=== PATIENT | male | born 1940 | race Caucasian/White ===

== ENCOUNTER 2017-07-14 18:50 | Emergency (ER) | payer MEDICARE, MEDICAID, SELFPAY | END 2017-07-14 20:19 | disposition home or self-care (01) | PROVIDERS: Emergency Provider Emergency Medicine; Family Provider Family Medicine; Visit Provider Emergency Medicine | DX: J20.9 Acute bronchitis, unspecified (principal); R07.89 Other chest pain; I25.10 Atherosclerotic heart disease of native coronary artery without angina pectoris; I25.2 Old myocardial infarction; E78.5 Hyperlipidemia, unspecified; I11.0 Hypertensive heart disease with heart failure; I50.9 Heart failure, unspecified; J44.0 Chronic obstructive pulmonary disease with (acute) lower respiratory infection; K21.9 Gastro-esophageal reflux disease without esophagitis; Z86.718 Personal history of other venous thrombosis and embolism; Z95.5 Presence of coronary angioplasty implant and graft; Z86.73 Personal history of transient ischemic attack (TIA), and cerebral infarction without residual deficits; Z99.81 Dependence on supplemental oxygen; Z79.82 Long term (current) use of aspirin; Z79.899 Other long term (current) drug therapy | CPT/HCPCS: 71020; 80053; 82550; 82553; 83605; 84484; 85025; 87040; 87070; 87077; 87205; 93005; 93041; 94640; 99283 ==

== ENCOUNTER 2017-09-10 10:14 | Inpatient (IN) | payer MEDICAID, MEDICARE, SELFPAY ==
[2017-09-10] VITALS (7 sets, daily range): BP systolic 130–166; BP diastolic 64–76; PULSE 80–94; RESP 20–24; TEMP 36.4–36.8; O2SAT 91–98; BMI 30.7; BMI 28.3
--- NOTE | 2017-09-10 10:39 | XR_ITS ---
XR chest 2V HISTORY: Cough and shortness of air ITS.REASON: COUGH ORDERING PHYSICIAN: Candace Guadalupe MD PATIENT AGE: 76 years COMPARISON: 07/14/2017 FINDINGS: There is cardiomegaly with mild pulmonary venous congestion consistent with mild CHF. Chronic interstitial changes once again noted with persistent 2.57 m nodular opacity overlying left lower chest which is been present dating back to 04/01/2016. There are chronic changes in the lingula. No lobar consolidation or collapse. IMPRESSION: Mild CHF Chronic parenchymal changes with no change in the 2.5 cm left lower lobe nodular opacity
--- NOTE | 2017-09-10 10:54 | HMH.EDSOB ---
ED Disposition Clinical Impression: COPD exacerbation, Respiratory acidosis, Atelectasis of both lungs, CAD (coronary artery disease) Disposition: Home, Self-Care Condition on Discharge: Fair Referrals: Colby Quan MD [Primary Care Provider] - - Critical Care Critical Care Time: No Attestation: On 09/10/17, the high probability of a clinically significant, sudden or life threatening deterioration of the following system(s) required my full and direct attention, intervention and personal management. The time I documented below is in addition to time spent performing reported procedures but includes the following listed in this critical care notation. Medical Decision Making - Medical Records Medical records reviewed: Yes: I reviewed the patient's medical records. Vital Signs: 09/10/17 10:29 Temperature 98.3 F Temperature Source Oral Pulse Rate [Right Brachial] 86 Respiratory Rate 24 Blood Pressure [Right Arm] 143/73 Blood Pressure Mean [Right Arm] 96 Blood Pressure Source [Right Arm] Automatic Cuff Blood Pressure Position [Right Arm] Sitting 02 Sat by Pulse Oximetry 98 Oxygen Delivery Method Room Air Nasal Cannula - Lab Data Lab Results 09/10/17 10:45: Specimen Source Right radial, O2 % 2 lpm, ABG pH 7.31 L, ABG pCO2 67.7 H, ABG pO2 64.0 L, ABG HCO3 33.3 H, ABG Total CO2 35.4 H, ABG O2 Saturation 91, ABG Base Excess 7.1 H, Claudio Test Acceptable 09/10/17 11:20: WBC 8.1, RBC 4.07 L, Hgb 12.0 L, Hct 38.5 L, MCV 94.6 H, MCH 29.5, MCHC 31.1 L, RDW 14.3, Plt Count 148, MPV 10.3, Neut % (Auto) 78.5, Lymph % (Auto) 14.2, [place] % (Auto) 6.3, Eos % (Auto) 0.6, Baso % (Auto) 0.4, Neut # (Auto) 6.4, Lymph # (Auto) 1.2, [place] # (Auto) 0.5, Eos # (Auto) 0.1, Baso # (Auto) 0.0 09/10/17 11:20: Sodium 143, Potassium 4.2, Chloride 102, Carbon Dioxide 37 H, Anion Gap 8.2, BUN 19 H, Creatinine 1.39 H, Estimated Creat Clear 54, Estimated GFR 50 L, Est GFR ( Amer) 60, Glucose 159 H, Calcium 8.6, Total Bilirubin 0.8, AST 24, ALT 49, Alkaline Phosphatase 111, Total Creatine Kinase 113, CK-MB (CK-2) 2.0, CK-MB (CK-2) Rel Index 1.8, Troponin I < 0.02, Total Protein 7.9, Albumin 3.9, Globulin 4.0 H, Albumin/Globulin Ratio 1.0 L 09/10/17 11:20: Lactic Acid 1.5 09/10/17 11:20: Influenza Type A Ag Negative, Influenza Type B Ag Negative Result diagrams: 09/10/17 11:20 09/10/17 11:20 Orders (Tests/Meds): ED MEDICATIONS Discontinued Medications Generic Name Dose Route Start Last Admin Trade Name Freq PRN Reason Stop Dose Admin Albuterol/Ipratropium 3 ml 09/10/17 10:51 Duoneb 3ml Neb IH 09/10/17 10:52 ONCE ONE Famotidine 20 mg 09/10/17 10:51 09/10/17 11:06 Pepcid 20mg/2ml Vial IV 09/10/17 10:52 20 mg ONCE ONE Administration Methylprednisolone Sodium Succinate 125 mg 09/10/17 10:51 09/10/17 11:06 Solu-Medrol 125mg/2ml Vial IV 09/10/17 10:52 125 mg ONCE ONE Administration ORDERS Category Date Time Status Chest XR 2 view (NOT portable) [XR chest 2V] Stat Exams 09/10/17 10:39 Taken B-Type Natriuretic Peptide Stat Lab 09/10/17 11:20 Received Blood Culture Stat Micro 09/10/17 11:20 Received Sputum Culture & Gram Stain Stat Micro 09/10/17 10:52 Ordered Arterial Blood Gas Stat RT 09/10/17 10:39 Ordered - Radiology Data #1 Image(s): Chest Image Reviewed: Yes I reviewed the patient's radiology image - Han Inquiry Pt receiving controlled substance: No Han was queried for this patient: No Medical Decision Making Narrative: Patient does have respiratory acidosis with bibasilar atelectasis, cannot exclude acute infiltrate, will Dr. Quan for admission. Leighann is automatic centrifugal station operator for him. Dr. Lawton accepted the patient for admission. Resp/SOB HPI - General Chief Complaint: Upper Respiratory Infection Stated Complaint: cough wheezing can't urinate Mode of Arrival: Ambulatory Limitations: No Limitations Description of Symptoms (Recalled from ER Triag
[2017-09-10 10:55] LABS: ABG Base Excess 7.1 mmol/L (-2.4-2.3); ABG HCO3 33.3 mmhg (22.0-26.0); ABG Oxygen Saturation 91 % (90-100); ABG PH 7.31 mmol/L (7.35-7.45); ABG TCO2 35.4 mmhg (23-27); Oxygen 2 LPM %
[2017-09-10 10:56] LABS: Allen's Test ACCEPTABLE; Source Right Radial
[2017-09-10 10:57] LABS: ABG PCO2 67.7 mmhg (35.0-45.0)
--- NOTE | 2017-09-10 11:01 | ED_ITS ---
ED Disposition Clinical Impression: COPD exacerbation, Respiratory acidosis, Atelectasis of both lungs, CAD ( coronary artery disease) Disposition: Home, Self-Care Condition on Discharge: Fair Referrals: Colby Quan MD [Primary Care Provider] - - Critical Care Critical Care Time: No Attestation: On 09/10/17, the high probability of a clinically significant, sudden or life threatening deterioration of the following system(s) required my full and direct attention, intervention and personal management. The time I documented below is in addition to time spent performing reported procedures but includes the following listed in this critical care notation. Medical Decision Making - Medical Records Medical records reviewed: Yes: I reviewed the patient's medical records. Vital Signs: 09/10/17 10:29 Temperature 98.3 F Temperature Source Oral Pulse Rate [Right Brachial] 86 Respiratory Rate 24 Blood Pressure [Right Arm] 143/73 Blood Pressure Mean [Right Arm] 96 Blood Pressure Source [Right Arm] Automatic Cuff Blood Pressure Position [Right Arm] Sitting 02 Sat by Pulse Oximetry 98 Oxygen Delivery Method Room Air Nasal Cannula - Lab Data Lab Results 09/10/17 10:45: Specimen Source Right radial, O2 % 2 lpm, ABG pH 7.31 L, ABG pCO2 67.7 H, ABG pO2 64.0 L, ABG HCO3 33.3 H, ABG Total CO2 35.4 H, ABG O2 Saturation 91, ABG Base Excess 7.1 H, Claudio Test Acceptable 09/10/17 11:20: WBC 8.1, RBC 4.07 L, Hgb 12.0 L, Hct 38.5 L, MCV 94.6 H, MCH 29.5, MCHC 31.1 L, RDW 14.3, Plt Count 148, MPV 10.3, Neut % (Auto) 78.5, Lymph % (Auto) 14.2, [place] % (Auto) 6.3, Eos % (Auto) 0.6, Baso % (Auto) 0.4, Neut # ( Auto) 6.4, Lymph # (Auto) 1.2, [place] # (Auto) 0.5, Eos # (Auto) 0.1, Baso # (Auto ) 0.0 09/10/17 11:20: Sodium 143, Potassium 4.2, Chloride 102, Carbon Dioxide 37 H, Anion Gap 8.2, BUN 19 H, Creatinine 1.39 H, Estimated Creat Clear 54, Estimated GFR 50 L, Est GFR ( Amer) 60, Glucose 159 H, Calcium 8.6, Total Bilirubin 0.8, AST 24, ALT 49, Alkaline Phosphatase 111, Total Creatine Kinase 113, CK-MB (CK-2) 2.0, CK-MB (CK-2) Rel Index 1.8, Troponin I < 0.02, Total Protein 7.9, Albumin 3.9, Globulin 4.0 H, Albumin/Globulin Ratio 1.0 L 09/10/17 11:20: Lactic Acid 1.5 09/10/17 11:20: Influenza Type A Ag Negative, Influenza Type B Ag Negative Result diagrams: 09/10/17 11:20 09/10/17 11:20 Orders (Tests/Meds): ED MEDICATIONS Discontinued Medications Generic Name Dose Route Start Last Admin Trade Name Freq PRN Reason Stop Dose Admin Albuterol/Ipratropium 3 ml 09/10/17 10:51 Duoneb 3ml Neb IH 09/10/17 10:52 ONCE ONE Famotidine 20 mg 09/10/17 10:51 09/10/17 11:06 Pepcid 20mg/2ml Vial IV 09/10/17 10:52 20 mg ONCE ONE Administration Methylprednisolone Sodium Succinate 125 mg 09/10/17 10:51 09/10/17 11:06 Solu-Medrol 125mg/2ml Vial IV 09/10/17 10:52 125 mg ONCE ONE Administration ORDERS Category Date Time Status Chest XR 2 view (NOT portable) [XR chest 2V] Stat Exams 09/10/17 10:39 Taken B-Type Natriuretic Peptide Stat Lab 09/10/17 11:20 Received Blood Culture Stat Micro 09/10/17 11:20 Received Sputum Culture & Gram Stain Stat Micro 09/10/17 10:52 Ordered Arterial Blood Gas Stat RT 09/10/17 10:39 Ordered - Radiology Data #1 Image(s): Chest
[2017-09-10 11:31] LABS: Basophils % 0.4 % (0.1-2.0); Eosinophils # 0.1 K/mm3 (0.0-0.4); Eosinophils % 0.6 % (0.1-12.0); Hematocrit 38.5 % (42.0-52.0); Lymphocytes # 1.2 K/mm3 (0.7-4.5); Lymphocytes % 14.2 K/mm3 (10-50); Mean Corpuscular HGB Conc 31.1 g/dL (31.8-35.4); Mean Corpuscular Hemoglobin 29.5 pg (27.0-31.2); Mean Corpuscular Volume 94.6 fl (80-94); Mean Platelet Volume 10.3 fl (7.4-10.4); Monocytes # 0.5 K/mm3 (0.1-1.0); Monocytes % 6.3 % (1.7-9.3); Neutrophils # 6.4 K/mm3 (1.8-7.8); Neutrophils % 78.5 % (37.0-80.0); Platelet Count 148 K/mm3 (142-424); Red Blood Count 4.07 M/mm3 (4.60-6.20); Red Cell Distribution Width 14.3 % (11.5-17.5); White Blood Count 8.1 K/mm3 (4.8-10.8)
[2017-09-10 11:45] LABS: Lactic Acid 1.5 mmol/L (0.4-2.0)
[2017-09-10 11:55] LABS: Alanine Aminotransferase 49 U/L (12-78); Albumin Level 3.9 gm/dL (3.4-5.0); Alkaline Phosphatase 111 U/L (46-116); Anion Gap 8.2 mEq/L (5-15); Aspartate Amino Transferase 24 U/L (15-37); Bilirubin,Total 0.8 mg/dL (0.2-1.0); Blood Urea Nitrogen 19 mg/dL (7-18); CKMB Relative Index 1.8 U/L (0-4.0); Calcium 8.6 mg/dL (8.5-10.1); Carbon Dioxide 37 mmol/L (21.0-32.0); Chloride 102 mmol/L (98-107); Creatine Kinase 113 U/L (39-308); Creatinine Clearance Estimated 54 mL/min (0-300); Creatinine,Serum 1.39 mg/dL (0.70-1.30); Estimated Glomerular Filt Rate 50 ml/min (>60); GFR (African American) 60 ML/MIN (>60); Glucose 159 mg/dL (74-106); Potassium 4.2 mmoL/L (3.5-5.1); Sodium 143 mmol/L (136-145); Total Protein,Serum 7.9 gm/dL (6.4-8.2); Troponin I < 0.02 ng/ml (0.00-0.06)
--- NOTE | 2017-09-10 20:10 | PC.NURSE ---
RN MADE AWARE OF BP
[2017-09-11] VITALS (16 sets, daily range): BP systolic 152–190; BP diastolic 66–100; PULSE 59–98; RESP 18–22; TEMP 36.4–36.9; O2SAT 88–96; BMI 27.6
--- NOTE | 2017-09-11 04:40 | PC.NURSE ---
PT WITH WHEEZING THROUGHOUT LUNGS. PRODUCTIVE COUGH. OXYGEN AT 2L PER NC. PT CONFUSED THIS AM, PULLED OUT IV FROM RIGHT FA. CONTINUE TO MONITOR.
[2017-09-11 07:06] LABS: Basophils % 0.1 % (0.1-2.0); Eosinophils % 0.1 % (0.1-12.0); Hematocrit 38.9 % (42.0-52.0); Hemoglobin 12.5 g/dL (14.1-18.0); Lymphocytes # 0.6 K/mm3 (0.7-4.5); Lymphocytes % 8.5 K/mm3 (10-50); Mean Corpuscular Hemoglobin 29.9 pg (27.0-31.2); Mean Corpuscular Volume 93.3 fl (80-94); Mean Platelet Volume 10.2 fl (7.4-10.4); Monocytes # 0.2 K/mm3 (0.1-1.0); Monocytes % 2.6 % (1.7-9.3); Neutrophils # 6.5 K/mm3 (1.8-7.8); Neutrophils % 88.7 % (37.0-80.0); Platelet Count 141 K/mm3 (142-424); Red Blood Count 4.17 M/mm3 (4.60-6.20); Red Cell Distribution Width 14.2 % (11.5-17.5); White Blood Count 7.4 K/mm3 (4.8-10.8)
[2017-09-11 07:07] LABS: MANUAL DIFFERENTIAL MANUAL DIFFERENTIAL (MANUAL DIFF)
[2017-09-11 07:12] LABS: Anion Gap 10.9 mEq/L (5-15); Blood Urea Nitrogen 20 mg/dL (7-18); Carbon Dioxide 36 mmol/L (21.0-32.0); Chloride 101 mmol/L (98-107); Creatinine Clearance Estimated 58 mL/min (0-300); Creatinine,Serum 1.17 mg/dL (0.70-1.30); Estimated Glomerular Filt Rate 60 ml/min (>60); GFR (African American) 73 ML/MIN (>60); Glucose 207 mg/dL (74-106); Potassium 3.9 mmoL/L (3.5-5.1); Sodium 144 mmol/L (136-145)
--- NOTE | 2017-09-11 07:36 | HMH.PHAVTE ---
[facility] Pharmacy VTE Monitoring - Patient Demographics Admission date: 09/10/17 Report Date: 09/11/17 Time: 07:36 Allergies/Adverse Reactions: Patient Allergies No Known Allergies Allergy (Unverified 07/18/17 14:45) Height: 1.68 m Weight: 78.16 kg Patient Problems: Current Active Problems COPD exacerbation (Acute) Respiratory acidosis (Acute) Atelectasis of both lungs (Acute) CAD (coronary artery disease) (Acute) - VTE Risk Labs: VTE Related Lab Results Hgb 12.5 g/dL (14.1-18.0) L 09/11/17 06:25 Hct 38.9 % (42.0-52.0) L 09/11/17 06:25 Plt Count 141 K/mm3 (142-424) L 09/11/17 06:25 BUN 20 mg/dL (7-18) H 09/11/17 06:25 Creatinine 1.17 mg/dL (0.70-1.30) 09/11/17 06:25 Estimated Creat Clear 58 mL/min (0-300) 09/11/17 06:25 Was VTE Risk Assessment Performed: Yes VTE Score: 5 VTE Risk Level: Low Risk - Prophylaxis VTE Prophylaxis Ordered?: Yes Types of VTE Prophylaxis: TEDS Knee High Location of Applied Device: Bilateral Lower Extremeties - VTE Diagnosis Confirmed Treatment or plan recommended: Continue Current Treatment
--- NOTE | 2017-09-11 09:07 | HMH.HP ---
*Admission Date: 09/10/17 <GarciaGiftyAna - 09/11/17 09:14> *Chief complaint: cough and SOB <GarciaGiftyAna 09/11/17 09:14> *History of present illness: Mr Kim is a 76 year old white male with COPD oxygen dependent, coronary artery disease, DM, and HTN. He has been experiencing shortness of breath with a cough for the past week. He was seen in the office of [facility] on 09/07/17 and was started on Amocxicillin. He filled the Rx 09/10/17; He went to a [facility] 09/09/17 and became SOB after. He called the ambulance service who gave him a breathing treatment which seemed to help. He again became worse 09/10/17 and a family member brought him to the ER for evaluation. He also describes a burning pain across the lower chest.. Tums did help briefly. He denies fever but did have RN. With evaluation in the ER patient was found to be in a respiratory acidosis. He was then admitted with a respiratory infection. This AM he states that he feels better. He did sleep. He states upon awakening this AM and he was confused and pulled out his IV. Now he is fine. He is sitting on the bedside and has finished all of his breakfast. <JoseAna 09/11/17 13:04> [facility] History Medical History: Reports:: Arrhythmia, Atherosclerotic Heart Disease, Atrial Fibrillation, Chronic Obstructive Pulmonary Disease (COPD), Coronary Artery Disease, Diabetes Mellitus Type 2, Gastroesophageal Reflux Disease(GERD), Home Oxygen, Hyperlipidemia, Hypertension, Lung Disease, Renal Disease, Ulcer <Ana Garcia 09/11/17 13:04> Comment: Metabolic encephalopathy <Ana Garcia 09/11/17 13:04> Laterality Cases: Bilateral: Cataract <Ana Garcia 09/11/17 13:04> Comment: Renal artery stent; LLE stent placement, cholecystectomy <Ana Garcia 09/11/17 13:04> - *Social History Smoking Status: Former smoker <Ana Garcia 09/11/17 09:14> Tobacco Type: cigarettes <Ana Garcia 09/11/17 09:14> Alcohol Intake: never <Ana Garcia 09/11/17 09:14> - Psychiatric History Expresses thoughts of harming self/others: None <Ana Garcia 09/11/17 09:14> Suicide Plan Description: No Plan <Ana Garcia 09/11/17 09:14> Review of Systems - Constitutional Reports chills, Denies body ache(s), Denies fever(s) <Ana Garcia 09/11/17 09:26> - ENT Reports dizziness, Denies sore throat [facility] 09/11/17 09:26> - *Cardiovascular Reports chest pain, Reports shortness of breath with activity, Denies excessive sweating, Denies generalized swelling, Denies leg swelling <[facility] 09/11/17 09:26> - *Respiratory Reports chest congestion, Reports cough, Reports shortness of breath, Reports wheezing, Denies coughing up blood <Ana Garcia 09/11/17 09:26> - *Gastrointestinal Denies abdominal pain, Denies belching, Denies bloating, Denies black, tarry stools <Ana Garcia 09/11/17 09:26> - *Genitourinary Reports difficulty urinating, Reports urinary hesitancy, Denies blood in urine <[facility] 09/11/17 09:26> - *Musculoskeletal Denies abnormal walking, Denies body aches <Ana Garcia 09/11/17 09:26> Meds Home Medications Medication Instructions Recorded Confirmed Type Albuterol Sulfate [Albuterol HFA 1 - 2 puffs IH Q4-6H PRN 09/10/17 09/10/17 History Inhaler] Aspirin [Aspir 81] 81 mg PO DAILY 09/10/17 09/10/17 History Atorvastatin Calcium [Lipitor 80mg 80 mg PO DAILY 09/10/17 09/10/17 History Tablet] Benzonatate [Benzonatate 100mg 100 mg PO TID PRN 09/10/17 09/10/17 History cap] Carvedilol [Carvedilol 25mg Tab] 25 mg PO BID 09/10/17 09/10/17 History Dabigatran Etexilate Mesylate 150 mg PO BID 09/10/17 09/10/17 History [Pradaxa] Esomeprazole Magnesium [Nexium] 40 mg PO DAILY 09/10/17 09/10/17 History Furosemide [Lasix 20mg tab] 20 mg PO DAILY 09/10/17 09/10/17 History Gabapentin [Gabapentin 300mg Cap] 300 mg PO TID 09/10/17 09/10/17 History Lisinopril [Lisinopril 20mg Tab] 20 mg PO
--- NOTE | 2017-09-11 09:15 | P.HP_ITS ---
*Admission Date: 09/10/17 <GarciaGiftyAna - 09/11/17 09:14> *Chief complaint: cough and SOB <GarciaGiftyAna 09/11/17 09:14> *History of present illness: Mr Kim is a 76 year old white male with COPD oxygen dependent, coronary artery disease, DM, and HTN. He has been experiencing shortness of breath with a cough for the past week. He was seen in the office of [facility] on 09/07/17 and was started on Amocxicillin. He filled the Rx 09/10/17; He went to a [facility] 09/09/17 and became SOB after. He called the ambulance service who gave him a breathing treatment which seemed to help. He again became worse 09/10/17 and a family member brought him to the ER for evaluation. He also describes a burning pain across the lower chest.. Tums did help briefly. He denies fever but did have RN. With evaluation in the ER patient was found to be in a respiratory acidosis. He was then admitted with a respiratory infection. This AM he states that he feels better. He did sleep. He states upon awakening this AM and he was confused and pulled out his IV. Now he is fine. He is sitting on the bedside and has finished all of his breakfast. <JoseAna 09/11/17 13:04> [facility] History Medical History: Reports:: Arrhythmia, Atherosclerotic Heart Disease, Atrial Fibrillation, Chronic Obstructive Pulmonary Disease (COPD), Coronary Artery Disease, Diabetes Mellitus Type 2, Gastroesophageal Reflux Disease(GERD), Home Oxygen, Hyperlipidemia, Hypertension, Lung Disease, Renal Disease, Ulcer < Ana Garcia 09/11/17 13:04> Comment: Metabolic encephalopathy <Ana Garcia 09/11/17 13:04> Laterality Cases: Bilateral: Cataract <Ana Garcia 09/11/17 13:04> Comment: Renal artery stent; LLE stent placement, cholecystectomy <Ana Garcia 09/11/17 13:04> - *Social History Smoking Status: Former smoker <Ana Garcia 09/11/17 09:14> Tobacco Type: cigarettes <Ana Garcia 09/11/17 09:14> Alcohol Intake: never <Ana Garcia 09/11/17 09:14> - Psychiatric History Expresses thoughts of harming self/others: None <Ana Garcia 09/11/17 09: 14> Suicide Plan Description: No Plan <Ana Garcia 09/11/17 09:14> Review of Systems - Constitutional Reports chills, Denies body ache(s), Denies fever(s) <Ana Garcia 09:26> - ENT Reports dizziness, Denies sore throat <[facility] 09/11/17 09:26> - *Cardiovascular Reports chest pain, Reports shortness of breath with activity, Denies excessive sweating, Denies generalized swelling, Denies leg swelling <Ana Garcia 09:26> - *Respiratory Reports chest congestion, Reports cough, Reports shortness of breath, Reports wheezing, Denies coughing up blood <Ana Garcia 09/11/17 09:26> - *Gastrointestinal Denies abdominal pain, Denies belching, Denies bloating, Denies black, tarry stools <Ana Garcia 09/11/17 09:26> - *Genitourinary Reports difficulty urinating, Reports urinary hesitancy, Denies blood in urine <[facility] 09/11/17 09:26> - *Musculoskeletal Denies abnormal walking, Denies body aches <Ana Garcia 09/11/17 09:26> Meds Home Medications Medication Instructions Recorded Confirmed Type Albuterol Sulfate [Albuterol HFA 1 - 2 puffs IH Q4-6H PRN 09/10/17 09/10/17 History Inhaler] Aspirin [Aspir 81] 81 mg PO DAILY 09/10/17 09/10/17 History Atorvastatin Calcium [Lipitor 80mg 80 mg PO DAILY 09/10/17 09/10/17 History Tablet] Benzonatate [Benzonatate 100mg 100 mg PO TID PRN 09/10/17 09/10/17 History cap] Carvedilol [Carvedilol 25mg Tab] 25
[2017-09-11 11:13] LABS: Lymphocytes % 9 % (10-50); Monocytes % 3 % (2-9); Neutrophils % 87 % (42-76); Platelet Estimate Normal; RBC Morphology Normal; Total Cells Counted 100
[2017-09-12] VITALS (9 sets, daily range): BP systolic 193–203; BP diastolic 90–107; PULSE 70–114; RESP 18–22; TEMP 36.4–36.6; O2SAT 2–98
--- NOTE | 2017-09-12 03:52 | PC.NURSE ---
PATIENT HAS BEEN AWAKE FOR MOST OF SHIFT, ONLY SLEEPING FOR A FEW HOURS ON AND OFF. HE HAS BEEN VERY RESTLESS AND WALKING AROUND IN ROOM. ON EXERTION PATIENT DOES BECOME SLIGHTLY SOA WITH AUDIBLE WHEEZES THROUGHOUT. NO DISTRESS NOTED. HE HAS DENIED ANY PAIN. HE DOES BECOME SLIGHTLY CONFUSED TO PLACE/SITUATION AT TIMES, BUT IS EASILY REORIENTED. PATIENT CURRENT IN BED AWAKE. NO OTHER PROBLEMS NOTED AT THIS TIME. VSS. WILL CONTINUE TO MONITOR. SAFETY MEASURES IN PLACE, CALL LIGHT IN REACH.
[2017-09-12 07:06] LABS: Blood Urea Nitrogen 27 mg/dL (7-18); Carbon Dioxide 35 mmol/L (21.0-32.0); Chloride 100 mmol/L (98-107); Creatinine Clearance Estimated 49 mL/min (0-300); Creatinine,Serum 1.35 mg/dL (0.70-1.30); Estimated Glomerular Filt Rate 51 ml/min (>60); GFR (African American) 62 ML/MIN (>60); Glucose 224 mg/dL (74-106); Sodium 142 mmol/L (136-145)
[2017-09-12 07:26] LABS: Basophils % 0.1 % (0.1-2.0); Eosinophils % 0.1 % (0.1-12.0); Hematocrit 39.3 % (42.0-52.0); Hemoglobin 12.7 g/dL (14.1-18.0); Lymphocytes # 0.9 K/mm3 (0.7-4.5); Lymphocytes % 8.7 K/mm3 (10-50); Mean Corpuscular HGB Conc 32.3 g/dL (31.8-35.4); Mean Corpuscular Volume 92.9 fl (80-94); Mean Platelet Volume 10.5 fl (7.4-10.4); Monocytes # 0.4 K/mm3 (0.1-1.0); Monocytes % 3.6 % (1.7-9.3); Neutrophils # 8.7 K/mm3 (1.8-7.8); Neutrophils % 87.6 % (37.0-80.0); Platelet Count 175 K/mm3 (142-424); Red Blood Count 4.23 M/mm3 (4.60-6.20); Red Cell Distribution Width 14.3 % (11.5-17.5); White Blood Count 9.9 K/mm3 (4.8-10.8)
[2017-09-12 07:30] LABS: MANUAL DIFFERENTIAL MANUAL DIFFERENTIAL (MANUAL DIFF)
--- NOTE | 2017-09-12 07:57 | HMH.ACPN2 ---
<Ana Garcia - Last Filed: 09/12/17 07:57> Internal Medicine - PN: Subj *Date: 09/12/17 *Time: 07:57 Interval history: Patient states he feels fine today. He states he has to be discharged to go to his daughter's . He denies chest pain and shortness of breath. Ambulates in the room without difficulty. He has been eating well. He has been voiding QS. Per nursing notes: patient was restless during the night. Up and wandering in the room much of the time. Blood pressure noted to be elevated as well. Has not been restarted on carvedilol or amlodipine. Exam Vital signs and Labs for Last 24 Hours: Temp Pulse Resp BP Pulse Ox 97.8 F 86 20 203/107 2 L 09/12/17 03:42 09/12/17 06:01 09/12/17 03:42 09/12/17 03:42 09/12/17 06:01 Laboratory Results - last 24 hr 09/11/17 06:25: Total Counted 100, Neutrophils % (Manual) 87 H, Band Neutrophils % 1.0, Lymphocytes % (Manual) 9 L, Monocytes % (Manual) 3, Platelet Estimate Normal, RBC Morphology Normal 09/12/17 06:35: WBC 9.9 D, RBC 4.23 L, Hgb 12.7 L, Hct 39.3 L, MCV 92.9, MCH 30.0, MCHC 32.3, RDW 14.3, Plt Count 175, MPV 10.5 H, Neut % (Auto) 87.6 H, Lymph % (Auto) 8.7 L, [place] % (Auto) 3.6, Eos % (Auto) 0.1, Baso % (Auto) 0.1, Neut # (Auto) 8.7 H, Lymph # (Auto) 0.9, [place] # (Auto) 0.4, Eos # (Auto) 0.0, Baso # (Auto) 0.0 09/12/17 06:35: Sodium 142, Potassium 4.0, Chloride 100, Carbon Dioxide 35 H, Anion Gap 11.0, BUN 27 H D, Creatinine 1.35 H, Estimated Creat Clear 49, Estimated GFR 51 L, Est GFR ( Amer) 62, Glucose 224 H I & O for Last 24 hours: Intake & Output 02/10/18 02/11/18 02/12/18 02/13/18 11:59 11:59 11:59 11:59 Intake Total 240 / 240 480 / 480 Output Total 550 / 550 Balance 240 / 240 -70 / -70 Weight 172 lb 5 oz 170 lb 6.677 oz - Constitutional no acute distress - *Routine Respiratory Exam Present: wheezes Comments: Do clear when sitting up. - *Routine Cardiovascular Exam Present: RRR - *Routine Abdominal Exam Present: soft, normoactive bowel sounds. Absent: tenderness - *Routine Extremities Exam Present: full ROM. Absent: edema - *Routine Neurological Exam Present: alert, oriented X3 Assessment and Plan (1) COPD exacerbation Current visit: Yes Status: Acute Category: Medical Code(s): J44.1 - Chronic obstructive pulmonary disease with (acute) exacerbation (2) COPD (chronic obstructive pulmonary disease) Current visit: Yes Status: Acute Category: Medical Code(s): J44.9 - Chronic obstructive pulmonary disease, unspecified (3) Respiratory acidosis Current visit: Yes Status: Acute Category: Medical Code(s): E87.2 - Acidosis (4) Chest pain Current visit: Yes Status: Acute Category: Medical Code(s): R07.9 - Chest pain, unspecified (5) CAD (coronary artery disease) Current visit: Yes Status: Chronic Category: Medical Code(s): I25.10 - Atherosclerotic heart disease of [place] coronary artery without angina pectoris (6) Non compliance with medical treatment Current visit: Yes Status: Acute Category: Medical Code(s): Z91.19 - Patient's noncompliance with other medical treatment and regimen - Assessment and plan all Dx Assessment and Plan for all problems:: Carvedilol and amlodipine reordered. Will continue with current care. Possibly home today. Pradaxa not available. Temporarily on Lovenox. <Colby Quan - Last Filed: 09/12/17 09:07> Internal Medicine - PN: Subj *Date: 09/12/17 *Time: 09:06 Exam Vital signs and Labs for Last 24 Hours: Temp Pulse Resp BP Pulse Ox 97.5 F L 94 H 22 193/90 98 09/12/17 07:54 09/12/17 07:54 09/12/17 07:54 09/12/17 07:54 09/12/17 07:54 Laboratory Results - last 24 hr 09/11/17 06:25: Total Counted 100, Neutrophils % (Manual) 87 H, Band Neutrophils % 1.0, Lymphocytes % (Manual) 9 L, Monocytes % (Manual) 3, Platelet Estimate Normal, RBC Morphology Normal 09/12/17 06:35: WBC 9.9 D, RBC 4.23
--- NOTE | 2017-09-12 08:01 | P.PN_ITS ---
<Ana Garcia - Last Filed: 09/12/17 07:57> Internal Medicine - PN: Subj *Date: 09/12/17 *Time: 07:57 Interval history: Patient states he feels fine today. He states he has to be discharged to go to his daughter's . He denies chest pain and shortness of breath. Ambulates in the room without difficulty. He has been eating well. He has been voiding QS. Per nursing notes: patient was restless during the night. Up and wandering in the room much of the time. Blood pressure noted to be elevated as well. Has not been restarted on carvedilol or amlodipine. Exam Vital signs and Labs for Last 24 Hours: Temp Pulse Resp BP Pulse Ox 97.8 F 86 20 203/107 2 L 09/12/17 03:42 09/12/17 06:01 09/12/17 03:42 09/12/17 03:42 09/12/17 06:01 Laboratory Results - last 24 hr 09/11/17 06:25: Total Counted 100, Neutrophils % (Manual) 87 H, Band Neutrophils % 1.0, Lymphocytes % (Manual) 9 L, Monocytes % (Manual) 3, Platelet Estimate Normal, RBC Morphology Normal 09/12/17 06:35: WBC 9.9 D, RBC 4.23 L, Hgb 12.7 L, Hct 39.3 L, MCV 92.9, MCH 30.0, MCHC 32.3, RDW 14.3, Plt Count 175, MPV 10.5 H, Neut % (Auto) 87.6 H, Lymph % (Auto) 8.7 L, [place] % (Auto) 3.6, Eos % (Auto) 0.1, Baso % (Auto) 0.1, Neut # (Auto) 8.7 H, Lymph # (Auto) 0.9, [place] # (Auto) 0.4, Eos # (Auto) 0.0, Baso # (Auto) 0.0 09/12/17 06:35: Sodium 142, Potassium 4.0, Chloride 100, Carbon Dioxide 35 H, Anion Gap 11.0, BUN 27 H D, Creatinine 1.35 H, Estimated Creat Clear 49, Estimated GFR 51 L, Est GFR ( Amer) 62, Glucose 224 H I & O for Last 24 hours: Intake & Output 02/10/18 02/11/18 02/12/18 02/13/18 11:59 11:59 11:59 11:59 Intake Total 240 / 240 480 / 480 Output Total 550 / 550 Balance 240 / 240 -70 / -70 Weight 172 lb 5 oz 170 lb 6.677 oz - Constitutional no acute distress - *Routine Respiratory Exam Present: wheezes Comments: Do clear when sitting up. - *Routine Cardiovascular Exam Present: RRR - *Routine Abdominal Exam Present: soft, normoactive bowel sounds. Absent: tenderness - *Routine Extremities Exam Present: full ROM. Absent: edema - *Routine Neurological Exam Present: alert, oriented X3 Assessment and Plan (1) COPD exacerbation Current visit: Yes Status: Acute Category: Medical Code(s): J44.1 - Chronic obstructive pulmonary disease with (acute) exacerbation (2) COPD (chronic obstructive pulmonary disease) Current visit: Yes Status: Acute Category: Medical Code(s): J44.9 - Chronic obstructive pulmonary disease, unspecified (3) Respiratory acidosis Current visit: Yes Status: Acute Category: Medical Code(s): E87.2 - Acidosis (4) Chest pain Current visit: Yes Status: Acute Category: Medical Code(s): R07.9 - Chest pain, unspecified (5) CAD (coronary artery disease) Current visit: Yes Status: Chronic Category: Medical Code(s): I25.10 - Atherosclerotic heart disease of [place] coronary artery without angina pectoris (6) Non compliance with medical treatment Current visit: Yes Status: Acute Category: Medical Code(s): Z91.19 - Patient's noncompliance with other medical treatment and regimen - Assessment and plan all Dx Assessment and Plan for all problems:: Carvedilol and amlodipine reordered. Will continue with current care. Possibly home today. Pradaxa not available. Temporarily on Lovenox. <Colby Quan - Last Filed: 09/12/17 09:07> Inter
[2017-09-12 09:19] LABS: Lymphocytes % 8 % (10-50); Monocytes % 4 % (2-9); Neutrophils % 88 % (42-76); Total Cells Counted 100
[2017-09-12 09:21] LABS: Ovalocytes 1+; Poikilocytosis 1+
[2017-09-12 09:22] LABS: Platelet Estimate Normal
--- NOTE | 2017-09-12 21:23 | HMH.DCSUM ---
General - General Admission date: 09/10/17 Discharge date: 09/12/17 HPI HPI: Mr Kim is a 76 year old white male with COPD oxygen dependent, coronary artery disease, DM, and HTN. He has been experiencing shortness of breath with a cough for the past week. He was seen in the office of [facility] on 09/07/17 and was started on Amoxicillin. He filled the Rx 09/10/17; He went to [place] 09[place]09[place]17 and became SOB afterward. He called the ambulance service who gave him a breathing treatment which seemed to help. He again became worse 09/10/17 and a family member brought him to the ER for evaluation. He also describes a burning pain across the lower chest. Tums did help briefly. He denies fever but did have RN. With evaluation in the ER patient was found to be in a respiratory acidosis. He was then admitted with a respiratory infection. This AM he states that he feels better. He did sleep. He states upon awakening this AM and he was confused and pulled out his IV. Now he is fine. He is sitting on the bedside and has finished all of his breakfast. Objective Vital signs: Temp Pulse Resp BP Pulse Ox 97.5 F L 84 18 193/90 93 L 09/12/17 07:54 09/12/17 12:00 09/12/17 12:00 09/12/17 07:54 09/12/17 12:00 Narrative: - Constitutional no acute distress Comments: sitting on bedside eating his breakfast - *Routine HEENT Exam Head: Present: normocephalic, atraumatic Eye: Present: PERRL. Absent: conjunctival icterus, scleral injection ENT: Present: mucous membranes moist Comments: no teeth - *Routine Neck Exam Present: supple, full ROM. Absent: lymphadenopathy, thyromegaly - *Routine Respiratory Exam Present: diminished air movement (bilaterally posteriorly; occasional wheeze) - *Routine Cardiovascular Exam Present: RRR, murmur - *Routine Abdominal Exam Present: soft, normoactive bowel sounds. Absent: tenderness, distended, guarding, firm - *Routine Extremities Exam Present: full ROM. Absent: edema - *Routine Neurological Exam Present: alert, oriented X3. Absent: altered mental status Hard of hearing Hospital Course Hospital Course: He was started on abx, nebs, and steroids. His CXR showed nothing acute. The patient improved and was able to be weaned from his oxygen. He was stable to be discharged home. Results Labs on day of discharge: Labs from last 24 hours 09/12/17 09/12/17 06:35 06:35 WBC 9.9 D RBC 4.23 L Hgb 12.7 L Hct 39.3 L MCV 92.9 MCH 30.0 MCHC 32.3 RDW 14.3 Plt Count 175 MPV 10.5 H Neut % (Auto) 87.6 H Lymph % (Auto) 8.7 L [place] % (Auto) 3.6 Eos % (Auto) 0.1 Baso % (Auto) 0.1 Neut # (Auto) 8.7 H Lymph # (Auto) 0.9 [place] # (Auto) 0.4 Eos # (Auto) 0.0 Baso # (Auto) 0.0 Total Counted 100 Neutrophils % (Manual) 88 H Lymphocytes % (Manual) 8 L Monocytes % (Manual) 4 Platelet Estimate Normal Poikilocytosis 1+ Ovalocytes 1+ Sodium 142 Potassium 4.0 Chloride 100 Carbon Dioxide 35 H Anion Gap 11.0 BUN 27 H D Creatinine 1.35 H Estimated Creat Clear 49 Estimated GFR 51 L Est GFR ( Amer) 62 Glucose 224 H DS: Diagnosis - Discharge Diagnosis (1) COPD exacerbation Status: Acute (2) Chest pain Status: Acute (3) Respiratory acidosis Status: Acute (4) Atelectasis of both lungs Status: Acute (5) COPD (chronic obstructive pulmonary disease) Status: Chronic (6) Non compliance with medical treatment Status: Chronic (7) CAD (coronary artery disease) Status: Chronic Discharge Plan - Patient Discharge Instructions ACTIVITY: Continue current activity DIET: continue same diet Patient Instructions: Chronic Obstructive Pulmonary Disease - Follow up Plan Follow up with: Colby Quan MD [Primary Care Provider] - 1 week Disposition: Home, Self-Retirement Medications: Home Medications
--- NOTE | 2017-09-12 21:26 | P.DS_ITS ---
General - General Admission date: 09/10/17 Discharge date: 09/12/17 HPI HPI: Mr Kim is a 76 year old white male with COPD oxygen dependent, coronary artery disease, DM, and HTN. He has been experiencing shortness of breath with a cough for the past week. He was seen in the office of [facility] on 09/07/17 and was started on Amoxicillin. He filled the Rx 09/10/17; He went to a [employer] [place] 09/09/17 and became SOB afterward. He called the ambulance service who gave him a breathing treatment which seemed to help. He again became worse 09/10/17 and a family member brought him to the ER for evaluation. He also describes a burning pain across the lower chest. Tums did help briefly. He denies fever but did have RN. With evaluation in the ER patient was found to be in a respiratory acidosis. He was then admitted with a respiratory infection. This AM he states that he feels better. He did sleep. He states upon awakening this AM and he was confused and pulled out his IV. Now he is fine. He is sitting on the bedside and has finished all of his breakfast. Objective Vital signs: Temp Pulse Resp BP Pulse Ox 97.5 F L 84 18 193/90 93 L 09/12/17 07:54 09/12/17 12:00 09/12/17 12:00 09/12/17 07:54 09/12/17 12:00 Narrative: - Constitutional no acute distress Comments: sitting on bedside eating his breakfast - *Routine HEENT Exam Head: Present: normocephalic, atraumatic Eye: Present: PERRL. Absent: conjunctival icterus, scleral injection ENT: Present: mucous membranes moist Comments: no teeth - *Routine Neck Exam Present: supple, full ROM. Absent: lymphadenopathy, thyromegaly - *Routine Respiratory Exam Present: diminished air movement (bilaterally posteriorly; occasional wheeze) - *Routine Cardiovascular Exam Present: RRR, murmur - *Routine Abdominal Exam Present: soft, normoactive bowel sounds. Absent: tenderness, distended, guarding, firm - *Routine Extremities Exam Present: full ROM. Absent: edema - *Routine Neurological Exam Present: alert, oriented X3. Absent: altered mental status Hard of hearing Hospital Course Hospital Course: He was started on abx, nebs, and steroids. His CXR showed nothing acute. The patient improved and was able to be weaned from his oxygen. He was stable to be discharged home. Results Labs on day of discharge: Labs from last 24 hours 09/12/17 09/12/17 06:35 06:35 WBC 9.9 D RBC 4.23 L Hgb 12.7 L Hct 39.3 L MCV 92.9 MCH 30.0 MCHC 32.3 RDW 14.3 Plt Count 175 MPV 10.5 H Neut % (Auto) 87.6 H Lymph % (Auto) 8.7 L [place] % (Auto) 3.6 Eos % (Auto) 0.1 Baso % (Auto) 0.1 Neut # (Auto) 8.7 H Lymph # (Auto) 0.9 [place] # (Auto) 0.4 Eos # (Auto) 0.0 Baso # (Auto) 0.0 Total Counted 100 Neutrophils % (Manual) 88 H Lymphocytes % (Manual) 8 L Monocytes % (Manual) 4 Platelet Estimate Normal Poikilocytosis 1+ Ovalocytes 1+ Sodium 142 Potassium 4.0 Chloride 100 Carbon Dioxide 35 H Anion Gap 11.0 BUN 27 H D Creatinine 1.35 H Estimated Creat Clear 49 Estimated GFR 51 L E
== END 2017-09-12 13:45 | disposition home or self-care (01) | DRG 191 ==
LOC: ER 12:47 → 2ND 13:19
PROVIDERS: Admitting Provider Family Medicine; Emergency Provider Emergency Medicine; Family Provider Family Medicine; PCP Family Medicine; Visit Provider Family Medicine
DX: J44.1 Chronic obstructive pulmonary disease with (acute) exacerbation (principal); E87.2 Acidosis; I11.0 Hypertensive heart disease with heart failure; I50.9 Heart failure, unspecified; Z99.81 Dependence on supplemental oxygen; J98.11 Atelectasis; I25.10 Atherosclerotic heart disease of native coronary artery without angina pectoris; E11.9 Type 2 diabetes mellitus without complications; R07.9 Chest pain, unspecified; R41.0 Disorientation, unspecified; Z87.891 Personal history of nicotine dependence; Z79.82 Long term (current) use of aspirin; Z79.899 Other long term (current) drug therapy; Z79.02 Long term (current) use of antithrombotics/antiplatelets; Z91.14 Patient's other noncompliance with medication regimen
CPT/HCPCS: 71046; 80048; 80053; 82550; 82553; 82803; 83605; 83880; 84484; 85007; 85025; 87040; 87275; 87276; 94640; 94760; 94761; 96374; 96375; 99283; G0378

== ENCOUNTER → 2017-09-26 10:33 | Outpatient (REF) | payer MEDICARE, MEDICAID, SELFPAY | LOC: LAB 10:33 | PROVIDERS: Visit Provider Podiatrist | DX: B35.1 Tinea unguium (principal) | CPT/HCPCS: 87220 ==

== ENCOUNTER 2017-10-02 12:29 | Inpatient (IN) | payer MEDICAID, MEDICARE, SELFPAY ==
[2017-10-02 12:36] VITALS: BP 143/74; PULSE 77; RESP 32; TEMP 36.6; O2SAT 90; BMI 32.9
--- NOTE | 2017-10-02 12:50 | XR_ITS ---
XR chest 2V HISTORY: ITS.REASON: COUGH, SOA ORDERING PHYSICIAN: Quang Garcia MD PATIENT AGE: 77 years COMPARISON: 09 10 17 FINDINGS: Mild pulmonary venous congestion once again noted. Chronic nodular opacity is present in the left lower lung zone as previously described. There are increased markings in both lung bases which may be due to mild peribronchial inflammatory changes. No effusions. No acute bony anomalies. IMPRESSION: Mild CHF with patchy increased density in both lower lobes suggesting atelectasis or infiltrate/peribronchial inflammatory change No change left lower lung zone nodule
[2017-10-02 13:25] LABS: Lactic Acid 1.4 mmol/L (0.4-2.0)
--- NOTE | 2017-10-02 14:05 | HMH.EDSOB ---
ED Disposition Clinical Impression: Congestive heart failure Qualifiers: Congestive heart failure type: systolic Congestive heart failure chronicity: acute Qualified Code(s): I50.21 - Acute systolic (congestive) heart failure Pneumonia Qualifiers: Pneumonia type: due to unspecified organism Laterality: right Lung location: lower lobe of lung Qualified Code(s): J18.1 - Lobar pneumonia, unspecified organism Disposition: Admitted As Inpatient Condition on Discharge: Good Time of Disposition: 17:47 - Critical Care Critical Care Time: No Attestation: On 10/02/17, the high probability of a clinically significant, sudden or life threatening deterioration of the following system(s) required my full and direct attention, intervention and personal management. The time I documented below is in addition to time spent performing reported procedures but includes the following listed in this critical care notation. Medical Decision Making - Medical Records Medical records reviewed: Yes: I reviewed the patient's medical records. Vital Signs: 10/02/17 12:36 Temperature 97.9 F Temperature Source Oral Pulse Rate [Right Radial] 77 Respiratory Rate 32 H Blood Pressure [Right Arm] 143/74 Blood Pressure Mean [Right Arm] 97 Blood Pressure Source [Right Arm] Automatic Cuff Blood Pressure Position [Right Arm] Supine 02 Sat by Pulse Oximetry 90 L Oxygen Delivery Method Room Air - Lab Data Lab results reviewed: Yes: I reviewed the patient's lab results. Lab Results 10/02/17 11:05: Lactic Acid 1.4 10/02/17 13:38: WBC 6.7, RBC 3.78 L, Hgb 11.3 L, Hct 36.5 L, MCV 96.4 H, MCH 29.8, MCHC 30.9 L, RDW 14.7, Plt Count 85 L, MPV 9.7, Neut % (Auto) 67.2, Lymph % (Auto) 21.7, [place] % (Auto) 6.7, Eos % (Auto) 4.1, Baso % (Auto) 0.2, Neut # (Auto) 4.5, Lymph # (Auto) 1.5, [place] # (Auto) 0.5, Eos # (Auto) 0.3, Baso # (Auto) 0.0 10/02/17 13:38: PT 10.9, INR 1.01 10/02/17 13:38: Sodium 141, Potassium 4.2, Chloride 104, Carbon Dioxide 36 H, Anion Gap 5.2, BUN 18, Creatinine 1.20, Estimated Creat Clear 59, Estimated GFR 59, Est GFR ( Amer) 71, Glucose 151 H, Calcium 8.1 L, Total Bilirubin 1.3 H, AST 16, ALT 39, Alkaline Phosphatase 63, Total Protein 6.2 L, Albumin 2.8 L, Globulin 3.4 H, Albumin/Globulin Ratio 0.8 L 10/02/17 13:38: B-Natriuretic Peptide 352 H 10/02/17 13:38: Total Creatine Kinase 67, CK-MB (CK-2) 1.3 D, CK-MB (CK-2) Rel Index 1.9, Troponin I < 0.02 10/02/17 16:15: Total Creatine Kinase 72, CK-MB (CK-2) 1.4, CK-MB (CK-2) Rel Index 1.9, Troponin I < 0.02 Result diagrams: 10/02/17 13:38 10/02/17 13:38 Orders (Tests/Meds): ED MEDICATIONS Generic Name Dose Route Start Last Admin Trade Name Freq PRN Reason Stop Dose Admin Albuterol Sulfate 2 puffs 10/02/17 18:22 Proventil-Hfa 90mcg/Puff Inhaler IH 11/01/17 18:21 Q4H [facility] Amlodipine Besylate 2.5 mg 10/03/17 09:00 Norvasc 2.5mg Tablet PO 11/02/17 08:59 DAILY DARA Aspirin 81 mg 10/03/17 09:00 Aspirin 81mg Enteric Coated Tablet PO 11/02/17 08:59 DAILY DARA Benzonatate 100 mg 10/02/17 18:22 Tessalon Perles 100mg Capsule PO 11/01/17 18:21 TID PRN Cough Carvedilol 25 mg 10/02/17 21:00 Coreg 25mg Tablet PO 11/01/17 20:59 BID DARA Furosemide 20 mg 10/02/17 21:00 Lasix 20mg/2ml Vial IV 11/01/17 20:59 Q12 DARA Gabapentin 300 mg 10/02/17 21:00 Neurontin 300mg Capsule PO 11/01/17 20:59 TID DARA Azithromycin 500 mg/ Sodium 250 mls @ 250 mls/hr 10/03/17 16:15 Chloride IV 10/16/17 16:14 Q24H [facility] Protocol Ceftriaxone Sodium 1 gm/ 50 mls @ 100 mls/hr 10/03/17 16:15 Sodium Chloride IV 10/16/17 16:14 Q24H [facility] Lisinopril 20 mg 10/02/17 21:00 Zestril 20mg Tab PO 11/01/17 20:59 BID [facility] Non-Formulary Medication 80 mg 10/03/17 09:00 Atorvastatin Calcium [Lipitor 80mg Tablet] PO 11/02/17 08:59 DAILY [facility] Non-Formulary Medic
[2017-10-02 14:18] LABS: Alanine Aminotransferase 39 U/L (12-78); Albumin Level 2.8 gm/dL (3.4-5.0); Albumin/Globulin Ratio 0.8 (1.1-1.8); Alkaline Phosphatase 63 U/L (46-116); Anion Gap 5.2 mEq/L (5-15); Aspartate Amino Transferase 16 U/L (15-37); Bilirubin,Total 1.3 mg/dL (0.2-1.0); Blood Urea Nitrogen 18 mg/dL (7-18); Calcium 8.1 mg/dL (8.5-10.1); Carbon Dioxide 36 mmol/L (21.0-32.0); Chloride 104 mmol/L (98-107); Creatinine Clearance Estimated 59 mL/min (0-300); Estimated Glomerular Filt Rate 59 ml/min (>60); GFR (African American) 71 ML/MIN (>60); Globulin 3.4 gm/dl (1.3-3.2); Glucose 151 mg/dL (74-106); Potassium 4.2 mmoL/L (3.5-5.1); Sodium 141 mmol/L (136-145); Total Protein,Serum 6.2 gm/dL (6.4-8.2)
[2017-10-02 14:22] LABS: Basophils % 0.2 % (0.1-2.0); Eosinophils # 0.3 K/mm3 (0.0-0.4); Eosinophils % 4.1 % (0.1-12.0); Hematocrit 36.5 % (42.0-52.0); Hemoglobin 11.3 g/dL (14.1-18.0); Lymphocytes # 1.5 K/mm3 (0.7-4.5); Lymphocytes % 21.7 K/mm3 (10-50); Mean Corpuscular HGB Conc 30.9 g/dL (31.8-35.4); Mean Corpuscular Hemoglobin 29.8 pg (27.0-31.2); Mean Corpuscular Volume 96.4 fl (80-94); Mean Platelet Volume 9.7 fl (7.4-10.4); Monocytes # 0.5 K/mm3 (0.1-1.0); Monocytes % 6.7 % (1.7-9.3); Neutrophils # 4.5 K/mm3 (1.8-7.8); Neutrophils % 67.2 % (37.0-80.0); Platelet Count 85 K/mm3 (142-424); Red Blood Count 3.78 M/mm3 (4.60-6.20); Red Cell Distribution Width 14.7 % (11.5-17.5); White Blood Count 6.7 K/mm3 (4.8-10.8)
--- NOTE | 2017-10-02 14:27 | PC.NURSE ---
375ML OUTPUT DURING LASIX ADMINISTRATION
[2017-10-02 14:30] LABS: INR 1.01 (0.9-1.1); Prothrombin Time 10.9 seconds (9.4-11.8)
[2017-10-02 16:25] LABS: CKMB Relative Index 1.9 U/L (0-4.0); Creatine Kinase 67 U/L (39-308); Creatine Kinase MB 1.3 mg/ml (0.0-3.6); Troponin I < 0.02 ng/ml (0.00-0.06)
[2017-10-02 16:44] LABS: CKMB Relative Index 1.9 U/L (0-4.0); Creatine Kinase 72 U/L (39-308); Creatine Kinase MB 1.4 mg/ml (0.0-3.6); Troponin I < 0.02 ng/ml (0.00-0.06)
[2017-10-02 17:43] VITALS: BMI 27.4
--- NOTE | 2017-10-02 18:26 | PC.NURSE ---
REPORT CALLED TO SHAI LOPEZ
[2017-10-02 18:44] VITALS: BP 132/80; PULSE 75; RESP 18; TEMP 36.7; O2SAT 98
[2017-10-02 19:22] VITALS: O2SAT 95
[2017-10-02 20:00] VITALS: BP 108/56; PULSE 87; RESP 16; O2SAT 96
[2017-10-03] VITALS (10 sets, daily range): BP systolic 102–129; BP diastolic 51–72; PULSE 78–96; RESP 16–20; TEMP 36.1–37; O2SAT 91–99
--- NOTE | 2017-10-03 02:48 | PC.NURSE ---
HE IS A&OX3. He reports SOA with exertion. 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 Denies pain. Productive cough with yellowish, white sputum. Voiding per urinal. He is NPO for cardiology consult.
--- NOTE | 2017-10-03 07:44 | HMH.PHAVTE ---
[facility] VTE Monitoring - Patient Demographics Admission date: 10/02/17 Report Date: 10/03/17 Time: 07:44 Allergies/Adverse Reactions: Patient Allergies No Known Allergies Allergy (Verified 10/02/17 12:48) Height: 1.68 m Weight: 77.111 kg Patient Problems: Current Active Problems Congestive heart failure (Acute) Pneumonia (Acute) - VTE Risk Labs: VTE Related Lab Results Hgb 11.3 g/dL (14.1-18.0) L 10/02/17 13:38 Hct 36.5 % (42.0-52.0) L 10/02/17 13:38 Plt Count 85 K/mm3 (142-424) L 10/02/17 13:38 PT 10.9 seconds (9.4-11.8) 10/02/17 13:38 INR 1.01 (0.9-1.1) 10/02/17 13:38 BUN 18 mg/dL (7-18) 10/02/17 13:38 Creatinine 1.20 mg/dL (0.70-1.30) 10/02/17 13:38 Estimated Creat Clear 59 mL/min (0-300) 10/02/17 13:38 Was VTE Risk Assessment Performed: Yes VTE Score: 7 VTE Risk Level: Moderate Risk Clinical Trial Participant: Yes - Prophylaxis VTE Prophylaxis Ordered?: Yes Types of VTE Prophylaxis: TEDS Knee High
--- NOTE | 2017-10-03 08:24 | HMH.CNCARD ---
History of Present Illness Consult date: 10/03/17 Requesting physician: Colby Quan Consult reason: shortness of breath Chief complaint: SOA Additional Medical History:: 1. CAD A. History of [place] and coronary stenting, approximately 1999 2. HTN 3. HLD 4. Tobacco use 5. History of CVA about 2014, no residual 6. History of A. fib, on anticoagulation History of present illness: 77 yo WM with history of CAD, previous [place] and coronary stenting with treatment for HTN and hyperlipidemia was admitted yesterday for shortness of breath. Patient denies chest pain. BNP elevated with Chest x-ray revealed evidence of congestive heart failure and infiltrate. Cardiac troponins have returned normal. Pt is feeling better this AM. Previous cardiology workup has been with Dr. Meadows at [facility] in [place] but patient wishes to switch to local care. [facility] History Medical History: Reports:: Arrhythmia, Atherosclerotic Heart Disease, Atrial Fibrillation, Chronic Obstructive Pulmonary Disease (COPD), Coronary Artery Disease, Gastroesophageal Reflux Disease(GERD), Home Oxygen, Hyperlipidemia, Hypertension, Lung Disease, Renal Disease, Ulcer Denies:: Cancer, Diabetes Mellitus Type 1, Diabetes Mellitus Type 2, MRSA Other Surgeries: Yes: Cardiac Catheterization Amputation: No - *Social History Educational Level: Attended Grade School Smoking Status: Former smoker Tobacco Type: cigarettes Smoking End Date: 2002 Alcohol Intake: never Occupational Status: retired Household Members: children - Psychiatric History Expresses thoughts of harming self/others: None Suicide Plan Description: No Plan *Family Hx:: Cancer, Diabetes, Heart Attack, Stroke, Hyperlipidemia, Hypertension Meds Home Medications Medication Instructions Recorded Confirmed Type Albuterol Sulfate [Albuterol HFA 1 - 2 puffs IH Q4-6H PRN 09/10/17 10/02/17 History Inhaler] Aspirin [Aspir 81] 81 mg PO DAILY 09/10/17 10/02/17 History Atorvastatin Calcium [Lipitor 80mg 80 mg PO HS 09/10/17 10/03/17 History Tablet] Carvedilol [Carvedilol 25mg Tab] 25 mg PO BID 09/10/17 10/02/17 History Dabigatran Etexilate Mesylate 150 mg PO BID 09/10/17 10/02/17 History [Pradaxa] Esomeprazole Magnesium [Nexium] 40 mg PO DAILY 09/10/17 10/02/17 History Furosemide [Lasix 20mg tablet] 20 mg PO DAILY 09/10/17 10/02/17 History Gabapentin [Gabapentin 300mg Cap] 300 mg PO TID 09/10/17 10/02/17 History Lisinopril [Lisinopril 20mg Tab] 20 mg PO BID 09/10/17 10/02/17 History Tamsulosin HCl [Flomax 0.4mg 0.4 mg PO DAILY 09/10/17 10/02/17 History capsule] Amlodipine Besylate [Norvasc 2.5mg 2.5 mg PO DAILY 09/11/17 10/02/17 History tablet] Allergies Allergy/AdvReac Type Severity Reaction Status Date / Time No Known Allergies Allergy Verified 10/02/17 12:48 Review of Systems - *Cardiovascular Reports shortness of breath - *Respiratory Reports cough, Reports shortness of breath - *Gastrointestinal Denies abdominal pain Exam Vital signs and Labs for Last 24 Hours: Temp Pulse Resp BP Pulse Ox 98.6 F 89 17 124/59 96 10/03/17 03:44 10/03/17 03:44 10/03/17 03:44 10/03/17 03:44 10/03/17 06:27 I & O for Last 24 hours: Intake & Output 09/30/17 10/01/17 10/02/17 10/03/17 11:59 11:59 11:59 11:59 Intake Total 260 / 260 Output Total 240 / 240 Balance 20 / 20 Weight 170 lb Microbiology Reports for the Last 24 Hours: Microbiology 10/02/17 19:08 Sputum - Expectorated Sputum Gram Stain - Final 10/02/17 19:08 Sputum - Expectorated Sputum Sputum Culture - Preliminary - *Routine Neck Exam Absent: JVD, carotid bruit - *Routine Respiratory Exam Present: diminished air movement Comments: end expiratory wheezing noted. - *Routine Cardiovascular Exam Present: RRR. Absent: murmur, gallop - *Routine Abdominal Exam Present: soft. Absent: tenderness - *Routine Extremities Exam Absent: edema - *R
--- NOTE | 2017-10-03 08:27 | HMH.HP ---
*Admission Date: 10/02/17 <Verónica Sorensen 10/03/17 08:36> *Chief complaint: shortness of breath <Verónica Sorensen 10/03/17 08:36> *History of present illness: Patient has cough with some sputum production today. <Colby Quan - 10/03/17 09:13> Mr. Kim is a 77yo WM with hx Afib, ASCVD with stent, COPD, HTN, CHF, CKD who was recently discharged from [facility] after inpatient treatment for CHF. He was brought to the [facility] ED yesterday due to some increasing SOB while at rest at home. Upon evaluation, his BNP was elevated and troponin was normal. CXR showed mild CHF with patchy increased density in both lower lobes suggesting atelectasis or infiltrate/peribronchial inflammatory change. Due to his many comorbid conditions, his case was discussed with Dr. Quan and he was admitted for further evaluation and treatment. He was started on IV antibiotics and furosemide. This morning, he is feeling better. He denies any pain. He has a productive cough and some SOBOE. He denies N/V/D and is voiding without difficulty. <Verónica Sorensen 10/03/17 08:54> [facility] History I have reviewed the patient's past medical history: Yes <Verónica Sorensen 10/03/17 08:54> Medical History: Reports:: Arrhythmia, Atherosclerotic Heart Disease, Atrial Fibrillation, Congestive Heart Failure, Chronic Obstructive Pulmonary Disease (COPD), Coronary Artery Disease, Gastroesophageal Reflux Disease(GERD), Home Oxygen, Hyperlipidemia, Hypertension, Lung Disease, Renal Disease, Ulcer Denies:: Cancer, Diabetes Mellitus Type 1, Diabetes Mellitus Type 2, Hepatitis, MRSA, Seizures, Transient Ischemic Attacks (TIA) <Verónica Sorensen 10/03/17 08:54> Other Medical History: Denies: Hypothyroidism, Thyroid Disease <Verónica Sorensen 10/03/17 08:54> Other Surgeries: Yes: Cardiac Catheterization <Verónica Sorensen 10/03/17 08:36> Amputation: No <Verónica Soernsen 10/03/17 08:36> - *Social History Educational Level: Attended Grade School <Verónica Sorensen 10/03/17 08:36> Smoking Status: Former smoker <Verónica Sorensen 10/03/17 08:36> Tobacco Type: cigarettes <EduVerónica 10/03/17 08:36> Smoking End Date: 2002 <Verónica Sorensen 10/03/17 08:36> Alcohol Intake: current <EduVerónica 10/03/17 08:54> Alcohol Intake Frequency:: a few times a month (6 pack/month) <Verónica Sorensen 10/03/17 08:54> Substance Use Type: denies use <Verónica Sorensen 10/03/17 08:54> Occupational Status: retired <Verónica Sorensen 10/03/17 08:36> Household Members: children <Verónica Sorensen 10/03/17 08:36> - Psychiatric History Expresses thoughts of harming self/others: None <Verónica Sorensen 10/03/17 08:36> Suicide Plan Description: No Plan <Verónica Sorensen 10/03/17 08:36> *Family Hx:: Cancer, Diabetes, Heart Attack, Stroke, Hyperlipidemia, Hypertension <Verónica Sorensen 10/03/17 08:36> Review of Systems - Review of Systems Review of systems:: pertinent systems reviewed and negative unless documented below <Verónica Sorensen 10/03/17 08:54> - *Cardiovascular Reports shortness of breath, Reports shortness of breath with activity, Reports shortness of breath when lying down, Denies chest pain, Denies generalized swelling, Denies leg swelling, Denies lightheadedness <Verónica Sorensen 10/03/17 08:54> - *Respiratory Reports chest congestion, Reports cough <Verónica Sorensen 10/03/17 08:54> Meds Home Medications Medication Instructions Recorded Confirmed Type Albuterol Sulfate [Albuterol HFA 1 - 2 puffs IH Q4-6H PRN 09/10/17 10/02/17 History Inhaler] Aspirin [Aspir 81] 81 mg PO DAILY 09/10/17 10/02/17 History Atorvastatin Calcium [Lipitor 80mg 80 mg PO HS 09/10/17 10/03/17 History Tablet] Carvedilol [Carvedilol 25mg Tab] 25 mg PO BID 09/10/17 10/02/17 History Dabigatran Etexilate Mesylate 150 mg PO BID 09/10/17 10/02/17 History [Pradaxa] Esomeprazole Magnesium [Nexium] 40 mg PO DAILY 09/10/17 10/02/17 History Furosemide [Lasix 20mg tablet] 20 mg PO DAILY 09/10/17 10/02/17 History Gabapentin [Gabapentin 300mg Cap] 300 mg PO TID 09/10/17 03
--- NOTE | 2017-10-03 08:36 | P.HP_ITS ---
*Admission Date: 10/02/17 <Verónica Sorensen 10/03/17 08:36> *Chief complaint: shortness of breath <Verónica Sorensen 10/03/17 08:36> *History of present illness: Patient has cough with some sputum production today. <Colby Quan - 10/03/17 09:13> Mr. Kim is a 77yo WM with hx Afib, ASCVD with stent, COPD, HTN, CHF, CKD who was recently discharged from [place] after inpatient treatment for CHF. He was brought to the [facility] ED yesterday due to some increasing SOB while at rest at home. Upon evaluation, his BNP was elevated and troponin was normal. CXR showed mild CHF with patchy increased density in both lower lobes suggesting atelectasis or infiltrate/peribronchial inflammatory change. Due to his many comorbid conditions, his case was discussed with Dr. Quan and he was admitted for further evaluation and treatment. He was started on IV antibiotics and furosemide. This morning, he is feeling better. He denies any pain. He has a productive cough and some SOBOE. He denies N/V/D and is voiding without difficulty. <Verónica Sorensen 10/03/17 08:54> [facility] History I have reviewed the patient's past medical history: Yes <Verónica Sorensen 08:54> Medical History: Reports:: Arrhythmia, Atherosclerotic Heart Disease, Atrial Fibrillation, Congestive Heart Failure, Chronic Obstructive Pulmonary Disease ( COPD), Coronary Artery Disease, Gastroesophageal Reflux Disease(GERD), Home Oxygen, Hyperlipidemia, Hypertension, Lung Disease, Renal Disease, Ulcer Denies:: Cancer, Diabetes Mellitus Type 1, Diabetes Mellitus Type 2, Hepatitis, MRSA, Seizures, Transient Ischemic Attacks (TIA) <Verónica Sorensen 01/15 08:54> Other Medical History: Denies: Hypothyroidism, Thyroid Disease <Verónica Sorensen 10/03/17 08:54> Other Surgeries: Yes: Cardiac Catheterization <Verónica Sorensen 10/03/17 08:36> Amputation: No <Verónica Sorensen 10/03/17 08:36> - *Social History Educational Level: Attended Grade School <Verónica Sorensen 10/03/17 08:36> Smoking Status: Former smoker <Verónica Sorensen 10/03/17 08:36> Tobacco Type: cigarettes <EduVerónica 10/03/17 08:36> Smoking End Date: 2002 <Verónica Sorensen 10/03/17 08:36> Alcohol Intake: current <Verónica Sorensen 10/03/17 08:54> Alcohol Intake Frequency:: a few times a month (6 pack/month) <Verónica Sorensen 08:54> Substance Use Type: denies use <Verónica Sorensen 10/03/17 08:54> Occupational Status: retired <Verónica Sorensen 10/03/17 08:36> Household Members: children <Verónica Sorensen 10/03/17 08:36> - Psychiatric History Expresses thoughts of harming self/others: None <Verónica Sorensen 10/03/17 08:36> Suicide Plan Description: No Plan <Verónica Sorensen 10/03/17 08:36> *Family Hx:: Cancer, Diabetes, Heart Attack, Stroke, Hyperlipidemia, Hypertension <Verónica Sorensen 10/03/17 08:36> Review of Systems - Review of Systems Review of systems:: pertinent systems reviewed and negative unless documented below <Verónica Sorensen 10/03/17 08:54> - *Cardiovascular Reports shortness of breath, Reports shortness of breath with activity, Reports shortness of breath when lying down, Denies chest pain, Denies generalized swelling, Denies leg swelling, Denies lightheadedness <Verónica Sorensen 10/03/17 08:54> - *Respiratory Reports chest congestion, Reports cough <Verónica Sorensen 10/03/17 08:54> Meds Home Medications Medication Instructions Recorded Confirmed Type Albuterol Sulfate [Albuterol HFA 1 - 2 puffs IH Q4-6H PRN 09/10/17 10/02/17 History Inhaler] Aspirin [Aspir 81] 81 mg PO DAILY 09/10/17 10/02/17 History Atorvastatin Calcium [Lipitor 80mg 80 mg PO HS 09/10/17 10/03/17 History Tablet]
--- NOTE | 2017-10-03 08:52 | CA_ITS ---
PROCEDURE: 2-D M-mode and color Doppler study INDICATIONS FOR THE TEST: Chest pain COPD+ Heart Murmur Tobacco Smoking Palpitations Fatigue Syncope Edema Hypertension+Diabetes Mellitus Rheumatic Fever SOB+ALLISON Obesity Hyperlipidemia+ Family History HD Additional History pneumonia, afib, stent, CKD PATIENT INFORMATION HEIGHT: 66 WEIGHT: 170 GENDER: Male B/P: 114/51 2-D/M-MODE INTERPRETATION: 2-D MEASUREMENTS OBSERVED VALUES IN CMS Right Ventricular Dimension (RVDd) 1.9 Interventricular Septum (Thickness)(IVsd) 1.3 Left Ventricular Internal Dimensions(LVIDd) 4.6 Left Ventricular Posterior Wall (Thickness)(LVPWd) 1.0 Aortic Root 3.0 Aortic Cusp Separation 2.0 Left Atrial Dimensions (LAD) 3.6 2D 1. Left atrium is mildly enlarged, left ventricle is normal size, there is mild concentric left ventricular hypertrophy, visually estimated ejection fraction 55% with no obvious regional wall motion abnormality. 2. The right atrium and right ventricle are mildly enlarged with normal contractility. 3. The aortic valve is minimally thickened and fibrosed. 4. The mitral and tricuspid valve leaflets are minimally thickened. 5. The pulmonic valve is poorly visualized. 6. No significant pericardial effusion noted. DOPPLER INTERROGATION: Doppler interrogation of the aortic, mitral and tricuspid valvular presence of mild mitral and tricuspid regurgitation, tricuspid regurgitant jet velocity is insufficient for calculation of the right ventricular systolic pressure, diastolic parameters are inconclusive due to presence of atrial fibrillation. CONCLUSION: 1. Biatrial enlargement, normal left ventricular size, mild concentric left ventricular hypertrophy, visually estimated ejection fraction 55% with no obvious regional wall motion abnormality, diastolic parameters are inconclusive. 2. Mildly enlarged right ventricle with normal contractility. 3. Mild mitral and tricuspid regurgitation 4. No significant pericardial effusion noted.
[2017-10-04] VITALS: BP 126/82; PULSE 74; RESP 20; TEMP 36.5; O2SAT 97
--- NOTE | 2017-10-04 03:08 | PC.NURSE ---
no changes noted from previous assessment, pt denies pain at this time, pt states he is SOA with activity and when he talks, intermittent productive cough producing thick white sputum noted, breath sounds are diminished with scattered rhonchi noted to auscultation, pt is on 2L NC and maintaining O2 sats at or above 90, abdomen is firm and tender, bowel sounds are active, vss, no distress noted at this time, call light in reach, will continue to monitor.
[2017-10-04 03:39] VITALS: BP 127/69; PULSE 73; RESP 20; TEMP 36.4; O2SAT 98
--- NOTE | 2017-10-04 07:10 | PC.NURSE ---
report given to Juventino Negro RN
[2017-10-04 07:25] VITALS: BP 115/58; PULSE 92; RESP 20; TEMP 36.5; O2SAT 93
--- NOTE | 2017-10-04 08:17 | HMH.ACPN2 ---
<Alison Graves - Last Filed: 10/04/17 08:17> Internal Medicine - PN: Subj *Date: 10/04/17 *Time: 08:17 Interval history: Patient states he is feeling better today. He denies any pain. He slept well and ate most of his breakfast. He still has a cough and is coughing up sputum. Exam Vital signs and Labs for Last 24 Hours: Temp Pulse Resp BP Pulse Ox 97.7 F 92 H 20 115/58 93 L 10/04/17 07:25 10/04/17 07:25 10/04/17 07:25 10/04/17 07:25 10/04/17 07:25 I & O for Last 24 hours: Intake & Output 10/01/17 10/02/17 10/03/17 10/04/17 11:59 11:59 11:59 11:59 Intake Total 260 / 260 960 / 960 Output Total 240 / 240 1150 / 1150 Balance 20 / -190 / -190 Weight 170 lb 175 lb 7 oz Microbiology Reports for the Last 24 Hours: Microbiology 10/02/17 19:08 Sputum - Expectorated Sputum Gram Stain - Final 10/02/17 19:08 Sputum - Expectorated Sputum Sputum Culture - Preliminary Radiology Reports for the Last 24 Hours: Echo - 1. Biatrial enlargement, normal left ventricular size, mild concentric left ventricular hypertrophy, visually estimated ejection fraction 55% with no obvious regional wall motion abnormality, diastolic parameters are inconclusive. 2. Mildly enlarged right ventricle with normal contractility. 3. Mild mitral and tricuspid regurgitation 4. No significant pericardial effusion noted. - Constitutional no acute distress - *Routine Respiratory Exam Present: rales (bibasilar) - *Routine Cardiovascular Exam Present: RRR - *Routine Abdominal Exam Present: soft, normoactive bowel sounds. Absent: tenderness - *Routine Extremities Exam Present: edema (trace) Assessment and Plan (1) Congestive heart failure Current visit: Yes Status: Acute Qualifiers: Congestive heart failure type: systolic Congestive heart failure chronicity: acute Qualified Code(s): I50.21 - Acute systolic (congestive) heart failure Category: Medical Code(s): I50.9 - Heart failure, unspecified (2) Pneumonia Current visit: Yes Status: Acute Qualifiers: Pneumonia type: due to unspecified organism Laterality: right Lung location: lower lobe of lung Qualified Code(s): J18.1 - Lobar pneumonia, unspecified organism Category: Medical Code(s): J18.9 - Pneumonia, unspecified organism (3) CAD (coronary artery disease) Current visit: No Status: Chronic Category: Medical Code(s): I25.10 - Atherosclerotic heart disease of [place] coronary artery without angina pectoris (4) COPD (chronic obstructive pulmonary disease) Current visit: No Status: Chronic Category: Medical Code(s): J44.9 - Chronic obstructive pulmonary disease, unspecified - Assessment and plan all Dx Assessment and Plan for all problems:: We will continue antibiotics. Echo reviewed. Will await sputum culture. <Colby Quan - Last Filed: 10/04/17 08:23> Internal Medicine - PN: Subj *Date: 10/04/17 *Time: 08:22 Exam Vital signs and Labs for Last 24 Hours: Temp Pulse Resp BP Pulse Ox 97.7 F 92 H 20 115/58 93 L 10/04/17 07:25 10/04/17 07:25 10/04/17 07:25 10/04/17 07:25 10/04/17 07:25 I & O for Last 24 hours: Intake & Output 10/01/17 10/02/17 10/03/17 10/04/17 11:59 11:59 11:59 11:59 Intake Total 260 / 260 960 / 960 Output Total 240 / 240 1150 / 1150 Balance 20 -190 / -190 Weight 170 lb 175 lb 7 oz Microbiology Reports for the Last 24 Hours: Microbiology 10/02/17 19:08 Sputum - Expectorated Sputum Gram Stain - Final 10/02/17 19:08 Sputum - Expectorated Sputum Sputum Culture - Preliminary Assessment and Plan (1) Congestive heart failure Current visit: Yes Status: Acute Qualifiers: Congestive heart failure type: systolic Congestive heart failure chronicity: acute Qualified Code(s): I50.21 - Acute systolic (congestive) heart failure Category: Medical Code(s): I50.9 - Heart failure, unspecifie
--- NOTE | 2017-10-04 08:21 | P.PN_ITS ---
<Alison Graves - Last Filed: 10/04/17 08:17> Internal Medicine - PN: Subj *Date: 10/04/17 *Time: 08:17 Interval history: Patient states he is feeling better today. He denies any pain. He slept well and ate most of his breakfast. He still has a cough and is coughing up sputum. Exam Vital signs and Labs for Last 24 Hours: Temp Pulse Resp BP Pulse Ox 97.7 F 92 H 20 115/58 93 L 10/04/17 07:25 10/04/17 07:25 10/04/17 07:25 10/04/17 07:25 10/04/17 07:25 I & O for Last 24 hours: Intake & Output 10/01/17 10/02/17 10/03/17 10/04/17 11:59 11:59 11:59 11:59 Intake Total 260 / 260 960 / 960 Output Total 240 / 240 1150 / 1150 Balance 20 / -190 / -190 Weight 170 lb 175 lb 7 oz Microbiology Reports for the Last 24 Hours: Microbiology 10/02/17 19:08 Sputum - Expectorated Sputum Gram Stain - Final 10/02/17 19:08 Sputum - Expectorated Sputum Sputum Culture - Preliminary Radiology Reports for the Last 24 Hours: Echo - 1. Biatrial enlargement, normal left ventricular size, mild concentric left ventricular hypertrophy, visually estimated ejection fraction 55% with no obvious regional wall motion abnormality, diastolic parameters are inconclusive. 2. Mildly enlarged right ventricle with normal contractility. 3. Mild mitral and tricuspid regurgitation 4. No significant pericardial effusion noted. - Constitutional no acute distress - *Routine Respiratory Exam Present: rales (bibasilar) - *Routine Cardiovascular Exam Present: RRR - *Routine Abdominal Exam Present: soft, normoactive bowel sounds. Absent: tenderness - *Routine Extremities Exam Present: edema (trace) Assessment and Plan (1) Congestive heart failure Current visit: Yes Status: Acute Qualifiers: Congestive heart failure type: systolic Congestive heart failure chronicity : acute Qualified Code(s): I50.21 - Acute systolic (congestive) heart failure Category: Medical Code(s): I50.9 - Heart failure, unspecified (2) Pneumonia Current visit: Yes Status: Acute Qualifiers: Pneumonia type: due to unspecified organism Laterality: right Lung location: lower lobe of lung Qualified Code(s): J18.1 - Lobar pneumonia, unspecified organism Category: Medical Code(s): J18.9 - Pneumonia, unspecified organism (3) CAD (coronary artery disease) Current visit: No Status: Chronic Category: Medical Code(s): I25.10 - Atherosclerotic heart disease of [place] coronary artery without angina pectoris (4) COPD (chronic obstructive pulmonary disease) Current visit: No Status: Chronic Category: Medical Code(s): J44.9 - Chronic obstructive pulmonary disease, unspecified - Assessment and plan all Dx Assessment and Plan for all problems:: We will continue antibiotics. Echo reviewed. Will await sputum culture. <Colby Quan - Last Filed: 10/04/17 08:23> Internal Medicine - PN: Subj *Date: 10/04/17 *Time: 08:22 Exam Vital signs and Labs for Last 24 Hours: Temp Pulse Resp BP Pulse Ox 97.7 F 92 H 20 115/58 93 L 10/04/17 07:25 10/04/17 07:25 10/04/17 07:25 10/04/17 07:25 10/04/17 07:25 I & O for Last 24 hours: Intake & Output 10/01/17 10/02/17 10/03/17 10/04/17 11:59 11:59 11:59 11:59 Intake Total 260 / 260 960 / 960 Output Total 2
--- NOTE | 2017-10-04 09:20 | HMH.PNCARD ---
Subjective Date: 10/04/17 Time: 09:21 Principal diagnosis: CHF Interval history: No chest pains overnight. Still with cough of frothy, yellowish phlegm. Feeling better overall. Exam Vital signs and Labs for Last 24 Hours: Temp Pulse Resp BP Pulse Ox 97.7 F 92 H 20 115/58 93 L 10/04/17 07:25 10/04/17 07:25 10/04/17 07:25 10/04/17 07:25 10/04/17 07:25 I & O for Last 24 hours: Intake & Output 10/01/17 10/02/17 10/03/17 10/04/17 11:59 11:59 11:59 11:59 Intake Total 260 / 260 960 / 960 Output Total 240 / 240 1150 / 1150 Balance -190 / -190 Weight 170 lb 175 lb 7 oz Microbiology Reports for the Last 24 Hours: Microbiology 10/02/17 19:08 Sputum - Expectorated Sputum Gram Stain - Final 10/02/17 19:08 Sputum - Expectorated Sputum Sputum Culture - Preliminary - *Routine Respiratory Exam Present: rhonchi, diminished air movement. Absent: wheezes - *Routine Cardiovascular Exam Present: RRR. Absent: murmur, gallop Progress Note: A&P (1) Congestive heart failure Status: Acute Assessment and plan: Heart failure with normal LVEF. Echo shows EF of 55% without significant valve disorder. Continue current meds. OK for discharge home from cardiology standpoint. Current Visit: Yes (2) Pneumonia Status: Acute Current Visit: Yes (3) CAD (coronary artery disease) Status: Chronic Assessment and plan: Clinically stable on current meds. Current Visit: No (4) COPD (chronic obstructive pulmonary disease) Status: Chronic Current Visit: No - Time Spent With Patient less than 15 minutes
--- NOTE | 2017-10-07 12:27 | HMH.DCSUM ---
General - General Admission date: 10/02/17 Discharge date: 10/04/17 HPI HPI: Mr. Kim is a 77yo WM with hx Afib, ASCVD with stent, COPD, HTN, CHF, CKD who was recently discharged from [place] after inpatient treatment for CHF. He was brought to the [facility] ED yesterday due to some increasing SOB while at rest at home. Upon evaluation, his BNP was elevated and troponin was normal. CXR showed mild CHF with patchy increased density in both lower lobes suggesting atelectasis or infiltrate/peribronchial inflammatory change. Due to his many comorbid conditions, his case was discussed with Dr. Quan and he was admitted for further evaluation and treatment. He was started on IV antibiotics and furosemide. Hospital Course Hospital Course: He was seen in consultation by cardiology and they ordered an echo. His echo showed an EF of 55% without significant valve disorder. Cardiology recommended continuing his current medications and felt he could be discharged home. He was stable to be discharged home on abx and his regular home medications. He nitish f/u in the office in 2 days. His sputum cx did come back positive for stenotrophamonas maltophilia sensitive only to levaquin and bactrim. Objective Vital signs: Temp Pulse Resp BP Pulse Ox 97.7 F 92 H 20 115/58 93 L 10/04/17 07:25 10/04/17 07:25 10/04/17 07:25 10/04/17 07:25 10/04/17 07:25 Narrative: - Constitutional no acute distress - *Routine HEENT Exam Eye: Present: PERRL, normal accommodation ENT: Present: mucous membranes moist - *Routine Neck Exam Present: supple, full ROM. Absent: lymphadenopathy, tenderness - *Routine Respiratory Exam Comments: diminished bibasilarly with wheezes throughout, productive cough - *Routine Cardiovascular Exam Present: irregularly irregular - *Routine Abdominal Exam Present: soft, normoactive bowel sounds. Absent: tenderness, distended, guarding, rigid, organomegaly, mass - *Routine Extremities Exam Present: full ROM, pulses intact. Absent: edema, calf tenderness - *Routine Skin Exam Present: dry, warm - *Routine Neurological Exam Present: alert, oriented X3, normal speech. Absent: facial asymmetry DS: Diagnosis - Discharge Diagnosis (1) Congestive heart failure Status: Acute (2) Pneumonia Status: Acute Problem details: D/T stenotrophamonas maltophilia (3) CAD (coronary artery disease) Status: Chronic (4) COPD (chronic obstructive pulmonary disease) Status: Chronic Discharge Plan - Patient Discharge Instructions ACTIVITY: Continue current activity DIET: continue same diet Patient Instructions: Pneumonia-Adult, DI for Heart Failure, DI for Pneumonia -- Adult, Lifestyle Habits May Lower Lifetime Risk of Heart Failure in Men - Follow up Plan Follow up with: Colby Quan MD [Primary Care Provider] - 10/06/17 Disposition: Home, Self-[facility] Medications: Home Medications Medication Instructions Recorded Confirmed Type Albuterol Sulfate [Albuterol HFA 1 - 2 puffs IH Q4-6H PRN 09/10/17 10/02/17 History Inhaler] Aspirin [Aspir 81] 81 mg PO DAILY 09/10/17 10/02/17 History Atorvastatin Calcium [Lipitor 80mg 80 mg PO HS 09/10/17 10/03/17 History Tablet] Carvedilol [Carvedilol 25mg Tab] 25 mg PO BID 09/10/17 10/02/17 History Dabigatran Etexilate Mesylate 150 mg PO BID 09/10/17 10/02/17 History [Pradaxa] Esomeprazole Magnesium [Nexium] 40 mg PO DAILY 09/10/17 10/02/17 History Furosemide [Lasix 20mg tablet] 20 mg PO DAILY 09/10/17 10/02/17 History Gabapentin [Gabapentin 300mg Cap] 300 mg PO TID 09/10/17 10/02/17 History Lisinopril [Lisinopril 20mg Tab] 20 mg PO BID 09/10/17 10/02/17 History Tamsulosin HCl [Flomax 0.4mg 0.4 mg PO DAILY 09/10/17 10/02/17 History capsule] Prescriptions/Medication Reconciliation: New Azithromycin [Zithromax 500mg Tab Tri-Phill] 500 mg PO DAILY #3 tab Cefdinir [Omnicef 300mg Capsule
--- NOTE | 2017-10-07 12:32 | P.DS_ITS ---
General - General Admission date: 10/02/17 Discharge date: 10/04/17 HPI HPI: Mr. Kim is a 77yo WM with hx Afib, ASCVD with stent, COPD, HTN, CHF, CKD who was recently discharged from [place] after inpatient treatment for CHF. He was brought to the [facility] ED yesterday due to some increasing SOB while at rest at home. Upon evaluation, his BNP was elevated and troponin was normal. CXR showed mild CHF with patchy increased density in both lower lobes suggesting atelectasis or infiltrate/peribronchial inflammatory change. Due to his many comorbid conditions, his case was discussed with Dr. Quan and he was admitted for further evaluation and treatment. He was started on IV antibiotics and furosemide. Hospital Course Hospital Course: He was seen in consultation by cardiology and they ordered an echo. His echo showed an EF of 55% without significant valve disorder. Cardiology recommended continuing his current medications and felt he could be discharged home. He was stable to be discharged home on abx and his regular home medications. He nitish f/u in the office in 2 days. His sputum cx did come back positive for stenotrophamonas maltophilia sensitive only to levaquin and bactrim. Objective Vital signs: Temp Pulse Resp BP Pulse Ox 97.7 F 92 H 20 115/58 93 L 10/04/17 07:25 10/04/17 07:25 10/04/17 07:25 10/04/17 07:25 10/04/17 07:25 Narrative: - Constitutional no acute distress - *Routine HEENT Exam Eye: Present: PERRL, normal accommodation ENT: Present: mucous membranes moist - *Routine Neck Exam Present: supple, full ROM. Absent: lymphadenopathy, tenderness - *Routine Respiratory Exam Comments: diminished bibasilarly with wheezes throughout, productive cough - *Routine Cardiovascular Exam Present: irregularly irregular - *Routine Abdominal Exam Present: soft, normoactive bowel sounds. Absent: tenderness, distended, guarding, rigid, organomegaly, mass - *Routine Extremities Exam Present: full ROM, pulses intact. Absent: edema, calf tenderness - *Routine Skin Exam Present: dry, warm - *Routine Neurological Exam Present: alert, oriented X3, normal speech. Absent: facial asymmetry DS: Diagnosis - Discharge Diagnosis (1) Congestive heart failure Status: Acute (2) Pneumonia Status: Acute Problem details: D/T stenotrophamonas maltophilia (3) CAD (coronary artery disease) Status: Chronic (4) COPD (chronic obstructive pulmonary disease) Status: Chronic Discharge Plan - Patient Discharge Instructions ACTIVITY: Continue current activity DIET: continue same diet Patient Instructions: Pneumonia-Adult, DI for Heart Failure, DI for Pneumonia - - Adult, Lifestyle Habits May Lower Lifetime Risk of Heart Failure in Men - Follow up Plan Follow up with: Colby Quan MD [Primary Care Provider] - 10/06/17 Disposition: Home, Self-[facility] Medications: Home Medications Medication Instructions Recorded Confirmed Type Albuterol Sulfate [Albuterol HFA 1 - 2 puffs IH Q4-6H PRN 09/10/17 10/02/17 History Inhaler] Aspirin [Aspir 81] 81 mg PO DAILY 09/10/17 10/02/17 History Atorvastatin Calcium [Lipitor 80mg 80 mg PO HS 09/10/17 10/03/17 History Tablet] Carvedilol [Carvedilol 25mg Tab] 25 mg PO BID 09/10/17 10/02/17 History Dabigatran Etexilate Mesylate 150 mg PO BID 09/10/17 10/02/17 History [Pradaxa]
--- NOTE | 2017-10-12 09:47 | P.CONS_ITS ---
History of Present Illness Consult date: 10/03/17 Requesting physician: Colby Quan Consult reason: shortness of breath Chief complaint: SOA Additional Medical History:: 1. CAD A. History of OK and coronary stenting, approximately 1999 2. HTN 3. HLD 4. Tobacco use 5. History of CVA about 2014, no residual 6. History of A. fib, on anticoagulation History of present illness: 77 yo WM with history of CAD, previous OK and coronary stenting with treatment for HTN and hyperlipidemia was admitted yesterday for shortness of breath. Patient denies chest pain. BNP elevated with Chest x-ray revealed evidence of congestive heart failure and infiltrate. Cardiac troponins have returned normal. Pt is feeling better this AM. Previous cardiology workup has been with Dr. Meadows at [facility] in [place] but patient wishes to switch to local care. [facility] History Medical History: Reports:: Arrhythmia, Atherosclerotic Heart Disease, Atrial Fibrillation, Chronic Obstructive Pulmonary Disease (COPD), Coronary Artery Disease, Gastroesophageal Reflux Disease(GERD), Home Oxygen, Hyperlipidemia, Hypertension, Lung Disease, Renal Disease, Ulcer Denies:: Cancer, Diabetes Mellitus Type 1, Diabetes Mellitus Type 2, MRSA Other Surgeries: Yes: Cardiac Catheterization Amputation: No - *Social History Educational Level: Attended Grade School Smoking Status: Former smoker Tobacco Type: cigarettes Smoking End Date: 2002 Alcohol Intake: never Occupational Status: retired Household Members: children - Psychiatric History Expresses thoughts of harming self/others: None Suicide Plan Description: No Plan *Family Hx:: Cancer, Diabetes, Heart Attack, Stroke, Hyperlipidemia, Hypertension Meds Home Medications Medication Instructions Recorded Confirmed Type Albuterol Sulfate [Albuterol HFA 1 - 2 puffs IH Q4-6H PRN 09/10/17 10/02/17 History Inhaler] Aspirin [Aspir 81] 81 mg PO DAILY 09/10/17 10/02/17 History Atorvastatin Calcium [Lipitor 80mg 80 mg PO HS 09/10/17 10/03/17 History Tablet] Carvedilol [Carvedilol 25mg Tab] 25 mg PO BID 09/10/17 10/02/17 History Dabigatran Etexilate Mesylate 150 mg PO BID 09/10/17 10/02/17 History [Pradaxa] Esomeprazole Magnesium [Nexium] 40 mg PO DAILY 09/10/17 10/02/17 History Furosemide [Lasix 20mg tablet] 20 mg PO DAILY 09/10/17 10/02/17 History Gabapentin [Gabapentin 300mg Cap] 300 mg PO TID 09/10/17 10/02/17 History Lisinopril [Lisinopril 20mg Tab] 20 mg PO BID 09/10/17 10/02/17 History Tamsulosin HCl [Flomax 0.4mg 0.4 mg PO DAILY 09/10/17 10/02/17 History capsule] Amlodipine Besylate [Norvasc 2.5mg 2.5 mg PO DAILY 09/11/17 10/02/17 History tablet] Allergies Allergy/AdvReac Type Severity Reaction Status Date / Time No Known Allergies Allergy Verified 10/02/17 12:48 Review of Systems - *Cardiovascular Reports shortness of breath - *Respiratory Reports cough, Reports shortness of breath - *Gastrointestinal Denies abdominal pain Exam Vital signs and Labs for Last 24 Hours: Temp Pulse Resp BP Pulse Ox 98.6 F 89 17 124/59 96 10/03/17 03:44 10/03/17 03:44 10/03/17 03:44 10/03/17 03:44 10/03/17 06:27 I & O for Last 24 hours: Intake & Output 09/30/17 10/01/17 10/02/17 10/03/17 11:59 11:59 11:59 11:59 Intake Total 260 / 260
== END 2017-10-04 12:33 | disposition home or self-care (01) | DRG 177 ==
LOC: ER 17:19 → ICU 17:28 → 2ND 10-04 08:29 → ICU 10-04 10:01
PROVIDERS: Admitting Provider Family Medicine; Emergency Provider Emergency Medicine; Family Provider Family Medicine; PCP Family Medicine; Visit Provider Family Medicine
DX: J15.6 Pneumonia due to other Gram-negative bacteria (principal); I50.21 Acute systolic (congestive) heart failure; J44.9 Chronic obstructive pulmonary disease, unspecified; I48.91 Unspecified atrial fibrillation; I13.0 Hypertensive heart and chronic kidney disease with heart failure and stage 1 through stage 4 chronic kidney disease, or unspecified chronic kidney disease; Z95.5 Presence of coronary angioplasty implant and graft; N18.9 Chronic kidney disease, unspecified; Z87.891 Personal history of nicotine dependence
CPT/HCPCS: 36415; 71046; 80053; 82550; 82553; 83605; 83880; 84484; 85025; 85610; 87040; 87070; 87077; 87186; 87205; 93005; 93306; 94640; 94761; 99283; 99284; J0456

== ENCOUNTER 2017-10-28 20:45 | Observation (INO) ==
--- NOTE | 2017-10-28 21:34 | Emergency Department Note ---
ED Disposition Clinical Impression: Elevated troponin, Renal insufficiency Congestive heart failure Qualifiers: Heart failure type: unspecified Heart failure chronicity: unspecified Qualified Code(s): I50.9 - Heart failure, unspecified COPD (chronic obstructive pulmonary disease) Qualifiers: COPD type: unspecified COPD Qualified Code(s): J44.9 - Chronic obstructive pulmonary disease, unspecified A-fib Qualifiers: Atrial fibrillation type: chronic Qualified Code(s): I48.2 - Chronic atrial fibrillation Disposition: Admitted as Observation Condition on Discharge: Good Referrals: Colby Quan MD [Primary Care Provider] - - Critical Care Critical Care Time: No Attestation: On 10/28/17, the high probability of a clinically significant, sudden or life threatening deterioration of the following system(s) required my full and direct attention, intervention and personal management. The time I documented below is in addition to time spent performing reported procedures but includes the following listed in this critical care notation. Medical Decision Making - Medical Records Medical records reviewed: Yes: I reviewed the patient's medical records. - Han Inquiry Pt receiving controlled substance: No Vital Signs: 10/28/17 20:55 10/28/17 21:14 10/28/17 21:15 Temperature 98.7 F Temperature Source Oral Pulse Rate 88 89 Pulse Rate [Right Radial] 95 H Respiratory Rate 20 Blood Pressure [Right Arm] 101/46 Blood Pressure Mean [Right Arm] 64 Blood Pressure Source [Right Arm] Blood Pressure Position [Right Arm] 02 Sat by Pulse Oximetry 98 Oxygen Delivery Method Nasal Cannula Oxygen Flow Rate (LPM) 4 10/28/17 23:35 Temperature Temperature Source Pulse Rate Pulse Rate [Right Radial] 80 Respiratory Rate 16 Blood Pressure [Right Arm] 130/78 Blood Pressure Mean [Right Arm] 95 Blood Pressure Source [Right Arm] Automatic Cuff Blood Pressure Position [Right Arm] Supine 02 Sat by Pulse Oximetry 95 Oxygen Delivery Method Nasal Cannula Oxygen Flow Rate (LPM) 2 - Lab Data Lab results reviewed: Yes: I reviewed the patient's lab results. Lab Results 10/28/17 21:25: WBC 9.5, RBC 3.99 L, Hgb 12.0 L, Hct 37.5 L, MCV 94.0, MCH 30.0 , MCHC 31.9, RDW 15.4, Plt Count 161, MPV 10.3, Neut % (Auto) 72.4, Lymph % ( Auto) 17.3, [place] % (Auto) 7.6, Eos % (Auto) 2.5, Baso % (Auto) 0.2, Neut # (Auto ) 6.9, Lymph # (Auto) 1.6, [place] # (Auto) 0.7, Eos # (Auto) 0.2, Baso # (Auto) 0.0 10/28/17 21:25: Sodium 141, Potassium 4.3, Chloride 102, Carbon Dioxide 31, Anion Gap 12.3, BUN 19 H, Creatinine 1.41 H, Estimated Creat Clear 50, Estimated GFR 49 L, Est GFR ( Amer) 59, Glucose 149 H, Calcium 8.5, Total Bilirubin 1.3 H, AST 25, ALT 24, Alkaline Phosphatase 103, Total Creatine Kinase 120, CK-MB (CK-2) 1.6, CK-MB (CK-2) Rel Index 1.3, Troponin I 0.12 H, Total Protein 7.6, Albumin 3.5, Globulin 4.1 H, Albumin/Globulin Ratio 0.9 L 10/28/17 21:25: Lactic Acid 1.7 10/28/17 21:25: B-Natriuretic Peptide 349 H 10/28/17 21:32: Influenza Type A Ag Negative, Influenza Type B Ag Negative 10/28/17 23:45: Troponin I < 0.02 Result diagrams: 10/28/17 21:25 10/28/17 21:25 Orders (Tests/Meds): ED MEDICATIONS Discontinued Medications Generic Name Dose Route Start Last Admin Trade Name Freq PRN Reason Stop Dose Admin Aspirin 243 mg 10/28/17 23:25 10/28/17 23:28 Aspirin 81mg Enteric Coated Tablet PO 10/28/17 23:26 243 mg ONCE ONE Administration Furosemide 40 mg 10/28/17 23:12 10/28/17 23:29 Lasix 40mg/4ml Vial IV 10/28/17 23:13 40 mg ONCE ONE Administration ORDERS Category Date Time Status XR chest 2V Stat Exams 10/28/17 21:02 Taken Blood Culture Stat Micro 10/28/17 21:25 Received Sputum Culture & Gram Stain Stat Micro 10/28/17 21:02 Ordered - Radiology Data #1 Image(s): Chest Image Reviewed: Yes I reviewed the patient's radiology image Preliminary Findings: Abnormal (chf) - ECG Data Tracing #1 I reviewed this ECG and interpreted as documented below: Arrhythmias present: afib Ischemic changes: non-specific ST-T wave changes - Physician Consults Physician Consulted: sirena Reason -: Pt condition Additional Consult: atif Reason -: Pt condition Additional Consult: rosemary Reason -: Transfer to another facilty Resp/SOB HPI - General Chief Complaint: Shortness of Breath/Dyspnea Stated Complaint: cough,dizzy,weakness Time Seen by Provider: 10/28/17 21:05 Mode of Arrival: Family Vehicle Source of Information: Patient, Relative, Medical Record Limitations: No Limitations Description of Symptoms (Recalled from ER Triage Doc. by RN): shortness of breath, weakness, productive cough - History of Present Illness pt and family state that pt has inc sob with weakness but no chest pain - pt with hx of cad with last stents about 4 yrs ago and no recent card eval or echo reported- MD Complaint: shortness of breath Onset (ago): day(s) Severity: moderate Known history of: COPD Treatment prior to arrival: none - Related Data Home oxygen amount: 3 liters Home Medications Medication Instructions Recorded Confirmed Albuterol Sulfate [Albuterol HFA 1 - 2 puffs IH Q4-6H PRN 09/10/17 10/28/17 Inhaler] Aspirin [Aspir 81] 81 mg PO DAILY 09/10/17 10/28/17 Atorvastatin Calcium [Lipitor 80mg 80 mg PO HS 09/10/17 10/28/17 Tablet] Carvedilol [Carvedilol 25mg Tab] 25 mg PO BID 09/10/17 10/28/17 Dabigatran Etexilate Mesylate 150 mg PO BID 09/10/17 10/28/17 [Pradaxa] Esomeprazole Magnesium [Nexium] 40 mg PO DAILY 09/10/17 10/28/17 Furosemide [Lasix 20mg tablet] 20 mg PO DAILY 09/10/17 10/28/17 Gabapentin [Gabapentin 300mg Cap] 300 mg PO TID 09/10/17 10/28/17 Lisinopril [Lisinopril 20mg Tab] 20 mg PO BID 09/10/17 10/28/17 Tamsulosin HCl [Flomax 0.4mg 0.4 mg PO DAILY 09/10/17 10/28/17 capsule] Finasteride [Proscar] 5 mg PO DAILY 10/28/17 10/28/17 Allergies Allergy/AdvReac Type Severity Reaction Status Date / Time Penicillins Allergy Verified 10/28/17 21:01 [facility] History I have reviewed the patient's past medical history: Yes Medical History: Reports:: Arrhythmia, Atherosclerotic Heart Disease, Atrial Fibrillation, Congestive Heart Failure, Chronic Obstructive Pulmonary Disease ( COPD), Coronary Artery Disease, Gastroesophageal Reflux Disease(GERD), Home Oxygen, Hyperlipidemia, Hypertension, Lung Disease, Renal Disease, Ulcer Denies:: Cancer, Diabetes Mellitus Type 1, Diabetes Mellitus Type 2, Hepatitis, MRSA, Seizures, Transient Ischemic Attacks (TIA) Other Medical History: Denies: Hypothyroidism, Thyroid Disease Comment: Metabolic encephalopathy Other Surgeries: Yes: Cardiac Catheterization Amputation: No Comment: stents in both legs, stent in heart - Social History Smoking Status: Former smoker Tobacco Type: cigarettes Alcohol Intake: never Alcohol Intake Frequency:: a few times a month Substance Use Type: denies use Occupational Status: retired Household Members: children - Psychiatric History Expresses thoughts of harming self/others: None Suicide Plan Description: No Plan Family Hx:: Cancer, Diabetes, Heart Attack, Stroke, Hyperlipidemia, Hypertension ROS Obtained: Yes All systems reviewed & no additional complaints - Constitutional Constitutional: Denies fever(s) - Eyes Eyes: Denies change in vision - ENT Ears, Nose, Mouth, and Throat: Denies sore throat - Cardiovascular Cardiovascular: Denies chest pain, Reports dyspnea, Reports shortness of breath when lying down, Denies palpitations - Respiratory Respiratory: No cough, Yes dyspnea, No coughing up blood - Gastrointestinal Gastrointestingal: Denies: abdominal pain - Musculoskeletal Musculoskeletal: Denies joint pain - Integumentary/Breasts Skin/Breast: Denies rash - Neurologic Neurologic: Denies seizure-like activity Physical Exam - General General appearance: alert - Head Head exam: normocephalic - Eye Eye exam: Present: PERRL, EOMI. Absent: scleral icterus - ENT ENT exam: Present: mucous membranes dry - Neck Neck exam: Present: trachea midline - Respiratory Respiratory exam: Present: other (bilat rhonchi). Absent: respiratory distress - Cardiovascular Cardiovascular exam: Present: irregular rhythm, systolic murmur, +S4 - Abdominal Exam Abdominal exam: Present: soft - Extremities Exam Extremities exam: Present: pedal edema. Absent: calf tenderness - Neurological Exam Neurological exam: Present: alert, oriented X3, CN II-XII intact - Skin Skin exam: Absent: rash
[2017-10-28 21:41] LABS: Basophils % 0.2 % (0.1-2.0); Eosinophils # 0.2 K/mm3 (0.0-0.4); Eosinophils % 2.5 % (0.1-12.0); Hematocrit 37.5 % (42.0-52.0); Lymphocytes # 1.6 K/mm3 (0.7-4.5); Lymphocytes % 17.3 K/mm3 (10-50); Mean Corpuscular HGB Conc 31.9 g/dL (31.8-35.4); Mean Platelet Volume 10.3 fl (7.4-10.4); Monocytes # 0.7 K/mm3 (0.1-1.0); Monocytes % 7.6 % (1.7-9.3); Neutrophils # 6.9 K/mm3 (1.8-7.8); Neutrophils % 72.4 % (37.0-80.0); Platelet Count 161 K/mm3 (142-424); Red Blood Count 3.99 M/mm3 (4.60-6.20); Red Cell Distribution Width 15.4 % (11.5-17.5); White Blood Count 9.5 K/mm3 (4.8-10.8)
[2017-10-28 22:01] LABS: Albumin Level 3.5 gm/dL (3.4-5.0); Albumin/Globulin Ratio 0.9 (1.1-1.8); Anion Gap 12.3 mEq/L (5-15); Bilirubin,Total 1.3 mg/dL (0.2-1.0); Calcium 8.5 mg/dL (8.5-10.1); Globulin 4.1 gm/dl (1.3-3.2); Potassium 4.3 mmoL/L (3.5-5.1); Total Protein,Serum 7.6 gm/dL (6.4-8.2)
[2017-10-29 07:13] LABS: Basophils % 0.6 % (0.1-2.0); Eosinophils # 0.1 K/mm3 (0.0-0.4); Eosinophils % 2.1 % (0.1-12.0); Hematocrit 42.8 % (42.0-52.0); Hemoglobin 13.1 g/dL (14.1-18.0); Lymphocytes # 1.1 K/mm3 (0.7-4.5); Lymphocytes % 17.1 K/mm3 (10-50); Mean Corpuscular HGB Conc 30.6 g/dL (31.8-35.4); Mean Corpuscular Hemoglobin 30.6 pg (27.0-31.2); Mean Platelet Volume 10.4 fl (7.4-10.4); Monocytes # 0.5 K/mm3 (0.1-1.0); Monocytes % 8.3 % (1.7-9.3); Neutrophils # 4.5 K/mm3 (1.8-7.8); Neutrophils % 71.9 % (37.0-80.0); Platelet Count 137 K/mm3 (142-424); Red Blood Count 4.28 M/mm3 (4.60-6.20); Red Cell Distribution Width 15.2 % (11.5-17.5); White Blood Count 6.3 K/mm3 (4.8-10.8)
[2017-10-29 07:38] LABS: Anion Gap 12.9 mEq/L (5-15); Blood Urea Nitrogen 19 mg/dL (7-18); Carbon Dioxide 30 mmol/L (21.0-32.0); Chloride 100 mmol/L (98-107); Chol/HDL Ratio 5.1 (1-3.5); Cholesterol 163 mg/dL (140-200); Glucose 142 mg/dL (74-106); HDL Cholesterol 32 mg/dL (27-67); LDL Cholesterol 82 mg/dL (0-130); Sodium 139 mmol/L (136-145); Triglycerides 247 mg/dL (30-200); VLDL Cholesterol 49 mg/dL (0-40)
[2017-10-29 07:40] LABS: Potassium 3.9 mmoL/L (3.5-5.1)
--- NOTE | 2017-10-29 08:08 | H&P/Discharge Summary ---
General - General Admission date: 10/28/17 Discharge date: 10/29/17 *Admission Date: 10/28/17 *Chief complaint: Shortness of breath *History of present illness: 77 year old male with an extensive medical history, with several recent admissions for respiratory illnesses, Pneumonia and COPD exacerbation. Patient presented to [facility] ER last night with a 2 day history of shortness of breath with progressive weakness. He did not have much cough or wheezing. He denied fever and chills and any sick contacts. Work up in the ER revealed a borderline troponin I, elevated BNP and CXR consistent with CHF. Cardiology and the hospitalist at [facility] in [place] were contacted and accepted the patient in transfer but no beds were available. Therefore, patient was admitted here at [facility] with plans for transfer in the morning. [facility] History Medical History: Reports:: Arrhythmia, Atherosclerotic Heart Disease, Atrial Fibrillation, Congestive Heart Failure, Chronic Obstructive Pulmonary Disease ( COPD), Coronary Artery Disease, Gall Bladder Disease, Gastroesophageal Reflux Disease(GERD), Home Oxygen, Hyperlipidemia, Hypertension, Lung Disease, Peripheral Artery Disease, Renal Disease, Ulcer Denies:: Cancer, Diabetes Mellitus Type 1, Diabetes Mellitus Type 2, Hepatitis, MRSA, Seizures, Transient Ischemic Attacks (TIA) Other Medical History: Reports: Cataracts. Denies: Hypothyroidism, Thyroid Disease Laterality Cases: Bilateral: Cataract, Myringotomy (Ear Tubes) Other Surgeries: Yes: Cardiac Catheterization, Other (cholecystectomy, renal artery stents) Amputation: No Fractures: No - *Social History Educational Level: Attended Grade School Smoking Status: Former smoker Tobacco Type: cigarettes Alcohol Intake: never Alcohol Intake Frequency:: a few times a month Substance Use Type: denies use Occupational Status: retired Household Members: children - Psychiatric History Expresses thoughts of harming self/others: None Suicide Plan Description: No Plan *Family Hx:: Cancer, Diabetes, Heart Attack, Stroke, Hyperlipidemia, Hypertension Review of Systems - Constitutional Denies chills - Eyes Denies change in vision - ENT Denies difficulty swallowing - *Cardiovascular Denies chest pain - *Respiratory Reports shortness of breath, Denies cough - *Gastrointestinal Denies abdominal pain - *Genitourinary Denies difficulty urinating - *Musculoskeletal Denies joint pain - *Neurologic Denies seizure-like activity, Denies tremor(s) Exam Vital signs and Labs for Last 24 Hours: Temp Pulse Resp BP Pulse Ox 98.5 F 86 18 114/49 91 L 10/29/17 07:57 10/29/17 07:57 10/29/17 07:57 10/29/17 07:57 10/29/17 07:57 Vital Signs Temp Pulse Pulse Resp BP BP Pulse Ox 10/29/17 07:57 98.5 F 86 18 114/49 91 L 10/29/17 06:46 87 10/29/17 04:00 98.3 F 67 20 121/57 94 L 10/29/17 01:15 97.6 F 75 24 118/59 97 10/29/17 00:29 98.7 F 87 20 110/74 10/29/17 00:21 85 18 114/43 96 10/28/17 23:35 80 16 130/78 95 10/28/17 21:15 89 10/28/17 21:14 88 10/28/17 20:55 98.7 F 95 H 20 101/46 98 Intake and Output 10/28/17 10/29/17 10/29/17 19:59 03:59 11:59 Intake Total 591 / 591 Output Total 1700 / 1700 Balance -1109 / -1109 Intake: Intake, Oral Amount 360 / 360 Intake, Other Amount 231 / 231 Output: Output, Urine Amount 1700 / 1700 Other: Number of Voids 1 Number of Bowel Movements 0 Weight 172 lb 5 oz Patient Weight 10/29/17 11:59 Weight 172 lb 5 oz I & O for Last 24 hours: Intake & Output 10/26/17 10/27/17 10/28/17 10/29/17 11:59 11:59 11:59 11:59 Intake Total 591 / 591 Output Total 1700 / 1700 Balance -1109 / -1109 Weight 172 lb 5 oz Microbiology Reports for the Last 24 Hours: Microbiology 10/29/17 01:05 Sputum - Expectorated Sputum Gram Stain - Final - *Routine HEENT Exam Head: Present: normocephalic, atraumatic ENT: Present: mucous membranes moist - *Routine Neck Exam Present: supple - *Routine Respiratory Exam Present: diminished air movement (in bases, rare wheeze and crackles) - *Routine Cardiovascular Exam Present: irregularly irregular - *Routine Abdominal Exam Present: soft, normoactive bowel sounds. Absent: tenderness - *Routine Extremities Exam Absent: cyanosis, clubbing, edema Hospital Course Hospital Course: Patient was admitted due to lack of beds at [facility] with the working diagnosis of CHF, he had no new problems overnight, will plan for transfer today. Results Labs on day of discharge: Labs from last 24 hours 10/29/17 10/29/17 06:30 06:30 WBC 6.3 D RBC 4.28 L Hgb 13.1 L Hct 42.8 MCV 100.0 H MCH 30.6 MCHC 30.6 L RDW 15.2 Plt Count 137 L MPV 10.4 Neut % (Auto) 71.9 Lymph % (Auto) 17.1 [place] % (Auto) 8.3 Eos % (Auto) 2.1 Baso % (Auto) 0.6 Neut # (Auto) 4.5 Lymph # (Auto) 1.1 [place] # (Auto) 0.5 Eos # (Auto) 0.1 Baso # (Auto) 0.0 Sodium 139 Potassium 3.9 Chloride 100 Carbon Dioxide 30 Anion Gap 12.9 BUN 19 H Creatinine 1.35 H Estimated Creat Clear 50 Estimated GFR 51 L Est GFR ( Amer) 62 Glucose 142 H Troponin I < 0.02 Triglycerides 247 H Cholesterol 163 LDL Cholesterol 82 VLDL Cholesterol 49 H HDL Cholesterol 32 Cholesterol/HDL Ratio 5.1 H Laboratory Results - last 24 hr 10/28/17 21:25: WBC 9.5, RBC 3.99 L, Hgb 12.0 L, Hct 37.5 L, MCV 94.0, MCH 30.0 , MCHC 31.9, RDW 15.4, Plt Count 161, MPV 10.3, Neut % (Auto) 72.4, Lymph % ( Auto) 17.3, [place] % (Auto) 7.6, Eos % (Auto) 2.5, Baso % (Auto) 0.2, Neut # (Auto ) 6.9, Lymph # (Auto) 1.6, [place] # (Auto) 0.7, Eos # (Auto) 0.2, Baso # (Auto) 0.0 10/28/17 21:25: Sodium 141, Potassium 4.3, Chloride 102, Carbon Dioxide 31, Anion Gap 12.3, BUN 19 H, Creatinine 1.41 H, Estimated Creat Clear 50, Estimated GFR 49 L, Est GFR ( Amer) 59, Glucose 149 H, Calcium 8.5, Total Bilirubin 1.3 H, AST 25, ALT 24, Alkaline Phosphatase 103, Total Creatine Kinase 120, CK-MB (CK-2) 1.6, CK-MB (CK-2) Rel Index 1.3, Troponin I 0.12 H, Total Protein 7.6, Albumin 3.5, Globulin 4.1 H, Albumin/Globulin Ratio 0.9 L 10/28/17 21:25: Lactic Acid 1.7 10/28/17 21:25: B-Natriuretic Peptide 349 H 10/28/17 21:32: Influenza Type A Ag Negative, Influenza Type B Ag Negative 10/28/17 23:45: Troponin I < 0.02 10/29/17 06:30: WBC 6.3 D, RBC 4.28 L, Hgb 13.1 L, Hct 42.8, MCV 100.0 H, MCH 30.6, MCHC 30.6 L, RDW 15.2, Plt Count 137 L, MPV 10.4, Neut % (Auto) 71.9, Lymph % (Auto) 17.1, [place] % (Auto) 8.3, Eos % (Auto) 2.1, Baso % (Auto) 0.6, Neut # (Auto) 4.5, Lymph # (Auto) 1.1, [place] # (Auto) 0.5, Eos # (Auto) 0.1, Baso # (Auto) 0.0 10/29/17 06:30: Sodium 139, Potassium 3.9, Chloride 100, Carbon Dioxide 30, Anion Gap 12.9, BUN 19 H, Creatinine 1.35 H, Estimated Creat Clear 50, Estimated GFR 51 L, Est GFR ( Amer) 62, Glucose 142 H, Troponin I < 0.02 , Triglycerides 247 H, Cholesterol 163, LDL Cholesterol 82, VLDL Cholesterol 49 H, HDL Cholesterol 32, Cholesterol/HDL Ratio 5.1 H - Imaging and Cardiology Chest x-ray Status: Preliminary report (CHF) DS: Diagnosis - Discharge Diagnosis (1) Congestive heart failure Status: Acute (2) A-fib Status: Acute (3) Elevated troponin Status: Acute (4) Renal insufficiency Status: Acute (5) COPD (chronic obstructive pulmonary disease) Status: Chronic (6) Atelectasis of both lungs Status: Acute (7) CAD (coronary artery disease) Status: Chronic Discharge Medications Discharge Medications: Home Medications Medication Instructions Recorded Confirmed Type Albuterol Sulfate [Albuterol HFA 1 - 2 puffs IH Q4-6H PRN 09/10/17 10/29/17 History Inhaler] Aspirin [Aspir 81] 81 mg PO DAILY 09/10/17 10/29/17 History Atorvastatin Calcium [Lipitor 80mg 80 mg PO HS 09/10/17 10/29/17 History Tablet] Carvedilol [Carvedilol 25mg Tab] 25 mg PO BID 09/10/17 10/29/17 History Dabigatran Etexilate Mesylate 150 mg PO BID 09/10/17 10/29/17 History [Pradaxa] Esomeprazole Magnesium [Nexium] 40 mg PO DAILY 09/10/17 10/29/17 History Furosemide [Lasix 20mg tablet] 20 mg PO DAILY 09/10/17 10/29/17 History Gabapentin [Gabapentin 300mg Cap] 300 mg PO TID 09/10/17 10/29/17 History Lisinopril [Lisinopril 20mg Tab] 20 mg PO BID 09/10/17 10/29/17 History Tamsulosin HCl [Flomax 0.4mg 0.4 mg PO DAILY 09/10/17 10/29/17 History capsule] Finasteride [Proscar] 5 mg PO DAILY 10/28/17 10/29/17 History Disposition Disposition: Xfer Short-Term Hosp
--- NOTE | 2017-10-30 08:01 | Progress Note ---
<Ana Garcia - Last Filed: 10/30/17 07:58> Internal Medicine - PN: Subj *Date: 10/30/17 *Time: 07:58 Interval history: States he is feeling better. He was able to sleep well. He thinks his breathing is better. He has some chest pain relieved by breathing treatment. He ate well for breakfast. He awaits bed availability at [facility] in [place]. Exam Vital signs and Labs for Last 24 Hours: Temp Pulse Resp BP Pulse Ox 98.3 F 77 20 124/65 98 10/30/17 07:25 10/30/17 07:25 10/30/17 07:25 10/30/17 07:25 10/30/17 07:25 I & O for Last 24 hours: Intake & Output 10/27/17 10/28/17 10/29/17 10/30/17 11:59 11:59 11:59 11:59 Intake Total 591 / 591 2499 / 2499 Output Total 1700 / 1700 600 / 600 Balance -1109 / -1109 1899 / 1899 Weight 172 lb 5 oz 174 lb 2 oz Microbiology Reports for the Last 24 Hours: Microbiology 10/29/17 01:05 Sputum - Expectorated Sputum Gram Stain - Final 10/29/17 01:05 Sputum - Expectorated Sputum Sputum Culture - Preliminary Gram Negative Rods - Constitutional no acute distress Comments: Sitting in comfort chair at bedside. Appears comfortable. - *Routine Respiratory Exam Comments: Bilateral wheezing. - *Routine Cardiovascular Exam Present: RRR - *Routine Abdominal Exam Present: soft, normoactive bowel sounds. Absent: tenderness - *Routine Extremities Exam Absent: edema, calf tenderness - *Routine Neurological Exam Present: alert, oriented X3 Assessment and Plan (1) Congestive heart failure Current visit: Yes Status: Acute Qualifiers: Heart failure type: unspecified Heart failure chronicity: unspecified Qualified Code(s): I50.9 - Heart failure, unspecified Category: Medical Code(s): I50.9 - Heart failure, unspecified (2) A-fib Current visit: Yes Status: Acute Qualifiers: Atrial fibrillation type: chronic Qualified Code(s): I48.2 - Chronic atrial fibrillation Category: Medical Code(s): I48.91 - Unspecified atrial fibrillation (3) Elevated troponin Current visit: Yes Status: Acute Category: Medical Code(s): R74.8 - Abnormal levels of other serum enzymes (4) Renal insufficiency Current visit: Yes Status: Acute Category: Medical Code(s): N28.9 - Disorder of kidney and ureter, unspecified (5) COPD (chronic obstructive pulmonary disease) Current visit: Yes Status: Chronic Qualifiers: COPD type: unspecified COPD Qualified Code(s): J44.9 - Chronic obstructive pulmonary disease, unspecified Category: Medical Code(s): J44.9 - Chronic obstructive pulmonary disease, unspecified (6) Atelectasis of both lungs Current visit: No Status: Acute Category: Medical Code(s): J98.11 - Atelectasis (7) CAD (coronary artery disease) Current visit: No Status: Chronic Category: Medical Code(s): I25.10 - Atherosclerotic heart disease of [place] coronary artery without angina pectoris - Assessment and plan all Dx Assessment and Plan for all problems:: To be transferred to [facility] when bed available. <Colby Quan - Last Filed: 10/30/17 08:54> Internal Medicine - PN: Subj *Date: 10/30/17 *Time: 08:54 Exam Vital signs and Labs for Last 24 Hours: Temp Pulse Resp BP Pulse Ox 98.3 F 77 20 124/65 98 10/30/17 07:25 10/30/17 07:25 10/30/17 07:25 10/30/17 07:25 10/30/17 07:25 I & O for Last 24 hours: Intake & Output 10/27/17 10/28/17 10/29/17 10/30/17 11:59 11:59 11:59 11:59 Intake Total 591 / 591 2499 / 2499 Output Total 1700 / 1700 600 / 600 Balance -1109 / -1109 1899 / 1899 Weight 172 lb 5 oz 174 lb 2 oz Microbiology Reports for the Last 24 Hours: Microbiology 10/29/17 01:05 Sputum - Expectorated Sputum Gram Stain - Final 10/29/17 01:05 Sputum - Expectorated Sputum Sputum Culture - Preliminary Gram Negative Rods Assessment and Plan (1) Congestive heart failure Current visit: Yes Status: Acute Qualifiers: Heart failure type: unspecified Heart failure chronicity: unspecified Qualified Code(s): I50.9 - Heart failure, unspecified Category: Medical Code(s): I50.9 - Heart failure, unspecified (2) A-fib Current visit: Yes Status: Acute Qualifiers: Atrial fibrillation type: chronic Qualified Code(s): I48.2 - Chronic atrial fibrillation Category: Medical Code(s): I48.91 - Unspecified atrial fibrillation (3) Elevated troponin Current visit: Yes Status: Acute Category: Medical Code(s): R74.8 - Abnormal levels of other serum enzymes (4) Renal insufficiency Current visit: Yes Status: Acute Category: Medical Code(s): N28.9 - Disorder of kidney and ureter, unspecified (5) COPD (chronic obstructive pulmonary disease) Current visit: Yes Status: Chronic Qualifiers: COPD type: unspecified COPD Qualified Code(s): J44.9 - Chronic obstructive pulmonary disease, unspecified Category: Medical Code(s): J44.9 - Chronic obstructive pulmonary disease, unspecified (6) Atelectasis of both lungs Current visit: No Status: Acute Category: Medical Code(s): J98.11 - Atelectasis (7) CAD (coronary artery disease) Current visit: No Status: Chronic Category: Medical Code(s): I25.10 - Atherosclerotic heart disease of [place] coronary artery without angina pectoris - Assessment and plan all Dx Assessment and Plan for all problems:: Saw patient, agree with above note.
[2017-10-31 08:05] VITALS: BP 155/52
--- NOTE | 2017-10-31 08:06 | Progress Note ---
<Ana Garcia - Last Filed: 10/31/17 08:03> Internal Medicine - PN: Subj *Date: 10/31/17 *Time: 08:03 Interval history: Continues to await bed at [facility]. He describes chest pain with ambulation. He states that pain does not last very long. He is also short of breath with any activity. He continues to wheeze. He is eating without difficulty. He did sleep some last night. Exam Vital signs and Labs for Last 24 Hours: Temp Pulse Resp BP Pulse Ox 98.0 F 72 24 149/68 94 L 10/31/17 03:51 10/31/17 03:51 10/31/17 03:51 10/31/17 03:51 10/31/17 03:51 I & O for Last 24 hours: Intake & Output 10/28/17 10/29/17 10/30/17 10/31/17 11:59 11:59 11:59 11:59 Intake Total 591 / 591 3819 / 3819 2190 / 2190 Output Total 1700 / 1700 1700 / 1700 400 / 400 Balance -1109 / -1109 2119 / 2119 1790 / 1790 Weight 172 lb 5 oz 174 lb 2 oz 178 lb 7.991 oz Microbiology Reports for the Last 24 Hours: Microbiology 10/29/17 01:05 Sputum - Expectorated Sputum Gram Stain - Final 10/29/17 01:05 Sputum - Expectorated Sputum Sputum Culture - Preliminary Enterobact cloac comp - Constitutional no acute distress Comments: Sitting in chair at bedside eating his breakfast. Appears comfortable and denies chest pain - *Routine Respiratory Exam Comments: Expiratory wheezing throughout. - *Routine Cardiovascular Exam Present: RRR - *Routine Abdominal Exam Present: soft, normoactive bowel sounds. Absent: tenderness - *Routine Extremities Exam Absent: edema, calf tenderness - *Routine Neurological Exam Present: alert, oriented X3 Assessment and Plan (1) Congestive heart failure Current visit: Yes Status: Acute Qualifiers: Heart failure type: unspecified Heart failure chronicity: unspecified Qualified Code(s): I50.9 - Heart failure, unspecified Category: Medical Code(s): I50.9 - Heart failure, unspecified (2) A-fib Current visit: Yes Status: Acute Qualifiers: Atrial fibrillation type: chronic Qualified Code(s): I48.2 - Chronic atrial fibrillation Category: Medical Code(s): I48.91 - Unspecified atrial fibrillation (3) Elevated troponin Current visit: Yes Status: Acute Category: Medical Code(s): R74.8 - Abnormal levels of other serum enzymes (4) Renal insufficiency Current visit: Yes Status: Acute Category: Medical Code(s): N28.9 - Disorder of kidney and ureter, unspecified (5) COPD (chronic obstructive pulmonary disease) Current visit: Yes Status: Chronic Qualifiers: COPD type: unspecified COPD Qualified Code(s): J44.9 - Chronic obstructive pulmonary disease, unspecified Category: Medical Code(s): J44.9 - Chronic obstructive pulmonary disease, unspecified (6) Atelectasis of both lungs Current visit: No Status: Acute Category: Medical Code(s): J98.11 - Atelectasis (7) CAD (coronary artery disease) Current visit: No Status: Chronic Category: Medical Code(s): I25.10 - Atherosclerotic heart disease of [place] coronary artery without angina pectoris - Assessment and plan all Dx Assessment and Plan for all problems:: To be transferred to [facility] when bed is available. <Colby Quan - Last Filed: 10/31/17 08:45> Internal Medicine - PN: Subj *Date: 10/31/17 *Time: 08:45 Exam Vital signs and Labs for Last 24 Hours: Temp Pulse Resp BP Pulse Ox 98.0 F 76 20 155/52 98 10/31/17 08:00 10/31/17 08:00 10/31/17 08:00 10/31/17 08:00 10/31/17 08:00 I & O for Last 24 hours: Intake & Output 10/28/17 10/29/17 10/30/17 10/31/17 11:59 11:59 11:59 11:59 Intake Total 591 / 591 3819 / 3819 2670 / 2670 Output Total 1700 / 1700 1700 / 1700 400 / 400 Balance -1109 / -1109 2119 / 2119 2270 / 2270 Weight 172 lb 5 oz 174 lb 2 oz 178 lb 7.991 oz Microbiology Reports for the Last 24 Hours: Microbiology 10/29/17 01:05 Sputum - Expectorated Sputum Gram Stain - Final 10/29/17 01:05 Sputum - Expectorated Sputum Sputum Culture - Final Enterobact cloac comp Assessment and Plan (1) Congestive heart failure Current visit: Yes Status: Acute Qualifiers: Heart failure type: unspecified Heart failure chronicity: unspecified Qualified Code(s): I50.9 - Heart failure, unspecified Category: Medical Code(s): I50.9 - Heart failure, unspecified (2) A-fib Current visit: Yes Status: Acute Qualifiers: Atrial fibrillation type: chronic Qualified Code(s): I48.2 - Chronic atrial fibrillation Category: Medical Code(s): I48.91 - Unspecified atrial fibrillation (3) Elevated troponin Current visit: Yes Status: Acute Category: Medical Code(s): R74.8 - Abnormal levels of other serum enzymes (4) Renal insufficiency Current visit: Yes Status: Acute Category: Medical Code(s): N28.9 - Disorder of kidney and ureter, unspecified (5) COPD (chronic obstructive pulmonary disease) Current visit: Yes Status: Chronic Qualifiers: COPD type: unspecified COPD Qualified Code(s): J44.9 - Chronic obstructive pulmonary disease, unspecified Category: Medical Code(s): J44.9 - Chronic obstructive pulmonary disease, unspecified (6) Atelectasis of both lungs Current visit: No Status: Acute Category: Medical Code(s): J98.11 - Atelectasis (7) CAD (coronary artery disease) Current visit: No Status: Chronic Category: Medical Code(s): I25.10 - Atherosclerotic heart disease of [place] coronary artery without angina pectoris - Assessment and plan all Dx Assessment and Plan for all problems:: Saw patient, agree with above note, will increase Lasix dose today, saline lock IVF.
--- NOTE | 2017-11-01 12:45 | Discharge Summary ---
General - General Admission date: 10/28/17 Discharge date: 10/31/17 HPI HPI: 77 year old male with an extensive medical history, with several recent admissions for respiratory illnesses, Pneumonia and COPD exacerbation. Patient presented to [facility] ER last night with a 2 day history of shortness of breath with progressive weakness. He did not have much cough or wheezing. He denied fever and chills and any sick contacts. Work up in the ER revealed a borderline troponin I, elevated BNP and CXR consistent with CHF. Cardiology and the hospitalist at [facility] in [place] were contacted and accepted the patient in transfer but no beds were available. Therefore, patient was admitted here at [facility] with plans for transfer in the morning. Hospital Course Hospital Course: The patient stayed at [facility] for 2 days awaiting a bed at [place]. He had some chest pain relieved by breathing treatments. He ate well. He did get SOA with activity and had some CP with activity, therefore his lasix dose was increased. A bed became available and he was transferred to [facility]. Objective Vital signs: Temp Pulse Resp BP Pulse Ox 98.0 F 75 20 155/52 99 10/31/17 08:00 10/31/17 13:01 10/31/17 08:00 10/31/17 08:00 10/31/17 13:01 Narrative: - *Routine HEENT Exam Head: Present: normocephalic, atraumatic ENT: Present: mucous membranes moist - *Routine Neck Exam Present: supple - *Routine Respiratory Exam Present: diminished air movement (in bases, rare wheeze and crackles) - *Routine Cardiovascular Exam Present: irregularly irregular - *Routine Abdominal Exam Present: soft, normoactive bowel sounds. Absent: tenderness - *Routine Extremities Exam Absent: cyanosis, clubbing, edema DS: Diagnosis - Discharge Diagnosis (1) A-fib Status: Acute (2) Atelectasis of both lungs Status: Acute (3) COPD exacerbation Status: Acute (4) Chest pain Status: Acute (5) Congestive heart failure Status: Acute (6) Elevated troponin Status: Acute (7) Renal insufficiency Status: Acute (8) CAD (coronary artery disease) Status: Chronic (9) COPD (chronic obstructive pulmonary disease) Status: Chronic Discharge Plan - Patient Discharge Instructions ACTIVITY: Continue current activity DIET: continue same diet Additional Instructions: Accepting Doctor's at [facility] are Dr. Redding (Cardiology) and Dr. Israel (sp?) ( Hospitalist). Patient Instructions: Congestive Heart Failure (Alternative Therapy), Pneumonia -Adult, Kidney Failure, Chronic Obstructive Pulmonary Disease, Coronary Artery Disease, Atrial Fibrillation, Atelectasis, DI for Heart Failure, DI for Chest Pain Forms: Transfer Record - Follow up Plan Follow up with: Colby Quan MD [Primary Care Provider] - 2 weeks Disposition: Xfer Short-Term Hosp Home Medications: Home Medications Medication Instructions Recorded Confirmed Type Albuterol Sulfate [Albuterol HFA 1 - 2 puffs IH Q4-6H PRN 09/10/17 10/29/17 History Inhaler] Aspirin [Aspir 81] 81 mg PO DAILY 09/10/17 10/29/17 History Atorvastatin Calcium [Lipitor 80mg 80 mg PO HS 09/10/17 10/29/17 History Tablet] Carvedilol [Carvedilol 25mg Tab] 25 mg PO BID 09/10/17 10/29/17 History Dabigatran Etexilate Mesylate 150 mg PO BID 09/10/17 10/29/17 History [Pradaxa] Esomeprazole Magnesium [Nexium] 40 mg PO DAILY 09/10/17 10/29/17 History Furosemide [Lasix 20mg tablet] 20 mg PO DAILY 09/10/17 10/29/17 History Gabapentin [Gabapentin 300mg Cap] 300 mg PO TID 09/10/17 10/29/17 History Lisinopril [Lisinopril 20mg Tab] 20 mg PO BID 09/10/17 10/29/17 History Tamsulosin HCl [Flomax 0.4mg 0.4 mg PO DAILY 09/10/17 10/29/17 History capsule] Finasteride [Proscar] 5 mg PO DAILY 10/28/17 10/29/17 History Prescriptions/Medication Reconciliation: Continue Albuterol Sulfate [Albuterol HFA Inhaler] 1 - 2 puffs IH Q4-6H PRN PRN Reason: Shortness Of Breath Or Wheezing Carvedilol [Carvedilol 25mg Tab] 25 mg PO BID Lisinopril [Lisinopril 20mg Tab] 20 mg PO BID Furosemide [Lasix 20mg tablet] 20 mg PO DAILY Tamsulosin HCl [Flomax 0.4mg capsule] 0.4 mg PO DAILY Gabapentin [Gabapentin 300mg Cap] 300 mg PO TID Esomeprazole Magnesium [Nexium] 40 mg PO DAILY Aspirin [Aspir 81] 81 mg PO DAILY Dabigatran Etexilate Mesylate [Pradaxa] 150 mg PO BID Atorvastatin Calcium [Lipitor 80mg Tablet] 80 mg PO HS Finasteride [Proscar] 5 mg PO DAILY
== END 2017-10-31 15:37 | disposition short-term general hospital (02) ==
LOC: ER 20:45 → 2ND 20:45
PROVIDERS: ADMIT Family Medicine; ATTEND Family Medicine

== ENCOUNTER → 2017-12-06 08:31 | Outpatient (CLI) | payer MEDICARE, MEDICAID, SELFPAY ==
--- NOTE | 2017-12-06 08:53 | CI_ITS ---
Cerebrovascular Exam Indications: TIA 434.91. Follow-up carotid 433.10. IMPRESSIONS 1. The bilateral vertebral arteries are patent with normal antegrade flow. 2. Study suggests 20-49% stenosis involving the right internal carotid artery and the left internal carotid artery. 3. Study suggests >60% stenosis involving the left external carotid artery. History: Risk factors: Former smoker - years since quittinyr. Labs, prior tests, procedures, and surgery: Left endarterectomy (2003). Labs, prior tests, procedures, and surgery: Left endarterectomy (2003). Carotid duplex study. Complete study and Doppler flow study including spectral analysis, color and larson scale imaging. Height: Height: 167.6cm. Height: 66in. Weight: Weight: 78.5kg. Weight: 172.6lb. Body mass index: BMI: 27.9kg/m^2. Body surface area: BSA: 1.93m^2. Location: Vascular laboratory. Patient status: Outpatient. Tables: Arterial flow: + +--------+--------+ Location V sys V ed + +--------+--------+ Right CCA - proximal 76.2cm/s 16.5cm/s + +--------+--------+ Right CCA - distal 66cm/s 13.4cm/s + +--------+--------+ Right ECA 103cm/s -------- + +--------+--------+ Right ICA - proximal 130cm/s 36.4cm/s + +--------+--------+ Right ICA - mid 80cm/s 28.1cm/s + +--------+--------+ Right ICA - distal 79.4cm/s 24.3cm/s + +--------+--------+ Right vertebral 45.7cm/s -------- + +--------+--------+ Left CCA - proximal 61.2cm/s 14.9cm/s + +--------+--------+ Left CCA - distal 58.5cm/s 15.4cm/s + +--------+--------+ Left ECA 268cm/s -------- + +--------+--------+ Left ICA - proximal 77.3cm/s 15.1cm/s + +--------+--------+ Left ICA - mid 82.3cm/s 31.4cm/s + +--------+--------+ Left ICA - distal 96.2cm/s 29.9cm/s + +--------+--------+ Left vertebral 48.9cm/s -------- + +--------+--------+ (Report amended ) Electronically signed by: Claudio Alamo [id number]
== END ==
PROVIDERS: Family Provider Family Medicine; PCP Family Medicine; Visit Provider Physician Assistant
DX: G45.8 Other transient cerebral ischemic attacks and related syndromes (principal)
CPT/HCPCS: 93880

== ENCOUNTER → 2018-01-01 12:25 | Outpatient (CLI) | payer MEDICARE, MEDICAID, SELFPAY ==
[2018-01-01 14:10] LABS: Anion Gap 9.5 mEq/L (5-15); Blood Urea Nitrogen 16 mg/dL (7-18); Calcium 9.2 mg/dL (8.5-10.1); Carbon Dioxide 33 mmol/L (21.0-32.0); Chloride 101 mmol/L (98-107); Creatinine,Serum 1.21 mg/dL (0.70-1.30); Estimated Glomerular Filt Rate 58 ml/min (>60); GFR (African American) 70 ML/MIN (>60); Glucose 117 mg/dL (74-106); Potassium 4.5 mmoL/L (3.5-5.1); Sodium 139 mmol/L (136-145); Thyroid Stimulating Hormone 3.89 uIU/ml (0.358-3.740)
== END ==
PROVIDERS: Visit Provider Physician Assistant
DX: R55 Syncope and collapse (principal); I10 Essential (primary) hypertension
CPT/HCPCS: 36415; 80048; 83735; 84443

== ENCOUNTER → 2018-01-16 12:08 | Outpatient (CLI) | payer MEDICARE, MEDICAID, SELFPAY | PROVIDERS: PCP Family Medicine; Visit Provider Physician Assistant | DX: I48.91 Unspecified atrial fibrillation (principal); R42 Dizziness and giddiness | CPT/HCPCS: 93225; 93226 ==

== ENCOUNTER → 2018-02-20 09:13 | Outpatient (POV) | payer MEDICARE, MEDICAID, SELFPAY | PROVIDERS: Family Provider Family Medicine; PCP Family Medicine; Visit Provider Internal Medicine | DX: Z00.01 Encounter for general adult medical examination with abnormal findings (principal) ==

== ENCOUNTER → 2018-03-07 07:41 | Outpatient (CLI) | payer MEDICARE, MEDICAID, SELFPAY ==
--- NOTE | 2018-03-07 07:43 | MR_ITS ---
MR head/brain wo con HISTORY: ITS.REASON: syncope ORDERING PHYSICIAN: Patricia Viveros MD PATIENT AGE: 77 years Comparison: 12/04/2017 TECHNIQUE: Standard multiplanar multiecho sequences are performed without contrast. FINDINGS: No evidence of acute infarction. There is generalized atrophy with periventricular and subcortical T2 white matter hyperintensities consistent with ischemic gliotic change from microvascular disease. No midline shift or mass effect. Prominent area of encephalomalacia change is in the right parieto-occipital region consistent with an area of old infarction. Encephalomalacia also noted in the left frontal parietal area. The cerebellopontine angles, cerebellum, and brainstem have an unremarkable appearance. Opacification of the right mastoid sinus. There is some fluid signal also within the left petrous bone consistent with fluid within a pneumatized petrous bone. There is moderate mucosal thickening of the left ethmoid sinus and mild mucosal thickening of the sphenoid sinus and left maxillary sinus. IMPRESSION: 1. No acute intracranial finding. 2. 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 3. Right mastoid sinus disease. Opacification/inflammation also noted in a pneumatized left petrous bone.
== END ==
PROVIDERS: Family Provider Family Medicine; PCP Family Medicine; Visit Provider Specialist
DX: R55 Syncope and collapse (principal)
CPT/HCPCS: 70551

== ENCOUNTER → 2018-03-19 08:08 | Outpatient (POV) | payer MEDICARE, MEDICAID, SELFPAY | PROVIDERS: Family Provider Family Medicine; PCP Family Medicine; Visit Provider Specialist | DX: R55 Syncope and collapse (principal) | CPT/HCPCS: 95819 ==

== ENCOUNTER → 2018-04-19 08:02 | Outpatient (CLI) | payer MEDICARE, MEDICAID, SELFPAY ==
--- NOTE | 2018-04-19 08:07 | CT_ITS ---
CT chest wo con HISTORY: Follow-up abnormal chest CT, emphysema, ITS.REASON: ABNORMAL CHEST X-RAY ORDERING PHYSICIAN: Lam Abad MD PATIENT AGE: 77 years COMPARISON: 08/02/2016 Technique: Axial images obtained with sagittal and coronal reformats. All CT scans at the facility use one or more dose reduction, viz: automated exposure control, ma/kV adjustment per patient size (including targeted exams where dose is matched to indication, i.e. head), or iterative reconstruction technique. FINDINGS: Atheromatous changes involve the aorta. No evidence of aortic aneurysm. Coronary artery calcifications and/or stents are present. There is mild mediastinal adenopathy. The largest node in the mediastinum is in the aortopulmonary window and measures up to 2.1 x 1.6 cm previously 2.1 x 1.4 cm. Other smaller nodes are present in the mediastinum. Centrilobular and paraseptal emphysematous changes are once again noted with scattered areas of scarring in the apices. Mild fibrotic changes are present in the right perihilar region. Calcified granulomas present in the right lung base. No effusions or infiltrates. 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 Previously noted atelectatic changes around the lipoma have improved. Atelectatic changes in the lingula inferior to the lipoma have increased. Low density changes in the posterior aspect of the spleen are stable. There is mild wedging involving the T12 vertebral body. This has developed since the older CT scan but has a chronic appearance. IMPRESSION: 1. Mild mediastinal adenopathy. The aortopulmonic window node appears slightly more bulky compared to the previous exam. This is of questionable clinical significance. 2. 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 3. No change isodense lesion of the spleen. 4. Mild centrilobular and paraseptal emphysema with scattered fibrotic changes 5. Mild wedging at T12 which has developed since the previous CT scan
[2018-04-19 10:13] VITALS: PULSE 60; PULSE 62
== END ==
PROVIDERS: Family Provider Family Medicine; PCP Family Medicine; Visit Provider Internal Medicine
DX: R06.02 Shortness of breath (principal); R93.8 Abnormal findings on diagnostic imaging of other specified body structures
CPT/HCPCS: 71250; 94060; 94618; 94640; 94727; 94729

== ENCOUNTER → 2018-05-08 13:13 | Outpatient (POV) | payer MEDICARE, MEDICAID, SELFPAY | PROVIDERS: Family Provider Family Medicine; PCP Family Medicine; Visit Provider Internal Medicine | DX: Z00.00 Encounter for general adult medical examination without abnormal findings (principal) ==

== ENCOUNTER 2018-08-27 22:30 | Observation (INO) ==
[2018-08-27 23:04] LABS: Basophils % 0.3 % (0.1-2.0); Eosinophils # 0.1 K/mm3 (0.0-0.4); Eosinophils % 1.3 % (0.1-12.0); Hematocrit 39.7 % (42.0-52.0); Hemoglobin 12.5 g/dL (14.1-18.0); Lymphocytes # 1.7 K/mm3 (0.7-4.5); Lymphocytes % 17.1 % (10-50); Mean Corpuscular HGB Conc 31.5 g/dL (31.8-35.4); Mean Corpuscular Hemoglobin 29.5 pg (27.0-31.2); Mean Corpuscular Volume 93.6 fl (80-94); Mean Platelet Volume 10.4 fl (7.4-10.4); Monocytes # 0.7 K/mm3 (0.1-1.0); Monocytes % 7.2 % (1.7-9.3); Neutrophils # 7.4 K/mm3 (1.8-7.8); Neutrophils % 74.1 % (37.0-80.0); Platelet Count 150 K/mm3 (142-424); Red Blood Count 4.24 M/mm3 (4.60-6.20); White Blood Count 9.9 K/mm3 (4.8-10.8)
[2018-08-27 23:18] LABS: Alanine Aminotransferase 25 U/L (12-78); Albumin Level 3.8 gm/dL (3.4-5.0); Alkaline Phosphatase 118 U/L (46-116); Anion Gap 15.8 mEq/L (5-15); Aspartate Amino Transferase 17 U/L (15-37); Bilirubin,Total 1.8 mg/dL (0.2-1.0); Blood Urea Nitrogen 21 mg/dL (7-18); Calcium 9.1 mg/dL (8.5-10.1); Carbon Dioxide 27 mmol/L (21.0-32.0); Chloride 101 mmol/L (98-107); Globulin 3.8 gm/dl (1.3-3.2); Glucose 184 mg/dL (74-106); Potassium 3.8 mmoL/L (3.5-5.1); Sodium 140 mmol/L (136-145); Total Protein,Serum 7.6 gm/dL (6.4-8.2)
--- NOTE | 2018-08-28 00:36 | Emergency Department Note ---
ED Disposition Clinical Impression: Acute exacerbation of chronic obstructive airways disease, Renal insufficiency, Bronchitis A-fib Qualifiers: Atrial fibrillation type: chronic Qualified Code(s): I48.2 - Chronic atrial fibrillation Disposition: Admitted as Observation Condition on Discharge: Good Referrals: Colby Quan MD [Primary Care Provider] - - Critical Care Critical Care Time: No Attestation: On 08/27/18, the high probability of a clinically significant, sudden or life threatening deterioration of the following system(s) required my full and direct attention, intervention and personal management. The time I documented below is in addition to time spent performing reported procedures but includes the foll owing listed in this critical care notation. Medical Decision Making - Medical Records Medical records reviewed: Yes: I reviewed the patient's medical records. - Han Inquiry Pt receiving controlled substance: No Vital Signs: 08/27/18 22:36 08/27/18 23:53 Temperature 98.4 F Temperature Source Oral Pulse Rate 80 Pulse Rate [Right Radial] 81 Respiratory Rate 22 Blood Pressure [Right Arm] 160/77 H Blood Pressure Mean [Right Arm] 104 02 Sat by Pulse Oximetry 91 L - Lab Data Lab results reviewed: Yes: I reviewed the patient's lab results. Lab Results 08/27/18 22:50: Influenza Type A Ag Negative, Influenza Type B Ag Negative 08/27/18 22:53: WBC 9.9, RBC 4.24 L, Hgb 12.5 L, Hct 39.7 L, MCV 93.6, MCH 29.5, MCHC 31.5 L, RDW 16.0, Plt Count 150, MPV 10.4, Neut % (Auto) 74.1, Lymph % (Auto) 17.1, [place] % (Auto) 7.2, Eos % (Auto) 1.3, Baso % (Auto) 0.3, Neut # (Auto) 7.4, Lymph # (Auto) 1.7, [place] # (Auto) 0.7, Eos # (Auto) 0.1, Baso # (A uto) 0.0 08/27/18 22:53: Sodium 140, Potassium 3.8, Chloride 101, Carbon Dioxide 27, Anion Gap 15.8 H, BUN 21 H, Creatinine 1.75 H, Estimated Creat Clear 45, Estimated GFR 38 L, Est GFR ( Amer) 46 L, Glucose 184 H, Calcium 9.1, Total Bilirubin 1.8 H, AST 17, ALT 25, Alkaline Phosphatase 118 H, Troponin I < 0.02, Total Protein 7.6, Albumin 3.8, Globulin 3.8 H, Albumin/Globulin Ratio 1.0 L 08/27/18 22:53: Lactate 2.1 H Result diagrams: 08/27/18 22:53 08/27/18 22:53 Orders (Tests/Meds): ED MEDICATIONS Generic Name Dose Route Start Last Admin Trade Name Freq PRN Reason Stop Dose Admin Sodium Chloride 10 ml 08/27/18 22:43 Saline Flush 10ml Syringe IV 09/26/18 22:42 NEEDED PRN Maintain IV Site Discontinued Medications Generic Name Dose Route Start Last Admin Trade Name Freq PRN Reason Stop Dose Admin Albuterol/Ipratropium 3 ml 08/27/18 22:43 08/27/18 23:53 Duoneb 3ml Neb IH 08/27/18 22:44 3 ml ONCE ONE Administration Methylprednisolone Sodium Succinate 125 mg 08/27/18 22:43 08/27/18 22:52 Solu-Medrol 125mg/2ml Vial IV 08/27/18 22:44 125 mg ONCE ONE Administration ORDERS Category Date Time Status XR chest 2V Stat Exams 08/27/18 22:42 Taken Blood Culture Stat Micro 08/27/18 22:53 Received - Radiology Data #1 Image(s): Chest Image Reviewed: Yes I reviewed the patient's radiology image Preliminary Findings: Abnormal (inc heather bases ) - ECG Data Tracing #1 Arrhythmias present: afib Ischemic changes: non-specific ST-T wave changes ECG compared to prior tracings: there are no significant changes - Physician Consults Physician Consulted: sirena Reason -: Admission Resp/SOB HPI - General Chief Complaint: Shortness of Breath/Dyspnea Stated Complaint: SOA Time Seen by Provider: 08/27/18 23:05 Mode of Arrival: Family Vehicle Source of Information: Patient, Relative, Medical Record Limitations: No Limitations Description of Symptoms (Recalled from ER Triage Doc. by RN): pt states he has been having shortness of breath for 2-3 days. pt states he has copd. denies fever. - History of Present Illness progressive sob over the last 2 days with occ cough - no chest pain has hx of copd and has hx of a fib MD Complaint: shortness of breath, cough Onset (ago): day(s) Severity: moderate Known history of: COPD Associated symptoms: denies other symptoms Treatment prior to arrival: oxygen, bronchodilator - Related Data Home oxygen amount: 2 liters Home Medications Medication Instructions Recorded Confirmed Albuterol Sulfate [Albuterol HFA 1 - 2 puffs IH Q4-6H PRN 09/10/17 08/27/18 Inhaler] Aspirin [Aspir 81] 81 mg PO DAILY 09/10/17 08/27/18 Atorvastatin Calcium [Lipitor 80mg 80 mg PO HS 09/10/17 08/27/18 Tablet] Carvedilol [Carvedilol 25mg Tab] 25 mg PO BID 09/10/17 08/27/18 Esomeprazole Magnesium [Nexium] 40 mg PO DAILY 09/10/17 08/27/18 Gabapentin [Gabapentin 300mg Cap] 300 mg PO TID 09/10/17 08/27/18 Tamsulosin HCl [Flomax 0.4mg 0.4 mg PO DAILY 09/10/17 08/27/18 capsule] furosemide 20 mg tablet 20 mg PO ONCE 12/19/17 08/27/18 lisinopril 20 mg tablet 20 mg PO ONCE 12/19/17 08/27/18 amlodipine 2.5 mg tablet 2.5 mg PO DAILY tab 01/09/18 08/27/18 apixaban 5 mg tablet 5 mg PO BID 01/29/18 08/27/18 albuterol sulfate HFA 90 1 puff INHALATION Q6H PRN 03/26/18 08/27/18 mcg/actuation aerosol inhaler Allergies Allergy/AdvReac Type Severity Reaction Status Date / Time Penicillins Allergy Verified 08/27/18 22:42 [facility] History - Hepatitis A Screen Drug use history?: No High risk sexual behaviors?: No History of sexually transmitted infection?: No Currently employed?: No Childcare worker?: No Do you have indoor plumbing?: No Do you have electricity?: Yes Attestation statement:: This patient has been screened for Hepatitis A risk factors. I have reviewed the patient's past medical history: Yes Medical History: Reports:: Arrhythmia, Atherosclerotic Heart Disease, Atrial Fibrillation, Congestive Heart Failure, Chronic Obstructive Pulmonary Disease (COPD), Coronary Artery Disease, Gall Bladder Disease, Gastroesophageal Reflux Disease(GERD), Home Oxygen, Hyperlipidemia, Hypertension, Lung Disease, Peripheral Artery Disease, Renal Disease, Ulcer Denies:: Cancer, Diabetes Mellitus Type 1, Diabetes Mellitus Type 2, Hepatitis, MRSA, Seizures, Transient Ischemic Attacks (TIA) Other Medical History: Reports: Cataracts. Denies: Hypothyroidism, Thyroid Disease Comment: Metabolic encephalopathy Laterality Cases: Bilateral: Myringotomy (Ear Tubes) Other Surgeries: Yes: Cardiac Catheterization, Other Amputation: No Fractures: No Comment: Neck Surgery, Right leg surgery tubes placed - Social History Smoking Status: Former smoker Tobacco Type: cigarettes #Yrs smoked (if former smoker): 50 Alcohol Intake: never Alcohol Intake Frequency:: other Substance Use Type: denies use Occupational Status: retired Housing: house Household Members: family - Psychiatric History Expresses thoughts of harming self/others: None Suicide Plan Description: No Plan Family Hx:: Cancer, Diabetes, Heart Attack, Stroke, Hyperlipidemia, Hypertension ROS Obtained: Yes All systems reviewed & no additional complaints - Constitutional Constitutional: Denies fever(s) - Eyes Eyes: Denies change in vision - ENT Ears, Nose, Mouth, and Throat: Denies sore throat - Cardiovascular Cardiovascular: Reports chest pain, Reports dyspnea - Respiratory Respiratory: Yes cough, Yes dyspnea, No coughing up blood - Gastrointestinal Gastrointestingal: Denies: abdominal pain - Genitourinary Male Genitourinary: Denies hematuria - Integumentary/Breasts Skin/Breast: Denies rash - Neurologic Neurologic: Denies seizure-like activity Physical Exam - General General appearance: alert, in no apparent distress - Head Head exam: normocephalic - Eye Eye exam: Present: PERRL, EOMI. Absent: scleral icterus - ENT ENT exam: Present: mucous membranes dry - Neck Neck exam: Present: trachea midline - Respiratory Respiratory exam: Present: wheezes, other (rhonchi ). Absent: respiratory distress - Cardiovascular Cardiovascular exam: Present: regular rate, systolic murmur, +S4 - Abdominal Exam Abdominal exam: Present: soft - Extremities Exam Extremities exam: Absent: calf tenderness - Neurological Exam Neurological exam: Present: alert, oriented X3, CN II-XII intact - Psychiatric Psychiatric exam: Present: normal affect - Skin Skin exam: Absent: rash
[2018-08-28 04:42] LABS: Basophils % 0.2 % (0.1-2.0); Eosinophils % 0.2 % (0.1-12.0); Hematocrit 38.5 % (42.0-52.0); Lymphocytes # 0.8 K/mm3 (0.7-4.5); Lymphocytes % 9.5 % (10-50); Mean Corpuscular HGB Conc 31.2 g/dL (31.8-35.4); Mean Corpuscular Hemoglobin 29.5 pg (27.0-31.2); Mean Corpuscular Volume 94.6 fl (80-94); Mean Platelet Volume 10.5 fl (7.4-10.4); Monocytes # 0.3 K/mm3 (0.1-1.0); Monocytes % 2.9 % (1.7-9.3); Neutrophils # 7.6 K/mm3 (1.8-7.8); Neutrophils % 87.3 % (37.0-80.0); Platelet Count 149 K/mm3 (142-424); Red Blood Count 4.08 M/mm3 (4.60-6.20); Red Cell Distribution Width 16.1 % (11.5-17.5); White Blood Count 8.7 K/mm3 (4.8-10.8)
[2018-08-28 04:49] LABS: Anion Gap 13.9 mEq/L (5-15); Blood Urea Nitrogen 21 mg/dL (7-18); Carbon Dioxide 26 mmol/L (21.0-32.0); Chloride 103 mmol/L (98-107); Glucose 220 mg/dL (74-106); Potassium 3.9 mmoL/L (3.5-5.1); Sodium 139 mmol/L (136-145)
[2018-08-28 05:50] LABS: Anisocytosis 1+; Lymphocytes % 5 % (10-50); Monocytes % 1 % (2-9); Neutrophils % 94 % (42-76); Ovalocytes 1+; Stomatocytes 1+; Total Cells Counted 100
--- NOTE | 2018-08-28 09:39 | History & Physical Report ---
*Admission Date: 08/28/18 <nAa Garcia 08/28/18 09:39> *Chief complaint: Shortness of breath <GarciaGiftyAna 08/28/18 09:39> *History of present illness: Mr. 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 He was brought to the [facility] emergency room for evaluation by his granddaughter. He states that [place] lasted for about 2 hours. He became short of breath and was without his oxygen and duo nebs. He went home at which time his granddaughter brought him to the emergency room for unresolved shortness of breath. He had minimal cough. He states that he felt fine prior to this. He did feel his heart beat faster but denies any chest pain. With evaluation in the emergency room he was given a DuoNeb treatment and Solu- Medrol. He was noted to be in his atrial fibrillation. He was admitted for further observation and treatment. This a.m. he does feel fine. He states he is breathing as usual. He is wearing oxygen. He denies chest pain. He has completed his breakfast and enjoyed. <GarciaGiftyAna 08/28/18 09:56> [facility] History Medical History: Reports:: Arrhythmia, Atherosclerotic Heart Disease, Atrial Fibrillation, Congestive Heart Failure, Chronic Obstructive Pulmonary Disease (COPD), Coronary Artery Disease, Gall Bladder Disease, Gastroesophageal Reflux Disease(GERD), Home Oxygen, Hyperlipidemia, Hypertension, Lung Disease, Palpitations, Peripheral Artery Disease, Renal Disease, Renal Insufficiency, Transient Ischemic Attacks (TIA), Ulcer Denies:: Cancer, Diabetes Mellitus Type 1, Diabetes Mellitus Type 2, Hepatit is, MRSA, Seizures <Ana Garcia 08/28/18 09:56> Have you ever received a pneumonia vaccine?: Yes <Ana Garcia 08/28/18 09:39> Have you received a flu vaccine this season?: No (NOT SURE) <Ana Garcia 08/28/18 09:39> Other Medical History: Reports: Anemia, Arthritis, Cataracts. Denies: Hypothyroidism, Thyroid Disease <Ana Garcia 08/28/18 09:56> Laterality Cases: Bilateral: Cataract, Myringotomy (Ear Tubes) <JoseAna 08/28/18 09:39> Other Surgeries: Yes: CABG, Cardiac Catheterization, Cholecystectomy, Other (Renal artery stent) <Garcia,Ana 08/28/18 09:56> Amputation: No <Ana Garcia 08/28/18 09:39> Fractures: No <JoseAna 08/28/18 09:39> - *Social History Educational Level: Completed Grade School <GarciaAna 08/28/18 09:39> Smoking Status: Former smoker <Ana Garcia 08/28/18 09:39> Tobacco Type: cigarettes <Ana Garcia 08/28/18 09:39> #Yrs smoked (if former smoker): 50 <JoseAna 08/28/18 09:39> Alcohol Intake: current <Ana Garcia 08/28/18 09:39> Alcohol Intake Frequency:: a few times a month <JoseAna 08/28/18 09:39> Substance Use Type: denies use <Garcia,Ana 08/28/18 09:39> Occupational Status: retired <Garcia,Ana 08/28/18 09:39> Housing: house <GarciaAna 08/28/18 09:39> Household Members: family <JoseAna 08/28/18 09:39> Travel in the last 8 weeks: None <Ana Garcia 08/28/18 09:39> - Psychiatric History Expresses thoughts of harming self/others: None <Ana Garcia 08/28/18 09:39> Suicide Plan Description: No Plan <Ana Garcia 08/28/18 09:39> *Family Hx:: Cancer, Diabetes, Heart Attack, Stroke, Hyperlipidemia, Hypertension <Ana Garcia 08/28/18 09:39> Review of Systems - Constitutional Denies fatigue, Denies fever(s) <Ana Garcia 08/28/18 09:56> - Eyes Denies change in vision <Ana Garcia 08/28/18 09:56> - ENT Denies ear pain, Denies sore throat <GarciaAna - 08/28/18 09:56> - *Cardiovascular Reports shortness of breath, Reports irregular heart rhythm, Denies chest pain, Denies leg swelling <JoseAna - 08/28/18 09:56> - *Respiratory Reports cough, Reports shortness of breath, Denies chest congestion, Denies coughing up blood <Garcia,[facility] 08/28/18 09:56> - *Gastrointestinal Denies abdominal pain, Denies constipation, Denies loose stools, Denies heartburn, Denies vomiting blood, Denies nausea, Denies vomiting <[facility] 08/28/18 09:56> - *Genitourinary Denies difficulty urinating <[facility] 08/28/18 09:56> - *Musculoskeletal Denies abnormal walking <[facility] 08/28/18 09:56> - *Neurologic Denies dizziness, Denies seizure-like activity <[facility] 08/28/18 09:56> Meds Home Medications Medication Instructions Recorded Confirmed Type Albuterol Sulfate [Albuterol HFA 1 - 2 puffs IH Q4-6H PRN 09/10/17 08/27/18 History Inhaler] Aspirin [Aspir 81] 81 mg PO DAILY 09/10/17 08/27/18 History Atorvastatin Calcium [Lipitor 80mg 80 mg PO HS 09/10/17 08/27/18 History Tablet] Carvedilol [Carvedilol 25mg Tab] 25 mg PO BID 09/10/17 08/27/18 History Esomeprazole Magnesium [Nexium] 40 mg PO DAILY 09/10/17 08/27/18 History Gabapentin [Gabapentin 300mg Cap] 300 mg PO TID 09/10/17 08/27/18 History Tamsulosin HCl [Flomax 0.4mg 0.4 mg PO DAILY 09/10/17 08/27/18 History capsule] furosemide 20 mg tablet 20 mg PO ONCE 12/19/17 08/27/18 History lisinopril 20 mg tablet 20 mg PO ONCE 12/19/17 08/27/18 History amlodipine 2.5 mg tablet 2.5 mg PO DAILY tab 01/09/18 08/27/18 History apixaban 5 mg tablet 5 mg PO BID 01/29/18 08/27/18 History albuterol sulfate HFA 90 1 puff INHALATION Q6H PRN 03/26/18 08/27/18 History mcg/actuation aerosol inhaler <Colby Quan - 08/28/18 10:23> Allergies Allergy/AdvReac Type Severity Reaction Status Date / Time Penicillins Allergy Verified 08/27/18 22:42 <Colby Quan - 08/28/18 10:23> Exam Vital signs and Labs for Last 24 Hours: Temp Pulse Resp BP Pulse Ox 97.4 F L 90 22 161/77 H 91 L 08/28/18 08:00 08/28/18 09:39 08/28/18 08:00 08/28/18 08:00 08/28/18 08:00 Laboratory Results - last 24 hr 08/27/18 22:50: Influenza Type A Ag Negative, Influenza Type B Ag Negative 08/27/18 22:53: WBC 9.9, RBC 4.24 L, Hgb 12.5 L, Hct 39.7 L, MCV 93.6, MCH 29.5, MCHC 31.5 L, RDW 16.0, Plt Count 150, MPV 10.4, Neut % (Auto) 74.1, Lymph % (Auto) 17.1, [place] % (Auto) 7.2, Eos % (Auto) 1.3, Baso % (Auto) 0.3, Neut # (Auto) 7.4, Lymph # (Auto) 1.7, [place] # (Auto) 0.7, Eos # (Auto) 0.1, Baso # (Auto) 0.0 08/27/18 22:53: Sodium 140, Potassium 3.8, Chloride 101, Carbon Dioxide 27, Anion Gap 15.8 H, BUN 21 H, Creatinine 1.75 H, Estimated Creat Clear 45, Estimated GFR 38 L, Est GFR ( Amer) 46 L, Glucose 184 H, Calcium 9.1, Total Bilirubin 1.8 H, AST 17, ALT 25, Alkaline Phosphatase 118 H, Troponin I < 0.02, Total Protein 7.6, Albumin 3.8, Globulin 3.8 H, Albumin/Globulin Ratio 1.0 L 08/27/18 22:53: Lactate 2.1 H 08/28/18 03:00: Lactate 1.1 08/28/18 04:15: WBC 8.7, RBC 4.08 L, Hgb 12.0 L, Hct 38.5 L, MCV 94.6 H, MCH 29.5, MCHC 31.2 L, RDW 16.1, Plt Count 149, MPV 10.5 H, Neut % (Auto) 87.3 H, Lymph % (Auto) 9.5 L, [place] % (Auto) 2.9, Eos % (Auto) 0.2, Baso % (Auto) 0.2, Neut # (Auto) 7.6, Lymph # (Auto) 0.8, [place] # (Auto) 0.3, Eos # (Auto) 0.0, Baso # (Auto) 0.0, Total Counted 100, Neutrophils % (Manual) 94 H, Lymphocytes % (Manual) 5 L, Monocytes % (Manual) 1 L, Platelet Estimate Normal, Anisocytosis 1+, Ovalocytes 1+, Stomatocytes 1+ 08/28/18 04:15: Sodium 139, Potassium 3.9, Chloride 103, Carbon Dioxide 26, Anion Gap 13.9, BUN 21 H, Creatinine 1.61 H, Estimated Creat Clear 44, Estimated GFR 42 L, Est GFR ( Amer) 50 L, Glucose 220 H, Calcium 9.0, Magnesium 2.0, Troponin I < 0.02 08/28/18 07:45: Troponin I < 0.02 <Colby Quan - 08/28/18 10:23> Temp Pulse Resp BP Pulse Ox 97.4 F L 78 22 161/77 H 91 L 08/28/18 08:00 08/28/18 08:00 08/28/18 08:00 08/28/18 08:00 08/28/18 08:00 Laboratory Results - last 24 hr 08/27/18 22:50: Influenza Type A Ag Negative, Influenza Type B Ag Negative 08/27/18 22:53: WBC 9.9, RBC 4.24 L, Hgb 12.5 L, Hct 39.7 L, MCV 93.6, MCH 29.5, MCHC 31.5 L, RDW 16.0, Plt Count 150, MPV 10.4, Neut % (Auto) 74.1, Lymph % (Auto) 17.1, [place] % (Auto) 7.2, Eos % (Auto) 1.3, Baso % (Auto) 0.3, Neut # (Auto) 7.4, Lymph # (Auto) 1.7, [place] # (Auto) 0.7, Eos # (Auto) 0.1, Baso # (Auto) 0.0 08/27/18 22:53: Sodium 140, Potassium 3.8, Chloride 101, Carbon Dioxide 27, Anion Gap 15.8 H, BUN 21 H, Creatinine 1.75 H, Estimated Creat Clear 45, Estimated GFR 38 L, Est GFR ( Amer) 46 L, Glucose 184 H, Calcium 9.1, Total Bilirubin 1.8 H, AST 17, ALT 25, Alkaline Phosphatase 118 H, Troponin I < 0.02, Total Protein 7.6, Albumin 3.8, Globulin 3.8 H, Albumin/Globulin Ratio 1.0 L 08/27/18 22:53: Lactate 2.1 H 08/28/18 03:00: Lactate 1.1 08/28/18 04:15: WBC 8.7, RBC 4.08 L, Hgb 12.0 L, Hct 38.5 L, MCV 94.6 H, MCH 29.5, MCHC 31.2 L, RDW 16.1, Plt Count 149, MPV 10.5 H, Neut % (Auto) 87.3 H, Lymph % (Auto) 9.5 L, [place] % (Auto) 2.9, Eos % (Auto) 0.2, Baso % (Auto) 0.2, Neut # (Auto) 7.6, Lymph # (Auto) 0.8, [place] # (Auto) 0.3, Eos # (Auto) 0.0, Baso # (Auto) 0.0, Total Counted 100, Neutrophils % (Manual) 94 H, Lymphocytes % (Manual) 5 L, Monocytes % (Manual) 1 L, Platelet Estimate Normal, Anisocytosis 1+, Ovalocytes 1+, Stomatocytes 1+ 08/28/18 04:15: Sodium 139, Potassium 3.9, Chloride 103, Carbon Dioxide 26, Anion Gap 13.9, BUN 21 H, Creatinine 1.61 H, Estimated Creat Clear 44, Estimated GFR 42 L, Est GFR ( Amer) 50 L, Glucose 220 H, Calcium 9.0, Magnesium 2.0, Troponin I < 0.02 08/28/18 07:45: Troponin I < 0.02 <Ana Garcia 08/28/18 09:39> I & O for Last 24 hours: Intake & Output 08/25/18 08/26/18 08/27/18 08/28/18 11:59 11:59 11:59 11:59 Intake Total 1226 / 1226 Output Total 800 / 800 Balance 426 / 426 Weight 180 lb 3 oz <Colby Quan - 08/28/18 10:23> Intake & Output 08/25/18 08/26/18 08/27/18 08/28/18 11:59 11:59 11:59 11:59 Intake Total 1226 / 1226 Output Total 400 / 400 Balance 826 / 826 Weight 180 lb 3 oz <Ana Garcia - 08/28/18 09:39> Microbiology Reports for the Last 24 Hours: Microbiology 08/28/18 00:45 Sputum - Expectorated Sputum Gram Stain - Final <Colby Quan - 08/28/18 10:23> Microbiology 08/28/18 00:45 Sputum - Expectorated Sputum Gram Stain - Final <Ana Garcia 08/28/18 09:39> Radiology Reports for the Last 24 Hours: 08/27/2018 chest x-ray IMPRESSION: COPD, mild CHF. No change pleural-based nodular lesion left lower lobe. No significant change <GarciaAna 08/28/18 09:56> - Constitutional no acute distress <JoseAna 08/28/18 09:56> Comments: Sitting on the bedside and appears comfortable. He is wearing his oxygen <JoseAna 08/28/18 09:56> - *Routine HEENT Exam Head: Present: normocephalic, atraumatic <JoseAna 08/28/18 09:56> Eye: Present: PERRL. Absent: conjunctival icterus, scleral injection <JoseAna 08/28/18 09:56> ENT: Present: mucous membranes moist, nares patent <Ana Garcia 08/28/18 09:56> - *Routine Neck Exam Present: supple. Absent: carotid bruit, lymphadenopathy, thyromegaly <Ana Garcia 08/28/18 09:56> - *Routine Respiratory Exam Present: decreased breath sounds (Posteriorly), prolonged expiratory phase <Ana Garcia 08/28/18 09:56> - *Routine Cardiovascular Exam Present: irregular rhythm (Monitor showing atrial fibrillation with controlled ventricular response) <Ana Garcia 08/28/18 09:56> - *Routine Abdominal Exam Present: soft, normoactive bowel sounds. Absent: tenderness <Ana Garcia 08/28/18 09:56> - *Routine Extremities Exam Absent: edema, calf tenderness <Ana Garcia 08/28/18 09:56> - *Routine Neurological Exam Present: alert, oriented X3 <Ana Garcia 08/28/18 09:56> Assessment and Plan (1) Acute exacerbation of chronic obstructive airways disease Current visit: Yes Status: Acute Category: Medical Code(s): J44.1 - Chronic obstructive pulmonary disease with (acute) exacerbation (2) A-fib Current visit: Yes Status: Chronic Qualifiers: Atrial fibrillation type: chronic Qualified Code(s): I48.2 - Chronic atrial fibrillation Category: Medical Code(s): I48.91 - Unspecified atrial fibrillation (3) Renal insufficiency Current visit: Yes Status: Chronic Category: Medical Code(s): N28.9 - Disorder of kidney and ureter, unspecified (4) CAD (coronary artery disease) Current visit: No Status: Chronic Qualifiers: Coronary Disease-Associated Artery/Lesion type: unspecified vessel or lesion type [place] vs. transplanted heart: [place] heart Associated angina: with unspecified angina Qualified Code(s): I25.119 - Atherosclerotic heart disease of [place] coronary artery with unspecified angina pectoris Category: Medical Code(s): I25.10 - Atherosclerotic heart disease of [place] coronary artery without angina pectoris (5) COPD (chronic obstructive pulmonary disease) Current visit: No Status: Chronic Qualifiers: COPD type: unspecified COPD Qualified Code(s): J44.9 - Chronic obstructive pulmonary disease, unspecified Category: Medical Code(s): J44.9 - Chronic obstructive pulmonary disease, unspecified (6) DM2 (diabetes mellitus, type 2) Current visit: Yes Status: Acute Category: Medical Code(s): E11.9 - Type 2 diabetes mellitus without complications <Colby Quan - 08/28/18 10:23> (1) Acute exacerbation of chronic obstructive airways disease Current visit: Yes Status: Acute Category: Medical Code(s): J44.1 - [place] obstructive pulmonary disease with (acute) exacerbation (2) A-fib Current visit: Yes Status: Chronic Qualifiers: Atrial fibrillation type: chronic Qualified Code(s): I48.2 - Chronic atrial fibrillation Category: Medical Code(s): I48.91 - Unspecified atrial fibrillation (3) Renal insufficiency Current visit: Yes Status: Chronic Category: Medical Code(s): N28.9 - Disorder of kidney and ureter, unspecified (4) CAD (coronary artery disease) Current visit: No Status: Chronic Qualifiers: Coronary Disease-Associated Artery/Lesion type: unspecified vessel or lesion type [place] vs. transplanted heart: [place] heart Associated angina: with unspecified angina Qualified Code(s): I25.119 - Atherosclerotic heart disease of [place] coronary artery with unspecified angina pectoris Category: Medical Code(s): I25.10 - Atherosclerotic heart disease of [place] coronary artery without angina pectoris (5) COPD (chronic obstructive pulmonary disease) Current visit: No Status: Chronic Qualifiers: COPD type: unspecified COPD Qualified Code(s): J44.9 - Chronic obstructive pulmonary disease, unspecified Category: Medical Code(s): J44.9 - Chronic obstructive pulmonary disease, unspecified <Ana Garcia - 08/28/18 09:39> - Assessment and plan all Dx Assessment and Plan for all problems:: Saw patient, agree with above note. <Colby Quan - 08/28/18 10:23> Patient has been started on IV Rocephin, scheduled duo nebs, scheduled IV Solu- Medrol and home medicines. Will saline lock IV. Continue to assess. <Ana Garcia - 08/28/18 09:56>
--- NOTE | 2018-08-28 12:15 | Pharmacy Consult Notes ---
[facility] Pharmacy VTE Monitoring - Patient Demographics Admission date: 08/28/18 Report Date: 08/28/18 Time: 12:15 Allergies/Adverse Reactions: Patient Allergies Penicillins Allergy (Verified 08/27/18 22:42) Height: 1.65 m Weight: 81.732 kg Patient Problems: Current Active Problems A-fib (Chronic) Renal insufficiency (Chronic) Acute exacerbation of chronic obstructive airways disease (Acute) Bronchitis (Acute) DM2 (diabetes mellitus, type 2) (Acute) - VTE Risk Labs: VTE Related Lab Results Hgb 12.0 g/dL (14.1-18.0) L 08/28/18 04:15 Hct 38.5 % (42.0-52.0) L 08/28/18 04:15 Plt Count 149 K/mm3 (142-424) 08/28/18 04:15 BUN 21 mg/dL (7-18) H 08/28/18 04:15 Creatinine 1.61 mg/dL (0.70-1.30) H 08/28/18 04:15 Estimated Creat Clear 44 mL/min (50-200) 08/28/18 04:15 Was VTE Risk Assessment Performed: Yes VTE Risk Level: Low Risk - Prophylaxis VTE Prophylaxis Ordered?: Yes Types of VTE Prophylaxis: TEDS Knee High, Pharmacological Location of Applied Device: Bilateral Lower Extremeties Pharmacologic Type: Other (ELIQUIS)
--- NOTE | 2018-08-28 16:21 | Progress Note ---
Internal Medicine - PN: Teddy *Date: 08/28/18 *Time: 16:20 Interval history: Patient is breathing much better after receiving antibiotics and Lasix. He would like to go home now. Exam Vital signs and Labs for Last 24 Hours: Temp Pulse Resp BP Pulse Ox 98.5 F 77 19 155/81 H 92 L 08/28/18 11:27 08/28/18 15:31 08/28/18 15:31 08/28/18 15:31 08/28/18 15:31 Laboratory Results - last 24 hr 08/27/18 22:50: Influenza Type A Ag Negative, Influenza Type B Ag Negative 08/27/18 22:53: WBC 9.9, RBC 4.24 L, Hgb 12.5 L, Hct 39.7 L, MCV 93.6, MCH 29.5, MCHC 31.5 L, RDW 16.0, Plt Count 150, MPV 10.4, Neut % (Auto) 74.1, Lymph % (Auto) 17.1, [place] % (Auto) 7.2, Eos % (Auto) 1.3, Baso % (Auto) 0.3, Neut # (Auto) 7.4, Lymph # (Auto) 1.7, [place] # (Auto) 0.7, Eos # (Auto) 0.1, Baso # (Auto) 0.0 08/27/18 22:53: Sodium 140, Potassium 3.8, Chloride 101, Carbon Dioxide 27, Anion Gap 15.8 H, BUN 21 H, Creatinine 1.75 H, Estimated Creat Clear 45, Estimated GFR 38 L, Est GFR ( Amer) 46 L, Glucose 184 H, Calcium 9.1, Total Bilirubin 1.8 H, AST 17, ALT 25, Alkaline Phosphatase 118 H, Troponin I < 0.02, Total Protein 7.6, Albumin 3.8, Globulin 3.8 H, Albumin/Globulin Ratio 1.0 L 08/27/18 22:53: Lactate 2.1 H 08/28/18 03:00: Lactate 1.1 08/28/18 04:15: WBC 8.7, RBC 4.08 L, Hgb 12.0 L, Hct 38.5 L, MCV 94.6 H, MCH 29.5, MCHC 31.2 L, RDW 16.1, Plt Count 149, MPV 10.5 H, Neut % (Auto) 87.3 H, Lymph % (Auto) 9.5 L, [place] % (Auto) 2.9, Eos % (Auto) 0.2, Baso % (Auto) 0.2, Neut # (Auto) 7.6, Lymph # (Auto) 0.8, [place] # (Auto) 0.3, Eos # (Auto) 0.0, Baso # (Auto) 0.0, Total Counted 100, Neutrophils % (Manual) 94 H, Lymphocytes % (Manual) 5 L, Monocytes % (Manual) 1 L, Platelet Estimate Normal, Anisocytosis 1+, Ovalocytes 1+, Stomatocytes 1+ 08/28/18 04:15: Sodium 139, Potassium 3.9, Chloride 103, Carbon Dioxide 26, Anion Gap 13.9, BUN 21 H, Creatinine 1.61 H, Estimated Creat Clear 44, Estimated GFR 42 L, Est GFR ( Amer) 50 L, Glucose 220 H, Calcium 9.0, Magnesium 2.0, Troponin I < 0.02 08/28/18 07:45: Troponin I < 0.02 I & O for Last 24 hours: Intake & Output 08/26/18 08/27/18 08/28/18 08/29/18 11:59 11:59 11:59 11:59 Intake Total 1226 / 1226 240 / 240 Output Total 1200 / 1200 1000 / 1000 Balance -760 / -760 Weight 180 lb 3 oz 180 lb 3 oz Microbiology Reports for the Last 24 Hours: Microbiology 08/28/18 00:45 Sputum - Expectorated Sputum Gram Stain - Final Assessment and Plan (1) Acute exacerbation of chronic obstructive airways disease Current visit: Yes Status: Acute Category: Medical Code(s): J44.1 - Chronic obstructive pulmonary disease with (acute) exacerbation (2) A-fib Current visit: Yes Status: Chronic Qualifiers: Atrial fibrillation type: chronic Qualified Code(s): I48.2 - Chronic atrial fibrillation Category: Medical Code(s): I48.91 - Unspecified atrial fibrillation (3) Renal insufficiency Current visit: Yes Status: Chronic Category: Medical Code(s): N28.9 - Disorder of kidney and ureter, unspecified (4) CAD (coronary artery disease) Current visit: No Status: Chronic Qualifiers: Coronary Disease-Associated Artery/Lesion type: unspecified vessel or lesion type [place] vs. transplanted heart: [place] heart Associated angina: with unspecified angina Qualified Code(s): I25.119 - Atherosclerotic heart disease of [place] coronary artery with unspecified angina pectoris Category: Medical Code(s): I25.10 - Atherosclerotic heart disease of [place] coronary artery without angina pectoris (5) COPD (chronic obstructive pulmonary disease) Current visit: No Status: Chronic Qualifiers: COPD type: unspecified COPD Qualified Code(s): J44.9 - Chronic obstructive pulmonary disease, unspecified Category: Medical Code(s): J44.9 - Chronic obstructive pulmonary disease, unspecified (6) DM2 (diabetes mellitus, type 2) Current visit: Yes Status: Acute Category: Medical Code(s): E11.9 - Type 2 diabetes mellitus without complications - Assessment and plan all Dx Assessment and Plan for all problems:: OK for discharge now, will plan office f/u in 1 week.
--- NOTE | 2018-08-28 19:59 | Discharge Summary ---
General - General Admission date:: 08/28/18 Discharge date: 08/28/18 HPI HPI: Mr. 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 He was brought to the [facility] emergency room for evaluation by his granddaughter. He states that he went [place] that lasted for about 2 hours. He became short of breath and was without his oxygen and duo nebs. He went home at which time his granddaughter brought him to the emergency room for unresolved shortness of breath. He had minimal cough. He states that he felt fine prior to this. He did feel his heart beat faster but denies any chest pain. With evaluation in the emergency room he was given a DuoNeb treatment and Solu- Medrol. He was noted to be in atrial fibrillation. He was admitted for further observation and treatment. This a.m. he does feel fine. He states he is breathing as usual. He is wearing oxygen. He denies chest pain. He has completed his breakfast and enjoyed. Hospital Course Hospital Course: The patient was started on IV Rocephin, scheduled duo nebs, scheduled IV Solu- Medrol and home medicines. The patient's CXR showed COPD and mild CHF. He began breathing much better after receiving antibiotics and Lasix and wanted to go home. He was stable to be discharged home on antibiotics and will f/u in the office of [facility]. Objective Vital signs: Temp Pulse Resp BP Pulse Ox 98.5 F 77 19 155/81 H 92 L 08/28/18 11:27 08/28/18 15:31 08/28/18 15:31 08/28/18 15:31 08/28/18 15:31 Narrative: - Constitutional no acute distress Comments: Sitting on the bedside and appears comfortable. He is wearing his oxygen - *Routine HEENT Exam Head: Present: normocephalic, atraumatic Eye: Present: PERRL. Absent: conjunctival icterus, scleral injection ENT: Present: mucous membranes moist, nares patent - *Routine Neck Exam Present: supple. Absent: carotid bruit, lymphadenopathy, thyromegaly - *Routine Respiratory Exam Present: decreased breath sounds (Posteriorly), prolonged expiratory phase - *Routine Cardiovascular Exam Present: irregular rhythm (Monitor showing atrial fibrillation with controlled ventricular response) - *Routine Abdominal Exam Present: soft, normoactive bowel sounds. Absent: tenderness - *Routine Extremities Exam Absent: edema, calf tenderness - *Routine Neurological Exam Present: alert, oriented X3 Results Labs on day of discharge: Labs from last 24 hours 08/28/18 08/28/18 08/28/18 07:45 04:15 04:15 WBC 8.7 RBC 4.08 L Hgb 12.0 L Hct 38.5 L MCV 94.6 H MCH 29.5 MCHC 31.2 L RDW 16.1 Plt Count 149 MPV 10.5 H Neut % (Auto) 87.3 H Lymph % (Auto) 9.5 L [place] % (Auto) 2.9 Eos % (Auto) 0.2 Baso % (Auto) 0.2 Neut # (Auto) 7.6 Lymph # (Auto) 0.8 [place] # (Auto) 0.3 Eos # (Auto) 0.0 Baso # (Auto) 0.0 Total Counted 100 Neutrophils % (Manual) 94 H Lymphocytes % (Manual) 5 L Monocytes % (Manual) 1 L Platelet Estimate Normal Anisocytosis 1+ Ovalocytes 1+ Stomatocytes 1+ Sodium 139 Potassium 3.9 Chloride 103 Carbon Dioxide 26 Anion Gap 13.9 BUN 21 H Creatinine 1.61 H Estimated Creat Clear 44 Estimated GFR 42 L Est GFR ( Amer) 50 L Glucose 220 H Lactate Calcium 9.0 Magnesium 2.0 Total Bilirubin AST ALT Alkaline Phosphatase Troponin I < 0.02 < 0.02 Total Protein Albumin Globulin Albumin/Globulin Ratio Influenza Type A Ag Influenza Type B Ag 08/28/18 08/27/18 08/27/18 03:00 22:53 22:53 WBC RBC Hgb Hct MCV MCH MCHC RDW Plt Count MPV Neut % (Auto) Lymph % (Auto) [place] % (Auto) Eos % (Auto) Baso % (Auto) Neut # (Auto) Lymph # (Auto) [place] # (Auto) Eos # (Auto) Baso # (Auto) Total Counted Neutrophils % (Manual) Lymphocytes % (Manual) Monocytes % (Manual) Platelet Estimate Anisocytosis Ovalocytes Stomatocytes Sodium 140 Potassium 3.8 Chloride 101 Carbon Dioxide 27 Anion Gap 15.8 H BUN 21 H Creatinine 1.75 H Estimated Creat Clear 45 Estimated GFR 38 L Est GFR ( Amer) 46 L Glucose 184 H Lactate 1.1 2.1 H Calcium 9.1 Magnesium Total Bilirubin 1.8 H AST 17 ALT 25 Alkaline Phosphatase 118 H Troponin I < 0.02 Total Protein 7.6 Albumin 3.8 Globulin 3.8 H Albumin/Globulin Ratio 1.0 L Influenza Type A Ag Influenza Type B Ag 08/27/18 08/27/18 22:53 22:50 WBC 9.9 RBC 4.24 L Hgb 12.5 L Hct 39.7 L MCV 93.6 MCH 29.5 MCHC 31.5 L RDW 16.0 Plt Count 150 MPV 10.4 Neut % (Auto) 74.1 Lymph % (Auto) 17.1 [place] % (Auto) 7.2 Eos % (Auto) 1.3 Baso % (Auto) 0.3 Neut # (Auto) 7.4 Lymph # (Auto) 1.7 [place] # (Auto) 0.7 Eos # (Auto) 0.1 Baso # (Auto) 0.0 Total Counted Neutrophils % (Manual) Lymphocytes % (Manual) Monocytes % (Manual) Platelet Estimate Anisocytosis Ovalocytes Stomatocytes Sodium Potassium Chloride Carbon Dioxide Anion Gap BUN Creatinine Estimated Creat Clear Estimated GFR Est GFR ( Amer) Glucose Lactate Calcium Magnesium Total Bilirubin AST ALT Alkaline Phosphatase Troponin I Total Protein Albumin Globulin Albumin/Globulin Ratio Influenza Type A Ag Negative Influenza Type B Ag Negative DS: Diagnosis - Discharge Diagnosis (1) Acute exacerbation of chronic obstructive airways disease Status: Acute (2) A-fib Status: Chronic (3) Renal insufficiency Status: Chronic (4) CAD (coronary artery disease) Status: Chronic (5) COPD (chronic obstructive pulmonary disease) Status: Chronic (6) DM2 (diabetes mellitus, type 2) Status: Acute Discharge Plan - Patient Discharge Instructions ACTIVITY: Continue current activity DIET: continue same diet Patient Instructions: DI for Chronic Obstructive Pulmonary Disease - Follow up Plan Follow up with: Colby Quan MD [Primary Care Provider] - 1 week Disposition: Home, Self-Fci Medications: Home Medications Medication Instructions Recorded Confirmed Type Aspirin [Aspir 81] 81 mg PO DAILY 09/10/17 08/27/18 History Atorvastatin Calcium [Lipitor 80mg 80 mg PO HS 09/10/17 08/27/18 History Tablet] Carvedilol [Carvedilol 25mg Tab] 25 mg PO BID 09/10/17 08/27/18 History Esomeprazole Magnesium [Nexium] 40 mg PO DAILY 09/10/17 08/27/18 History Gabapentin [Gabapentin 300mg Cap] 300 mg PO TID 09/10/17 08/27/18 History Tamsulosin HCl [Flomax 0.4mg 0.4 mg PO DAILY 09/10/17 08/27/18 History capsule] furosemide 20 mg tablet 20 mg PO DAILY 12/19/17 08/28/18 History lisinopril 20 mg tablet 20 mg PO BID 12/19/17 08/28/18 History amlodipine 2.5 mg tablet 2.5 mg PO DAILY tab 01/09/18 08/27/18 History apixaban 5 mg tablet 5 mg PO BID 01/29/18 08/27/18 History albuterol sulfate HFA 90 2 puff INHALATION QID 03/26/18 08/28/18 History mcg/actuation aerosol inhaler Azithromycin [Zithromax 500mg Tab 500 mg PO DAILY #3 tab 08/28/18 Rx [facility]] Cefdinir [Omnicef 300mg Capsule] 600 mg PO DAILY #10 cap 08/28/18 Rx Umeclidinium Brm/Vilanterol Tr 1 puff IH DAILY 08/28/18 08/28/18 History [Anoro Ellipta 62.5-25 Mcg INH] Prescriptions/Medication Reconciliation: New Cefdinir [Omnicef 300mg Capsule] 600 mg PO DAILY #10 cap Azithromycin [Zithromax 500mg Tab [facility]] 500 mg PO DAILY #3 tab Continue lisinopril 20 mg tablet 20 mg PO BID furosemide 20 mg tablet 20 mg PO DAILY amlodipine 2.5 mg tablet 2.5 mg PO DAILY tab apixaban 5 mg tablet 5 mg PO BID albuterol sulfate HFA 90 mcg/actuation aerosol inhaler 2 puff INHALATION QID Carvedilol [Carvedilol 25mg Tab] 25 mg PO BID Tamsulosin HCl [Flomax 0.4mg capsule] 0.4 mg PO DAILY Gabapentin [Gabapentin 300mg Cap] 300 mg PO TID Esomeprazole Magnesium [Nexium] 40 mg PO DAILY Aspirin [Aspir 81] 81 mg PO DAILY Umeclidinium Brm/Vilanterol Tr [Anoro Ellipta 62.5-25 Mcg INH] 1 puff IH DAILY Atorvastatin Calcium [Lipitor 80mg Tablet] 80 mg PO HS
== END 2018-08-28 17:21 | disposition home or self-care (01) ==
LOC: ER 22:30 → 2ND 08-28 00:45 → INTOOBSV 08-28 01:50 → 2ND 08-28 01:51
PROVIDERS: ADMIT Family Medicine; ATTEND Family Medicine
CPT/HCPCS: 36415; 71020; 71046; 80048; 80053; 83605; 83735; 84484; 85007; 85025; 87040; 87070; 87077; 87186; 87205; 87275; 87276; 93005; 94640; 96365; 96375; 99284; G0378; J0456

== ENCOUNTER → 2019-02-19 14:56 | Outpatient (CLI) | payer MEDICARE, MEDICAID, SELFPAY | PROVIDERS: Visit Provider Urology | DX: Z12.5 Encounter for screening for malignant neoplasm of prostate (principal); N40.1 Benign prostatic hyperplasia with lower urinary tract symptoms | CPT/HCPCS: 36415; G0103 ==

== ENCOUNTER 2020-01-18 20:53 | Emergency (ER) | payer MEDICARE, OTHER, SELFPAY ==
[2020-01-18 21:05] VITALS: BP 199/77; PULSE 63; RESP 16; TEMP 36.7; O2SAT 96; BMI 29.8
--- NOTE | 2020-01-18 21:14 | XR_ITS ---
PROCEDURE: XR CHEST 2V CLINICAL HISTORY: wheezing And COPD COMPARISON: CHESTWO CT chest wo con from 04/19/2018 CXR2V XR chest 2V from 08/27/2018 XR CHEST 2V from 05/25/2019 XR CHEST PORTABLE from 08/24/2019 FINDINGS: Mild emphysematous changes are noted with mild hyperexpansion lung trejo. Chronic and likely post inflammatory changes are seen in both lung bases. There is a stable oval opacity left midlung field which may relate present post inflammatory pleural scarring but has been stable in appearance dating back to films from July 2018. Cardiac size is normal, there is very mild vascular congestion. There is mild thickening of the major and minor fissures. IMPRESSION: Chronic basilar changes along mild pulmonary congestion suggesting possibility of very early congestive failure Dictated by: Dr. Quang Luna MD 01/19/2020 08:[address] Quang Luna MD in [place] 01/19/2020 08:12
[2020-01-18 21:30] VITALS: BP 168/74; PULSE 60; RESP 18; O2SAT 96
[2020-01-18 21:48] LABS: Basophils % 0.4 % (0.1-2.0); Eosinophils # 0.2 K/mm3 (0.0-0.4); Eosinophils % 3.2 % (0.1-12.0); Hematocrit 34.9 % (42.0-52.0); Hemoglobin 11.3 g/dL (14.1-18.0); Lymphocytes # 2.2 K/mm3 (0.7-4.5); Lymphocytes % 30.2 % (10-50); Mean Corpuscular HGB Conc 32.5 g/dL (31.8-35.4); Mean Corpuscular Volume 92.5 fl (80-94); Mean Platelet Volume 10.2 fl (7.4-10.4); Monocytes # 0.5 K/mm3 (0.1-1.0); Monocytes % 6.8 % (1.7-9.3); Neutrophils # 4.4 K/mm3 (1.8-7.8); Neutrophils % 59.5 % (37.0-80.0); Platelet Count 174 K/mm3 (142-424); Red Blood Count 3.78 M/mm3 (4.60-6.20); Red Cell Distribution Width 15.5 % (11.5-17.5); White Blood Count 7.4 K/mm3 (4.8-10.8)
--- NOTE | 2020-01-18 21:56 | HMH.EDSOB ---
ED Disposition Clinical Impression: Acute exacerbation of chronic obstructive airways disease, Renal insufficiency DM2 (diabetes mellitus, type 2) Qualifiers: Diabetes mellitus custodial insulin use: with medical imaging tech use Diabetes mellitus complication status: with other specified complication Qualified Code(s): E11.69 - Type 2 diabetes mellitus with other specified complication; Z79.4 - halfway (current) use of insulin Congestive heart failure Qualifiers: Heart failure type: diastolic Heart failure chronicity: acute on chronic Qualified Code(s): I50.33 - Acute on chronic diastolic (congestive) heart failure Disposition: Home, Self-Care Condition on Discharge: Good Instructions: DI for Chronic Obstructive Pulmonary Disease Additional Instructions: capp pcp monday and see card at 899 am Prescriptions: Furosemide [Lasix 20mg tab] 20 mg PO DAILY #5 tab Transmission Status: Pending to [facility][id number] Referrals: Colby Quan MD [Primary Care Provider] - - Critical Care Critical Care Time: No Attestation: On 01/18/20, the high probability of a clinically significant, sudden or life threatening deterioration of the following system(s) required my full and direct attention, intervention and personal management. The time I documented below is in addition to time spent performing reported procedures but includes the following listed in this critical care notation. Medical Decision Making - Medical Records Medical records reviewed: Yes: I reviewed the patient's medical records. - Han Inquiry Pt receiving controlled substance: No Vital Signs: 01/18/20 21:05 01/18/20 21:30 01/18/20 22:00 Temperature 98.1 F Temperature Source Oral Pulse Rate Pulse Rate [Right Brachial] 63 60 62 Respiratory Rate 16 18 18 Blood Pressure [Right Arm] 199/77 H 168/74 H 178/77 H Blood Pressure Mean [Right Arm] 117 105 110 Blood Pressure Source [Right Arm] Automatic Cuff Blood Pressure Position [Right Arm] Sitting 02 Sat by Pulse Oximetry 96 96 97 Oxygen Delivery Method Room Air Room Air Room Air 01/18/20 22:30 01/18/20 22:48 01/18/20 23:10 Temperature Temperature Source Pulse Rate 84 Pulse Rate [Right Brachial] 66 64 Respiratory Rate 18 18 Blood Pressure [Right Arm] 180/71 H 177/69 H Blood Pressure Mean [Right Arm] 107 105 Blood Pressure Source [Right Arm] Blood Pressure Position [Right Arm] 02 Sat by Pulse Oximetry 95 96 Oxygen Delivery Method Room Air Room Air - Lab Data Lab results reviewed: Yes: I reviewed the patient's lab results. Lab Results 01/18/20 21:30: WBC 7.4, RBC 3.78 L, Hgb 11.3 L, Hct 34.9 L, MCV 92.5, MCH 30.0, MCHC 32.5, RDW 15.5, Plt Count 174, MPV 10.2, Neut % (Auto) 59.5, Lymph % (Auto) 30.2, [place] % (Auto) 6.8, Eos % (Auto) 3.2, Baso % (Auto) 0.4, Neut # (Auto) 4.4, Lymph # (Auto) 2.2, [place] # (Auto) 0.5, Eos # (Auto) 0.2, Baso # (Auto) 0.0 01/18/20 21:30: Sodium 138, Potassium 4.2, Chloride 101, Carbon Dioxide 28, Anion Gap 13.2, BUN 14, Creatinine 1.30 H, Estimated Creat Clear 54, Estimated GFR 53 L, Est GFR ( Amer) 64, Glucose 198 H, Calcium 9.2, Total Bilirubin 1.5 H, AST 33, ALT 23, Alkaline Phosphatase 92, Total Protein 7.8, Albumin 4.6, Globulin 3.2, Albumin/Globulin Ratio 1.4, TSH 5.95 H, Thyroxine (T4) 7.5 01/18/20 21:30: NT-Pro-B Natriuret Pep 1890 H 01/18/20 21:30: Troponin I < 0.01 Result diagrams: 01/18/20 21:30 01/18/20 21:30 Orders (Tests/Meds): ED MEDICATIONS Discontinued Medications Generic Name Dose Route Start Last Admin Trade Name Freq PRN Reason Stop Dose Admin Albuterol/Ipratropium 3 ml 01/18/20 22:32 01/18/20 22:48 Duoneb 3ml Neb IH 01/18/20 22:33 3 ml ONCE ONE Administration Furosemide 40 mg 01/18/20 22:32 01/18/20 22:38 Lasix 40mg/4ml Vial IV 01/18/20 22:33 40 mg ONCE ONE Administration Methylprednisolone Sodium Succinate 125 mg 01/18/20 22:31 01/18/20 22:37 SabinoDe
[2020-01-18 21:59] LABS: Alanine Aminotransferase 23 U/L (12-78); Albumin Level 4.6 g/dl (3.5-5.0); Albumin/Globulin Ratio 1.4 (1.1-1.8); Alkaline Phosphatase 92 U/L (38-126); Anion Gap 13.2 mEq/L (5-15); Aspartate Amino Transferase 33 U/L (17-59); Bilirubin,Total 1.5 mg/dl (0.2-1.3); Blood Urea Nitrogen 14 mg/dl (9-20); Calcium 9.2 mg/dl (8.4-10.2); Carbon Dioxide 28 mmol/L (22.0-30.0); Chloride 101 mmol/L (98-107); Creatinine Clearance Estimated 54 mL/min (50-200); Estimated Glomerular Filt Rate 53 ml/min (>60); GFR (African American) 64 ML/MIN (>60); Globulin 3.2 g/dL (1.3-3.2); Glucose 198 mg/dl (74-100); Potassium 4.2 mmoL/L (3.5-5.1); Sodium 138 mmol/L (136-145); Total Protein,Serum 7.8 g/dl (6.3-8.2)
[2020-01-18 22:00] VITALS: BP 178/77; PULSE 62; RESP 18; O2SAT 97
[2020-01-18 22:09] LABS: NT Pro Brain Natriuretic Pep. 1890 pg/mL (0-450)
[2020-01-18 22:16] LABS: T4 (Thyroxine) 7.5 ug/dl (5.53-11.0)
[2020-01-18 22:30] VITALS: BP 180/71; PULSE 66; RESP 18; O2SAT 95
[2020-01-18 22:30] LABS: Thyroid Stimulating Hormone 5.95 uIU/mL (0.465-4.68)
[2020-01-18 22:31] LABS: Troponin I < 0.01 ng/ml (0.00-0.034)
[2020-01-18 22:48] VITALS: PULSE 84; PULSE 87
[2020-01-18 23:10] VITALS: BP 177/69; PULSE 64; RESP 18; O2SAT 96
[2020-01-19] VITALS: BP 169/73; PULSE 79; RESP 17; TEMP 36.6; O2SAT 98
== END 2020-01-19 00:06 | disposition home or self-care (01) ==
PROVIDERS: Emergency Provider Emergency Medicine; PCP Family Medicine
DX: J44.9 Chronic obstructive pulmonary disease, unspecified (principal); N28.9 Disorder of kidney and ureter, unspecified; E11.69 Type 2 diabetes mellitus with other specified complication; I50.33 Acute on chronic diastolic (congestive) heart failure; Z79.4 Long term (current) use of insulin; Z79.84 Long term (current) use of oral hypoglycemic drugs; K21.9 Gastro-esophageal reflux disease without esophagitis; E78.5 Hyperlipidemia, unspecified; I48.20 Chronic atrial fibrillation, unspecified; Z88.0 Allergy status to penicillin
CPT/HCPCS: 71046; 80053; 83880; 84436; 84443; 84484; 85025; 96374; 96375; 99284

== ENCOUNTER → 2020-01-23 11:56 | Outpatient (CLI) | payer MEDICARE, OTHER, SELFPAY ==
--- NOTE | 2020-01-23 | CA_ITS ---
APPROVED REPORT Exam: Pharmacologic Technologist: Paulette Lundberg, Ht: 5 ft 6 in Wt: 180 lbs BSA: 1.91 m2 HR: 67 bpm BP: 125/89 mmHg Rhythm: A-FIB,CANNOT R/O OLD SEPTAL ID,ST-T ABNORMALITIES INFERIORLY AND LATERALLY. Medical History Medical History: HTN, Hyperlipidemia, Diabetic ??? Noninsulin Medications: Amlodipine,,,,, Lisinopril,,,,, Omeprazole,,,,, Asa,,,,, Metformin,,,,, Atorvastatin,,,,, Carvedilol,,,,, Lasix,,,,, TAMSULOSIN,,,,, Allergies: PCN Cardiac Risk Factors: HTN, Hyperlipidemia, Diabetes (non-insulin), FHX of CAD Stress Test Details Test: LEXISCAN HR Resting HR: 76 bpm Max Heart Rate (APMHR): 140 bpm Max HR Achieved: 94 bpm Target HR (85% APMHR): 119 bpm % of APMHR: 67 BP Resting BP: 125/89 mmHg Max BP: 130/58 mmHg BP response to stress: Normal blood pressure response to stress. ECG Clinical Exercise duration: 06:34 min Highest Stage Achieved: Stress ECG Conclusion DURING INFUSION OF LEXISCAN PATIENT HAD MILD SOA,NAUSEA AND MALAISE. OCCASIONAL PVC VS ABERRANT BEAT. MILD EXAGGERATION OF BASELINE ST-T ABNORMALITIES. UNREMARKABLE LEXISCAN. MYOIEW IMAGES REPORTED SEPARATELY. Electronically signed by : Carlos Fraga, 02/03/2020 19:53:18
--- NOTE | 2020-01-23 11:56 | NM_ITS ---
APPROVED REPORT Exam: Nuclear Stress Test Indication: chest pain..FATIGUE Patient Location: Outpatient Stress Tech: Carissa Murdocknkson [place] Tech:MAIRA Valencia RT(R)(N) Ht: 5 ft 6 in Wt: 1802 lbs HR: 67 bpm BP: 125/89 mmHg BSA: 5.09 m2 BMI: 290.8 History: chest pain..FATIGUE Procedure: Patient received a 0.4 mg of intravenous Lexiscan, resting heart rate 67 bpm, resting blood pressure 125/89 mmHg, with Lexiscan maximum heart rate achived was 79 bpm which is Less than 85 % of the maximum predicted heart rate and blood pressure was 122/56 mmHg. Electrocardiogram Resting electrocardiogram shows atrial fibrillation, with Lexiscan there is additional millimeter ST segment depression noted from the baseline EKG. The EKG portion of the Lexiscan Myoview is nondiagnostic due to baseline abnormal EKG. Cardiac Stress and Resting SPECT Images: Cardiac Stress and Resting SPECT images were obtained using technetium 99m Myoview 30.8 mCi stress and 10.71 mCi at rest. Gated SPECT for analysis of segmental wall motion and calculation of the ejection fraction also done. Cardiac stress and resting SPECT images show a partial reversible defect involving the inferior and anteroseptal wall raising the concerns for presence of mixed ischemia and scar. Computer derived ejection fraction is 61% with anteroseptal and inferior wall mild hypokinesis. Right ventricle is normal size and contractility. Conclusion: 1. The EKG portion of the Lexiscan Myoview is nondiagnostic. 2. Scintigraphic evidence of mixed ischemia and scar involving the anteroseptal and inferior wall, computer derived ejection fraction 61% with segmental wall motion abnormality described above, right ventricle is normal size and contractility. 3. Likely abnormal Lexiscan Myoview study. Electronically signed by : Carlos Fraga, 01/23/2020 15:26:19
--- NOTE | 2020-01-23 13:34 | CA_ITS ---
APPROVED REPORT EXAM: Comprehensive 2D, Doppler, and color-flow Echocardiogram Kier Drier: Sherley Perez RDCS Ht: 5 ft 6 in Wt: 187lbs BSA: 1.94 BP: 140/52 mmHg Indications: CP,SOA,AF 2D Dimensions LVOT 2.04 cm (M/F) 1.5-2.5 M-Mode Dimensions RVDd 2.50 cm (0.9-2.6) LVDd 4.38 cm (3.5-5.7) LVDs 3.13 cm (3.5-5.7) IVSd 1.48 cm (0.6-1.1) PWd 1.03 cm (0.6-1.1) EF (Teich) 55.30% FS 28.50% EDV (Teich) 86.80 mL ESV (Teich) 38.80 mL LV Diastology E/A Ratio 3.05 Mitral Valve MV A Velocity 31.00 (40-130 cm/s) Left Ventricle Left atrium is qualitatively moderately enlarged, left ventricle is normal size, mild concentric left ventricular hypertrophy, fraction 55% with no regional wall motion abnormality. Diastolic parameters are inconclusive. Right Ventricle Right atrium and right ventricular normal size and contractility. Aortic Valve Aortic valve is thickened and calcified leaflet chordae display good mobility, there is no aortic stenosis aortic insufficiency. Mitral Valve Mitral valve leaflets are minimally thickened, there is no mitral stenosis, there is mild mitral regurgitation. Tricuspid Valve Tricuspid valve is grossly normal, there is mild tricuspid regurgitation, tricuspid regurgitation jet velocity is inadequate for calculation of the right ventricular systolic pressure. Pulmonic Valve Pulmonic valve is minimally thickened and fibrosed, there is no pulmonic stenosis, there is mild pulmonic insufficiency. Great Vessels Aortic root is normal size. Pericardium No significant pericardial effusion noted. Conclusion 1. Moderately enlarged left atrium, normal left ventricular size, mild concentric left ventricular hypertrophy, visually estimated ejection fraction 55% with no regional wall motion abnormality, diastolic parameters are inconclusive. 2. Thickened and calcified aortic valve without aortic stenosis or aortic insufficiency. 3. Mild mitral, mild tricuspid and pulmonic insufficiency. 4. No significant pericardial effusion noted. Electronically signed by : Carlos Fraga, 01/23/2020 15:02:01
--- NOTE | 2020-01-23 14:20 | HMH.ITSHM ---
Current Home Medications as stated by this patient Guevara Kim or community health representative. [] atorvastatin tamsulosin carvedilol asp amlodipine esomeprazole lisinopril metformin furosemide
== END ==
PROVIDERS: PCP Family Medicine; Visit Provider Urology
DX: E11.69 Type 2 diabetes mellitus with other specified complication (principal); G45.9 Transient cerebral ischemic attack, unspecified; I25.119 Atherosclerotic heart disease of native coronary artery with unspecified angina pectoris; I70.1 Atherosclerosis of renal artery; J44.9 Chronic obstructive pulmonary disease, unspecified; R06.00 Dyspnea, unspecified; R07.89 Other chest pain; R60.9 Edema, unspecified; Z79.84 Long term (current) use of oral hypoglycemic drugs; I48.20 Chronic atrial fibrillation, unspecified
CPT/HCPCS: 78452; 93017; 93306; A9502; J2785

== ENCOUNTER 2020-02-05 08:20 | Day surgery (SDC) | payer MEDICARE, OTHER, SELFPAY ==
[2020-02-05] VITALS (13 sets, daily range): BP systolic 125–205; BP diastolic 54–86; PULSE 50–76; RESP 16; TEMP 36.4; O2SAT 90–97; BMI 29.7
--- NOTE | 2020-02-05 | IR_ITS ---
APPROVED REPORT Patient Location: Outpatient Poultry Picker: MAIRA Warner RT (R) PROCEDURES Left heart catheterization Left ventriculogram Selective coronary angiogram Drug-eluting stent deployment to the ostial dominant right coronary artery preceded by drug-eluting stent deployment to the distal dominant right coronary INDICATION Abnormal Myoview, Coronary artery disease, Angina pectoris Informed consent was obtained prior to the procedure. COMPLICATIONS None Estimated Blood Loss: less than 10ml TECHNIQUE One percent lidocaine used to anesthetize the right anterior aspect of the wrist. The right radial artery was accessed via the Seldinger technique. A 6 Urdu sheath was placed in the right radial artery. 2.5 mg of verapamil, 800 mcg of nitroglycerin, 1mg Lidocaine and 5000 U Heparin were given through the arterial sheath. The trap catheter was also used to perform left heart catheterization, left ventriculogram and selective coronary angiogram. At the end of the diagnostic procedure additional heparin was administered giving a therapeutic ACT. And I Madonna right guide catheter was used to intubate the right coronary artery and a Choice PT floppy wire was placed distally. Upon engagement of the 6 Urdu catheter patient's heart rate dropped into the 40s with a ventricular escape. The catheter was pulled out of the ostium and left in the right coronary cusp. A 2.75 x 12 mm resolute eric stent was deployed at 19 kashif in the distal right coronary artery reducing the eccentric stenosis to 0%. A 4 mm x 8 mm drug-eluting stent was placed in the ostium and deployed at 24 kashif in order to post dilate. Initially a 5 mm balloon was placed at the end of the catheter however this was never inflated in the stent after further reviewing the angiogram and feeling the stent was adequately opposed to the ostium. Closing ACT was 239 therefore additional heparin was administered. At the end of the procedure the apparatus was removed the sheath was removed good hemostasis was achieved using TR banding patient was transferred to the postop holding her in stable condition ANGIOGRAPHIC RESULTS The left main artery Normal The left anterior descending artery Has a stent in the proximal segment widely patent free of in-stent restenosis with excellent proximal distal transitioning. There is additional 10 to 20% mid vessel stenoses. A large first diagonal artery originates within the proximal LAD stent which has an ostial 70% stenosis this is a 2.75 mm vessel The circumflex artery Is a nondominant vessel with a 30 to 40% stenosis and a 2.75 mm first obtuse marginal artery The right coronary artery Is a dominant vessel and has an ostial 70% stenosis followed by long proximal 40% stenosis with a distal eccentric 80% stenosis proximal to the PDA and posterior lateral branch The HYATT ventriculogram reveals Preserved 60% The left ventricular end-diastolic pressure 15 mmHg IMPRESSION Coronary disease as described above Successful stenting of the ostial dominant right coronary artery and distal dominant right coronary Preserved ejection fraction Persistent severe stenosis in a large first diagonal artery Persistent moderate stenosis as described above PLAN 1. Dual antiplatelet therapy 2. LDL less than 55 3. Cardiac rehabilitation 4. Avoidance of tobacco products 5. Unless patient develops recalcitrant angina pectoris I recommend treating the diagonal artery medically. The stent in the ostial proximal LAD is widely patent. Placing a bifurcating stent increases the likelihood of complications within the LAD itself. This diagonal artery is perfect for medical management and should respond appropr
[2020-02-05 09:12] LABS: Basophils % 0.4 % (0.1-2.0); Eosinophils # 0.2 K/mm3 (0.0-0.4); Eosinophils % 2.7 % (0.1-12.0); Hematocrit 38.1 % (42.0-52.0); Hemoglobin 12.6 g/dL (14.1-18.0); Lymphocytes # 2.3 K/mm3 (0.7-4.5); Lymphocytes % 26.7 % (10-50); Mean Corpuscular HGB Conc 33.1 g/dL (31.8-35.4); Mean Corpuscular Hemoglobin 30.1 pg (27.0-31.2); Mean Corpuscular Volume 91.2 fl (80-94); Mean Platelet Volume 10.1 fl (7.4-10.4); Monocytes # 0.6 K/mm3 (0.1-1.0); Monocytes % 6.6 % (1.7-9.3); Neutrophils # 5.6 K/mm3 (1.8-7.8); Neutrophils % 63.6 % (37.0-80.0); Platelet Count 188 K/mm3 (142-424); Red Blood Count 4.18 M/mm3 (4.60-6.20); Red Cell Distribution Width 15.4 % (11.5-17.5); White Blood Count 8.8 K/mm3 (4.8-10.8)
[2020-02-05 09:16] LABS: Chloride 102 mmol/L (98-107); Potassium 4.2 mmoL/L (3.5-5.1); Sodium 142 mmol/L (136-145)
[2020-02-05 09:19] LABS: Anion Gap 13.2 mEq/L (5-15); Blood Urea Nitrogen 14 mg/dl (9-20); Carbon Dioxide 31 mmol/L (22.0-30.0); Creatinine Clearance Estimated 54 mL/min (50-200); Estimated Glomerular Filt Rate 53 ml/min (>60); GFR (African American) 64 ML/MIN (>60)
[2020-02-05 09:20] LABS: Calcium 9.2 mg/dl (8.4-10.2); Glucose 149 mg/dl (74-100)
[2020-02-05 14:16] LABS: CATHL Activated Clotting Time 239 SEC (74-125)
--- NOTE | 2020-02-05 14:26 | HMH.PHACLD ---
Guevara Kim has received discharge medication counseling on the following medications: PLAVIX 75MG. THIS WAS SENT TO [facility]. PATIENT IS TAKING ALL OTHER REQUIRED MEDICATIONS. PATIENT VERBALIZED UNDERSTANDING AND HAD NO QUESTIONS AT THIS TIME. -DEEDEE GONZALEZ, MEDARDOD
== END 2020-02-05 14:56 | disposition home or self-care (01) ==
PROVIDERS: PCP Family Medicine; Visit Provider Internal Medicine
DX: I25.118 Atherosclerotic heart disease of native coronary artery with other forms of angina pectoris (principal); Z95.5 Presence of coronary angioplasty implant and graft; I50.22 Chronic systolic (congestive) heart failure; I11.0 Hypertensive heart disease with heart failure; J44.9 Chronic obstructive pulmonary disease, unspecified; I70.213 Atherosclerosis of native arteries of extremities with intermittent claudication, bilateral legs; Z95.820 Peripheral vascular angioplasty status with implants and grafts; E03.9 Hypothyroidism, unspecified; I48.91 Unspecified atrial fibrillation; E11.9 Type 2 diabetes mellitus without complications; Z79.84 Long term (current) use of oral hypoglycemic drugs; Z88.0 Allergy status to penicillin; Z79.01 Long term (current) use 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s; Z79.899 Other long term (current) drug therapy; Z87.891 Personal history of nicotine dependence
CPT/HCPCS: 80048; 85025; 85347; 92928; 93458; 99152; 99153; C1725; C1769; C1876; C9600; J1644; Q9967

== ENCOUNTER → 2020-02-12 08:18 | Outpatient (CLI) | payer MEDICARE, OTHER, SELFPAY ==
[2020-02-12 08:38] LABS: Chloride 101 mmol/L (98-107); Potassium 4.6 mmoL/L (3.5-5.1); Sodium 140 mmol/L (136-145)
[2020-02-12 08:39] LABS: Basophils % 0.3 % (0.1-2.0); Eosinophils # 0.2 K/mm3 (0.0-0.4); Eosinophils % 2.6 % (0.1-12.0); Hematocrit 37.2 % (42.0-52.0); Lymphocytes # 2.4 K/mm3 (0.7-4.5); Lymphocytes % 29.3 % (10-50); Mean Corpuscular HGB Conc 32.1 g/dL (31.8-35.4); Mean Corpuscular Hemoglobin 29.2 pg (27.0-31.2); Mean Corpuscular Volume 90.8 fl (80-94); Mean Platelet Volume 10.2 fl (7.4-10.4); Monocytes # 0.5 K/mm3 (0.1-1.0); Monocytes % 6.4 % (1.7-9.3); Neutrophils % 61.5 % (37.0-80.0); Platelet Count 181 K/mm3 (142-424); Red Cell Distribution Width 15.5 % (11.5-17.5); White Blood Count 8.1 K/mm3 (4.8-10.8)
[2020-02-12 08:41] LABS: Blood Urea Nitrogen 16 mg/dl (9-20); Estimated Glomerular Filt Rate 49 ml/min (>60); GFR (African American) 59 ML/MIN (>60)
[2020-02-12 08:42] LABS: Anion Gap 16.6 mEq/L (5-15); Calcium 8.9 mg/dl (8.4-10.2); Carbon Dioxide 27 mmol/L (22.0-30.0); Glucose 150 mg/dl (74-100)
== END ==
PROVIDERS: Visit Provider Internal Medicine
DX: I25.10 Atherosclerotic heart disease of native coronary artery without angina pectoris (principal)
CPT/HCPCS: 36415; 80048; 85025

== ENCOUNTER → 2020-05-05 15:13 | Outpatient (CLI) | payer MEDICARE, OTHER, SELFPAY ==
[2020-05-05 17:35] LABS: Prostate Specific Ag Screen 0.9 ng/ml (0.0-4.0)
== END ==
PROVIDERS: Visit Provider Urology
DX: Z12.5 Encounter for screening for malignant neoplasm of prostate (principal)
CPT/HCPCS: 36415; G0103

== ENCOUNTER → 2020-05-07 09:59 | Outpatient (CLI) | payer MEDICARE, OTHER, SELFPAY ==
[2020-05-07 12:41] LABS: Coronavirus 19 IgG Antibody Negative (Negative); Coronavirus 19 IgM Antibody Negative (Negative)
== END ==
PROVIDERS: Visit Provider Urology
DX: R39.198 Other difficulties with micturition (principal); Z01.89 Encounter for other specified special examinations
CPT/HCPCS: 36415; 86328

== ENCOUNTER 2020-05-08 01:32 | Inpatient (IN) | payer OTHER, MEDICARE, SELFPAY ==
[2020-05-08] VITALS (18 sets, daily range): BP systolic 92–146; BP diastolic 51–83; PULSE 57–80; RESP 16–27; TEMP 36.6–36.8; O2SAT 76–99; BMI 29.0; BMI 34.2; BMI 29.6; BMI 29.7
--- NOTE | 2020-05-08 01:31 | ECG_ITS ---
APPROVED REPORT Exam: Resting ECG HR:61 bpm ECG Measurements Heart Rate 61 AXES QRSd 94 QRS -43 QT 448 T 116 QTc 450 Conclusion Atrial fibrillation Left axis deviation Late r wave progression Abnormal ECG Electronically signed by : Rikki Stewart, 05/08/2020 13:41:44
--- NOTE | 2020-05-08 01:36 | XR_ITS ---
PROCEDURE: XR CHEST PORTABLE CLINICAL HISTORY: shortness of air COMPARISON: CT CHESTWO CT chest wo con from 04/19/2018 CR XR CHEST 2V from 05/25/2019 CR XR CHEST PORTABLE from 08/24/2019 CR XR CHEST 2V from 01/18/2020 FINDINGS: There is mild prominence of the cardiomediastinal silhouette not significantly changed. There is bilateral consolidation in the mid and lower lung zones right greater than left with some sparing of the apices. No large effusions No acute bony abnormalities. IMPRESSION: Bilateral airspace disease right greater than left consistent with bilateral pneumonia Dictated by: Claudio Alamo MD 05/08/2020 04:34 Claudio Alamo MD in OV 05/08/2020 04:34
[2020-05-08 01:49] LABS: ABG Base Excess -8.7 mmol/L (-2.4-2.3); ABG HCO3 20.2 mmhg (22.0-26.0); ABG Oxygen Saturation 91 % (90-100); ABG PO2 81.9 mmhg (80-100)
[2020-05-08 01:50] LABS: Basophils # 0.1 K/mm3 (0-0.2); Basophils % 0.4 % (0.1-2.0); Eosinophils # 0.2 K/mm3 (0.0-0.4); Eosinophils % 1.6 % (0.1-12.0); Hematocrit 35.7 % (42.0-52.0); Hemoglobin 10.4 g/dL (14.1-18.0); Lymphocytes # 1.8 K/mm3 (0.7-4.5); Lymphocytes % 15.1 % (10-50); Mean Corpuscular HGB Conc 29.1 g/dL (31.8-35.4); Mean Corpuscular Hemoglobin 27.2 pg (27.0-31.2); Mean Corpuscular Volume 93.6 fl (80-94); Monocytes % 8.2 % (1.7-9.3); Neutrophils % 74.7 % (37.0-80.0); Platelet Count 261 K/mm3 (142-424); Red Blood Count 3.81 M/mm3 (4.60-6.20); Red Cell Distribution Width 15.7 % (11.5-17.5)
[2020-05-08 01:51] LABS: Allen's Test Acceptable; Source Left Radial
[2020-05-08 01:52] LABS: ABG PCO2 59.8 mmhg (35.0-45.0); ABG PH 7.15 mmol/L (7.35-7.45)
--- NOTE | 2020-05-08 01:52 | PC.NURSE ---
aware of blood gas
[2020-05-08 01:55] LABS: Blood Urea Nitrogen 22 mg/dl (9-20); Calcium 9.3 mg/dl (8.4-10.2); Carbon Dioxide 25 mmol/L (22.0-30.0); Estimated Glomerular Filt Rate 45 ml/min (>60); GFR (African American) 54 ML/MIN (>60); Glucose 230 mg/dl (74-100)
[2020-05-08 02:08] LABS: NT Pro Brain Natriuretic Pep. 3820 pg/mL (0-450)
[2020-05-08 02:19] LABS: Creatinine Clearance Estimated 45 mL/min (50-200); Troponin I < 0.01 ng/ml (0.00-0.034)
[2020-05-08 02:26] LABS: Anion Gap 16.6 mEq/L (5-15); Chloride 107 mmol/L (98-107); Potassium 4.6 mmoL/L (3.5-5.1); Sodium 144 mmol/L (136-145)
--- NOTE | 2020-05-08 03:16 | HMH.EDCP ---
ED Disposition Clinical Impression: Respiratory acidosis, Overweight (BMI 25.0-29.9), SIRS (systemic inflammatory response syndrome) Community acquired pneumonia Qualifiers: Laterality: right Lung location: lower lobe of lung Qualified Code(s): J18.9 - Pneumonia, unspecified organism COPD (chronic obstructive pulmonary disease) Qualifiers: COPD type: COPD with acute exacerbation Qualified Code(s): J44.1 - Chronic obstructive pulmonary disease with (acute) exacerbation DM2 (diabetes mellitus, type 2) Qualifiers: Diabetes mellitus fretted instruments inspector insulin use: unspecified usp insulin use status Diabetes mellitus complication status: with other specified complication Qualified Code(s): E11.69 - Type 2 diabetes mellitus with other specified complication A-fib Qualifiers: Atrial fibrillation type: longstanding persistent Qualified Code(s): I48.11 - Longstanding persistent atrial fibrillation Congestive heart failure Qualifiers: Heart failure type: unspecified Heart failure chronicity: acute on chronic Qualified Code(s): I50.9 - Heart failure, unspecified Respiratory failure Qualifiers: Chronicity: acute on chronic Respiratory failure complication: hypercapnia Qualified Code(s): J96.22 - Acute and chronic respiratory failure with hypercapnia Anemia Qualifiers: Anemia type: unspecified type Qualified Code(s): D64.9 - Anemia, unspecified Disposition: Admitted As Inpatient Condition on Discharge: Fair Referrals: Colby Quan MD [Primary Care Provider] - - Critical Care Critical Care Time: No Attestation: On 05/08/20, the high probability of a clinically significant, sudden or life threatening deterioration of the following system(s) required my full and direct attention, intervention and personal management. The time I documented below is in addition to time spent performing reported procedures but includes the following listed in this critical care notation. Medical Decision Making - Medical Records Medical records reviewed: Yes: I reviewed the patient's medical records. - Han Inquiry Pt receiving controlled substance: No Vital Signs: 05/08/20 01:35 05/08/20 01:40 05/08/20 03:06 Temperature 97.9 F Temperature Source Oral Pulse Rate [Right Radial] 61 64 Respiratory Rate 27 H 18 Blood Pressure [Right Arm] 129/65 109/51 L Blood Pressure Mean [Right Arm] 86 70 Blood Pressure Source [Right Arm] Automatic Cuff Blood Pressure Position [Right Arm] Supine 02 Sat by Pulse Oximetry 76 L 92 L 97 Oxygen Delivery Method Room Air Nasal Cannula Nasal Cannula Oxygen Flow Rate (LPM) 4 2 - Lab Data Lab results reviewed: Yes: I reviewed the patient's lab results. Lab Results 05/08/20 01:35: WBC 12.0 H, RBC 3.81 L, Hgb 10.4 L, Hct 35.7 L, MCV 93.6, MCH 27.2, MCHC 29.1 L, RDW 15.7, Plt Count 261, MPV 10.0, Neut % (Auto) 74.7, Lymph % (Auto) 15.1, [place] % (Auto) 8.2, Eos % (Auto) 1.6, Baso % (Auto) 0.4, Neut # (Auto) 9.0 H, Lymph # (Auto) 1.8, [place] # (Auto) 1.0, Eos # (Auto) 0.2, Baso # (Auto) 0.1 05/08/20 01:35: Sodium 144, Potassium 4.6, Chloride 107, Carbon Dioxide 25, Anion Gap 16.6 H, BUN 22 H, Creatinine 1.50 H, Estimated Creat Clear 45, Estimated GFR 45 L, Est GFR ( Amer) 54 L, Glucose 230 H, Calcium 9.3, Troponin I < 0.01, NT-Pro-B Natriuret Pep 3820 H 05/08/20 01:36: Specimen Source Left radial, O2 % 4lpm nc, 36%, ABG pH 7.15 L*, ABG pCO2 59.8 H, ABG pO2 81.9, ABG HCO3 20.2 L, ABG Total CO2 22.0 L, ABG O2 Saturation 91, ABG Base Excess -8.7 L, Claudio Test Acceptable Result diagrams: 05/08/20 01:35 05/08/20 01:35 Orders (Tests/Meds): ED MEDICATIONS Discontinued Medications Generic Name Dose Route Start Last Admin Trade Name Jeramy PRN Reason Stop Dose Admin Albuterol/Ipratropium 3 ml 05/08/20 01:39 05/08/20 01:48 Albuterol/Ipratropium 3 Ml Neb IH 05/08/20 01:40 3 ml ONCE ONE Administration Aspirin 325 mg 05/08/20 01:39 05/08/20 01:49 Aspirin 325mg Tablet PO
[2020-05-08 03:33] LABS: Lactic Acid 1.6 mmol/L (0.7-2.1)
--- NOTE | 2020-05-08 03:36 | PC.NURSE ---
RT applying vapotherm at this time
--- NOTE | 2020-05-08 03:36 | PC.NURSE ---
speaking with Dr. Walton
--- NOTE | 2020-05-08 03:40 | PC.NURSE ---
patient assigned to 215
[2020-05-08 03:52] LABS: Coronavirus 19 IgG Antibody Positive (Negative); Coronavirus 19 IgM Antibody Negative (Negative)
--- NOTE | 2020-05-08 05:07 | PC.NURSE ---
called lab about wait time left on COVID swab. lab stated COVID swab was just now being put on the analyzer
[2020-05-08 06:04] LABS: Troponin I < 0.01 ng/ml (0.00-0.034)
--- NOTE | 2020-05-08 07:27 | PC.NURSE ---
report called to floor
--- NOTE | 2020-05-08 07:30 | PC.NURSE ---
dr khan office called and let message informed of pt's admission to ed.
--- NOTE | 2020-05-08 08:00 | CA_ITS ---
APPROVED REPORT EXAM: Comprehensive 2D, Doppler, and color-flow Echocardiogram Zigzag Elastic Attacher: Clementine Scott RT(R) Ht: 5 ft 6 in Wt: 180lbs BSA: 1.91 BP: 109/51 mmHg Indications: PNEUMONIA,COPD,CHRONIC AF 2D Dimensions LVOT 1.84 cm (M/F) 1.5-2.5 M-Mode Dimensions RVDd 3.52 cm (0.9-2.6) LVDd 4.80 cm (3.5-5.7) LVDs 3.52 cm (3.5-5.7) IVSd 1.23 cm (0.6-1.1) PWd 0.89 cm (0.6-1.1) EF (Teich) 52.00% FS 26.70% EDV (Teich) 107.50 mL ESV (Teich) 51.60 mL Aortic Valve LVOT Max 81.00 (70-110 cm/s) LVOT VTI 19.63 cm Left Ventricle Left atrium is mildly enlarged, left ventricle is normal size, mild concentric left ventricular hypertrophy, visually estimated ejection fraction 55% with no regional wall motion abnormality, diastolic parameters are inconclusive. Right Ventricle Right atrium is moderately enlarged, right ventricle is mildly dilated with normal contractility. Aortic Valve Aortic valve is thickened and calcified leaflet chordae display good mobility, there is no aortic stenosis or aortic insufficiency. Mitral Valve Mitral valve leaflets are minimally thickened, there is mild mitral regurgitation. Tricuspid Valve Tricuspid valve is grossly normal, there is mild tricuspid regurgitation, tricuspid regurgitation jet velocity is inadequate for calculation of the right ventricular systolic pressure. Pulmonic Valve Pulmonic valve is poorly visualized. Great Vessels Aortic root is normal size. Pericardium No significant pericardial effusion noted. Conclusion 1. Biatrial enlargement, normal left ventricular size, mild concentric left ventricular hypertrophy, visually estimated ejection fraction 55% with no regional wall motion abnormality, diastolic parameters are inconclusive. 2. Mildly enlarged right ventricle with normal contractility. 3. Mild mitral and tricuspid regurgitation. 4. No significant pericardial effusion noted. Electronically signed by : Carlos Fraga, 05/08/2020 12:01:55
[2020-05-08 09:05] LABS: Troponin I < 0.01 ng/ml (0.00-0.034)
--- NOTE | 2020-05-08 09:32 | HMH.PHAVTE ---
[facility] Pharmacy VTE Monitoring - Patient Demographics Admission date: 05/08/20 Report Date: 05/08/20 Time: 09:32 Allergies/Adverse Reactions: Patient Allergies Penicillins Allergy (Verified 05/06/20 10:42) Height: 1.65 m Weight: 80.796 kg Patient Problems: Current Active Problems Respiratory acidosis (Acute) COPD (chronic obstructive pulmonary disease) (Chronic) Congestive heart failure (Acute) A-fib (Chronic) Community acquired pneumonia (Acute) Respiratory failure (Acute) Anemia (Acute) SIRS (systemic inflammatory response syndrome) (Acute) Overweight (BMI 25.0-29.9) (Acute) DM2 (diabetes mellitus, type 2) (Chronic) - VTE Risk Labs: VTE Related Lab Results Hgb 10.4 g/dL (14.1-18.0) L 05/08/20 01:35 Hct 35.7 % (42.0-52.0) L 05/08/20 01:35 Plt Count 261 K/mm3 (142-424) 05/08/20 01:35 BUN 22 mg/dl (9-20) H 05/08/20 01:35 Creatinine 1.50 mg/dl (0.66-1.25) H 05/08/20 01:35 Estimated Creat Clear 45 mL/min (50-200) 05/08/20 01:35 Clinical Trial Participant: No - Prophylaxis VTE Prophylaxis Ordered?: Yes Types of VTE Prophylaxis: TEDS Knee High
--- NOTE | 2020-05-08 09:47 | HMH.HP ---
*Admission Date: 05/08/20 <Verónica Sorensen 05/08/20 09:49> *Chief complaint: Community Acquired Pneumonia <Verónica Sorensen 05/08/20 09:49> *History of present illness: Mr. Kim is an 79yo male with extensive history including DM2, CHF, Afib, COPD, CAD with prior CABG, HTN, GERD, HLP, PAD with bilateral leg artery stenting, BPH, and CRI who uses home oxygen. He presented to the ED overnight after sudden onset of shortness of breath and chest pain radiating into his shoulders and back. He rated the pain at 8 out of 10 and described it as someone sitting on my chest . He denies any preceeding symptoms and states he had been feeling well at home other than dysuria. He has been seen in the office of [facility] recently for BPH and decreased urinary stream and was scheduled to see Dr. Yan this morning. Upon arrival to the ED, he was found to have an elevated WBC at 12.0 with BNP of 3820. EKG showed Afib with non-specific ST-T wave changes. CXR showed bilateral air space disease right greater than left consistent with bilateral pneumonia. He received Zithromax and Rocephin and was placed on Vapotherm. This morning, he is resting in bed without complaint. He denies any cough or chest pain and reports shortness of breath only with activity. His O2 sats have been maintained overnight on Vapotherm. <Verónica Sorensen 05/08/20 11:16> [facility] History Medical History: Reports:: Arrhythmia, Atherosclerotic Heart Disease, Atrial Fibrillation, Congestive Heart Failure, Chronic Obstructive Pulmonary Disease (COPD), Coronary Artery Disease, Diabetes Mellitus Type 2, Gall Bladder Disease, Gastroesophageal Reflux Disease(GERD), Home Oxygen, Hyperlipidemia, Hypertension, Lung Disease, Myocardial Infarction, Palpitations, Peripheral Artery Disease, Peripheral Vascular Disease, Renal Disease, Renal Insufficiency, Transient Ischemic Attacks (TIA), Ulcer, Urinary Tract Infection Denies:: Cancer, Diabetes Mellitus Type 1, Hepatitis, Internal Pacemaker, MRSA, Seizures <Verónica Sorensen 05/08/20 11:16> *Have you ever received a pneumonia vaccine?: No <Verónica Sorensen 05/08/20 09:49> *Have you received a flu vaccine this season?: No <Edu05/08/20 09:49> Other Medical History: Reports: Anemia, Arthritis, Cataracts. Denies: Hypothyroidism, Thyroid Disease <Edu05/08/20 09:49> Laterality Cases: Bilateral: Myringotomy (Ear Tubes) <05/08/20 09:49> Other Surgeries: Yes: Angiogram, CABG, Cardiac Catheterization, Cholecystectomy, Coronary Stent, Ureter Stent, Other. No: Pacemaker <Edu05/08/20 09:49> Amputation: No <05/08/20 09:49> Fractures: No <05/08/20 09:49> - *Social History Smoking Status: Former smoker <Edu05/08/20 09:49> Tobacco Type: cigarettes <05/08/20 09:49> # Packs/Day (cigarettes): 1 <Edu05/08/20 09:49> #Yrs smoked (if former smoker): 20 <Edu05/08/20 09:49> Smoking End Date: 20 years ago <Edu05/08/20 09:49> Alcohol Intake: never <Edu05/08/20 09:49> Alcohol Intake Frequency:: a few times a month <Edu05/08/20 09:49> Substance Use Type: denies use <05/08/20 09:49> *Occupational Status:: retired <Quang Sorensen05/08/20 09:49> Housing: house <Edu05/08/20 09:49> Household Members: children <Edu05/08/20 09:49> *Travel in the last 8 weeks: None <Quang Sorensen05/08/20 09:49> Family Hx:: Cancer, Diabetes, Heart Attack, Stroke, Hyperlipidemia, Hypertension, Coronary Artery Disease <Quang Sorensen05/08/20 09:49> Review of Systems - Constitutional Reports fatigue, Denies chills, Denies fever(s), Denies headache(s) <Verónica Sorensen - 05/08/20 11:16> - Eyes Denies change in vision <Verónica Sorensen - 05/08/20 11:16> - ENT Denies nasal congestion, Denies nasal discharge, Denies sore throat <Verónica Sorensen - 05/08/20 11:16> - *Cardiovascular Reports chest pain, Reports shortness of breath, Denies leg swelling
--- NOTE | 2020-05-08 10:13 | HMH.PHAINT ---
HOME MEDICATION RECONCILIATION COMPLETED USING LIST FROM [facility] OFFICE AND HOME [facility]ARM[facility]
[2020-05-08 11:34] LABS: POC Glucose,Bedside 192 (70-110)
[2020-05-08 16:50] LABS: POC Glucose,Bedside 192 (70-110)
--- NOTE | 2020-05-08 20:25 | PC.NURSE ---
PATIENT A&O X4, LUNGS ARE DIMINISHED, PULSES EQUAL. PATIENT IS NON COMPLIANT ON USING VAPOTHERM. THIS RN HAS EDUCATED PATIENT 3X TO WHY HE NEEDS TO LEAVE THE VAPOTHERM ON. PATIENT VERBALIZED AN UNDERSTANDING WITH EACH EDUCATION. PATIENT HAS BEEN EDUCATED THE IMPORTANCE OF PUSHING THE CALL LIGHT WHEN NEEDING TO GET OUT OF BED. PATIENT SET OFF BED ALARM ON MULTIPLE OCCASIONS. DURING 1600 ADL ROUND, PATIENT WAS DRINKING A 7UP. THIS RN EDUCATED PATIENT IN REGARDS TO DRINKING SUGAR FREE SODA. PATIENT PROCEEDED TO ASK THIS RN IS BUD LIGHT OKAY? THIS RESPONDED WITH A NO DUE TO THE CARBOHYDRATE INTAKE. PATIENT VERBALIZED AN UNDERSTANDING. NO OTHER CONCERNS AT THIS TIME.
--- NOTE | 2020-05-08 20:26 | PC.NURSE ---
RT gave pt neb treatment with sodium chloride to induce sputum. SPT collected and sent to lab from second floor.
[2020-05-08 22:30] LABS: POC Glucose,Bedside 219 (70-110)
[2020-05-09] VITALS (14 sets, daily range): BP systolic 109–148; BP diastolic 58–77; PULSE 56–70; RESP 17–21; TEMP 36.4–37.1; O2SAT 90–98; BMI 29.8
[2020-05-09 02:18] LABS: Microscopic, Urine URINE MICROSCOPIC (MICROSCOPIC)
[2020-05-09 02:20] LABS: Appearance,Urine CLEAR (Clear); Bilirubin,Urine Negative (Negative); Blood, Urine Negative (Negative); Color,Urine YELLOW (Yellow); Glucose,Urine (UA) Negative (Negative); Ketones,Urine Negative (Negative); Leukocyte Esterase,Urine 1+ (Negative); Nitrate,Urine Negative (Negative); Protein,Urine 1+ (Negative); Specific Gravity, Urine 1.025 (1.005-1.030); Urobilinogen,Urine 0.2 EU/dl (0.2)
[2020-05-09 02:23] LABS: WBC,Urine 20-50 #/hpf (0-3)
--- NOTE | 2020-05-09 03:58 | PC.NURSE ---
Pt has slept majority of this shift. Pt has been pleasant this shift, A&O x4. Pt is tolerating vapotherm appropriately at 28 LPM. Continuous pulse ox applied this shift, due to pt being on vapotherm. Inspiratory and expiratory wheezing heard t/o all lung trejo upon auscultation with audible wheezes heard when interacting with pt. Bowel sounds active in all 4 quads, abdomen remains soft and non-tender. Sputum collected once this shift and sent to lab, too much saliva in the sputum cup, so new order placed this shift for sputum collection. Urine specimen collected by staff and sent out to lab. Call light remains in reach. No other acute changes or complaints at this time. Will continue to monitor.
[2020-05-09 06:38] LABS: POC Glucose,Bedside 168 (70-110)
[2020-05-09 06:48] LABS: ABG Base Excess 1.2 mmol/L (-2.4-2.3); ABG HCO3 26.8 mmhg (22.0-26.0); ABG Oxygen Saturation 77 % (90-100); ABG PCO2 49.7 mmhg (35.0-45.0); ABG PH 7.35 mmol/L (7.35-7.45); ABG TCO2 28.3 mmhg (23-27)
[2020-05-09 07:02] LABS: Basophils % 0.1 % (0.1-2.0); Eosinophils % 0.1 % (0.1-12.0); Hemoglobin 9.1 g/dL (14.1-18.0); Lymphocytes # 0.8 K/mm3 (0.7-4.5); Lymphocytes % 8.2 % (10-50); Mean Corpuscular HGB Conc 29.5 g/dL (31.8-35.4); Mean Corpuscular Hemoglobin 27.1 pg (27.0-31.2); Mean Corpuscular Volume 92.1 fl (80-94); Mean Platelet Volume 10.2 fl (7.4-10.4); Monocytes # 0.6 K/mm3 (0.1-1.0); Monocytes % 6.1 % (1.7-9.3); Neutrophils % 85.6 % (37.0-80.0); Platelet Count 228 K/mm3 (142-424); Red Blood Count 3.37 M/mm3 (4.60-6.20); White Blood Count 9.4 K/mm3 (4.8-10.8)
[2020-05-09 07:04] LABS: MANUAL DIFFERENTIAL MANUAL DIFFERENTIAL (MANUAL DIFF)
[2020-05-09 07:10] LABS: Chloride 108 mmol/L (98-107); Potassium 4.6 mmoL/L (3.5-5.1); Sodium 144 mmol/L (136-145)
[2020-05-09 07:13] LABS: Anion Gap 11.6 mEq/L (5-15); Blood Urea Nitrogen 33 mg/dl (9-20); Calcium 9.3 mg/dl (8.4-10.2); Carbon Dioxide 29 mmol/L (22.0-30.0); Creatinine Clearance Estimated 48 mL/min (50-200); Estimated Glomerular Filt Rate 49 ml/min (>60); GFR (African American) 59 ML/MIN (>60); Glucose 174 mg/dl (74-100)
--- NOTE | 2020-05-09 08:33 | PC.NURSE ---
Pt able to cough sputum up. RT obtained sputum and walked to lab at 8:27
[2020-05-09 08:35] LABS: Allen's Test Acceptable; Source Right Radial
--- NOTE | 2020-05-09 08:38 | PC.NURSE ---
Pt's ABG was venous. Spoke with , plan to wean pt off vapotherm today.
--- NOTE | 2020-05-09 08:41 | HMH.ACPN2 ---
Internal Medicine - PN: Subj *Date: 05/09/20 *Time: 08:41 Interval history: Patient states he feels better today Exam Vital signs and Labs for Last 24 Hours: Temp Pulse Resp BP Pulse Ox 98.0 F 56 L 19 130/60 93 L 05/09/20 07:51 05/09/20 07:51 05/09/20 07:51 05/09/20 07:51 05/09/20 07:51 Laboratory Results - last 24 hr 05/08/20 08:23: Troponin I < 0.01 05/08/20 11:14: POC Glucose 192 H 05/08/20 16:37: POC Glucose 192 H 05/08/20 20:20: POC Glucose 219 H 05/09/20 02:00: Urine Color Yellow, Urine Appearance Clear, Urine pH 6.0, Ur Specific [place] 1.025, Urine Protein 1+, Urine Glucose (UA) Negative, Urine Ketones Negative, Urine Blood Negative, Urine Nitrate Negative, Urine Bilirubin Negative, Urine Urobilinogen 0.2, Ur Leukocyte Esterase 1+ A, Urine WBC 20-50 05/09/20 06:00: Specimen Source Right radial, O2 % vapotherm 28% 40l, ABG pH 7.35, ABG pCO2 49.7 H, ABG pO2 46.0 L, ABG HCO3 26.8 H, ABG Total CO2 28.3 H, ABG O2 Saturation 77 L*, ABG Base Excess 1.2, Claudio Test Acceptable 05/09/20 06:01: POC Glucose 168 H 05/09/20 06:31: WBC 9.4, RBC 3.37 L, Hgb 9.1 L, Hct 31.0 L, MCV 92.1, MCH 27.1, MCHC 29.5 L, RDW 16.0, Plt Count 228, MPV 10.2, Neut % (Auto) 85.6 H, Lymph % (Auto) 8.2 L, [place] % (Auto) 6.1, Eos % (Auto) 0.1, Baso % (Auto) 0.1, Neut # (Auto) 8.0 H, Lymph # (Auto) 0.8, [place] # (Auto) 0.6, Eos # (Auto) 0.0, Baso # (Auto) 0.0 05/09/20 06:31: Sodium 144, Potassium 4.6, Chloride 108 H, Carbon Dioxide 29, Anion Gap 11.6, BUN 33 H D, Creatinine 1.40 H, Estimated Creat Clear 48, Estimated GFR 49 L, Est GFR ( Amer) 59, Glucose 174 H, Calcium 9.3 I & O for Last 24 hours: Intake & Output 05/06/20 05/07/20 05/08/20 05/09/20 23:59 23:59 23:59 23:59 Intake Total 600 / 600 360 / 360 Output Total 200 / 200 500 / 500 Balance 400 / 400 -140 / -140 Weight 178 lb 9.191 oz 179 lb Microbiology Reports for the Last 24 Hours: Microbiology 05/08/20 18:00 Sputum - Expectorated Sputum Gram Stain - Final 05/08/20 18:00 Sputum - Expectorated Sputum Sputum Culture - Final 05/08/20 04:10 Nasopharyngeal Coronavirus COVID-19 PCR - Final - Constitutional no acute distress - *Routine HEENT Exam Head: Present: normocephalic Eye: Present: EOMI ENT: Present: mucous membranes moist - *Routine Neck Exam Present: supple. Absent: lymphadenopathy - *Routine Respiratory Exam Present: decreased breath sounds (bases), wheezes (occasional) - *Routine Cardiovascular Exam Present: RRR - *Routine Abdominal Exam Present: soft, normoactive bowel sounds. Absent: tenderness - *Routine Extremities Exam Absent: cyanosis, clubbing, edema - *Routine Skin Exam Present: warm. Absent: rash - *Routine Neurological Exam Present: alert, oriented X3 Assessment and Plan (1) Anemia Status: Acute Qualifiers: Anemia type: unspecified type Qualified Code(s): D64.9 - Anemia, unspecified Category: Medical Code(s): D64.9 - Anemia, unspecified (2) Community acquired pneumonia Status: Acute Qualifiers: Laterality: right Lung location: lower lobe of lung Qualified Code(s): J18.9 - Pneumonia, unspecified organism Category: Medical Code(s): J18.9 - Pneumonia, unspecified organism (3) Congestive heart failure Status: Acute Qualifiers: Heart failure type: unspecified Heart failure chronicity: acute on chronic Qualified Code(s): I50.9 - Heart failure, unspecified Category: Medical Code(s): I50.9 - Heart failure, unspecified (4) Overweight (BMI 25.0-29.9) Status: Acute Category: Medical Code(s): E66.3 - Overweight (5) Respiratory acidosis Status: Acute Category: Medical Code(s): E87.2 - Acidosis (6) Respiratory failure Status: Acute Qualifiers: Chronicity: acute on chronic Respiratory failure complication: hypercapnia Qualified Code(s): J96.22 - Acute and chronic respiratory failure with hypercapnia Category: Medical Code(s):
[2020-05-09 08:56] LABS: Anisocytosis 1+; Hypochromasia 1+; Lymphocytes % 5 % (10-50); Monocytes % 2 % (2-9); Neutrophils % 93 % (42-76); Platelet Estimate Normal; Total Cells Counted 100
[2020-05-09 11:36] LABS: POC Glucose,Bedside 120 (70-110)
[2020-05-09 16:54] LABS: POC Glucose,Bedside 129 (70-110)
[2020-05-09 20:41] LABS: POC Glucose,Bedside 152 (70-110)
[2020-05-10] VITALS (12 sets, daily range): BP systolic 126–172; BP diastolic 59–77; PULSE 52–73; RESP 17–22; TEMP 36.6–37; O2SAT 87–93; BMI 29.7
--- NOTE | 2020-05-10 04:50 | PC.NURSE ---
Pt has rested well this shift. PIV in RAC was pulled out while pt showered this evening. New 20 g PIV placed in pt's Lt wrist. Pt has tolerated 2 L nc appropriately this shift. Sats remain 90-92% this shift. Expiratory wheezing heard in BL lung bases. Pt has urinated clear, dark yellow urine this shift. Call light remains in reach. No other acute changes or complaints at this time. Will continue to monitor.
[2020-05-10 06:37] LABS: POC Glucose,Bedside 181 (70-110)
--- NOTE | 2020-05-10 06:39 | PC.NURSE ---
Pt yelled out for help from room. This nurse came into pt's room and saw that pt had taken off NC and was audibly wheezing. Pt stated I cant breathe . NC reapplied. O2 SAT read 74% on datascope. O2 increased to 3 L, after one min O2 SAT read 80. O2 increased to 4L, O2 SAT then read 85%. RT paged. RT increased o2 to 5 L, pt's SAT @ 85%. MD Quan paged. Duoneb ordered. RT administered duoneb. Wheezing decreased and pt SAT @ 99%. O2 decreased to 3.5 L, O2 SAT currently at 93%. Pt is resting in bed and has no c/o of SOB. Will continue to monitor.
[2020-05-10 07:12] LABS: Basophils % 0.3 % (0.1-2.0); Eosinophils # 0.1 K/mm3 (0.0-0.4); Eosinophils % 0.8 % (0.1-12.0); Hematocrit 34.3 % (42.0-52.0); Lymphocytes # 1.3 K/mm3 (0.7-4.5); Lymphocytes % 10.9 % (10-50); Mean Corpuscular Hemoglobin 27.2 pg (27.0-31.2); Mean Corpuscular Volume 93.7 fl (80-94); Mean Platelet Volume 9.6 fl (7.4-10.4); Monocytes # 0.8 K/mm3 (0.1-1.0); Neutrophils # 9.5 K/mm3 (1.8-7.8); Neutrophils % 80.9 % (37.0-80.0); Platelet Count 226 K/mm3 (142-424); Red Blood Count 3.67 M/mm3 (4.60-6.20); Red Cell Distribution Width 15.7 % (11.5-17.5); White Blood Count 11.8 K/mm3 (4.8-10.8)
[2020-05-10 07:23] LABS: Anion Gap 12.6 mEq/L (5-15); Blood Urea Nitrogen 43 mg/dl (9-20); Calcium 9.3 mg/dl (8.4-10.2); Carbon Dioxide 30 mmol/L (22.0-30.0); Chloride 109 mmol/L (98-107); Creatinine Clearance Estimated 48 mL/min (50-200); Estimated Glomerular Filt Rate 49 ml/min (>60); GFR (African American) 59 ML/MIN (>60); Glucose 160 mg/dl (74-100); Potassium 4.6 mmoL/L (3.5-5.1); Sodium 147 mmol/L (136-145)
--- NOTE | 2020-05-10 09:46 | HMH.ACPN2 ---
Internal Medicine - PN: Subj *Date: 05/10/20 *Time: 09:46 Interval history: Patient had an episode of shortness of breath and hypoxia overnight. Symptoms improved with a duoneb treatment. He has no new complaints today. Exam Vital signs and Labs for Last 24 Hours: Temp Pulse Resp BP Pulse Ox 97.9 F 72 17 127/59 L 93 L 05/10/20 08:00 05/10/20 08:00 05/10/20 08:00 05/10/20 08:00 05/10/20 08:00 Laboratory Results - last 24 hr 05/09/20 11:26: POC Glucose 120 H 05/09/20 16:43: POC Glucose 129 H 05/09/20 20:19: POC Glucose 152 H 05/10/20 05:37: POC Glucose 181 H 05/10/20 06:50: WBC 11.8 H D, RBC 3.67 L, Hgb 10.0 L, Hct 34.3 L, MCV 93.7, MCH 27.2, MCHC 29.0 L, RDW 15.7, Plt Count 226, MPV 9.6, Neut % (Auto) 80.9 H, Lymph % (Auto) 10.9, [place] % (Auto) 7.0, Eos % (Auto) 0.8, Baso % (Auto) 0.3, Neut # (Auto) 9.5 H, Lymph # (Auto) 1.3, [place] # (Auto) 0.8, Eos # (Auto) 0.1, Baso # (Auto) 0.0 05/10/20 06:50: Sodium 147 H, Potassium 4.6, Chloride 109 H, Carbon Dioxide 30, Anion Gap 12.6, BUN 43 H D, Creatinine 1.40 H, Estimated Creat Clear 48, Estimated GFR 49 L, Est GFR ( Amer) 59, Glucose 160 H, Calcium 9.3 Vital Signs - 24 hr 05/09/20 10:31 05/09/20 11:20 05/09/20 13:18 Temperature 97.5 F L Pulse Rate Pulse Rate [Right Radial] 66 Respiratory Rate 18 Blood Pressure [Left Arm] Blood Pressure [Right Arm] 127/77 02 Sat by Pulse Oximetry 96 97 95 05/09/20 15:36 05/09/20 20:00 05/10/20 00:00 Temperature 98.1 F 97.8 F 97.8 F Pulse Rate Pulse Rate [Right Radial] 65 70 68 Respiratory Rate 17 21 22 Blood Pressure [Left Arm] 148/61 H Blood Pressure [Right Arm] 147/63 H 126/64 02 Sat by Pulse Oximetry 92 L 90 L 90 L 05/10/20 04:00 05/10/20 05:54 05/10/20 06:01 Temperature 97.8 F Pulse Rate 67 Pulse Rate [Right Radial] 54 L Respiratory Rate 20 Blood Pressure [Left Arm] Blood Pressure [Right Arm] 130/68 02 Sat by Pulse Oximetry 92 L 87 L 93 L 05/10/20 08:00 Temperature 97.9 F Pulse Rate Pulse Rate [Right Radial] 72 Respiratory Rate 17 Blood Pressure [Left Arm] 127/59 L Blood Pressure [Right Arm] 02 Sat by Pulse Oximetry 93 L I & O for Last 24 hours: Intake & Output 05/07/20 05/08/20 05/09/20 05/10/20 23:59 23:59 23:59 23:59 Intake Total 600 / 600 1210 / 1330 120 / 120 Output Total 200 / 200 850 / 850 Balance 400 / 400 360 / 480 120 / 120 Weight 178 lb 9.191 oz 179 lb 178 lb 6 oz Microbiology Reports for the Last 24 Hours: Microbiology 05/09/20 08:27 Sputum - Expectorated Sputum Gram Stain - Final 05/09/20 08:27 Sputum - Expectorated Sputum Sputum Culture - Preliminary 05/09/20 02:00 Urine,Clean Catch Urine Culture - Preliminary 05/08/20 02:50 Blood Blood Culture - Preliminary NO GROWTH AFTER 48 HOURS 05/08/20 02:50 Blood Blood Culture - Preliminary NO GROWTH AFTER 48 HOURS - Constitutional no acute distress - *Routine HEENT Exam Head: Present: normocephalic Eye: Present: EOMI ENT: Present: mucous membranes moist - *Routine Neck Exam Present: supple. Absent: lymphadenopathy - *Routine Respiratory Exam Present: decreased breath sounds (in the bases), wheezes (occasional) - *Routine Cardiovascular Exam Present: RRR - *Routine Abdominal Exam Present: soft, normoactive bowel sounds. Absent: tenderness - *Routine Extremities Exam Absent: cyanosis, clubbing, edema - *Routine Skin Exam Present: warm. Absent: rash - *Routine Neurological Exam Present: alert, oriented X3 Assessment and Plan (1) Anemia Status: Acute Qualifiers: Anemia type: unspecified type Qualified Code(s): D64.9 - Anemia, unspecified Category: Medical Code(s): D64.9 - Anemia, unspecified (2) Community acquired pneumonia Status: Acute Qualifiers: Laterality: right Lung location: lower lobe of lung Qualified Code(s): J18.9 - Pneumonia, unspecifi
[2020-05-10 11:24] LABS: POC Glucose,Bedside 102 (70-110)
[2020-05-10 16:35] LABS: POC Glucose,Bedside 138 (70-110)
--- NOTE | 2020-05-10 18:53 | PC.NURSE ---
Pt with audible wheezing today requiring prn Albuterol nebs x 2. Is also getting scheduled Duonebs TID. Wheezing is new since yesterday. Has a productive cough. Is A&Ox4. Can ambulate to bathroom with standy assist. Received a shower this morning.
[2020-05-10 20:54] LABS: POC Glucose,Bedside 129 (70-110)
[2020-05-11] VITALS (20 sets, daily range): BP systolic 108–156; BP diastolic 46–87; PULSE 63–77; RESP 17–26; TEMP 36.5–36.9; O2SAT 77–99; BMI 30.2
--- NOTE | 2020-05-11 00:44 | PC.NURSE ---
0015- FOUND PT. SLEEPING WITH O2 NC OFF; O2 SAT 73%. REAPPLIED O2 HAD PT. DEEP BREATH, COUGH AND REPOSITIONED; O2 SAT 77%. PT. C/O SOA AND EXHIBITED LABORED BREATHING. AUDIBLE EXPIRATORY WHEEZES NOTED. INCREASED O2 NC TO 4.5L. 0016- NOTIFIED RT TO ADMINISTER PRN ALBUTEROL PER SEP. RR: 24 HR: 70 0027- INCREASED O2 TO 5L NC WITH O2 SAT 77-78% 0035- ALBUTEROL TX ADMINISTERED, O2 SAT 80-82% AT THIS TIME 0040- NOTIFIED MD GISELA OF ABOVE. NEW ORDER: ABG STAT 0048- RT OBTAINING ABG AT THIS TIME
[2020-05-11 00:59] LABS: ABG Base Excess -1.7 mmol/L (-2.4-2.3); ABG HCO3 26.2 mmhg (22.0-26.0); ABG Oxygen Saturation 77 % (90-100); ABG PH 7.21 mmol/L (7.35-7.45); ABG PO2 53.5 mmhg (80-100); ABG TCO2 28.3 mmhg (23-27)
[2020-05-11 01:00] LABS: Allen's Test Y; Oxygen 5 %; Source L/R
[2020-05-11 01:01] LABS: ABG PCO2 67.9 mmhg (35.0-45.0)
--- NOTE | 2020-05-11 01:16 | PC.NURSE ---
NOTIFIED MD GISELA OF ABG RESULTS. NEW ORDERS: PLACE ON VAPOTHERM AND ADVANCE TO BIPAP IF O2 SAT DOES NOT REACH 90%. NOTIFIED RT AT THIS TIME OF NEW ORDERS.
--- NOTE | 2020-05-11 01:24 | PC.NURSE ---
Patient's nurse notified of low level.
--- NOTE | 2020-05-11 01:29 | PC.NURSE ---
PLACED ON VAPOTHERM AT THIS TIME; O2 SAT: 73%
--- NOTE | 2020-05-11 01:55 | PC.NURSE ---
RT PLACING PT. ON BIPAP AT THIS TIME
--- NOTE | 2020-05-11 03:56 | PC.NURSE ---
O2 SAT 89-90% ON BIPAP AT THIS TIME
[2020-05-11 05:35] LABS: POC Glucose,Bedside 166 (70-110)
[2020-05-11 05:55] LABS: Basophils % 0.1 % (0.1-2.0); Eosinophils % 0.4 % (0.1-12.0); Hematocrit 29.5 % (42.0-52.0); Hemoglobin 8.7 g/dL (14.1-18.0); Lymphocytes # 0.8 K/mm3 (0.7-4.5); Lymphocytes % 8.1 % (10-50); Mean Corpuscular HGB Conc 29.5 g/dL (31.8-35.4); Mean Corpuscular Hemoglobin 27.5 pg (27.0-31.2); Mean Corpuscular Volume 93.3 fl (80-94); Mean Platelet Volume 10.7 fl (7.4-10.4); Monocytes # 0.9 K/mm3 (0.1-1.0); Monocytes % 8.3 % (1.7-9.3); Neutrophils # 8.5 K/mm3 (1.8-7.8); Platelet Count 184 K/mm3 (142-424); Red Blood Count 3.16 M/mm3 (4.60-6.20); Red Cell Distribution Width 15.6 % (11.5-17.5); White Blood Count 10.3 K/mm3 (4.8-10.8)
[2020-05-11 06:06] LABS: Anion Gap 11.6 mEq/L (5-15); Blood Urea Nitrogen 40 mg/dl (9-20); Carbon Dioxide 30 mmol/L (22.0-30.0); Chloride 107 mmol/L (98-107); Creatinine Clearance Estimated 57 mL/min (50-200); Estimated Glomerular Filt Rate 58 ml/min (>60); GFR (African American) 70 ML/MIN (>60); Glucose 163 mg/dl (74-100); Potassium 4.6 mmoL/L (3.5-5.1); Sodium 144 mmol/L (136-145)
--- NOTE | 2020-05-11 07:30 | XR_ITS ---
PROCEDURE: XR CHEST PORTABLE CLINICAL HISTORY: follow up pneumonia COMPARISON: CT CHESTWO CT chest wo con from 04/19/2018 CR XR CHEST PORTABLE from 08/24/2019 CR XR CHEST 2V from 01/18/2020 CR XR CHEST PORTABLE from 05/08/2020 FINDINGS: Borderline cardiomegaly. Hiatal hernia. There is some prominence of the interstitium. Right upper and right lower lobe pneumonia has shown some improvement. Left lower lobe pneumonia unchanged to slightly worse. There may be a mild element of CHF as well which is shown some improvement. IMPRESSION: Bilateral pneumonia slightly improved on the right and slightly worse in the left lung base with mild CHF slightly improved Dictated by: Claudio Alamo MD 05/11/2020 08:16 Claudio Alamo MD in [place] 05/11/2020 08:16
--- NOTE | 2020-05-11 07:58 | HMH.ACPN2 ---
<Ana Garcia - Last Filed: 05/11/20 08:18> Internal Medicine - PN: Subj *Date: 05/11/20 *Time: 08:18 Interval history: Events of the evening and night reviewed per notes and per nursing. He was placed on BiPAP around 2 AM. He is rested well since then. Was able to awaken him and he responded that he was breathing okay. He remains on BiPAP this a.m. This a.m. white blood cell count is 10,300 with a drop in hemoglobin of 8.7 and hematocrit of 29.5. Before BiPAP ABGs revealed a pH of 7.21 PCO2 of 67.9 PO2 of 53.5 and a bicarb of 26.2. Blood chemistries show normal electrolytes with a BUN of 40 and creatinine of 1.2. Cultures are pending Repeat chest x-ray shows bilateral pneumonia slightly improved on the right and Slightly worse In the left lung base with mild CHF slightly improved Exam Vital signs and Labs for Last 24 Hours: Temp Pulse Resp BP Pulse Ox 97.7 F 68 22 138/56 L 92 L 05/11/20 04:00 05/11/20 06:39 05/11/20 04:00 05/11/20 04:00 05/11/20 04:00 Laboratory Results - last 24 hr 05/10/20 11:14: POC Glucose 102 05/10/20 16:27: POC Glucose 138 H 05/10/20 20:15: POC Glucose 129 H 05/11/20 00:58: Specimen Source L/r, O2 % 5, ABG pH 7.21 L*, ABG pCO2 67.9 H, ABG pO2 53.5 L, ABG HCO3 26.2 H, ABG Total CO2 28.3 H, ABG O2 Saturation 77 L*, ABG Base Excess -1.7, Claudio Test Y 05/11/20 05:27: POC Glucose 166 H 05/11/20 05:44: WBC 10.3, RBC 3.16 L, Hgb 8.7 L D, Hct 29.5 L, MCV 93.3, MCH 27.5, MCHC 29.5 L, RDW 15.6, Plt Count 184, MPV 10.7 H, Neut % (Auto) 83.0 H, Lymph % (Auto) 8.1 L, [place] % (Auto) 8.3, Eos % (Auto) 0.4, Baso % (Auto) 0.1, Neut # (Auto) 8.5 H, Lymph # (Auto) 0.8, [place] # (Auto) 0.9, Eos # (Auto) 0.0, Baso # (Auto) 0.0 05/11/20 05:44: Sodium 144, Potassium 4.6, Chloride 107, Carbon Dioxide 30, Anion Gap 11.6, BUN 40 H, Creatinine 1.20, Estimated Creat Clear 57, Estimated GFR 58 L, Est GFR ( Amer) 70, Glucose 163 H, Calcium 9.0 I & O for Last 24 hours: Intake & Output 05/08/20 05/09/20 05/10/20 05/11/20 11:59 11:59 11:59 11:59 Intake Total 960 / 960 1210 / 1450 480 / 480 Output Total 700 / 700 350 / 350 100 / 100 Balance 260 / 260 860 / 1100 380 / 380 Weight 178 lb 2 oz 179 lb 178 lb 6 oz 181 lb 7 oz Microbiology Reports for the Last 24 Hours: Microbiology 05/09/20 08:27 Sputum - Expectorated Sputum Gram Stain - Final 05/09/20 08:27 Sputum - Expectorated Sputum Sputum Culture - Preliminary 05/09/20 02:00 Urine,Clean Catch Urine Culture - Preliminary - Constitutional no acute distress - *Routine Respiratory Exam Present: other Comments: Some audible wheezes anteriorly - *Routine Cardiovascular Exam Present: RRR - *Routine Abdominal Exam Present: soft, normoactive bowel sounds, distended. Absent: tenderness - *Routine Extremities Exam Absent: edema - *Routine Neurological Exam Does answer questions with yes or no. Assessment and Plan (1) Anemia Status: Acute Qualifiers: Anemia type: unspecified type Qualified Code(s): D64.9 - Anemia, unspecified Category: Medical Code(s): D64.9 - Anemia, unspecified (2) Community acquired pneumonia Status: Acute Qualifiers: Laterality: right Lung location: lower lobe of lung Qualified Code(s): J18.9 - Pneumonia, unspecified organism Category: Medical Code(s): J18.9 - Pneumonia, unspecified organism (3) Congestive heart failure Status: Acute Qualifiers: Heart failure type: unspecified Heart failure chronicity: acute on chronic Qualified Code(s): I50.9 - Heart failure, unspecified Category: Medical Code(s): I50.9 - Heart failure, unspecified (4) Overweight (BMI 25.0-29.9) Status: Acute Category: Medical Code(s): E66.3 - Overweight (5) Respiratory acidosis Status: Acute Category: Medical Code(s): E87.2 - Acidosis (6) Respiratory failure Status: Acute Qualifiers: Chronicity: acute on chronic Respiratory failure complicat
[2020-05-11 08:25] LABS: Hematocrit 29.4 % (42.0-52.0); Hemoglobin 8.7 g/dL (14.1-18.0)
[2020-05-11 09:34] LABS: Vitamin B12 229 pg/mL (239-931)
[2020-05-11 09:51] LABS: Folate 6.45 ng/mL
[2020-05-11 09:58] LABS: Iron 23 ug/dL (49-181)
[2020-05-11 10:07] LABS: Total Iron Binding Capacity 377 ug/dL (261-462)
--- NOTE | 2020-05-11 11:09 | HMH.ACPN ---
Internal Medicine - PN: Subj *Date: 05/11/20 *Time: 11:09 Exam Vital signs and Labs for Last 24 Hours: Temp Pulse Resp BP Pulse Ox 98.5 F 71 19 111/46 L 90 L 05/11/20 08:00 05/11/20 08:00 05/11/20 08:00 05/11/20 08:00 05/11/20 08:00 Laboratory Results - last 24 hr 05/10/20 11:14: POC Glucose 102 05/10/20 16:27: POC Glucose 138 H 05/10/20 20:15: POC Glucose 129 H 05/11/20 00:58: Specimen Source L/r, O2 % 5, ABG pH 7.21 L*, ABG pCO2 67.9 H, ABG pO2 53.5 L, ABG HCO3 26.2 H, ABG Total CO2 28.3 H, ABG O2 Saturation 77 L*, ABG Base Excess -1.7, Claudio Test Y 05/11/20 05:27: POC Glucose 166 H 05/11/20 05:44: WBC 10.3, RBC 3.16 L, Hgb 8.7 L D, Hct 29.5 L, MCV 93.3, MCH 27.5, MCHC 29.5 L, RDW 15.6, Plt Count 184, MPV 10.7 H, Neut % (Auto) 83.0 H, Lymph % (Auto) 8.1 L, [place] % (Auto) 8.3, Eos % (Auto) 0.4, Baso % (Auto) 0.1, Neut # (Auto) 8.5 H, Lymph # (Auto) 0.8, [place] # (Auto) 0.9, Eos # (Auto) 0.0, Baso # (Auto) 0.0 05/11/20 05:44: Sodium 144, Potassium 4.6, Chloride 107, Carbon Dioxide 30, Anion Gap 11.6, BUN 40 H, Creatinine 1.20, Estimated Creat Clear 57, Estimated GFR 58 L, Est GFR ( Amer) 70, Glucose 163 H, Calcium 9.0 05/11/20 05:44: Iron 23 L, TIBC 377, Iron Saturation 6.94294 L, Vitamin B12 229 L, Folate 6.45 05/11/20 05:44: Hgb 8.7 L, Hct 29.4 L I & O for Last 24 hours: Intake & Output 05/08/20 05/09/20 05/10/20 05/11/20 23:59 23:59 23:59 23:59 Intake Total 600 / 600 1210 / 1330 840 / 840 0 / 0 Output Total 200 / 200 850 / 850 100 / 100 325 / 325 Balance 400 / 400 360 / 480 740 / 740 -325 / -325 Weight 81 kg 81.193 kg 80.91 kg 82.299 kg Microbiology Reports for the Last 24 Hours: Microbiology 05/09/20 08:27 Sputum - Expectorated Sputum Gram Stain - Final 05/09/20 08:27 Sputum - Expectorated Sputum Sputum Culture - Preliminary 05/09/20 02:00 Urine,Clean Catch Urine Culture - Final Multiple organisms, suggests contamination. Assessment and Plan (1) Anemia Status: Acute Qualifiers: Anemia type: unspecified type Qualified Code(s): D64.9 - Anemia, unspecified Category: Medical Code(s): D64.9 - Anemia, unspecified (2) Community acquired pneumonia Status: Acute Qualifiers: Laterality: right Lung location: lower lobe of lung Qualified Code(s): J18.9 - Pneumonia, unspecified organism Category: Medical Code(s): J18.9 - Pneumonia, unspecified organism (3) Congestive heart failure Status: Acute Qualifiers: Heart failure type: unspecified Heart failure chronicity: acute on chronic Qualified Code(s): I50.9 - Heart failure, unspecified Category: Medical Code(s): I50.9 - Heart failure, unspecified (4) Overweight (BMI 25.0-29.9) Status: Acute Category: Medical Code(s): E66.3 - Overweight (5) Respiratory acidosis Status: Acute Category: Medical Code(s): E87.2 - Acidosis (6) Respiratory failure Status: Acute Qualifiers: Chronicity: acute on chronic Respiratory failure complication: hypercapnia Qualified Code(s): J96.22 - Acute and chronic respiratory failure with hypercapnia Category: Medical Code(s): J96.90 - Respiratory failure, unspecified, unspecified whether with hypoxia or hypercapnia (7) SIRS (systemic inflammatory response syndrome) Status: Acute Category: Medical Code(s): R65.10 - Systemic inflammatory response syndrome (SIRS) of non-infectious origin without acute organ dysfunction (8) A-fib Status: Chronic Qualifiers: Atrial fibrillation type: longstanding persistent Qualified Code(s): I48.11 - Longstanding persistent atrial fibrillation Category: Medical Code(s): I48.91 - Unspecified atrial fibrillation (9) COPD (chronic obstructive pulmonary disease) Status: Chronic Qualifiers: COPD type: COPD with acute exacerbation Qualified Code(s): J44.1 - Chronic obstructive pulmonary disease with (acute) exacerbation Category: Medical
[2020-05-11 12:04] LABS: Occult Blood,Stool Positive (Negative)
[2020-05-11 12:07] LABS: POC Glucose,Bedside 153 (70-110)
--- NOTE | 2020-05-11 12:38 | HMH.PULMCON ---
*Admission Date: 05/08/20 *Reason for consult:: Acute hypoxic respiratory failure, COPD exacerbation *History of present illness: Mr. Isabel is a 79-year-old male with a history of CAD, recent stenting, peripheral arterial disease status post stenting, BPH, hypertension, COPD, diastolic heart failure was presented to the ED with sudden onset worsening shortness of breath that was not preceded by worsening cough and sputum production for the last 3 to 4 days without any fevers. On presentation to the ED patient was found to have bilateral infiltrates on his chest x-ray along with elevated BNP., Patient was initiated on community-acquired pneumonia treatment with ceftriaxone 8 remain on placed on Vapotherm. Patient clinically improved however over the weekend patient's respiratory status declining and pulmonary was called for further management [facility] History Medical History: Reports:: Arrhythmia, Atherosclerotic Heart Disease, Atrial Fibrillation, Congestive Heart Failure, Chronic Obstructive Pulmonary Disease (COPD), Coronary Artery Disease, Gall Bladder Disease, Gastroesophageal Reflux Disease(GERD), Home Oxygen, Hyperlipidemia, Hypertension, Lung Disease, Myocardial Infarction, Palpitations, Peripheral Artery Disease, Peripheral Vascular Disease, Renal Disease, Renal Insufficiency, Transient Ischemic Attacks (TIA), Ulcer, Urinary Tract Infection Denies:: Cancer, Diabetes Mellitus Type 1, Diabetes Mellitus Type 2, Hepatitis, Internal Pacemaker, MRSA, Seizures *Have you ever received a pneumonia vaccine?: Yes *Have you received a flu vaccine this season?: No Other Medical History: Reports: Anemia, Arthritis, Cataracts. Denies: Hypothyroidism, Thyroid Disease Laterality Cases: Bilateral: Myringotomy (Ear Tubes) Other Surgeries: Yes: Angiogram, CABG, Cardiac Catheterization, Cholecystectomy, Coronary Stent, Ureter Stent, Other. No: Pacemaker Amputation: No Fractures: No - *Social History Last grade of school completed: High school graduate Smoking Status: Former smoker Tobacco Type: cigarettes # Packs/Day (cigarettes): 1 #Yrs smoked (if former smoker): 30 Smoking End Date: 20 years ago Alcohol Intake: never Alcohol Intake Frequency:: a few times a month Substance Use Type: denies use *Occupational Status:: retired Housing: house Household Members: none *Travel in the last 8 weeks: None Family Hx:: Coronary Artery Disease, Diabetes, Hyperlipidemia, Hypertension [facility] Pulmonology ROS - ENT Reports abnormal hearing - *Cardiovascular Reports leg pain with activity, Reports shortness of breath, Reports shortness of breath with activity - *Respiratory Respiratory: Yes shortness of breath, Yes chest congestion, Yes cough, Yes excessive phlegm production, No pain on inspiration, No pain with cough - *Gastrointestinal Gastrointestingal: Denies: change in bowel habits - *Musculoskeletal Musculoskeletal: Reports system reviewed and no additional complaints, except as docu - *Neurologic Reports abnormal hearing, Denies abnormal walking, Denies headache(s), Denies other visual disturbances, Denies seizure-like activity, Denies dizziness - Hematologic/Lymphatic Denies easy bleeding Meds Home Medications Medication Instructions Recorded Confirmed Type Atorvastatin Calcium [Lipitor 80mg 80 mg PO HS 09/10/17 05/08/20 History Tablet*] Esomeprazole Magnesium [Nexium] 40 mg PO DAILY 09/10/17 05/08/20 History Tamsulosin HCl [Flomax 0.4mg 0.8 mg PO DAILY 09/10/17 05/08/20 History capsule] carvediloL [Carvedilol 25mg Tab] 25 mg PO BID 09/10/17 05/08/20 History lisinopril 20 mg tablet 20 mg PO BID 12/19/17 05/08/20 History apixaban 5 mg tablet 5 mg PO BID 01/29/18 05/08/20 History albuterol sulfate 90 mcg/actuation 2 puff INHALATION QID 03/26/18 05/08/20 History aerosol inhaler Umeclidinium Brm/Vilanterol Tr 1 puff IH DAILY 08/28/18 05/08/20 History [Anoro Ellipta 62.5-25 Mcg INH] metformin 500 mg tablet,extended 1,000 mg PO DAILY
[2020-05-11 13:09] LABS: ABG Base Excess 2.9 mmol/L (-2.4-2.3); ABG Oxygen Saturation 95 % (90-100); ABG PH 7.32 mmol/L (7.35-7.45); ABG PO2 82.2 mmhg (80-100); ABG TCO2 30.8 mmhg (23-27)
[2020-05-11 13:17] LABS: Allen's Test Acceptable; Oxygen 70% %; Source Right Radial
[2020-05-11 13:19] LABS: ABG PCO2 57.3 mmhg (35.0-45.0)
--- NOTE | 2020-05-11 13:44 | PC.NURSE ---
RT spoke with about ABG on pt. He stated he did not want pt stuck twice so i cancelled the second order since i had already gotten a blood gas today. He also stated he wanted pt to stay on Vapotherm 30L,50% and to place pt back on Bipap tonight.
--- NOTE | 2020-05-11 14:29 | DIET.NUTRFU ---
Weight up 3# from yesterday. Intakes adequate- 75%. BG moderate- ~150. Pt is on no salt added/diabetic diet, has been educated on diet for CHF/DM.
--- NOTE | 2020-05-11 15:03 | PC.NURSE ---
PT IS SITTING UP IN THE CHAIR. NO COMPLAINTS OF DISCOMFORT. THIS MORNING PT WAS ON THE BIPAP AND WAS VERY DIFFICULT TO GET AWAKE. WHEN PT DID START TO WAKE UP HE ASKED FOR SOME CHICKEN NOODLE SOUP. PT WAS PUT ON 5 L NC TO EAT AND WAS NOT ABLE TO KEEP O2 SATURATION ABOVE 85%. PT NEEDED TO GET UP TO THE BSC TO HAVE A BOWEL MOVEMENT AND HIS O2 SATURATION CONTINUED TO DROP TO THE LOW 80'S. PT GOT FROM BSC TO RECLINER AND WAS SWITCHED OVER TO THE VAPOTHERM. O2 SATURATION HAS MAINTAINED 90-93% ON VAPOTHERM AT 30 L/MIN AND 50% O2. AUDIBLE WHEEZES NOTED. ABDOMEN SOFT/NON TENDER WITH ACTIVE BOWEL SOUNDS. WILL CONTINUE TO MONITOR.
[2020-05-11 15:58] LABS: POC Glucose,Bedside 184 (70-110)
--- NOTE | 2020-05-11 19:15 | PC.NURSE ---
report given to pieter
[2020-05-11 21:15] LABS: POC Glucose,Bedside 224 (70-110)
[2020-05-12] VITALS (13 sets, daily range): BP systolic 125–152; BP diastolic 52–79; PULSE 65–78; RESP 19–22; TEMP 36.5–36.9; O2SAT 91–98; BMI 29.9
--- NOTE | 2020-05-12 03:18 | PC.NURSE ---
Placed pt back on vapotherm due to pt taking it off multiple times throughout the night and started refusing to put it back on for the rest of the night.
[2020-05-12 05:59] LABS: POC Glucose,Bedside 193 (70-110)
[2020-05-12 06:16] LABS: Chloride 104 mmol/L (98-107); Sodium 145 mmol/L (136-145)
[2020-05-12 06:17] LABS: Potassium 4.2 mmoL/L (3.5-5.1)
[2020-05-12 06:18] LABS: Basophils % 0.1 % (0.1-2.0); Eosinophils % 0.1 % (0.1-12.0); Hematocrit 33.1 % (42.0-52.0); Lymphocytes # 0.5 K/mm3 (0.7-4.5); Lymphocytes % 6.5 % (10-50); Mean Corpuscular HGB Conc 29.6 g/dL (31.8-35.4); Mean Corpuscular Volume 91.2 fl (80-94); Mean Platelet Volume 9.8 fl (7.4-10.4); Monocytes # 0.4 K/mm3 (0.1-1.0); Monocytes % 4.3 % (1.7-9.3); Neutrophils # 7.3 K/mm3 (1.8-7.8); Platelet Count 232 K/mm3 (142-424); Red Blood Count 3.63 M/mm3 (4.60-6.20); Red Cell Distribution Width 15.7 % (11.5-17.5); White Blood Count 8.2 K/mm3 (4.8-10.8)
[2020-05-12 06:19] LABS: Blood Urea Nitrogen 37 mg/dl (9-20); Creatinine Clearance Estimated 57 mL/min (50-200); Estimated Glomerular Filt Rate 58 ml/min (>60); GFR (African American) 70 ML/MIN (>60)
[2020-05-12 06:20] LABS: Anion Gap 10.2 mEq/L (5-15); Calcium 9.2 mg/dl (8.4-10.2); Carbon Dioxide 35 mmol/L (22.0-30.0); Glucose 190 mg/dl (74-100)
[2020-05-12 06:25] LABS: MANUAL DIFFERENTIAL MANUAL DIFFERENTIAL (MANUAL DIFF)
--- NOTE | 2020-05-12 06:40 | PC.NURSE ---
shift summary, no acute changes since prior assessment, pt sat up in chair until 2300, no complaints of SOA, pt was placed on bipap when he went to bed and it remained on until approximately 0330, pt pulled it off and threw it in the floor, pt did not want it placed back on so vapotherm was put back on the pt, pt O2 sats 95-96% on bipap, and 91-98% on vapotherm
[2020-05-12 07:32] LABS: Anisocytosis 1+; Hypochromasia 1+; Lymphocytes % 4 % (10-50); Neutrophils % 95 % (42-76); Platelet Estimate Normal; Total Cells Counted 100
[2020-05-12 08:01] LABS: Hemoglobin 9.8 g/dL (14.1-18.0)
--- NOTE | 2020-05-12 08:12 | HMH.ACPN2 ---
<Ana Garcia - Last Filed: 05/12/20 08:12> Internal Medicine - PN: Subj *Date: 05/12/20 *Time: 08:12 Interval history: Patient states he is feeling better. He feels his breathing is doing okay. He denies chest pain. He is eating better. He has worried about not being able to void. He did void 700 mL yesterday. Patient has been weaned from BiPAP to Vapotherm. O2 is being weaned as well and is down to 40%. This a.m. CBC reveals hemoglobin of 9.8 hematocrit of 33.1 and white blood cell count of 8200. Iron and vitamin B12 are low. Exam Vital signs and Labs for Last 24 Hours: Temp Pulse Resp BP Pulse Ox 97.9 F 73 20 135/54 L 97 05/12/20 07:42 05/12/20 07:42 05/12/20 07:42 05/12/20 07:42 05/12/20 07:42 Laboratory Results - last 24 hr 05/11/20 05:44: Iron 23 L, TIBC 377, Iron Saturation 6.00161 L, Vitamin B12 229 L, Folate 6.45 05/11/20 05:44: Hgb 8.7 L, Hct 29.4 L 05/11/20 09:26: Specimen Source Right radial, O2 % 70%, ABG pH 7.32 L, ABG pCO2 57.3 H, ABG pO2 82.2, ABG HCO3 29.0 H, ABG Total CO2 30.8 H, ABG O2 Saturation 95, ABG Base Excess 2.9 H, Claudio Test Acceptable 05/11/20 11:05: Stool Occult Blood Positive A 05/11/20 11:55: POC Glucose 153 H 05/11/20 15:46: POC Glucose 184 H 05/11/20 21:07: POC Glucose 224 H 05/12/20 05:35: POC Glucose 193 H 05/12/20 05:43: WBC 8.2, RBC 3.63 L, Hgb 9.8 L D, Hct 33.1 L, MCV 91.2, MCH 27.0, MCHC 29.6 L, RDW 15.7, Plt Count 232 D, MPV 9.8, Neut % (Auto) 89.0 H, Lymph % (Auto) 6.5 L, [place] % (Auto) 4.3, Eos % (Auto) 0.1, Baso % (Auto) 0.1, Neut # (Auto) 7.3, Lymph # (Auto) 0.5 L, [place] # (Auto) 0.4, Eos # (Auto) 0.0, Baso # (Auto) 0.0, Total Counted 100, Neutrophils % (Manual) 95 H, Band Neutrophils % 1.0, Lymphocytes % (Manual) 4 L, Platelet Estimate Normal, Hypochromasia 1+, Anisocytosis 1+ 05/12/20 05:43: Sodium 145, Potassium 4.2, Chloride 104, Carbon Dioxide 35 H, Anion Gap 10.2, BUN 37 H, Creatinine 1.20, Estimated Creat Clear 57, Estimated GFR 58 L, Est GFR ( Amer) 70, Glucose 190 H, Calcium 9.2 I & O for Last 24 hours: Intake & Output 05/09/20 05/10/20 05/11/20 05/12/20 11:59 11:59 11:59 11:59 Intake Total 960 / 960 1210 / 1450 480 / 480 50 / 50 Output Total 700 / 700 350 / 350 425 / 425 700 / 700 Balance 260 / 260 860 / 1100 55 / 55 -650 / -650 Weight 179 lb 178 lb 6 oz 181 lb 7 oz 180 lb 1 oz Microbiology Reports for the Last 24 Hours: Microbiology 05/09/20 08:27 Sputum - Expectorated Sputum Gram Stain - Final 05/09/20 08:27 Sputum - Expectorated Sputum Sputum Culture - Preliminary 05/09/20 02:00 Urine,Clean Catch Urine Culture - Final Multiple organisms, suggests contamination. - Constitutional no acute distress Comments: Sitting up in the bed and has completed all of his breakfast. Does not appear to be dyspneic with talking - *Routine Respiratory Exam Present: diminished air movement (Bilaterally posteriorly). Absent: wheezes - *Routine Cardiovascular Exam Present: RRR - *Routine Abdominal Exam Present: soft, normoactive bowel sounds, obese. Absent: tenderness - *Routine Extremities Exam Absent: edema, calf tenderness - *Routine Neurological Exam Present: alert, oriented X3 Very hard of hearing Assessment and Plan (1) Anemia Status: Acute Qualifiers: Anemia type: unspecified type Qualified Code(s): D64.9 - Anemia, unspecified Category: Medical Code(s): D64.9 - Anemia, unspecified (2) Community acquired pneumonia Status: Acute Qualifiers: Laterality: right Lung location: lower lobe of lung Qualified Code(s): J18.9 - Pneumonia, unspecified organism Category: Medical Code(s): J18.9 - Pneumonia, unspecified organism (3) Congestive heart failure Status: Acute Qualifiers: Heart failure type: unspecified Heart failure chronicity: acute on chronic Qualified Code(s): I50.9 - Heart failure, unspecified Category: Medical Code(s): I50
[2020-05-12 10:33] LABS: POC Glucose,Bedside 333 (70-110)
[2020-05-12 11:45] LABS: ABG Base Excess 7.3 mmol/L (-2.4-2.3); ABG HCO3 31.7 mmhg (22.0-26.0); ABG Oxygen Saturation 96 % (90-100); ABG PCO2 49.4 mmhg (35.0-45.0); ABG PH 7.43 mmol/L (7.35-7.45); ABG PO2 89.5 mmhg (80-100); ABG TCO2 33.2 mmhg (23-27)
[2020-05-12 11:47] LABS: Oxygen 6LPM %
[2020-05-12 11:48] LABS: Allen's Test ACCEPTABLE; Source L RADIAL
--- NOTE | 2020-05-12 12:14 | PC.NURSE ---
Spoke with Dr. Elizabeth and questioned whether pt needed a trilogy or cpap/bipap at home when he is d/cd. He ordered an abg and pt is currently on [address] Elizabeth. Appears to be tolerating well. Have encouraged to walk this shift with assistance. Has been urinating per urinal, lasix given per sep. VSS. CB in reach. ACHS- FS SSI. Will cont to mx. ABD large and round -non tender.
--- NOTE | 2020-05-12 12:22 | HMH.PULMPN ---
Internal Medicine - PN: Subj *Date: 05/12/20 *Time: 12:22 Interval history: No acute respiratory events overnight. Patient not compliant with his BiPAP overnight. Respiratory status improved. Exam Vital signs and Labs for Last 24 Hours: Temp Pulse Resp BP Pulse Ox 98.5 F 68 22 130/64 94 L 05/12/20 11:09 05/12/20 11:27 05/12/20 11:09 05/12/20 11:09 05/12/20 11:27 Laboratory Results - last 24 hr 05/11/20 09:26: Specimen Source Right radial, O2 % 70%, ABG pH 7.32 L, ABG pCO2 57.3 H, ABG pO2 82.2, ABG HCO3 29.0 H, ABG Total CO2 30.8 H, ABG O2 Saturation 95, ABG Base Excess 2.9 H, Claudio Test Acceptable 05/11/20 15:46: POC Glucose 184 H 05/11/20 21:07: POC Glucose 224 H 05/12/20 05:35: POC Glucose 193 H 05/12/20 05:43: WBC 8.2, RBC 3.63 L, Hgb 9.8 L D, Hct 33.1 L, MCV 91.2, MCH 27.0, MCHC 29.6 L, RDW 15.7, Plt Count 232 D, MPV 9.8, Neut % (Auto) 89.0 H, Lymph % (Auto) 6.5 L, [place] % (Auto) 4.3, Eos % (Auto) 0.1, Baso % (Auto) 0.1, Neut # (Auto) 7.3, Lymph # (Auto) 0.5 L, [place] # (Auto) 0.4, Eos # (Auto) 0.0, Baso # (Auto) 0.0, Total Counted 100, Neutrophils % (Manual) 95 H, Band Neutrophils % 1.0, Lymphocytes % (Manual) 4 L, Platelet Estimate Normal, Hypochromasia 1+, Anisocytosis 1+ 05/12/20 05:43: Sodium 145, Potassium 4.2, Chloride 104, Carbon Dioxide 35 H, Anion Gap 10.2, BUN 37 H, Creatinine 1.20, Estimated Creat Clear 57, Estimated GFR 58 L, Est GFR ( Amer) 70, Glucose 190 H, Calcium 9.2 05/12/20 10:23: POC Glucose 333 H* 05/12/20 11:35: Specimen Source L radial, O2 % 6lpm, ABG pH 7.43, ABG pCO2 49.4 H, ABG pO2 89.5, ABG HCO3 31.7 H, ABG Total CO2 33.2 H, ABG O2 Saturation 96, ABG Base Excess 7.3 H, Claudio Test Acceptable I & O for Last 24 hours: Intake & Output 05/09/20 05/10/20 05/11/20 05/12/20 23:59 23:59 23:59 23:59 Intake Total 1210 / 1330 840 / 840 50 / 50 480 / 480 Output Total 850 / 850 100 / 100 1025 / 1025 925 / 925 Balance 360 / 480 740 / 740 -975 / -975 -445 / -445 Weight 179 lb 178 lb 6 oz 181 lb 7 oz 180 lb 1 oz Microbiology Reports for the Last 24 Hours: Microbiology 05/09/20 08:27 Sputum - Expectorated Sputum Gram Stain - Final 05/09/20 08:27 Sputum - Expectorated Sputum Sputum Culture - Preliminary - *Routine HEENT Exam Head: Present: normocephalic, atraumatic - *Routine Neck Exam Present: supple, full ROM. Absent: lymphadenopathy, thyromegaly - *Routine Respiratory Exam Present: CTA bilaterally, crackles. Absent: accessory muscle use, patient mechanically ventilated - *Routine Cardiovascular Exam Present: Normal S1 - *Routine Abdominal Exam Present: soft, normoactive bowel sounds, distended. Absent: tenderness, rebound, guarding, firm - *Routine Extremities Exam Absent: cyanosis, clubbing, edema Assessment and Plan (1) Anemia Status: Acute Qualifiers: Anemia type: unspecified type Qualified Code(s): D64.9 - Anemia, unspecified Category: Medical Code(s): D64.9 - Anemia, unspecified (2) Community acquired pneumonia Status: Acute Qualifiers: Laterality: right Lung location: lower lobe of lung Qualified Code(s): J18.9 - Pneumonia, unspecified organism Category: Medical Code(s): J18.9 - Pneumonia, unspecified organism (3) Congestive heart failure Status: Acute Qualifiers: Heart failure type: unspecified Heart failure chronicity: acute on chronic Qualified Code(s): I50.9 - Heart failure, unspecified Category: Medical Code(s): I50.9 - Heart failure, unspecified (4) Overweight (BMI 25.0-29.9) Status: Acute Category: Medical Code(s): E66.3 - Overweight (5) Respiratory acidosis Status: Acute Category: Medical Code(s): E87.2 - Acidosis (6) Respiratory failure Status: Acute Qualifiers: Chronicity: acute on chronic Respiratory failure complication: hypercapnia Qualified Code(s): J96.22 - Acute and chronic respiratory failure with hypercapnia Category: Medical Code(s): J96.90 -
--- NOTE | 2020-05-12 14:04 | HMH.OTEV ---
OT Inpatient Evaluation Rehab OT IP Evaluation Start: 05/12/20 11:36 Freq: ONCE Status: Complete Protocol: Document 05/12/20 13:58 KILEY[place]ONTAGUE (Rec: 05/12/20 14:03 [facility] [id number]) Rehab OT IP Assessment Subjective History Pt oriented x 2 on arrival for evaluation. Pt agreeable to participate in therapy evaluation. Pt was admitted via ED on 05/08/20 due to SOB and chest pain; dx with PNA. Pt has a past medical history of A-fib, CHF, COPD, CAD, DM Type 2, GERD, HTN, VA, TIA, PAD, PVD, UTI, Renal Insufficiency. Pt reports prior to being admitted he lived with daughter and son in law. Pt claims he was independent with bathing, dressing, and feeding. However, he was dependent upon his family to complete IADL's . Pt did use a can during ambulation. Subjective Dog walk road. Objective Patient Orientation Person,Place Upper Extremity Gross ROM WFL Bed Mobility bed mobility-scooting,bed mobility - supine/sit,bed mobility - rolling Assist Level Supervision/Stand by Transfer Training Sit/Stand Transfer Assist Level Contact Guard/Hand Hold Chair Transfer Ability Contact Guard/Hand Hold Chair Transfer Technique Sit to/from Ambulatory Rehab OT IP prob,goals,plan Problems Date of Evaluation: 05/12/20 OT IP Problems Bed Mobility,Transfers,Gait, Balance,Self care,Safety Rehab Potential Rehab Potential Good Equipment Needs Assistive Devices Rolling / Wheeled Walker Plan OT intervention Plan Bed Mobility,Transfers,Gait, Balance,Self care,Safety, Therapeutic Exercise OT Plan Frequency Daily Duration LOS Discharge Goals Bed Mobility Ability Standby Assistance Sit to Stand Chair Transfer Ability Supervision/Stand by Chair Transfer Ability Supervision/Stand by Chair Transfer Technique Sit to/from Ambulatory Chair Transfer Assistive Devices Rolling Walker Feeding Ability Independent Lower Body Dressing Ability Assistance X1
--- NOTE | 2020-05-12 14:30 | HMH.PTEV ---
Physical Therapy Evaluation Rehab PT IP Evaluation Start: 05/12/20 11:35 Freq: .once Status: Active Protocol: Document 05/12/20 13:48 PHORNE (Rec: 05/12/20 14:29 PHORNE [id number]) Subjective/History History History This is the initial evaluation for Guevara Kim, a 79 y/ o male referred to physical therapy to safety and ambulation. Pt. 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 Pt. presented to the ED with shortness of breath and chest pain radiating into his shoulders and back. Pt. described the pain as someone sitting on my chest . Note copied from History and Physical. Note by KEM Finch Subjective Subjective Pt. reported feeling fine while sitting up. Pt. reported that he was willing to work with therapy and wanted to get up and over to the chair. Co-treat with Jessica Martin OT Rehab PT IP Eval Objective Appearance Patient Behavior Appropriate,Impulsive,Confused Patient Orientation Name,Birthday Difficulty following instructions mild Speech Pattern Clear,Appropriate,Garbled, Mumbled Ambulation Patient Able to Ambulate Yes Ambulation Observation IP General Gait Pattern Observation Wide Based Gait Ambulation Distance (feet) 15 Ambulation Assistive Device None Ambulation Ability Contact Guard/Hand Hold Balance Ability to Arise Able, uses arms to help Sitting Balance Steady, safe Standing Balance Steady, wide stance Dynamic Sitting Balance Ability Normal Dynamic Standing Balance Ability Good Transfers Bed Transfer Ability Independent Chair Transfer Ability Independent Sit to Stand Bed Transfer Ability Supervision/Stand by Rehab PT IP prob,goals,plan Problems Date of Evaluation: 05/12/20 PT IP Problems Gait,Balance,Self care,Safety Rehab Potential Rehab Potential Fair Equipment Needs Assistive Devices Straight Cane Plan PT Intervention Plan
[2020-05-12 16:45] LABS: POC Glucose,Bedside 196 (70-110)
[2020-05-12 21:10] LABS: POC Glucose,Bedside 260 (70-110)
[2020-05-13] VITALS (11 sets, daily range): BP systolic 100–152; BP diastolic 54–69; PULSE 62–78; RESP 18–20; TEMP 36.4–36.8; O2SAT 84–98; BMI 29.2
--- NOTE | 2020-05-13 00:30 | PC.NURSE ---
He is non-complaint with bipap. He is A&Ox4. He is [place]. Continues on 3LPM n/c. Voiding per urinal. Urine is yellow, clear. Denies pain. Denies cough and SOA.
--- NOTE | 2020-05-13 02:12 | PC.NURSE ---
He has been resting in bed. No acute changes.
[2020-05-13 05:23] LABS: POC Glucose,Bedside 196 (70-110)
--- NOTE | 2020-05-13 08:36 | HMH.ACPN2 ---
Internal Medicine - PN: Subj *Date: 05/13/20 *Time: 08:36 Interval history: Patient states he feels better today. Exam Vital signs and Labs for Last 24 Hours: Temp Pulse Resp BP Pulse Ox 98.2 F 63 18 100/68 L 84 L 05/13/20 04:00 05/13/20 06:13 05/13/20 04:00 05/13/20 04:00 05/13/20 06:33 Laboratory Results - last 24 hr 05/12/20 10:23: POC Glucose 333 H* 05/12/20 11:35: Specimen Source L radial, O2 % 6lpm, ABG pH 7.43, ABG pCO2 49.4 H, ABG pO2 89.5, ABG HCO3 31.7 H, ABG Total CO2 33.2 H, ABG O2 Saturation 96, ABG Base Excess 7.3 H, Claudio Test Acceptable 05/12/20 16:37: POC Glucose 196 H 05/12/20 20:55: POC Glucose 260 H 05/13/20 05:08: POC Glucose 196 H Vital Signs - 24 hr 05/12/20 11:09 05/12/20 11:27 05/12/20 13:40 Temperature 98.5 F Pulse Rate 65 Pulse Rate [Right Radial] 76 Respiratory Rate 22 Blood Pressure [Left Arm] 130/64 Blood Pressure [Right Arm] 02 Sat by Pulse Oximetry 95 94 L 98 05/12/20 15:13 05/12/20 15:46 05/12/20 18:36 Temperature 97.7 F Pulse Rate 71 Pulse Rate [Right Radial] 70 Respiratory Rate 19 Blood Pressure [Left Arm] Blood Pressure [Right Arm] 136/52 L 02 Sat by Pulse Oximetry 97 97 98 05/12/20 20:00 05/12/20 23:42 05/13/20 00:00 Temperature 97.9 F 98.0 F Pulse Rate 69 Pulse Rate [Right Radial] 72 78 Respiratory Rate 22 20 Blood Pressure [Left Arm] Blood Pressure [Right Arm] 129/79 122/62 02 Sat by Pulse Oximetry 95 95 98 05/13/20 04:00 05/13/20 06:13 05/13/20 06:33 Temperature 98.2 F Pulse Rate 62 Pulse Rate [Right Radial] 73 Respiratory Rate 18 Blood Pressure [Left Arm] 100/68 L Blood Pressure [Right Arm] 02 Sat by Pulse Oximetry 93 L 98 84 L I & O for Last 24 hours: Intake & Output 05/10/20 05/11/20 05/12/20 05/13/20 23:59 23:59 23:59 23:59 Intake Total 840 / 840 50 / 50 960 / 960 Output Total 100 / 100 1025 / 1025 1425 / 1425 Balance 740 / 740 -975 / -975 -465 / -465 Weight 178 lb 6 oz 181 lb 7 oz 180 lb 1 oz 175 lb 7 oz Microbiology Reports for the Last 24 Hours: Microbiology 05/09/20 08:27 Sputum - Expectorated Sputum Gram Stain - Final 05/09/20 08:27 Sputum - Expectorated Sputum Sputum Culture - Final Normal Respiratory La[place] 05/08/20 02:50 Blood Blood Culture - Final NO GROWTH AFTER 5 DAYS 05/08/20 02:50 Blood Blood Culture - Final NO GROWTH AFTER 5 DAYS - Constitutional no acute distress (sitting in a chair) - *Routine HEENT Exam Head: Present: normocephalic Eye: Present: EOMI ENT: Present: mucous membranes moist - *Routine Neck Exam Present: supple. Absent: lymphadenopathy - *Routine Respiratory Exam Present: diminished air movement (in bases). Absent: wheezes - *Routine Cardiovascular Exam Present: RRR - *Routine Abdominal Exam Present: soft, normoactive bowel sounds. Absent: tenderness - *Routine Extremities Exam Absent: cyanosis, clubbing, edema - *Routine Skin Exam Present: warm. Absent: rash - *Routine Neurological Exam Present: alert, oriented X3 Assessment and Plan (1) Anemia Status: Acute Qualifiers: Anemia type: unspecified type Qualified Code(s): D64.9 - Anemia, unspecified Category: Medical Code(s): D64.9 - Anemia, unspecified (2) Community acquired pneumonia Status: Acute Qualifiers: Laterality: right Lung location: lower lobe of lung Qualified Code(s): J18.9 - Pneumonia, unspecified organism Category: Medical Code(s): J18.9 - Pneumonia, unspecified organism (3) Congestive heart failure Status: Acute Qualifiers: Heart failure type: unspecified Heart failure chronicity: acute on chronic Qualified Code(s): I50.9 - Heart failure, unspecified Category: Medical Code(s): I50.9 - Heart failure, unspecified (4) Overweight (BMI 25.0-29.9) Status: Acute Category: Medical C
--- NOTE | 2020-05-13 10:10 | HMH.PULMPN ---
Internal Medicine - PN: Subj *Date: 05/13/20 *Time: 10:10 Interval history: No acute respiratory events overnight. Exam Vital signs and Labs for Last 24 Hours: Temp Pulse Resp BP Pulse Ox 97.9 F 73 20 126/54 L 96 05/13/20 08:00 05/13/20 08:00 05/13/20 08:00 05/13/20 08:00 05/13/20 08:00 Laboratory Results - last 24 hr 05/12/20 10:23: POC Glucose 333 H* 05/12/20 11:35: Specimen Source L radial, O2 % 6lpm, ABG pH 7.43, ABG pCO2 49.4 H, ABG pO2 89.5, ABG HCO3 31.7 H, ABG Total CO2 33.2 H, ABG O2 Saturation 96, ABG Base Excess 7.3 H, Claudio Test Acceptable 05/12/20 16:37: POC Glucose 196 H 05/12/20 20:55: POC Glucose 260 H 05/13/20 05:08: POC Glucose 196 H I & O for Last 24 hours: Intake & Output 05/10/20 05/11/20 05/12/20 05/13/20 23:59 23:59 23:59 23:59 Intake Total 840 / 840 50 / 50 960 / 960 Output Total 100 / 100 1025 / 1025 1425 / 1425 Balance 740 / 740 -975 / -975 -465 / -465 Weight 178 lb 6 oz 181 lb 7 oz 180 lb 1 oz 175 lb 7 oz Microbiology Reports for the Last 24 Hours: Microbiology 05/09/20 08:27 Sputum - Expectorated Sputum Gram Stain - Final 05/09/20 08:27 Sputum - Expectorated Sputum Sputum Culture - Final Normal Respiratory [place] 05/08/20 02:50 Blood Blood Culture - Final NO GROWTH AFTER 5 DAYS 05/08/20 02:50 Blood Blood Culture - Final NO GROWTH AFTER 5 DAYS - *Routine HEENT Exam Head: Present: normocephalic, atraumatic - *Routine Neck Exam Absent: supple, lymphadenopathy - *Routine Respiratory Exam Present: CTA bilaterally. Absent: accessory muscle use, patient mechanically ventilated Comments: Clear to auscultate bilaterally except for bibasilar crackles - *Routine Cardiovascular Exam Present: Normal S1, Normal S2 - *Routine Abdominal Exam Present: soft, normoactive bowel sounds, distended. Absent: tenderness, rebound, guarding - *Routine Extremities Exam Absent: cyanosis, clubbing, edema Assessment and Plan (1) Anemia Status: Acute Qualifiers: Anemia type: unspecified type Qualified Code(s): D64.9 - Anemia, unspecified Category: Medical Code(s): D64.9 - Anemia, unspecified (2) Community acquired pneumonia Status: Acute Qualifiers: Laterality: right Lung location: lower lobe of lung Qualified Code(s): J18.9 - Pneumonia, unspecified organism Category: Medical Code(s): J18.9 - Pneumonia, unspecified organism (3) Congestive heart failure Status: Acute Qualifiers: Heart failure type: unspecified Heart failure chronicity: acute on chronic Qualified Code(s): I50.9 - Heart failure, unspecified Category: Medical Code(s): I50.9 - Heart failure, unspecified (4) Overweight (BMI 25.0-29.9) Status: Acute Category: Medical Code(s): E66.3 - Overweight (5) Respiratory acidosis Status: Acute Category: Medical Code(s): E87.2 - Acidosis (6) Respiratory failure Status: Acute Qualifiers: Chronicity: acute on chronic Respiratory failure complication: hypercapnia Qualified Code(s): J96.22 - Acute and chronic respiratory failure with hypercapnia Category: Medical Code(s): J96.90 - Respiratory failure, unspecified, unspecified whether with hypoxia or hypercapnia (7) SIRS (systemic inflammatory response syndrome) Status: Acute Category: Medical Code(s): R65.10 - Systemic inflammatory response syndrome (SIRS) of non-infectious origin without acute organ dysfunction (8) A-fib Status: Chronic Qualifiers: Atrial fibrillation type: longstanding persistent Qualified Code(s): I48.11 - Longstanding persistent atrial fibrillation Category: Medical Code(s): I48.91 - Unspecified atrial fibrillation (9) COPD (chronic obstructive pulmonary disease) Status: Chronic Qualifiers: COPD type: COPD with acute exacerbation Qualified Code(s): J44.1 - Chronic obstructive pulm
[2020-05-13 11:03] LABS: POC Glucose,Bedside 262 (70-110)
--- NOTE | 2020-05-13 11:56 | PC.NURSE ---
Pt alert and oriented and able to make needs known. Pt is [place]. SSI per achs. CB in reach. Has worked with therapy this shift. Has been up to chair all morning. Lungs cta/diminished. BS x 4. VSS. Reamins afe. Urinates per urinal. CB in reach. VSS
--- NOTE | 2020-05-13 11:59 | PC.NURSE ---
Remains on 2 L nasal cannula.
[2020-05-13 15:39] LABS: POC Glucose,Bedside 290 (70-110)
--- NOTE | 2020-05-13 17:49 | PC.NURSE ---
Pt alert and oriented x 4. RIN[place]. has been up to chair most of shift. No complaints. CB in reach. VSS. ACHS with SSI coverage. NAD. 02 on 2 L NC. Will cont to mx this shift.
--- NOTE | 2020-05-13 19:20 | PC.NURSE ---
reprot given to vlad
[2020-05-13 21:43] LABS: POC Glucose,Bedside 335 (70-110)
[2020-05-14] VITALS: BP 121/61; PULSE 69; RESP 18; TEMP 36.6; O2SAT 96
--- NOTE | 2020-05-14 03:29 | PC.NURSE ---
Pt has no complaints of chest pain or SOA, Pt remains on 2L NC with o2 sat 96-98%, Pts BLT lung sounds diminished, Pt provided and educated on incentive, Pt has intermittent non productive cough, Pt denies feelings of N/V/D or dizziness, IV Saline locked.
[2020-05-14 04:00] VITALS: BP 136/70; PULSE 61; RESP 18; TEMP 36.8; O2SAT 92
[2020-05-14 05:53] VITALS: BMI 29.5
[2020-05-14 06:14] VITALS: PULSE 63; PULSE 68; O2SAT 97
[2020-05-14 06:19] LABS: POC Glucose,Bedside 152 (70-110)
[2020-05-14 06:31] LABS: Basophils % 0.1 % (0.1-2.0); Eosinophils # 0.1 K/mm3 (0.0-0.4); Eosinophils % 0.6 % (0.1-12.0); Hematocrit 31.2 % (42.0-52.0); Hemoglobin 9.2 g/dL (14.1-18.0); Lymphocytes # 0.8 K/mm3 (0.7-4.5); Lymphocytes % 9.2 % (10-50); Mean Corpuscular HGB Conc 29.4 g/dL (31.8-35.4); Mean Corpuscular Hemoglobin 26.7 pg (27.0-31.2); Mean Corpuscular Volume 90.9 fl (80-94); Mean Platelet Volume 9.9 fl (7.4-10.4); Monocytes # 0.8 K/mm3 (0.1-1.0); Monocytes % 8.6 % (1.7-9.3); Neutrophils # 7.3 K/mm3 (1.8-7.8); Neutrophils % 81.4 % (37.0-80.0); Platelet Count 229 K/mm3 (142-424); Red Blood Count 3.43 M/mm3 (4.60-6.20); Red Cell Distribution Width 15.7 % (11.5-17.5); White Blood Count 8.9 K/mm3 (4.8-10.8)
[2020-05-14 06:42] LABS: Chloride 101 mmol/L (98-107); Sodium 145 mmol/L (136-145)
[2020-05-14 06:45] LABS: Blood Urea Nitrogen 37 mg/dl (9-20); Creatinine Clearance Estimated 67 mL/min (50-200); Estimated Glomerular Filt Rate 81 ml/min (>60); GFR (African American) 98 ML/MIN (>60)
[2020-05-14 06:46] LABS: Calcium 8.7 mg/dl (8.4-10.2); Carbon Dioxide 37 mmol/L (22.0-30.0); Glucose 155 mg/dl (74-100)
[2020-05-14 08:00] VITALS: BP 146/69; PULSE 67; RESP 17; TEMP 36.5; O2SAT 99
--- NOTE | 2020-05-14 08:51 | HMH.ACPN2 ---
<Verónica Sorensen - Last Filed: 05/14/20 08:51> Internal Medicine - PN: Subj *Date: 05/14/20 *Time: 07:50 Interval history: Pt states he is feeling well today. He denies any cough or pain. He does note some SOBOE. He has been up to the bathroom and ambulating in halls with assist. Exam Vital signs and Labs for Last 24 Hours: Temp Pulse Resp BP Pulse Ox 98.2 F 68 18 136/70 97 05/14/20 04:00 05/14/20 06:14 05/14/20 04:00 05/14/20 04:00 05/14/20 06:14 Laboratory Results - last 24 hr 05/13/20 10:55: POC Glucose 262 H 05/13/20 15:25: POC Glucose 290 H 05/13/20 20:09: POC Glucose 335 H* 05/14/20 05:38: POC Glucose 152 H 05/14/20 06:10: WBC 8.9, RBC 3.43 L, Hgb 9.2 L, Hct 31.2 L, MCV 90.9, MCH 26.7 L, MCHC 29.4 L, RDW 15.7, Plt Count 229, MPV 9.9, Neut % (Auto) 81.4 H, Lymph % (Auto) 9.2 L, [place] % (Auto) 8.6, Eos % (Auto) 0.6, Baso % (Auto) 0.1, Neut # (Auto) 7.3, Lymph # (Auto) 0.8, [place] # (Auto) 0.8, Eos # (Auto) 0.1, Baso # (Auto) 0.0 05/14/20 06:10: Sodium 145, Potassium 4.0, Chloride 101, Carbon Dioxide 37 H, Anion Gap 11.0, BUN 37 H, Creatinine 0.90 D, Estimated Creat Clear 67, Estimated GFR 81, Est GFR ( Amer) 98 D, Glucose 155 H, Calcium 8.7 I & O for Last 24 hours: Intake & Output 05/11/20 05/12/20 05/13/20 05/14/20 11:59 11:59 11:59 11:59 Intake Total 480 / 480 530 / 530 480 / 480 Output Total 425 / 425 1625 / 1625 500 / 500 700 / 700 Balance 55 / 55 -1095 / -1095 -20 / -20 -700 / -700 Weight 181 lb 7 oz 180 lb 1 oz 175 lb 7 oz 177 lb Microbiology Reports for the Last 24 Hours: Microbiology 05/09/20 08:27 Sputum - Expectorated Sputum Gram Stain - Final 05/09/20 08:27 Sputum - Expectorated Sputum Sputum Culture - Final Normal Respiratory [place] - Constitutional no acute distress Comments: sitting up in chair - *Routine HEENT Exam Head: Present: normocephalic ENT: Present: mucous membranes moist - *Routine Respiratory Exam Comments: good air movement with bibasilar rales - *Routine Cardiovascular Exam Present: irregularly irregular - *Routine Abdominal Exam Present: soft, normoactive bowel sounds. Absent: tenderness, distended, guarding, firm, rigid - *Routine Extremities Exam Present: full ROM, pulses intact. Absent: edema, calf tenderness - *Routine Neurological Exam Present: alert, oriented X3, normal speech [facility] Assessment and Plan (1) Anemia Status: Acute Qualifiers: Anemia type: unspecified type Qualified Code(s): D64.9 - Anemia, unspecified Category: Medical Code(s): D64.9 - Anemia, unspecified (2) Community acquired pneumonia Status: Acute Qualifiers: Laterality: right Lung location: lower lobe of lung Qualified Code(s): J18.9 - Pneumonia, unspecified organism Category: Medical Code(s): J18.9 - Pneumonia, unspecified organism (3) Congestive heart failure Status: Acute Qualifiers: Heart failure type: unspecified Heart failure chronicity: acute on chronic Qualified Code(s): I50.9 - Heart failure, unspecified Category: Medical Code(s): I50.9 - Heart failure, unspecified (4) Overweight (BMI 25.0-29.9) Status: Acute Category: Medical Code(s): E66.3 - Overweight (5) Respiratory acidosis Status: Acute Category: Medical Code(s): E87.2 - Acidosis (6) Respiratory failure Status: Acute Qualifiers: Chronicity: acute on chronic Respiratory failure complication: hypercapnia Qualified Code(s): J96.22 - Acute and chronic respiratory failure with hypercapnia Category: Medical Code(s): J96.90 - Respiratory failure, unspecified, unspecified whether with hypoxia or hypercapnia (7) SIRS (systemic inflammatory response syndrome) Status: Acute Category: Medical Code(s): R65.10 - Systemic inflammatory response syndrome (SIRS) of non-infectious origin without acute organ dysfunction (8) A-fib Status: Chronic Qualifiers: Atrial
--- NOTE | 2020-05-14 09:39 | HMH.PULMPN ---
Internal Medicine - PN: Subj *Date: 05/14/20 *Time: 09:39 Interval history: No acute respiratory events overnight. Exam Vital signs and Labs for Last 24 Hours: Temp Pulse Resp BP Pulse Ox 97.7 F 67 17 146/69 H 99 05/14/20 08:00 05/14/20 08:00 05/14/20 08:00 05/14/20 08:00 05/14/20 08:00 Laboratory Results - last 24 hr 05/13/20 10:55: POC Glucose 262 H 05/13/20 15:25: POC Glucose 290 H 05/13/20 20:09: POC Glucose 335 H* 05/14/20 05:38: POC Glucose 152 H 05/14/20 06:10: WBC 8.9, RBC 3.43 L, Hgb 9.2 L, Hct 31.2 L, MCV 90.9, MCH 26.7 L, MCHC 29.4 L, RDW 15.7, Plt Count 229, MPV 9.9, Neut % (Auto) 81.4 H, Lymph % (Auto) 9.2 L, [place] % (Auto) 8.6, Eos % (Auto) 0.6, Baso % (Auto) 0.1, Neut # (Auto) 7.3, Lymph # (Auto) 0.8, [place] # (Auto) 0.8, Eos # (Auto) 0.1, Baso # (Auto) 0.0 05/14/20 06:10: Sodium 145, Potassium 4.0, Chloride 101, Carbon Dioxide 37 H, Anion Gap 11.0, BUN 37 H, Creatinine 0.90 D, Estimated Creat Clear 67, Estimated GFR 81, Est GFR ( Amer) 98 D, Glucose 155 H, Calcium 8.7 I & O for Last 24 hours: Intake & Output 05/11/20 05/12/20 05/13/20 05/14/20 23:59 23:59 23:59 23:59 Intake Total 50 / 50 960 / 960 360 / 360 Output Total 1025 / 1025 1425 / 1425 700 / 700 Balance -975 / -975 -465 / -465 -340 / -340 Weight 181 lb 7 oz 180 lb 1 oz 175 lb 7 oz 177 lb Microbiology Reports for the Last 24 Hours: Microbiology 05/09/20 08:27 Sputum - Expectorated Sputum Gram Stain - Final 05/09/20 08:27 Sputum - Expectorated Sputum Sputum Culture - Final Normal Respiratory [place] - Constitutional no acute distress - *Routine HEENT Exam Head: Present: normocephalic, atraumatic - *Routine Neck Exam Present: supple. Absent: lymphadenopathy, thyromegaly - *Routine Respiratory Exam Present: CTA bilaterally. Absent: accessory muscle use, patient mechanically ventilated - *Routine Cardiovascular Exam Present: RRR, Normal S1, Normal S2 - *Routine Abdominal Exam Present: soft. Absent: tenderness, distended, guarding - *Routine Extremities Exam Absent: cyanosis, clubbing, edema Assessment and Plan (1) Anemia Status: Acute Qualifiers: Anemia type: unspecified type Qualified Code(s): D64.9 - Anemia, unspecified Category: Medical Code(s): D64.9 - Anemia, unspecified (2) Community acquired pneumonia Status: Acute Qualifiers: Laterality: right Lung location: lower lobe of lung Qualified Code(s): J18.9 - Pneumonia, unspecified organism Category: Medical Code(s): J18.9 - Pneumonia, unspecified organism (3) Congestive heart failure Status: Acute Qualifiers: Heart failure type: unspecified Heart failure chronicity: acute on chronic Qualified Code(s): I50.9 - Heart failure, unspecified Category: Medical Code(s): I50.9 - Heart failure, unspecified (4) Overweight (BMI 25.0-29.9) Status: Acute Category: Medical Code(s): E66.3 - Overweight (5) Respiratory acidosis Status: Acute Category: Medical Code(s): E87.2 - Acidosis (6) Respiratory failure Status: Acute Qualifiers: Chronicity: acute on chronic Respiratory failure complication: hypercapnia Qualified Code(s): J96.22 - Acute and chronic respiratory failure with hypercapnia Category: Medical Code(s): J96.90 - Respiratory failure, unspecified, unspecified whether with hypoxia or hypercapnia (7) SIRS (systemic inflammatory response syndrome) Status: Acute Category: Medical Code(s): R65.10 - Systemic inflammatory response syndrome (SIRS) of non-infectious origin without acute organ dysfunction (8) A-fib Status: Chronic Qualifiers: Atrial fibrillation type: longstanding persistent Qualified Code(s): I48.11 - Longstanding persistent atrial fibrillation Category: Medical Code(s): I48.91 - Unspecified atrial fibrillation (9) COPD (chronic obstructive pulmonary disease) Status: Chronic Qualifiers
--- NOTE | 2020-05-14 11:26 | SW/DCPLANNER ---
Addendum entered by Shari Cheney 05/14/20 14:24: PATIENT DID NOT DROP LOW ENOUGH TO QUALIFY FOR UNDER [facility] GUIDELINES... PATIENT HAS A CONCENTRATOR AT HOME AND WEARS AT NIGHT BUT AT THIS TIME HE DOES NOT HAVE LOW ENOUGH SATS FOR DAYTIME USE.... Original Note: PATIENT IS DISCHARGING HOME FROM THE HOSPITAL TODAY AND I HAVE NOTIFIED RODRÍGUEZ HE NEEDS A PORTABLE TANK TO GO HOME... PATIENT WAS AT ONE TIME WITH [facility] IN [place] AND HAS SINCE SWITCHED TO [facility] HERE IN [facility]...WAITING FOR A RESTING 02 SAT TO SEE IF HE QUALIFIES AND WILL SEND IT TO HAVE A PORTABLE TANK DELIVERED HERE PRIOR TO DISCHARGE..
[2020-05-14 11:35] VITALS: PULSE 75; PULSE 80; O2SAT 98
[2020-05-14 12:00] VITALS: O2SAT 95
--- NOTE | 2020-05-14 12:05 | PC.NURSE ---
resting room air o2 saturation 95 %.
--- NOTE | 2020-05-14 15:32 | HMH.DCSUM ---
General - General Admission date:: 05/08/20 Discharge date: 05/14/20 HPI HPI: Mr. Kim was an 79yo male with extensive history including DM2, CHF, Afib, COPD, CAD with prior CABG, HTN, GERD, HLP, PAD with bilateral leg artery stenting, BPH, and CRI who used home oxygen. He presented to the ED overnight after sudden onset of shortness of breath and chest pain radiating into his shoulders and back. He rated the pain at 8 out of 10 and described it as someone sitting on my chest . He denied any preceeding symptoms and stated he had been feeling well at home other than dysuria. He had been seen in the office of [facility] for BPH and decreased urinary stream and was scheduled to see Dr. Yan. Upon arrival to the ED, he was found to have an elevated WBC at 12.0 with BNP of 3820. EKG showed Afib with non-specific ST-T wave changes. CXR showed bilateral air space disease right greater than left consistent with bilateral pneumonia. He received Zithromax and Rocephin and was placed on Vapotherm. Hospital Course Hospital Course: The morning following admission, he was resting in bed without complaint. His O2 sats had been maintained overnight on Vapotherm. He continued to improve until the morning of 05/11/2020 when his respiratory status declined and he was placed on bipap to maintain O2 sats. Pulmonology was consulted and felt that there was a component of CHF contributing due to improvement of repeat CXR. He was started on steroids and nebs and again began to show improvement. By the morning of 05/14/2020 he was felt stable for discharge home with continuous oxygen and short-term followup with PCP and pulmonology. Objective Vital signs: Temp Pulse Resp BP Pulse Ox 97.7 F 80 17 146/69 H 95 05/14/20 08:00 05/14/20 11:35 05/14/20 08:00 05/14/20 08:00 05/14/20 12:00 Results Labs on day of discharge: Labs from last 24 hours 05/14/20 05/14/20 05/14/20 06:10 06:10 05:38 WBC 8.9 RBC 3.43 L Hgb 9.2 L Hct 31.2 L MCV 90.9 MCH 26.7 L MCHC 29.4 L RDW 15.7 Plt Count 229 MPV 9.9 Neut % (Auto) 81.4 H Lymph % (Auto) 9.2 L [place] % (Auto) 8.6 Eos % (Auto) 0.6 Baso % (Auto) 0.1 Neut # (Auto) 7.3 Lymph # (Auto) 0.8 [place] # (Auto) 0.8 Eos # (Auto) 0.1 Baso # (Auto) 0.0 Sodium 145 Potassium 4.0 Chloride 101 Carbon Dioxide 37 H Anion Gap 11.0 BUN 37 H Creatinine 0.90 D Estimated Creat Clear 67 Estimated GFR 81 Est GFR ( Amer) 98 D Glucose 155 H POC Glucose 152 H Calcium 8.7 05/13/20 05/13/20 20:09 15:25 WBC RBC Hgb Hct MCV MCH MCHC RDW Plt Count MPV Neut % (Auto) Lymph % (Auto) [place] % (Auto) Eos % (Auto) Baso % (Auto) Neut # (Auto) Lymph # (Auto) [place] # (Auto) Eos # (Auto) Baso # (Auto) Sodium Potassium Chloride Carbon Dioxide Anion Gap BUN Creatinine Estimated Creat Clear Estimated GFR Est GFR ( Amer) Glucose POC Glucose 335 H* 290 H Calcium DS: Diagnosis - Discharge Diagnosis (1) Anemia Status: Acute (2) Community acquired pneumonia Status: Acute (3) Congestive heart failure Status: Acute (4) Overweight (BMI 25.0-29.9) Status: Acute (5) Respiratory acidosis Status: Acute (6) Respiratory failure Status: Acute (7) SIRS (systemic inflammatory response syndrome) Status: Acute (8) A-fib Status: Chronic (9) COPD (chronic obstructive pulmonary disease) Status: Chronic (10) DM2 (diabetes mellitus, type 2) Status: Chronic (11) CAD (coronary artery disease) Status: Chronic (12) Renal insufficiency Status: Chronic (13) History of peptic ulcer Status: Acute Discharge Plan - Patient Discharge Instructions ACTIVITY: Continue current activity DIET: continue same diet Additional Instructions: Patient needs continues NC supp
[2020-05-19 16:24] LABS: POC Glucose,Bedside 173 (70-110)
== END 2020-05-14 12:10 | disposition home or self-care (01) | DRG 193 ==
LOC: ER 01:39 → 2ND 03:48
PROVIDERS: Internal Medicine Pulmonary Disease; Nurse Practitioner Family; Admitting Provider Family Medicine; Emergency Provider Emergency Medicine; PCP Family Medicine; Visit Provider Family Medicine
DX: J96.22 Acute and chronic respiratory failure with hypercapnia (principal); J18.9 Pneumonia, unspecified organism; I48.11 Longstanding persistent atrial fibrillation; R65.10 Systemic inflammatory response syndrome (SIRS) of non-infectious origin without acute organ dysfunction; E11.9 Type 2 diabetes mellitus without complications; J44.9 Chronic obstructive pulmonary disease, unspecified; I25.10 Atherosclerotic heart disease of native coronary artery without angina pectoris; I11.0 Hypertensive heart disease with heart failure; I50.9 Heart failure, unspecified; Z86.19 Personal history of other infectious and parasitic diseases; Z87.891 Personal history of nicotine dependence; Z95.1 Presence of aortocoronary bypass graft; Z79.84 Long term (current) use of oral hypoglycemic drugs; Z79.01 Long term (current) use 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s; Z79.02 Long term (current) use of antithrombotics/antiplatelets; Z79.52 Long term (current) use of systemic steroids; Z95.5 Presence of coronary angioplasty implant and graft; Z99.81 Dependence on supplemental oxygen; Z95.820 Peripheral vascular angioplasty status with implants and grafts
CPT/HCPCS: 36415; 71045; 80048; 81001; 82272; 82607; 82746; 82803; 82962; 83540; 83550; 83605; 83880; 84484; 85007; 85014; 85018; 85025; 86328; 87040; 87070; 87086; 87205; 93005; 93306; 94640; 94660; 94760; 94761; 96365; 96375; 97110; 97116; 97161; 97165; 99285; G0328; J0456; U0003

== ENCOUNTER 2020-05-15 09:49 | Day surgery (SDC) | payer MEDICARE, OTHER, SELFPAY ==
[2020-05-06 10:43] VITALS: BMI 29.0
[2020-05-15 10:14] VITALS: BP 131/65; PULSE 89; RESP 19; TEMP 36.1; O2SAT 95
[2020-05-15 10:28] LABS: POC Glucose,Bedside 134 (70-110)
[2020-05-15 10:50] VITALS: BP 146/68; PULSE 69; RESP 18; TEMP 36.4; O2SAT 91
[2020-05-15 11:05] VITALS: BP 146/68; PULSE 69; RESP 18; O2SAT 91
--- NOTE | 2020-05-15 13:56 | P.OP_ITS ---
Date of procedure: 05/15/20 Pre-op Diagnosis:: Urinary slowing and dribbling Post-op Diagnosis:: Distal urethral stenosis Procedure performed:: Cystoscopy and dilation of distal urethral stenosis Surgeon:: Cristiano Yan MD Anesthesia: local Estimated blood loss (mL): 0 Clinical Note:: Patient with 2-month history of urinary slowing and dribbling Operative findings:: Prostate is nonobstructing. There was evidence of a distal urethral narrowing and a hypospadiac meatus Operative note:: Patient taken to the treatment room on the stretcher. Was prepped draped in the standard surgical fashion and 2% lidocaine placed into the urethra. There was some resistance to placement of the numbing jelly. The urethra was clamped and after 5 minutes the flexible scope introduced into a hypospadiac meatus. The meatus is noted at the ventral dee. The scope was unable to be passed proximally as it was some resistance in the distal urethra. The urethra was then dilated with straight sounds from 10 Bangl[place]hi to 24 Banglades[place] with some resistance noted. After dilation the 24 Bangl[place] the flexible scope was passed into the meatus and passed to the prostatic urethra was nonobstructing. The bladder was entered and examined in a systematic fashion. There is no evidence of mucosal abnormalities, stones, trabeculation or diverticula. Ureteral orifices in their normal anatomic position. Scope was retroflexed showing no evidence of a median lobe. The scope then removed. Patient tolerated the procedure well. We discussed finding of urethral stenosis today and hopefully he will be voiding better. I will see him back in 3 weeks in follow-up. Condition: stable Disposition: same day Specimens:: None Complications:: None
== END 2020-05-15 11:05 | disposition home or self-care (01) ==
LOC: OUTP 09:50
PROVIDERS: PCP Family Medicine; Visit Provider Urology
PROC: (CPT 52281; principal; 2020-05-15 10:55)
DX: R39.198 Other difficulties with micturition (principal); N35.919 Unspecified urethral stricture, male, unspecified site; Q54.1 Hypospadias, penile; N40.1 Benign prostatic hyperplasia with lower urinary tract symptoms; I25.10 Atherosclerotic heart disease of native coronary artery without angina pectoris; I48.91 Unspecified atrial fibrillation; I50.9 Heart failure, unspecified; I11.0 Hypertensive heart disease with heart failure; J44.9 Chronic obstructive pulmonary disease, unspecified; K21.9 Gastro-esophageal reflux disease without esophagitis; Z88.0 Allergy status to penicillin; Z79.899 Other long term (current) drug therapy
CPT/HCPCS: 52281; 82962

== ENCOUNTER → 2020-06-02 14:58 | Outpatient (CLI) | payer MEDICARE, OTHER, SELFPAY ==
--- NOTE | 2020-06-02 15:07 | XR_ITS ---
PROCEDURE: XR CHEST 2V CLINICAL HISTORY: PNEUMONIA COMPARISON: CT CHESTWO CT chest wo con from 04/19/2018 CR XR CHEST 2V from 01/18/2020 CR XR CHEST PORTABLE from 05/08/2020 CR XR CHEST PORTABLE from 05/11/2020 FINDINGS: Again noted borderline cardiomegaly. Emphysematous changes noted with hyperexpansion lung trejo. There has been interval almost complete clearing of the bilateral lower lobe pneumonic infiltrates. Minimal atelectasis or scarring is seen at the left base. There are degenerate changes midthoracic spine. IMPRESSION: Mild underlying COPD, interval almost complete resolution of bilateral lower lobe pneumonic infiltrates Dictated by: Dr. Quang Luna MD 06/02/2020 15:36 Dr. Quang Luna MD in [place] 06/02/2020 15:36
== END ==
PROVIDERS: PCP Family Medicine; Visit Provider Family Medicine
DX: J18.9 Pneumonia, unspecified organism (principal)
CPT/HCPCS: 71046

== ENCOUNTER → 2020-06-08 09:46 | Outpatient (CLI) | payer MEDICARE, OTHER, SELFPAY ==
[2020-06-08 10:35] VITALS: PULSE 54; PULSE 57
== END ==
PROVIDERS: PCP Family Medicine; Visit Provider Internal Medicine Pulmonary Disease
DX: E87.2 Acidosis (principal); J98.11 Atelectasis; J44.1 Chronic obstructive pulmonary disease with (acute) exacerbation; R07.9 Chest pain, unspecified; J44.9 Chronic obstructive pulmonary disease, unspecified
CPT/HCPCS: 94060; 94618; 94640; 94727; 94729

== ENCOUNTER 2020-06-09 17:27 | Emergency (ER) | payer MEDICARE, OTHER, SELFPAY ==
[2020-06-09 17:38] VITALS: BP 141/58; PULSE 68; RESP 18; TEMP 36.8; O2SAT 94; BMI 29.0
[2020-06-09 17:39] VITALS: BP 141/58; PULSE 72; O2SAT 98
[2020-06-09 17:41] VITALS: BMI 29.0
--- NOTE | 2020-06-09 17:42 | XR_ITS ---
PROCEDURE: XR TIBIA FIBULA RT 2V CLINICAL INDICATION: injury Pain COMPARISON: CR XR ANKLE RT MIN 3V from 06/09/2020 FINDINGS: There is an oblique nondisplaced fracture of the distal fibula. The proximal mid aspect of the tibia and fibula have an unremarkable appearance. The ankle mortise does not appear widened. IMPRESSION: Nondisplaced distal fibular fracture Dictated by: Claudio Alamo MD 06/09/2020 21:57 Claudio Alamo MD in [place] 06/09/2020 21:57
--- NOTE | 2020-06-09 17:42 | XR_ITS ---
PROCEDURE: XR FOOT RT MIN 3V CLINICAL INDICATION: injury Pain COMPARISON: No exams were available for comparison FINDINGS: No fracture or dislocation. No lytic or blastic change. There is normal mineralization. The joint spaces are well-preserved. No significant degenerative/arthritic changes. No erosive changes evident. Other findings:None. IMPRESSION: No acute findings. Dictated by: Claudio Alamo MD 06/09/2020 21:58 Claudio Alamo MD in [place] 06/09/2020 21:58
--- NOTE | 2020-06-09 17:45 | XR_ITS ---
PROCEDURE: XR ELBOW RT MIN 3V CLINICAL INDICATION: injury Posttraumatic pain COMPARISON: No exams were available for comparison FINDINGS: No fracture or dislocation. No lytic or blastic change. There is normal mineralization. The joint spaces are well-preserved. No significant degenerative/arthritic changes. No erosive changes evident. Other findings:There are 2 calcific densities along the lateral epicondyle and could be related to old injuries or loose bodies. IMPRESSION: No acute fracture. Ununited ossicles versus old injury or loose bodies at the lateral epicondylar region Dictated by: Claudio Alamo MD 06/09/2020 22:01 Claudio Alamo MD in [place] 06/09/2020 22:01
--- NOTE | 2020-06-09 17:46 | HMH.EDGENADL ---
ED Disposition Clinical Impression: Closed right fibular fracture Qualifiers: Encounter type: initial encounter Fibula location: shaft Fracture morphology: oblique Fracture alignment: nondisplaced Qualified Code(s): S82.434A - Nondisplaced oblique fracture of shaft of right fibula, initial encounter for closed fracture Disposition: Home, Self-Care Condition on Discharge: Good Additional Instructions: You were seen on an emergency basis. It is very important that you follow up with your primary care provider and/or specialist as we discussed within 2 days. All labs and imaging were obtained and interpreted here to rule out life threatening emergencies, but your final results should be reviewed by your primary doctor at your follow up appointment. Please return to the emergency department if any of your symptoms worsen, or if they do not improve as we discussed. Please remain nonweightbearing to your right leg as we discussed until you are cleared by orthopedics. Referrals: Colby Quan MD [Primary Care Provider] - - Critical Care Critical Care Time: No Attestation: On 06/09/20, the high probability of a clinically significant, sudden or life threatening deterioration of the following system(s) required my full and direct attention, intervention and personal management. The time I documented below is in addition to time spent performing reported procedures but includes the following listed in this critical care notation. Medical Decision Making - Medical Records Medical records reviewed: Yes: I reviewed the patient's medical records. - Han Inquiry Pt receiving controlled substance: No Vital Signs: 06/09/20 17:38 06/09/20 17:39 06/09/20 18:01 Temperature 98.2 F Temperature Source Oral Pulse Rate [Right Brachial] 68 72 64 Respiratory Rate 18 Blood Pressure [Right Arm] 141/58 H 141/58 H 139/50 L Blood Pressure Mean [Right Arm] 85 85 79 Blood Pressure Source [Right Arm] Automatic Cuff Automatic Cuff Automatic Cuff Blood Pressure Position [Right Arm] Sitting Sitting 02 Sat by Pulse Oximetry 94 L 98 94 L Oxygen Delivery Method Room Air Room Air Room Air Oxygen Flow Rate (LPM) 06/09/20 18:30 06/09/20 19:00 Temperature Temperature Source Pulse Rate [Right Brachial] 70 58 L Respiratory Rate Blood Pressure [Right Arm] 135/75 136/65 Blood Pressure Mean [Right Arm] 95 88 Blood Pressure Source [Right Arm] Automatic Cuff Automatic Cuff Blood Pressure Position [Right Arm] Sitting Sitting 02 Sat by Pulse Oximetry 92 L 99 Oxygen Delivery Method Nasal Cannula Nasal Cannula Oxygen Flow Rate (LPM) 2 2 Orders (Tests/Meds): ORDERS Category Date Time Status XR ankle RT min 3V Stat Exams 06/09/20 17:42 Taken XR elbow RT min 3V Stat Exams 06/09/20 17:45 Taken XR foot RT min 3V Stat Exams 06/09/20 17:42 Taken XR tibia fibula RT 2V Stat Exams 06/09/20 17:42 Taken Medical Decision Narrative: 79-year-old male presenting with right ankle pain after a ground-level fall. No head strike or loss of consciousness. X-rays of the right hip/fib, ankle and foot demonstrated a nondisplaced right fibular fracture. Patient will take [id number] anti-inflammatories/Tylenol for pain at home and we will place him in a short leg splint and have him follow-up with orthopedics. He has a walker at home and he will remain nonweightbearing to the affected extremity until cleared by orthopedics. General Adult HPI - General Chief complaint: PAIN Stated complaint: AO 06/09/20 Fell , injured r arm, ankle Time Seen by Provider: 06/09/20 17:40 Mode of Arrival: Wheelchair Limitations: No Limitations Description of Symptoms (Recalled from ER Triage Doc. by RN): Right ankle pain after falling - History of Present Illness HPI narrative: 79-year-old male presenting 4 hours after a ground-level mechanical fall whereby he slipped on some acorns and twisted his right ankle and landed on his right elbow. He has mi
[2020-06-09 18:01] VITALS: BP 139/50; PULSE 64; O2SAT 94
[2020-06-09 18:30] VITALS: BP 135/75; PULSE 70; O2SAT 92
[2020-06-09 19:00] VITALS: BP 136/65; PULSE 58; O2SAT 99
[2020-06-09 19:36] VITALS: BP 148/88; PULSE 89; RESP 15; TEMP 36.7; O2SAT 94
== END 2020-06-09 19:41 | disposition home or self-care (01) ==
PROVIDERS: Emergency Provider Physician Assistant; PCP Family Medicine
DX: S82.434A Nondisplaced oblique fracture of shaft of right fibula, initial encounter for closed fracture (principal); W01.0XXA Fall on same level from slipping, tripping and stumbling without subsequent striking against object, initial encounter; Y92.017 Garden or yard in single-family (private) house as the place of occurrence of the external cause; I10 Essential (primary) hypertension; E11.9 Type 2 diabetes mellitus without complications; I48.0 Paroxysmal atrial fibrillation; I50.9 Heart failure, unspecified; I25.10 Atherosclerotic heart disease of native coronary artery without angina pectoris; E78.5 Hyperlipidemia, unspecified; N28.9 Disorder of kidney and ureter, unspecified; K21.9 Gastro-esophageal reflux disease without esophagitis; J44.9 Chronic obstructive pulmonary disease, unspecified; I25.2 Old myocardial infarction; Z87.891 Personal history of nicotine dependence; Z79.899 Other long term (current) drug therapy; Z88.0 Allergy status to penicillin
CPT/HCPCS: 73080; 73590; 73610; 73630; 99283

== ENCOUNTER → 2020-06-16 16:29 | Outpatient (CLI) | payer MEDICARE, OTHER, SELFPAY ==
--- NOTE | 2020-06-16 16:36 | XR_ITS ---
PROCEDURE: XR ANKLE RT MIN 3V CLINICAL INDICATION: right ankle fracture/ cast applied COMPARISON: CR XR TIBIA FIBULA RT 2V from 06/09/2020 FINDINGS: There is a cast in place. A nondisplaced oblique fracture involves the distal fibula with good alignment. The ankle mortise is preserved. IMPRESSION: No change nondisplaced distal fibular fracture Dictated by: Claudio Alamo MD 06/16/2020 16:55 Claudio Alamo MD in [place] 06/16/2020 16:55
== END ==
PROVIDERS: PCP Family Medicine; Visit Provider Orthopaedic Surgery
DX: S82.891A Other fracture of right lower leg, initial encounter for closed fracture (principal)
CPT/HCPCS: 73610

== ENCOUNTER → 2020-06-23 10:21 | Outpatient (CLI) | payer MEDICARE, OTHER, SELFPAY ==
--- NOTE | 2020-06-23 10:30 | XR_ITS ---
PROCEDURE: XR ANKLE RT MIN 3V CLINICAL INDICATION: right ankle fracture; xrays in cast Follow-up fracture COMPARISON: CR XR ANKLE RT MIN 3V from 06/16/2020 FINDINGS: There is a cast in place stabilizing the right distal fibular fracture with good alignment. Fracture line is still visible. IMPRESSION: No change good alignment lateral fibular fracture with cast in place Dictated by: Claudio Alamo MD 06/23/2020 15:45 Claudio Alamo MD in [place] 06/23/2020 15:45
== END ==
PROVIDERS: PCP Family Medicine; Visit Provider Orthopaedic Surgery
DX: S82.61XA Displaced fracture of lateral malleolus of right fibula, initial encounter for closed fracture (principal)
CPT/HCPCS: 73610

== ENCOUNTER → 2020-07-21 14:14 | Outpatient (CLI) | payer MEDICARE, OTHER, SELFPAY ==
--- NOTE | 2020-07-21 14:20 | XR_ITS ---
PROCEDURE: XR ANKLE RT MIN 3V CLINICAL INDICATION: RT ankle fracture; OUT OF CAST Follow-up fracture COMPARISON: CR XR ANKLE RT MIN 3V from 06/09/2020 CR XR ANKLE RT MIN 3V from 06/16/2020 DX XR ANKLE RT MIN 3V from 06/23/2020 FINDINGS: There is a healing oblique fracture involving the distal shaft of the fibula. Fracture line is still visible. Ankle mortise appears preserved. The cast has been removed. IMPRESSION: Healing nondisplaced oblique distal fibular fracture Dictated by: Claudio Alamo MD 07/21/2020 14:54 Claudio Alamo MD in [place] 07/21/2020 14:54
== END ==
PROVIDERS: PCP Family Medicine; Visit Provider Orthopaedic Surgery
DX: S82.61XA Displaced fracture of lateral malleolus of right fibula, initial encounter for closed fracture (principal)
CPT/HCPCS: 73610

== ENCOUNTER 2020-07-21 15:11 | Outpatient (RCR) | payer MEDICARE, OTHER, SELFPAY | END 2020-07-21 15:40 | disposition home or self-care (01) | LOC: PT 15:11 | PROVIDERS: Visit Provider Orthopaedic Surgery | DX: S82.61XA Displaced fracture of lateral malleolus of right fibula, initial encounter for closed fracture (principal) | CPT/HCPCS: 97760 ==

== ENCOUNTER 2020-07-29 08:49 | Outpatient (RCR) | payer MEDICARE, OTHER, SELFPAY ==
--- NOTE | 2020-07-29 09:25 | HMH.PTOPEV ---
PT Outpatient Evaluation Rehab PT Outpatient Evaluation Start: 07/29/20 09:17 Freq: Status: Active Protocol: Document 07/29/20 09:17 DILIP (Rec: 07/29/20 09:25 DILIP [id number]) Electronically Signed By Jhon Vazquez, PT 07/29/20 09:17 Outpatient Therapy Subjective History Subjective History Pt presents s/p R ankle fx, injury ~4 weeks ago. Pt reports improved R ankle pain since independently D/Cing cam walker. Pt reports ambulating in regular boots is 'more comfortable', and reports ' very little pain, and I'm not sure I even need therapy'. Pt reports some intermittent lateral aspect R ankle/foot pain. Chief Complaint Pain,Stiff,Weakness Symptom Type Ache,Dull Symptoms Relieved By Activity Symptoms Aggravated By Walking Prior Functional Limitations Walking,Stairs Current Functional Limitations Walking,Stairs Symptom Description Intermittent Level of pain today (0-10) 0 Pain scale - at its best (0-10) 0 Pain scale - at its worst (0-10) 3 Ankle/Foot Eval Gait Observation General Gait Pattern Observation Antalgic Gait Palpation Tenderness right Ankle/Foot Palpation Findings Tenderness Ankle/Foot Palpation Overall Comment 1-2/4 PTF TTP positive CF TTP positive ROM Ankle/Foot Dorsiflexion w/Knee Extended 0-10 Active Range Motion (degrees) Ankle/Foot Plantar Flexion Active Range 0-35 of Motion (degrees) Ankle/Foot Eversion Active Range of 0-10 Motion (degrees) Ankle/Foot Inversion Active Range of 0-30 Motion (degrees) MMT Ankle Dorsiflexion Strength Grade 4 Good Ankle Plantarflexion Strength Grade 4 Good Foot Eversion Strength Grade 4- Good- Foot Inversion Strength Grade 4- Good- Outpatient Therapy Assessment Impairments Problems/Impairmments Palpation Tenderness,Impaired Range of Motion,Impaired Strength,Impaired Gait Pattern ,Impaired Walking,Impaired Stair Climbing,Subjective C/O Pain,Impaired Self Care/Self Management Prognosis Rehab Potential Good Clinical Impression Consistent with Diagnosis Yes Short Term Goals Number of Weeks 4 Decreased Palpation Tenderness Yes: 0-1/4 Increase Range of Motion Yes: WFL
== END 2020-07-29 08:55 | disposition home or self-care (01) ==
LOC: PT 08:49
PROVIDERS: PCP Family Medicine; Visit Provider Orthopaedic Surgery
DX: S82.64XD Nondisplaced fracture of lateral malleolus of right fibula, subsequent encounter for closed fracture with routine healing (principal)
CPT/HCPCS: 97163

== ENCOUNTER 2020-10-08 23:03 | Inpatient (IN) | payer OTHER, MEDICARE, SELFPAY ==
[2020-10-08 23:04] VITALS: BP 156/81; PULSE 73; RESP 34; O2SAT 78; BMI 34.4
--- NOTE | 2020-10-08 23:26 | ECG_ITS ---
APPROVED REPORT Exam: Resting ECG HR:87 bpm ECG Measurements Heart Rate 87 AXES QRSd 90 QRS -29 QT 392 T 130 QTc 471 Conclusion Atrial fibrillation with premature ventricular or aberrantly conducted complexes Late R wave progression with IV conduction delay Abnormal ECG Electronically signed by : Rikki Stewrat, 10/09/2020 08:51:54
--- NOTE | 2020-10-08 23:30 | HMH.EDGENADL ---
ED Disposition Clinical Impression: Respiratory failure with hypoxia Qualifiers: Chronicity: acute on chronic Qualified Code(s): J96.21 - Acute and chronic respiratory failure with hypoxia COPD (chronic obstructive pulmonary disease) Qualifiers: COPD type: COPD with acute exacerbation Qualified Code(s): J44.1 - Chronic obstructive pulmonary disease with (acute) exacerbation CHF (congestive heart failure) Qualifiers: Heart failure type: unspecified Heart failure chronicity: unspecified Qualified Code(s): I50.9 - Heart failure, unspecified Disposition: Admitted As Inpatient Condition on Discharge: Serious Referrals: Colby Quan MD [Primary Care Provider] - Time of Disposition: : - Critical Care Critical Care Time: Yes Attestation: On 10/08/20, the high probability of a clinically significant, sudden or life threatening deterioration of the following system(s) required my full and direct attention, intervention and personal management. The time I documented below is in addition to time spent performing reported procedures but includes the following listed in this critical care notation. Total Critical Care Time: 30 Vital system(s) involved:: Circulatory Failure, Central Nervous System, Respiratory Failure, Shock (Hemorrhage) My critical care processes included: Assessment & monitoring of V/S, Initial and Re-exams, Data Review/Interpretation, Coordinating Care, Medication Orders and management, Documentation Medical Decision Making - Medical Records Medical records reviewed: Yes: I reviewed the patient's medical records. - Han Inquiry Pt receiving controlled substance: No Vital Signs: 10/08/20 23:04 10/08/20 23:36 10/09/20 00:01 Temperature 101.0 F H Temperature Source Rectal Pulse Rate [Left Radial] 73 78 Respiratory Rate 34 H 28 H Blood Pressure [Right Arm] 156/81 H 153/67 H Blood Pressure Mean [Right Arm] 106 95 Blood Pressure Source [Right Arm] Automatic Cuff Automatic Cuff Blood Pressure Position [Right Arm] Sitting Supine 02 Sat by Pulse Oximetry 78 L 99 Oxygen Delivery Method Room Air BiPAP 10/09/20 00:30 10/09/20 01:00 Temperature Temperature Source Pulse Rate [Left Radial] 71 68 Respiratory Rate 23 22 Blood Pressure [Right Arm] 129/69 132/96 H Blood Pressure Mean [Right Arm] 89 108 Blood Pressure Source [Right Arm] Automatic Cuff Automatic Cuff Blood Pressure Position [Right Arm] Supine Supine 02 Sat by Pulse Oximetry 99 100 Oxygen Delivery Method BiPAP BiPAP - Lab Data Lab Results 10/08/20 23:20: WBC 10.9 H, RBC 3.99 L, Hgb 11.1 L, Hct 35.5 L, MCV 88.8, MCH 27.7, MCHC 31.2 L, RDW 16.0, Plt Count 192, MPV 10.6 H, Neut % (Auto) 83.2 H, Lymph % (Auto) 8.9 L, [place] % (Auto) 6.7, Eos % (Auto) 0.9, Baso % (Auto) 0.2, Neut # (Auto) 9.0 H, Lymph # (Auto) 1.0, [place] # (Auto) 0.7, Eos # (Auto) 0.1, Baso # (Auto) 0.0 10/08/20 23:20: Sodium 138, Potassium 4.8, Chloride 101, Carbon Dioxide 26, Anion Gap 15.8 H, BUN 20, Creatinine 1.30 H, Estimated Creat Clear 52, Estimated GFR 53 L, Est GFR ( Amer) 64, Glucose 233 H, Calcium 9.5, Troponin I < 0.01, NT-Pro-B Natriuret Pep 3560 H 10/08/20 23:20: Lactate 2.4 H 10/08/20 23:29: Specimen Source Left radial, O2 % 60, ABG pH 7.29 L, ABG pCO2 41.5, ABG pO2 84.3, ABG HCO3 19.6 L, ABG Total CO2 20.9 L, ABG O2 Saturation 94, ABG Base Excess -7.0 L, Claudio Test Acceptable, Vent Rate 20 10/09/20 01:07: Specimen Source Right radial, O2 % 50, ABG pH 7.34 L, ABG pCO2 43.9, ABG pO2 108.4 H, ABG HCO3 23.2, ABG Total CO2 24.6, ABG O2 Saturation 97, ABG Base Excess -2.5 L, Claudio Test Acceptable, Vent Rate 20 10/09/20 02:10: Troponin I < 0.01 10/09/20 02:39: Urine Color Yellow, Urine Appearance Clear, Urine pH 5.5, Ur Specific [place] 1.020, Urine Protein Trace, Urine Glucose (UA) Negative, Urine Ketones Negative, Urine Blood Negative, Urine Nitrate Negative, Urine Bilirubin Negative, Urine Urobilinogen 0.2, Ur Leukocyte Esterase Negative Result diagr
[2020-10-08 23:32] LABS: ABG HCO3 19.6 mmhg (22.0-26.0); ABG Oxygen Saturation 94 % (90-100); ABG PCO2 41.5 mmhg (35.0-45.0); ABG PH 7.29 mmol/L (7.35-7.45); ABG PO2 84.3 mmhg (80-100); ABG TCO2 20.9 mmhg (23-27)
[2020-10-08 23:33] LABS: Oxygen 60 %
[2020-10-08 23:34] LABS: Allen's Test Acceptable; Pressure Support 18/8; Source Left Radial; Vent Rate 20
[2020-10-08 23:36] VITALS: TEMP 38.3
[2020-10-08 23:40] LABS: Basophils % 0.2 % (0.1-2.0); Eosinophils # 0.1 K/mm3 (0.0-0.4); Eosinophils % 0.9 % (0.1-12.0); Hematocrit 35.5 % (42.0-52.0); Hemoglobin 11.1 g/dL (14.1-18.0); Lymphocytes % 8.9 % (10-50); Mean Corpuscular HGB Conc 31.2 g/dL (31.8-35.4); Mean Corpuscular Hemoglobin 27.7 pg (27.0-31.2); Mean Corpuscular Volume 88.8 fl (80-94); Mean Platelet Volume 10.6 fl (7.4-10.4); Monocytes # 0.7 K/mm3 (0.1-1.0); Monocytes % 6.7 % (1.7-9.3); Neutrophils % 83.2 % (37.0-80.0); Platelet Count 192 K/mm3 (142-424); Red Blood Count 3.99 M/mm3 (4.60-6.20); White Blood Count 10.9 K/mm3 (4.8-10.8)
[2020-10-08 23:41] LABS: Chloride 101 mmol/L (98-107); Potassium 4.8 mmoL/L (3.5-5.1); Sodium 138 mmol/L (136-145)
[2020-10-08 23:44] LABS: Anion Gap 15.8 mEq/L (5-15); Blood Urea Nitrogen 20 mg/dl (9-20); Calcium 9.5 mg/dl (8.4-10.2); Carbon Dioxide 26 mmol/L (22.0-30.0); Creatinine Clearance Estimated 52 mL/min (50-200); Estimated Glomerular Filt Rate 53 ml/min (>60); GFR (African American) 64 ML/MIN (>60); Glucose 233 mg/dl (74-100)
[2020-10-08 23:46] VITALS: RESP 20; RESP 30
[2020-10-08 23:54] LABS: NT Pro Brain Natriuretic Pep. 3560 pg/mL (0-450)
[2020-10-09] VITALS (19 sets, daily range): BP systolic 103–153; BP diastolic 48–96; PULSE 60–79; RESP 16–28; TEMP 36.6–36.9; O2SAT 90–100; BMI 26.4; BMI 26.3
[2020-10-09] LABS: Troponin I < 0.01 ng/ml (0.00-0.034)
[2020-10-09 00:01] LABS: Lactic Acid 2.4 mmol/L (0.7-2.1)
--- NOTE | 2020-10-09 00:02 | XR_ITS ---
PROCEDURE: XR CHEST PORTABLE CLINICAL HISTORY: short of breath COMPARISON: CT CHESTWO CT chest wo con from 04/19/2018 CR XR CHEST PORTABLE from 05/08/2020 CR XR CHEST PORTABLE from 05/11/2020 CR XR CHEST 2V from 06/02/2020 FINDINGS: Cardiomegaly with mild pulmonary venous congestion and minimal interstitial edema consistent with CHF. Minimal thickening right minor fissure. No lobar consolidation or collapse. Faint opacity overlies the left mid lower lung zone laterally the and may be due to a pleural lipoma noted on the prior CT scan No acute bony abnormalities. IMPRESSION: Mild CHF Dictated by: Claudio Alamo MD 10/09/2020 05:35 Claudio Alamo MD in [place] 10/09/2020 05:35
[2020-10-09 01:11] LABS: ABG Base Excess -2.5 mmol/L (-2.4-2.3); ABG HCO3 23.2 mmhg (22.0-26.0); ABG Oxygen Saturation 97 % (90-100); ABG PCO2 43.9 mmhg (35.0-45.0); ABG PH 7.34 mmol/L (7.35-7.45); ABG PO2 108.4 mmhg (80-100); ABG TCO2 24.6 mmhg (23-27)
[2020-10-09 01:12] LABS: Allen's Test Acceptable; Oxygen 50 %; Pressure Support 18/8; Source Right Radial; Vent Rate 20
--- NOTE | 2020-10-09 01:44 | PC.NURSE ---
BiPap removed at 0140 and pt placed on 4LNC
[2020-10-09 02:46] LABS: Troponin I < 0.01 ng/ml (0.00-0.034)
[2020-10-09 02:51] LABS: Microscopic, Urine URINE MICROSCOPIC (MICROSCOPIC)
[2020-10-09 02:53] LABS: Appearance,Urine CLEAR (Clear); Bilirubin,Urine Negative (Negative); Blood, Urine Negative (Negative); Color,Urine YELLOW (Yellow); Glucose,Urine (UA) Negative (Negative); Ketones,Urine Negative (Negative); Leukocyte Esterase,Urine Negative (Negative); Nitrate,Urine Negative (Negative); PH,Urine 5.5 (5.0-8.5); Protein,Urine TRACE (Negative); Urobilinogen,Urine 0.2 EU/dl (0.2)
[2020-10-09 03:04] LABS: Reflex Lactic Add Lactic Reflex
[2020-10-09 03:09] LABS: Bacteria,Urine Trace /lpf
[2020-10-09 03:15] LABS: Lactic Acid Follow Up (RFLX 1) 0.6 mmol/L (0.7-2.1)
--- NOTE | 2020-10-09 03:56 | PC.NURSE ---
PT ARRIVED TO FLOOR VIA STRETCHER FROM ED WITH STAFF AT [phone]
--- NOTE | 2020-10-09 06:11 | PC.NURSE ---
PT IS RESTING IN BED. PT HAS NOT COMPLAINED OF SOA OR ANY DISCOMFORT SINCE ARRIVING TO THE FLOOR. PT WAS ABLE TO ANSWER ALL QUESTION DURING IS ADMISSION BUT WAS VERY [place]. PT STATES HE LIVES WITH DAUGHTER BUT IS ABLE TO DO OKAY WITH TAKING CARE OF HIMSELF WHEN HE FEELS WELL. PT'S HOME MEDICATIONS ARE LOCKED UP IN THE MED DRAWER. LUNG SOUNDS DIMINISHED WITH FINE CRACKLES IN THE BILATERAL BASES. ABDOMEN SOFT/ NON TENDER WITH ACTIVE BOWEL SOUNDS. O2 SATURATION 90% ON 4 L NC. NO SWELLING NOTED TO BLE. WILL CONTINUE TO MONITOR.
[2020-10-09 06:15] LABS: Basophils % 0.2 % (0.1-2.0); Eosinophils % 0.1 % (0.1-12.0); Hematocrit 32.6 % (42.0-52.0); Hemoglobin 10.5 g/dL (14.1-18.0); Lymphocytes # 0.6 K/mm3 (0.7-4.5); Mean Corpuscular HGB Conc 32.1 g/dL (31.8-35.4); Mean Corpuscular Hemoglobin 27.7 pg (27.0-31.2); Mean Corpuscular Volume 86.3 fl (80-94); Mean Platelet Volume 10.1 fl (7.4-10.4); Monocytes # 0.2 K/mm3 (0.1-1.0); Neutrophils # 6.4 K/mm3 (1.8-7.8); Neutrophils % 88.8 % (37.0-80.0); Platelet Count 150 K/mm3 (142-424); Red Blood Count 3.77 M/mm3 (4.60-6.20); Red Cell Distribution Width 15.9 % (11.5-17.5); White Blood Count 7.2 K/mm3 (4.8-10.8)
[2020-10-09 06:21] LABS: Anion Gap 14.1 mEq/L (5-15); Blood Urea Nitrogen 20 mg/dl (9-20); Carbon Dioxide 25 mmol/L (22.0-30.0); Chloride 104 mmol/L (98-107); Creatinine Clearance Estimated 57 mL/min (50-200); Estimated Glomerular Filt Rate 64 ml/min (>60); GFR (African American) 78 ML/MIN (>60); Glucose 149 mg/dl (74-100); Potassium 4.1 mmoL/L (3.5-5.1); Sodium 139 mmol/L (136-145)
[2020-10-09 06:30] LABS: MANUAL DIFFERENTIAL MANUAL DIFFERENTIAL (MANUAL DIFF)
[2020-10-09 06:42] LABS: Troponin I < 0.01 ng/ml (0.00-0.034)
[2020-10-09 06:57] LABS: Calcium 8.5 mg/dl (8.4-10.2)
[2020-10-09 07:28] LABS: Lymphocytes % 9 % (10-50); Monocytes % 2 % (2-9); Neutrophils % 89 % (42-76); Total Cells Counted 100
[2020-10-09 07:29] LABS: Platelet Estimate Normal; RBC Morphology Normal
--- NOTE | 2020-10-09 07:29 | HMH.PHAVTE ---
[facility] Pharmacy VTE Monitoring - Patient Demographics Admission date: 10/08/20 Report Date: 10/09/20 Time: 07:29 Allergies/Adverse Reactions: Patient Allergies Penicillins Allergy (Verified 10/05/20 15:16) Height: 1.7 m Weight: 76.374 kg Patient Problems: Current Active Problems COPD (chronic obstructive pulmonary disease) (Chronic) Congestive heart failure (Acute) Respiratory failure with hypoxia (Acute) - VTE Risk Labs: VTE Related Lab Results Hgb 10.5 g/dL (14.1-18.0) L 10/09/20 05:25 Hct 32.6 % (42.0-52.0) L 10/09/20 05:25 Plt Count 150 K/mm3 (142-424) 10/09/20 05:25 BUN 20 mg/dl (9-20) 10/09/20 05:25 Creatinine 1.10 mg/dl (0.66-1.25) 10/09/20 05:25 Estimated Creat Clear 57 mL/min (50-200) 10/09/20 05:25 VTE Score: 4 VTE Risk Level: Low Risk - Prophylaxis VTE Prophylaxis Ordered?: Yes Types of VTE Prophylaxis: TEDS Knee High, Pharmacological Location of Applied Device: Bilateral Lower Extremeties Pharmacologic Type: Other (ELIQUIS)
--- NOTE | 2020-10-09 08:17 | HMH.HP ---
*Admission Date: 10/08/20 <Alison Graves - 10/09/20 08:27> *Chief complaint: shortness of breath <Gustavo Gravesa - 10/09/20 08:27> *History of present illness: Mr. Kim is an 80-year-old male with a history of COPD, coronary artery disease, GERD, PVD, hyperlipidemia, renal artery stenosis, hypertension, TIA, type 2 diabetes, chronic A. fib, and chronic anemia who presented to the emergency department last night with dyspnea. The patient states he began getting more short of breath a few days ago. He used his nebulizer at home and this seemed to help slightly. His shortness of breath progressed last night and his daughter brought him to the emergency room. He states he has had more wheezing and uses his oxygen only at night at 2 L/min. He has had a cough with some productive sputum. He denies any chest pain, fevers, abdominal pain, or vomiting. He was evaluated in the emergency room and his initial oxygen saturations were in the 80s. He was placed on BiPAP. He had a fever of 101. He was started on Solu-Medrol, Rocephin, and Zithromax due to an elevated white blood cell count. His VBG showed slight CO2 retention but no significant acidosis. His BNP was greater than 3000, therefore he was given 40 mg of Lasix IV. His chest x-ray showed bilateral pulmonary edema but no infiltrates. His Covid was negative. He was able to be weaned off of the BiPAP and was admitted for further evaluation and management. This morning he is feeling better. He states that shortness of breath has improved. He is still wheezing and has a cough. He denies any pain. <StarAlison - 10/09/20 08:27> [facility] History I have reviewed the patient's past medical history: Yes <BradtrentAlison - 10/09/20 08:27> Medical History: Reports:: Arrhythmia, Atherosclerotic Heart Disease, Atrial Fibrillation, Congestive Heart Failure, Chronic Obstructive Pulmonary Disease (COPD), Coronary Artery Disease, Gall Bladder Disease, Gastroesophageal Reflux Disease(GERD), Home Oxygen, Hyperlipidemia, Hypertension, Lung Disease, Myocardial Infarction, Palpitations, Peripheral Artery Disease, Peripheral Vascular Disease, Renal Disease, Renal Insufficiency, Transient Ischemic Attacks (TIA), Ulcer, Urinary Tract Infection Denies:: Cancer, Diabetes Mellitus Type 1, Diabetes Mellitus Type 2, Hepatitis, Internal Pacemaker, MRSA, Seizures <Alison Graves 10/09/20 08:27> *Have you ever received a pneumonia vaccine?: Yes <Alison Graves 10/09/20 08:27> *Have you received a flu vaccine this season?: Yes <Alison Graves 10/09/20 08:27> Other Medical History: Reports: Anemia, Arthritis, Cataracts. Denies: Hypothyroidism, Thyroid Disease <Alison Graves 10/09/20 08:27> Laterality Cases: Bilateral: Myringotomy (Ear Tubes) <Alison Graves 10/09/20 08:27> Other Surgeries: Yes: Angiogram, CABG, Cardiac Catheterization, Cholecystectomy, Colonoscopy, Coronary Stent, Ureter Stent, Other. No: Pacemaker <Alison Graves 10/09/20 08:27> Amputation: No <Alison Graves 10/09/20 08:27> Fractures: No <Alison Graves 10/09/20 08:27> - *Social History Smoking Status: Former smoker <Alison Graves 10/09/20 08:27> Tobacco Type: cigarettes <Alison Graves 10/09/20 08:27> # Packs/Day (cigarettes): 1 <Alison Graves 10/09/20 08:27> #Yrs smoked (if former smoker): 30 <Alison Graves 10/09/20 08:27> Alcohol Intake: never <Alison Graves 10/09/20 08:27> Alcohol Intake Frequency:: a few times a month <Alison Graves 10/09/20 08:27> Substance Use Type: denies use <Alison Graves 10/09/20 08:27> *Occupational Status:: disabled <Alison Graves 10/09/20 08:27> Housing: house <Alison Graves 10/09/20 08:27> Household Members: family <Alison Graves 10/09/20 08:27> *Travel in the last 8 weeks: None <Alison Graves 10/09/20 08:27> Family Hx:: Coronary Artery Disease, Diabetes, Hyperlipidemia, Hypertension <Alison Graves - 10/09/20 08:27> Review of Systems - Constitutional Reports fatig
--- NOTE | 2020-10-09 11:07 | HMH.PHAINT ---
VERIFIED HOME MEDICATION LIST USING LISTS FROM [facility] AND OUTPATIENT PHARMACY
--- NOTE | 2020-10-09 17:35 | PC.NURSE ---
PT HAS SAT UP IN CHAIR MOST OF SHIFT. HAS NOT HAD ANY C/O SOA. PT REMAINS ON 4LNC, SATS RANGE BETWEEN 30-94%. PT HAS MARCELO CATH IN PLACE, DRAINING ADEQUATE AMOUNTS OF URINE. VSS. WILL CONT. TO MONITOR. CALL [facility] WITHIN REACH.
[2020-10-10] VITALS (8 sets, daily range): BP systolic 130–138; BP diastolic 49–81; PULSE 50–84; RESP 18–20; TEMP 36.6–36.7; O2SAT 83–98; BMI 26.7
--- NOTE | 2020-10-10 01:38 | PC.NURSE ---
PT IS RESTING IN BED. NO COMPLAINTS OF DISCOMFORT. ALERT AND ORIENTED X4. SHOWER AND LINEN CHANGE THIS SHIFT. O2 SATURATION 92-95% ON 2 L NC. LUNG SOUNDS DIMINISHED. ABDOMEN SOFT/NON TENDER WITH ACTIVE BOWEL SOUNDS. VSS. WILL CONTINUE TO MONITOR.
--- NOTE | 2020-10-10 08:13 | HMH.ACPN2 ---
Internal Medicine - PN: Subj *Date: 10/10/20 *Time: 08:53 Interval history: Patient feels a little better this morning, no new complaints. Exam Vital signs and Labs for Last 24 Hours: Temp Pulse Resp BP Pulse Ox 97.8 F 60 18 130/58 L 83 L 10/10/20 03:48 10/10/20 04:00 10/10/20 03:48 10/10/20 03:48 10/10/20 06:37 Vital Signs - 24 hr 10/09/20 10:37 10/09/20 12:00 10/09/20 13:19 Temperature Pulse Rate 70 Pulse Rate [Left Radial] Respiratory Rate Blood Pressure [Right Arm] 02 Sat by Pulse Oximetry 94 L 95 10/09/20 15:20 10/09/20 16:00 10/09/20 19:00 Temperature 98.5 F Pulse Rate 70 Pulse Rate [Left Radial] 67 Respiratory Rate 16 Blood Pressure [Right Arm] 133/73 02 Sat by Pulse Oximetry 94 L 98 10/09/20 20:00 10/10/20 00:00 10/10/20 03:48 Temperature 98.4 F 98.1 F 97.8 F Pulse Rate 70 70 Pulse Rate [Left Radial] 79 65 52 L Respiratory Rate 18 18 18 Blood Pressure [Right Arm] 126/82 136/60 130/58 L 02 Sat by Pulse Oximetry 95 93 L 95 10/10/20 04:00 10/10/20 06:37 Temperature Pulse Rate 60 Pulse Rate [Left Radial] Respiratory Rate Blood Pressure [Right Arm] 02 Sat by Pulse Oximetry 83 L I & O for Last 24 hours: Intake & Output 10/07/20 10/08/20 10/09/20 10/10/20 23:59 23:59 23:59 23:59 Intake Total 2910 / 2910 Output Total 4400 / 4400 850 / 850 Balance -1490 / -1490 -850 / -850 Weight 182 lb 167 lb 8.821 oz 170 lb 9 oz - Constitutional no acute distress - *Routine HEENT Exam Head: Present: normocephalic Eye: Present: EOMI ENT: Present: mucous membranes moist - *Routine Neck Exam Present: supple. Absent: lymphadenopathy - *Routine Respiratory Exam Present: wheezes (bilateral expiratory), crackles (few bibasilar) - *Routine Cardiovascular Exam Present: RRR - *Routine Abdominal Exam Present: soft, normoactive bowel sounds. Absent: tenderness - *Routine Extremities Exam Absent: cyanosis, clubbing, edema - *Routine Skin Exam Present: warm. Absent: rash - *Routine Neurological Exam Present: alert, oriented X3 Assessment and Plan (1) Respiratory failure with hypoxia Status: Acute Qualifiers: Chronicity: acute on chronic Qualified Code(s): J96.21 - Acute and chronic respiratory failure with hypoxia Category: Medical Code(s): J96.91 - Respiratory failure, unspecified with hypoxia (2) Congestive heart failure Status: Acute Qualifiers: Heart failure type: unspecified Heart failure chronicity: unspecified Qualified Code(s): I50.9 - Heart failure, unspecified Category: Medical Code(s): I50.9 - Heart failure, unspecified (3) COPD (chronic obstructive pulmonary disease) Status: Chronic Qualifiers: COPD type: COPD with acute exacerbation Qualified Code(s): J44.1 - Chronic obstructive pulmonary disease with (acute) exacerbation Category: Medical Code(s): J44.9 - Chronic obstructive pulmonary disease, unspecified (4) A-fib Status: Chronic Qualifiers: Atrial fibrillation type: longstanding persistent Qualified Code(s): I48.11 - Longstanding persistent atrial fibrillation Category: Medical Code(s): I48.91 - Unspecified atrial fibrillation (5) CAD (coronary artery disease) Status: Chronic Qualifiers: Coronary Disease-Associated Artery/Lesion type: [place] artery [place] vs. transplanted heart: [place] heart Associated angina: without angina Qualified Code(s): I25.10 - Atherosclerotic heart disease of [place] coronary artery without angina pectoris Category: Medical Code(s): I25.10 - Atherosclerotic heart disease of [place] coronary artery without angina pectoris (6) DM2 (diabetes mellitus, type 2) Status: Chronic Qualifiers: Diabetes mellitus chcf insulin use: unspecified chcf insulin use status Diabetes mellitus complication status: with other specified complication Qualified Code(s): E11.69 - Type 2 diabe
--- NOTE | 2020-10-10 18:09 | PC.NURSE ---
shift note: Pt has been stable. Spent most of the day in the chair. Is A&O. Montaño catheter noted. Tolerating a cardiac diet. Afib with PVCs on tele. On 2L NC with sats in high 90s. No complaints today.
--- NOTE | 2020-10-10 22:01 | PC.NURSE ---
He is A&Ox4. He is sitting up in the chair. He received PRN medication for a headache. F/c is patent and draining yello, celar urine. Abdominal distention noted. He reports his last BM was today 10/10/20.
[2020-10-11] VITALS: BP 127/56; PULSE 50; PULSE 55; RESP 16; TEMP 36.4; O2SAT 97
[2020-10-11 04:00] VITALS: BP 130/58; PULSE 50; PULSE 61; RESP 16; TEMP 36.4; O2SAT 96
[2020-10-11 05:00] VITALS: BMI 26.5
[2020-10-11 06:26] VITALS: O2SAT 98
[2020-10-11 07:06] LABS: Basophils % 0.3 % (0.1-2.0); Eosinophils % 0.2 % (0.1-12.0); Hematocrit 31.5 % (42.0-52.0); Hemoglobin 9.8 g/dL (14.1-18.0); Lymphocytes # 2.2 K/mm3 (0.7-4.5); Lymphocytes % 27.1 % (10-50); Mean Corpuscular HGB Conc 31.2 g/dL (31.8-35.4); Mean Corpuscular Hemoglobin 27.7 pg (27.0-31.2); Mean Corpuscular Volume 88.6 fl (80-94); Mean Platelet Volume 10.3 fl (7.4-10.4); Monocytes # 0.7 K/mm3 (0.1-1.0); Monocytes % 8.4 % (1.7-9.3); Neutrophils # 5.1 K/mm3 (1.8-7.8); Neutrophils % 63.9 % (37.0-80.0); Platelet Count 154 K/mm3 (142-424); Red Blood Count 3.55 M/mm3 (4.60-6.20); Red Cell Distribution Width 16.6 % (11.5-17.5)
[2020-10-11 07:13] LABS: Chloride 104 mmol/L (98-107)
[2020-10-11 07:14] LABS: Potassium 3.9 mmoL/L (3.5-5.1); Sodium 143 mmol/L (136-145)
[2020-10-11 07:17] LABS: Anion Gap 10.9 mEq/L (5-15); Blood Urea Nitrogen 29 mg/dl (9-20); Calcium 8.4 mg/dl (8.4-10.2); Carbon Dioxide 32 mmol/L (22.0-30.0); Creatinine Clearance Estimated 52 mL/min (50-200); Estimated Glomerular Filt Rate 58 ml/min (>60); GFR (African American) 70 ML/MIN (>60); Glucose 137 mg/dl (74-100)
[2020-10-11 08:00] VITALS: BP 140/55; PULSE 60; PULSE 63; RESP 18; TEMP 36.4; O2SAT 94
--- NOTE | 2020-10-11 10:21 | HMH.ACPN2 ---
Internal Medicine - PN: Subj *Date: 10/11/20 *Time: 10:21 Interval history: Patient feels better today. He has been off of O2, sats are 94% on Ra now, he still has a Montaño in place. Exam Vital signs and Labs for Last 24 Hours: Temp Pulse Resp BP Pulse Ox 97.5 F L 63 18 140/55 L 94 L 10/11/20 08:00 10/11/20 08:00 10/11/20 08:00 10/11/20 08:00 10/11/20 08:00 Laboratory Results - last 24 hr 10/11/20 06:06: WBC 8.0, RBC 3.55 L, Hgb 9.8 L, Hct 31.5 L, MCV 88.6, MCH 27.7, MCHC 31.2 L, RDW 16.6, Plt Count 154, MPV 10.3, Neut % (Auto) 63.9, Lymph % (Auto) 27.1, [place] % (Auto) 8.4, Eos % (Auto) 0.2, Baso % (Auto) 0.3, Neut # (Auto) 5.1, Lymph # (Auto) 2.2, [place] # (Auto) 0.7, Eos # (Auto) 0.0, Baso # (Auto) 0.0 10/11/20 06:06: Sodium 143, Potassium 3.9, Chloride 104, Carbon Dioxide 32 H D, Anion Gap 10.9, BUN 29 H D, Creatinine 1.20, Estimated Creat Clear 52, Estimated GFR 58 L, Est GFR ( Amer) 70, Glucose 137 H, Calcium 8.4 I & O for Last 24 hours: Intake & Output 10/08/20 10/09/20 10/10/20 10/12/20 23:59 23:59 23:59 00:59 Intake Total 2910 / 2910 1800 / 1800 905 / 905 Output Total 4400 / 4400 3150 / 3550 575 / 575 Balance -1490 / -1490 -1350 / -1750 330 / 330 Weight 182 lb 167 lb 8.821 oz 170 lb 9 oz 169 lb 1 oz Microbiology Reports for the Last 24 Hours: Microbiology 10/08/20 23:36 Blood Blood Culture - Preliminary NO GROWTH AFTER 48 HOURS 10/08/20 23:36 Blood Blood Culture - Preliminary NO GROWTH AFTER 48 HOURS - Constitutional no acute distress - *Routine HEENT Exam Head: Present: normocephalic Eye: Present: EOMI ENT: Present: mucous membranes moist - *Routine Neck Exam Present: supple. Absent: lymphadenopathy - *Routine Respiratory Exam Present: CTA bilaterally - *Routine Cardiovascular Exam Present: irregularly irregular - *Routine Abdominal Exam Present: soft, normoactive bowel sounds. Absent: tenderness - *Routine Extremities Exam Absent: cyanosis, clubbing, edema - *Routine Skin Exam Present: warm. Absent: rash - *Routine Neurological Exam Present: alert, oriented X3 Assessment and Plan (1) Respiratory failure with hypoxia Status: Acute Qualifiers: Chronicity: acute on chronic Qualified Code(s): J96.21 - Acute and chronic respiratory failure with hypoxia Category: Medical Code(s): J96.91 - Respiratory failure, unspecified with hypoxia (2) Congestive heart failure Status: Acute Qualifiers: Heart failure type: unspecified Heart failure chronicity: unspecified Qualified Code(s): I50.9 - Heart failure, unspecified Category: Medical Code(s): I50.9 - Heart failure, unspecified (3) COPD (chronic obstructive pulmonary disease) Status: Chronic Qualifiers: COPD type: COPD with acute exacerbation Qualified Code(s): J44.1 - Chronic obstructive pulmonary disease with (acute) exacerbation Category: Medical Code(s): J44.9 - Chronic obstructive pulmonary disease, unspecified (4) A-fib Status: Chronic Qualifiers: Atrial fibrillation type: longstanding persistent Qualified Code(s): I48.11 - Longstanding persistent atrial fibrillation Category: Medical Code(s): I48.91 - Unspecified atrial fibrillation (5) CAD (coronary artery disease) Status: Chronic Qualifiers: Coronary Disease-Associated Artery/Lesion type: [place] artery [place] vs. transplanted heart: [place] heart Associated angina: without angina Qualified Code(s): I25.10 - Atherosclerotic heart disease of [place] coronary artery without angina pectoris Category: Medical Code(s): I25.10 - Atherosclerotic heart disease of [place] coronary artery without angina pectoris (6) DM2 (diabetes mellitus, type 2) Status: Chronic Qualifiers: Diabetes mellitus terminologist insulin use: unspecified terminologist insulin use status Diabetes mellitus complication status: with othe
--- NOTE | 2020-10-11 10:38 | PC.NURSE ---
Room air sat 93-94%.
[2020-10-11 10:48] VITALS: O2SAT 97
[2020-10-11 12:00] VITALS: BP 150/60; PULSE 50; PULSE 58; RESP 18; TEMP 36.6; O2SAT 97
--- NOTE | 2020-10-14 14:41 | HMH.DCSUM ---
General - General Admission date:: 10/09/20 Discharge date: 10/11/20 HPI HPI: Mr. Kim is an 80-year-old male with a history of COPD, coronary artery disease, GERD, PVD, hyperlipidemia, renal artery stenosis, hypertension, TIA, type 2 diabetes, chronic A. fib, and chronic anemia who presented to the emergency department last night with dyspnea. The patient states he began getting more short of breath a few days ago. He used his nebulizer at home and this seemed to help slightly. His shortness of breath progressed last night and his daughter brought him to the emergency room. He states he has had more wheezing and uses his oxygen only at night at 2 L/min. He has had a cough with some productive sputum. He denies any chest pain, fevers, abdominal pain, or vomiting. He was evaluated in the emergency room and his initial oxygen saturations were in the 80s. He was placed on BiPAP. He had a fever of 101. He was started on Solu-Medrol, Rocephin, and Zithromax due to an elevated white blood cell count. His VBG showed slight CO2 retention but no significant acidosis. His BNP was greater than 3000, therefore he was given 40 mg of Lasix IV. His chest x-ray showed bilateral pulmonary edema but no infiltrates. His Covid was negative. He was able to be weaned off of the BiPAP and was admitted for further evaluation and management. This morning he is feeling better. He states that shortness of breath has improved. He is still wheezing and has a cough. He denies any pain. Hospital Course Hospital Course: Patient's chest x-ray showed mild CHF. He was given Lasix and his shortness of breath improved. His white blood cell count normalized and his renal function improved. His lactic acid also normalized. He had received his first Covid vaccine the day prior to admission which was thought to be the cause of his fever. He was saline locked and given another dose of Lasix and was continued on antibiotics. His respiratory status continued to improve. He was able to be weaned off his oxygen with sats in the 90s. His blood cultures returned negative and he was given 1 more dose of Lasix and was stable to be discharged. He will follow-up with Dr. Quan. Objective Vital signs: Temp Pulse Resp BP Pulse Ox 97.9 F 58 L 18 150/60 H 97 10/11/20 12:00 10/11/20 12:00 10/11/20 12:00 10/11/20 12:00 10/11/20 12:00 Narrative: - Constitutional no acute distress - *Routine HEENT Exam Head: Present: normocephalic Eye: Present: EOMI, PERRL ENT: Present: mucous membranes dry - *Routine Neck Exam Present: supple. Absent: lymphadenopathy - *Routine Respiratory Exam Present: decreased breath sounds, wheezes - *Routine Cardiovascular Exam Present: irregularly irregular - *Routine Abdominal Exam Present: soft, normoactive bowel sounds. Absent: tenderness - *Routine Extremities Exam Absent: cyanosis, clubbing, edema - *Routine Skin Exam Present: warm. Absent: rash - *Routine Neurological Exam Present: alert, oriented X3 DS: Diagnosis - Discharge Diagnosis (1) Respiratory failure with hypoxia Status: Acute (2) Congestive heart failure Status: Acute (3) COPD (chronic obstructive pulmonary disease) Status: Chronic (4) A-fib Status: Chronic (5) CAD (coronary artery disease) Status: Chronic (6) DM2 (diabetes mellitus, type 2) Status: Chronic (7) HLD (hyperlipidemia) Status: Chronic (8) HTN (hypertension) Status: Chronic (9) half-way current use 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 therapy Status: Chronic (10) RHONDA (renal artery stenosis) Status: Chronic (11) Fever Status: Acute Discharge Plan - Patient Discharge Instructions ACTIVITY: Continue current activity DIET: low salt diet Patient Instructions: DI for Heart Failure, DI for Chronic Obstructive Pulmonary Disease - Follow up Plan Follow up with: Colby Quan MD [[facility]
== END 2020-10-11 14:40 | disposition home or self-care (01) | DRG 189 ==
LOC: ER 10-09 01:44 → 2ND 10-09 10:28
PROVIDERS: Admitting Provider Family Medicine; Emergency Provider Emergency Medicine; PCP Family Medicine; Visit Provider Family Medicine
DX: J96.21 Acute and chronic respiratory failure with hypoxia (principal); I48.11 Longstanding persistent atrial fibrillation; J44.1 Chronic obstructive pulmonary disease with (acute) exacerbation; I70.1 Atherosclerosis of renal artery; Z79.01 Long term (current) use 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s; I11.0 Hypertensive heart disease with heart failure; I50.9 Heart failure, unspecified; Z87.891 Personal history of nicotine dependence; Z95.5 Presence of coronary angioplasty implant and graft; E11.9 Type 2 diabetes mellitus without complications; Z79.84 Long term (current) use of oral hypoglycemic drugs
CPT/HCPCS: 36415; 71045; 80048; 81001; 82803; 83605; 83880; 84484; 85007; 85025; 87040; 93005; 94640; 96365; 96367; 96375; 99285; J0456; U0003

== ENCOUNTER 2020-11-29 06:21 | Inpatient (IN) | payer OTHER, MEDICARE, SELFPAY ==
[2020-11-29] VITALS (14 sets, daily range): BP systolic 113–150; BP diastolic 51–105; PULSE 52–65; RESP 18–28; TEMP 36.2–36.5; O2SAT 78–95; BMI 27.4; BMI 27.6
--- NOTE | 2020-11-29 06:27 | ECG_ITS ---
APPROVED REPORT Exam: Resting ECG HR:67 bpm ECG Measurements Heart Rate 67 AXES QRSd 96 QRS 37 QT 416 T 124 QTc 439 Conclusion Atrial fibrillation with premature ventricular or aberrantly conducted complexes Low voltage QRS Cannot rule out Anterior infarct, age undetermined ST & T wave abnormality, consider lateral ischemia or digitalis effect Abnormal ECG Electronically signed by : Rikki Stewart, 12/01/2020 08:52:16
--- NOTE | 2020-11-29 06:45 | XR_ITS ---
PROCEDURE INFORMATION: Exam: XR Chest Exam date and time: 11/29/2020 6:45 AM Age: 80 years old Clinical indication: Patient HX: Chest pain , SOA , wheezing TECHNIQUE: Imaging protocol: XR of the chest. Views: 2 views. COMPARISON: CR XR CHEST PORTABLE 10/09/2020 12:44 AM FINDINGS: Lungs: Patchy bilateral opacities may represent multifocal pneumonia. Pleural spaces: Unremarkable. No pleural effusion. No pneumothorax. Heart/Mediastinum: Stable cardiac silhouette Bones/joints: Compression fractures of unknown age in the thoracic spine IMPRESSION: Patchy bilateral opacities may represent multifocal pneumonia.
[2020-11-29 06:54] LABS: ABG Base Excess -4.3 mmol/L (-2.4-2.3); ABG HCO3 22.2 mmhg (22.0-26.0); ABG Oxygen Saturation 87 % (90-100); ABG PCO2 46.3 mmhg (35.0-45.0); ABG PO2 59.2 mmhg (80-100); ABG TCO2 23.6 mmhg (23-27)
[2020-11-29 06:56] LABS: Allen's Test Acceptable; Oxygen 2 LPM NC %; Source Left Radial
[2020-11-29 07:15] LABS: Basophils % 0.4 % (0.1-2.0); Eosinophils # 0.1 K/mm3 (0.0-0.4); Eosinophils % 1.5 % (0.1-12.0); Hematocrit 36.6 % (42.0-52.0); Hemoglobin 11.4 g/dL (14.1-18.0); Lymphocytes # 1.4 K/mm3 (0.7-4.5); Lymphocytes % 17.3 % (10-50); Mean Corpuscular HGB Conc 31.1 g/dL (31.8-35.4); Mean Corpuscular Hemoglobin 27.9 pg (27.0-31.2); Mean Corpuscular Volume 89.8 fl (80-94); Mean Platelet Volume 10.4 fl (7.4-10.4); Monocytes # 0.6 K/mm3 (0.1-1.0); Monocytes % 7.4 % (1.7-9.3); Neutrophils # 6.1 K/mm3 (1.8-7.8); Neutrophils % 73.4 % (37.0-80.0); Platelet Count 173 K/mm3 (142-424); Red Blood Count 4.07 M/mm3 (4.60-6.20); Red Cell Distribution Width 16.3 % (11.5-17.5); White Blood Count 8.4 K/mm3 (4.8-10.8)
[2020-11-29 07:20] LABS: Adenovirus,PCR Not Detected (NotDetected); Bordetella Pertussis Not Detected (NotDetected); Chlamydophila Pneumoniae, PCR Not Detected (NotDetected); Coronavirus 19, PCR Not Detected (NotDetected); Coronavirus 229E Not Detected (NotDetected); Coronavirus NL63 Not Detected (NotDetected); Coronavirus OC43 Not Detected (NotDetected); Coronovirus HKU1,PCR Not Detected (NotDetected); Human Metapneumovirus Not Detected (NotDetected); Influenza A, PCR Not Detected (NotDetected); Influenza AH1, 2009 Not Detected (NotDetected); Influenza AH1, PCR Not Detected (NotDetected); Influenza AH3,PCR Not Detected (NotDetected); Influenza B, PCR Not Detected (NotDetected); Mycoplasma Pneumoniae, PCR Not Detected (NotDetected); Parainfluenza 1, PCR Not Detected (NotDetected); Parainfluenza 2, PCR Not Detected (NotDetected); Parainfluenza 3, PCR Not Detected (NotDetected); Parainfluenza 4, PCR Not Detected (NotDetected); Respiratory Syncytial Virus Not Detected (NotDetected); Rhinovirus/Enterovirus Not Detected (NotDetected)
[2020-11-29 07:23] LABS: Alanine Aminotransferase 14 U/L (12-78); Albumin Level 4.4 g/dl (3.5-5.0); Albumin/Globulin Ratio 1.5 (1.1-1.8); Alkaline Phosphatase 85 U/L (38-126); Anion Gap 12.6 mEq/L (5-15); Aspartate Amino Transferase 18 U/L (17-59); Bilirubin,Total 2.2 mg/dl (0.2-1.3); Blood Urea Nitrogen 13 mg/dl (9-20); Calcium 9.2 mg/dl (8.4-10.2); Carbon Dioxide 27 mmol/L (22.0-30.0); Chloride 106 mmol/L (98-107); Creatinine Clearance Estimated 57 mL/min (50-200); Estimated Glomerular Filt Rate 64 ml/min (>60); GFR (African American) 78 ML/MIN (>60); Globulin 2.9 g/dL (1.3-3.2); Glucose 145 mg/dl (74-100); Potassium 4.6 mmoL/L (3.5-5.1); Sodium 141 mmol/L (136-145); Total Protein,Serum 7.3 g/dl (6.3-8.2)
[2020-11-29 07:38] LABS: NT Pro Brain Natriuretic Pep. 3700 pg/mL (0-450); Troponin I < 0.01 ng/ml (0.00-0.034)
[2020-11-29 07:42] LABS: Procalcitonin 0.041 ng/mL (0.0-2.0)
[2020-11-29 07:49] LABS: Erythrocyte Sedimentation Rate 20 mm/hr (0-20)
--- NOTE | 2020-11-29 07:57 | HMH.EDSOB ---
ED Disposition Clinical Impression: custodial current use 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 therapy, Overweight (BMI 25.0-29.9), Acute exacerbation of chronic obstructive airways disease CAP (community acquired pneumonia) Qualifiers: Laterality: unspecified laterality Qualified Code(s): J18.9 - Pneumonia, unspecified organism Congestive heart failure Qualifiers: Heart failure type: unspecified Heart failure chronicity: acute on chronic Qualified Code(s): I50.9 - Heart failure, unspecified CAD (coronary artery disease) Qualifiers: Coronary Disease-Associated Artery/Lesion type: [place] artery [place] vs. transplanted heart: [place] heart Associated angina: with unspecified form of angina Qualified Code(s): I25.119 - Atherosclerotic heart disease of [place] coronary artery with unspecified angina pectoris A-fib Qualifiers: Atrial fibrillation type: longstanding persistent Qualified Code(s): I48.11 - Longstanding persistent atrial fibrillation Disposition: Admitted As Inpatient Condition on Discharge: Good Referrals: Colby Quan MD [Primary Care Provider] - - Critical Care Critical Care Time: No Attestation: On 11/29/20, the high probability of a clinically significant, sudden or life threatening deterioration of the following system(s) required my full and direct attention, intervention and personal management. The time I documented below is in addition to time spent performing reported procedures but includes the following listed in this critical care notation. Medical Decision Making - Medical Records Medical records reviewed: Yes: I reviewed the patient's medical records. - Han Inquiry Pt receiving controlled substance: No Vital Signs: 11/29/20 06:33 11/29/20 07:07 Temperature 97.4 F L Temperature Source Oral Pulse Rate 53 L Pulse Rate [Right] 56 L Respiratory Rate 28 H Blood Pressure 137/102 H Blood Pressure [Right Arm] 150/71 H Blood Pressure Mean [Right Arm] 97 Blood Pressure Source [Right Arm] Automatic Cuff Blood Pressure Position [Right Arm] Supine 02 Sat by Pulse Oximetry 78 L 90 L Oxygen Delivery Method Room Air - Lab Data Lab results reviewed: Yes: I reviewed the patient's lab results. Lab Results 11/29/20 06:43: Specimen Source Left radial, O2 % 2 lpm nc, ABG pH 7.30 L, ABG pCO2 46.3 H, ABG pO2 59.2 L, ABG HCO3 22.2, ABG Total CO2 23.6, ABG O2 Saturation 87 L*, ABG Base Excess -4.3 L, Claudio Test Acceptable 11/29/20 06:56: WBC 8.4, RBC 4.07 L, Hgb 11.4 L, Hct 36.6 L, MCV 89.8, MCH 27.9, MCHC 31.1 L, RDW 16.3, Plt Count 173, MPV 10.4, Neut % (Auto) 73.4, Lymph % (Auto) 17.3, [place] % (Auto) 7.4, Eos % (Auto) 1.5, Baso % (Auto) 0.4, Neut # (Auto) 6.1, Lymph # (Auto) 1.4, [place] # (Auto) 0.6, Eos # (Auto) 0.1, Baso # (Auto) 0.0, ESR 20 11/29/20 06:56: Sodium 141, Potassium 4.6, Chloride 106, Carbon Dioxide 27, Anion Gap 12.6, BUN 13, Creatinine 1.10, Estimated Creat Clear 57, Estimated GFR 64, Est GFR ( Amer) 78, Glucose 145 H, Calcium 9.2, Total Bilirubin 2.2 H, AST 18, ALT 14, Alkaline Phosphatase 85, Troponin I < 0.01, C-Reactive Protein 8.0 H, NT-Pro-B Natriuret Pep 3700 H, Total Protein 7.3, Albumin 4.4, Globulin 2.9, Albumin/Globulin Ratio 1.5, Procalcitonin 0.041 Result diagrams: 11/29/20 06:56 11/29/20 06:56 Orders (Tests/Meds): ED MEDICATIONS Generic Name Dose Route Start Last Admin Trade Name Freq PRN Reason Stop Dose Admin Ceftriaxone Sodium 1 gm/ 50 mls @ 100 mls/hr 11/29/20 08:15 Sodium Chloride IV 12/13/20 08:14 Q24H DARA Protocol Discontinued Medications Generic Name Dose Route Start Last Admin Trade Name Freq PRN Reason Stop Dose Admin Albuterol/Ipratropium 3 ml 11/29/20 07:02 11/29/20 07:04 Ipratropium/Albuterol 3 Ml Neb IH 11/29/20 07:03 3 ml ONCE ONE Administration Aspirin 324 mg 11/29/20 06:45 11/29/20 06:59 Aspirin 81mg Chewable Tablet PO 11/29/20 06:46 324 mg ONCE ONE Administration Furosemide 40 mg 11/29/20 07
--- NOTE | 2020-11-29 08:41 | HMH.HP ---
*Admission Date: 11/29/20 *Chief complaint: Shortness of breath *History of present illness: 80 year old male with a history of CAD, CHF, COPD and diabetes, present to [facility] ER this morning complaining of shortness of breath. Patient states he felt fine when he went to bed last night but woke up at 4:30 am this morning short of breath. He had some associated chest tightness but no cough. He took a treatment of Duoneb via his nebulizer and got no relief so he then came to the ER. Patient states he is unsure of all of his medication but does not think he has been taking his diuretic. He's had no sick contacts and denies fever and chills. [facility] History Medical History: Reports:: Arrhythmia, Atherosclerotic Heart Disease, Atrial Fibrillation, Congestive Heart Failure, Chronic Obstructive Pulmonary Disease (COPD), Coronary Artery Disease, Gall Bladder Disease, Gastroesophageal Reflux Disease(GERD), Home Oxygen, Hyperlipidemia, Hypertension, Lung Disease, Myocardial Infarction, Palpitations, Peripheral Artery Disease, Peripheral Vascular Disease, Renal Disease, Renal Insufficiency, Transient Ischemic Attacks (TIA), Ulcer, Urinary Tract Infection Denies:: Cancer, Diabetes Mellitus Type 1, Diabetes Mellitus Type 2, Hepatitis, Internal Pacemaker, MRSA, Seizures *Have you ever received a pneumonia vaccine?: No *Have you received a flu vaccine this season?: Yes Other Medical History: Reports: Anemia, Arthritis, Cataracts. Denies: Hypothyroidism, Thyroid Disease Laterality Cases: Bilateral: Myringotomy (Ear Tubes) Other Surgeries: Yes: No Previous Surgery, Angiogram, CABG, Cardiac Catheterization, Cholecystectomy, Colonoscopy, Coronary Stent, Ureter Stent, Other. No: Pacemaker Amputation: No Fractures: No - *Social History Smoking Status: Former smoker Tobacco Type: cigarettes # Packs/Day (cigarettes): 1 #Yrs smoked (if former smoker): 30 Alcohol Intake: current Alcohol Intake Frequency:: a few times a month Substance Use Type: denies use *Occupational Status:: retired Housing: house Household Members: family *Travel in the last 8 weeks: None Family Hx:: Coronary Artery Disease, Diabetes, Hyperlipidemia, Hypertension Review of Systems - Constitutional Denies body ache(s), Denies chills, Denies fever(s) - Eyes Denies change in vision - ENT Reports abnormal hearing (uses hearing aids) - *Cardiovascular Reports leg swelling - *Respiratory Denies coughing up blood - *Genitourinary Denies difficulty urinating - *Musculoskeletal Denies back pain - Integumentary/Breasts Denies rash - *Neurologic Denies headache(s), Denies seizure-like activity - Psychiatric Denies anxiety - Endocrine Denies increased urination - Hematologic/Lymphatic Denies easy bleeding Meds Home Medications Medication Instructions Recorded Confirmed Type Atorvastatin Calcium [Lipitor 80mg 80 mg PO HS 09/10/17 11/29/20 History Tablet*] Tamsulosin HCl [Flomax 0.4mg 0.4 mg PO BID 09/10/17 11/29/20 History capsule] carvediloL [Carvedilol 25mg Tab] 25 mg PO BID 09/10/17 11/29/20 History lisinopril 20 mg tablet 20 mg PO BID 12/19/17 11/29/20 History apixaban 5 mg tablet 5 mg PO BID 01/29/18 11/29/20 History albuterol sulfate 90 mcg/actuation 2 puff INHALATION QID 03/26/18 11/29/20 History aerosol inhaler gabapentin 300 mg capsule 300 mg PO BID cap 01/20/20 11/29/20 History famotidine 40 mg tablet 40 mg PO HS tab 03/16/20 11/29/20 History amlodipine 10 mg tablet 10 mg PO DAILY #90 tab 04/17/20 11/29/20 Rx Ferrous Sulfate [Ferrous Sulfate 325 mg PO BID 05/15/20 11/29/20 History 325mg Tablet] Fluticasone/Umeclidin/Vilanter 1 puff IH DAILY 05/15/20 11/29/20 History [Trelegy Ellipta 100-62.5-25] Clopidogrel Bisulfate [Plavix] 75 mg PO DAILY 10/08/20 11/29/20 History Famotidine 40 mg PO HS 11/29/20 11/29/20 History Metformin HCl [Metformin HCl ER] 500 mg PO BID 11/29/20 11/29/20 History carvediloL [Carvedilol 25mg Tab] 25 mg PO BID 11/29
--- NOTE | 2020-11-29 08:52 | PC.NURSE ---
Celoron at BS
[2020-11-29 08:56] LABS: Lactic Acid 0.9 mmol/L (0.7-2.1)
--- NOTE | 2020-11-29 10:07 | PC.NURSE ---
report called to Bertha ARMENDARIZ
[2020-11-29 10:22] LABS: Troponin I < 0.01 ng/ml (0.00-0.034)
--- NOTE | 2020-11-29 10:28 | PC.NURSE ---
Pt arrived to the floor at this time.
[2020-11-29 12:39] LABS: POC Glucose,Bedside 164 (70-110)
--- NOTE | 2020-11-29 13:10 | HMH.PHAVTE ---
[facility] Pharmacy VTE Monitoring - Patient Demographics Admission date: 11/29/20 Report Date: 11/29/20 Time: 13:10 Allergies/Adverse Reactions: Patient Allergies Penicillins Allergy (Verified 10/05/20 15:16) Height: 1.68 m Weight: 77.678 kg Patient Problems: Current Active Problems CAD (coronary artery disease) (Chronic) Non compliance with medical treatment (Chronic) Congestive heart failure (Acute) A-fib (Chronic) Renal insufficiency (Chronic) Acute exacerbation of chronic obstructive airways disease (Acute) Community acquired pneumonia (Acute) History of peptic ulcer (Acute) Respiratory failure with hypoxia (Acute) Elevated brain natriuretic peptide (BNP) level (Acute) correction current use 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 therapy (Chronic) HTN (hypertension) (Chronic) HLD (hyperlipidemia) (Chronic) DM2 (diabetes mellitus, type 2) (Chronic) Overweight (BMI 25.0-29.9) (Acute) - VTE Risk Labs: VTE Related Lab Results Hgb 11.4 g/dL (14.1-18.0) L 11/29/20 06:56 Hct 36.6 % (42.0-52.0) L 11/29/20 06:56 Plt Count 173 K/mm3 (142-424) 11/29/20 06:56 BUN 13 mg/dl (9-20) 11/29/20 06:56 Creatinine 1.10 mg/dl (0.66-1.25) 11/29/20 06:56 Estimated Creat Clear 57 mL/min (50-200) 11/29/20 06:56 Was VTE Risk Assessment Performed: Yes VTE Score: 5 VTE Risk Level: Low Risk - Prophylaxis VTE Prophylaxis Ordered?: Yes Types of VTE Prophylaxis: TEDS Knee High, Pharmacological Location of Applied Device: Bilateral Lower Extremeties Pharmacologic Type: Other (ELIQUIS)
--- NOTE | 2020-11-29 13:11 | HMH.PHAINT ---
MEDICATION RECONCILIATION COMPLETED ON PATIENT USING EXTERNAL FILL HISTORY FROM PHARMACY AND PATIENT'S PACKAGED MEDICATIONS. PATIENT IS MEDICARE OBSERVATION, BUT COULD NOT USE PATIENT'S OWN MEDICATIONS SINCE NOT ALL MEDICATIONS WERE REORDERED. -MEDARDO ESTRADAD
[2020-11-29 13:18] LABS: Troponin I < 0.01 ng/ml (0.00-0.034)
--- NOTE | 2020-11-29 16:36 | PC.NURSE ---
PT IS RESTING IN BED. ALERT AND ORIENTED X4. PT HAS BEEN AMBULATING TO THE BATHROOM. O2 SATURATION HAS MAINTAINED 92-95% ON 2 L NC. ACCORDING TO PT'S DAUGHTER PT ONLY WEARS HIS OXYGEN AT NIGHTS AT HOME. PT IS VERY BIG [place]. LUNG SOUNDS DIMINISHED WITH SOME BILATERAL CRACKLES. ABDOMEN SOFT/NON TENDER WITH ACTIVE BOWEL SOUNDS. EATING AND DRINKING WELL. VSS. WILL CONTINUE TO MONITOR.
[2020-11-29 17:29] LABS: POC Glucose,Bedside 178 (70-110)
[2020-11-29 20:38] LABS: POC Glucose,Bedside 189 (70-110)
--- NOTE | 2020-11-29 21:23 | PC.NURSE ---
RA SAT AT REST=86%, RETURNED PT BACK ON 2L NC
[2020-11-30] VITALS (9 sets, daily range): BP systolic 114–149; BP diastolic 58–83; PULSE 59–70; RESP 18–28; TEMP 36.4–37.2; O2SAT 85–97; BMI 28.6
--- NOTE | 2020-11-30 03:57 | PC.NURSE ---
shift summary pts lung sounds are diminished with sats maintained 90% on above on 3L via NC, with a rate ranging from 18-20. pt uses bedside urinal and the toilet with clear, yellow in color urine. pt has had no complaints tonight denying nausea, vomiting, or diarrhea.
[2020-11-30 05:43] LABS: POC Glucose,Bedside 170 (70-110)
[2020-11-30 07:08] LABS: Basophils % 0.1 % (0.1-2.0); Hematocrit 34.1 % (42.0-52.0); Hemoglobin 10.5 g/dL (14.1-18.0); Lymphocytes # 0.6 K/mm3 (0.7-4.5); Lymphocytes % 11.3 % (10-50); Mean Corpuscular HGB Conc 30.8 g/dL (31.8-35.4); Mean Platelet Volume 10.3 fl (7.4-10.4); Monocytes # 0.1 K/mm3 (0.1-1.0); Neutrophils # 4.5 K/mm3 (1.8-7.8); Neutrophils % 86.4 % (37.0-80.0); Platelet Count 164 K/mm3 (142-424); Red Blood Count 3.75 M/mm3 (4.60-6.20); Red Cell Distribution Width 16.2 % (11.5-17.5); White Blood Count 5.2 K/mm3 (4.8-10.8)
[2020-11-30 07:15] LABS: Anion Gap 13.7 mEq/L (5-15); Blood Urea Nitrogen 21 mg/dl (9-20); Calcium 8.7 mg/dl (8.4-10.2); Carbon Dioxide 25 mmol/L (22.0-30.0); Chloride 107 mmol/L (98-107); Creatinine Clearance Estimated 60 mL/min (50-200); Estimated Glomerular Filt Rate 64 ml/min (>60); GFR (African American) 78 ML/MIN (>60); Glucose 155 mg/dl (74-100); Magnesium 1.8 mg/dl (1.6-2.3); Potassium 4.7 mmoL/L (3.5-5.1); Sodium 141 mmol/L (136-145)
[2020-11-30 07:35] LABS: MANUAL DIFFERENTIAL MANUAL DIFFERENTIAL (MANUAL DIFF)
[2020-11-30 07:36] LABS: Anisocytosis 2+; Lymphocytes % 1 % (10-50); Monocytes % 16 % (2-9); Neutrophils % 83 % (42-76); Platelet Estimate Normal; Total Cells Counted 100
[2020-11-30 07:37] LABS: Acanthocytes 1+; Hypochromasia 2+
--- NOTE | 2020-11-30 08:20 | HMH.ACPN2 ---
<Ana Garcia - Last Filed: 11/30/20 08:20> Internal Medicine - PN: Subj *Date: 11/30/20 *Time: 08:20 Interval history: Patient feels his breathing is better. He slept some. He ate all his breakfast. He has ambulated in the room. He is voiding QS. Laboratory data this a.m. show a hemoglobin of 10.5 hematocrit of 34.1 with white blood cell count 5200. Blood chemistries with normal electrolytes BUN 21 and creatinine 1.1. Exam Vital signs and Labs for Last 24 Hours: Temp Pulse Resp BP Pulse Ox 98.0 F 61 18 142/83 H 95 11/30/20 08:00 11/30/20 08:00 11/30/20 08:00 11/30/20 08:00 11/30/20 08:00 Laboratory Results - last 24 hr 11/29/20 07:15: Chlamy pneumoniae PCR Not detected, Adenovirus (PCR) Not detected, B. pertussis DNA (PCR) Not detected, Coronavirus OC43 (PCR) Not detected, Coronavirus HKU1 (PCR) Not detected, Coronavirus 229E (PCR) Not detected, SARS-CoV-2 (PCR) Not detected, Coronavirus NL63 (PCR) Not detected, Human Metapneumovir PCR Not detected, Influenza A (H1) PCR Not detected, Influ A (H1N1/09) PCR Not detected, Influenza A (H3) PCR Not detected, Influenza Type A (PCR) Not detected, Influenza Type B (PCR) Not detected, M. pneumoniae (PCR) Not detected, Parainfluenza 1 (PCR) Not detected, Parainfluenza 2 (PCR) Not detected, Parainfluenza 3 (PCR) Not detected, Parainfluenza 4 (PCR) Not detected, RSV (PCR) Not detected, Entero/Rhino (PCR) Not detected 11/29/20 08:20: Lactate 0.9 11/29/20 09:55: Troponin I < 0.01 11/29/20 12:32: POC Glucose 164 H 11/29/20 12:48: Troponin I < 0.01 11/29/20 17:10: POC Glucose 178 H 11/29/20 20:30: POC Glucose 189 H 11/30/20 05:08: POC Glucose 170 H 11/30/20 06:35: WBC 5.2 D, RBC 3.75 L, Hgb 10.5 L, Hct 34.1 L, MCV 91.0, MCH 28.0, MCHC 30.8 L, RDW 16.2, Plt Count 164, MPV 10.3, Neut % (Auto) 86.4 H, Lymph % (Auto) 11.3, [place] % (Auto) 2.0, Eos % (Auto) 0.0 L, Baso % (Auto) 0.1, Neut # (Auto) 4.5, Lymph # (Auto) 0.6 L, [place] # (Auto) 0.1, Eos # (Auto) 0.0, Baso # (Auto) 0.0, Total Counted 100, Neutrophils % (Manual) 83 H, Lymphocytes % (Manual) 1 L, Monocytes % (Manual) 16 H, Platelet Estimate Normal, RBC Morphology Not Reportable, Hypochromasia 2+, Anisocytosis 2+, Acanthocytes (Spur) 1+ 11/30/20 06:35: Sodium 141, Potassium 4.7, Chloride 107, Carbon Dioxide 25, Anion Gap 13.7, BUN 21 H D, Creatinine 1.10, Estimated Creat Clear 60, Estimated GFR 64, Est GFR ( Amer) 78, Glucose 155 H, Calcium 8.7, Magnesium 1.8 I & O for Last 24 hours: Intake & Output 11/27/20 11/28/20 11/29/20 11/30/20 11:59 11:59 11:59 11:59 Intake Total 1080 / 1080 Output Total 550 / 550 Balance 530 / 530 Weight 171 lb 4 oz 178 lb 2 oz - Constitutional no acute distress - *Routine Respiratory Exam Present: decreased breath sounds (Posteriorly with crackles in the left base.) - *Routine Cardiovascular Exam Present: RRR - *Routine Abdominal Exam Present: soft, normoactive bowel sounds. Absent: tenderness - *Routine Extremities Exam Present: edema (Trace bilateral legs) - *Routine Neurological Exam Present: alert, oriented X3 Assessment and Plan (1) Community acquired pneumonia Status: Acute Qualifiers: Laterality: unspecified laterality Qualified Code(s): J18.9 - Pneumonia, unspecified organism Category: Medical Code(s): J18.9 - Pneumonia, unspecified organism (2) Acute exacerbation of chronic obstructive airways disease Status: Acute Category: Medical Code(s): J44.1 - Chronic obstructive pulmonary disease with (acute) exacerbation (3) Congestive heart failure Status: Acute Qualifiers: Heart failure type: unspecified Heart failure chronicity: acute on chronic Qualified Code(s): I50.9 - Heart failure, unspecified Category: Medical Code(s): I50.9 - Heart failure, unspecified (4) A-fib Status: Chronic Qualifiers: Atrial fibrillation type: longstanding persistent Qualified Code(s): I48.11 - Longstanding persistent at
--- NOTE | 2020-11-30 10:38 | PC.NURSE ---
Addendum entered by Anshul Hraris RN 11/30/20 10:39: @ 1031 Original Note: Called and spoke with Aline at 1031 in re to gram positive coccyi notification.
[2020-11-30 11:52] LABS: POC Glucose,Bedside 159 (70-110)
--- NOTE | 2020-11-30 13:21 | PC.NURSE ---
Sputum induced, pt unable to have productive cough. Encouraged pt to continue to cough. Specimen cup left at bedside.
[2020-11-30 17:38] LABS: POC Glucose,Bedside 166 (70-110)
--- NOTE | 2020-11-30 18:27 | PC.NURSE ---
Pt alert and oriented and able to make needs known. Pt is [place] [employer]. VSS. CB in reach. Remains on 4 L NC. Audible wheezes noted and scattered bilaterally. S1,S2. No complaints currently. Meds given per sep.
--- NOTE | 2020-11-30 19:11 | PC.NURSE ---
RA SATS WERE 90% PT PLACED BACK TO 4L NC
[2020-11-30 21:21] LABS: POC Glucose,Bedside 179 (70-110)
[2020-12-01] VITALS (9 sets, daily range): BP systolic 123–145; BP diastolic 56–68; PULSE 59–69; RESP 18–20; TEMP 36.4–36.7; O2SAT 91–98; BMI 28.8
--- NOTE | 2020-12-01 04:10 | PC.NURSE ---
pt has rested well throughout shift, no change from previous assessment, pt remains alert and oriented, no c/o SOB, insp and exp wheezes heard throughout, o2 remains in place at 4l nc, no c/o chest pain, pt able to ambulate in room without difficulty. no distress noted at this time, call light within reach will continue to monitor at this time
[2020-12-01 06:05] LABS: POC Glucose,Bedside 166 (70-110)
--- NOTE | 2020-12-01 08:38 | HMH.ACPN2 ---
<Ana Garcia - Last Filed: 12/01/20 08:38> Internal Medicine - PN: Subj *Date: 12/01/20 *Time: 08:38 Interval history: Patient states he is feeling better. His breathing is better. He states he has very little cough. He is eating okay. He basically has stayed in the bed except to get up to void. Positive blood culture as per PCR. Await final results. Exam Vital signs and Labs for Last 24 Hours: Temp Pulse Resp BP Pulse Ox 97.8 F 69 20 131/57 L 97 12/01/20 07:54 12/01/20 07:54 12/01/20 07:54 12/01/20 07:54 12/01/20 07:54 Laboratory Results - last 24 hr 11/30/20 11:38: POC Glucose 159 H 11/30/20 16:36: POC Glucose 166 H 11/30/20 20:57: POC Glucose 179 H 12/01/20 05:56: POC Glucose 166 H I & O for Last 24 hours: Intake & Output 11/28/20 11/29/20 11/30/20 12/01/20 11:59 11:59 11:59 11:59 Intake Total 1080 / 1080 1020 / 1020 Output Total 550 / 550 Balance 530 / 530 1020 / 1020 Weight 171 lb 4 oz 178 lb 2 oz 179 lb Microbiology Reports for the Last 24 Hours: Microbiology 11/29/20 08:20 Blood Blood Culture - Preliminary - Constitutional no acute distress - *Routine Respiratory Exam Comments: Bibasilar crackles - *Routine Cardiovascular Exam Present: RRR - *Routine Extremities Exam Present: edema (Trace bilaterally) - *Routine Neurological Exam Present: alert, oriented X3 Assessment and Plan (1) Community acquired pneumonia Status: Acute Qualifiers: Laterality: unspecified laterality Qualified Code(s): J18.9 - Pneumonia, unspecified organism Category: Medical Code(s): J18.9 - Pneumonia, unspecified organism (2) Acute exacerbation of chronic obstructive airways disease Status: Acute Category: Medical Code(s): J44.1 - Chronic obstructive pulmonary disease with (acute) exacerbation (3) Congestive heart failure Status: Acute Qualifiers: Heart failure type: unspecified Heart failure chronicity: acute on chronic Qualified Code(s): I50.9 - Heart failure, unspecified Category: Medical Code(s): I50.9 - Heart failure, unspecified (4) A-fib Status: Chronic Qualifiers: Atrial fibrillation type: longstanding persistent Qualified Code(s): I48.11 - Longstanding persistent atrial fibrillation Category: Medical Code(s): I48.91 - Unspecified atrial fibrillation (5) CAD (coronary artery disease) Status: Chronic Qualifiers: Coronary Disease-Associated Artery/Lesion type: [place] artery [place] vs. 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 (7) History of peptic ulcer Status: Acute Category: Medical Code(s): Z87.11 - Personal history of peptic ulcer disease (8) Respiratory failure with hypoxia Status: Acute Category: Medical Code(s): J96.91 - Respiratory failure, unspecified with hypoxia (9) DM2 (diabetes mellitus, type 2) Status: Chronic Category: Medical Code(s): E11.9 - Type 2 diabetes mellitus without complications (10) HLD (hyperlipidemia) Status: Chronic Category: Medical Code(s): E78.5 - Hyperlipidemia, unspecified (11) HTN (hypertension) Status: Chronic Category: Medical Code(s): I10 - Essential (primary) hypertension (12) Non compliance with medical treatment Status: Chronic Category: Medical Code(s): Z91.19 - Patient's noncompliance with other medical treatment and regimen (13) Renal insufficiency Status: Chronic Category: Medical Code(s): N28.9 - Disorder of kidney and ureter, unspecified (14) [employer]
[2020-12-01 11:46] LABS: POC Glucose,Bedside 189 (70-110)
[2020-12-01 16:14] LABS: POC Glucose,Bedside 214 (70-110)
--- NOTE | 2020-12-01 19:12 | PC.NURSE ---
RA SATS WERE 90% RETURNED PT TO 3L NC
[2020-12-01 20:42] LABS: POC Glucose,Bedside 156 (70-110)
[2020-12-02] VITALS (10 sets, daily range): BP systolic 138–157; BP diastolic 58–81; PULSE 55–74; RESP 16–24; TEMP 36.4–36.9; O2SAT 92–97; BMI 28.9
--- NOTE | 2020-12-02 03:48 | PC.NURSE ---
A&OX4. PT UP INDEPENDENTLY T/O SHIFT. DOING WELL AMBULATING IN ROOM. TOLERATING 3LNC. O2 SAT IN UPPER 90S. PT HAS INTERMITTENT DRY, NO PRODUCTIVE COUGH. PT HAS HAD NO C/O PAIN OR SOA. PT RESTING T/O MAJORITY OF SHIFT. VSS WILL CONTINUE TO MONITOR.
--- NOTE | 2020-12-02 03:52 | PC.NURSE ---
O2 TITRATED TO 2LNC AT THIS TIME. WILL CONTINUE TO MONITOR.
[2020-12-02 06:01] LABS: POC Glucose,Bedside 149 (70-110)
--- NOTE | 2020-12-02 08:02 | HMH.ACPN2 ---
<Ana Garcia - Last Filed: 12/02/20 08:02> Internal Medicine - PN: Subj *Date: 12/02/20 *Time: 08:02 Interval history: Breathing continues to improve. He did have diarrhea throughout the night. He denies nausea and abdominal pain. He is eating breakfast without difficulty this a.m. He denies chest pain. He ambulates in the room. Blood cultures are showing Staphylococcus but final report not available.. Exam Vital signs and Labs for Last 24 Hours: Temp Pulse Resp BP Pulse Ox 97.8 F 68 24 153/61 H 92 L 12/02/20 04:00 12/02/20 06:09 12/02/20 04:00 12/02/20 04:00 12/02/20 06:09 Laboratory Results - last 24 hr 12/01/20 11:30: POC Glucose 189 H 12/01/20 16:04: POC Glucose 214 H 12/01/20 20:29: POC Glucose 156 H 12/02/20 05:05: POC Glucose 149 H I & O for Last 24 hours: Intake & Output 11/29/20 11/30/20 12/01/20 12/02/20 11:59 11:59 11:59 11:59 Intake Total 1080 / 1080 1020 / 1020 600 / 600 Output Total 550 / 550 Balance 530 / 530 1020 / 1020 600 / 600 Weight 171 lb 4 oz 178 lb 2 oz 179 lb 180 lb 1 oz Microbiology Reports for the Last 24 Hours: Microbiology 11/29/20 08:20 Blood Blood Culture - Preliminary Gram Positive Cocci 11/29/20 08:20 Blood Blood Culture - Preliminary NO GROWTH AFTER 48 HOURS - Constitutional no acute distress Comments: Sitting on the bedside eating his breakfast. Appears comfortable. Breathing is easy. - *Routine Respiratory Exam Present: crackles (Minimal crackles in bases. Moving air extremely well posteriorly) - *Routine Cardiovascular Exam Present: RRR - *Routine Abdominal Exam Present: soft, normoactive bowel sounds. Absent: tenderness - *Routine Extremities Exam Absent: edema, calf tenderness - *Routine Neurological Exam Present: alert, oriented X3 Assessment and Plan (1) Community acquired pneumonia Status: Acute Qualifiers: Laterality: unspecified laterality Qualified Code(s): J18.9 - Pneumonia, unspecified organism Category: Medical Code(s): J18.9 - Pneumonia, unspecified organism (2) Acute exacerbation of chronic obstructive airways disease Status: Acute Category: Medical Code(s): J44.1 - Chronic obstructive pulmonary disease with (acute) exacerbation (3) Congestive heart failure Status: Acute Qualifiers: Heart failure type: unspecified Heart failure chronicity: acute on chronic Qualified Code(s): I50.9 - Heart failure, unspecified Category: Medical Code(s): I50.9 - Heart failure, unspecified (4) A-fib Status: Chronic Qualifiers: Atrial fibrillation type: longstanding persistent Qualified Code(s): I48.11 - Longstanding persistent atrial fibrillation Category: Medical Code(s): I48.91 - Unspecified atrial fibrillation (5) CAD (coronary artery disease) Status: Chronic Qualifiers: Coronary Disease-Associated Artery/Lesion type: [place] artery [place] vs. transplanted heart: [place] heart Associated angina: with unspecified form of angina Qualified Code(s): I25.119 - Atherosclerotic heart disease of [place] coronary artery with unspecified angina pectoris Category: Medical Code(s): I25.10 - Atherosclerotic heart disease of [place] coronary artery without angina pectoris (6) assisted current use 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 therapy Status: Chronic Category: Medical Code(s): Z79.01 - assisted (current) use 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s (7) History of peptic ulcer Status: Acute Category: Medical Code(s): Z87.11 - Personal history of peptic ulcer disease (8) Respiratory failure with hypoxia Status: Acute Category: Medical Code(s): J96.91 - Respiratory failure, unspecified with hypoxia (9) DM2 (diabetes mellitus, type 2) Status: Chronic Category: Medical Code(s): E11.9 - Type 2 diabetes mellitus without complications (10) HLD (hyperlipidemia) Status: Chronic Category: Medical
[2020-12-02 11:45] LABS: POC Glucose,Bedside 158 (70-110)
--- NOTE | 2020-12-02 14:41 | DIET.NUTRFU ---
PO intakes 75%, BG moderate- avg. 160, weight stable, 2+ BLE edema. Continues on ADA/2g Na diet with soft modifications for ease of eating, no changes at this time.
[2020-12-02 17:58] LABS: POC Glucose,Bedside 142 (70-110)
--- NOTE | 2020-12-02 18:24 | PC.NURSE ---
Pt has rested well this shift. Pt has reported multiple loose bowel movemenets this shift. Pt did have x1 incontinent episode w/ loose, light brown stool. Pt continues to ambulate independently in his room w/ o2 on. VSS. NO other acute changes or complaints at this time.
--- NOTE | 2020-12-02 20:05 | PC.NURSE ---
RA SATS WERE 90% RETURNED PT N 2L NC
[2020-12-02 21:41] LABS: POC Glucose,Bedside 239 (70-110)
--- NOTE | 2020-12-02 22:41 | PC.NURSE ---
He is A&Ox4. He is [place]. Continues on 2 LPM n/x. Denies pain. Glucose at bedtime was 239. He reports having several BMs today (12/02/20).
[2020-12-03] VITALS: BP 131/51; PULSE 63; RESP 18; TEMP 36.6; O2SAT 97
[2020-12-03 04:00] VITALS: BP 123/53; PULSE 61; RESP 16; TEMP 36.6; O2SAT 97; BMI 28.8
[2020-12-03 05:12] LABS: POC Glucose,Bedside 205 (70-110)
[2020-12-03 06:37] VITALS: PULSE 68; O2SAT 97
[2020-12-03 06:56] LABS: Basophils % 0.1 % (0.1-2.0); Hematocrit 33.8 % (42.0-52.0); Hemoglobin 10.9 g/dL (14.1-18.0); Lymphocytes # 0.5 K/mm3 (0.7-4.5); Lymphocytes % 8.2 % (10-50); Mean Corpuscular HGB Conc 32.3 g/dL (31.8-35.4); Mean Corpuscular Hemoglobin 28.9 pg (27.0-31.2); Mean Corpuscular Volume 89.7 fl (80-94); Mean Platelet Volume 11.2 fl (7.4-10.4); Monocytes # 0.2 K/mm3 (0.1-1.0); Monocytes % 4.3 % (1.7-9.3); Neutrophils # 4.9 K/mm3 (1.8-7.8); Neutrophils % 87.4 % (37.0-80.0); Platelet Count 171 K/mm3 (142-424); Red Blood Count 3.77 M/mm3 (4.60-6.20); Red Cell Distribution Width 16.4 % (11.5-17.5); White Blood Count 5.7 K/mm3 (4.8-10.8)
[2020-12-03 07:06] LABS: Anion Gap 11.3 mEq/L (5-15); Blood Urea Nitrogen 30 mg/dl (9-20); Calcium 9.3 mg/dl (8.4-10.2); Carbon Dioxide 31 mmol/L (22.0-30.0); Chloride 105 mmol/L (98-107); Creatinine Clearance Estimated 67 mL/min (50-200); Estimated Glomerular Filt Rate 81 ml/min (>60); GFR (African American) 98 ML/MIN (>60); Glucose 153 mg/dl (74-100); Potassium 4.3 mmoL/L (3.5-5.1); Sodium 143 mmol/L (136-145)
[2020-12-03 07:16] LABS: MANUAL DIFFERENTIAL MANUAL DIFFERENTIAL (MANUAL DIFF)
[2020-12-03 08:00] VITALS: BP 136/62; PULSE 68; RESP 19; TEMP 36.6; O2SAT 92
--- NOTE | 2020-12-03 08:49 | HMH.ACPN2 ---
<Alison Graves - Last Filed: 12/03/20 08:49> Internal Medicine - PN: Subj *Date: 12/03/20 *Time: 08:49 Interval history: Patient states he is feeling a little bit better today. He still coughing and wheezing. He denies any chest pain. He has been up moving around his room. He states he slept better last night and ate most of his breakfast. Exam Vital signs and Labs for Last 24 Hours: Temp Pulse Resp BP Pulse Ox 98 F 68 16 123/53 L 97 12/03/20 04:00 12/03/20 06:37 12/03/20 04:00 12/03/20 04:00 12/03/20 06:37 Laboratory Results - last 24 hr 12/02/20 11:28: POC Glucose 158 H 12/02/20 16:58: POC Glucose 142 H 12/02/20 21:14: POC Glucose 239 H 12/03/20 03:44: POC Glucose 205 H 12/03/20 06:09: WBC 5.7, RBC 3.77 L, Hgb 10.9 L, Hct 33.8 L, MCV 89.7, MCH 28.9, MCHC 32.3, RDW 16.4, Plt Count 171, MPV 11.2 H, Neut % (Auto) 87.4 H, Lymph % (Auto) 8.2 L, [place] % (Auto) 4.3, Eos % (Auto) 0.0 L, Baso % (Auto) 0.1, Neut # (Auto) 4.9, Lymph # (Auto) 0.5 L, [place] # (Auto) 0.2, Eos # (Auto) 0.0, Baso # (Auto) 0.0 12/03/20 06:09: Sodium 143, Potassium 4.3, Chloride 105, Carbon Dioxide 31 H D, Anion Gap 11.3, BUN 30 H D, Creatinine 0.90, Estimated Creat Clear 67, Estimated GFR 81, Est GFR ( Amer) 98 D, Glucose 153 H, Calcium 9.3 I & O for Last 24 hours: Intake & Output 11/30/20 12/01/20 12/02/20 12/03/20 11:59 11:59 11:59 11:59 Intake Total 1080 / 1080 1020 / 1020 840 / 840 610 / 610 Output Total 550 / 550 Balance 530 / 530 1020 / 1020 840 / 840 610 / 610 Weight 178 lb 2 oz 179 lb 180 lb 1 oz 179 lb 4 oz Microbiology Reports for the Last 24 Hours: Microbiology 11/29/20 08:20 Blood Blood Culture - Preliminary Staphylococcus epidermidis - Constitutional no acute distress - *Routine Respiratory Exam Present: wheezes. Absent: rales - *Routine Cardiovascular Exam Present: RRR - *Routine Abdominal Exam Present: soft, normoactive bowel sounds. Absent: tenderness - *Routine Extremities Exam Absent: cyanosis, clubbing, edema - *Routine Skin Exam Present: warm. Absent: rash - *Routine Neurological Exam Present: alert, oriented X3 Assessment and Plan (1) Community acquired pneumonia Status: Acute Qualifiers: Laterality: unspecified laterality Qualified Code(s): J18.9 - Pneumonia, unspecified organism Category: Medical Code(s): J18.9 - Pneumonia, unspecified organism (2) Acute exacerbation of chronic obstructive airways disease Status: Acute Category: Medical Code(s): J44.1 - Chronic obstructive pulmonary disease with (acute) exacerbation (3) Congestive heart failure Status: Acute Qualifiers: Heart failure type: unspecified Heart failure chronicity: acute on chronic Qualified Code(s): I50.9 - Heart failure, unspecified Category: Medical Code(s): I50.9 - Heart failure, unspecified (4) A-fib Status: Chronic Qualifiers: Atrial fibrillation type: longstanding persistent Qualified Code(s): I48.11 - Longstanding persistent atrial fibrillation Category: Medical Code(s): I48.91 - Unspecified atrial fibrillation (5) CAD (coronary artery disease) Status: Chronic Qualifiers: Coronary Disease-Associated Artery/Lesion type: [place] artery [place] vs. transplanted heart: [place] heart Associated angina: with unspecified form of angina Qualified Code(s): I25.119 - Atherosclerotic heart disease of [place] coronary artery with unspecified angina pectoris Category: Medical Code(s): I25.10 - Atherosclerotic heart disease of [place] coronary artery without angina pectoris (6) long term current use 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 therapy Status: Chronic Category: Medical Code(s): Z79.01 - assisted (current) use 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s (7) History of peptic ulcer Status: Acute Category: Medical Code(s): Z87.11 - Personal history of peptic ulcer disease (8) Respiratory failure with hypoxia Status: Acut
[2020-12-03 09:38] LABS: Lymphocytes % 8 % (10-50); Monocytes % 7 % (2-9); Neutrophils % 85 % (42-76); Total Cells Counted 100
[2020-12-03 09:43] LABS: Hypochromasia 1+
[2020-12-03 09:45] LABS: Anisocytosis 1+
[2020-12-03 09:46] LABS: Acanthocytes 1+; Platelet Estimate Normal
--- NOTE | 2020-12-03 09:53 | PC.NURSE ---
patient insisted his daughter would pickers material handlers his medication this afternoon from clinic pharmacy. patient wishes to go once ride is here
--- NOTE | 2020-12-04 19:41 | HMH.DCSUM ---
General - General Admission date:: 11/29/20 Discharge date: 12/03/20 HPI HPI: 80 year old male with a history of CAD, CHF, COPD and diabetes, present to [facility] ER this morning complaining of shortness of breath. Patient states he felt fine when he went to bed last night but woke up at 4:30 am this morning short of breath. He had some associated chest tightness but no cough. He took a treatment of Duoneb via his nebulizer and got no relief so he then came to the ER. Patient states he is unsure of all of his medication but does not think he has been taking his diuretic. He's had no sick contacts and denies fever and chills. Hospital Course Hospital Course: The patient's chest x-ray showed patchy bilateral opacities representing multifocal pneumonia. His C-reactive protein and BNP were both elevated. He was admitted and started on IV antibiotics along with Lasix. His breathing did improve and he was able to get up and ambulate around his room. He was weaned from IV steroids to p.o. steroids. His cough improved. His blood cultures were growing Staphylococcus, therefore he was kept for final culture results. His final blood cultures were positive for Staph epidermidis. It was felt this was a contaminant and he was stable to be discharged with supplemental oxygen, antibiotics and daily furosemide. He will follow-up with Dr. Quan in the office in 1 week. Objective Vital signs: Temp Pulse Resp BP Pulse Ox 97.8 F 68 19 136/62 92 L 12/03/20 08:00 12/03/20 08:00 12/03/20 08:00 12/03/20 08:00 12/03/20 08:00 Narrative: - Constitutional no acute distress - *Routine HEENT Exam Head: Present: normocephalic Eye: Present: EOMI, PERRL ENT: Present: mucous membranes moist - *Routine Neck Exam Present: supple. Absent: lymphadenopathy - *Routine Respiratory Exam Present: wheezes, crackles (few) - *Routine Cardiovascular Exam Present: irregular rhythm - *Routine Abdominal Exam Present: soft, normoactive bowel sounds. Absent: tenderness - *Routine Extremities Exam Present: edema (1+ both legs). Absent: cyanosis, clubbing - *Routine Skin Exam Present: warm. 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 (7) History of peptic ulcer Status: Acute (8) Respiratory failure with hypoxia Status: Acute (9) DM2 (diabetes mellitus, type 2) Status: Chronic (10) HLD (hyperlipidemia) Status: Chronic (11) HTN (hypertension) Status: Chronic (12) Non compliance with medical treatment Status: Chronic (13) Renal insufficiency Status: Chronic (14) Elevated brain natriuretic peptide (BNP) level Status: Acute (15) Positive blood cultures Status: Acute Discharge Plan - Patient Discharge Instructions ACTIVITY: Continue current activity DIET: continue same diet Patient Instructions: DI for Pneumonia -- Adult, DI for Diabetes Type 2 - Follow up Plan Follow up with: Colby Quan MD [Primary Care Provider] - 12/10/20 11:15 am Disposition: Home, Self-Care Condition at discharge:: Stable Home Medications: Home Medications Medication Instructions Recorded Confirmed Type Atorvastatin Calcium [Lipitor 80mg 80 mg PO HS 09/10/17 11/29/20 History Tablet*] Tamsulosin HCl [Flomax 0.4mg 0.4 mg PO BID 09/10/17 11/29/20 History capsule] lisinopril 20 mg tablet 20 mg PO BID
== END 2020-12-03 10:00 | disposition home or self-care (01) | DRG 193 ==
LOC: ER 08:16 → 2ND 13:42
PROVIDERS: Admitting Provider Family Medicine; Emergency Provider Emergency Medicine; PCP Family Medicine; Visit Provider Family Medicine
DX: J18.9 Pneumonia, unspecified organism (principal); J96.01 Acute respiratory failure with hypoxia; J44.1 Chronic obstructive pulmonary disease with (acute) exacerbation; J44.0 Chronic obstructive pulmonary disease with (acute) lower respiratory infection; I48.11 Longstanding persistent atrial fibrillation; I48.20 Chronic atrial fibrillation, unspecified; I13.0 Hypertensive heart and chronic kidney disease with heart failure and stage 1 through stage 4 chronic kidney disease, or unspecified chronic kidney disease; Z20.822 Contact with and (suspected) exposure to COVID-19; Z79.84 Long term (current) use of oral hypoglycemic drugs; I50.9 Heart failure, unspecified; I25.118 Atherosclerotic heart disease of native coronary artery with other forms of angina pectoris; Z79.01 Long term (current) use 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s; Z91.19 Patient's noncompliance with other medical treatment and regimen; Z87.891 Personal history of nicotine dependence; Z95.5 Presence of coronary angioplasty implant and graft; Z95.1 Presence of aortocoronary bypass graft; M19.90 Unspecified osteoarthritis, unspecified site; Z99.81 Dependence on supplemental oxygen; E78.5 Hyperlipidemia, unspecified; E11.51 Type 2 diabetes mellitus with diabetic peripheral angiopathy without gangrene; I25.2 Old myocardial infarction; Z86.73 Personal history of transient ischemic attack (TIA), and cerebral infarction without residual deficits; N18.9 Chronic kidney disease, unspecified; E11.22 Type 2 diabetes mellitus with diabetic chronic kidney disease
CPT/HCPCS: 71046; 80048; 80053; 82803; 82962; 83605; 83735; 83880; 84145; 84484; 85007; 85025; 85651; 86140; 87040; 87077; 87186; 87581; 87633; 87798; 93005; 94640; 94761; 96365; 96367; 96375; 99284; J0456

== ENCOUNTER → 2020-12-18 12:44 | Outpatient (CLI) | payer MEDICARE, OTHER, SELFPAY ==
--- NOTE | 2020-12-18 12:44 | CA_ITS ---
APPROVED REPORT EXAM: Comprehensive 2D, Doppler, and color-flow Echocardiogram Phone Counselor: Tara Ortiz CRT Ht: 5 ft 6 in Wt: 167lbs BSA: 1.85 BP: 114/70 mmHg Indications: Shortness of Breath, CVA/TIA, Atrial Fibrillation, Peripheral Edema, CAD, Hyperlipidemia, Hypertension/HDD 2D Dimensions LVOT 2.03 cm (M/F) 1.5-2.5 LA Volume 68.30 mL LA Volume Index 36.90 mL/m2 (M/F) 16-34 M-Mode Dimensions RVDd 3.25 cm (0.9-2.6) LA Diam 4.80 cm (1.9-4.0) LVDd 4.70 cm (3.5-5.7) Ao Diam 3.19 cm (2.0-3.7) LVDs 2.82 cm (3.5-5.7) IVSd 1.27 cm (0.6-1.1) PWd 0.91 cm (0.6-1.1) EF (Teich) 70.60% FS 40.00% EDV (Teich) 102.40 mL ESV (Teich) 30.10 mL LV Diastology E Decel Time 193.00 (160-240 msec) E/A Ratio 7.10 Aortic Valve AO Peak GR. 6.30 mmHg Mitral Valve MV A Velocity 19.00 (40-130 cm/s) E/A Ratio 7.10 MV Decel. Time 193.00 (160-240 ms) Pulmonary Valve PV Peak Velocity 55.00 (50-150 cm/s) Tricuspid Valve TR P. Velocity 812.00 cm/s RAP Estimate 0.00 mmHg RVSP 263.70 mmHg Left Ventricle Left atrium is moderately enlarged, left ventricle is normal size, mild concentric left ventricular hypertrophy, visually estimated ejection fraction 50% with no regional wall motion abnormality, diastolic parameters are inconclusive. Right Ventricle Right atrium and right ventricle moderately enlarged with normal contractility. Aortic Valve Aortic valve is thickened and calcified without Doppler evidence of aortic stenosis or aortic insufficiency. Mitral Valve Mitral valve leaflets are minimally thickened, there is mild mitral regurgitation. Tricuspid Valve Tricuspid valve grossly normal, there is mild tricuspid regurgitation, tricuspid regurgitation jet velocity is inadequate for calculation of the right ventricular systolic pressure. Pulmonic Valve Pulmonic valve is poorly visualized. Great Vessels Aortic root is normal size. Pericardium No significant pericardial effusion noted. Conclusion 1. Moderate biatrial enlargement, normal left ventricular size, mild concentric left ventricular hypertrophy, visually estimated ejection fraction 50% with no regional wall motion abnormality, diastolic parameters are inconclusive. 2. Moderately enlarged right ventricle with normal contractility. 3. Mild mitral and tricuspid regurgitation. 4. No significant pericardial effusion noted. Electronically signed by : Carlos Fraga, 12/22/2020 05:58:35
== END ==
PROVIDERS: PCP Family Medicine; Visit Provider Internal Medicine Cardiovascular Disease
DX: I48.11 Longstanding persistent atrial fibrillation (principal); R06.00 Dyspnea, unspecified
CPT/HCPCS: 93306

== ENCOUNTER → 2021-01-21 12:18 | Outpatient (CLI) | payer MEDICARE, OTHER, SELFPAY | PROVIDERS: PCP Family Medicine; Visit Provider Internal Medicine Cardiovascular Disease | DX: R42 Dizziness and giddiness (principal) | CPT/HCPCS: 93225; 93226 ==

== ENCOUNTER → 2021-02-17 16:38 | Outpatient (CLI) | payer MEDICARE, OTHER, SELFPAY ==
[2021-02-17 16:42] LABS: Coronavirus 19, PCR Not Detected (NotDetected); Influenza A, PCR Not Detected (NotDetected); Influenza B, PCR Not Detected (NotDetected)
[2021-02-17 17:05] LABS: Basophils # 0.1 K/mm3 (0-0.2); Basophils % 0.8 % (0.1-2.0); Eosinophils # 0.2 K/mm3 (0.0-0.4); Eosinophils % 2.2 % (0.1-12.0); Hematocrit 38.8 % (42.0-52.0); Hemoglobin 12.9 g/dL (14.1-18.0); Lymphocytes # 2.5 K/mm3 (0.7-4.5); Lymphocytes % 32.3 % (10-50); Mean Corpuscular HGB Conc 33.2 g/dL (31.8-35.4); Mean Corpuscular Hemoglobin 29.6 pg (27.0-31.2); Mean Corpuscular Volume 89.2 fl (80-94); Mean Platelet Volume 10.1 fl (7.4-10.4); Monocytes # 0.6 K/mm3 (0.1-1.0); Monocytes % 7.5 % (1.7-9.3); Neutrophils # 4.5 K/mm3 (1.8-7.8); Neutrophils % 57.3 % (37.0-80.0); Platelet Count 165 K/mm3 (142-424); Red Blood Count 4.35 M/mm3 (4.60-6.20); Red Cell Distribution Width 16.5 % (11.5-17.5); White Blood Count 7.9 K/mm3 (4.8-10.8)
[2021-02-17 17:17] LABS: Alanine Aminotransferase 15 U/L (12-78); Albumin Level 4.2 g/dl (3.5-5.0); Albumin/Globulin Ratio 1.8 (1.1-1.8); Alkaline Phosphatase 75 U/L (38-126); Anion Gap 14.6 mEq/L (5-15); Aspartate Amino Transferase 19 U/L (17-59); Bilirubin,Total 1.5 mg/dl (0.2-1.3); Blood Urea Nitrogen 20 mg/dl (9-20); Calcium 9.1 mg/dl (8.4-10.2); Carbon Dioxide 30 mmol/L (22.0-30.0); Chloride 103 mmol/L (98-107); Estimated Glomerular Filt Rate 72 ml/min (>60); GFR (African American) 87 ML/MIN (>60); Globulin 2.3 g/dL (1.3-3.2); Glucose 142 mg/dl (74-100); Potassium 4.6 mmoL/L (3.5-5.1); Sodium 143 mmol/L (136-145); Total Protein,Serum 6.5 g/dl (6.3-8.2)
== END ==
PROVIDERS: Visit Provider Internal Medicine
DX: Z01.812 Encounter for preprocedural laboratory examination (principal); Z20.822 Contact with and (suspected) exposure to COVID-19; R42 Dizziness and giddiness
CPT/HCPCS: 36415; 80053; 85025; U0003

== ENCOUNTER 2021-02-18 07:56 | Day surgery (SDC) | payer MEDICARE, OTHER, SELFPAY ==
[2021-02-18] VITALS (9 sets, daily range): BP systolic 92–165; BP diastolic 46–86; PULSE 50–64; RESP 13–20; TEMP 36.6; O2SAT 92–99; BMI 25.8
--- NOTE | 2021-02-18 | IR_ITS ---
APPROVED REPORT Patient Location: Outpatient Coal Cutting Machine Operator: MAIRA Vasquez RT (R) PROCEDURES 1. Pocket formation for Permanent Pacemaker Placement. 2. Placement of a ventricular sensing and pacing coil in the right ventricular apex. 3. Permanent Pacemaker Placement. INDICATION Sick Sinus Syndrome, Miguel Tachy Syndrome Informed consent was obtained prior to the procedure. COMPLICATIONS None Estimated Blood Loss: Less than 10 mls TECHNIQUE 1% Lidocaine with epinephrine used to anesthetized the left anterior aspect of the chest. Scalpel was used to make the initial cutaneous incision while electrocautery was used to dissect down tinto the fascia. The fascia was lifted off the pectoralis muscle and digitally manipulated creating a pocket for the pacemaker. The patient was then placed in Trendelenburg position and the subclavian vein was accessed once via the Selinger technique, one wire in the vein. A 6 Macanese sheath was placed under fluoroscopic guidance into the subclavian vein over one of the wire. The dilator was removed from the sheath. Using fluoroscopic guidance, the ventricular lead was placed into the right ventricular apex, screwed and secured into place. Electronic interrogation proved acceptable thresholds and voltage within the lead. Using 3-0 silk, the ventricular lead was then secured into place. Lead was secured to the facia using the 3-0 silk. Following this, the sheath was pealed away. Lead attached to generator. 1 gram of Ancef was used to flush the pocket. Following the pacemaker generator being secured to the fascia and in place, Monocryl was used to close the subcutaneous layers while nick were used to close the cutaneous layer. A pressure dressing was placed and the patient was transferred to the postop holding area in stable condition for postoperative care. INTERROGATION Generator Model number: ACCOLADE MRI SR, L310 Generator Serial number: [id number] Right Ventricular lead model number: INGEVITY+ 59cm, 7842 Right Ventricular lead serial number: [id number] R-wave: 12.0 mV Impedence: 724 ohms Threshold: 0.5V@0.4ms Pacing Parameters: Mode: VVI LRL: 50 ppm No diaphragmatic stimulation at 10 volts. IMPRESSION 1. Successful pocket formation for Permanent Pacemaker Placement. 2. Successful placement of a ventricular sensing and pacing coil in the right ventricular apex. 3. Successful permanent Pacemaker Placement. PLAN 1. Post op wound care, follow up office visit Electronically signed by : Emery Odom, 02/19/2021 09:55:43
--- NOTE | 2021-02-18 12:59 | XR_ITS ---
PROCEDURE: XR CHEST PORTABLE CLINICAL HISTORY: post pacemaker placement COMPARISON: No exams were available for comparison FINDINGS: Bibasal atelectasis noted. Atelectasis in the right mid zone. Background of chronic interstitial changes. No lobar consolidation, pleural effusions or pneumothorax. The cardiac size and central pulmonary vasculature is within normal limits. Degenerative changes of the visualized thoracic spine. Single chamber pacemaker is noted. Surgical nick projecting over the left lung apex. Vascular calcification is noted. IMPRESSION: No evidence of pneumothorax. Bibasal atelectasis. Dictated by: Madelaine Seth 02/18/2021 13:38 Madelaine Seth in OV 02/18/2021 13:38
== END 2021-02-18 14:48 | disposition home or self-care (01) ==
PROVIDERS: PCP Family Medicine; Visit Provider Internal Medicine
DX: I25.118 Atherosclerotic heart disease of native coronary artery with other forms of angina pectoris (principal); I49.5 Sick sinus syndrome; R94.39 Abnormal result of other cardiovascular function study; I48.11 Longstanding persistent atrial fibrillation; I70.1 Atherosclerosis of renal artery; Z79.01 Long term (current) use 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s; Z79.02 Long term (current) use of antithrombotics/antiplatelets; E11.9 Type 2 diabetes mellitus without complications; Z79.84 Long term (current) use of oral hypoglycemic drugs; I25.2 Old myocardial infarction; I11.0 Hypertensive heart disease with heart failure; I50.9 Heart failure, unspecified; Z79.899 Other long term (current) drug therapy
CPT/HCPCS: 33207; 71045; C1786; C1898

== ENCOUNTER 2021-02-21 15:56 | Emergency (ER) | payer MEDICARE, OTHER, SELFPAY ==
[2021-02-21] VITALS (7 sets, daily range): BP systolic 103–167; BP diastolic 52–78; PULSE 56–65; RESP 13–22; TEMP 36.4; O2SAT 94–98; BMI 29.0
--- NOTE | 2021-02-21 16:28 | XR_ITS ---
PROCEDURE INFORMATION: Exam: XR Chest Exam date and time: 02/21/2021 4:28 PM Age: 80 years old Clinical indication: Cough; Prior surgery; Surgery date: <1 month TECHNIQUE: Imaging protocol: XR of the chest. Views: 1 view. COMPARISON: CR XR CHEST PORTABLE 02/18/2021 1:03 PM FINDINGS: Tubes, catheters and devices: A pacemaker device is present, and its leads are in appropriate position. Lungs: Atelectatic changes noted within both lung bases without focal pneumonia. Pleural spaces: There is no evidence of pneumothorax. Heart/Mediastinum: The heart demonstrates mild diffuse enlargement. Vasculature: The vasculature demonstrates diffuse mild atherosclerotic calcification. Bones/joints: Unremarkable. Soft tissues: Skin nick are present over the left hemithorax. IMPRESSION: 1. The heart demonstrates mild diffuse enlargement. 2. Atelectatic changes noted within both lung bases without focal pneumonia.
--- NOTE | 2021-02-21 16:58 | HMH.EDGENADL ---
ED Disposition Clinical Impression: Encounter for wound re-check Disposition: Home, Self-Care Condition on Discharge: Good Referrals: Colby Quan MD [Primary Care Provider] - Emery Odom MD [Staff Physician] - - Critical Care Critical Care Time: No Attestation: On 02/21/21, the high probability of a clinically significant, sudden or life threatening deterioration of the following system(s) required my full and direct attention, intervention and personal management. The time I documented below is in addition to time spent performing reported procedures but includes the following listed in this critical care notation. Medical Decision Making - Medical Records Medical records reviewed: Yes: I reviewed the patient's medical records. - Han Inquiry Pt receiving controlled substance: No Vital Signs: 02/21/21 15:58 02/21/21 16:30 02/21/21 17:00 Temperature 97.5 F L Temperature Source Oral Pulse Rate 56 L Pulse Rate [Right] 63 Respiratory Rate 20 22 21 Blood Pressure 131/57 L 118/65 Blood Pressure [Right Arm] 126/52 L Blood Pressure Mean [Right Arm] 76 02 Sat by Pulse Oximetry 98 94 L Oxygen Delivery Method Room Air - Lab Data Lab Results 02/21/21 16:54: WBC 6.6, RBC 3.95 L, Hgb 11.9 L, Hct 35.4 L, MCV 89.5, MCH 30.1, MCHC 33.7, RDW 16.7, Plt Count 121 L, MPV 9.7, Neut % (Auto) 59.1, Lymph % (Auto) 30.8, [place] % (Auto) 7.5, Eos % (Auto) 2.2, Baso % (Auto) 0.4, Neut # (Auto) 3.9, Lymph # (Auto) 2.0, [place] # (Auto) 0.5, Eos # (Auto) 0.2, Baso # (Auto) 0.0 02/21/21 16:54: Sodium 140, Potassium 4.2, Chloride 106, Carbon Dioxide 24, Anion Gap 14.2, BUN 23 H, Creatinine 1.10, Estimated Creat Clear 61, Estimated GFR 64, Est GFR ( Amer) 78, Glucose 128 H, Calcium 8.6 Result diagrams: 02/21/21 16:54 02/21/21 16:54 - Radiology Data #1 Image(s): Chest Image Reviewed: Yes I reviewed the patient's radiology results, Yes I have reviewed radiologist's interpretation IMPRESSION: 1. The heart demonstrates mild diffuse enlargement. 2. Atelectatic changes noted within both lung bases without focal pneumonia. - Reevaluation(s) Time: 17:58 Reevaluation #1: On reevaluation, the patient is feeling much better. Hemoglobin is stable. Chest x-ray is unremarkable. Patient's surgical site appears clear dry and intact. Graham in place. We did remove and apply new sterile dressing. Patient will follow up with cardiology as previously ordered. Given strict return precautions. Verbalized understanding. Medical Decision Narrative: This is a 80-year-old male presented to the emergency department for wound evaluation. Patient noted some discharge on the dressing and this morning. The patient has no active bleeding at this time. No signs of infection. Work-up initiated. General Adult HPI - General Chief complaint: Recheck/Abnormal Lab/Rx Stated complaint: pacemaker sight seems to be bleeding Time Seen by Provider: 02/21/21 16:00 Mode of Arrival: Ambulatory Limitations: No Limitations Description of Symptoms (Recalled from ER Triage Doc. by RN): c/o bleeding coming from pacemaker insertion site that started this morning. s/p pacemaker placement on 02/18. endorses feeling dizzy this morning, denies CP/SOB. On plavix & eliquis, bleeding controlled at this time. - History of Present Illness HPI narrative: This 80-year-old male presented to the emergency department for wound evaluation. The patient had a pacemaker placed last week without any significant complication. This morning started noticing some pinkish discharge on his bandage. He is concerned that it was bleeding. Denies any gross blood from anywhere. He was not having any pain in the area. Has had some mild lightheadedness, however no headache, change in vision or focal weakness. Denies any fevers or chills. Is not have any cough or difficulty breathing. No chest pain or palpitations. Denies any abdominal pain or
[2021-02-21 17:01] LABS: Basophils % 0.4 % (0.1-2.0); Eosinophils # 0.2 K/mm3 (0.0-0.4); Eosinophils % 2.2 % (0.1-12.0); Hematocrit 35.4 % (42.0-52.0); Hemoglobin 11.9 g/dL (14.1-18.0); Lymphocytes % 30.8 % (10-50); Mean Corpuscular HGB Conc 33.7 g/dL (31.8-35.4); Mean Corpuscular Hemoglobin 30.1 pg (27.0-31.2); Mean Corpuscular Volume 89.5 fl (80-94); Mean Platelet Volume 9.7 fl (7.4-10.4); Monocytes # 0.5 K/mm3 (0.1-1.0); Monocytes % 7.5 % (1.7-9.3); Neutrophils # 3.9 K/mm3 (1.8-7.8); Neutrophils % 59.1 % (37.0-80.0); Platelet Count 121 K/mm3 (142-424); Red Blood Count 3.95 M/mm3 (4.60-6.20); Red Cell Distribution Width 16.7 % (11.5-17.5); White Blood Count 6.6 K/mm3 (4.8-10.8)
[2021-02-21 17:07] LABS: Anion Gap 14.2 mEq/L (5-15); Blood Urea Nitrogen 23 mg/dl (9-20); Calcium 8.6 mg/dl (8.4-10.2); Carbon Dioxide 24 mmol/L (22.0-30.0); Chloride 106 mmol/L (98-107); Creatinine Clearance Estimated 61 mL/min (50-200); Estimated Glomerular Filt Rate 64 ml/min (>60); GFR (African American) 78 ML/MIN (>60); Glucose 128 mg/dl (74-100); Potassium 4.2 mmoL/L (3.5-5.1); Sodium 140 mmol/L (136-145)
--- NOTE | 2021-02-21 17:59 | PC.NURSE ---
Dressing changed per MD
== END 2021-02-21 19:00 | disposition home or self-care (01) ==
PROVIDERS: Emergency Provider Emergency Medicine; PCP Family Medicine
DX: R42 Dizziness and giddiness (principal); Z95.0 Presence of cardiac pacemaker; I48.0 Paroxysmal atrial fibrillation; I25.10 Atherosclerotic heart disease of native coronary artery without angina pectoris; I50.9 Heart failure, unspecified; I10 Essential (primary) hypertension; E03.9 Hypothyroidism, unspecified; E78.5 Hyperlipidemia, unspecified; K21.9 Gastro-esophageal reflux disease without esophagitis; Z88.0 Allergy status to penicillin; Z79.899 Other long term (current) drug therapy
CPT/HCPCS: 71045; 80048; 85025; 99282

== ENCOUNTER → 2021-03-25 11:23 | Outpatient (CLI) | payer MEDICARE, OTHER, SELFPAY ==
--- NOTE | 2021-03-25 | ECG_ITS ---
APPROVED REPORT Exam: Resting ECG HR:62 bpm ECG Measurements Heart Rate 62 AXES QRSd 90 QRS 69 QT 430 T 251 QTc 436 Conclusion Atrial fibrillation with premature ventricular or aberrantly conducted complexes Poor R wave progression Nonspecific ST/T wave changes, unchanged from prior Abnormal ECG Electronically signed by : Rikki Stewart MD 03/25/2021 17:32:58
[2021-03-25 11:42] LABS: Microscopic, Urine URINE MICROSCOPIC (MICROSCOPIC)
[2021-03-25 12:45] LABS: Basophils # 0.1 K/mm3 (0-0.2); Basophils % 0.5 % (0.1-2.0); Eosinophils # 0.2 K/mm3 (0.0-0.4); Eosinophils % 1.4 % (0.1-12.0); Hematocrit 36.9 % (42.0-52.0); Hemoglobin 11.7 g/dL (14.1-18.0); Lymphocytes % 17.2 % (10-50); Mean Corpuscular HGB Conc 31.7 g/dL (31.8-35.4); Mean Corpuscular Hemoglobin 29.8 pg (27.0-31.2); Mean Platelet Volume 10.8 fl (7.4-10.4); Monocytes # 0.9 K/mm3 (0.1-1.0); Monocytes % 7.3 % (1.7-9.3); Neutrophils # 8.7 K/mm3 (1.8-7.8); Neutrophils % 73.5 % (37.0-80.0); Platelet Count 258 K/mm3 (142-424); Red Blood Count 3.92 M/mm3 (4.60-6.20); Red Cell Distribution Width 16.1 % (11.5-17.5); White Blood Count 11.9 K/mm3 (4.8-10.8)
[2021-03-25 13:49] LABS: Chloride 105 mmol/L (98-107); Potassium 3.7 mmoL/L (3.5-5.1); Sodium 143 mmol/L (136-145)
[2021-03-25 13:51] LABS: Alanine Aminotransferase 13 U/L (12-78); Alkaline Phosphatase 68 U/L (38-126); Amylase 59 U/L (30-110); Anion Gap 17.7 mEq/L (5-15); Aspartate Amino Transferase 19 U/L (17-59); Bilirubin,Total 1.2 mg/dl (0.2-1.3); Blood Urea Nitrogen 30 mg/dl (9-20); Carbon Dioxide 24 mmol/L (22.0-30.0); Estimated Glomerular Filt Rate 45 ml/min (>60); GFR (African American) 54 ML/MIN (>60); Phosphorous 3.3 mg/dl (2.5-4.5)
[2021-03-25 13:52] LABS: Albumin Level 3.8 g/dl (3.5-5.0); Albumin/Globulin Ratio 1.5 (1.1-1.8); Calcium 9.5 mg/dl (8.4-10.2); Globulin 2.6 g/dL (1.3-3.2); Glucose 127 mg/dl (74-100); Lipase 133 U/L (23-300); Magnesium 1.5 mg/dl (1.6-2.3); Total Protein,Serum 6.4 g/dl (6.3-8.2)
[2021-03-25 14:04] LABS: Troponin I 0.03 ng/ml (0.00-0.034)
[2021-03-25 14:09] LABS: 25-OH Vitamin D, Total 30.3 ng/mL (30-100)
[2021-03-25 15:22] LABS: Vitamin B12 240 pg/mL (239-931)
[2021-03-25 15:41] LABS: Appearance,Urine CLOUDY (Clear); Blood, Urine TRACE-I (Negative); Color,Urine YELLOW (Yellow); Glucose,Urine (UA) Negative (Negative); Ketones,Urine TRACE (Negative); Leukocyte Esterase,Urine 2+ (Negative); Nitrate,Urine Negative (Negative); Protein,Urine 2+ (Negative); Urobilinogen,Urine 0.2 EU/dl (0.2)
[2021-03-25 15:45] LABS: Bilirubin,Urine 1+ (Negative)
[2021-03-25 15:48] LABS: Bacteria,Urine 2+ /lpf; Squamous Epithelial Cell,Urine Occasional #/hpf (0-5)
== END ==
PROVIDERS: PCP Family Medicine; Visit Provider Family Medicine
DX: R07.9 Chest pain, unspecified (principal); R42 Dizziness and giddiness; R10.84 Generalized abdominal pain; R53.83 Other fatigue; E11.9 Type 2 diabetes mellitus without complications; Z79.84 Long term (current) use of oral hypoglycemic drugs; E55.9 Vitamin D deficiency, unspecified
CPT/HCPCS: 36415; 80053; 81001; 82150; 82306; 82607; 83036; 83690; 83735; 84100; 84443; 84484; 85025; 87086; 93005

== ENCOUNTER → 2021-04-27 13:03 | Outpatient (CLI) | payer MEDICARE, OTHER, SELFPAY | PROVIDERS: PCP Family Medicine; Visit Provider Nurse Practitioner | DX: Z20.822 Contact with and (suspected) exposure to COVID-19 (principal) | CPT/HCPCS: C9803; U0003; U0005 ==

== ENCOUNTER → 2021-07-01 08:43 | Outpatient (POV) | payer MEDICARE, OTHER, SELFPAY | PROVIDERS: Visit Provider Audiologist | DX: Z00.00 Encounter for general adult medical examination without abnormal findings (principal) ==

== ENCOUNTER 2021-07-03 13:55 | Emergency (ER) | payer MEDICARE, OTHER, SELFPAY ==
--- NOTE | 2021-07-03 14:10 | XR_ITS ---
PROCEDURE INFORMATION: Exam: XR Chest Exam date and time: 07/03/2021 2:10 PM Age: 80 years old Clinical indication: Patient HX: Cough, wt loss; Additional info: Cough, congestion TECHNIQUE: Imaging protocol: XR of the chest. Views: 2 views. COMPARISON: CR XR CHEST PORTABLE 02/21/2021 4:57 PM FINDINGS: Tubes, catheters and devices: A pacemaker device is present, and its leads are in appropriate position. Lungs: Atelectasis and/or early infiltrative changes noted within both lung bases. Bilateral hyperinflation is present. Pleural spaces: Unremarkable. No pleural effusion. No pneumothorax. Heart/Mediastinum: Unremarkable. No cardiomegaly. Bones/joints: The thoracic spine demonstrates mild degenerative changes at multiple levels. IMPRESSION: 1. Atelectasis and/or early infiltrative changes noted within both lung bases. 2. Bilateral hyperinflation is present.
[2021-07-03 15:10] VITALS: BP 127/51; PULSE 80; RESP 16; TEMP 36.4; O2SAT 99; BMI 27.4
--- NOTE | 2021-07-03 15:54 | HMH.EDUTC ---
[facility] [place] Impression: COPD exacerbation Disposition: Home, Self-Care Condition on Discharge: Good Instructions: Chronic Obstructive Pulmonary Disease Additional Instructions: Drink plenty of fluids. Take tylenol or ibuprofen for pain or fever. Take the medications as directed. Follow up with your regular doctor. Make sure you follow up with Dr. Quan early this week so they can recheck you to make sure you are getting better instead of worse. GO TO THE ER FOR ANY WORSENING SYMPTOMS Prescriptions: guaiFENesin [Mucinex 600mg tablet] 1 - 2 tab PO BIDP PRN #30 tab PRN Reason: Congestion Transmission Status: Received by Med ePad # Cefdinir [Omnicef 300mg Capsule] 300 mg PO BID #20 cap Transmission Status: Received by [facility] # predniSONE [Prednisone 20mg Tab] 20 mg PO BID 4 Days #8 tab Transmission Status: Received by [facility] # Referrals: Colby Quan MD [Primary Care Provider] - Time of Disposition: 16:15 Medical Decision Making - Medical Records Medical records reviewed: No: I reviewed the patient's medical records. - Han Inquiry Pt receiving controlled substance: No Vital Signs: 07/03/21 15:10 07/03/21 16:13 Temperature 97.6 F 97.6 F Temperature Source Oral Pulse Rate 80 Pulse Rate [Left] 80 Respiratory Rate 16 16 Blood Pressure 125/57 L Blood Pressure [Right Arm] 127/51 L Blood Pressure Mean [Right Arm] 76 02 Sat by Pulse Oximetry 99 [facility] [place] - General Stated complaint: cough, weakness, diarrhea, dizzy Time Seen by Provider: 07/03/21 15:55 Mode of Arrival: Ambulatory Source of Information: Patient Limitations: No Limitations Description of Symptoms (Recalled from Triage Doc. by RN): pt c/o cough, nasal drainage, weakness, and diarrhea. HEENT Symptoms (Recalled from RN notes): Yes (nasal drainage) Resp Symptoms (Recalled from RN notes): Yes (cough) Skin Symptoms (Recalled from RN notes): No MS Symptoms (Recalled from RN notes): No Functional Status (Recalled from RN notes): wnl - History of Present Illness Provider Complaint: He states that for the past 4 days approx, he has been starting to feel bad and more tired than normal. He is having a worsening cough and chest congestion. He denies any fever/chills or increased shortness of breath. He has a history of copd and he gets pneumonia very easily. He states that about this time last year he spent 1 week here in the hospital on the ventalator. So, he came in today to try to prevent himself from getting that sick again. He has been fully vaccinated against covid-19 and he denies being exposed to covid-19 recently as far as he knows, but he has been out in a grocery store and other places. - Related Data Home Medications Medication Instructions Recorded Confirmed Atorvastatin Calcium [Lipitor 80mg 80 mg PO HS 09/10/17 05/27/21 Tablet*] Tamsulosin HCl [Flomax 0.4mg 0.4 mg PO BID 09/10/17 05/27/21 capsule] lisinopril 20 mg tablet 20 mg PO BID 12/19/17 05/27/21 apixaban 5 mg tablet 5 mg PO BID 01/29/18 05/27/21 albuterol sulfate 90 mcg/actuation 2 puff IH QIDP PRN 03/26/18 05/27/21 aerosol inhaler gabapentin 300 mg capsule 300 mg PO BID cap 01/20/20 05/27/21 Ferrous Sulfate [Ferrous Sulfate 325 mg PO BID 05/15/20 05/27/21 325mg Tablet] Fluticasone/Umeclidin/Vilanter 1 puff IH DAILY 05/15/20 05/27/21 [Treleperez Ellipta 100-62.5-25] Clopidogrel Bisulfate [Plavix] 75 mg PO DAILY 10/08/20 05/27/21 Famotidine 40 mg PO HS 11/29/20 05/27/21 Metformin HCl [Metformin HCl ER] 500 mg PO BID 11/29/20 05/27/21 carvedilol 25 mg tablet 25 mg PO tab 04/21/21 05/27/21 Previous Rx's Medication Instructions Recorded Furosemide [Furosemide 20mg Tab*] 20 mg PO DAILY #30 tab 12/03/20 amlodipine 5 mg tablet See Rx Instructions .ROUTE 05/05/21 .COMPLEX #30 tab Cefdinir [Omnicef 300mg Capsule] 300 mg PO BID #20 cap 07/03/21
[2021-07-03 16:13] VITALS: BP 125/57; PULSE 80; RESP 16; TEMP 36.4
== END 2021-07-03 16:23 | disposition home or self-care (01) ==
PROVIDERS: Emergency Provider Nurse Practitioner Family; PCP Family Medicine
DX: J44.1 Chronic obstructive pulmonary disease with (acute) exacerbation (principal); Z88.0 Allergy status to penicillin
CPT/HCPCS: G0463; 71046; 99202

== ENCOUNTER → 2021-07-09 16:16 | Outpatient (CLI) | payer MEDICARE, OTHER, SELFPAY ==
--- NOTE | 2021-07-09 17:34 | XR_ITS ---
PROCEDURE INFORMATION: Exam: XR Chest Exam date and time: 07/09/2021 5:34 PM Age: 80 years old Clinical indication: Cough; Additional info: Covid TECHNIQUE: Imaging protocol: XR of the chest. AP upright portable exam 5:40 p.m. Views: 1 view. COMPARISON: CR XR CHEST 2V 07/03/2021 2:33 PM FINDINGS: Tubes, catheters and devices: Left subclavian cardiac pacer device. Lungs: Improved aeration of the central and lower lungs compared with 07/03/2021, with mild residual airspace disease which could be pneumonia or edema, greatest at the right perihilar region. Mild pulmonary hyperinflation and interstitial prominence, correlate for history of underlying COPD. This was better seen on the prior study. Pleural spaces: Unremarkable. No pleural effusion. No pneumothorax. Heart/Mediastinum: The cardiac silhouette is normal. Bones/joints: Ankylosing thoracic spondyloarthropathy, more clearly seen on the prior exam. IMPRESSION: Improved aeration of both lungs compared with 07/03/2021 as detailed above, suggesting decreasing pneumonia or edema.
[2021-07-09 17:43] LABS: Basophils % 0.3 % (0.1-2.0); Eosinophils # 0.1 K/mm3 (0.0-0.4); Eosinophils % 0.6 % (0.1-12.0); Hematocrit 36.2 % (42.0-52.0); Hemoglobin 11.6 g/dL (14.1-18.0); Lymphocytes % 10.8 % (10-50); Mean Corpuscular Hemoglobin 27.7 pg (27.0-31.2); Mean Corpuscular Volume 86.7 fl (80-94); Monocytes # 0.8 K/mm3 (0.1-1.0); Monocytes % 8.2 % (1.7-9.3); Neutrophils # 7.4 K/mm3 (1.8-7.8); Neutrophils % 80.2 % (37.0-80.0); Platelet Count 272 K/mm3 (142-424); Red Blood Count 4.18 M/mm3 (4.60-6.20); Red Cell Distribution Width 15.8 % (11.5-17.5); White Blood Count 9.3 K/mm3 (4.8-10.8)
== END ==
PROVIDERS: PCP Family Medicine; Visit Provider Family Medicine
DX: U07.1 COVID-19 (principal)
CPT/HCPCS: 36415; 71045; 85025; C9803; U0003; U0005

== ENCOUNTER 2021-07-10 13:03 | Emergency (ER) | payer MEDICARE, OTHER, SELFPAY ==
[2021-07-10] VITALS (12 sets, daily range): BP systolic 94–143; BP diastolic 44–66; PULSE 64–81; RESP 16–18; TEMP 36.8–36.9; O2SAT 90–100; BMI 25.0
--- NOTE | 2021-07-10 13:20 | XR_ITS ---
PROCEDURE INFORMATION: Exam: XR Chest Exam date and time: 07/10/2021 1:20 PM Age: 80 years old Clinical indication: Other: Weakness; Additional info: Covid positive, weakness, fall TECHNIQUE: Imaging protocol: XR of the chest. Portable AP upright exam 1:49 p.m. Views: 1 view. COMPARISON: CR XR CHEST PORTABLE 07/09/2021 5:39 PM FINDINGS: Tubes, catheters and devices: Overlying oxygen tubing. Lungs: Slightly worsened patchy airspace opacity and interstitial prominence in the mid and lower lungs compared with 07/09/2021, which could be increasing pneumonia or vascular congestion. No focal consolidation. Pleural spaces: Unremarkable. No significant pleural effusion. No pneumothorax. Heart/Mediastinum: The cardiac silhouette appears borderline enlarged, increased compared with the prior exam. Left subclavian cardiac pacer again noted. Vasculature: Calcified plaques in the aortic arch. Bones/joints: Chronic spinal degenerative changes. Acromioclavicular arthritis. Thoracic levoscoliosis. No definite acute fracture, as visualized. IMPRESSION: 1. Slightly increased patchy airspace opacity and interstitial prominence in the mid and lower lungs compared with 07/09/2021, which could be increasing pneumonia or vascular congestion. 2. No focal consolidation. 3. Borderline cardiomegaly, increased prominence of the cardiac silhouette compared with 07/09/2021.
--- NOTE | 2021-07-10 13:20 | CT_ITS ---
PROCEDURE INFORMATION: Exam: CT Head Without Contrast Exam date and time: 07/10/2021 1:20 PM Age: 80 years old Clinical indication: Weakness, extremity; Bilateral; Additional info: Fall, covid positive, generalized weakness TECHNIQUE: Imaging protocol: Computed tomography of the head without contrast. Radiation optimization: All CT scans at this facility use at least one of these dose optimization techniques: automated exposure control; mA and/or kV adjustment per patient size (includes targeted exams where dose is matched to clinical indication); or iterative reconstruction. COMPARISON: HEADWO CT head/brain wo con 11/25/2018 3:16 AM FINDINGS: Brain: No acute intracranial findings, compared with 11/25/2018. No intracranial hemorrhage. No edema, swelling or mass-effect. Chronic right posterior cerebral infarct centered in the posterior parietal lobe cortex and adjacent white matter, extending slightly into the occipital and posterior right temporal lobes, unchanged. Chronic small left fronto-parietal convexity cortical infarcts with adjacent white matter encephalomalacia. Chronic 3 mm right thalamic lacunar infarct series 3, image 32. There is moderate generalized cerebral atrophy. There are additional chronic white matter microvascular ischemic changes in both cerebral hemispheres. Chronic falcine calcification. Cerebral ventricles: The ventricles are mildly enlarged, most likely due to central atrophy. No significant hydrocephalus. Paranasal sinuses: Please see the maxillofacial CT report for detailed sinus findings. Chronic mucosal thickening scattered throughout the visualized sinuses, with no air-fluid levels. Mastoid air cells: Mastoids are unremarkable as visualized, no effusions. Orbital cavity: Correlate for previous bilateral lens replacement surgeries. Vasculature: Atherosclerotic calcified plaques in the intracranial carotid arteries. Bones/joints: No acute skull fracture. No lytic lesions. Nasal bone deformities consistent with injury of indeterminate age, to be further evaluated with facial CT. Soft tissues: There are no soft tissue masses or fluid collections. IMPRESSION: 1. No acute intracranial injury or skull fracture. 2. Extensive senescent changes as detailed above, with chronic bilateral cerebral infarcts, extensive white matter microvascular ischemic changes, cerebral atrophy, atherosclerotic disease. 3. There is no CT evidence of intracranial mass, intracranial hemorrhage, or acute infarct. 4. Additional nonemergency and chronic findings as above. 5. Please see the facial sinus CT report for detailed facial-sinus findings.
--- NOTE | 2021-07-10 13:20 | CT_ITS ---
PROCEDURE INFORMATION: Exam: CT Maxillofacial Without Contrast Exam date and time: 07/10/2021 1:20 PM Age: 80 years old Clinical indication: Other: Fall; Additional info: Fall, weakness, hit RT jaw on corner of dresser TECHNIQUE: Imaging protocol: Computed tomography images of the face without contrast. Radiation optimization: All CT scans at this facility use at least one of these dose optimization techniques: automated exposure control; mA and/or kV adjustment per patient size (includes targeted exams where dose is matched to clinical indication); or iterative reconstruction. COMPARISON: CT HEAD/BRAIN WO CON 07/10/2021 1:54 PM FINDINGS: Orbital cavity: No acute intraorbital findings. Globes appear grossly intact. Correlate for previous bilateral lens replacement surgeries. Benign scleral calcification. Bones/joints: Nasal bone deformities consistent with fracture of indeterminate age, series 3, images 26-27, this may be chronic rather than acute, correlate for point tenderness. No significantly depressed nasal fractures. Motion artifacts limit evaluation of the mandible; cortical irregularity in the left mental protuberance of the mandible series 3, image 69 and sagittal series 1002, images 37-43 are probably motion artifact rather than a true fracture, correlate for the area of pain/trauma. No other definite facial fracture or dislocation. Paranasal sinuses: There is slight bilateral inferior frontal sinus mucosal thickening. There is moderate bilateral ethmoid sinusitis with thickened mucosa and some opacified air cells. Bilateral sphenoid mucosal thickening mild on the right and [id number] on the left. Mild bilateral maxillary sinus mucosal thickening. No acute air-fluid levels, as visualized. Soft tissues: There are no soft tissue masses or fluid collections. Vasculature: Atherosclerotic calcified plaques noted in the cervical carotid arteries. Dental: The patient is edentulous. No acute findings. IMPRESSION: 1. Mild nasal bone fracture deformity of indeterminate age, this may be chronic rather than acute, correlate for point tenderness. No significantly depressed fracture. 2. Motion artifacts limit evaluation of the mandible; irregularity of the left mental protuberance of the mandible is probably motion rather than fracture, correlate for the area of pain/trauma. 3. No other acute facial bone fracture or dislocation. 4. [id number] chronic sinusitis, greatest in the ethmoid and left sphenoid sinuses. No acute air-fluid levels. 5. Orbital surgical changes, no acute intraorbital injury. 6. Additional nonemergency and chronic findings as above.
--- NOTE | 2021-07-10 13:20 | CT_ITS ---
PROCEDURE INFORMATION: Exam: CT Cervical Spine Without Contrast Exam date and time: 07/10/2021 1:20 PM Age: 80 years old Clinical indication: Weakness; Additional info: Fall TECHNIQUE: Imaging protocol: Computed tomography images of the cervical spine without contrast. Radiation optimization: All CT scans at this facility use at least one of these dose optimization techniques: automated exposure control; mA and/or kV adjustment per patient size (includes targeted exams where dose is matched to clinical indication); or iterative reconstruction. COMPARISON: HEADWO CT head/brain wo con 11/25/2018 3:16 AM FINDINGS: Bones/joints: No acute fracture or significant listhesis. Prominent chronic degenerative osteoarthrosis anteriorly C1-C2 with periarticular spurs, sclerosis and soft tissue calcifications. Multilevel cervical facet arthropathy, which appears greatest on the left at C3-C4 and C4-C5. Discs/Spinal canal/Neural foramina: Degenerative disc narrowing and spondylosis greatest at C5-C6, with vacuum phenomenon. Posterior disc bulges and protrusions indent the thecal sac throughout. This results in moderate spinal stenosis C5-C6, milder narrowing at the other levels. No high-grade spinal stenosis. Degenerative foraminal stenosis appears moderately severe on the left at the C4, C5 and C6 foramina, stenosis appears at least moderate at the right C6 foramen and moderately severe at the right C6 foramen. Prevertebral Space: No prevertebral swelling. Lungs: Interstitial scarring and emphysematous changes at the lung apices. No acute findings, as visualized. Vasculature: Atherosclerotic calcified plaques in the cervical carotid arteries. Soft tissues: There are no soft tissue masses or fluid collections.No acute findings. IMPRESSION: 1. No acute fracture or significant listhesis. 2. Multilevel degenerative disc disease, spondylosis, and facet arthropathy as detailed above. 3. Moderate central spinal canal narrowing C5-C6, milder narrowing at other levels. No high-grade spinal stenosis. 4. Moderately severe degenerative multilevel foraminal stenoses as detailed above. 5. Additional nonemergency and chronic findings as above.
[2021-07-10 13:52] LABS: Basophils % 0.3 % (0.1-2.0); Eosinophils # 0.1 K/mm3 (0.0-0.4); Eosinophils % 0.8 % (0.1-12.0); Hematocrit 35.5 % (42.0-52.0); Hemoglobin 11.2 g/dL (14.1-18.0); Lymphocytes # 1.1 K/mm3 (0.7-4.5); Lymphocytes % 10.8 % (10-50); Mean Corpuscular HGB Conc 31.4 g/dL (31.8-35.4); Mean Corpuscular Hemoglobin 27.1 pg (27.0-31.2); Mean Corpuscular Volume 86.2 fl (80-94); Mean Platelet Volume 8.7 fl (7.4-10.4); Monocytes # 0.9 K/mm3 (0.1-1.0); Neutrophils # 8.2 K/mm3 (1.8-7.8); Neutrophils % 79.1 % (37.0-80.0); Platelet Count 244 K/mm3 (142-424); Red Blood Count 4.12 M/mm3 (4.60-6.20); Red Cell Distribution Width 16.2 % (11.5-17.5); White Blood Count 10.4 K/mm3 (4.8-10.8)
--- NOTE | 2021-07-10 13:52 | PC.NURSE ---
Pt to CT
[2021-07-10 13:54] LABS: Chloride 96 mmol/L (98-107); Sodium 135 mmol/L (136-145)
[2021-07-10 13:55] LABS: Potassium 3.6 mmoL/L (3.5-5.1)
--- NOTE | 2021-07-10 13:55 | PC.NURSE ---
pt with rad
[2021-07-10 13:57] LABS: Alanine Aminotransferase 21 U/L (12-78); Alkaline Phosphatase 57 U/L (38-126); Aspartate Amino Transferase 29 U/L (17-59); Blood Urea Nitrogen 25 mg/dl (9-20); Creatinine Clearance Estimated 40 mL/min (50-200); Estimated Glomerular Filt Rate 49 ml/min (>60); GFR (African American) 59 ML/MIN (>60)
[2021-07-10 13:58] LABS: Albumin Level 3.6 g/dl (3.5-5.0); Albumin/Globulin Ratio 1.3 (1.1-1.8); Anion Gap 12.6 mEq/L (5-15); Calcium 8.4 mg/dl (8.4-10.2); Carbon Dioxide 30 mmol/L (22.0-30.0); Globulin 2.8 g/dL (1.3-3.2); Glucose 106 mg/dl (74-100); Total Protein,Serum 6.4 g/dl (6.3-8.2)
--- NOTE | 2021-07-10 14:04 | PC.NURSE ---
pt returned from rad
--- NOTE | 2021-07-10 14:28 | HMH.EDGENADL ---
ED Disposition Clinical Impression: Pneumonia due to COVID-19 virus, Cystitis Fall Qualifiers: Encounter type: initial encounter Qualified Code(s): W19.XXXA - Unspecified fall, initial encounter Facial contusion Qualifiers: Encounter type: initial encounter Qualified Code(s): S00.83XA - Contusion of other part of head, initial encounter Disposition: Home, Self-Care Condition on Discharge: Good Instructions: DI for Urinary Tract Infection (UTI), How to Prevent Falls, DI for COVID-19 (Suspected or Confirmed ) Additional Instructions: Decadron as prescribed for Covid. Return to the emergency department if worsening shortness of breath. Call Dr. Quan Monday for follow-up. Urine culture has been performed, results generally take 2 to 3 days. Follow-up the results of this test with your primary care provider within 2 to 3 days. Take Levaquin as prescribed for possible urinary tract infection. COVID-19 Isolation: Isolate yourself for a MINIMUM of 10 days from onset of symptoms: What to do: Monitor your symptoms. If you have an emergency warning sign (including trouble breathing), seek emergency medical care immediately. Stay in a separate room from other household members, if possible. Use a separate bathroom, if possible. Avoid contact with other members of the household and pets. Don?t share personal household items, like cups, towels, and utensils. Wear a mask when around other people if able. You can be around others AFTER: 10 days since symptoms first appeared AND 24 hours with no fever without the use of fever-reducing medications AND Other symptoms of COVID-19 are improving Prescriptions: dexAMETHasone [Decadron] 6 mg PO DAILY #7 tab Transmission Status: Pending to [facility] # levoFLOXacin [Levaquin 500mg tab] 500 mg PO DAILY #7 tab Transmission Status: Pending to [facility] # Referrals: Provider,MD Stephy [Primary Care Provider] - - Critical Care Critical Care Time: No Attestation: On 07/10/21, the high probability of a clinically significant, sudden or life threatening deterioration of the following system(s) required my full and direct attention, intervention and personal management. The time I documented below is in addition to time spent performing reported procedures but includes the following listed in this critical care notation. Medical Decision Making - Medical Records Medical records reviewed: Yes: I reviewed the patient's medical records. MR Comment: Reviewed Covid test, CBC and chest x-ray obtained yesterday as an outpatient. Covid test was positive. It does not appear that he had a positive test prior to that. Chest x-ray showed bilateral airspace disease. This airspace disease was not present on 07/03/2021. I reviewed the visit associated with that x-ray, which was a [facility] visit. He was seen for URI symptoms that have been present for 4 days. He did not have a Covid test at that time. He was treated for COPD exacerbation. Record indicates he has been immunized against Covid. - Han Inquiry Pt receiving controlled substance: No Vital Signs: 07/10/21 13:03 07/10/21 13:06 07/10/21 13:30 Temperature 98.3 F Temperature Source Oral Pulse Rate 68 67 Pulse Rate [Right Radial] 81 Respiratory Rate 16 Blood Pressure 107/50 L 94/44 L Blood Pressure [Right Arm] 107/50 L Blood Pressure Mean Blood Pressure Mean [Right Arm] 69 Blood Pressure Source [Right Arm] Automatic Cuff Blood Pressure Position [Right Arm] Sitting 02 Sat by Pulse Oximetry 90 L 91 L 91 L Oxygen Delivery Method Room Air 07/10/21 14:05 07/10/21 14:30 07/10/21 15:00 Temperature Temperature Source Pulse Rate 64 69 70 Pulse Rate [Right Radial] Respiratory Rate 16 Blood Pressure 135/57 L 125/52 L 118/57 L Blood Pressure [Right Arm] Blood Pressure Mean 76 68 Blood Pressure Mean [Right Arm] Blood Pressur
--- NOTE | 2021-07-10 16:19 | PC.NURSE ---
Speaking with Dr Lawton at this time.
[2021-07-10 17:13] LABS: Microscopic, Urine URINE MICROSCOPIC (MICROSCOPIC)
[2021-07-10 17:23] LABS: Appearance,Urine CLEAR (Clear); Bilirubin,Urine Negative (Negative); Blood, Urine Negative (Negative); Color,Urine YELLOW (Yellow); Glucose,Urine (UA) Negative (Negative); Ketones,Urine Negative (Negative); Leukocyte Esterase,Urine Negative (Negative); Nitrate,Urine Negative (Negative); Protein,Urine 1+ (Negative); Urobilinogen,Urine 0.2 EU/dl (0.2)
[2021-07-10 17:33] LABS: Bacteria,Urine Trace /lpf; RBC,Urine Occasional #/hpf (0-3)
--- NOTE | 2021-07-10 18:01 | PC.NURSE ---
Removed pt's cano cath
== END 2021-07-10 18:39 | disposition home or self-care (01) ==
PROVIDERS: Emergency Provider Emergency Medicine
DX: J12.82 Pneumonia due to coronavirus disease 2019 (principal); U07.1 COVID-19; N30.00 Acute cystitis without hematuria; S00.83XA Contusion of other part of head, initial encounter; W01.190A Fall on same level from slipping, tripping and stumbling with subsequent striking against furniture, initial encounter; Y92.099 Unspecified place in other non-institutional residence as the place of occurrence of the external cause; J44.9 Chronic obstructive pulmonary disease, unspecified; K21.9 Gastro-esophageal reflux disease without esophagitis; I10 Essential (primary) hypertension; E78.5 Hyperlipidemia, unspecified; I25.2 Old myocardial infarction; Z99.81 Dependence on supplemental oxygen; Z87.891 Personal history of nicotine dependence; E11.9 Type 2 diabetes mellitus without complications; Z79.899 Other long term (current) drug therapy
CPT/HCPCS: 70450; 70486; 71045; 72125; 80053; 81001; 85025; 87086; 96374; 99284

== ENCOUNTER 2021-07-12 17:57 | Emergency (ER) | payer MEDICARE, OTHER, SELFPAY ==
--- NOTE | 2021-07-12 19:07 | PC.NURSE ---
pt left without being seen. pt expresses aggravation about wait times. pt states she will see pcp tomorrow.
[2021-07-12 19:11] VITALS: BP 0/0; PULSE 0; RESP 0; TEMP -17.7; TEMP 0; O2SAT 0
== END 2021-07-12 19:36 | disposition left against medical advice (07) ==
PROVIDERS: Emergency Provider Emergency Medicine; PCP Family Medicine
DX: Z53.21 Procedure and treatment not carried out due to patient leaving prior to being seen by health care provider (principal)
CPT/HCPCS: 99211

== ENCOUNTER 2021-07-13 13:32 | Inpatient (IN) | payer OTHER, MEDICARE, SELFPAY ==
[2021-07-13] VITALS (15 sets, daily range): BP systolic 92–144; BP diastolic 36–71; PULSE 63–101; RESP 18–32; TEMP 36.6–37.9; O2SAT 84–99; BMI 27.4; BMI 23.3; BMI 23.8
--- NOTE | 2021-07-13 14:04 | ECG_ITS ---
APPROVED REPORT Exam: Resting ECG HR:88 bpm ECG Measurements Heart Rate 88 AXES QRSd 90 QRS -18 QT 406 T 169 QTc 491 Conclusion Atrial fibrillation with premature ventricular or aberrantly conducted complexes Anterior infarct, age undetermined ST & T wave abnormality, consider lateral ischemia or digitalis effect Abnormal ECG Electronically signed by : Rikki Stewart MD 07/13/2021 17:54:04
--- NOTE | 2021-07-13 14:10 | XR_ITS ---
PROCEDURE: XR CHEST PORTABLE CLINICAL HISTORY: SOA, covid + COMPARISON: CT CHESTWO CT chest wo con from 04/19/2018 CR XR CHEST 2V from 07/03/2021 CR XR CHEST PORTABLE from 07/09/2021 CR XR CHEST PORTABLE from 07/10/2021 FINDINGS: Normal heart size. RV pacemaker present from left subclavian approach. COPD. Patchy density left lower lobe consistent with pneumonia and or atelectatic changes. Focal pleural based density left lower lung zone laterally unchanged. Chronic changes are present in the lingula. No acute bony abnormalities. IMPRESSION: Left lower lobe atelectasis and or infiltrate with chronic changes in the lingula and chronic left-sided focal pleural thickening. Dictated by: Claudio Alamo MD 07/13/2021 14:28 Claudio Alamo MD in OV 07/13/2021 14:28
[2021-07-13 14:18] LABS: Basophils % 0.2 % (0.1-2.0); Eosinophils % 0.2 % (0.1-12.0); Hematocrit 32.7 % (42.0-52.0); Hemoglobin 10.4 g/dL (14.1-18.0); Lymphocytes # 1.1 K/mm3 (0.7-4.5); Lymphocytes % 12.6 % (10-50); Mean Corpuscular HGB Conc 31.9 g/dL (31.8-35.4); Mean Corpuscular Hemoglobin 27.8 pg (27.0-31.2); Mean Corpuscular Volume 87.2 fl (80-94); Mean Platelet Volume 10.5 fl (7.4-10.4); Monocytes # 0.4 K/mm3 (0.1-1.0); Monocytes % 4.7 % (1.7-9.3); Neutrophils # 7.4 K/mm3 (1.8-7.8); Neutrophils % 82.4 % (37.0-80.0); Platelet Count 181 K/mm3 (142-424); Red Blood Count 3.75 M/mm3 (4.60-6.20); Red Cell Distribution Width 16.2 % (11.5-17.5); White Blood Count 8.9 K/mm3 (4.8-10.8)
[2021-07-13 14:22] LABS: Potassium 3.6 mmoL/L (3.5-5.1); Sodium 135 mmol/L (136-145)
[2021-07-13 14:24] LABS: Blood Urea Nitrogen 22 mg/dl (9-20); Creatinine Clearance Estimated 40 mL/min (50-200); Estimated Glomerular Filt Rate 53 ml/min (>60); GFR (African American) 64 ML/MIN (>60)
[2021-07-13 14:25] LABS: Alanine Aminotransferase 23 U/L (12-78); Albumin Level 3.5 g/dl (3.5-5.0); Albumin/Globulin Ratio 1.2 (1.1-1.8); Alkaline Phosphatase 62 U/L (38-126); Aspartate Amino Transferase 45 U/L (17-59); Bilirubin,Total 1.6 mg/dl (0.2-1.3); Calcium 8.1 mg/dl (8.4-10.2); Carbon Dioxide 30 mmol/L (22.0-30.0); Glucose 129 mg/dl (74-100); Total Protein,Serum 6.5 g/dl (6.3-8.2)
[2021-07-13 14:36] LABS: Troponin I 0.07 ng/ml (0.00-0.034)
[2021-07-13 15:30] LABS: Influenza A, PCR Not Detected (NotDetected); Influenza B, PCR Not Detected (NotDetected)
--- NOTE | 2021-07-13 15:32 | PC.NURSE ---
SaO2 98% on 3L per NC decreased pt O2 to 2L per NC at this time will continue to monitor pt notified me at this time that he wears O2 at night at home, pt is unsure of how many Liters of oxygen he is on. notified ER of this
[2021-07-13 15:47] LABS: Anion Gap 11.6 mEq/L (5-15); Chloride 97 mmol/L (98-107)
--- NOTE | 2021-07-13 15:57 | HMH.EDGENADL ---
ED Disposition Clinical Impression: Pneumonia due to COVID-19 virus, Elevated troponin Respiratory failure with hypoxia Qualifiers: Chronicity: acute on chronic Qualified Code(s): J96.21 - Acute and chronic respiratory failure with hypoxia Disposition: Admitted As Inpatient Condition on Discharge: Fair - Critical Care Critical Care Time: No Attestation: On 07/13/21, the high probability of a clinically significant, sudden or life threatening deterioration of the following system(s) required my full and direct attention, intervention and personal management. The time I documented below is in addition to time spent performing reported procedures but includes the following listed in this critical care notation. Medical Decision Making - Medical Records Medical records reviewed: Yes: I reviewed the patient's medical records. MR Comment: Reviewed recent visits at this facility. Seen in the urgent treatment center on 07/03/2021 for sinus symptoms, exacerbation of COPD. He did not have a Covid test, but did have a negative chest x-ray. It seems likely that this is when his Covid symptoms had started. He had indicated that symptoms started on 06/30/2021. Outpatient CBC, Covid test, and chest x-ray on 07/09/2021 which showed bilateral pneumonia consistent with Covid and a positive Covid test. Seen in the emergency department here by me on 07/10/2021. Had an extensive work-up after a fall. Discharged home on nasal cannula oxygen. He does have oxygen at home which he typically would wear only at night, but was not instructed to wear it 24 hours a day at the time of that visit. Case was discussed with his primary care provider. Discharged on Decadron for Covid, and Levaquin pending urine culture result. Came to the emergency department yesterday 07/12/2021 but left without treatment. - Han Inquiry Pt receiving controlled substance: No Vital Signs: 07/13/21 13:33 07/13/21 13:40 07/13/21 14:32 Temperature 99.1 F Temperature Source Oral Pulse Rate 64 Pulse Rate [Left Radial] 73 Respiratory Rate 32 H 27 H Blood Pressure 125/56 L Blood Pressure [Left Arm] 144/54 H Blood Pressure Mean Blood Pressure Mean [Left Arm] 84 Blood Pressure Source [Left Arm] Automatic Cuff Blood Pressure Position 02 Sat by Pulse Oximetry 84 L 94 L 96 Oxygen Delivery Method Room Air Nasal Cannula Oxygen Flow Rate (LPM) 3 3 07/13/21 15:01 07/13/21 15:20 07/13/21 15:29 Temperature 100.2 F H Temperature Source Oral Pulse Rate 68 101 H Pulse Rate [Left Radial] Respiratory Rate 24 18 Blood Pressure 118/36 L 109/71 L Blood Pressure [Left Arm] Blood Pressure Mean 68 83 Blood Pressure Mean [Left Arm] Blood Pressure Source [Left Arm] Blood Pressure Position 02 Sat by Pulse Oximetry 96 97 98 Oxygen Delivery Method Nasal Cannula Oxygen Flow Rate (LPM) 3 3 3 07/13/21 15:30 07/13/21 15:39 07/13/21 16:00 Temperature Temperature Source Pulse Rate 92 H 63 Pulse Rate [Left Radial] Respiratory Rate 20 22 Blood Pressure 102/45 L 94/43 L Blood Pressure [Left Arm] Blood Pressure Mean 71 60 Blood Pressure Mean [Left Arm] Blood Pressure Source [Left Arm] Blood Pressure Position 02 Sat by Pulse Oximetry 97 96 97 Oxygen Delivery Method Nasal Cannula Nasal Cannula Oxygen Flow Rate (LPM) 2 2 07/13/21 16:30 07/13/21 17:00 07/13/21 17:30 Temperature Temperature Source Pulse Rate 81 71 88 Pulse Rate [Left Radial] Respiratory Rate 25 H 24 24 Blood Pressure 92/40 L 109/45 L 102/54 L Blood Pressure [Left Arm] Blood Pressure Mean 61 56 65 Blood Pressure Mean [Left Arm] Blood Pressure Source [Left Arm] Blood Pressure Position 02 Sat by Pulse Oximetry 98 98 97 Oxygen Delivery Method Nasal Cannula Nasal Cannula Oxygen Flow Rate (LPM) 2 2 07/13/21 18:33 Temperature 100.2 F H Temperature Source Pulse Rate 88 Pulse Rate [Left Radial] Respiratory Rat
--- NOTE | 2021-07-13 16:46 | PC.NURSE ---
JACKY REDDY speaking with Dr. Carballo who is fashion illustrator for Dr. Quan
--- NOTE | 2021-07-13 16:56 | PC.NURSE ---
pt going to be admitted to [facility] [facility] aware of admission
--- NOTE | 2021-07-13 17:11 | PC.NURSE ---
pt states no needs at this time, notified pt is he will be admitted to the hospital call light within reach will continue to monitor
[2021-07-13 17:22] LABS: Lactic Acid 1.2 mmol/L (0.7-2.1)
[2021-07-13 17:29] LABS: Coronavirus 19, PCR Detected (NotDetected)
--- NOTE | 2021-07-13 18:03 | PC.NURSE ---
report called to sindy menendez rn
--- NOTE | 2021-07-13 18:10 | PC.NURSE ---
1800 report received form Yolanda Woods RN
[2021-07-13 18:33] LABS: Troponin I 0.06 ng/ml (0.00-0.034)
--- NOTE | 2021-07-13 18:56 | PC.NURSE ---
[id number] pt arrived on unit.
--- NOTE | 2021-07-13 19:43 | PC.NURSE ---
upon arrival to the unit pt was assessed. lung sounds are diminished but clear, bowel sounds are active in all quads. no edema noted.
[2021-07-13 21:16] LABS: Troponin I 0.05 ng/ml (0.00-0.034)
[2021-07-14] VITALS (13 sets, daily range): BP systolic 107–146; BP diastolic 52–74; PULSE 70–86; RESP 14–18; TEMP 36.5–36.8; O2SAT 91–97; BMI 22.8
--- NOTE | 2021-07-14 03:00 | PC.NURSE ---
A&OX4. PT HAS BEEN MOVED FROM 1.5LNC TO RA. TOLERATING WELL. PT UP WITH STANDBY ASSIST IN ROOM. PT TOLERATED BED BATH THIS SHIFT. PT C/O GUERRERO X1, TX PER SEP. NO OTHER C/O THUS FAR, PT RESTING IN BED INTERMITTENTLY. VSS WILL CONTINUE TO MONITOR.
--- NOTE | 2021-07-14 07:42 | HMH.PHAINT ---
Home medications verified with [facility]
--- NOTE | 2021-07-14 08:46 | HMH.HP ---
*Admission Date: 07/13/21 <Ana Garcia - 07/14/21 09:13> *Chief complaint: SOB <Ana Garcia - 07/14/21 09:13> *History of present illness: Mr. Kim is an 80-year-old male with a history of COPD, type 2 diabetes mellitus, peptic ulcer, GERD, coronary artery disease with diastolic heart failure, diverticulosis, peripheral vascular disease, hypertension, anemia, chronic atrial fib, renal insufficiency and BPH who presented to [facility] emergency room with progressive cough and shortness of breath. He had a telehealth on 07/09/[address] Quan and at that time he had a horrible cough. He sounded congestion and was very short of breath. At that time he did test positive for Covid. He again had a telehealth with Dr. Quan yesterday at which time he had some altered mental status as per family and he was directed to the emergency room. Patient is vague with when symptoms started. He now states he is breathing well. He denies chest pain. Patient did have a chest x-ray on 07/09/2021 which showed bilateral pneumonia consistent with Covid with a positive Covid test. He was again seen on 07/10/2021 in the ER after A fall. He was discharged home on nasal oxygen which he was already wearing at night and was instructed to wear 24 hours a day. He was discharged on Decadron for Covid and Levaquin. With evaluation on 07/13 prior to admission patient had a temperature of 99.1. He was given IV Levaquin, acetaminophen and dexamethasone IV. Due to treatment failure as an outpatient he was then admittedFor further treatment. <Ana Garcia - 07/14/21 09:13> [facility] History Medical History: Reports:: Arrhythmia, Atherosclerotic Heart Disease, Atrial Fibrillation, Congestive Heart Failure, Chronic Obstructive Pulmonary Disease (COPD), Coronary Artery Disease, Diabetes Mellitus Type 2, Gall Bladder Disease, Gastroesophageal Reflux Disease(GERD), Home Oxygen, Hyperlipidemia, Hypertension, Internal Pacemaker, Lung Disease, Myocardial Infarction, Palpitations, Peripheral Artery Disease, Peripheral Vascular Disease, Renal Disease, Renal Insufficiency, Transient Ischemic Attacks (TIA), Ulcer, Urinary Tract Infection Denies:: Cancer, Diabetes Mellitus Type 1, Hepatitis, MRSA, Seizures <Ana Garcia 07/14/21 09:13> *Have you ever received a pneumonia vaccine?: Yes <Ana Garcia 07/14/21 09:13> *Have you received a flu vaccine this season?: Yes <Ana Garcia 07/14/21 09:13> Other Medical History: Reports: Anemia, Arthritis, Cataracts. Denies: Hypothyroidism, Thyroid Disease <Ana Garcia 07/14/21 09:13> Laterality Cases: Bilateral: Myringotomy (Ear Tubes) <Ana Garcia 07/14/21 09:13> Other Surgeries: Yes: Angiogram, CABG, Cardiac Catheterization, Cholecystectomy, Colonoscopy, Coronary Stent, Pacemaker, Ureter Stent, Other <Ana Garcia 07/14/21 09:13> Amputation: No <Ana Garcia 07/14/21 09:13> Fractures: No <Ana Garcia 07/14/21 09:13> - *Social History Smoking Status: Former smoker <Ana Garcia 07/14/21 09:13> Tobacco Type: cigarettes <Ana Garcia 07/14/21 09:13> # Packs/Day (cigarettes): 1 <Ana Garcia 07/14/21 09:13> #Yrs smoked (if former smoker): 50 <Ana Garcia 07/14/21 09:13> Alcohol Intake: never <Ana Garcia 07/14/21 09:13> Alcohol Intake Frequency:: a few times a month <Ana Garcia 07/14/21 09:13> Substance Use Type: denies use <Ana Garcia 07/14/21 09:13> *Occupational Status:: retired <Ana Garcia 07/14/21 09:13> Housing: house <Ana Garcia 07/14/21 09:13> Household Members: children <Ana Garcia 07/14/21 09:13> *Travel in the last 8 weeks: None <Ana Garcia 07/14/21 09:13> Family Hx:: No significant family history <Ana Garcia 07/14/21 09:13> Review of Systems - Constitutional Denies fever(s) <Ana Garcia 07/14/21 09:13> - Eyes Denies change in vision <Ana Garcia - 07/14/21 09:13> - ENT Denies ear pain, Jaysonie
--- NOTE | 2021-07-14 14:20 | PC.NURSE ---
RESPIRATORY CARE: PT HAD A CUP HE WAS COUGHING SPUTUM INTO, GAVE HIM A SPUTUM CUP AND INSTRUCTED HIM TO COUGH INTO THAT SO WE CAN GET A SPUTUM. PT UNDERSTANDING.
--- NOTE | 2021-07-14 19:26 | PC.NURSE ---
Pt alert x 3, with intermittent mild confusion at times. Remains on RA. VSS. NAD. Pt pleasant and [place].
[2021-07-15] VITALS: BP 131/63; PULSE 80; RESP 18; TEMP 36.6; O2SAT 93
--- NOTE | 2021-07-15 02:39 | PC.NURSE ---
A&OX4 MAJORITY OF SHIFT, BUT DOES HAVE MOMENTS OF CONFUSION. PT STATED TONIGHT THAT A MOUSE RAN UP AND BIT HIS FINGER. TOLERATING RA WELL. UP INDEPENDENTLY IN ROOM, TOLERATING WELL. PT HAS HAD NO C/O THUS FAR, RESTING IN BED INTERMITTENTLY. VSS WILL CONTINUE TO MONITOR.
[2021-07-15 04:00] VITALS: BP 136/57; PULSE 80; RESP 18; TEMP 36.7; O2SAT 95
--- NOTE | 2021-07-15 06:37 | PC.NURSE ---
PT IS SEEING BIRDS IN HIS ROOM THIS MORNING. IS MORE CONFUSED AT THIS TIME. PLEASANT AND RESTING IN BED.
[2021-07-15 06:42] VITALS: PULSE 76; PULSE 83; O2SAT 97
[2021-07-15 06:50] VITALS: BMI 22.9
[2021-07-15 07:02] LABS: Chloride 108 mmol/L (98-107); Potassium 3.8 mmoL/L (3.5-5.1); Sodium 141 mmol/L (136-145)
[2021-07-15 07:04] LABS: Blood Urea Nitrogen 23 mg/dl (9-20); Creatinine Clearance Estimated 51 mL/min (50-200); Estimated Glomerular Filt Rate 81 ml/min (>60); GFR (African American) 98 ML/MIN (>60)
[2021-07-15 07:05] LABS: Alanine Aminotransferase 29 U/L (12-78); Albumin Level 2.6 g/dl (3.5-5.0); Alkaline Phosphatase 47 U/L (38-126); Anion Gap 10.8 mEq/L (5-15); Aspartate Amino Transferase 57 U/L (17-59); Bilirubin,Total 0.8 mg/dl (0.2-1.3); Calcium 7.2 mg/dl (8.4-10.2); Carbon Dioxide 26 mmol/L (22.0-30.0); Globulin 2.5 g/dL (1.3-3.2); Glucose 153 mg/dl (74-100); Total Protein,Serum 5.1 g/dl (6.3-8.2)
[2021-07-15 08:00] VITALS: BP 131/63; PULSE 103; RESP 19; TEMP 36.6; O2SAT 92
--- NOTE | 2021-07-15 08:58 | HMH.ACPN2 ---
<Alison Graves - Last Filed: 07/15/21 08:58> Internal Medicine - PN: Subj *Date: 07/15/21 *Time: 08:58 Interval history: Patient is somewhat confused this morning. He states he wants to get out of the bed and wants to go home. He has not been on any oxygen with satisfactory room air saturations. He denies any pain other than in his upper abdomen. He did sleep last night. Exam Vital signs and Labs for Last 24 Hours: Temp Pulse Resp BP Pulse Ox 97.8 F 103 H 19 131/63 92 L 07/15/21 08:00 07/15/21 08:00 07/15/21 08:00 07/15/21 08:00 07/15/21 08:00 Laboratory Results - last 24 hr 07/15/21 06:20: Sodium 141, Potassium 3.8, Chloride 108 H, Carbon Dioxide 26, Anion Gap 10.8, BUN 23 H, Creatinine 0.90 D, Estimated Creat Clear 51, Estimated GFR 81, Est GFR ( Amer) 98 D, Glucose 153 H, Calcium 7.2 L, Total Bilirubin 0.8, AST 57 D, ALT 29 D, Alkaline Phosphatase 47, Total Protein 5.1 L, Albumin 2.6 L, Globulin 2.5, Albumin/Globulin Ratio 1.0 L I & O for Last 24 hours: Intake & Output 07/12/21 07/13/21 07/14/21 07/15/21 11:59 11:59 11:59 11:59 Intake Total 360 / 360 540 / 540 Output Total 250 / 250 400 / 400 Balance 110 / 110 140 / 140 Weight 137 lb 1 oz 137 lb 12.623 oz - Constitutional no acute distress - *Routine Respiratory Exam Present: rhonchi - *Routine Cardiovascular Exam Present: RRR - *Routine Abdominal Exam Present: soft, normoactive bowel sounds, tenderness (Epigastric area) - *Routine Extremities Exam Absent: cyanosis, clubbing, edema - *Routine Skin Exam Present: warm. Absent: rash - *Routine Neurological Exam Present: alert, oriented X3 Assessment and Plan (1) GERD (gastroesophageal reflux disease) Status: Chronic Category: Medical Code(s): K21.9 - Gastro-esophageal reflux disease without esophagitis (2) Elevated troponin Status: Acute Category: Medical Code(s): R74.8 - Abnormal levels of other serum enzymes (3) Pneumonia due to COVID-19 virus Status: Acute Category: Medical Code(s): U07.1 - COVID-19; J12.82 - Pneumonia due to coronavirus disease 2019 (4) Respiratory failure with hypoxia Status: Acute Qualifiers: Chronicity: acute on chronic Qualified Code(s): J96.21 - Acute and chronic respiratory failure with hypoxia Category: Medical Code(s): J96.91 - Respiratory failure, unspecified with hypoxia (5) Acute exacerbation of chronic obstructive airways disease Status: Acute Category: Medical Code(s): J44.1 - Chronic obstructive pulmonary disease with (acute) exacerbation (6) Anemia Status: Chronic Qualifiers: Anemia type: unspecified type Qualified Code(s): D64.9 - Anemia, unspecified Category: Medical Code(s): D64.9 - Anemia, unspecified (7) CAD (coronary artery disease) Status: Chronic Qualifiers: Coronary Disease-Associated Artery/Lesion type: [place] artery [place] vs. transplanted heart: [place] heart Associated angina: with unspecified form of angina Qualified Code(s): I25.119 - Atherosclerotic heart disease of [place] coronary artery with unspecified angina pectoris Category: Medical Code(s): I25.10 - Atherosclerotic heart disease of [place] coronary artery without angina pectoris (8) DM2 (diabetes mellitus, type 2) Status: Chronic Qualifiers: Diabetes mellitus senior living insulin use: without senior living use Diabetes mellitus complication status: with neurologic complications Diabetes mellitus complication detail: with polyneuropathy Qualified Code(s): E11.42 - Type 2 diabetes mellitus with diabetic polyneuropathy Category: Medical Code(s): E11.9 - Type 2 diabetes mellitus without complications (9) Left lower lobe pneumonia Status: Acute Category: Medical Code(s): J18.9 - Pneumonia, unspecified organism - Assessment and plan all Dx Assessment and Plan for all problems:: Patient seems to be stable this morning other than some mild conf
[2021-07-15 09:08] LABS: Basophils % 0.1 % (0.1-2.0); Hematocrit 28.8 % (42.0-52.0); Hemoglobin 9.2 g/dL (14.1-18.0); Lymphocytes # 0.6 K/mm3 (0.7-4.5); Lymphocytes % 6.4 % (10-50); Mean Corpuscular HGB Conc 31.9 g/dL (31.8-35.4); Mean Corpuscular Hemoglobin 27.5 pg (27.0-31.2); Mean Platelet Volume 10.8 fl (7.4-10.4); Monocytes # 0.4 K/mm3 (0.1-1.0); Monocytes % 3.8 % (1.7-9.3); Neutrophils # 8.3 K/mm3 (1.8-7.8); Neutrophils % 89.7 % (37.0-80.0); Platelet Count 165 K/mm3 (142-424); Red Blood Count 3.35 M/mm3 (4.60-6.20); Red Cell Distribution Width 16.8 % (11.5-17.5); White Blood Count 9.2 K/mm3 (4.8-10.8)
[2021-07-15 09:10] LABS: MANUAL DIFFERENTIAL MANUAL DIFFERENTIAL (MANUAL DIFF)
[2021-07-15 09:20] VITALS: PULSE 75; PULSE 76
[2021-07-15 10:40] VITALS: BMI 22.9
[2021-07-15 12:00] VITALS: PULSE 88; RESP 18; TEMP 35.8; O2SAT 95
[2021-07-15 12:40] LABS: Lymphocytes % 5 % (10-50); Monocytes % 4 % (2-9); Neutrophils % 91 % (42-76); Total Cells Counted 100
[2021-07-15 12:41] LABS: Platelet Estimate Normal
[2021-07-15 12:42] LABS: Anisocytosis 1+; Hypochromasia 1+; Macrocytosis 1+
--- NOTE | 2021-07-15 14:27 | PC.NURSE ---
Patient ready for discharge to home today.
[2021-07-18 13:26] LABS: POC Glucose,Bedside 219 (70-110)
[2021-07-18 13:26] LABS: POC Glucose,Bedside 238 (70-110)
[2021-07-18 13:26] LABS: POC Glucose,Bedside 142 (70-110)
[2021-07-18 13:26] LABS: POC Glucose,Bedside 182 (70-110)
[2021-07-18 13:26] LABS: POC Glucose,Bedside 193 (70-110)
--- NOTE | 2021-07-18 22:33 | HMH.DCSUM ---
General - General Admission date:: 07/13/21 Discharge date: 07/15/21 HPI HPI: Mr. 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 He had a telehealth on 07/09/[address] Quan and at that time he had a horrible cough. He sounded congestion and was very short of breath. At that time he did test positive for Covid. He again had a telehealth with Dr. Quan yesterday at which time he had some altered mental status as per family and he was directed to the emergency room. Patient is vague with when symptoms started. He now states he is breathing well. He denies chest pain. Patient did have a chest x-ray on 07/09/2021 which showed bilateral pneumonia consistent with Covid with a positive Covid test. He was again seen on 07/10/2021 in the ER after A fall. He was discharged home on nasal oxygen which he was already wearing at night and was instructed to wear 24 hours a day. He was discharged on Decadron for Covid and Levaquin. With evaluation on 07/13 prior to admission patient had a temperature of 99.1. He was given IV Levaquin, acetaminophen and dexamethasone IV. Due to treatment failure as an outpatient he was then admitted for further treatment. Hospital Course Hospital Course: His troponin I's were slightly elevated but trending downwards. He was started on Covid protocol and his chest x-ray showed a left lower lobe pneumonia. By 07/15/2021 he was slightly confused, but wanted to get out of bed and go home. He had not been on any oxygen and had satisfactory room air saturations. He denied any pain other than in his upper abdomen. He was able to sleep. The patient's repeat CBC returned and was stable. His case was discussed with his daughter and it was felt he could be discharged home on Levaquin. He will follow-up with Dr. Quan. Objective Vital signs: Temp Pulse Resp BP Pulse Ox 96.4 F L 88 18 131/63 95 07/15/21 12:00 07/15/21 12:00 07/15/21 12:00 07/15/21 08:00 07/15/21 12:00 Narrative: - Constitutional no acute distress - *Routine Respiratory Exam Present: rhonchi - *Routine Cardiovascular Exam Present: RRR - *Routine Abdominal Exam Present: soft, normoactive bowel sounds, tenderness (Epigastric area) - *Routine Extremities Exam Absent: cyanosis, clubbing, edema - *Routine Skin Exam Present: warm. Absent: rash - *Routine Neurological Exam Present: alert, oriented X3 Results Labs on day of discharge: Labs from last 24 hours 07/14/21 07/14/21 07/14/21 19:31 16:05 11:57 POC Glucose 193 H 238 H 182 H 07/14/21 07/13/21 05:03 21:46 POC Glucose 219 H 142 H DS: Diagnosis - Discharge Diagnosis (1) GERD (gastroesophageal reflux disease) Status: Chronic (2) Elevated troponin Status: Acute (3) Pneumonia due to COVID-19 virus Status: Acute (4) Respiratory failure with hypoxia Status: Acute (5) Acute exacerbation of chronic obstructive airways disease Status: Acute (6) Anemia Status: Chronic (7) CAD (coronary artery disease) Status: Chronic (8) DM2 (diabetes mellitus, type 2) Status: Chronic (9) Left lower lobe pneumonia Status: Acute Discharge Plan - Patient Discharge Instructions ACTIVITY: Continue current activity DIET: continue same diet Patient Instructions: Nutrition and Hydration: [employer] Against COVID-19 - Follow up Plan Follow up with: Colby Quan MD [Primary Care Provider] - 2 weeks Disposition: Home, Self-Care Condition at discharge:: Stable Home Medications: Home Medications Medication Instructions Recorded Confirmed
== END 2021-07-15 15:40 | disposition home or self-care (01) | DRG 177 ==
LOC: ER 13:38 → ICU 18:59
PROVIDERS: Admitting Provider Family Medicine; Emergency Provider Emergency Medicine; PCP Family Medicine; Visit Provider Family Medicine
DX: U07.1 COVID-19 (principal); J96.21 Acute and chronic respiratory failure with hypoxia; I50.30 Unspecified diastolic (congestive) heart failure; J44.1 Chronic obstructive pulmonary disease with (acute) exacerbation; I48.20 Chronic atrial fibrillation, unspecified; R77.8 Other specified abnormalities of plasma proteins; I25.10 Atherosclerotic heart disease of native coronary artery without angina pectoris; K21.9 Gastro-esophageal reflux disease without esophagitis; Z99.81 Dependence on supplemental oxygen; E78.5 Hyperlipidemia, unspecified; I11.0 Hypertensive heart disease with heart failure; Z95.0 Presence of cardiac pacemaker; I25.2 Old myocardial infarction; E11.51 Type 2 diabetes mellitus with diabetic peripheral angiopathy without gangrene; Z86.73 Personal history of transient ischemic attack (TIA), and cerebral infarction without residual deficits; E03.9 Hypothyroidism, unspecified; M19.90 Unspecified osteoarthritis, unspecified site; Z87.891 Personal history of nicotine dependence; D64.9 Anemia, unspecified; Z79.84 Long term (current) use of oral hypoglycemic drugs; Z79.02 Long term (current) use of antithrombotics/antiplatelets
CPT/HCPCS: 36415; 71045; 80053; 82962; 83605; 84484; 85007; 85025; 87040; 87205; 93005; 94640; 94760; 96365; 96375; 99285; C9803; J1956; U0003; U0005

== ENCOUNTER → 2021-07-30 10:14 | Outpatient (CLI) | payer MEDICARE, OTHER, SELFPAY ==
[2021-07-30 10:49] LABS: Chloride 107 mmol/L (98-107); Potassium 4.3 mmoL/L (3.5-5.1); Sodium 139 mmol/L (136-145)
[2021-07-30 10:51] LABS: Alanine Aminotransferase 23 U/L (12-78); Aspartate Amino Transferase 42 U/L (17-59); Blood Urea Nitrogen 9 mg/dl (9-20); Estimated Glomerular Filt Rate 108 ml/min (>60); GFR (African American) 131 ML/MIN (>60)
[2021-07-30 10:52] LABS: Albumin Level 2.9 g/dl (3.5-5.0); Albumin/Globulin Ratio 1.1 (1.1-1.8); Alkaline Phosphatase 57 U/L (38-126); Anion Gap 10.3 mEq/L (5-15); Bilirubin,Total 2.4 mg/dl (0.2-1.3); Calcium 8.1 mg/dl (8.4-10.2); Carbon Dioxide 26 mmol/L (22.0-30.0); Globulin 2.7 g/dL (1.3-3.2); Glucose 108 mg/dl (74-100); Iron 39 ug/dL (49-181); Total Protein,Serum 5.6 g/dl (6.3-8.2)
[2021-07-30 11:24] LABS: Thyroid Stimulating Hormone 3.14 uIU/mL (0.465-4.68)
== END ==
PROVIDERS: Visit Provider Family Medicine
DX: D64.9 Anemia, unspecified (principal); R63.4 Abnormal weight loss
CPT/HCPCS: 36415; 80053; 83540; 84443

== ENCOUNTER 2021-11-06 15:58 | Emergency (ER) | payer MEDICARE, OTHER, SELFPAY ==
[2021-11-06] VITALS (7 sets, daily range): BP systolic 189–203; BP diastolic 81–98; PULSE 58–69; RESP 15–24; TEMP 36.3; O2SAT 98–100; BMI 27.7
--- NOTE | 2021-11-06 15:58 | ECG_ITS ---
APPROVED REPORT Exam: Resting ECG HR:67 bpm ECG Measurements Heart Rate 67 AXES QRSd 100 QRS -27 QT 434 T 119 QTc 449 Conclusion ATRIAL FIBRILLATION WITH ABERRANT CONDUCTION OR VENTRICULAR PREMATURE COMPLEXES BORDERLINE LEFT AXIS DEVIATION [QRS AXIS < -20] ST DEVIATION AND MODERATE T-WAVE ABNORMALITY, CONSIDER LATERAL ISCHEMIA [-0.1+ mV T-WAVE IN I/aVL/V5/V6] ABNORMAL ECG UNCONFIRMED REPORT Electronically signed by : Rikki Stewart MD 11/08/2021 15:59:54
--- NOTE | 2021-11-06 16:22 | HMH.EDCP ---
ED Disposition Clinical Impression: Atypical chest pain Disposition: Home, Self-Care Condition on Discharge: Fair Instructions: DI for Atypical Chest Pain Additional Instructions: Please follow-up with your primary care doctor and/or your information assurance officer within 1 week for further work-up and blood pressure control. Return immediately to the emergency department if you feel worse in any way. Referrals: Provider,Referral, [Primary Care Provider] - - Critical Care Critical Care Time: No Attestation: On 11/06/21, the high probability of a clinically significant, sudden or life threatening deterioration of the following system(s) required my full and direct attention, intervention and personal management. The time I documented below is in addition to time spent performing reported procedures but includes the following listed in this critical care notation. Medical Decision Making - Medical Records Medical records reviewed: Yes: I reviewed the patient's medical records. - Han Inquiry Pt receiving controlled substance: No Vital Signs: 11/06/21 16:06 11/06/21 16:23 11/06/21 16:31 Temperature 97.4 F L Temperature Source Oral Pulse Rate 66 61 Pulse Rate [Left Radial] 60 Respiratory Rate 22 24 24 Blood Pressure 189/88 H 197/81 H Blood Pressure [Right Arm] 189/98 H Blood Pressure Mean 96 100 Blood Pressure Mean [Right Arm] 128 Blood Pressure Source [Right Arm] Automatic Cuff Blood Pressure Position [Right Arm] Sitting 02 Sat by Pulse Oximetry 99 99 98 Oxygen Delivery Method Room Air 11/06/21 17:00 Temperature Temperature Source Pulse Rate 65 Pulse Rate [Left Radial] Respiratory Rate 15 Blood Pressure 199/84 H Blood Pressure [Right Arm] Blood Pressure Mean 100 Blood Pressure Mean [Right Arm] Blood Pressure Source [Right Arm] Blood Pressure Position [Right Arm] 02 Sat by Pulse Oximetry 99 Oxygen Delivery Method - Lab Data Lab results reviewed: Yes: I reviewed the patient's lab results. Lab Results 11/06/21 16:10: WBC 7.2, RBC 4.32 L, Hgb 11.9 L, Hct 37.9 L, MCV 87.8, MCH 27.5, MCHC 31.3 L, RDW 16.4, Plt Count 208, MPV 10.8 H, Neut % (Auto) 65.9, Lymph % (Auto) 24.6, [place] % (Auto) 7.3, Eos % (Auto) 1.5, Baso % (Auto) 0.6, Neut # (Auto) 4.8, Lymph # (Auto) 1.8, [place] # (Auto) 0.5, Eos # (Auto) 0.1, Baso # (Auto) 0.0 11/06/21 16:10: Sodium 140, Potassium 3.6, Chloride 104, Carbon Dioxide 26, Anion Gap 13.6, BUN 13, Creatinine 0.90, Estimated Creat Clear 63, Estimated GFR 81, Est GFR ( Amer) 98, Glucose 106 H, Calcium 8.6, Total Bilirubin 2.3 H, AST 23, ALT 11 L, Alkaline Phosphatase 72, Troponin I < 0.01, Total Protein 7.5 D, Albumin 4.3, Globulin 3.2, Albumin/Globulin Ratio 1.3 Result diagrams: 11/06/21 16:10 11/06/21 16:10 Orders (Tests/Meds): ORDERS Category Date Time Status XR chest portable Stat Exams 11/06/21 16:27 Taken Troponin I Q3H Lab 11/06/21 19:30 Ordered Troponin I Q3H Lab 11/06/21 22:30 Ordered ECG Request by /Dave Stat Y 11/06/21 16:27 Ordered - ECG Data Tracing #1 I reviewed this ECG and interpreted as documented below: Patient is EKG was performed at 1558. It shows a atrial fibrillation rhythm with a ventricular response rate of 67 bpm. There are multiple wide complexes which are likely to be paced however no pacer spikes are visible. These are intermittent. There is no evidence of ischemia. Arrhythmias present: afib - MAUREEN Score for Non-Stemi Age of Patient: 80-89 years old Heart Rate: 50-69 bpm Systolic Blood Pressure: 160-199 mmHg Serum Creatinine: 0.80-1.19 mg/dl CHF Killip Class: I-No CHF Other Risk Factors: None Non-Stemi Risk Score: 111 Medical Decision Narrative: The patient's work-up in the emergency department not reveal any life-threatening or dangerous causes for the patient's pain. The pain is reproducible with palpation of the epigastric area. this suggests a gastritis as a source. The patient's t
--- NOTE | 2021-11-06 16:27 | XR_ITS ---
PROCEDURE INFORMATION: Exam: XR Chest Exam date and time: 11/06/2021 4:32 PM Age: 81 years old Clinical indication: Shortness of breath; Additional info: Chest pain TECHNIQUE: Imaging protocol: XR of the chest. Views: 1 view. COMPARISON: CR XR CHEST PORTABLE 07/13/2021 2:20 PM FINDINGS: Tubes, catheters and devices: Cardiac pulse generator lead is unchanged in position. Lungs: Ill-defined infiltrates are seen at both lung bases. Pleural spaces: Unremarkable. No pleural effusion. No pneumothorax. Heart/Mediastinum: Unremarkable. No cardiomegaly. Bones/joints: Unremarkable. IMPRESSION: Bilateral infiltrates may represent pneumonia.
[2021-11-06 17:01] LABS: Chloride 104 mmol/L (98-107)
[2021-11-06 17:02] LABS: Basophils % 0.6 % (0.1-2.0); Eosinophils # 0.1 K/mm3 (0.0-0.4); Eosinophils % 1.5 % (0.1-12.0); Hematocrit 37.9 % (42.0-52.0); Hemoglobin 11.9 g/dL (14.1-18.0); Lymphocytes # 1.8 K/mm3 (0.7-4.5); Lymphocytes % 24.6 % (10-50); Mean Corpuscular HGB Conc 31.3 g/dL (31.8-35.4); Mean Corpuscular Hemoglobin 27.5 pg (27.0-31.2); Mean Corpuscular Volume 87.8 fl (80-94); Mean Platelet Volume 10.8 fl (7.4-10.4); Monocytes # 0.5 K/mm3 (0.1-1.0); Monocytes % 7.3 % (1.7-9.3); Neutrophils # 4.8 K/mm3 (1.8-7.8); Neutrophils % 65.9 % (37.0-80.0); Platelet Count 208 K/mm3 (142-424); Potassium 3.6 mmoL/L (3.5-5.1); Red Blood Count 4.32 M/mm3 (4.60-6.20); Red Cell Distribution Width 16.4 % (11.5-17.5); Sodium 140 mmol/L (136-145); White Blood Count 7.2 K/mm3 (4.8-10.8)
[2021-11-06 17:04] LABS: Alanine Aminotransferase 11 U/L (12-78); Albumin Level 4.3 g/dl (3.5-5.0); Albumin/Globulin Ratio 1.3 (1.1-1.8); Alkaline Phosphatase 72 U/L (38-126); Aspartate Amino Transferase 23 U/L (17-59); Bilirubin,Total 2.3 mg/dl (0.2-1.3); Blood Urea Nitrogen 13 mg/dl (9-20); Creatinine Clearance Estimated 63 mL/min (50-200); Estimated Glomerular Filt Rate 81 ml/min (>60); GFR (African American) 98 ML/MIN (>60); Globulin 3.2 g/dL (1.3-3.2); Total Protein,Serum 7.5 g/dl (6.3-8.2)
[2021-11-06 17:05] LABS: Anion Gap 13.6 mEq/L (5-15); Calcium 8.6 mg/dl (8.4-10.2); Carbon Dioxide 26 mmol/L (22.0-30.0); Glucose 106 mg/dl (74-100)
[2021-11-06 17:21] LABS: Troponin I < 0.01 ng/ml (0.00-0.034)
== END 2021-11-06 17:51 | disposition home or self-care (01) ==
PROVIDERS: Emergency Provider Emergency Medicine
DX: R07.89 Other chest pain (principal); R00.2 Palpitations; R42 Dizziness and giddiness; R10.13 Epigastric pain; G93.41 Metabolic encephalopathy; D64.9 Anemia, unspecified; I50.9 Heart failure, unspecified; I25.10 Atherosclerotic heart disease of native coronary artery without angina pectoris; I25.2 Old myocardial infarction; I48.91 Unspecified atrial fibrillation; I49.5 Sick sinus syndrome; I70.1 Atherosclerosis of renal artery; I73.9 Peripheral vascular disease, unspecified; K21.9 Gastro-esophageal reflux disease without esophagitis; E78.5 Hyperlipidemia, unspecified; E11.9 Type 2 diabetes mellitus without complications; K76.9 Liver disease, unspecified; M19.90 Unspecified osteoarthritis, unspecified site; N28.9 Disorder of kidney and ureter, unspecified; H26.9 Unspecified cataract; Z79.01 Long term (current) use 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s; Z79.02 Long term (current) use of antithrombotics/antiplatelets; Z79.51 Long term (current) use of inhaled steroids; Z79.84 Long term (current) use of oral hypoglycemic drugs; Z99.81 Dependence on supplemental oxygen; Z79.899 Other long term (current) drug therapy; Z88.0 Allergy status to penicillin; Z95.5 Presence of coronary angioplasty implant and graft; Z86.73 Personal history of transient ischemic attack (TIA), and cerebral infarction without residual deficits; Z87.440 Personal history of urinary (tract) infections; Z87.891 Personal history of nicotine dependence; Z82.49 Family history of ischemic heart disease and other diseases of the circulatory system
CPT/HCPCS: 71045; 80053; 84484; 85025; 93005; 99285

== ENCOUNTER → 2021-12-22 07:44 | Outpatient (CLI) | payer MEDICARE, OTHER, SELFPAY ==
--- NOTE | 2021-12-22 08:13 | CT_ITS ---
FINAL REPORT CLINICAL HISTORY: HTN FINDINGS: Post contrast axial imaging of the aorta and bilateral lower extremity was obtained and reviewed. This study was performed with techniques to keep radiation doses as low as reasonably achievable (ALARA). Individualized dose reduction techniques using automated exposure control or adjustment of mA and/or kV according to the patient's size were employed. There are postoperative changes to the aorta with an aortoiliac graft. The graft begins inferior to the renal arteries. The graft is patent. There is no evidence of dissection. The celiac axis is patent. There is mild stenosis at its origin. The branch vessels are patent. There is calcification at the origin of the superior mesenteric artery with mild stenosis. The more distal branches are patent. The inferior mesenteric artery is likely occluded at its origin but fills via collaterals. The bilateral renal arteries are patent. The [place] left common iliac artery and left external iliac artery are occluded. The [place] right common iliac artery and right internal and external iliac arteries are patent. Right: The graft anastomoses to the right common femoral artery. The anastomosis is patent. The right superficial femoral artery is densely calcified. Patency is very difficult to determine. The right profunda artery is patent to the mid thigh. The popliteal artery reconstitutes in the region of the adductor hiatus via collaterals and is patent otherwise. The proximal SWEETIE, [employer], and peroneal arteries are patent. The S[place]ETIE and peroneal arteries are not visualized in the distal leg. There is visualization of the posterior tibial artery to the ankle. Left: The iliac graft is patent. The left common femoral artery is patent. As on the right, there is dense calcification in left superior femoral artery. It may be occluded. The left profunda artery is patent to the mid thigh. The popliteal artery reconstitutes in the distal thigh from collaterals. The proximal portions of the SWEETIE, [employer] EFF[employer]S [employer]OR, and peroneal arteries are patent. The peroneal and SWEETIE are not seen in the distal calf. The posterior tibial artery continues to the hindfoot. Nonvascular findings: There are small bilateral pleural effusions. There are 3 subcentimeter areas of hyperenhancement in the dome of the liver which could be related to perfusion, small liver lesions are not excluded. There are bilateral hypodense renal lesions, favor cysts. The remaining solid organs are without acute abnormality. There is no acute GI tract abnormality. The prostate is enlarged. There is no lymphadenopathy or ascites. There is an occluded femoral femoral bypass graft. IMPRESSION: Patent aortoiliac bypass graft. Atherosclerotic disease of the bilateral lower extremities as above. Possible perfusion anomalies in the liver. Reviewed, Interpreted and Dictated by Maddy Sal MD Transcribed by Ana Torres Authenticated by Maddy Sal MD on 12/22/2021 02:51:12 PM [facility]
[2021-12-22 08:29] LABS: Blood Urea Nitrogen 12 mg/dl (9-20); Estimated Glomerular Filt Rate 81 ml/min (>60); GFR (African American) 98 ML/MIN (>60)
== END ==
PROVIDERS: PCP Family Medicine; Visit Provider Physician Assistant
DX: E11.9 Type 2 diabetes mellitus without complications (principal); G45.9 Transient cerebral ischemic attack, unspecified; I10 Essential (primary) hypertension; I25.10 Atherosclerotic heart disease of native coronary artery without angina pectoris; I45.5 Other specified heart block; I48.91 Unspecified atrial fibrillation; J44.9 Chronic obstructive pulmonary disease, unspecified; R06.00 Dyspnea, unspecified; R42 Dizziness and giddiness; R60.9 Edema, unspecified; Z95.0 Presence of cardiac pacemaker; Z79.84 Long term (current) use of oral hypoglycemic drugs
CPT/HCPCS: 36415; 75635; 82565; 84520; Q9967

== ENCOUNTER 2022-01-27 12:24 | Outpatient (CLI) | payer MEDICARE, OTHER, SELFPAY ==
[2022-01-27 13:23] VITALS: BP 130/72; PULSE 72; RESP 16; TEMP 36.4; O2SAT 97
[2022-01-27 13:45] VITALS: BP 152/78; PULSE 76; RESP 18; O2SAT 98
[2022-01-27 14:15] VITALS: BP 142/79; PULSE 82; RESP 16; TEMP 36.6; O2SAT 99
[2022-01-27 14:45] VITALS: BP 158/69; PULSE 79; RESP 18; O2SAT 99
[2022-01-27 15:15] VITALS: BP 168/82; PULSE 81; RESP 16; O2SAT 98
[2022-01-27 15:31] VITALS: BP 148/72; PULSE 76; RESP 16; TEMP 36.6; O2SAT 99
== END 2022-01-27 15:35 | disposition home or self-care (01) ==
LOC: INF 12:25
PROVIDERS: PCP Family Medicine; Visit Provider Family Medicine
DX: E86.0 Dehydration (principal)
CPT/HCPCS: 96360; 96361

== ENCOUNTER → 2022-07-04 11:45 | Outpatient (CLI) | payer MEDICARE, OTHER, SELFPAY ==
--- NOTE | 2022-07-04 11:45 | NM_ITS ---
APPROVED REPORT Exam: Nuclear Stress Test Indication: Chest pain, HTN, CAD, Hx of [place], Family history Patient Location: Outpatient Stress Tech: Clarice Marie MD Tech:Mariella Cobb, ARRT, RT (R)(N) Ht: 5 ft 6 in Wt: 170 lbs HR: 70 bpm BP: 140/67 mmHg BSA: 1.87 m2 TID: 1.09 BMI: 27.4 History: Chest pain, HTN, CAD, Hx of [place], Family history Exam was started on 07/04/22 and was finished (stress portion) on 07/11/22 due to patients blood pressure being to high on the first attempt to complete exam. Procedure: Patient received a 0.4 mg of intravenous Lexiscan, resting heart rate 70 bpm, resting blood pressure 140/67 mmHg, with Lexiscan maximum heart rate achived was 74 bpm which is Less than 85 % of the maximum predicted heart rate and blood pressure was 140/67 mmHg. With Lexiscan, patient denied any complaint of chest pain. Electrocardiogram Sting electrocardiogram showed rhythm is probably sinus rhythm, intraventricular conduction delay, with Lexiscan there is less than 1.[address] segment depression noted from the baseline EKG. The EKG portion of the Lexiscan is nondiagnostic. Cardiac Stress and Resting SPECT Images: Cardiac Stress and Resting SPECT images were obtained using technetium 99m Myoview 31.7 mCi stress and 10.03 mCi at rest. Patient was unable to lay on stomach for prone images. The submitted myocardial perfusion imaging is not interpretable, a repeat study with better technique is recommended. Conclusion: 1. Noninterpretable myocardial perfusion imaging, if clinically indicated a repeat study with better technique is recommended. Electronically signed by : Carlos Fraga MD 07/11/2022 13:08:09
== END ==
PROVIDERS: PCP Family Medicine; Visit Provider Physician Assistant
DX: R07.9 Chest pain, unspecified (principal)
CPT/HCPCS: 78452

== ENCOUNTER → 2022-07-11 08:49 | Outpatient (CLI) | payer MEDICARE, OTHER, SELFPAY ==
--- NOTE | 2022-07-11 | NM_ITS ---
APPROVED REPORT Exam: Nuclear Stress Test Indication: Chest pain, HTN, Family history, CAD, Hx of [place] Patient Location: Outpatient Stress Tech: Clarice Marie AR Tech:Mariella Cobb, ARRT, RT (R)(N) Ht: 5 ft 6 in Wt: 170 lbs HR: 70 bpm BP: 140/67 mmHg BSA: 1.87 m2 TID: 1.09 BMI: 27.4 History: Chest pain, HTN, Family history, CAD, Hx of [place] Procedure: Patient received a 0.4 mg of intravenous Lexiscan, resting heart rate 70 bpm, resting blood pressure 140/67 mmHg, with Lexiscan maximum heart rate achived was 74 bpm which is Less than 85 % of the maximum predicted heart rate and blood pressure was 140/67 mmHg. With Lexiscan, patient denied any complaint of chest pain. Electrocardiogram Resting electrocardiogram shows electronically paced rhythm, with Lexiscan there is less than 1.[address] segment depression noted from the baseline EKG. The EKG portion of the Lexiscan is nondiagnostic. Cardiac Stress and Resting SPECT Images: Cardiac Stress and Resting SPECT images were obtained using technetium 99m Myoview 31.7 mCi stress and 10.03 mCi at rest. Patient was not able to lay on his stomach for prone images. Gated SPECT for analysis of segmental wall motion and calculation of the ejection fraction also done. Cardiac stress and rest SPECT images show reversible ischemia involving the apex and anteroseptal wall, computer derived ejection fraction is 51% with no regional wall motion abnormality, right ventricle is normal size and contractility. Conclusion: 1. The EKG portion of the Lexiscan is nondiagnostic. 2. Scintigraphic evidence of reversible ischemia involving the apex and anteroseptal wall, computer derived ejection fraction is 51% with no regional wall motion abnormality, right ventricle is normal size and contractility. 3. Abnormal Lexiscan Myoview study. Electronically signed by : Carlos Fraga MD 07/12/2022 19:34:01
--- NOTE | 2022-07-11 09:20 | HMH.ITSHM ---
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 []TAMSULOSIN NITRO METFORMIN LISINOPRIL LEVOFLOXACIN GABAPENTIN FUROSEMIDE IRON FAMOTIDINE CLOPIDOGREL CARVEDILOL ATORVASTATIN APIXABAN AMLODIPINE ALBUTEROL
--- NOTE | 2022-07-11 09:29 | CA_ITS ---
APPROVED REPORT Exam: Pharmacologic Technologist: Clarice Condon, Ht: 5 ft 4 in Wt: 153 lbs BSA: 1.75 m2 HR: 71 bpm BP: 140/67 mmHg Medical History Medications: Amlodipine,,,,, Lisinopril,,,,, Metformin,,,,, Gabapentin,,,,, Atorvastatin,,,,, Carvedilol,,,,, Lasix,,,,, TAMSULOSIN,,,,, Albuterol,,,,, Plavix,,,,, ElIQUIS,,,,, Stress Test Details Test: LEXISCPIEREC Reason for pharmacologic stress test: physical limitation. HR Resting HR: 70 bpm Max Heart Rate (APMHR): 138.548662 bpm Max HR Achieved: 74 bpm Target HR (85% APMHR): 117.532608 bpm % of APMHR: 53.62 Recovery HR: 70 bpm BP Resting BP: 140/67 mmHg Max BP: 140/67 mmHg Recovery BP: 107.0/49.0 mmHg ECG Clinical Exercise duration: 04:00 min Highest Stage Achieved: Exercise capacity: 1.0 METs Stress ECG Conclusion Symptoms: SOA Arrhythmias/Ectopy: Freq PAC/PVC ST-T Changes: <1.5mm Test Summary REST . . . . . . . Resting REST 06:23 . . 70 . 140/ 67 . . Stage 1 01:00 . . 72 . . . . Stage 2 01:00 . . 71 . . . . Stage 3 01:00 . . 70 . 107/ 43 . . Stage 4 01:00 . . 70 . 109/ 47 . Stop exercise at 04:00 RECOVERY 01:00 . . 70 . 107/ 49 . . RECOVERY 02:00 . . 70 . 107/ 49 . . RECOVERY 02:16 . . 70 . 107/ 49 . . Electronically signed by : Carlos Fraga MD 07/11/2022 13:05:24
== END ==
PROVIDERS: PCP Family Medicine; Visit Provider Physician Assistant
DX: R07.89 Other chest pain (principal); R94.30 Abnormal result of cardiovascular function study, unspecified; I25.119 Atherosclerotic heart disease of native coronary artery with unspecified angina pectoris; I50.32 Chronic diastolic (congestive) heart failure; J44.1 Chronic obstructive pulmonary disease with (acute) exacerbation
CPT/HCPCS: 78452; 93017; A9502; J2785

== ENCOUNTER 2022-07-27 08:49 | Day surgery (SDC) | payer MEDICARE, OTHER, SELFPAY ==
[2022-07-27] VITALS (13 sets, daily range): BP systolic 127–203; BP diastolic 73–113; PULSE 70–73; RESP 16–18; O2SAT 93–99; BMI 25.3
--- NOTE | 2022-07-27 07:15 | IR_ITS ---
APPROVED REPORT Patient Location: Outpatient PROCEDURES Selective coronary angiogram Intravascular ultrasound of the left main artery Intravascular ultrasound of the right coronary INDICATION Coronary artery disease, Angiographic ambiguity involving the extent of coronary artery disease, History of coronary stents, Atypical angina pectoris Informed consent was obtained prior to the procedure. COMPLICATIONS None Estimated Blood Loss: Less than 10 mls TECHNIQUE One percent lidocaine used to anesthetize the right anterior aspect of the wrist. The right radial artery was accessed via the Seldinger technique. A 6 Russian sheath was placed in the right radial artery. 2.5 mg of verapamil, 800 mcg of nitroglycerin, 1mg Lidocaine and 5000 U Heparin were given through the arterial sheath. The papa catheter was also used to perform selective coronary angiogram. At the end of the diagnostic angiogram there was a question as to whether the ostial right coronary was patent as well as the proximal left main artery. The guide catheter was placed in left main artery and therapeutic heparin giving a therapeutic ACT was achieved. A Choice PT extra-support wire was placed in the circumflex artery and intravascular ultrasound probe was advanced. The MLA in the left main artery exceeded 6.5 mm??? therefore this was not hemodynamically significant lesion and the apparatus was removed. This procedure was repeated at the right coronary artery with the MLA also exceeding 6.5 mm??? in the ostium of the right coronary artery. Because of the wide patency the apparatus was removed the sheath was removed and hemostasis was achieved using TR banding patient is transferred to the postop putting in stable condition ANGIOGRAPHIC RESULTS The left main artery Has a proximal 30% stenosis The left anterior descending artery Has a stent in the proximal segment which is widely patent free of in-stent restenosis with excellent proximal distal transitioning. The remaining LAD has mild 10 to 20% stenoses The circumflex artery Is a nondominant yet still large vessel with mild 20 to 30% stenoses in the large first obtuse marginal artery The right coronary artery Is a dominant vessel and has a stent in the ostial segment which is widely patent with excellent stent apposition. Distal to the stent is a 20% stenosis followed by 30 to 40% proximal stenosis. There is vascular ectasia in the mid and distal segment. The posterior descending artery and posterior lateral branch are widely patent. A large widely patent stent in the posterior lateral branch has excellent proximal distal transitioning The HYATT ventriculogram reveals Not performed The left ventricular end-diastolic pressure Not measured IMPRESSION Patent coronary arteries as described above PLAN 1. Continue medical management with risk factor modification. 2. Patient's atypical chest pain is noncardiac in etiology 3. Recommend an echocardiogram to determine if ejection fraction is less than 50%. Also recommend performing interrogation on the pacemaker. If patient is RV pacing greater than 40% of the time with an ejection fraction of 50% or less and he is a candidate for upgrading to cardiac resynchronization therapy 4. We will see patient back in clinic in 1 to 2 weeks to determine if biventricular pacemaker therapy is appropriate and indicated Electronically signed by : Emery Odom MD 07/27/2022 15:04:28
[2022-07-27 09:12] LABS: Basophils % 0.5 % (0.1-2.0); Eosinophils # 0.2 K/mm3 (0.0-0.4); Eosinophils % 3.2 % (0.1-12.0); Hematocrit 39.7 % (42.0-52.0); Lymphocytes # 1.6 K/mm3 (0.7-4.5); Lymphocytes % 25.7 % (10-50); Mean Corpuscular HGB Conc 32.6 g/dL (31.8-35.4); Mean Corpuscular Hemoglobin 30.2 pg (27.0-31.2); Mean Corpuscular Volume 92.6 fl (80-94); Mean Platelet Volume 9.8 fl (7.4-10.4); Monocytes # 0.6 K/mm3 (0.1-1.0); Monocytes % 9.8 % (1.7-9.3); Neutrophils # 3.6 K/mm3 (1.8-7.8); Neutrophils % 60.7 % (37.0-80.0); Platelet Count 158 K/mm3 (142-424); Red Blood Count 4.29 M/mm3 (4.60-6.20); Red Cell Distribution Width 15.4 % (11.5-17.5)
[2022-07-27 09:31] LABS: Anion Gap 13.3 mEq/L (5-15); Blood Urea Nitrogen 26 mg/dl (9-20); Calcium 9.5 mg/dl (8.4-10.2); Carbon Dioxide 27 mmol/L (22.0-30.0); Chloride 107 mmol/L (98-107); Creatinine Clearance Estimated 48 mL/min (50-200); Estimated Glomerular Filt Rate 58 ml/min (>60); GFR (African American) 70 ML/MIN (>60); Glucose 138 mg/dl (74-100); Potassium 4.3 mmoL/L (3.5-5.1); Sodium 143 mmol/L (136-145)
== END 2022-07-27 13:23 | disposition home or self-care (01) ==
PROVIDERS: Nurse Practitioner; PCP Family Medicine; Visit Provider Internal Medicine
DX: I25.118 Atherosclerotic heart disease of native coronary artery with other forms of angina pectoris (principal); I50.32 Chronic diastolic (congestive) heart failure; J44.1 Chronic obstructive pulmonary disease with (acute) exacerbation; R07.89 Other chest pain; R94.30 Abnormal result of cardiovascular function study, unspecified; Z79.01 Long term (current) use 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s; Z79.4 Long term (current) use of insulin; I70.1 Atherosclerosis of renal artery; Z95.5 Presence of coronary angioplasty implant and graft; I11.0 Hypertensive heart disease with heart failure
CPT/HCPCS: 36415; 80048; 85025; 92978; 92979; 93454; 99152; C1725; C1769; J1644; Q9967

== ENCOUNTER → 2022-08-09 08:54 | Outpatient (CLI) | payer MEDICARE, OTHER, SELFPAY ==
--- NOTE | 2022-08-09 08:57 | CA_ITS ---
APPROVED REPORT EXAM: Comprehensive 2D, Doppler, and color-flow Echocardiogram Supervisor Pipeline Maintenance: Zenia Bello RVT Ht: 5 ft 6 in Wt: 157lbs BSA: 1.80 BP: 141/71 mmHg Indications: SOA,DIZZINESS,CAD,HX TIA,PACER,SSS,HOME O2,CHF 2D Dimensions LVOT 2.15 cm (M/F) 1.5-2.5 LA Volume 66.00 mL LA Volume Index 36.46 mL/m2 (M/F) 16-34 M-Mode Dimensions RVDd 2.37 cm (0.9-2.6) LA Diam 4.58 cm (1.9-4.0) LVDd 4.53 cm (3.5-5.7) Ao Diam 3.05 cm (2.0-3.7) LVDs 2.90 cm (3.5-5.7) IVSd 1.49 cm (0.6-1.1) PWd 0.82 cm (0.6-1.1) EF (Teich) 65.70% FS 36.00% EDV (Teich) 93.90 mL TAPSE 1.72 (<1.7) ESV (Teich) 32.20 mL LV Diastology E Decel Time 193.00 (160-240 msec) E/A Ratio 4.0 MED E' 8.30 (< 7 cm/sec) E'/MED E' Ratio 14.77 (>14) LAT E' 11.60 (<10 cm/sec) E/LAT E' Ratio 10.57 (>14) Aortic Valve LVOT Max 61.00 (70-110 cm/s) LVOT VTI 13.32 cm AoV Peak Chris. 127.00 (50-130 cm/s) AO Peak GR. 6.40 mmHg AO Mean GR. 3.30 (<5 mmHg) AO VTI 29.64 (18-25 cm) LAUREN (VTI) 1.63 (2.5-4.5 cm2) Mitral Valve MV E Max Chris. 123.00 (40-130 cm/s) MV A Velocity 31.00 (40-130 cm/s) E/A Ratio 3.94 MV Decel. Time 193.00 (160-240 ms) MV Mean Gr. 2.00 (<2mmHg) MV PHT 57.00 ms Pulmonary Valve PV Peak Velocity 84.00 (50-150 cm/s) Tricuspid Valve TR P. Velocity 343.00 cm/s RAP Estimate 10.00 mmHg RVSP 56.90 mmHg Left Ventricle Left atrium is mildly enlarged, left ventricle is normal size mild concentric left ventricular hypertrophy, estimated ejection fraction 55% with no regional wall motion abnormality. Diastolic parameters are inconclusive. Right Ventricle Right atrium and right ventricle mildly enlarged with normal contractility, pacemaker leads in the right ventricle. Aortic Valve Aortic valve is thickened and calcified without Doppler evidence of aortic stenosis or aortic insufficiency. Mitral Valve Mitral valve is minimally thickened, there is mild mitral regurgitation. Tricuspid Valve Tricuspid valve is grossly normal, there is mild tricuspid regurgitation, tricuspid regurgitation jet velocity is inadequate for calculation of the right ventricular systolic pressure. Pulmonic Valve Pulmonic valve is poorly visualized. Great Vessels Aortic root is normal size. Inferior vena cava is normal size with normal inspiratory collapse. Pericardium No significant pericardial effusion noted. Conclusion 1. Biatrial enlargement, normal left ventricular size mild concentric left ventricular hypertrophy, estimated ejection fraction 55% with no regional wall motion abnormality, diastolic parameters are inconclusive. 2. Mildly enlarged right ventricle with normal contractility. 3. Mild mitral and tricuspid regurgitation. 4. No significant pericardial effusion. 5. Inferior vena cava is normal size with normal inspiratory collapse. Electronically signed by : Carlos Fraga MD 08/10/2022 12:10:10
== END ==
PROVIDERS: PCP Family Medicine; Visit Provider Nurse Practitioner Family
DX: I50.32 Chronic diastolic (congestive) heart failure (principal)
CPT/HCPCS: 93306

== ENCOUNTER 2023-02-08 11:56 | Emergency (ER) | payer MEDICARE, OTHER, SELFPAY ==
[2023-02-08] VITALS (8 sets, daily range): BP systolic 159–194; BP diastolic 74–97; PULSE 68–72; RESP 17–18; TEMP 36.6; O2SAT 94–100; BMI 26.6
--- NOTE | 2023-02-08 11:55 | ECG_ITS ---
APPROVED REPORT Exam: Resting ECG HR:70 bpm ECG Measurements Heart Rate 70 AXES QRSd 149 QRS 262 QT 455 T 81 QTc 475 Conclusion ELECTRONIC VENTRICULAR PACEMAKER ABNORMAL RHYTHM ECG UNCONFIRMED REPORT Electronically signed by : Rikki Stewart MD 02/09/2023 21:37:02
[2023-02-08 12:17] LABS: Basophils # 0.1 K/mm3 (0-0.2); Basophils % 0.5 % (0.1-2.0); Eosinophils # 0.2 K/mm3 (0.0-0.4); Eosinophils % 2.4 % (0.1-12.0); Hematocrit 42.2 % (42.0-52.0); Hemoglobin 13.3 g/dL (14.1-18.0); Lymphocytes # 2.6 K/mm3 (0.7-4.5); Lymphocytes % 27.1 % (10-50); Mean Corpuscular HGB Conc 31.5 g/dL (31.8-35.4); Mean Corpuscular Hemoglobin 29.3 pg (27.0-31.2); Mean Platelet Volume 10.1 fl (7.4-10.4); Monocytes # 0.8 K/mm3 (0.1-1.0); Monocytes % 8.2 % (1.7-9.3); Neutrophils % 61.8 % (37.0-80.0); Platelet Count 180 K/mm3 (142-424); Red Blood Count 4.54 M/mm3 (4.60-6.20); Red Cell Distribution Width 15.4 % (11.5-17.5); White Blood Count 9.7 K/mm3 (4.8-10.8)
--- NOTE | 2023-02-08 12:20 | XR_ITS ---
FINAL REPORT CLINICAL HISTORY: Precordial chest pain COMPARISON: 11/06/2021 FINDINGS: A single portable view of the chest was obtained. Cardiomegaly. There is mild pulmonary vascular congestion. Left subclavian pacer is present. The mediastinum is within normal limits. There is mild atelectasis or scar in the right lung base. The bony thorax is intact. IMPRESSION: Mild atelectasis or scar right lung base. Cardiomegaly and pulmonary vascular congestion Reviewed, Interpreted and Dictated by Chuy العراقي III, MD Transcribed by Shari Brush Authenticated and . [facility]
[2023-02-08 12:37] LABS: Troponin I < 0.01 ng/ml (0.00-0.034)
[2023-02-08 13:25] LABS: Alanine Aminotransferase 23 U/L (12-78); Albumin Level 4.6 g/dl (3.5-5.0); Albumin/Globulin Ratio 1.4 (1.1-1.8); Alkaline Phosphatase 83 U/L (38-126); Anion Gap 12.2 mEq/L (5-15); Aspartate Amino Transferase 29 U/L (17-59); Bilirubin,Total 1.8 mg/dl (0.2-1.3); Blood Urea Nitrogen 25 mg/dl (9-20); Calcium 9.3 mg/dl (8.4-10.2); Carbon Dioxide 30 mmol/L (22.0-30.0); Chloride 103 mmol/L (98-107); Creatinine Clearance Estimated 44 mL/min (50-200); Estimated Glomerular Filt Rate 48 ml/min (>60); GFR (African American) 59 ML/MIN (>60); Globulin 3.3 g/dL (1.3-3.2); Glucose 98 mg/dl (74-100); Potassium 4.2 mmoL/L (3.5-5.1); Sodium 141 mmol/L (136-145); Total Protein,Serum 7.9 g/dl (6.3-8.2)
--- NOTE | 2023-02-08 14:58 | HMH.EDGENADL ---
Discharge Plan Disposition Patient Disposition: Home, Self-Care Condition: Good Chief Complaint: Chest Pain Prescriptions Prescriptions: No Action apixaban [Eliquis] 5 mg tablet 5 mg PO BID albuterol sulfate [ProAir HFA] 90 mcg/actuation HFA aerosol inhaler 2 puff IH QIDP PRN (Reason: Shortness Of Breath) nitroglycerin 0.4 mg tablet, sublingual 0.4 mg sublingual Q5M PRN (Reason: chest pain) Qty: 20 0RF Rx Instructions: do not exceed 3 doses per episode lisinopril 20 mg tablet 20 mg PO BID ferrous sulfate 325 mg (65 mg iron) tablet 325 mg PO BID carvedilol 12.5 mg tablet 12.5 mg PO BID amlodipine 2.5 mg tablet See Rx Instructions .ROUTE .COMPLEX Qty: 30 5RF Dose Instruction: TAKE ONE TABLET BY MOUTH EVERY DAY Rx Instructions: TAKE ONE TABLET BY MOUTH EVERY DAY clopidogrel 75 mg tablet See Rx Instructions .ROUTE .COMPLEX Qty: 90 5RF Dose Instruction: TAKE ONE TABLET BY MOUTH EVERY DAY Rx Instructions: TAKE ONE TABLET BY MOUTH EVERY DAY metformin 500 MG tablet extended release 24 hr 500 mg PO BID famotidine 40 MG tablet 40 mg PO HS atorvastatin 80 MG tablet 80 mg PO HS tamsulosin 0.4 MG capsule 0.4 mg PO BID gabapentin 300 mg capsule 300 mg PO BID qtqbythzcyo-adlycsxiw-ublucajb 1 EACH blister with device 1 puff IH DAILY furosemide 20 MG tablet 20 mg PO DAILY Referrals Follow up/Referrals: Colby Quan MD [Primary Care Provider] - See instructions Activity Restrictions/Add. Instructions Additional Instructions/Restrictions: Home medication as directed. Follow-up PCP in 1 to 2 days. Return to the ER for worsening Clinical Impressions Clinical Impression: Atypical chest pain Discharge ED Provider: Tommie Govea General Adult HPI General Chief complaint: Chest Pain Stated complaint: chest pain Time Seen by Provider: 02/08/23 12:05 Mode of Arrival: Ambulatory Source of Information: Patient Limitations: No Limitations Description of Symptoms (Recalled from ER Triage Doc. by RN): pt to the ED with left anterior chest pain and dizziness x 1 hour. pt describes his pain as a dull aching pain that radiates down his left arm. pt has a history of a stent in the past History of Present Illness HPI narrative: 82yo M presents to the ER secondary to chest pain and left arm pain. Symptoms began last night. History of CAD status post 1 stent placed at a hospital in [place]. Also has multiple stents in his lower extremities. Patient reports he is feeling somewhat better at this time. Denies shortness of breath, nausea, diaphoresis. Related Data Home Medications Medication Instructions Recorded Confirmed atorvastatin 80 mg tablet 80 mg PO HS Cholesterol 09/10/17 11/23/22 tamsulosin 0.4 mg capsule 0.4 mg PO BID Prostate 09/10/17 11/23/22 lisinopril 20 mg tablet 20 mg PO BID High blood pressure 12/19/17 11/23/22 apixaban 5 mg tablet (Eliquis) 5 mg PO BID Blood thinner 01/29/18 11/23/22 albuterol sulfate 90 mcg/actuation 2 puff inhalation QIDP PRN 03/26/18 11/23/22 aerosol inhaler (ProAir HFA) Shortness Of Breath gabapentin 300 mg capsule 300 mg PO BID Pain 01/20/20 11/23/22 fluticasone fur. 100 mcg-umeclid 1 puff inhalation DAILY Breathing 05/15/20 11/23/22 62.5 mcg-vilant 25 mcg problems inhalat.powder famotidine 40 mg tablet 40 mg PO HS Acid reflux 11/29/20 11/23/22 metformin 500 mg tablet,extended 500 mg PO BID Diabetes 11/29/20 11/23/22 release 24 hr furosemide 20 mg tablet 20 mg PO DAILY Fluid 07/13/21 11/23/22 carvedilol 12.5 mg tablet 12.5 mg PO BID blood pressure 08/03/21 11/23/22 ferrous sulfate 325 mg (65 mg 325 mg PO BID Supplement 11/26/21 11/23/22 iron) tablet Previous Rx's Medication Instructions Recorded nitroglycerin 0.4 mg sublingual 0.4 mg sublingual Q5M PRN chest 06/13/22 tablet pain #20 tabs amlodipine 2.5 mg tablet See Rx Instructions .Route
[2023-02-08 16:09] LABS: Troponin I < 0.01 ng/ml (0.00-0.034)
== END 2023-02-08 16:15 | disposition home or self-care (01) ==
PROVIDERS: Emergency Provider Family Medicine; PCP Family Medicine
DX: R07.89 Other chest pain (principal); R42 Dizziness and giddiness; M79.602 Pain in left arm; I25.10 Atherosclerotic heart disease of native coronary artery without angina pectoris; I11.0 Hypertensive heart disease with heart failure; I50.9 Heart failure, unspecified; J44.9 Chronic obstructive pulmonary disease, unspecified; E78.5 Hyperlipidemia, unspecified; I70.1 Atherosclerosis of renal artery
CPT/HCPCS: 36415; 71045; 80053; 84484; 85025; 93005; 99285

== ENCOUNTER 2023-05-07 10:28 | Emergency (ER) | payer MEDICARE, OTHER, SELFPAY ==
[2023-05-07 10:29] VITALS: BP 147/67; PULSE 67; RESP 18; TEMP 36.6; O2SAT 100; BMI 26.6
[2023-05-07 10:38] VITALS: BP 147/67; PULSE 65; RESP 18; O2SAT 99
--- NOTE | 2023-05-07 10:40 | HMH.EDGENADL ---
Discharge Plan Disposition Patient Disposition: Home, Self-Care Condition: Good Prescriptions Prescriptions: No Action apixaban [Eliquis] 5 mg tablet 5 mg PO BID albuterol sulfate [ProAir HFA] 90 mcg/actuation HFA aerosol inhaler 2 puff IH QIDP PRN (Reason: Shortness Of Breath) nitroglycerin 0.4 mg tablet, sublingual 0.4 mg sublingual Q5M PRN (Reason: chest pain) Qty: 20 0RF Rx Instructions: do not exceed 3 doses per episode lisinopril 20 mg tablet 20 mg PO BID carvedilol 12.5 mg tablet 12.5 mg PO BID clopidogrel 75 mg tablet See Rx Instructions .ROUTE .COMPLEX Qty: 90 5RF Dose Instruction: TAKE ONE TABLET BY MOUTH EVERY DAY Rx Instructions: TAKE ONE TABLET BY MOUTH EVERY DAY amlodipine 2.5 mg tablet See Rx Instructions .ROUTE .COMPLEX Qty: 30 5RF Dose Instruction: TAKE ONE TABLET BY MOUTH EVERY DAY Rx Instructions: TAKE ONE TABLET BY MOUTH EVERY DAY metformin 500 MG tablet extended release 24 hr 500 mg PO BID ferrous sulfate [FeroSul] 325 mg (65 mg iron) tablet 325 mg PO TID famotidine 40 mg tablet 40 mg PO HS Patient Comments: TAKE ONE TABLET BY MOUTH EVERY DAY AT BEDTIME atorvastatin 80 MG tablet 80 mg PO HS tamsulosin 0.4 MG capsule 0.4 mg PO BID gabapentin 300 mg capsule 300 mg PO BID guisfjmjeyw-klgixibrh-yjtiinjy 1 EACH blister with device 1 puff IH DAILY Referrals Follow up/Referrals: Colby Quan MD [Primary Care Provider] - See instructions Activity Restrictions/Add. Instructions Additional Instructions/Restrictions: As discussed, you will be called to make an appointment with the urologist in clinic on . Please do not take your blood thinner called Eliquis or apixaban in the meantime. Please drink plenty of fluids. Please return if you feel symptomatic such as lightheadedness, weakness, passing out, or difficulty urinating. Clinical Impressions Clinical Impression: Hematuria Qualifiers: Hematuria type: gross Qualified Code(s): R31.0 - Gross hematuria Instructions Patient Instructions: DI for Urinary Tract Infection (UTI), DI for Urinary Tract Infection in Children Discharge ED Provider: Wali Acevedo Adult [facility] General Chief complaint: Urogenital-Male Stated complaint: urinating blood Time Seen by Provider: 05/07/23 10:33 History of Present Illness HPI narrative: The patient presents with a chief complaint of back pain and bloody urine. The back pain started recently and is described as burning in nature. He reports that the pain is located in the back, without specifying a particular side or the middle. The bloody urine is described as being present throughout the urine, with no prior history of kidney stones. The patient has a history of kidney failure and has a stent in the kidney. He is currently on Eliquis, a blood thinner, due to multiple stents in his heart and legs. The patient has been experiencing dizzy spells recently and admits to not staying well-hydrated by not drinking enough liquids. He reports pain in his back and side, but is unable to specify the location or whether it is a new symptom. He denies any abdominal pain or lightheadedness during the visit. Related Data Home Medications Medication Instructions Recorded Confirmed atorvastatin 80 mg tablet 80 mg PO HS Cholesterol 09/10/17 05/07/23 tamsulosin 0.4 mg capsule 0.4 mg PO BID Prostate 09/10/17 05/07/23 lisinopril 20 mg tablet 20 mg PO BID High blood pressure 12/19/17 05/07/23 apixaban 5 mg tablet (Eliquis) 5 mg PO BID Blood thinner 01/29/18 05/07/23 albuterol sulfate 90 mcg/actuation 2 puff inhalation QIDP PRN 03/26/18 02/22/23 aerosol inhaler (ProAir HFA) Shortness Of Breath gabapentin 300 mg capsule 300 mg PO BID Pain 01/20/20 05/07/23 fluticasone fur. 100 mcg-umeclid 1 puff inhalation DAILY Breathing 05/15/20 02/22/23 62.5 mcg-vilant 25 mcg problems inhalat.powder
[2023-05-07 10:53] LABS: Microscopic, Urine URINE MICROSCOPIC (MICROSCOPIC)
--- NOTE | 2023-05-07 10:55 | PC.NURSE ---
Dr. Acevedo at [facility] for pt eval
--- NOTE | 2023-05-07 10:57 | CT_ITS ---
PROCEDURE INFORMATION: Exam: CTA Abdomen and Pelvis With Contrast Exam date and time: 05/07/2023 11:23 AM Age: 82 years old Clinical indication: Abdominal pain; Flank; Left lower quadrant (llq); Additional info: Hematuria, L flank pain TECHNIQUE: Imaging protocol: Computed tomographic angiography of the abdomen and pelvis with contrast. Exam focused on the arteries. 3D rendering (Not supervised by radiologist): MIP and/or 3D reconstructed images were created by the technologist. Radiation optimization: All CT scans at this facility use at least one of these dose optimization techniques: automated exposure control; mA and/or kV adjustment per patient size (includes targeted exams where dose is matched to clinical indication); or iterative reconstruction. Contrast material: ISOVUE 370; Contrast volume: 100 ml; Contrast route: INTRAVENOUS (IV); REPORTING DATA: Count of CT and Cardiac NM exams in prior 12 months: This patient has received 0 known CTs and 0 known cardiac nuclear medicine studies in the 12 months prior to the current study. COMPARISON: CT ANGIO ABDOMEN/FEMORAL 12/22/2021 8:43 AM FINDINGS: Lungs: [place] dependent ground-glass interstitial change is noted at the lung bases. Aorta: No aortic aneurysm. No aortic dissection. Celiac trunk and mesenteric arteries: There is atheromatous calcific plaque in the proximal superior mesenteric artery and a small non obstructing short segment dissection flap. The superior mesenteric artery is otherwise widely patent. Renal arteries: Accessory renal arteries are noted with medialized origins along the anterior aspect of the atheromatous abdominal aorta. Right iliac arteries: No occlusion or significant stenosis. Left iliac arteries: No occlusion or significant stenosis. Other arteries: The patient has undergone aortoiliac bypass as well as kissing stents within the [place] common iliac arteries. The right-sided common iliac stent is patent. The left common iliac stent is occluded. The bypass graft is patent. An occluded femorofemoral bypass graft is noted. Liver: There is a 9 mm hypervascular lesion of the right hepatic dome and an 8 mm lesion at the left hepatic dome. Please correlate with MRI of the abdomen with and without intravenous contrast. Gallbladder and bile ducts: Surgical clips are noted in the gallbladder fossa compatible with prior cholecystectomy. Pancreas: Unremarkable. No mass. No ductal dilation. Spleen: Unremarkable. No splenomegaly. Adrenal glands: Unremarkable. No mass. Kidneys and ureters: The kidneys enhance symmetrically and there is no hydronephrosis. Multifocal renal cortical scarring is present. A 15 mm cyst with a tiny enhancing posterior mural nodule is noted in the posteromedial left renal midportion. Other subcentimeter cortical cysts are too small to accurately characterize measuring up to 9 mm in the posterior left midportion and 8 mm in the lateral right midportion. Stomach and bowel: Colonic diverticulosis is noted. Appendix: No evidence of appendicitis. Intraperitoneal space: Unremarkable. No free air. No significant fluid collection. Lymph nodes: Unremarkable. No enlarged lymph nodes. Urinary bladder: There is suggestion of faint blush in the left base of bladder. The urinary bladder is contracted, relatively thick-walled. Reproductive: Prostate is enlarged, measuring 4.1 x 5.5 x 4.6 cm with coarse calcification. Bones/joints: Degenerative changes are noted in the bones with mild wedge compression of T11 unchanged. Soft tissues: There is a broad-based nonobstructing midline umbilical and supraumbilical ventral midline hernia.. Other findings: There is questionable hypodense fullness at the level of the duodenal ampulla measuring 1
[2023-05-07 11:00] LABS: Appearance,Urine TURBID (Clear); Blood, Urine 3+ (Negative); Color,Urine RED (Yellow); Glucose,Urine (UA) TRACE (Negative); Ketones,Urine TRACE (Negative); Leukocyte Esterase,Urine Negative (Negative); Nitrate,Urine Negative (Negative); PH,Urine 6.5 (5.0-8.5); Protein,Urine 3+ (Negative); Specific Gravity, Urine 1.025 (1.005-1.030)
[2023-05-07 11:02] LABS: Basophils % 0.3 % (0.1-2.0); Eosinophils # 0.2 K/mm3 (0.0-0.4); Eosinophils % 1.7 % (0.1-12.0); Hematocrit 39.4 % (42.0-52.0); Hemoglobin 12.5 g/dL (14.1-18.0); Lymphocytes # 1.7 K/mm3 (0.7-4.5); Lymphocytes % 16.8 % (10-50); Mean Corpuscular HGB Conc 31.7 g/dL (31.8-35.4); Mean Corpuscular Hemoglobin 29.9 pg (27.0-31.2); Mean Corpuscular Volume 94.3 fl (80-94); Mean Platelet Volume 10.2 fl (7.4-10.4); Monocytes # 0.6 K/mm3 (0.1-1.0); Monocytes % 5.8 % (1.7-9.3); Neutrophils # 7.8 K/mm3 (1.8-7.8); Neutrophils % 75.4 % (37.0-80.0); Platelet Count 184 K/mm3 (142-424); Red Blood Count 4.18 M/mm3 (4.60-6.20); Red Cell Distribution Width 15.3 % (11.5-17.5); White Blood Count 10.3 K/mm3 (4.8-10.8)
[2023-05-07 11:06] LABS: Bacteria,Urine 1+ /lpf; Bilirubin,Urine 1+ (Negative); RBC,Urine TNTC #/hpf (0-3); Squamous Epithelial Cell,Urine Occasional #/hpf (0-5)
[2023-05-07 11:08] LABS: Chloride 103 mmol/L (98-107); Potassium 3.9 mmoL/L (3.5-5.1); Sodium 142 mmol/L (136-145)
[2023-05-07 11:10] LABS: Blood Urea Nitrogen 16 mg/dl (9-20); Creatinine Clearance Estimated 47 mL/min (50-200); Estimated Glomerular Filt Rate 53 ml/min (>60); GFR (African American) 64 ML/MIN (>60)
[2023-05-07 11:11] LABS: Alanine Aminotransferase 21 U/L (12-78); Albumin Level 4.1 g/dl (3.5-5.0); Albumin/Globulin Ratio 1.3 (1.1-1.8); Alkaline Phosphatase 76 U/L (38-126); Anion Gap 13.9 mEq/L (5-15); Aspartate Amino Transferase 23 U/L (17-59); Bilirubin,Total 2.2 mg/dl (0.2-1.3); Calcium 9.1 mg/dl (8.4-10.2); Carbon Dioxide 29 mmol/L (22.0-30.0); Creatine Kinase 108 U/L (55-170); Globulin 3.1 g/dL (1.3-3.2); Glucose 153 mg/dl (74-100); Lipase 74 U/L (23-300); Total Protein,Serum 7.2 g/dl (6.3-8.2)
[2023-05-07 11:19] VITALS: BP 168/66; PULSE 68; RESP 18; O2SAT 100
[2023-05-07 11:36] LABS: Lactic Acid 2.4 mmol/L (0.7-2.1)
--- NOTE | 2023-05-07 11:50 | PC.NURSE ---
Pt returned from RAD
[2023-05-07 12:08] VITALS: BP 159/64; PULSE 68; RESP 16; O2SAT 99
[2023-05-07 12:37] VITALS: BP 173/79; PULSE 74; O2SAT 99
--- NOTE | 2023-05-07 12:47 | PC.NURSE ---
Pt ambulatory to bathroom with use of cane
--- NOTE | 2023-05-07 13:07 | PC.NURSE ---
called [facility] for urology transfer, given number for Dr Bedolla who request MD to call directly,
--- NOTE | 2023-05-07 13:13 | PC.NURSE ---
Dr Acevedo speaking with Dr Bedolla at [facility]
--- NOTE | 2023-05-07 13:20 | PC.NURSE ---
Dr. Acevedo at [facility] to update pt on POC
--- NOTE | 2023-05-07 13:22 | PC.NURSE ---
DR TATUM AT BEDSIDE
[2023-05-07 13:39] VITALS: BP 150/77; PULSE 70; RESP 17; TEMP 36.6; O2SAT 95
[2023-05-07 15:22] LABS: Reflex Lactic Add Lactic Reflex
== END 2023-05-07 13:41 | disposition home or self-care (01) ==
PROVIDERS: Emergency Provider Emergency Medicine; PCP Family Medicine
DX: R31.0 Gross hematuria (principal); M54.9 Dorsalgia, unspecified; R74.02 Elevation of levels of lactic acid dehydrogenase [LDH]; J44.9 Chronic obstructive pulmonary disease, unspecified; I25.10 Atherosclerotic heart disease of native coronary artery without angina pectoris; I11.0 Hypertensive heart disease with heart failure; I50.9 Heart failure, unspecified; E78.5 Hyperlipidemia, unspecified; I70.1 Atherosclerosis of renal artery; I49.5 Sick sinus syndrome; Z95.5 Presence of coronary angioplasty implant and graft; Z79.01 Long term (current) use 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s; Z87.891 Personal history of nicotine dependence
CPT/HCPCS: 74174; 80053; 81001; 82550; 83605; 83690; 85025; 96360; 99284; Q9967

== ENCOUNTER 2024-02-04 13:13 | Inpatient (IN) | payer MEDICARE, OTHER, SELFPAY ==
[2024-02-04] VITALS (24 sets, daily range): BP systolic 119–231; BP diastolic 57–106; PULSE 68–79; RESP 12–24; TEMP 36.4–36.5; O2SAT 94–100; BMI 26.9; BMI 25.3
--- NOTE | 2024-02-04 13:15 | ECG_ITS ---
APPROVED REPORT Exam: Resting ECG HR:70 bpm ECG Measurements Heart Rate 70 AXES QRSd 151 QRS 269 QT 455 T 88 QTc 475 Conclusion ELECTRONIC VENTRICULAR PACEMAKER ABNORMAL RHYTHM ECG Electronically signed by : RADHA RODRIGUEZ, 02/04/2024 23:26:49
--- NOTE | 2024-02-04 13:18 | HMH.EDGENADL ---
Discharge Plan Disposition Patient Disposition: Admitted Condition: Fair Clinical Impressions Clinical Impression: Chest fullness, Pre-syncope, Hypertensive emergency Discharge ED Provider: Wali Acevedo General Adult HPI <Wali Acevedo MD - Last Filed: 02/04/24 15:25> General Chief complaint: Chest Pain Stated complaint: cp Time Seen by Provider: 02/04/24 13:18 History of Present Illness HPI narrative: The patient presents with a chief complaint of elevated blood pressure and chest fullness. The patient's family member reports that his blood pressure was 178/65 after religion today, and he has been experiencing chest fullness without pain. The patient denies any abdominal pain or shortness of breath. No missed doses of medications. His blood pressure before religion was reportedly approximately 210-220 systolic. The patient has a history of hypertension and is currently on Amlodipine 2.5 mg, Carvedilol 3.125 mg, Prasugrel, Eliquis, and Lisinopril 5 mg. The Carvedilol dose was reduced a couple of months ago due to low blood pressure. His blood pressure has been stable since then, with readings around 120/80. He takes medications at 8 o'clock in the morning and 8 o'clock at night. He reports a new sensation of chest fullness that has spread to the left arm. He has a history of a pacemaker and stent placement. He also reports experiencing dizzy spells, particularly when getting out of the car, and feeling lightheaded as if he might pass out. He has had episodes of leg cramping but denies any current leg pain or swelling. He is unsure about his fluid intake but believes he has been drinking enough fluids. Denies any chest pain. Denies any nausea or vomiting, denies any tearing or migrating component to his symptoms in his chest. Please note that above description of symptoms, in this electronic medical record under categorization of recalled from ER triage doctor by RN are reflective of an initial nursing assessment, however, is not reflective of my full history and physical exam that was personally taken and clarified. Consequentially, this preceding description of symptoms, which may include the patient's categorized chief complaint in the EMR, do not reflect my personal clinical impression, and the ultimate description of history of present illness and patient stated complaints should be deferred to this section of the note. Unless stated otherwise or congruent with this section of the note, additional signs, symptoms, or incongruence should be interpreted as inaccurate with my clinical impression. Related Data Home Medications Medication Instructions Recorded Confirmed atorvastatin 80 mg tablet 80 mg PO HS Cholesterol 09/10/17 02/04/24 tamsulosin 0.4 mg capsule 0.8 mg PO DAILY Prostate 09/10/17 02/04/24 apixaban 5 mg tablet (Eliquis) 5 mg PO BID Blood thinner 01/29/18 02/04/24 albuterol sulfate 90 mcg/actuation 2 puff inhalation QIDP PRN 03/26/18 02/04/24 aerosol inhaler (ProAir HFA) Shortness Of Breath gabapentin 300 mg capsule 300 mg PO BID Pain 01/20/20 02/04/24 fluticasone fur. 100 mcg-umeclid 1 puff inhalation DAILY Breathing 05/15/20 02/04/24 62.5 mcg-vilant 25 mcg problems inhalat.powder metformin 500 mg tablet,extended 1,000 mg PO DAILY Diabetes 11/29/20 02/04/24 release 24 hr carvedilol 12.5 mg tablet 12.5 mg PO BID blood pressure 08/03/21 02/04/24 famotidine 40 mg tablet 40 mg PO HS stomach 05/07/23 02/04/24 ferrous sulfate 325 mg (65 mg 325 mg PO DAILY Supplement 05/07/23 02/04/24 iron) tablet (FeroSul) lisinopril 5 mg tablet 5 mg PO DAILY hypertension 08/09/23 02/04/24 omeprazole 20 mg capsule,delayed 20 mg PO DAILY 11/08/23 02/04/24 release amlodipine 2.5 mg tablet 2.5 mg PO DAILY 02/04/24 02/04/24 clopidogrel 75 mg tablet 75 mg PO DAILY 02/04/24 02/04/24 Previous Rx's Medication Instructions Recorded nitroglycerin 0.4 mg sublingual 0.4 mg sublingual Q5M PRN chest 06/13/22 tablet pain #20 tabs Allergies Allergy/AdvReac Type Severity Reaction Status Date / Time Penicillins Allergy Verified 11/08/23 09:16 [facility] <Wali Acevedo MD - Last Filed: 02/04/24 15:25> [facility] Disclaimer: The information contained in this section may have been updated after the patient was seen, as this information can be updated by other users. Medical History (Updated 02/04/24 @ 22:29 by Hema Cary MD) Heart attack History of left heart catheterization (LHC) Diabetes 1.5, managed as type 1 Abnormal result of cardiovascular function study Tachy-gerry syndrome Dizziness Sinus pause alf current use 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 therapy HTN (hypertension) HLD (hyperlipidemia) RHONDA (renal artery stenosis) Dyspnea Edema Congestive heart failure COPD (chronic obstructive pulmonary disease) CAD (coronary artery disease) Surgical History (Updated 02/04/24 @ 20:52 by Quynh Cruz, MARCELLO) History of cholecystectomy History of renal stent Family History (Updated 02/04/24 @ 20:52 by Quynh Cruz RN) Sister Breast cancer Son Diabetes Sister Leukemia Social History (Updated 02/04/24 @ 20:53 by Quynh Cruz RN) Smoking Status: Former smoker tobacco type: cigarettes packs per day: 1 years smoked: 35 second hand exposure: No alcohol intake: never counseling provided: none substance use type: denies use current occupational status: retired Travel in the last 8 weeks: Inside the [place] household members: children housing: house current occupational exposures/hazards: No caffeine: Yes <Wali Acevedo MD - Last Filed: 02/04/24 15:25> ROS Obtained: Yes other As per HPI Physical Exam <Wali Acevedo MD - Last Filed: 02/04/24 15:25> General General appearance: alert and in no apparent distress Head Head exam: atraumatic and normocephalic Eye Eye exam: Present normal appearance Neck Neck exam: Present normal inspection Chest Chest inspection: Present normal inspection and symmetric chest wall rise Respiratory Respiratory exam: Present normal lung sounds bilaterally; Absent respiratory distress Cardiovascular Cardiovascular exam: Present regular rate and normal rhythm Abdominal Exam Abdominal exam: Present soft Neurological Exam Neurological exam: Present alert and oriented X3 Psychiatric Psychiatric exam: Present normal affect and normal mood Skin Skin exam: Present warm and dry Other Other exam information: No chest wall tenderness to palpation, pulses equal and strong in bilateral upper extremities, no external evidence of trauma to head, alert, oriented, lower extremities with brisk capillary refill, no edema, pulses intact. Medical Decision Making <Wali Acevedo MD - Last Filed: 02/04/24 15:25> Medical Records Medical records reviewed: Yes I reviewed the patient's medical records. Han Inquiry Pt receiving controlled substance: No Vital Signs: 02/04/24 13:13 02/04/24 13:14 02/04/24 13:31 Temperature 97.6 F Temperature Source Oral Pulse Rate 70 70 Pulse Rate [Right] 70 Respiratory Rate 18 18 Blood Pressure 157/58 H 181/73 H Blood Pressure [Right Arm] 157/58 H Blood Pressure Mean [Right Arm] 91 Blood Pressure Source Blood Pressure Position 02 Sat by Pulse Oximetry 98 99 99 Oxygen Delivery Method Room Air Room Air 02/04/24 14:00 02/04/24 14:16 02/04/24 14:30 Temperature Temperature Source Pulse Rate 69 68 70 Pulse Rate [Right] Respiratory Rate 13 16 16 Blood Pressure 189/86 H 121/61 136/106 H Blood Pressure [Right Arm] Blood Pressure Mean [Right Arm] Blood Pressure Source Blood Pressure Position 02 Sat by Pulse Oximetry 99 97 97 Oxygen Delivery Method Room Air Room Air 02/04/24 15:01 02/04/24 15:30 02/04/24 16:15 Temperature Temperature Source Pulse Rate 70 70 Pulse Rate [Right] Respiratory Rate 15 19 18 Blood Pressure 190/86 H 190/83 H 209/91 H Blood Pressure [Right Arm] Blood Pressure Mean [Right Arm] Blood Pressure Source Blood Pressure Position 02 Sat by Pulse Oximetry 99 98 Oxygen Delivery Method Room Air 02/04/24 16:30 02/04/24 17:00 02/04/24 17:26 Temperature Temperature Source Pulse Rate 68 70 70 Pulse Rate [Right] Respiratory Rate 14 22 Blood Pressure 231/97 H 215/92 H 216/90 H Blood Pressure [Right Arm] Blood Pressure Mean [Right Arm] Blood Pressure Source Blood Pressure Position 02 Sat by Pulse Oximetry 98 95 97 Oxygen Delivery Method 02/04/24 17:45 02/04/24 17:57 02/04/24 18:00 Temperature Temperature Source Pulse Rate 70 72 69 Pulse Rate [Right] Respiratory Rate 16 20 15 Blood Pressure 212/88 H 199/94 H 173/77 H Blood Pressure [Right Arm] Blood Pressure Mean [Right Arm] Blood Pressure Source Blood Pressure Position 02 Sat by Pulse Oximetry 98 96 96 Oxygen Delivery Method 02/04/24 18:17 02/04/24 18:20 02/04/24 18:30 Temperature Temperature Source Pulse Rate 68 69 70 Pulse Rate [Right] Respiratory Rate 18 16 12 Blood Pressure 195/91 H 191/80 H 166/65 H Blood Pressure [Right Arm] Blood Pressure Mean [Right Arm] Blood Pressure Source Blood Pressure Position 02 Sat by Pulse Oximetry 99 100 98 Oxygen Delivery Method Room Air Room Air Room Air 02/04/24 18:40 02/04/24 18:50 02/04/24 19:37 Temperature 97.6 F Temperature Source Oral Pulse Rate 71 69 70 Pulse Rate [Right] Respiratory Rate 16 16 16 Blood Pressure 161/64 H 151/58 H 140/57 L Blood Pressure [Right Arm] Blood Pressure Mean [Right Arm] Blood Pressure Source Automatic Cuff Blood Pressure Position Supine 02 Sat by Pulse Oximetry 99 99 Oxygen Delivery Method Room Air Room Air Room Air Lab Data Lab Results 02/04/24 13:20: WBC 6.9, RBC 4.05 L, Hgb 12.1 L, Hct 38.2 L, MCV 94.2 H, MCH 29.8, MCHC 31.6 L, RDW 15.6, Plt Count 170, MPV 10.5 H, Neut % (Auto) 67.4, Lymph % (Auto) 24.6, [place] % (Auto) 6.5, Eos % (Auto) 0.9, Baso % (Auto) 0.5, Neut # (Auto) 4.6, Lymph # (Auto) 1.7, [place] # (Auto) 0.5, Eos # (Auto) 0.1, Baso # (Auto) 0.0, Sodium 144, Potassium 3.9, Chloride 110 H, Carbon Dioxide 28, Anion Gap 9.9, BUN 18, Creatinine 1.30 H, Estimated Creat Clear 45, Estimated GFR 53 L, Est GFR ( Amer) 64, Glucose 146 H, Calcium 9.3, Magnesium 1.4 L, Total Bilirubin 1.6 H, AST 20, ALT 17, Alkaline Phosphatase 88, Troponin I < 0.01, NT-Pro-B Natriuret Pep 2650 H, Total Protein 7.1, Albumin 4.1, Globulin 3.0, Albumin/Globulin Ratio 1.4, Lipase 71 02/04/24 16:16: Troponin I < 0.01 02/04/24 13:20 02/04/24 13:20 Orders (Tests/Meds): ED MEDICATIONS Generic Name Dose Route Start Last Admin Trade Name Jeramy PRN Reason Stop Dose Admin Acetaminophen 650 mg 02/04/24 20:22 Acetaminophen 325mg Tab PO 03/05/24 20:21 Q4HP PRN Fever or Mild Pain (1-3) Albuterol Sulfate 2 puff 02/05/24 00:00 Albuterol-Hfa 90mcg/Puff Inhaler 8gm IH 03/06/24 00:00 Q6RT DARA Apixaban 5 mg 02/04/24 21:15 02/04/24 21:23 Apixaban 5mg Tablet PO 03/05/24 21:14 5 mg BID DARA Administration Atorvastatin Calcium 80 mg 02/04/24 21:00 02/04/24 21:22 Atorvastatin 40mg Tablet PO 03/05/24 20:59 80 mg HS DARA Administration Carvedilol 6.25 mg 02/04/24 21:10 02/04/24 21:23 Carvedilol 6.25mg Tablet PO 03/05/24 21:09 6.25 mg BID DARA Administration Gabapentin 300 mg 02/04/24 21:00 02/04/24 21:23 Gabapentin 300mg Capsule PO 03/05/24 20:59 300 mg BID DARA Administration Nicardipine HCl 25 mg/ Sodium 250 mls @ 50 mls/hr 02/04/24 20:22 02/04/24 22:03 Chloride IV 03/05/24 17:37 0 mls/hr .Q5H DARA Infusion Protocol Ibuprofen 400 mg 02/04/24 20:22 Ibuprofen 400 Mg Tablet PO 03/05/24 20:21 Q6HP PRN Mild Pain (1-3) Magnesium Oxide 400 mg 02/04/24 21:15 Magnesium Oxide 400mg Tablet PO 03/05/24 21:14 BID DARA Metformin HCl 500 mg 02/04/24 21:10 02/04/24 21:22 Metformin 500mg Tablet PO 03/05/24 21:09 500 mg BIDWMEAL DARA Administration Miscellaneous 1 unit 02/04/24 21:03 02/04/24 21:23 Aerochamber/Optihaler MC 02/04/24 21:04 Not Given ONCE ONE Tamsulosin HCl 0.4 mg 02/04/24 21:00 02/04/24 21:23 Tamsulosin 0.4mg Capsule PO 03/05/24 20:59 0.4 mg BID DARA Administration Discontinued Medications Generic Name Dose Route Start Last Admin Trade Name Freq PRN Reason Stop Dose Admin Lactated Ringer's 1,000 mls @ 999 mls/hr 02/04/24 14:05 02/04/24 14:14 Lactated Ringer's 1000 Ml Bag IV 02/04/24 15:05 999 mls/hr .Q1H1M ONE Administration Magnesium Sulfate 2 gm in 50 mls @ 50 mls/hr 02/04/24 14:33 02/04/24 15:00 Magnesium Sulfate 2gm/50ml Premix IV 02/04/24 15:32 50 mls/hr ONCE ONE Administration Nicardipine HCl 25 mg/ Sodium 250 mls @ 50 mls/hr 02/04/24 17:38 02/04/24 17:51 Chloride IV 03/05/24 17:37 50 mls/hr .Q5H DARA Administration Protocol Nitroglycerin 0.4 mg 02/04/24 14:05 02/04/24 14:12 Nitroglycerin 0.4mg Sl Tablet SL 03/05/24 14:04 0.4 mg Q5MINP PRN Administration Chest Pain ORDERS Category Date Time Status Cardiology Consult [Consult to Cardiology] [CONS] Cons 02/04/24 20:22 Active Routine XR chest portable Stat Exams 02/04/24 14:05 Completed BNP [NT Pro Brain Natriuretic Pep.] Stat Lab 02/04/24 13:20 Completed Basic Metabolic Panel AMLAB Lab 02/05/24 06:00 Ordered CBC w/Auto Diff [Complete Blood Count Auto Diff] Stat Lab 02/04/24 13:20 Completed CMP [Comprehensive Metabolic Panel] Stat Lab 02/04/24 13:20 Completed Complete Blood Count Auto Diff AMLAB Lab 02/05/24 06:00 Ordered Lipase Stat Lab 02/04/24 13:20 Completed MAG [Magnesium] Stat Lab 02/04/24 13:20 Completed Troponin I Q3H Lab 02/04/24 13:20 Completed Troponin I Q3H Lab 02/04/24 16:16 Completed Troponin I Q6H Lab 02/04/24 21:15 Completed Troponin I Q6H Lab 02/05/24 03:15 Ordered HEART Score History (anamnesis): Moderately suspicious ECG: Non-specific disturbance Age: >65 years Risk factors: Atherosclerosis history Troponin: </= normal limit HEART Score: 6 Medical Decision Narrative: Patient with history and exam per above presenting for evaluation of hypertension, chest pressure, presyncopal episodes Diagnoses considered include ACS, hypovolemia, electrolyte abnormality, orthostatic hypotension, symptomatic hypertension, there is insufficient evidence to warrant further workup of dissection, pulmonary embolism, no acute evidence of surgical pathology in bilateral lower extremities, however patient does have known history of PAD. Electrolyte abnormality on differential as well, patient is clinically hypovolemic appearing, no clinical evidence of volume overload. ED workup and treatment included: Chest x-ray, EKG, CBC, CMP, lipase, BNP, mag, troponins, patient was treated with 1 L LR, nitroglycerin tab, magnesium sulfate 2 g IV x 1 Labs were independently interpreted by me, significant for initial troponin undetectable, BNP 2650, decreased from baseline, creatinine 1.30 consistent with baseline, no leukocytosis, magnesium 1.4. Imaging was independently visualized and interpreted by me, significant for no acute findings. Please refer to radiology report for full details. Second troponin pending at this time. Patient reports improvement of symptoms after administration of nitroglycerin and IV fluids. Care was transferred to incoming physician. <Hema Cary MD - Last Filed: 02/04/24 22:29> Vital Signs: 02/04/24 13:13 02/04/24 13:14 02/04/24 13:31 Temperature 97.6 F Temperature Source Oral Pulse Rate 70 70 Pulse Rate [Right] 70 Respiratory Rate 18 18 Blood Pressure 157/58 H 181/73 H Blood Pressure [Right Arm] 157/58 H Blood Pressure Mean [Right Arm] 91 Blood Pressure Source Blood Pressure Position 02 Sat by Pulse Oximetry 98 99 99 Oxygen Delivery Method Room Air Room Air 02/04/24 14:00 02/04/24 14:16 02/04/24 14:30 Temperature Temperature Source Pulse Rate 69 68 70 Pulse Rate [Right] Respiratory Rate 13 16 16 Blood Pressure 189/86 H 121/61 136/106 H Blood Pressure [Right Arm] Blood Pressure Mean [Right Arm] Blood Pressure Source Blood Pressure Position 02 Sat by Pulse Oximetry 99 97 97 Oxygen Delivery Method Room Air Room Air 02/04/24 15:01 02/04/24 15:30 02/04/24 16:15 Temperature Temperature Source Pulse Rate 70 70 Pulse Rate [Right] Respiratory Rate 15 19 18 Blood Pressure 190/86 H 190/83 H 209/91 H Blood Pressure [Right Arm] Blood Pressure Mean [Right Arm] Blood Pressure Source Blood Pressure Position 02 Sat by Pulse Oximetry 99 98 Oxygen Delivery Method Room Air 02/04/24 16:30 02/04/24 17:00 02/04/24 17:26 Temperature Temperature Source Pulse Rate 68 70 70 Pulse Rate [Right] Respiratory Rate 14 22 Blood Pressure 231/97 H 215/92 H 216/90 H Blood Pressure [Right Arm] Blood Pressure Mean [Right Arm] Blood Pressure Source Blood Pressure Position 02 Sat by Pulse Oximetry 98 95 97 Oxygen Delivery Method 02/04/24 17:45 02/04/24 17:57 02/04/24 18:00 Temperature Temperature Source Pulse Rate 70 72 69 Pulse Rate [Right] Respiratory Rate 16 20 15 Blood Pressure 212/88 H 199/94 H 173/77 H Blood Pressure [Right Arm] Blood Pressure Mean [Right Arm] Blood Pressure Source Blood Pressure Position 02 Sat by Pulse Oximetry 98 96 96 Oxygen Delivery Method 02/04/24 18:17 02/04/24 18:20 02/04/24 18:30 Temperature Temperature Source Pulse Rate 68 69 70 Pulse Rate [Right] Respiratory Rate 18 16 12 Blood Pressure 195/91 H 191/80 H 166/65 H Blood Pressure [Right Arm] Blood Pressure Mean [Right Arm] Blood Pressure Source Blood Pressure Position 02 Sat by Pulse Oximetry 99 100 98 Oxygen Delivery Method Room Air Room Air Room Air 02/04/24 18:40 02/04/24 18:50 02/04/24 19:37 Temperature 97.6 F Temperature Source Oral Pulse Rate 71 69 70 Pulse Rate [Right] Respiratory Rate 16 16 16 Blood Pressure 161/64 H 151/58 H 140/57 L Blood Pressure [Right Arm] Blood Pressure Mean [Right Arm] Blood Pressure Source Automatic Cuff Blood Pressure Position Supine 02 Sat by Pulse Oximetry 99 99 Oxygen Delivery Method Room Air Room Air Room Air Lab Data Lab Results 02/04/24 13:20: WBC 6.9, RBC 4.05 L, Hgb 12.1 L, Hct 38.2 L, MCV 94.2 H, MCH 29.8, MCHC 31.6 L, RDW 15.6, Plt Count 170, MPV 10.5 H, Neut % (Auto) 67.4, Lymph % (Auto) 24.6, [place] % (Auto) 6.5, Eos % (Auto) 0.9, Baso % (Auto) 0.5, Neut # (Auto) 4.6, Lymph # (Auto) 1.7, [place] # (Auto) 0.5, Eos # (Auto) 0.1, Baso # (Auto) 0.0, Sodium 144, Potassium 3.9, Chloride 110 H, Carbon Dioxide 28, Anion Gap 9.9, BUN 18, Creatinine 1.30 H, Estimated Creat Clear 45, Estimated GFR 53 L, Est GFR ( Amer) 64, Glucose 146 H, Calcium 9.3, Magnesium 1.4 L, Total Bilirubin 1.6 H, AST 20, ALT 17, Alkaline Phosphatase 88, Troponin I < 0.01, NT-Pro-B Natriuret Pep 2650 H, Total Protein 7.1, Albumin 4.1, Globulin 3.0, Albumin/Globulin Ratio 1.4, Lipase 71 02/04/24 16:16: Troponin I < 0.01 Orders (Tests/Meds): ED MEDICATIONS Generic Name Dose Route Start Last Admin Trade Name Freq PRN Reason Stop Dose Admin Acetaminophen 650 mg 02/04/24 20:22 Acetaminophen 325mg Tab PO 03/05/24 20:21 Q4HP PRN Fever or Mild Pain (1-3) Albuterol Sulfate 2 puff 02/05/24 00:00 Albuterol-Hfa 90mcg/Puff Inhaler 8gm IH 03/06/24 00:00 Q6RT DARA Apixaban 5 mg 02/04/24 21:15 02/04/24 21:23 Apixaban 5mg Tablet PO 03/05/24 21:14 5 mg BID DARA Administration Atorvastatin Calcium 80 mg 02/04/24 21:00 02/04/24 21:22 Atorvastatin 40mg Tablet PO 03/05/24 20:59 80 mg HS DARA Administration Carvedilol 6.25 mg 02/04/24 21:10 02/04/24 21:23 Carvedilol 6.25mg Tablet PO 03/05/24 21:09 6.25 mg BID DARA Administration Gabapentin 300 mg 02/04/24 21:00 02/04/24 21:23 Gabapentin 300mg Capsule PO 03/05/24 20:59 300 mg BID DARA Administration Nicardipine HCl 25 mg/ Sodium 250 mls @ 50 mls/hr 02/04/24 20:22 02/04/24 22:03 Chloride IV 03/05/24 17:37 0 mls/hr .Q5H DARA Infusion Protocol Ibuprofen 400 mg 02/04/24 20:22 Ibuprofen 400 Mg Tablet PO 03/05/24 20:21 Q6HP PRN Mild Pain (1-3) Magnesium Oxide 400 mg 02/04/24 21:15 Magnesium Oxide 400mg Tablet PO 03/05/24 21:14 BID DARA Metformin HCl 500 mg 02/04/24 21:10 02/04/24 21:22 Metformin 500mg Tablet PO 03/05/24 21:09 500 mg BIDWMEAL DARA Administration Miscellaneous 1 unit 02/04/24 21:03 02/04/24 21:23 Aerochamber/Optihaler MC 02/04/24 21:04 Not Given ONCE ONE Tamsulosin HCl 0.4 mg 02/04/24 21:00 02/04/24 21:23 Tamsulosin 0.4mg Capsule PO 03/05/24 20:59 0.4 mg BID DARA Administration Discontinued Medications Generic Name Dose Route Start Last Admin Trade Name Freq PRN Reason Stop Dose Admin Lactated Ringer's 1,000 mls @ 999 mls/hr 02/04/24 14:05 02/04/24 14:14 Lactated Ringer's 1000 Ml Bag IV 02/04/24 15:05 999 mls/hr .Q1H1M ONE Administration Magnesium Sulfate 2 gm in 50 mls @ 50 mls/hr 02/04/24 14:33 02/04/24 15:00 Magnesium Sulfate 2gm/50ml Premix IV 02/04/24 15:32 50 mls/hr ONCE ONE Administration Nicardipine HCl 25 mg/ Sodium 250 mls @ 50 mls/hr 02/04/24 17:38 02/04/24 17:51 Chloride IV 03/05/24 17:37 50 mls/hr .Q5H DARA Administration Protocol Nitroglycerin 0.4 mg 02/04/24 14:05 02/04/24 14:12 Nitroglycerin 0.4mg Sl Tablet SL 03/05/24 14:04 0.4 mg Q5MINP PRN Administration Chest Pain ORDERS Category Date Time Status Cardiology Consult [Consult to Cardiology] [CONS] Cons 02/04/24 20:22 Active Routine XR chest portable Stat Exams 02/04/24 14:05 Completed BNP [NT Pro Brain Natriuretic Pep.] Stat Lab 02/04/24 13:20 Completed Basic Metabolic Panel AMLAB Lab 02/05/24 06:00 Ordered CBC w/Auto Diff [Complete Blood Count Auto Diff] Stat Lab 02/04/24 13:20 Completed CMP [Comprehensive Metabolic Panel] Stat Lab 02/04/24 13:20 Completed Complete Blood Count Auto Diff AMLAB Lab 02/05/24 06:00 Ordered Lipase Stat Lab 02/04/24 13:20 Completed MAG [Magnesium] Stat Lab 02/04/24 13:20 Completed Troponin I Q3H Lab 02/04/24 13:20 Completed Troponin I Q3H Lab 02/04/24 16:16 Completed Troponin I Q6H Lab 02/04/24 21:15 Completed Troponin I Q6H Lab 02/05/24 03:15 Ordered HEART Score HEART Score: 6 Medical Decision Narrative: Patient with history and exam per above presenting for evaluation of hypertension, chest pressure, presyncopal episodes Diagnoses considered include ACS, hypovolemia, electrolyte abnormality, orthostatic hypotension, symptomatic hypertension, there is insufficient evidence to warrant further workup of dissection, pulmonary embolism, no acute evidence of surgical pathology in bilateral lower extremities, however patient does have known history of PAD. Electrolyte abnormality on differential as well, patient is clinically hypovolemic appearing, no clinical evidence of volume overload. ED workup and treatment included: Chest x-ray, EKG, CBC, CMP, lipase, BNP, mag, troponins, patient was treated with 1 L LR, nitroglycerin tab, magnesium sulfate 2 g IV x 1 Labs were independently interpreted by me, significant for initial troponin undetectable, BNP 2650, decreased from baseline, creatinine 1.30 consistent with baseline, no leukocytosis, magnesium 1.4. Imaging was independently visualized and interpreted by me, significant for no acute findings. Please refer to radiology report for full details. Second troponin pending at this time. Patient reports improvement of symptoms after administration of nitroglycerin and IV fluids. Care was transferred to incoming physician. Hema Cary: Upon assumption of care patient was hemodynamically stable and had improved symptoms from arrival. Workup reviewed by me, hematologic labs remarkable for hypomagnesemia and elevated creatinine without ROSARIO. Magnesium was ordered and being replaced prior to my assumption of care. Patient does have elevated BNP however is intravascularly deplete upon arrival and was resuscitated with crystalloid prior to my assumption of care. Serial troponins are undetectably low. Upon repeat evaluation patient had significantly elevated blood pressure and persistent chest symptoms. Given this patient has hypertensive emergency and will be started on Cardene drip. The case was discussed with Dr. Carballo and patient will be admitted to his service for continued evaluation at this time. Critical Care <Wali Acevedo MD - Last Filed: 02/04/24 15:25> Critical Care Time Critical Care Time: No
[2024-02-04 13:55] LABS: Chloride 110 mmol/L (98-107); Potassium 3.9 mmoL/L (3.5-5.1); Sodium 144 mmol/L (136-145)
[2024-02-04 13:57] LABS: Blood Urea Nitrogen 18 mg/dl (9-20); Creatinine Clearance Estimated 45 mL/min (50-200); Estimated Glomerular Filt Rate 53 ml/min (>60); GFR (African American) 64 ML/MIN (>60)
[2024-02-04 13:58] LABS: Alanine Aminotransferase 17 U/L (12-78); Albumin Level 4.1 g/dl (3.5-5.0); Albumin/Globulin Ratio 1.4 (1.1-1.8); Alkaline Phosphatase 88 U/L (38-126); Anion Gap 9.9 mEq/L (5-15); Aspartate Amino Transferase 20 U/L (17-59); Bilirubin,Total 1.6 mg/dl (0.2-1.3); Calcium 9.3 mg/dl (8.4-10.2); Carbon Dioxide 28 mmol/L (22.0-30.0); Glucose 146 mg/dl (74-100); Lipase 71 U/L (23-300); Total Protein,Serum 7.1 g/dl (6.3-8.2)
--- NOTE | 2024-02-04 14:05 | XR_ITS ---
PROCEDURE INFORMATION: Exam: XR Chest Exam date and time: 02/04/2024 2:16 PM Age: 83 years old Clinical indication: Shortness of breath; Additional info: SOA, presyncope, chest pain TECHNIQUE: Imaging protocol: Radiologic exam of the chest. Views: 1 view. COMPARISON: CR XR CHEST PORTABLE 02/08/2023 12:21 PM FINDINGS: Tubes, catheters and devices: Pacemaker device Lungs: Persistent mild pulmonary vascular redistribution. Bilateral ground-glass regions of opacification. Findings nonspecific however most likely reflect interstitial lung disease. An acute inflammatory process could not be entirely excluded. Bibasilar regions of subsegmental atelectasis. Pleural spaces: Unremarkable. No pleural effusion. No pneumothorax. Heart/Mediastinum: Unremarkable. No cardiomegaly. Bones/joints: Unremarkable. IMPRESSION: 1. Findings compatible with interstitial lung disease. 2. No evidence of acute cardiopulmonary disease.
[2024-02-04 14:06] LABS: Basophils % 0.5 % (0.1-2.0); Eosinophils # 0.1 K/mm3 (0.0-0.4); Eosinophils % 0.9 % (0.1-12.0); Hematocrit 38.2 % (42.0-52.0); Hemoglobin 12.1 g/dL (14.1-18.0); Lymphocytes # 1.7 K/mm3 (0.7-4.5); Lymphocytes % 24.6 % (10-50); Mean Corpuscular HGB Conc 31.6 g/dL (31.8-35.4); Mean Corpuscular Hemoglobin 29.8 pg (27.0-31.2); Mean Corpuscular Volume 94.2 fl (80-94); Mean Platelet Volume 10.5 fl (7.4-10.4); Monocytes # 0.5 K/mm3 (0.1-1.0); Monocytes % 6.5 % (1.7-9.3); Neutrophils # 4.6 K/mm3 (1.8-7.8); Neutrophils % 67.4 % (37.0-80.0); Platelet Count 170 K/mm3 (142-424); Red Blood Count 4.05 M/mm3 (4.60-6.20); Red Cell Distribution Width 15.6 % (11.5-17.5); White Blood Count 6.9 K/mm3 (4.8-10.8)
[2024-02-04 14:11] LABS: Troponin I < 0.01 ng/ml (0.00-0.034)
[2024-02-04] MEDS: NITROGLYCERIN 0.4MG SL TABLET 0.4 MG SL (14:12)
[2024-02-04] MEDS: LACTATED RINGERS 1000ML 1,000 ML 999 ML IV (14:14)
[2024-02-04 14:15] LABS: Magnesium 1.4 mg/dl (1.6-2.3)
--- NOTE | 2024-02-04 14:16 | PC.NURSE ---
pain level was 6/7 before nitro pain went to 4/5.
[2024-02-04 14:24] LABS: NT Pro Brain Natriuretic Pep. 2650 pg/mL (0-450)
[2024-02-04] MEDS: MAGNESIUM SULFATE IN WATER 2 GM/50 ML PIGGYBACK IV (15:00)
[2024-02-04 16:52] LABS: Troponin I < 0.01 ng/ml (0.00-0.034)
[2024-02-04] MEDS: NICARDIPINE HCL 25 MG in 0.9 % SODIUM CHLORIDE 240 ML 50 MG IV ×2 (17:51→20:33)
--- NOTE | 2024-02-04 19:36 | PC.NURSE ---
Report to Kieran Harris RN #[id number]
--- NOTE | 2024-02-04 19:38 | PC.NURSE ---
Report received from Shari EMT
--- NOTE | 2024-02-04 19:53 | PC.NURSE ---
Patient arrived to floor via stretcher from ED at 19:48.
[2024-02-04] MEDS: ATORVASTATIN 40MG TABLET 80 MG PO (21:22)
[2024-02-04] MEDS: METFORMIN 500MG TABLET 500 MG PO (21:22)
[2024-02-04] MEDS: GABAPENTIN 300MG CAPSULE 300 MG PO (21:23)
[2024-02-04] MEDS: TAMSULOSIN 0.4MG CAPSULE 0.4 MG PO (21:23)
[2024-02-04] MEDS: CARVEDILOL 6.25MG TABLET 6.25 MG PO (21:23)
[2024-02-04] MEDS: APIXABAN 5MG TABLET 5 MG PO (21:23)
[2024-02-04 22:01] LABS: Troponin I < 0.01 ng/ml (0.00-0.034)
[2024-02-04] MEDS: ALBUTEROL-HFA 90MCG/PUFF INHALER 8GM 2 PUFF IH (23:24)
[2024-02-04] MEDS: MAGNESIUM OXIDE 400MG TABLET 400 MG PO (23:59)
[2024-02-05] VITALS (12 sets, daily range): BP systolic 132–180; BP diastolic 67–102; PULSE 70–80; RESP 16–23; TEMP 36.6–36.9; O2SAT 93–97; BMI 25.3
[2024-02-05 04:21] LABS: Troponin I 0.01 ng/ml (0.00-0.034)
[2024-02-05] MEDS: ALBUTEROL-HFA 90MCG/PUFF INHALER 8GM 2 PUFF IH ×4 (06:15→23:04)
--- NOTE | 2024-02-05 06:49 | CA_ITS ---
APPROVED REPORT EXAM: Comprehensive 2D, Doppler, and color-flow Echocardiogram Chicken Buyer: Tara Ortiz CRT Ht: 5 ft 6 in Wt: 157lbs BSA: 1.80 BP: 140/57 mmHg Indications: Chest Pain, COPD, Diabetes, Hyperlipidemia, Hypertension/HDD,ex smoker, TIA, SSS, Home O2, renal stent 2D Dimensions LA Volume 66.40 mL LA Volume Index 35.90 mL/m2 (M/F) 16-34 M-Mode Dimensions RVDd 2.01 cm (0.9-2.6) LA Diam 3.88 cm (1.9-4.0) LVDd 4.56 cm (3.5-5.7) LVDs 2.01 cm (3.5-5.7) IVSd 1.79 cm (0.6-1.1) PWd 0.99 cm (0.6-1.1) EF (Teich) 86.50% FS 55.90% EDV (Teich) 95.40 mL ESV (Teich) 12.90 mL LV Diastology E Decel Time 177 (160-240 msec) E/A Ratio 4.51 MED A' 3.20 cm/s LAT A' 4.60 cm/s Aortic Valve AO Peak GR. 6.10 mmHg Mitral Valve MV A Velocity 27.0 (40-130 cm/s) E/A Ratio 4.51 Pulmonary Valve PV Peak Velocity 153.0 (50-150 cm/s) Tricuspid Valve TR P. Velocity 299.00 cm/s RAP Estimate 10.00 mmHg RVSP 45.60 mmHg Left Ventricle The left ventricle is normal size. The left ventricular systolic function is normal. The left ventricular ejection fraction is within the normal range. There is increased LV wall thickness. There is normal LV segmental wall motion. Grade 3 diastolic dysfunction is present. LVEF is 60%. Right Ventricle The right ventricle is mildly dilated. Right ventricle is mildly hypokinetic. Atria Left atrium is mildly dilated. Right atrium is mildly dilated. There is no Doppler evidence of interatrial shunt. Aortic Valve Aortic valve is mildly thickened. Aortic sclerosis, but no evidence of aortic stenosis. Trace aortic regurgitation. Mitral Valve Mild mitral annular calcification. The mitral valve leaflets are mildly thickened. No evidence of mitral valve stenosis. Trace mitral regurgitation. Tricuspid Valve The tricuspid valve leaflets are thin and pliable. Mild tricuspid regurgitation. RVSP is 20-25 mmHg. Pulmonic Valve The pulmonary valve is normal in structure. Mild pulmonic regurgitation. Great Vessels The aortic root is normal in size. The ascending aorta is not well-visualized. IVC is normal in size and collapses >50% with inspiration. Pericardium There is no pericardial effusion. Other Information Study Quality: Technically Difficult Conclusion Technically difficult study due to poor acoustic windows. Normal LV systolic function. Grade 3 diastolic dysfunction. Mild RV dilation with mild reduction in RV function. Biatrial dilation. Mild TR, mild PI. Electronically signed by : Emily Perdue MD 02/07/2024 15:24:23
[2024-02-05 07:02] LABS: Basophils % 0.4 % (0.1-2.0); Eosinophils # 0.1 K/mm3 (0.0-0.4); Hematocrit 38.6 % (42.0-52.0); Hemoglobin 12.3 g/dL (14.1-18.0); Lymphocytes # 1.4 K/mm3 (0.7-4.5); Lymphocytes % 18.5 % (10-50); Mean Corpuscular HGB Conc 31.8 g/dL (31.8-35.4); Mean Corpuscular Hemoglobin 29.1 pg (27.0-31.2); Mean Corpuscular Volume 91.6 fl (80-94); Mean Platelet Volume 11.3 fl (7.4-10.4); Monocytes # 0.6 K/mm3 (0.1-1.0); Monocytes % 7.6 % (1.7-9.3); Neutrophils # 5.6 K/mm3 (1.8-7.8); Neutrophils % 72.5 % (37.0-80.0); Platelet Count 165 K/mm3 (142-424); Red Blood Count 4.22 M/mm3 (4.60-6.20); Red Cell Distribution Width 15.5 % (11.5-17.5); White Blood Count 7.8 K/mm3 (4.8-10.8)
[2024-02-05 07:06] LABS: Blood Urea Nitrogen 18 mg/dl (9-20); Calcium 9.1 mg/dl (8.4-10.2); Carbon Dioxide 25 mmol/L (22.0-30.0); Chloride 109 mmol/L (98-107); Creatinine Clearance Estimated 51 mL/min (50-200); Estimated Glomerular Filt Rate 64 ml/min (>60); GFR (African American) 77 ML/MIN (>60); Glucose 108 mg/dl (74-100); Sodium 140 mmol/L (136-145)
[2024-02-05] MEDS: MAGNESIUM OXIDE 400MG TABLET 400 MG PO ×2 (08:30→20:41)
[2024-02-05] MEDS: GABAPENTIN 300MG CAPSULE 300 MG PO ×2 (08:30→20:42)
[2024-02-05] MEDS: METFORMIN 500MG TABLET 500 MG PO ×2 (08:30→16:53)
[2024-02-05] MEDS: APIXABAN 5MG TABLET 5 MG PO (08:30)
[2024-02-05] MEDS: TAMSULOSIN 0.4MG CAPSULE 0.4 MG PO ×2 (08:30→20:42)
[2024-02-05] MEDS: CARVEDILOL 6.25MG TABLET 6.25 MG PO ×3 (08:30→20:42)
--- NOTE | 2024-02-05 09:46 | EXP.ACUTE.PN ---
Subjective *Date: 02/05/24 *Time: 09:46 Interval history: Mr. Kim is a patient of Dr. Linton with longstanding hypertensive cardiovascular disease. He presented in the emergency room because he was feeling badly and his blood pressure was found to be elevated at home. He was admitted from the emergency room and placed on nicardipine drip. His blood pressure came down he remained stable overnight. Cardiology was consulted and they have not yet seen him this morning. His blood pressure remained stable. My plan is to discharge him on his regular medications except that amlodipine will be increased to 5 mg. Medical Exam Vital signs and Labs for Last 24 Hours: Vital Signs Temp Pulse Pulse Resp BP BP Pulse Ox 02/05/24 09:00 02/05/24 08:00 98.0 F 02/05/24 08:00 70 20 154/102 H 95 02/05/24 08:00 02/05/24 08:00 70 02/05/24 06:00 70 23 166/92 H 95 02/05/24 05:00 02/05/24 04:00 70 02/05/24 04:00 97.9 F 70 23 143/80 H 94 L 02/05/24 03:00 02/05/24 02:00 70 20 150/86 H 93 L 02/05/24 01:00 02/05/24 00:00 70 02/05/24 00:00 97.8 F 02/04/24 23:00 02/04/24 22:00 71 22 119/76 94 L 02/04/24 21:00 02/04/24 20:33 97.7 F 79 24 144/74 H 94 L 02/04/24 20:04 79 02/04/24 19:37 97.6 F 70 16 140/57 L 02/04/24 18:50 69 16 151/58 H 99 02/04/24 18:40 71 16 161/64 H 99 02/04/24 18:30 70 12 166/65 H 98 02/04/24 18:20 69 16 191/80 H 100 02/04/24 18:17 68 18 195/91 H 99 02/04/24 18:00 69 15 173/77 H 96 02/04/24 17:57 72 20 199/94 H 96 02/04/24 17:45 70 16 212/88 H 98 02/04/24 17:26 70 22 216/90 H 97 02/04/24 17:00 70 215/92 H 95 02/04/24 16:30 68 14 231/97 H 98 02/04/24 16:15 18 209/91 H 02/04/24 15:30 70 19 190/83 H 98 02/04/24 15:01 70 15 190/86 H 99 02/04/24 14:30 70 16 136/106 H 97 02/04/24 14:16 68 16 121/61 97 02/04/24 14:00 69 13 189/86 H 99 02/04/24 13:31 70 18 181/73 H 99 02/04/24 13:14 70 157/58 H 99 02/04/24 13:13 97.6 F 70 18 157/58 H 98 O2 Del Method 02/05/24 09:00 Room Air 02/05/24 08:00 02/05/24 08:00 Room Air 02/05/24 08:00 Room Air 02/05/24 08:00 02/05/24 06:00 Room Air 02/05/24 05:00 Room Air 02/05/24 04:00 02/05/24 04:00 Room Air 02/05/24 03:00 Room Air 02/05/24 02:00 Room Air 02/05/24 01:00 Room Air 02/05/24 00:00 02/05/24 00:00 02/04/24 23:00 Room Air 02/04/24 22:00 Room Air 02/04/24 21:00 Room Air 02/04/24 20:33 Room Air 02/04/24 20:04 02/04/24 19:37 Room Air 02/04/24 18:50 Room Air 02/04/24 18:40 Room Air 02/04/24 18:30 Room Air 02/04/24 18:20 Room Air 02/04/24 18:17 Room Air 02/04/24 18:00 02/04/24 17:57 02/04/24 17:45 02/04/24 17:26 02/04/24 17:00 02/04/24 16:30 02/04/24 16:15 02/04/24 15:30 Room Air 02/04/24 15:01 02/04/24 14:30 Room Air 02/04/24 14:16 Room Air 02/04/24 14:00 02/04/24 13:31 Room Air 02/04/24 13:14 02/04/24 13:13 Room Air Intake and Output 02/04/24 02/05/24 02/05/24 19:59 03:59 11:59 Intake Total 537.916 / 1257.916 720 / 1257.916 Output Total 350 / 350 0 / 350 Balance 187.916 / 907.916 720 / 907.916 Intake: Intake, Oral Amount 500 / 1220 720 / 1220 Intake, Total IV Amount 37.916 / 37.916 Output: Output, Urine Amount 350 / 350 0 / 350 Other: Number of Unmeasured Voids 0 1 Number of Bowel Movements 1 Weight 167 lb 157 lb 9.6 oz 157 lb 9.6 oz Patient Weight 02/05/24 11:59 Weight 157 lb 9.6 oz Laboratory Results - last 24 hr 02/04/24 13:20: WBC 6.9, RBC 4.05 L, Hgb 12.1 L, Hct 38.2 L, MCV 94.2 H, MCH 29.8, MCHC 31.6 L, RDW 15.6, Plt Count 170, MPV 10.5 H, Neut % (Auto) 67.4, Lymph % (Auto) 24.6, [place] % (Auto) 6.5, Eos % (Auto) 0.9, Baso % (Auto) 0.5, Neut # (Auto) 4.6, Lymph # (Auto) 1.7, [place] # (Auto) 0.5, Eos # (Auto) 0.1, Baso # (Auto) 0.0, Sodium 144, Potassium 3.9, Chloride 110 H, Carbon Dioxide 28, Anion Gap 9.9, BUN 18, Creatinine 1.30 H, Estimated Creat Clear 45, Estimated GFR 53 L, Est GFR ( Amer) 64, Glucose 146 H, Calcium 9.3, Magnesium 1.4 L, Total Bilirubin 1.6 H, AST 20, ALT 17, Alkaline Phosphatase 88, Troponin I < 0.01, NT-Pro-B Natriuret Pep 2650 H, Total Protein 7.1, Albumin 4.1, Globulin 3.0, Albumin/Globulin Ratio 1.4, Lipase 71 07/07/24 16:16: Troponin I < 0.01 02/04/24 21:15: Troponin I < 0.01 02/05/24 03:41: Troponin I 0.01 02/05/24 05:36: WBC 7.8, RBC 4.22 L, Hgb 12.3 L, Hct 38.6 L, MCV 91.6, MCH 29.1, MCHC 31.8, RDW 15.5, Plt Count 165, MPV 11.3 H, Neut % (Auto) 72.5, Lymph % (Auto) 18.5, [place] % (Auto) 7.6, Eos % (Auto) 1.0, Baso % (Auto) 0.4, Neut # (Auto) 5.6, Lymph # (Auto) 1.4, [place] # (Auto) 0.6, Eos # (Auto) 0.1, Baso # (Auto) 0.0, Sodium 140, Potassium 4.0, Chloride 109 H, Carbon Dioxide 25, Anion Gap 10.0, BUN 18, Creatinine 1.10, Estimated Creat Clear 51, Estimated GFR 64, Est GFR ( Amer) 77 D, Glucose 108 H D, Calcium 9.1 I & O for Labs for Last 24 Hours: Intake & Output 02/02/24 02/03/24 02/04/24 02/05/24 11:59 11:59 11:59 11:59 Intake Total 1257.916 / 1257.916 Output Total 350 / 350 Balance 907.916 / 907.916 Weight 157 lb 9.6 oz Head: Present normocephalic ENT: Present mucous membranes moist Neck: Present normal inspection and full ROM Respiratory: Present decreased breath sounds Cardiac: Present Reg Rate and Rhythm GI: Present soft; Absent distention or tenderness Rectal (male): Present deferred (male): Present deferred Extremities: Absent edema Skin: Present intact Neuro: Present alert and oriented x 3 Assessment and Plan *Assessment and plan (1) Hypertensive emergency: Status: Acute Category: Medical Code(s): I16.1 - Hypertensive emergency (2) Chest fullness: Status: Acute Category: Medical Code(s): R07.89 - Other chest pain (3) Atypical chest pain: Status: Acute Category: Medical Code(s): R07.89 - Other chest pain (4) PAD (peripheral artery disease): Status: Chronic Category: Medical Code(s): I73.9 - Peripheral vascular disease, unspecified (5) HTN (hypertension): Status: Chronic Qualifiers: Hypertension type: essential hypertension Qualified Code(s): I10 - Essential (primary) hypertension Category: Medical Code(s): I10 - Essential (primary) hypertension (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 Awaiting cardiology consultation.
[2024-02-05] MEDS: AMLODIPINE 5MG TABLET 5 MG PO (09:56)
[2024-02-05] MEDS: LISINOPRIL 5MG TABLET 5 MG PO (09:56)
--- NOTE | 2024-02-05 09:59 | HMH.PHAINT1 ---
Pharmacy Intervention Comments: MEDICATION RECONCILIATION COMPLETED ON PATIENT USING EXTERNAL FILL HISTORY FROM PHARMACY. -DEEDEE GONZALEZ, MEDARDOD
--- NOTE | 2024-02-05 11:00 | EXP.CARD.CON ---
History of Present Illness History of Present Illness Consult date: 02/05/24 Requesting physician: Hema Cary Consult reason: chest pain Chief complaint: chest pain History of present illness: 83-year-old white male established patient of our office with a history of CAD, PAF, PPM. Last heart cath was June 2022 and showed patent stents. Last echo was August 2022 and showed normal EF with biatrial enlargement. Last ICD check was done remotely October 2023 and showed RV pacing 94% with NSVT x 16 seconds on October 24 of this year. Patient typically fairly sedentary at home, no heavy exertion. States he had several episodes recently of chest discomfort at rest which required the use of sublingual nitroglycerin. Over the past 24 hours has noticed rising blood pressures greater than 200 associated with chest pain. On arrival here his blood pressure was 230 systolic. He was placed on Cardene drip and admitted overnight. Serial troponins are normal. EKG shows V paced rhythm. He is currently asymptomatic. Family is bedside and states typically his blood pressure is well-controlled on low-dose BP medications and he has never had elevations like this. He does report prior renal artery stenting. [facility] Disclaimer: The information contained in this section may have been updated after the patient was seen, as this information can be updated by other users. 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 pause emt intermediate current use 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 therapy HTN (hypertension) HLD (hyperlipidemia) RHONDA (renal artery stenosis) Dyspnea Edema Congestive heart failure COPD (chronic obstructive pulmonary disease) CAD (coronary artery disease) Surgical History History of cholecystectomy History of renal stent Family History Sister Breast cancer Son Diabetes Sister Leukemia Social History Smoking Status: Former smoker tobacco type: cigarettes packs per day: 1 years smoked: 35 second hand exposure: No alcohol intake: never counseling provided: none substance use type: denies use current occupational status: retired Travel in the last 8 weeks: Inside the [place] household members: children housing: house current occupational exposures/hazards: No caffeine: Yes Review of Systems Constitutional Constitutional: Denies fatigue and Denies weakness Eyes Eyes: Denies loss of vision ENT Ears, Nose, Mouth, and Throat: Denies hearing loss and Denies vertigo *Cardiovascular Cardiovascular: Reports chest pain, Reports dyspnea and Denies syncope *Respiratory Respiratory: Denies cough and Reports dyspnea *Gastrointestinal Gastrointestinal: Denies change in stool character, Denies nausea and Denies vomiting *Genitourinary Genitourinary: Denies difficulty urinating *Musculoskeletal Musculoskeletal: Denies muscle weakness Integumentary/Breasts Skin/Breast: Denies changing lesions *Neurologic Neurologic: Denies loss of vision, Denies syncope, Denies vertigo and Denies weakness Endocrine Endocrine: Denies fatigue Exam Data for Last 24 hours Vital signs and Labs for Last 24 Hours: Temp Pulse Resp BP Pulse Ox O2 Del Method 98.0 F 70 22 171/97 H 96 Room Air 02/05/24 08:00 02/05/24 10:00 02/05/24 10:00 02/05/24 10:00 02/05/24 10:00 02/05/24 10:00 Laboratory Results - last 24 hr 02/04/24 13:20: WBC 6.9, RBC 4.05 L, Hgb 12.1 L, Hct 38.2 L, MCV 94.2 H, MCH 29.8, MCHC 31.6 L, RDW 15.6, Plt Count 170, MPV 10.5 H, Neut % (Auto) 67.4, Lymph % (Auto) 24.6, [place] % (Auto) 6.5, Eos % (Auto) 0.9, Baso % (Auto) 0.5, Neut # (Auto) 4.6, Lymph # (Auto) 1.7, [place] # (Auto) 0.5, Eos # (Auto) 0.1, Baso # (Auto) 0.0, Sodium 144, Potassium 3.9, Chloride 110 H, Carbon Dioxide 28, Anion Gap 9.9, BUN 18, Creatinine 1.30 H, Estimated Creat Clear 45, Estimated GFR 53 L, Est GFR ( Amer) 64, Glucose 146 H, Calcium 9.3, Magnesium 1.4 L, Total Bilirubin 1.6 H, AST 20, ALT 17, Alkaline Phosphatase 88, Troponin I < 0.01, NT-Pro-B Natriuret Pep 2650 H, Total Protein 7.1, Albumin 4.1, Globulin 3.0, Albumin/Globulin Ratio 1.4, Lipase 71 02/04/24 16:16: Troponin I < 0.01 02/04/24 21:15: Troponin I < 0.01 02/05/24 03:41: Troponin I 0.01 02/05/24 05:36: WBC 7.8, RBC 4.22 L, Hgb 12.3 L, Hct 38.6 L, MCV 91.6, MCH 29.1, MCHC 31.8, RDW 15.5, Plt Count 165, MPV 11.3 H, Neut % (Auto) 72.5, Lymph % (Auto) 18.5, [place] % (Auto) 7.6, Eos % (Auto) 1.0, Baso % (Auto) 0.4, Neut # (Auto) 5.6, Lymph # (Auto) 1.4, [place] # (Auto) 0.6, Eos # (Auto) 0.1, Baso # (Auto) 0.0, Sodium 140, Potassium 4.0, Chloride 109 H, Carbon Dioxide 25, Anion Gap 10.0, BUN 18, Creatinine 1.10, Estimated Creat Clear 51, Estimated GFR 64, Est GFR ( Amer) 77 D, Glucose 108 H D, Calcium 9.1 I & O for Last 24 hours: Intake & Output 02/02/24 02/03/24 02/04/24 02/05/24 23:59 23:59 23:59 23:59 Intake Total 37.916 / 095.919 3825 / 1220 Output Total 350 / 350 0 / 0 Balance -312.084 / 020.916 6329 / 1220 Weight 157 lb 9.6 oz 157 lb 9.6 oz Constitutional Constitutional: no acute distress and cooperative *Routine HEENT Exam Eye: Present PERRL *Routine Respiratory Exam Respiratory: Present CTA bilaterally and wheezes; Absent accessory muscle use or crackles *Routine Cardiovascular Exam Cardiovascular: Present RRR, Normal S1 and Normal S2; Absent murmur, gallop or rubs *Routine Abdominal Exam Abdominal: Present soft; Absent tenderness *Routine Extremities Exam Extremities: Present pulses intact; Absent cyanosis or edema *Routine Skin Exam Skin: Present intact; Absent erythema or wounds *Routine Neurological Exam Neurological: Present alert and oriented X3 Routine Psychiatric Exam Psychiatric: Present cooperative Meds Home Medications and Allergies Home Medications Medication Instructions Recorded Confirmed Type atorvastatin 80 mg tablet 80 mg PO HS 09/10/17 02/04/24 History tamsulosin 0.4 mg capsule 0.8 mg PO DAILY 09/10/17 02/05/24 History apixaban 5 mg tablet (Eliquis) 5 mg PO BID 01/29/18 02/05/24 History gabapentin 300 mg capsule 300 mg PO BID 01/20/20 02/05/24 History fluticasone fur. 100 mcg-umeclid 1 puff inhalation DAILY 05/15/20 02/05/24 History 62.5 mcg-vilant 25 mcg inhalat.powder metformin 500 mg tablet,extended 1,000 mg PO DAILY 11/29/20 02/05/24 History release 24 hr famotidine 40 mg tablet 40 mg PO HS 05/07/23 02/05/24 History ferrous sulfate 325 mg (65 mg 325 mg PO DAILY 05/07/23 02/05/24 History iron) tablet (FeroSul) lisinopril 5 mg tablet 5 mg PO DAILY 08/09/23 02/05/24 History omeprazole 20 mg capsule,delayed 20 mg PO DAILY 11/08/23 02/05/24 History release amlodipine 2.5 mg tablet 2.5 mg PO DAILY 02/04/24 02/05/24 History clopidogrel 75 mg tablet 75 mg PO DAILY 02/04/24 02/05/24 History carvedilol 3.125 mg tablet 3.125 mg PO BID 02/05/24 02/05/24 History nitroglycerin 0.4 mg sublingual 0.4 mg sublingual Q5MINP PRN chest 02/05/24 02/05/24 History tablet pain New Prescriptions to Start Prescriptions: Allergies Allergy/AdvReac Type Severity Reaction Status Date / Time Penicillins Allergy Verified 11/08/23 09:16 Assessment and Plan *Assessment and plan (1) Hypertensive emergency: Status: Acute Category: Medical Code(s): I16.1 - Hypertensive emergency (2) A-fib: Status: Chronic Qualifiers: Atrial fibrillation type: longstanding persistent Qualified Code(s): I48.11 - Longstanding persistent atrial fibrillation Category: Medical Code(s): I48.91 - Unspecified atrial fibrillation (3) CAD (coronary artery disease): Status: Chronic Qualifiers: Associated angina: with unspecified form of angina Coronary Disease-Associated Artery/Lesion type: [place] artery [place] vs. transplanted heart: [place] heart Qualified Code(s): I25.119 - Atherosclerotic heart disease of [place] coronary artery with unspecified angina pectoris Category: Medical Code(s): I25.10 - Atherosclerotic heart disease of [place] coronary artery without angina pectoris (4) Tachy-gerry syndrome: Status: Acute Category: Medical Code(s): I49.5 - Sick sinus syndrome Plan Hypertensive emergency -New diagnosis this admission as historically blood pressure well-controlled on low-dose meds, presented here with BP greater than 230 with associated chest pain -Improving to 150s. Primary service already increased home meds and is weaning off Cardene drip -Plan: Check renal duplex, consider left heart cath as this was associated with chest pain CAD with class IV angina pectoris -Known CAD with prior stenting, last cath 2021 showed patent stents -Normal serial troponin here, EKG is V paced -Patient's chest pain occurs when blood pressure is elevated so this may be vasospasm -Plan: Continue efforts at BP control. Continue Eliquis beta-patricia Plavix statin. Consider C this admission PAF/SSS s/p PPPM - last download was 10/2023 remote check and showed RVPacing 94% with 16 seconds NSVT noted on 10/25/23 - Plan: will interrogate device and check ECHO for change in EF COPD - wheezing here - Plan: per Hospitalist 02/04 CV summary: CV stable, further plans pending results of ECHO and Renal Duplex 02/04 Addendum: PPM interrogation shows no VT. ECHO pending. Discussed treatment options with patient. Given his hx of MV-CAD and worsening episodes of angina improved with Ntg and now rising BP up to 230 he would benefit from LHC and Renal Angio this admission. High pre-test probability negates stress imaging and renal duplex. Pt agreeable. Will be NPO after midnight and do both procedures tomorrow.
--- NOTE | 2024-02-05 17:48 | PC.NURSE ---
pt has been resting in bed throughout shift. pt has had no complaints throughout shift. pt remains on room air. blood pressures have been high 150s over mid 90s. pt is scheduled for heart cath tomorrow morning. no new orders at this time. call light within reach.
--- NOTE | 2024-02-05 17:49 | P.HP_ITS ---
History of Present Illness *Admission Date: 02/04/24 *Reason for visit:: elevated blood pressure *History of present illness: Mr. Kim is a patient of Dr. Linton with longstanding hypertensive cardiovascular disease. He presented in the emergency room because he was feeling badly and his blood pressure was found to be elevated at home. He was admitted from the emergency room and placed on nicardipine drip. His blood pressure came down he remained stable overnight. Cardiology was consulted and they have not yet seen him this morning. His blood pressure remained stable. My plan is to discharge him on his regular medications except that amlodipine will be increased to 5 mg. [facility] Disclaimer: The information contained in this section may have been updated after the patient was seen, as this information can be updated by other users. 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 pause group home current use 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 therapy HTN (hypertension) HLD (hyperlipidemia) RHONDA (renal artery stenosis) Dyspnea Edema Congestive heart failure COPD (chronic obstructive pulmonary disease) CAD (coronary artery disease) Surgical History History of cholecystectomy History of renal stent Family History Sister Breast cancer Son Diabetes Sister Leukemia Social History Smoking Status: Former smoker tobacco type: cigarettes packs per day: 1 years smoked: 35 second hand exposure: No alcohol intake: never counseling provided: none substance use type: denies use current occupational status: retired Travel in the last 8 weeks: Inside the [place] household members: children housing: house current occupational exposures/hazards: No caffeine: Yes Review of Systems Review of Systems Review of systems:: pertinent systems reviewed and negative unless documented below Constitutional Constitutional: Reports as per HPI, Denies anorexia, Denies chills and Denies weakness Eyes Eyes: Reports system reviewed and no additional complaints, except as documented and Denies loss of vision ENT Ears, Nose, Mouth, and Throat: Reports system reviewed and no additional complaints, except as documented and Denies vertigo *Cardiovascular Cardiovascular: Reports chest pain, Reports chest pain with activity, Reports dyspnea, Reports dyspnea on exertion and Denies syncope *Respiratory Respiratory: Reports dyspnea and Reports dyspnea on exertion *Gastrointestinal Gastrointestinal: Reports system reviewed and no additional complaints, except as documented, Denies abdominal pain and Denies change in bowel habits *Genitourinary Genitourinary: Reports system reviewed and no additional complaints, except as documented and Denies difficulty urinating *Musculoskeletal Musculoskeletal: Reports joint swelling (hx arthritis) Integumentary/Breasts Skin/Breast: Reports system reviewed and no additional complaints, except as documented *Neurologic Neurologic: Reports system reviewed and no additional complaints, except as documented, Denies loss of vision, Denies syncope, Denies vertigo and Denies weakness Psychiatric Psychiatric: Reports system reviewed and no additional complaints, except as documented Endocrine Endocrine: Reports system reviewed and no additional complaints, except as documented Hematologic/Lymphatic Hematologic/Lymphatic: Reports system reviewed and no additional complaints, except as documented Allergic/Immunologic Allergic/Immunologic: Reports system reviewed and no additional complaints, except as documented Meds Home Medications and Allergies Home Medications Medication Instructions Recorded Confirmed Type atorvastatin 80 mg tablet 80 mg PO HS 09/10/17 02/04/24 History tamsulosin 0.4 mg capsule 0.8 mg PO DAILY 09/10/17 02/05/24 History apixaban 5 mg tablet (Eliquis) 5 mg PO BID 01/29/18 02/05/24 History gabapentin 300 mg capsule 300 mg PO BID 01/20/20 02/05/24 History fluticasone fur. 100 mcg-umeclid 1 puff inhalation DAILY 05/15/20 02/05/24 History 62.5 mcg-vilant 25 mcg inhalat.powder metformin 500 mg tablet,extended 1,000 mg PO DAILY 11/29/20 02/05/24 History release 24 hr famotidine 40 mg tablet 40 mg PO HS 05/07/23 02/05/24 History ferrous sulfate 325 mg (65 mg 325 mg PO DAILY 05/07/23 02/05/24 History iron) tablet (FeroSul) lisinopril 5 mg tablet 5 mg PO DAILY 08/09/23 02/05/24 History omeprazole 20 mg capsule,delayed 20 mg PO DAILY 11/08/23 02/05/24 History release amlodipine 2.5 mg tablet 2.5 mg PO DAILY 02/04/24 02/05/24 History clopidogrel 75 mg tablet 75 mg PO DAILY 02/04/24 02/05/24 History carvedilol 3.125 mg tablet 3.125 mg PO BID 02/05/24 02/05/24 History nitroglycerin 0.4 mg sublingual 0.4 mg sublingual Q5MINP PRN chest 02/05/24 02/05/24 History tablet pain New Prescriptions to Start Prescriptions: Allergies Allergy/AdvReac Type Severity Reaction Status Date / Time Penicillins Allergy Verified 11/08/23 09:16 Exam Data for Last 24 hours Vital signs and Labs for Last 24 Hours: Temp Pulse Resp BP Pulse Ox O2 Del Method 98.5 F 70 16 163/91 H 96 Room Air 02/05/24 16:00 02/05/24 16:00 02/05/24 16:00 02/05/24 16:00 02/05/24 16:00 02/05/24 17:00 Laboratory Results - last 24 hr 02/04/24 21:15: Troponin I < 0.01 02/05/24 03:41: Troponin I 0.01 02/05/24 05:36: WBC 7.8, RBC 4.22 L, Hgb 12.3 L, Hct 38.6 L, MCV 91.6, MCH 29.1, MCHC 31.8, RDW 15.5, Plt Count 165, MPV 11.3 H, Neut % (Auto) 72.5, Lymph % (Auto) 18.5, Cooper % (Auto) 7.6, Eos % (Auto) 1.0, Baso % (Auto) 0.4, Neut # (Auto) 5.6, Lymph # (Auto) 1.4, Cooper # (Auto) 0.6, Eos # (Auto) 0.1, Baso # (Auto) 0.0, Sodium 140, Potassium 4.0, Chloride 109 H, Carbon Dioxide 25, Anion Gap 10.0, BUN 18, Creatinine 1.10, Estimated Creat Clear 51, Estimated GFR 64, Est GFR ( Amer) 77 D, Glucose 108 H D, Calcium 9.1 I & O for Last 24 hours: Intake & Output 02/03/24 02/04/24 02/05/24 02/06/24 11:59 11:59 11:59 11:59 Intake Total 1257.916 / 1257.916 600 / 600 Output Total 350 / 350 0 / 0 Balance 907.916 / 907.916 600 / 600 Weight 157 lb 9.6 oz Constitutional Constitutional: no acute distress (resting in bed at time of exam) *Routine HEENT Exam Head: Present normocephalic Eye: Present PERRL ENT: Present mucous membranes moist *Routine Neck Exam Neck: Present supple and full ROM Routine Chest/Breast/Axilla Exam Chest wall: Present pacemaker *Routine Respiratory Exam Respiratory: Present decreased breath sounds *Routine Cardiovascular Exam Cardiovascular: Present RRR; Absent ectopic *Routine Abdominal Exam Abdominal: Present soft; Absent tenderness or organomegaly *Routine Rectal Exam Rectal:: deferred *Routine Genitalia Exam Genitalia:: deferred *Routine Extremities Exam Extremities: Absent edema Routine Back/Spine/Pelvis Exam Back/Spine: Absent CVA tenderness *Routine Skin Exam Skin: Present intact ([place] complection) *Routine Neurological Exam Neurological: Present moving all extremities and normal speech; Absent motor deficit or altered mental status Routine Psychiatric Exam Psychiatric: Present normal affect, normal thought process and cooperative Assessment and Plan *Assessment and plan (1) Hypertensive emergency: Status: Acute Category: Medical Code(s): I16.1 - Hypertensive emergency (2) Chest fullness: Status: Acute Category: Medical Code(s): R07.89 - Other chest pain (3) Atypical chest pain: Status: Acute Category: Medical Code(s): R07.89 - Other chest pain (4) PAD (peripheral artery disease): Status: Chronic Category: Medical Code(s): I73.9 - Peripheral vascular disease, unspecified (5) Presence of cardiac pacemaker: Status: Chronic Category: Medical Code(s): Z95.0 - Presence of cardiac pacemaker (6) DM2 (diabetes mellitus, type 2): Status: Chronic Qualifiers: Diabetes mellitus longterm insulin use: without terminal supervisor use Diabetes mellitus complication status: with neurologic complications Diabetes mellitus complication detail: with polyneuropathy Qualified Code(s): E11.42 - Type 2 diabetes mellitus with diabetic polyneuropathy Category: Medical Code(s): E11.9 - Type 2 diabetes mellitus without complications (7) CAD (coronary artery disease): Status: Chronic Qualifiers: Associated angina: with unspecified form of angina Coronary Disease- Associated Artery/Lesion type: [place] artery [place] vs. transplanted heart: [place] heart Qualified Code(s): I25.119 - Atherosclerotic heart disease of [place] coronary artery with unspecified angina pectoris Category: Medical Code(s): I25.10 - Atherosclerotic heart disease of [place] coronary artery without angina pectoris (8) group home current use 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 therapy: Status: Chronic Category: Medical Code(s): Z79.01 - group home (current) use 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s (9) HTN (hypertension): Status: Chronic Qualifiers: Hypertension type: essential hypertension Qualified Code(s): I10 - Essential (primary) hypertension Category: Medical Code(s): I10 - Essential (primary) hypertension Plan BP has stabilized. See Cardiology evaluation. Further evaluation is recommended. Cath scheduled for tomorrow.
--- NOTE | 2024-02-05 18:10 | PC.NURSE ---
pt complaining of chest tightness, does not radiate, bp 140/82 heart rate 70, ekg ordered.
--- NOTE | 2024-02-05 18:30 | ECG_ITS ---
APPROVED REPORT Exam: Resting ECG HR:70 bpm ECG Measurements Heart Rate 70 AXES QRSd 150 QRS 263 QT 460 T 85 QTc 480 Conclusion ELECTRONIC VENTRICULAR PACEMAKER ABNORMAL RHYTHM ECG UNCONFIRMED REPORT Electronically signed by : Rikki Stewart MD 02/07/2024 08:32:56
--- NOTE | 2024-02-05 18:55 | PC.NURSE ---
ekg taken to er doctor, new troponin ordered
[2024-02-05 19:58] LABS: Troponin I < 0.01 ng/ml (0.00-0.034)
[2024-02-05] MEDS: ATORVASTATIN 40MG TABLET 80 MG PO (20:41)
[2024-02-06] VITALS (20 sets, daily range): BP systolic 125–184; BP diastolic 54–87; PULSE 66–95; RESP 16–18; TEMP 36.6–37.4; O2SAT 92–98; BMI 26.1; BMI 26.0
[2024-02-06] MEDS: ALBUTEROL-HFA 90MCG/PUFF INHALER 8GM 2 PUFF IH ×4 (06:16→23:11)
--- NOTE | 2024-02-06 07:54 | P.PN_ITS ---
Subjective *Date: 02/06/24 *Time: 07:54 Interval history: Patient states that he is going for heart cath this a.m. He also states that he had chest pain about 30 minutes ago lasting about 5 minutes and did not tell anyone. He is comfortable now. He states his blood pressure was up all day yesterday. He denies shortness of breath. He is eating without problems. He is n.p.o. for the heart cath this morning. He was up in the room and had his a.m. care at the sink. Medical Exam Vital signs and Labs for Last 24 Hours: Vital Signs Temp Pulse Pulse Resp BP Pulse Ox O2 Del Method 02/06/24 06:37 Room Air 02/06/24 05:00 Room Air 02/06/24 04:00 99.4 F 70 16 165/76 H 97 Room Air 02/06/24 04:00 70 02/06/24 03:00 Room Air 02/06/24 01:00 Room Air 02/06/24 00:00 98.0 F 70 16 125/54 L 94 L Room Air 02/06/24 00:00 70 02/05/24 23:00 Room Air 02/05/24 21:00 Room Air 02/05/24 20:00 Room Air 02/05/24 20:00 80 02/05/24 20:00 98.1 F 70 18 140/74 96 02/05/24 18:56 Room Air 02/05/24 18:09 70 140/82 97 Room Air 02/05/24 17:00 Room Air 02/05/24 16:00 70 02/05/24 16:00 98.5 F 70 16 163/91 H 96 Room Air 02/05/24 15:00 Room Air 02/05/24 14:00 70 20 132/67 93 L Room Air 02/05/24 13:00 Room Air 02/05/24 12:00 70 02/05/24 12:00 98.3 F 70 22 180/101 H 97 Room Air 02/05/24 11:00 Room Air 02/05/24 10:00 70 22 171/97 H 96 Room Air 02/05/24 09:00 70 22 158/90 H 93 L Room Air 02/05/24 09:00 Room Air 02/05/24 08:00 98.0 F 02/05/24 08:00 70 20 154/102 H 95 Room Air 02/05/24 08:00 Room Air 02/05/24 08:00 70 Intake and Output 02/05/24 02/06/24 02/06/24 19:59 03:59 11:59 Intake Total 840 / 840 240 / 1080 Output Total 0 / 0 0 / 0 Balance 840 / 840 240 / 1080 Intake: Intake, Oral Amount 840 / 840 240 / 1080 Output: Output, Urine Amount 0 / 0 0 / 0 Other: Number of Unmeasured Voids 1 Number of Bowel Movements 1 Weight 162 lb 6.4 oz Patient Weight 02/06/24 11:59 Weight 162 lb 6.4 oz Laboratory Results - last 24 hr 02/05/24 19:18: Troponin I < 0.01 I & O for Labs for Last 24 Hours: Intake & Output 02/03/24 02/04/24 02/05/24 02/06/24 11:59 11:59 11:59 11:59 Intake Total 1257.916 / 6678.317 0838 / 1080 Output Total 350 / 350 0 / 0 Balance 907.916 / 062.698 4958 / 1080 Weight 157 lb 9.6 oz 162 lb 6.4 oz Respiratory: Present CTA bilaterally (Anteriorly and posteriorly) Cardiac: Present Regular Rhythm GI: Present soft and normal bowel sounds; Absent distention, tenderness or guarding Extremities: Absent tenderness, edema or calf tenderness Assessment and Plan *Assessment and plan (1) Hypertensive emergency: Status: Acute Category: Medical Code(s): I16.1 - Hypertensive emergency (2) Chest fullness: Status: Acute Category: Medical Code(s): R07.89 - Other chest pain (3) Atypical chest pain: Status: Acute Category: Medical Code(s): R07.89 - Other chest pain (4) PAD (peripheral artery disease): Status: Chronic Category: Medical Code(s): I73.9 - Peripheral vascular disease, unspecified (5) Presence of cardiac pacemaker: Status: Chronic Category: Medical Code(s): Z95.0 - Presence of cardiac pacemaker (6) DM2 (diabetes mellitus, type 2): Status: Chronic Qualifiers: Diabetes mellitus terminologist insulin use: without shelter use Diabetes mellitus complication status: with neurologic complications Diabetes mellitus complication detail: with polyneuropathy Qualified Code(s): E11.42 - Type 2 diabetes mellitus with diabetic polyneuropathy Category: Medical Code(s): E11.9 - Type 2 diabetes mellitus without complications (7) CAD (coronary artery disease): Status: Chronic Qualifiers: Associated angina: with unspecified form of angina Coronary Disease- Associated Artery/Lesion type: [place] artery [place] vs. transplanted heart: [place] heart Qualified Code(s): I25.119 - Atherosclerotic heart disease of [place] coronary artery with unspecified angina pectoris Category: Medical Code(s): I25.10 - Atherosclerotic heart disease of [place] coronary artery without angina pectoris (8) long term care administrator current use 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 therapy: Status: Chronic Category: Medical Code(s): Z79.01 - assisted (current) use 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s (9) HTN (hypertension): Status: Chronic Qualifiers: Hypertension type: essential hypertension Qualified Code(s): I10 - Essential (primary) hypertension Category: Medical Code(s): I10 - Essential (primary) hypertension Plan Cardiology is following. He will have a cardiac cath this a.m.
[2024-02-06] MEDS: MAGNESIUM OXIDE 400MG TABLET 400 MG PO ×2 (08:32→21:23)
[2024-02-06] MEDS: CARVEDILOL 6.25MG TABLET 6.25 MG PO ×2 (08:32→21:22)
[2024-02-06] MEDS: GABAPENTIN 300MG CAPSULE 300 MG PO ×2 (08:32→21:23)
[2024-02-06] MEDS: AMLODIPINE 5MG TABLET 5 MG PO (08:32)
[2024-02-06] MEDS: LISINOPRIL 5MG TABLET 5 MG PO (08:32)
[2024-02-06] MEDS: TAMSULOSIN 0.4MG CAPSULE 0.4 MG PO ×2 (08:32→21:22)
--- NOTE | 2024-02-06 09:00 | IR_ITS ---
APPROVED REPORT Patient Location: Inpatient PROCEDURES Left heart catheterization Left ventriculogram Selective coronary angiogram Bilateral selective renal angiography Bare-metal stent deployment to the ostial proximal left renal artery followed by drug eluting stent deployment to the distal left segmental branch of the left renal artery INDICATION Angina pectoris, Coronary artery disease, Malignant hypertension, Renal artery stenosis, Renovascular hypertension Informed consent was obtained prior to the procedure. COMPLICATIONS NONE Estimated Blood Loss: LESS THAN 10 ML TECHNIQUE One percent lidocaine used to anesthetize the right anterior aspect of the wrist. The right radial artery was accessed via the Seldinger technique. A long hydrophilic 25 cm 6 Welsh sheath was placed in the right radial artery. 2.5 mg of Verapamil, 800 mcg of nitroglycerin, 1mg Lidocaine and 5000 U Heparin were given through the arterial sheath. The papa catheter was also used to perform left heart catheterization, left ventriculogram and selective coronary angiogram. At the end of the diagnostic angiogram the guide catheter was advanced and bilateral selective renal angiography was performed. There was a critical stenosis in the superior branch of the left renal artery. The left kidney had a dual arterial supply with each branch supplying 50% of the kidney. Therapeutic heparin was administered giving a therapeutic ACT and the guide catheter was placed in the superior branch of the left kidney. A Choice PT extra-support wire was placed distally. A 6 mm x 18 mm Herculink stent was deployed as high as 20 kashif try to reduce the ostial stenosis. The stenosis did not completely reduce. A dissection was identified distal to the stent therefore a 6 mm x 12 mm Herculink stent was deployed at 12 kashif distal to the for stent yet still overlapping it. There appeared to be further dissection versus significant filling defect in the superior branch of the left renal artery which was supplying between 5 and 10% of the left renal parenchyma. The Choice PT extra-support wire was placed distally and a 3 mm x 12 mm [place] frontier stent was deployed at 14 kashif. This failed to restore flow to the proximal segment. Angiography demonstrated there was a dissection in the inferior branch which supplied 40% of the kidney therefore the wire was placed into the inferior branch and a 3 mm x 15 mm [place] frontier stent was deployed at 14 kashif reducing the stenosis. Excellent flow was present distally. Following this the apparatus was removed the sheath was removed and hemostasis was achieved using TR banding patient was transferred to the postop holding in stable condition ANGIOGRAPHIC RESULTS The left main artery Has ostial proximal 10 to 20% stenosis The left anterior descending artery Is calcified in the ostial proximal segment with no stenosis greater than 10%. There are additional 10 to 20% mid vessel stenoses The circumflex artery Nondominant with a 40% stenosis and a medium sized first obtuse marginal artery The right coronary artery Is dominant and has proximal 40 followed by 50% stenosis The HYATT ventriculogram reveals Preserved 60% The left ventricular end-diastolic pressure 10 mmHg Right renal artery singular and has an ostial proximal 30 to 40% nonflow limiting stenosis Left kidney has a dual arterial supply with each branch supplying approximately 50% of the left kidney. The superior branch of the left kidney has an calcified ostial proximal 80 to 90% stenosis accompanied by slow flow. Following revascularization there appeared to be a dissection into the distal inferior and superior segments. Superior branch which supplied 10% was stented however flow was not restored. This inferior branch supplying 40% of the kidney was widely patent following stenting The inferior branch of the left kidney which supplies 50% of the kidney has an ostial 40% stenosis IMPRESSION Coronary disease as described above Preserved ejection fraction Normal left ventricular end-diastolic pressure Severe left renal artery stenosis as described above Partially successful stent to the left renal artery as described above PLAN 1. Dual antiplatelet therapy for 6 months 2. Medical management for coronary disease 3. Control of essential and secondary hypertension 4. Supportive care in the event left flank pain is experienced as a result of losing the superior 10% of the left kidney 5. LDL less than 55 to be achieved with high intensity statin Electronically signed by : Emery Odom MD 02/06/2024 14:57:51
[2024-02-06] MEDS: HEPARIN 1,000 UNITS/500ML NS (CATH LAB) 3000 UNIT IV (13:13)
[2024-02-06] MEDS: NITROGLYCERIN 800MCG/8ML SYR (CATH LAB) 800 MCG IA (13:14)
[2024-02-06] MEDS: 0.9 % SODIUM CHLORIDE 500 ML 25 ML IV (13:14)
[2024-02-06] MEDS: diphenhydrAMINE 50MG/ML VIAL 50 MG IV (13:14)
[2024-02-06] MEDS: LIDOCAINE 1% 10ML MDV 20 ML IJ (13:14)
[2024-02-06] MEDS: VERAPAMIL 2.5MG/ML 2ML VIAL 2.5 MG IV (13:14)
[2024-02-06] MEDS: HEPARIN 1,000 UNITS/ML 10ML VIAL (CATH LAB) 10000 UNIT IV (13:14)
[2024-02-06] MEDS: MIDAZOLAM HCL 1MG/1ML 5ML VIAL 1 MG IV (13:21)
[2024-02-06] MEDS: FENTANYL 100MCG/2ML VIAL 25 MCG IV (13:22)
[2024-02-06] MEDS: IOPAMIDOL-370 (76%);100ML BOTTLE 120 ML IV (14:27)
[2024-02-06 14:29] LABS: CATHL Activated Clotting Time 258 SEC (74-125)
[2024-02-06] MEDS: CLOPIDOGREL 300MG TABLET 600 MG PO (15:17)
[2024-02-06] MEDS: METFORMIN 500MG TABLET 500 MG PO (17:18)
--- NOTE | 2024-02-06 18:03 | PC.NURSE ---
A&OX4. TOLERATING RA WELL. UNDERWENT CATH TODAY, TOLERATED PROCEDURE WELL. R RADIAL SITE WITH DRESSING IN PLACE, CDI. PT USING URINAL TO VOID AT THIS TIME. HAS REMAINED IN BED RESTING MAJORITY OF SHIFT. FAMILY AT BEDSIDE. NO NEEDS OR C/O NOTED THUS FAR, VSS.
[2024-02-06] MEDS: ONDANSETRON 4MG/2ML VIAL 4 MG IV (21:03)
[2024-02-06] MEDS: ATORVASTATIN 40MG TABLET 80 MG PO (21:22)
[2024-02-06] MEDS: APIXABAN 5MG TABLET 5 MG PO (21:23)
[2024-02-06] MEDS: PANTOPRAZOLE 40MG TABLET 40 MG PO (21:23)
[2024-02-07] VITALS (8 sets, daily range): BP systolic 137–160; BP diastolic 66–95; PULSE 70–71; RESP 16–18; TEMP 36.7–37.1; O2SAT 90–95; BMI 25.0
--- NOTE | 2024-02-07 04:18 | PC.NURSE ---
Pt had some issues with N/V early in shift. He was medicated with zofran IVP and family provided him with chicken salad sand. He began coughing and gagging again later in the shift and reported vomiting however automobile service writer assessed more mucus like return. Pt was repositioned and rested comfortably the remainder of the shift.
[2024-02-07] MEDS: ALBUTEROL-HFA 90MCG/PUFF INHALER 8GM 2 PUFF IH ×2 (05:58→11:21)
[2024-02-07] MEDS: FLUTICASONE/UMECLIDIN/VILANTER 100/62.5/25MCG INHALER 1 PUFF IH (05:58)
[2024-02-07 07:21] LABS: Anion Gap 10.4 mEq/L (5-15); Blood Urea Nitrogen 18 mg/dl (9-20); Calcium 8.8 mg/dl (8.4-10.2); Carbon Dioxide 28 mmol/L (22.0-30.0); Chloride 104 mmol/L (98-107); Creatinine Clearance Estimated 39 mL/min (50-200); Estimated Glomerular Filt Rate 48 ml/min (>60); GFR (African American) 58 ML/MIN (>60); Glucose 127 mg/dl (74-100); Potassium 4.4 mmoL/L (3.5-5.1); Sodium 138 mmol/L (136-145)
[2024-02-07 07:22] LABS: Basophils % 0.2 % (0.1-2.0); Eosinophils % 0.3 % (0.1-12.0); Hematocrit 29.2 % (42.0-52.0); Hemoglobin 11.5 g/dL (14.1-18.0); Lymphocytes # 1.8 K/mm3 (0.7-4.5); Lymphocytes % 15.1 % (10-50); Mean Corpuscular HGB Conc 39.6 g/dL (31.8-35.4); Mean Corpuscular Hemoglobin 36.6 pg (27.0-31.2); Mean Corpuscular Volume 92.6 fl (80-94); Mean Platelet Volume 10.7 fl (7.4-10.4); Monocytes # 0.7 K/mm3 (0.1-1.0); Neutrophils # 9.3 K/mm3 (1.8-7.8); Neutrophils % 78.4 % (37.0-80.0); Platelet Count 145 K/mm3 (142-424); Red Blood Count 3.15 M/mm3 (4.60-6.20); Red Cell Distribution Width 15.8 % (11.5-17.5); White Blood Count 11.9 K/mm3 (4.8-10.8)
--- NOTE | 2024-02-07 08:08 | P.PN_ITS ---
Subjective *Date: 02/07/24 *Time: 08:49 Interval history: Patient states he's feeling better this am. He denies any pain. He did get choked last night and had some vomiting. He is a little nauseated after eating this am but was able to eat breakfast. He wants to go home. Medical Exam Vital signs and Labs for Last 24 Hours: Vital Signs Temp Pulse Pulse Pulse Resp BP BP 02/07/24 07:53 98.1 F 70 17 151/66 H 02/07/24 06:48 02/07/24 06:02 02/07/24 05:00 02/07/24 04:00 98.7 F 71 16 144/71 H 02/07/24 04:00 70 02/07/24 03:00 02/07/24 01:00 02/07/24 00:00 70 02/07/24 00:00 98.7 F 70 16 141/68 H 02/06/24 23:00 02/06/24 21:00 02/06/24 20:00 70 02/06/24 20:00 99 F 71 18 177/76 H 02/06/24 19:57 02/06/24 19:00 98.1 F 68 16 154/64 H 02/06/24 18:42 02/06/24 18:00 98.0 F 70 17 150/63 H 02/06/24 17:30 98.0 F 85 17 166/64 H 02/06/24 17:00 98.3 F 70 17 181/82 H 02/06/24 16:48 02/06/24 16:30 98.2 F 70 16 182/78 H 02/06/24 16:00 70 02/06/24 15:30 98.0 F 70 16 173/79 H 02/06/24 15:15 02/06/24 15:15 98.2 F 67 17 183/80 H 02/06/24 15:00 98.2 F 71 18 184/79 H 02/06/24 14:45 70 167/85 H 02/06/24 14:30 70 161/87 H 02/06/24 14:25 70 160/83 H 02/06/24 14:20 66 18 129/73 02/06/24 14:15 97.9 F 70 70 17 157/85 H 02/06/24 13:00 07/09/24 12:00 70 02/06/24 12:00 98.5 F 95 H 17 154/70 H 02/06/24 10:41 02/06/24 09:00 Pulse Ox O2 Del Method 02/07/24 07:53 95 Room Air 02/07/24 06:48 Room Air 02/07/24 06:02 95 Room Air 02/07/24 05:00 Room Air 02/07/24 04:00 90 L Room Air 02/07/24 04:00 02/07/24 03:00 Room Air 02/07/24 01:00 Room Air 02/07/24 00:00 02/07/24 00:00 92 L Room Air 02/06/24 23:00 Room Air 02/06/24 21:00 Room Air 02/06/24 20:00 02/06/24 20:00 97 Room Air 02/06/24 19:57 97 Room Air 02/06/24 19:00 97 Room Air 02/06/24 18:42 Room Air 02/06/24 18:00 96 Room Air 02/06/24 17:30 97 Room Air 02/06/24 17:00 96 Room Air 02/06/24 16:48 Room Air 02/06/24 16:30 95 Room Air 02/06/24 16:00 02/06/24 15:30 96 Room Air 02/06/24 15:15 Room Air 02/06/24 15:15 96 Room Air 02/06/24 15:00 98 Room Air 02/06/24 14:45 92 L Room Air 02/06/24 14:30 92 L Room Air 02/06/24 14:25 92 L Room Air 02/06/24 14:20 92 L Room Air 02/06/24 14:15 95 Room Air 02/06/24 13:00 Room Air 02/06/24 12:00 02/06/24 12:00 96 Room Air 02/06/24 10:41 Room Air 02/06/24 09:00 Room Air Intake and Output 02/06/24 02/07/24 02/07/24 19:59 03:59 11:59 Intake Total 270 / 510 240 / 510 Output Total 150 / 350 200 / 350 0 / 350 Balance 120 / 160 40 / 160 0 / 160 Intake: Intake, Oral Amount 270 / 510 240 / 510 Output: Output, Urine Amount 150 / 150 0 / 150 0 / 150 Output, Emesis Amount 200 / 200 Other: Number of Unmeasured Voids 1 1 1 Number of Bowel Movements 1 Weight 156 lb Patient Weight 02/07/24 11:59 Weight 156 lb Laboratory Results - last 24 hr 02/06/24 13:40: Activated Clotting Time 258 H* 02/07/24 06:50: WBC 11.9 H D, RBC 3.15 L D, Hgb 11.5 L, Hct 29.2 L, MCV 92.6, MCH 36.6 H D, MCHC 39.6 H, RDW 15.8, Plt Count 145, MPV 10.7 H, Neut % (Auto) 78.4, Lymph % (Auto) 15.1, [place] % (Auto) 6.0, Eos % (Auto) 0.3, Baso % (Auto) 0.2, Neut # (Auto) 9.3 H, Lymph # (Auto) 1.8, [place] # (Auto) 0.7, Eos # (Auto) 0.0, Baso # (Auto) 0.0, Sodium 138, Potassium 4.4, Chloride 104, Carbon Dioxide 28, Anion Gap 10.4, BUN 18, Creatinine 1.40 H D, Estimated Creat Clear 39, Estim ated GFR 48 L, Est GFR ( Amer) 58 L D, Glucose 127 H, Calcium 8.8 I & O for Labs for Last 24 Hours: Intake & Output 02/04/24 02/05/24 02/06/24 02/07/24 11:59 11:59 11:59 11:59 Intake Total 1257.916 / 7374.963 8061 / 1080 510 / 510 Output Total 350 / 350 0 / 0 350 / 350 Balance 907.916 / 284.112 0536 / 1080 160 / 160 Weight 157 lb 9.6 oz 162 lb 4.163 oz 156 lb Constitutional: Present no acute distress Respiratory: Present CTA bilaterally Cardiac: Present Reg Rate and Rhythm GI: Present soft and tenderness (epigastric area); Absent distention Extremities: Absent edema Skin: Present intact Neuro: Present alert, awake and oriented x 3 Assessment and Plan *Assessment and plan (1) Hypertensive emergency: Status: Acute Category: Medical Code(s): I16.1 - Hypertensive emergency (2) Chest fullness: Status: Acute Category: Medical Code(s): R07.89 - Other chest pain (3) Atypical chest pain: Status: Acute Category: Medical Code(s): R07.89 - Other chest pain (4) PAD (peripheral artery disease): Status: Chronic Category: Medical Code(s): I73.9 - Peripheral vascular disease, unspecified (5) Presence of cardiac pacemaker: Status: Chronic Category: Medical Code(s): Z95.0 - Presence of cardiac pacemaker (6) DM2 (diabetes mellitus, type 2): Status: Chronic Qualifiers: Diabetes mellitus complication detail: with polyneuropathy Diabetes mellitus complication status: with neurologic complications 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 Patient is anxious for discharge. Cardiology to follow. BP has improved. Dr. Quan entry - Saw patient, renal artery stent placed yesterday, creatinine is higher today. Patient to receive IV fluids now.
[2024-02-07] MEDS: METFORMIN 500MG TABLET 500 MG PO (08:30)
[2024-02-07] MEDS: AMLODIPINE 5MG TABLET 5 MG PO (08:42)
[2024-02-07] MEDS: APIXABAN 5MG TABLET 5 MG PO (08:42)
[2024-02-07] MEDS: CLOPIDOGREL 75MG TAB 75 MG PO (08:43)
[2024-02-07] MEDS: TAMSULOSIN 0.4MG CAPSULE 0.4 MG PO (08:43)
[2024-02-07] MEDS: CARVEDILOL 6.25MG TABLET 6.25 MG PO (08:43)
[2024-02-07] MEDS: MAGNESIUM OXIDE 400MG TABLET 400 MG PO (08:43)
[2024-02-07] MEDS: GABAPENTIN 300MG CAPSULE 300 MG PO (08:43)
[2024-02-07] MEDS: ASPIRIN EC 81MG TABLET 81 MG PO (08:43)
[2024-02-07] MEDS: LISINOPRIL 5MG TABLET 5 MG PO (08:43)
[2024-02-07] MEDS: 0.9 % SODIUM CHLORIDE 1000ML 1,000 ML 200 ML IV (08:47)
--- NOTE | 2024-02-07 14:42 | EXP.CARD.PN ---
Subjective Subjective Date: 02/07/24 Time: 10:00 Interval history: Left heart cath yesterday revealed nonflow limiting disease. He had severe stenosis of left renal artery which was revascularized but he did have small procedural complication with dissection of superior branch which reduced flow to upper 10% of left kidney. Today states he is feeling well with no chest pain shortness of breath or flank pain. His creatinine is up slightly to 1.4 Exam Data for Last 24 hours Vital signs and Labs for Last 24 Hours: Temp Pulse Resp BP Pulse Ox O2 Del Method 98.2 F 70 18 137/95 H 95 Room Air 02/07/24 12:00 02/07/24 12:00 02/07/24 12:00 02/07/24 12:00 02/07/24 12:00 02/07/24 13:00 Laboratory Results - last 24 hr 02/07/24 06:50: WBC 11.9 H D, RBC 3.15 L D, Hgb 11.5 L, Hct 29.2 L, MCV 92.6, MCH 36.6 H D, MCHC 39.6 H, RDW 15.8, Plt Count 145, MPV 10.7 H, Neut % (Auto) 78.4, Lymph % (Auto) 15.1, [place] % (Auto) 6.0, Eos % (Auto) 0.3, Baso % (Auto) 0.2, Neut # (Auto) 9.3 H, Lymph # (Auto) 1.8, [place] # (Auto) 0.7, Eos # (Auto) 0.0, Baso # (Auto) 0.0, Sodium 138, Potassium 4.4, Chloride 104, Carbon Dioxide 28, Anion Gap 10.4, BUN 18, Creatinine 1.40 H D, Estimated Creat Clear 39, Estimated GFR 48 L, Est GFR ( Amer) 58 L D, Glucose 127 H, Calcium 8.8 I & O for Last 24 hours: Intake & Output 02/04/24 02/05/24 02/06/24 02/07/24 23:59 23:59 23:59 23:59 Intake Total 37.916 / 159.606 3148 / 2300 510 / 750 725 / 725 Output Total 350 / 350 0 / 0 150 / 350 200 / 200 Balance -312.084 / 007.828 7070 / 2300 360 / 400 525 / 525 Weight 157 lb 9.6 oz 157 lb 9.6 oz 162 lb 4.163 oz 156 lb Constitutional Constitutional: no acute distress and cooperative *Routine HEENT Exam Eye: Present PERRL *Routine Respiratory Exam Respiratory: Present CTA bilaterally; Absent accessory muscle use, wheezes or crackles *Routine Cardiovascular Exam Cardiovascular: Present RRR, Normal S1 and Normal S2; Absent murmur, gallop or rubs *Routine Abdominal Exam Abdominal: Present soft; Absent tenderness *Routine Extremities Exam Extremities: Present pulses intact; Absent cyanosis or edema *Routine Skin Exam Skin: Present intact; Absent erythema or wounds *Routine Neurological Exam Neurological: Present alert and oriented X3 Routine Psychiatric Exam Psychiatric: Present cooperative Progress Note: A&P Assessment and plan (1) Hypertensive emergency: Status: Acute (2) RHONDA (renal artery stenosis): Status: Chronic (3) Chest fullness: Status: Acute (4) Atypical chest pain: Status: Acute (5) PAD (peripheral artery disease): Status: Chronic (6) Presence of cardiac pacemaker: Status: Chronic (7) DM2 (diabetes mellitus, type 2): Status: Chronic (8) CAD (coronary artery disease): Status: Chronic (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 Primary service already increased home meds and is weaning off Cardene drip -Renal angio this admission: Right renal artery singular and has an ostial proximal 30 to 40% nonflow limiting stenosis Left kidney has a dual arterial supply with each branch supplying approximately 50% of the left kidney. The superior branch of the left kidney has an calcified ostial proximal 80 to 90% stenosis accompanied by slow flow. Following revascularization there appeared to be a dissection into the distal inferior and superior segments. Superior branch which supplied 10% was stented however flow was not restored. This inferior branch supplying 40% of the kidney was widely patent following stenting The inferior branch of the left kidney which supplies 50% of the kidney has an ostial 40% stenosis - Cr up slightly to 1.4 - Plan: Cont DAPT, BB, JESSICA, Statin. Given 1L NS over 5 hours and repeat BMP. CAD with class IV angina pectoris -Known CAD with prior stenting, last cath 2021 showed patent stents -Normal serial troponin here, EKG is V paced -Patient's chest pain occurs when blood pressure is elevated so this may be vasospasm -[facility] this admission: non flow limiting disease -Plan: Cont home meds PAF/SSS s/p PPM - SR here - Download 02/05: RVPacing 94% with 16 seconds NSVT noted on 10/25/23 - cont Danial, BB COPD - wheezing here - Plan: per Hospitalist Addendum: Cr improved to 1.3 which is trending the right direction. He can DC from our standpoint and f/u with BMP and office visit in 1 week. Please advise if we can be of any further assistance prior to DC. CV DC Meds: ASA 81mg daily Plavix 75mg daily Eliquis 5mg BID Atorvastatin 80mg daily Coreg 6.25mg BID Lisinopril 5mg daily Amlodipine 5mg daily
[2024-02-07 15:03] LABS: Anion Gap 10.3 mEq/L (5-15); Blood Urea Nitrogen 19 mg/dl (9-20); Calcium 8.6 mg/dl (8.4-10.2); Carbon Dioxide 26 mmol/L (22.0-30.0); Chloride 105 mmol/L (98-107); Creatinine Clearance Estimated 42 mL/min (50-200); Estimated Glomerular Filt Rate 53 ml/min (>60); GFR (African American) 64 ML/MIN (>60); Glucose 113 mg/dl (74-100); Potassium 4.3 mmoL/L (3.5-5.1); Sodium 137 mmol/L (136-145)
--- NOTE | 2024-02-09 13:29 | CARE MANAGER ---
Contacted patient's daughter. She states he is doing better, but had to bring to the ER last night due to not urinating. They had to place a catheter and he went home with it and a follow up with Dr. Melendez on monday. They did get his new medications and denies any questions or concerns at this time. They are aware of follow up appointments as well.
--- NOTE | 2024-02-09 16:26 | EXP.DC.SUM ---
General Admission date:: 02/04/24 Discharge date: 02/08/24 HPI HPI HPI: Mr. Kim is a patient of Dr. Quan'delvis with longstanding hypertensive cardiovascular disease. He presented in the emergency room because he was feeling badly and his blood pressure was found to be elevated at home. He was admitted from the emergency room and placed on nicardipine drip. His blood pressure came down he remained stable overnight. Cardiology was consulted and they have not yet seen him this morning. His blood pressure remained stable. My plan is to discharge him on his regular medications except that amlodipine will be increased to 5 mg. Hospital Course Hospital Course Hospital Course: The patient's blood pressure stabilized. Cardiology saw the patient and felt he would need a heart cath. His heart cath showed a preserved ejection fraction within normal left ventricular end-diastolic pressure, however there was severe left renal artery stenosis and they were able to partially stent the left renal artery. The patient's left kidney had a dual arterial supply with each branch supplying approximately 50% of the left kidney. The superior branch had a calcified ostial proximal 80 to 90% stenosis accompanied by slow flow. Following revascularization there appeared to be dissection into the distal inferior and superior segments. The superior branch which supplied 10% was stented, however flow was not restored. The inferior branch supplying 40% of the kidney was widely patent following stenting. The inferior branch supplied 50% of the kidney. Cardiology felt he would need dual antiplatelet therapy for 6 months and control of his blood pressure. They wanted supportive care in the event of left flank pain as a result of losing the superior 10% of the left kidney. The patient did feel better after his procedure and his blood pressure improved. His creatinine was elevated after stenting, therefore he was given more IV fluids. His creatinine improved and he was stable to be discharged home. He will follow-up with cardiology. Exam Data for Last 24 hours Vital signs and Labs for Last 24 Hours: Temp Pulse Resp BP Pulse Ox O2 Del Method 98.5 F 70 18 160/72 H 94 L Room Air 02/07/24 15:54 02/07/24 16:00 02/07/24 15:54 02/07/24 15:54 02/07/24 15:54 02/07/24 15:54 I & O for Last 24 hours: Intake & Output 02/07/24 02/08/24 02/09/24 02/10/24 11:59 11:59 11:59 11:59 Intake Total 870 / 870 125 / 125 Output Total 350 / 350 0 / 0 Balance 520 / 520 125 / 125 Weight 156 lb Narrative: Constitutional Constitutional: no acute distress (resting in bed at time of exam) *Routine HEENT Exam Head: Present normocephalic Eye: Present PERRL ENT: Present mucous membranes moist *Routine Neck Exam Neck: Present supple and full ROM Routine Chest/Breast/Axilla Exam Chest wall: Present pacemaker *Routine Respiratory Exam Respiratory: Present decreased breath sounds *Routine Cardiovascular Exam Cardiovascular: Present RRR; Absent ectopic *Routine Abdominal Exam Abdominal: Present soft; Absent tenderness or organomegaly *Routine Rectal Exam Rectal:: deferred *Routine Genitalia Exam Genitalia:: deferred *Routine Extremities Exam Extremities: Absent edema Routine Back/Spine/Pelvis Exam Back/Spine: Absent CVA tenderness *Routine Skin Exam Skin: Present intact ([place] complection) *Routine Neurological Exam Neurological: Present moving all extremities and normal speech; Absent motor deficit or altered mental status Routine Psychiatric Exam Psychiatric: Present normal affect, normal thought process and cooperative DS: Diagnosis Discharge Diagnosis (1) Hypertensive emergency: Status: Acute Code(s): I16.1 - Hypertensive emergency (2) RHONDA (renal artery stenosis): Status: Chronic Code(s): I70.1 - Atherosclerosis of renal artery (3) Chest fullness: Status: Acute Code(s): R07.89 - Other chest pain (4) Atypical chest pain: Status: Acute Code(s): R07.89 - Other chest pain (5) PAD (peripheral artery disease): Status: Chronic Code(s): I73.9 - Peripheral vascular disease, unspecified (6) Presence of cardiac pacemaker: Status: Chronic Code(s): Z95.0 - Presence of cardiac pacemaker (7) DM2 (diabetes mellitus, type 2): Status: Chronic Code(s): E11.9 - Type 2 diabetes mellitus without complications Qualifiers: Diabetes mellitus adjunct faculty for medical terminology insulin use: without adjunct faculty for medical terminology use Diabetes mellitus complication status: with neurologic complications Diabetes mellitus complication detail: with polyneuropathy Qualified Code(s): E11.42 - Type 2 diabetes mellitus with diabetic polyneuropathy (8) CAD (coronary artery disease): Status: Chronic Code(s): I25.10 - Atherosclerotic heart disease of [place] coronary artery without angina pectoris Qualifiers: Associated angina: with unspecified form of angina Coronary Disease-Associated Artery/Lesion type: [place] artery [place] vs. 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) use 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s (10) HTN (hypertension): Status: Chronic Code(s): I10 - Essential (primary) hypertension Qualifiers: Hypertension type: essential hypertension Qualified Code(s): I10 - Essential (primary) hypertension Meds Home Medications and Allergies Home Medications Medication Instructions Recorded Confirmed Type atorvastatin 80 mg tablet 80 mg PO HS 09/10/17 02/04/24 History tamsulosin 0.4 mg capsule 0.8 mg PO DAILY 09/10/17 02/05/24 History apixaban 5 mg tablet (Eliquis) 5 mg PO BID 01/29/18 02/05/24 History gabapentin 300 mg capsule 300 mg PO BID 01/20/20 02/05/24 History fluticasone fur. 100 mcg-umeclid 1 puff inhalation DAILY 05/15/20 02/05/24 History 62.5 mcg-vilant 25 mcg inhalat.powder metformin 500 mg tablet,extended 1,000 mg PO DAILY 11/29/20 02/05/24 History release 24 hr famotidine 40 mg tablet 40 mg PO HS 05/07/23 02/05/24 History ferrous sulfate 325 mg (65 mg 325 mg PO DAILY 05/07/23 02/05/24 History iron) tablet (FeroSul) lisinopril 5 mg tablet 5 mg PO DAILY 08/09/23 02/05/24 History omeprazole 20 mg capsule,delayed 20 mg PO DAILY 11/08/23 02/05/24 History release clopidogrel 75 mg tablet 75 mg PO DAILY 02/04/24 02/05/24 History nitroglycerin 0.4 mg sublingual 0.4 mg sublingual Q5MINP PRN chest 02/05/24 02/05/24 History tablet pain amlodipine 5 mg tablet 5 mg PO DAILY #30 tabs 02/07/24 Rx carvedilol 6.25 mg tablet 6.25 mg PO BID #60 tabs 02/07/24 Rx New Prescriptions to Start Prescriptions: amlodipine Colby Quan carvedilol Colby Quan Allergies Allergy/AdvReac Type Severity Reaction Status Date / Time Penicillins Allergy Verified 11/08/23 09:16 Discharge Plan Disposition Patient Disposition: Home, Self-Care Condition: Fair Discharge Order Discharge Orders: Discharge Order (Routine); Ordered 02/07/24 Ordered By: Colby Quan Follow up Plan Follow up with: Colby Quan MD [Primary Care Provider] - 02/14/24 10:45 am Colby Neil PA [Physician Forest Firefighter] - 2 weeks (please call for appointment) Prescriptions/Medication Reconciliation: New amlodipine 5 mg tablet 5 mg PO DAILY Qty: 30 0RF carvedilol 6.25 mg tablet 6.25 mg PO BID Qty: 60 0RF Rx Instructions: must administer with a meal/food Continued apixaban [Eliquis] 5 mg tablet 5 mg PO BID omeprazole 20 mg capsule,delayed release(DR/EC) 20 mg PO DAILY Patient Comments: TAKE ONE CAPSULE BY MOUTH EVERY DAY 30 minutes BEFORE morning meal lisinopril 5 mg tablet 5 mg PO DAILY Patient Comments: TAKE ONE TABLET BY MOUTH EVERY DAY metformin 500 MG tablet extended release 24 hr 1,000 mg PO DAILY ferrous sulfate [FeroSul] 325 mg (65 mg iron) tablet 325 mg PO DAILY famotidine 40 mg tablet 40 mg PO HS Patient Comments: TAKE ONE TABLET BY MOUTH EVERY DAY AT BEDTIME clopidogrel 75 mg tablet 75 mg PO DAILY nitroglycerin 0.4 mg tablet, sublingual 0.4 mg sublingual Q5MINP PRN (Reason: chest pain) Rx Instructions: do not exceed 3 doses per episode atorvastatin 80 MG tablet 80 mg PO HS tamsulosin 0.4 MG capsule 0.8 mg PO DAILY gabapentin 300 mg capsule 300 mg PO BID [id number]-snejhxhzf-wxygzjpa 1 EACH blister with device 1 puff IH DAILY Discontinued amlodipine 2.5 mg tablet 2.5 mg PO DAILY carvedilol 3.125 mg tablet 3.125 mg PO BID Patient Comments: TAKE ONE TABLET BY MOUTH TWICE DAILY Other Ambulatory Orders: Basic Metabolic Panel (Routine) Timeframe: 20240221 Facility: [facility] - Location: Laboratory Ordered By: Emery Odom Complete Blood Count Man Dif (Routine) Timeframe: 20240221 Facility: [facility] - Location: Laboratory Ordered By: Emery Odom Problem Reconciliation Problems Reviewed?: Yes Patient Discharge Instructions ACTIVITY: Limited activity DIET: continue same diet Patient Instructions: Essential Hypertension, Heart-Healthy Diet, DI for Cardiac Catheterization, DI for Surgical Site Infection Providers Primary Care Provider: Colby Quan Admit Provider: Colby Quan Attending Provider: Gretta Carballo
== END 2024-02-07 17:44 | disposition home or self-care (01) | DRG 673 ==
LOC: ER 17:23 → 2ND 18:47
PROVIDERS: Emergency Medicine; Internal Medicine; Physician Assistant; Admitting Provider Family Medicine; Emergency Provider Emergency Medicine; PCP Family Medicine; Visit Provider Family Medicine
PROC: 047A34Z Dilation of Left Renal Artery with Drug-eluting Intraluminal Device, Percutaneous Approach (ICD-10-PCS; principal; 2024-02-06 11:00)
DX: I70.1 Atherosclerosis of renal artery (principal); I77.73 Dissection of renal artery; Z79.899 Other long term (current) drug therapy; I16.1 Hypertensive emergency; I25.2 Old myocardial infarction; J44.9 Chronic obstructive pulmonary disease, unspecified; I11.0 Hypertensive heart disease with heart failure; I50.9 Heart failure, unspecified; Z87.891 Personal history of nicotine dependence; I15.0 Renovascular hypertension; I25.118 Atherosclerotic heart disease of native coronary artery with other forms of angina pectoris; Z79.84 Long term (current) use of oral hypoglycemic drugs; E10.51 Type 1 diabetes mellitus with diabetic peripheral angiopathy without gangrene
CPT/HCPCS: 37236; 36415; 71045; 80048; 80053; 83690; 83735; 83880; 84484; 85025; 85347; 93005; 93306; 93458; 94640; 99152; 99153; 99285; C1725; C1769; C1874; C1876; J1644; J2250; J2405; J3010; J3475; J7120; Q9967

== ENCOUNTER 2024-02-08 19:39 | Emergency (ER) | payer MEDICARE, OTHER, SELFPAY ==
[2024-02-08 19:40] VITALS: BP 148/71; PULSE 74; RESP 18; TEMP 36.9; O2SAT 95; BMI 28.3
--- NOTE | 2024-02-08 19:43 | HMH.EDGENADL ---
Discharge Plan Disposition Patient Disposition: Home, Self-Care Condition: Good Prescriptions Prescriptions: No Action apixaban [Eliquis] 5 mg tablet 5 mg PO BID omeprazole 20 mg capsule,delayed release(DR/EC) 20 mg PO DAILY Patient Comments: TAKE ONE CAPSULE BY MOUTH EVERY DAY 30 minutes BEFORE morning meal lisinopril 5 mg tablet 5 mg PO DAILY Patient Comments: TAKE ONE TABLET BY MOUTH EVERY DAY metformin 500 MG tablet extended release 24 hr 1,000 mg PO DAILY ferrous sulfate [FeroSul] 325 mg (65 mg iron) tablet 325 mg PO DAILY famotidine 40 mg tablet 40 mg PO HS Patient Comments: TAKE ONE TABLET BY MOUTH EVERY DAY AT BEDTIME clopidogrel 75 mg tablet 75 mg PO DAILY nitroglycerin 0.4 mg tablet, sublingual 0.4 mg sublingual Q5MINP PRN (Reason: chest pain) Rx Instructions: do not exceed 3 doses per episode amlodipine 5 mg tablet 5 mg PO DAILY Qty: 30 0RF carvedilol 6.25 mg tablet 6.25 mg PO BID Qty: 60 0RF Rx Instructions: must administer with a meal/food atorvastatin 80 MG tablet 80 mg PO HS tamsulosin 0.4 MG capsule 0.8 mg PO DAILY gabapentin 300 mg capsule 300 mg PO BID [id number] 1 EACH blister with device 1 puff IH DAILY Referrals Follow up/Referrals: Colby Quan MD [Primary Care Provider] - See instructions Costa Melendez MD [Staff Physician] - See instructions (Acute urinary retention) Activity Restrictions/Add. Instructions Additional Instructions/Restrictions: Please call and make an appointment tomorrow with Dr. Melendez's office for review. Follow-up with your PCP within 48 hours. Return to ER for any worsening signs or symptoms as needed Clinical Impressions Clinical Impression: Acute urinary retention Instructions Patient Instructions: DI for Urinary Tract Infection (UTI), DI for Urinary Tract Infection in Children Discharge ED Provider: Tian Whiteside General Adult HPI <MADYSON Kuhn - Last Filed: 02/08/24 21:33> General Chief complaint: Urogenital-Male Stated complaint: Unable to pee Time Seen by Provider: 02/08/24 19:43 History of Present Illness HPI narrative: Patient presents for acute urinary retention. Patient was recently admitted to this facility and had a PCI with stent placement by Dr. Odom. He was discharged yesterday. However since his discharge he has not been able to urinate and is feeling bladder pressure. He denies fever chills hemoptysis hematochezia melena nausea vomiting diarrhea. He has had problems with urinary tension in the past but not this long. Related Data Home Medications Medication Instructions Recorded Confirmed atorvastatin 80 mg tablet 80 mg PO HS 09/10/17 02/04/24 tamsulosin 0.4 mg capsule 0.8 mg PO DAILY 09/10/17 02/05/24 apixaban 5 mg tablet (Eliquis) 5 mg PO BID 01/29/18 02/05/24 gabapentin 300 mg capsule 300 mg PO BID 01/20/20 02/05/24 fluticasone fur. 100 mcg-umeclid 1 puff inhalation DAILY 05/15/20 02/05/24 62.5 mcg-vilant 25 mcg inhalat.powder metformin 500 mg tablet,extended 1,000 mg PO DAILY 11/29/20 02/05/24 release 24 hr famotidine 40 mg tablet 40 mg PO HS 05/07/23 02/05/24 ferrous sulfate 325 mg (65 mg 325 mg PO DAILY 05/07/23 02/05/24 iron) tablet (FeroSul) lisinopril 5 mg tablet 5 mg PO DAILY 08/09/23 02/05/24 omeprazole 20 mg capsule,delayed 20 mg PO DAILY 11/08/23 02/05/24 release clopidogrel 75 mg tablet 75 mg PO DAILY 02/04/24 02/05/24 nitroglycerin 0.4 mg sublingual 0.4 mg sublingual Q5MINP PRN chest 02/05/24 02/05/24 tablet pain Previous Rx's Medication Instructions Recorded amlodipine 5 mg tablet 5 mg PO DAILY #30 tabs 02/07/24 carvedilol 6.25 mg tablet 6.25 mg PO BID #60 tabs 02/07/24 Allergies Allergy/AdvReac Type Severity Reaction Status Date / Time Penicillins Allergy Verified 11/08/23 09:16 [facility] <MADYSON Kuhn - Last Filed: 02/08/24 21:33> [facility] Disclaimer: The information contained in this section may have been updated after the patient was seen, as this information can be updated by other users. 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 therapy HTN (hypertension) HLD (hyperlipidemia) RHONDA (renal artery stenosis) Dyspnea Edema Congestive heart failure COPD (chronic obstructive pulmonary disease) CAD (coronary artery disease) Surgical History History of cholecystectomy History of renal stent Family History Sister Breast cancer Son Diabetes Sister Leukemia Social History Smoking Status: Former smoker tobacco type: cigarettes packs per day: 1 years smoked: 35 second hand exposure: No alcohol intake: never counseling provided: none substance use type: denies use current occupational status: retired Travel in the last 8 weeks: Inside the [place] household members: children housing: house current occupational exposures/hazards: No caffeine: Yes <MADYSON Kuhn - Last Filed: 02/08/24 21:33> ROS Obtained: Yes Systems reviewed as appropriate & no additional complaints except as documented Physical Exam <MADYSON Kuhn - Last Filed: 02/08/24 21:33> General General appearance: alert and in no apparent distress Respiratory Respiratory exam: Present normal lung sounds bilaterally Cardiovascular Cardiovascular exam: Present regular rate, normal rhythm and normal heart sounds Abdominal Exam Abdominal exam: Present soft, tenderness (To palpation of the suprapubic area bladder is palpable) and normal bowel sounds; Absent guarding, rebound or rigidity Neurological Exam Neurological exam: Present alert and oriented X3 Medical Decision Making <MADYSON Kuhn - Last Filed: 02/08/24 21:33> Medical Records Medical records reviewed: Yes I reviewed the patient's medical records. Han Inquiry Pt receiving controlled substance: No Vital Signs: 02/08/24 19:40 02/08/24 19:50 02/08/24 20:00 Temperature 98.5 F Temperature Source Oral Pulse Rate 66 70 Pulse Rate [Right Radial] 74 Respiratory Rate 18 Blood Pressure 148/71 H 153/60 H Blood Pressure [Right Arm] 148/71 H Blood Pressure Mean 96 98 Blood Pressure Mean [Right Arm] 96 Blood Pressure Source Blood Pressure Source [Right Arm] Manual Cuff/ Doppler Blood Pressure Position Blood Pressure Position [Right Arm] Supine 02 Sat by Pulse Oximetry 95 95 96 Oxygen Delivery Method Room Air Room Air Room Air 02/08/24 20:42 02/08/24 21:00 02/08/24 21:42 Temperature 98.7 F Temperature Source Oral Pulse Rate 73 75 75 Pulse Rate [Right Radial] Respiratory Rate 18 Blood Pressure 151/60 H 133/56 L 152/60 H Blood Pressure [Right Arm] Blood Pressure Mean 99 81 Blood Pressure Mean [Right Arm] Blood Pressure Source Automatic Cuff Blood Pressure Source [Right Arm] Blood Pressure Position Supine Blood Pressure Position [Right Arm] 02 Sat by Pulse Oximetry 96 95 Oxygen Delivery Method Room Air Room Air Room Air Lab Data Lab results reviewed: Yes I reviewed the patient's lab results. Lab Results 02/08/24 20:30: Sodium 131 L, Potassium 4.2, Chloride 100, Carbon Dioxide 25, Anion Gap 10.2, BUN 21 H, Creatinine 1.50 H, Estimated Creat Clear 39, Estimated GFR 45 L, Est GFR ( Amer) 54 L, Glucose 110 H, Calcium 8.7 02/08/24 20:40: Urine Color Yellow, Urine Appearance Clear, Urine pH 6.0, Ur Specific [place] 1.010, Urine Protein 1+, Urine Glucose (UA) Negative, Urine Ketones Negative, Urine Blood 1+, Urine Nitrate Negative, Urine Bilirubin Negative, Urine Urobilinogen 1.0, Ur Leukocyte Esterase Trace, Urine RBC 3-5, Urine WBC 3-5, Ur Squamous Epith Cells Occasional, Urine Bacteria Trace 02/08/24 20:30 Orders (Tests/Meds): ORDERS Category Date Time Status POCUS Point of Care (ER Only) Stat Exams 02/08/24 19:51 Taken BMP [Basic Metabolic Panel] Stat Lab 02/08/24 20:30 Completed UA [Urinalysis and Microscopic] Stat Lab 02/08/24 20:40 Completed Medical Decision Narrative: In summary patient is a 83-year-old gentleman who presents to the emergency department for evaluation of urinary retention. Patient is hemodynamically stable upon arrival, afebrile. Remarkable for suprapubic tenderness and a palpable bladder. Differential diagnosis includes urinary retention versus BPH versus obstructing mass etc. Initial workup will be conducted with POCUS, urinalysis BMP.. Initial interventions include Montaño placement. Initial workup reviewed by me hematologic labs are nonactionable and his urinalysis is bland with trace bacteria trace leuks but no nitrites. Upon repeat evaluation patient reports acceptable resolution of his symptoms with Montaño catheter placement. Given this patient is appropriate for discharge with follow-up and referral to Dr. Melendez of urology. <Tian Whiteside MD - Last Filed: 02/08/24 21:56> Vital Signs: 02/08/24 19:40 02/08/24 19:50 02/08/24 20:00 Temperature 98.5 F Temperature Source Oral Pulse Rate 66 70 Pulse Rate [Right Radial] 74 Respiratory Rate 18 Blood Pressure 148/71 H 153/60 H Blood Pressure [Right Arm] 148/71 H Blood Pressure Mean 96 98 Blood Pressure Mean [Right Arm] 96 Blood Pressure Source Blood Pressure Source [Right Arm] Manual Cuff/ Doppler Blood Pressure Position Blood Pressure Position [Right Arm] Supine 02 Sat by Pulse Oximetry 95 95 96 Oxygen Delivery Method Room Air Room Air Room Air 02/08/24 20:42 02/08/24 21:00 02/08/24 21:42 Temperature 98.7 F Temperature Source Oral Pulse Rate 73 75 75 Pulse Rate [Right Radial] Respiratory Rate 18 Blood Pressure 151/60 H 133/56 L 152/60 H Blood Pressure [Right Arm] Blood Pressure Mean 99 81 Blood Pressure Mean [Right Arm] Blood Pressure Source Automatic Cuff Blood Pressure Source [Right Arm] Blood Pressure Position Supine Blood Pressure Position [Right Arm] 02 Sat by Pulse Oximetry 96 95 Oxygen Delivery Method Room Air Room Air Room Air Lab Data Lab Results 02/08/24 20:30: Sodium 131 L, Potassium 4.2, Chloride 100, Carbon Dioxide 25, Anion Gap 10.2, BUN 21 H, Creatinine 1.50 H, Estimated Creat Clear 39, Estimated GFR 45 L, Est GFR ( Amer) 54 L, Glucose 110 H, Calcium 8.7 02/08/24 20:40: Urine Color Yellow, Urine Appearance Clear, Urine pH 6.0, Ur Specific [place] 1.010, Urine Protein 1+, Urine Glucose (UA) Negative, Urine Ketones Negative, Urine Blood 1+, Urine Nitrate Negative, Urine Bilirubin Negative, Urine Urobilinogen 1.0, Ur Leukocyte Esterase Trace, Urine RBC 3-5, Urine WBC 3-5, Ur Squamous Epith Cells Occasional, Urine Bacteria Trace Orders (Tests/Meds): ORDERS Category Date Time Status POCUS Point of Care (ER Only) Stat Exams 02/08/24 19:51 Taken BMP [Basic Metabolic Panel] Stat Lab 02/08/24 20:30 Completed UA [Urinalysis and Microscopic] Stat Lab 02/08/24 20:40 Completed Medical Decision Narrative: In summary patient is a 83-year-old gentleman who presents to the emergency department for evaluation of urinary retention. Patient is hemodynamically stable upon arrival, afebrile. Remarkable for suprapubic tenderness and a palpable bladder. Differential diagnosis includes urinary retention versus BPH versus obstructing mass etc. Initial workup will be conducted with POCUS, urinalysis BMP.. Initial interventions include Montaño placement. Initial workup reviewed by me hematologic labs are nonactionable and his urinalysis is bland with trace bacteria trace leuks but no nitrites. Upon repeat evaluation patient reports acceptable resolution of his symptoms with Montaño catheter placement. Given this patient is appropriate for discharge with follow-up and referral to Dr. Melendez of urology. I was consulted by the SYBIL, and we discussed the complexity of the problems being addressed. I approved the treatment and management plan for this patient?s care in the Emergency Department, thus performing a substantive portion of the medical decision making. Tian Whiteside MD Procedures <Tian Whiteside MD - Last Filed: 02/08/24 21:56> Limited Ultrasound Indication:: Limited Bladder ultrasound Indication: Difficulty urinating, suprapubic pain Identified structures: Location: bladder Findings: Bladder grossly nondistended. Impression: Thickened bladder wall, grossly nondistended Images were saved to permanent archive The study was technically adequate PVR bladder Codes: [id number] This study was performed by me, and I personally interpreted all images/videos. Based on my clinical judgement, these images were adequate and did not necessitate further imaging Critical Care <MADYOSN Kuhn - Last Filed: 02/08/24 21:33> Critical Care Time Critical Care Time: No
[2024-02-08 19:50] VITALS: BP 148/71; PULSE 66; O2SAT 95
[2024-02-08 20:00] VITALS: BP 153/60; PULSE 70; O2SAT 96
[2024-02-08 20:42] VITALS: BP 151/60; PULSE 73; O2SAT 96
[2024-02-08 20:42] LABS: Chloride 100 mmol/L (98-107); Potassium 4.2 mmoL/L (3.5-5.1); Sodium 131 mmol/L (136-145)
--- NOTE | 2024-02-08 20:43 | PC.NURSE ---
14F coude cano cath inserted at this time, UA sent to lab
[2024-02-08 20:45] LABS: Anion Gap 10.2 mEq/L (5-15); Blood Urea Nitrogen 21 mg/dl (9-20); Carbon Dioxide 25 mmol/L (22.0-30.0); Creatinine Clearance Estimated 39 mL/min (50-200); Estimated Glomerular Filt Rate 45 ml/min (>60); GFR (African American) 54 ML/MIN (>60)
[2024-02-08 20:46] LABS: Calcium 8.7 mg/dl (8.4-10.2); Glucose 110 mg/dl (74-100)
[2024-02-08 20:47] LABS: Microscopic, Urine URINE MICROSCOPIC (MICROSCOPIC)
[2024-02-08 20:48] LABS: Appearance,Urine CLEAR (Clear); Bilirubin,Urine Negative (Negative); Blood, Urine 1+ (Negative); Color,Urine YELLOW (Yellow); Glucose,Urine (UA) Negative (Negative); Ketones,Urine Negative (Negative); Leukocyte Esterase,Urine TRACE (Negative); Nitrate,Urine Negative (Negative); Protein,Urine 1+ (Negative)
[2024-02-08 21:00] VITALS: BP 133/56; PULSE 75; O2SAT 95
[2024-02-08 21:17] LABS: Bacteria,Urine Trace /lpf; Squamous Epithelial Cell,Urine Occasional #/hpf (0-5)
[2024-02-08 21:42] VITALS: BP 152/60; PULSE 75; RESP 18; TEMP 37.1; O2SAT 97
== END 2024-02-08 21:54 | disposition home or self-care (01) ==
PROVIDERS: Physician Assistant; Emergency Provider Emergency Medicine; PCP Family Medicine
DX: R33.9 Retention of urine, unspecified (principal); E87.1 Hypo-osmolality and hyponatremia; J44.9 Chronic obstructive pulmonary disease, unspecified; I11.0 Hypertensive heart disease with heart failure; I50.9 Heart failure, unspecified; E78.5 Hyperlipidemia, unspecified; I25.10 Atherosclerotic heart disease of native coronary artery without angina pectoris; Z87.891 Personal history of nicotine dependence; Z95.5 Presence of coronary angioplasty implant and graft
CPT/HCPCS: 80048; 81001; 99284

== ENCOUNTER 2024-02-12 10:30 | Outpatient (CLI) | payer MEDICARE, OTHER, SELFPAY | END 2024-02-12 23:59 | disposition home or self-care (01) | LOC: LAB.DROPOF 02-13 07:55 | PROVIDERS: PCP Urology; Visit Provider Urology | DX: R33.9 Retention of urine, unspecified (principal); N39.0 Urinary tract infection, site not specified; B95.2 Enterococcus as the cause of diseases classified elsewhere | CPT/HCPCS: 87086; 87088; 87186 ==

== ENCOUNTER 2024-02-19 14:59 | Outpatient (CLI) | payer MEDICARE, OTHER, SELFPAY ==
--- NOTE | 2024-02-19 15:15 | US_ITS ---
FINAL REPORT CLINICAL HISTORY: Urinary retention COMPARISON: None FINDINGS: ULTRASOUND BLADDER WITH POST VOID RESIDUAL Bladder volumes were estimated based on 3 dimensional measurements, pre- and postvoid. The bladder wall is mildly thickened. Prevoid bladder volume: 133 mls Postvoid bladder volume: 106 mls IMPRESSION: Minimal emptying of the bladder with significant postvoid residual noted.. Reviewed, Interpreted and Dictated by Gretta Rose MD Transcribed by Shari Brush Authenticated and [facility] [place] [place]
== END 2024-02-19 23:59 | disposition home or self-care (01) ==
LOC: RAD 15:01
PROVIDERS: PCP Family Medicine; Visit Provider Urology
DX: R33.9 Retention of urine, unspecified (principal)
CPT/HCPCS: 76857

== ENCOUNTER 2024-03-25 11:14 | Outpatient (CLI) | payer MEDICARE, OTHER, SELFPAY ==
[2024-03-25 11:19] LABS: MANUAL DIFFERENTIAL MANUAL DIFFERENTIAL (MANUAL DIFF)
[2024-03-25 11:45] LABS: Basophils % 0.4 % (0.1-2.0); Eosinophils # 0.1 K/mm3 (0.0-0.4); Eosinophils % 1.3 % (0.1-12.0); Hematocrit 37.1 % (42.0-52.0); Hemoglobin 11.6 g/dL (14.1-18.0); Lymphocytes # 1.9 K/mm3 (0.7-4.5); Lymphocytes % 23.5 % (10-50); Mean Corpuscular HGB Conc 31.2 g/dL (31.8-35.4); Mean Corpuscular Hemoglobin 30.1 pg (27.0-31.2); Mean Corpuscular Volume 96.5 fl (80-94); Mean Platelet Volume 10.2 fl (7.4-10.4); Monocytes # 0.8 K/mm3 (0.1-1.0); Monocytes % 9.6 % (1.7-9.3); Neutrophils # 5.2 K/mm3 (1.8-7.8); Neutrophils % 65.2 % (37.0-80.0); Platelet Count 170 K/mm3 (142-424); Red Blood Count 3.84 M/mm3 (4.60-6.20); Red Cell Distribution Width 16.8 % (11.5-17.5)
[2024-03-25 12:18] LABS: Chloride 108 mmol/L (98-107); Sodium 139 mmol/L (136-145)
[2024-03-25 12:21] LABS: Blood Urea Nitrogen 20 mg/dl (9-20); Estimated Glomerular Filt Rate 53 ml/min (>60); GFR (African American) 64 ML/MIN (>60)
[2024-03-25 12:22] LABS: Calcium 8.6 mg/dl (8.4-10.2); Carbon Dioxide 26 mmol/L (22.0-30.0); Glucose 86 mg/dl (74-100)
[2024-03-25 12:36] LABS: Lymphocytes % 25 % (10-50); Monocytes % 11 % (2-9); Neutrophils % 64 % (42-76); Total Cells Counted 100
[2024-03-25 12:37] LABS: Hypochromasia 1+; Platelet Estimate Normal
[2024-03-25 12:38] LABS: Macrocytosis 1+
== END 2024-03-25 23:59 | disposition home or self-care (01) ==
LOC: LAB 11:15
PROVIDERS: PCP Family Medicine; Visit Provider Internal Medicine
DX: I25.10 Atherosclerotic heart disease of native coronary artery without angina pectoris (principal); Z87.891 Personal history of nicotine dependence
CPT/HCPCS: 36415; 80048; 85007; 85014; 85018; 85048; 85049

== ENCOUNTER 2024-06-17 09:30 | Outpatient (CLI) | payer MEDICARE, OTHER, SELFPAY ==
[2024-06-17 09:56] LABS: Basophils % 0.6 % (0.1-2.0); Eosinophils # 0.2 K/mm3 (0.0-0.4); Eosinophils % 2.1 % (0.1-12.0); Hematocrit 36.1 % (42.0-52.0); Hemoglobin 11.9 g/dL (14.1-18.0); Lymphocytes % 25.8 % (10-50); Mean Corpuscular HGB Conc 33.1 g/dL (31.8-35.4); Mean Corpuscular Hemoglobin 30.5 pg (27.0-31.2); Mean Corpuscular Volume 92.2 fl (80-94); Mean Platelet Volume 9.5 fl (7.4-10.4); Monocytes # 0.5 K/mm3 (0.1-1.0); Monocytes % 6.4 % (1.7-9.3); Neutrophils % 65.1 % (37.0-80.0); Platelet Count 162 K/mm3 (142-424); Red Blood Count 3.91 M/mm3 (4.60-6.20); White Blood Count 7.7 K/mm3 (4.8-10.8)
[2024-06-17 10:11] LABS: Albumin Level 4.3 g/dl (3.5-5.0); Chloride 108 mmol/L (98-107); Sodium 142 mmol/L (136-145)
[2024-06-17 10:13] LABS: Alanine Aminotransferase 23 U/L (12-78); Aspartate Amino Transferase 24 U/L (17-59); Bilirubin,Unconjugated 1.1 mg/dL (0.0-1.1); Blood Urea Nitrogen 23 mg/dl (9-20); Carbon Dioxide 21 mmol/L (22.0-30.0); Estimated Glomerular Filt Rate 45 ml/min (>60); GFR (African American) 54 ML/MIN (>60)
[2024-06-17 10:14] LABS: Alkaline Phosphatase 96 U/L (38-126); Bilirubin,Direct 0.1 mg/dl (0.0-0.4); Bilirubin,Total 1.1 mg/dl (0.2-1.3); Calcium 8.7 mg/dl (8.4-10.2); Chol/HDL Ratio 4.1 (1-3.5); Cholesterol 154 mg/dl (140-200); Glucose 131 mg/dl (74-100); HDL Cholesterol 38 mg/dl (40-60); Total Protein,Serum 6.9 g/dl (6.3-8.2); Triglycerides 237 mg/dl (30-150); VLDL Cholesterol 47 mg/dL (0-40)
[2024-06-17 10:25] LABS: Direct LDL Cholesterol 80.52 mg/dL (100-129)
[2024-06-17 10:31] LABS: Free T4 (Free Thyroxine) 1.16 ng/dl (0.78-2.19)
[2024-06-17 10:45] LABS: Thyroid Stimulating Hormone 4.27 uIU/mL (0.465-4.68)
== END 2024-06-17 23:59 | disposition home or self-care (01) ==
LOC: LAB 09:32
PROVIDERS: PCP Family Medicine; Visit Provider Physician Assistant
DX: I73.9 Peripheral vascular disease, unspecified (principal); D64.9 Anemia, unspecified; E11.42 Type 2 diabetes mellitus with diabetic polyneuropathy; I25.119 Atherosclerotic heart disease of native coronary artery with unspecified angina pectoris; I50.32 Chronic diastolic (congestive) heart failure; E78.2 Mixed hyperlipidemia; I10 Essential (primary) hypertension; I70.1 Atherosclerosis of renal artery; G45.9 Transient cerebral ischemic attack, unspecified; Z95.0 Presence of cardiac pacemaker; I49.5 Sick sinus syndrome
CPT/HCPCS: 36415; 80048; 80061; 80076; 84439; 84443; 85025

== ENCOUNTER 2024-06-21 22:45 | Emergency (ER) | payer MEDICARE, OTHER, SELFPAY ==
--- NOTE | 2024-06-21 22:42 | ECG_ITS ---
APPROVED REPORT Exam: Resting ECG HR:73 bpm ECG Measurements Heart Rate 73 AXES QRSd 108 QRS -71 QT 403 T 115 QTc 429 Conclusion UNCERTAIN IRREGULAR RHYTHM ELECTRONIC VENTRICULAR PACEMAKER -- CONTOUR ANALYSIS BASED ON INTRINSIC RHYTHM LEFT AXIS DEVIATION [QRS AXIS < -30] POSSIBLE ANTERIOR MYOCARDIAL INFARCTION , PROBABLY OLD [30 ms Q WAVE IN V3/V4, OR R < 0.2 mV IN V4] MODERATE T-WAVE ABNORMALITY, CONSIDER LATERAL ISCHEMIA [-0.1+ mV T-WAVE IN I/aVL/V5/V6] ABNORMAL ECG Electronically signed by : RADHA RODRIGUEZ, 06/21/2024 23:31:03
[2024-06-21 22:45] VITALS: BP 189/94; PULSE 68; RESP 18; TEMP 36.4; O2SAT 96; BMI 29.8
[2024-06-21 23:00] VITALS: BP 178/86; PULSE 69; RESP 16; O2SAT 98
[2024-06-21 23:03] VITALS: PULSE 73
--- NOTE | 2024-06-21 23:13 | PC.NURSE ---
207mL in bladder upon bladder scan
--- NOTE | 2024-06-21 23:20 | XR_ITS ---
PROCEDURE INFORMATION: Exam: XR Chest Exam date and time: 06/21/2024 11:22 PM Age: 83 years old Clinical indication: Pain; Chest pressure TECHNIQUE: Imaging protocol: Radiologic exam of the chest. Views: 2 views. Total images: 2 COMPARISON: CR XR CHEST PORTABLE 02/04/2024 2:16 PM FINDINGS: Tubes, catheters and devices: Status post left subclavian cardiac pacer/defibrillator. EKG leads are present. Lungs: New mild central vascular congestion. Cannot exclude mild pulmonary interstitial edema. No focal airspace consolidation. Emphysematous changes. Pleural spaces: New small bilateral pleural effusions. Chronic biapical pleural thickening/scarring. Similar pleural based density in the left lung. Heart/Mediastinum: Prominent cardiac silhouette, unchanged. No cardiomegaly. No mediastinal widening. Vasculature: Atherosclerotic aortic arch. Bones/joints: Stable osseous structures. IMPRESSION: 1. Suspect acute mild CHF or volume overload superimposed on chronic background emphysema and fibrosis. 2. New small bilateral pleural effusions.
[2024-06-21 23:25] LABS: Appearance,Urine CLEAR (Clear); Bilirubin,Urine Negative (Negative); Blood, Urine Negative (Negative); Color,Urine YELLOW (Yellow); Glucose,Urine (UA) Negative (Negative); Ketones,Urine Negative (Negative); Leukocyte Esterase,Urine 1+ (Negative); Microscopic, Urine URINE MICROSCOPIC (MICROSCOPIC); Nitrate,Urine Negative (Negative); Protein,Urine TRACE (Negative); Urobilinogen,Urine 0.2 EU/dl (0.2)
[2024-06-21 23:28] LABS: Chloride 106 mmol/L (98-107)
[2024-06-21 23:29] LABS: Albumin Level 4.3 g/dl (3.5-5.0); Basophils # 0.1 K/mm3 (0-0.2); Basophils % 1.1 % (0.1-2.0); Eosinophils # 0.1 K/mm3 (0.0-0.4); Hematocrit 35.2 % (42.0-52.0); Hemoglobin 11.5 g/dL (14.1-18.0); Lymphocytes # 2.2 K/mm3 (0.7-4.5); Lymphocytes % 32.8 % (10-50); Mean Corpuscular HGB Conc 32.5 g/dL (31.8-35.4); Mean Corpuscular Volume 92.2 fl (80-94); Mean Platelet Volume 9.6 fl (7.4-10.4); Monocytes # 0.5 K/mm3 (0.1-1.0); Monocytes % 8.1 % (1.7-9.3); Neutrophils # 3.7 K/mm3 (1.8-7.8); Platelet Count 177 K/mm3 (142-424); Potassium 3.8 mmoL/L (3.5-5.1); Red Blood Count 3.82 M/mm3 (4.60-6.20); Red Cell Distribution Width 15.9 % (11.5-17.5); Sodium 141 mmol/L (136-145); White Blood Count 6.6 K/mm3 (4.8-10.8)
[2024-06-21 23:31] LABS: Blood Urea Nitrogen 22 mg/dl (9-20); Creatinine Clearance Estimated 41 mL/min (50-200); Estimated Glomerular Filt Rate 45 ml/min (>60); GFR (African American) 54 ML/MIN (>60)
[2024-06-21 23:32] LABS: Alanine Aminotransferase 21 U/L (12-78); Albumin/Globulin Ratio 1.5 (1.1-1.8); Alkaline Phosphatase 83 U/L (38-126); Anion Gap 13.8 mEq/L (5-15); Aspartate Amino Transferase 23 U/L (17-59); Bilirubin,Total 1.2 mg/dl (0.2-1.3); Calcium 9.2 mg/dl (8.4-10.2); Carbon Dioxide 25 mmol/L (22.0-30.0); Globulin 2.9 g/dL (1.3-3.2); Glucose 118 mg/dl (74-100); Total Protein,Serum 7.2 g/dl (6.3-8.2)
[2024-06-21 23:35] LABS: Activated Partial Thrombo Time 29.7 seconds (22.8-30.6); INR 0.99 (0.9-1.1); Prothrombin Time 11.1 seconds (10.1-12.5)
[2024-06-21 23:36] LABS: Bacteria,Urine Trace /lpf
[2024-06-21 23:44] LABS: Troponin I < 0.01 ng/ml (0.00-0.034)
[2024-06-21 23:54] LABS: D-Dimer 1.19 ug/mL (0.0-0.5)
--- NOTE | 2024-06-21 23:56 | CT_ITS ---
PROCEDURE INFORMATION: Exam: CTA Chest With Contrast Exam date and time: 06/22/2024 12:40 AM Age: 83 years old Clinical indication: Pain and abnormal findings; Abnormal diagnostic tests; Elevated d-dimer; Additional info: Dimer elevated cp, pleuritic TECHNIQUE: Imaging protocol: Computed tomographic angiography of the chest with contrast. Exam focused on the arteries. 3D rendering (Not supervised by radiologist): MIP and/or 3D reconstructed images were created by the technologist. Total images: 837 Radiation optimization: All CT scans at this facility use at least one of these dose optimization techniques: automated exposure control; mA and/or kV adjustment per patient size (includes targeted exams where dose is matched to clinical indication); or iterative reconstruction. Contrast material: ISOUVE 370; Contrast volume: 70 ml; Contrast route: INTRAVENOUS (IV); COMPARISON: CR XR CHEST 2V 06/21/2024 11:22 PM FINDINGS: Tubes, catheters and devices: Status post left subclavian cardiac pacer/defibrillator. Pulmonary arteries: Adequate contrast opacification the pulmonary arteries. The main pulmonary artery is normal in caliber. No acute pulmonary emboli. Aorta: Severely atherosclerotic thoracic aorta without aneurysm or dissection. Lungs: The trachea and main bronchi are patent. Diffuse bronchial wall thickening/cuffing. Mild bibasilar atelectasis. Coarsening of the interlobular pulmonary septa in keeping with pulmonary interstitial edema. No airspace consolidation. Right greater than left apical subpleural blebs. Pleural spaces: Small bilateral pleural effusions. Focal pleural lipomatosis anterolateral left hemithorax corresponding with chest radiographic density. No pneumothorax. Heart: Normal heart size. Trace pericardial effusion. Mild biatrial dilatation. Coronary arteries: Severe coronary artery calcifications. Lymph nodes: Mild mediastinal and bilateral hilar lymphadenopathy including partially calcified lymph nodes. Intraperitoneal space: No acute process in the upper abdomen. 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 Remote mild anterior wedging of the T12 vertebral body. Soft tissues: Unremarkable. Other findings: Limitations imposed by moderate respiratory motion artifact. IMPRESSION: 1. No acute pulmonary emboli. 2. Pulmonary interstitial edema. 3. Small bilateral pleural effusions 4. Mild mediastinal and bilateral hilar lymphadenopathy. 5. Bronchial wall thickening/peribronchial cuffing with narrowed bronchial lumens. 6. Severe coronary artery calcifications 7. Trace pericardial effusion.
[2024-06-22] VITALS (12 sets, daily range): BP systolic 161–194; BP diastolic 62–91; PULSE 69–74; RESP 15–22; TEMP 36.6; O2SAT 95–98
[2024-06-22] MEDS: ASPIRIN 81MG CHEWABLE TABLET 324 MG PO (00:10)
--- NOTE | 2024-06-22 00:33 | ED_ITS ---
Discharge Plan Prescriptions Prescriptions: No Action apixaban [Eliquis] 5 mg tablet 5 mg PO BID omeprazole 20 mg capsule,delayed release(DR/EC) 20 mg PO DAILY Patient Comments: TAKE ONE CAPSULE BY MOUTH EVERY DAY 30 minutes BEFORE morning meal nystatin-triamcinolone 100,000-0.1 unit/g-% cream 1 applic topical BID 30 Days Qty: 30 0RF carvedilol 6.25 mg tablet 6.25 mg PO Patient Comments: TAKE ONE TABLET BY MOUTH TWICE DAILY WITH FOOD amlodipine 5 mg tablet 5 mg PO Patient Comments: TAKE ONE TABLET BY MOUTH EVERY DAY lisinopril 5 mg tablet 5 mg PO DAILY Patient Comments: TAKE ONE TABLET BY MOUTH EVERY DAY levofloxacin 500 mg tablet 500 mg PO DAILY 5 Days Qty: 5 0RF Rx Instructions: Start this medicine Monday02-17-2024 tamsulosin 0.4 mg capsule 0.8 mg PO DAILY 90 Days Qty: 180 1RF finasteride [Proscar] 5 mg tablet 5 mg PO DAILY Qty: 90 3RF metformin 500 MG tablet extended release 24 hr 1,000 mg PO DAILY ferrous sulfate [FeroSul] 325 mg (65 mg iron) tablet 325 mg PO DAILY famotidine 40 mg tablet 40 mg PO HS Patient Comments: TAKE ONE TABLET BY MOUTH EVERY DAY AT BEDTIME clopidogrel 75 mg tablet 75 mg PO DAILY nitroglycerin 0.4 mg tablet, sublingual 0.4 mg sublingual Q5MINP PRN (Reason: chest pain) Rx Instructions: do not exceed 3 doses per episode atorvastatin 80 MG tablet 80 mg PO HS gabapentin 300 mg capsule 300 mg PO BID [id number] 1 EACH blister with device 1 puff IH DAILY Referrals Follow up/Referrals: Colby Quan MD [Primary Care Provider] - See instructions Colby Neil PA [Physician [employer] Building Design Specialist] - See instructions (Evaluated in ER for chest pressure with reassuring workup, please re-eval in clinic, recheck BNP) Activity Restrictions/Add. Instructions Additional Instructions/Restrictions: You were evaluated in the ER and are appropriate for discharge at this time. Continue all home medications as prescribed. Make an appointment with cardiology for reevaluation. Also please make an appointment with your urologist to reevaluate your difficulty urinating. Return to the ER with new, worsening, or otherwise concerning symptoms. Clinical Impressions Clinical Impression: Chest pain, Elevated d-dimer Print Language Print Language: Senegalese Discharge ED Provider: [facility] HPI General Chief complaint: Chest Pain Stated complaint: CP, bilateral arm numbness Time Seen by Provider: 06/21/24 23:09 Mode of Arrival: Ambulatory Source of Information: Patient Limitations: No Limitations Description of Symptoms (Recalled from ER Triage Doc. by RN): Patient reports MSCP starting around 10:30pm. Has not taken any meds for it. Has history of pacemaker placement, htn, and stent placement. History of Present Illness HPI narrative: 83-year-old male presents to the ER with complaints of chest pain starting approximately 30 minutes prior to arrival. Patient reports he is having midsternal chest pressure that radiates to the bilateral arms, left worse than right. He denies headache, nausea, vomiting, dizziness, or other associated symptoms. He does state he has worse pain with deep inspiration. Patient takes Eliquis and has a history of pacemaker with hypertension and multiple stents throughout the body including in the heart, kidney, legs. Patient also reports he has been having difficulty with urine output, he has only been able to get out a very small amount of urine at a time. No fevers, chills, cough, no abdominal pain, no dysuria, no hematuria. Family at bedside reports that patient had a bladder scope in the last few weeks that was normal for his age . Patient takes tamsulosin and finasteride. He follows with urology. He reports his difficulty urinating has been going on for months. No back pain, numbness, tingling, or weakness. Related Data Home Medications ?Medication ?Instructions ?Recorded ?Confirmed atorvastatin 80 mg tablet 80 mg PO HS 09/10/17 06/17/24 apixaban 5 mg tablet (Eliquis) 5 mg PO BID 01/29/18 06/17/24 gabapentin 300 mg capsule 300 mg PO BID 01/20/20 06/17/24 fluticasone fur. 100 mcg-umeclid 1 puff inhalation DAILY 05/15/20 06/17/24 62.5 mcg-vilant 25 mcg inhalat.powder metformin 500 mg tablet,extended 1,000 mg PO DAILY 11/29/20 06/17/24 release 24 hr famotidine 40 mg tablet 40 mg PO HS 05/07/23 06/17/24 ferrous sulfate 325 mg (65 mg 325 mg PO DAILY 05/07/23 06/17/24 iron) tablet (FeroSul) lisinopril 5 mg tablet 5 mg PO DAILY 08/09/23 06/17/24 omeprazole 20 mg capsule,delayed 20 mg PO DAILY 11/08/23 06/17/24 release clopidogrel 75 mg tablet 75 mg PO DAILY 02/04/24 06/17/24 nitroglycerin 0.4 mg sublingual 0.4 mg sublingual Q5MINP PRN chest 02/05/24 06/17/24 tablet pain amlodipine 5 mg tablet 5 mg PO 03/25/24 06/17/24 carvedilol 6.25 mg tablet 6.25 mg PO 03/25/24 06/17/24 Previous Rx's ?Medication ?Instructions ?Recorded levofloxacin 500 mg tablet 500 mg PO DAILY 5 days #5 tabs 02/12/24 nystatin-triamcinolone 100,000 1 applic topical BID 30 days #30 02/19/24 unit/g-0.1 % topical cream grams finasteride 5 mg tablet (Proscar) 5 mg PO DAILY #90 tabs 02/27/24 tamsulosin 0.4 mg capsule 0.8 mg (2 x 0.4 mg) PO DAILY 90 02/27/24 days #180 caps Allergies Allergy/AdvReac Type Severity Reaction Status Date / Time Penicillins Allergy Verified 06/17/24 08:55 [facility] Disclaimer: The information contained in this section may have been updated after the patient was seen, as this information can be updated by other users. Medical History Left lower lobe pneumonia COVID Pneumonia due to COVID-19 virus Positive blood cultures Respiratory failure with hypoxia Closed right fibular fracture SIRS (systemic inflammatory response syndrome) Heart attack History of left heart catheterization (LHC) Diabetes 1.5, managed as type 1 Abnormal result of cardiovascular function study Tachy-gerry syndrome Dizziness Sinus pause senior living current use 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 therapy HTN (hypertension) HLD (hyperlipidemia) RHONDA (renal artery stenosis) Dyspnea Edema Congestive heart failure COPD (chronic obstructive pulmonary disease) CAD (coronary artery disease) Surgical History History of cholecystectomy History of renal stent Family History Sister Breast cancer Son Diabetes Sister Leukemia Social History (Updated 06/22/24 @ 05:46 by Marti Polo MD) Smoking Status: Former smoker tobacco type: cigarettes packs per day: 1 years smoked: 35 second hand exposure: No alcohol intake: never counseling provided: none substance use type: denies use current occupational status: retired Travel in the last 8 weeks: None household members: children housing: house current occupational exposures/hazards: No caffeine: Yes Other Medical History Have you received the Flu Vaccine for this season: No Have you received the Pneumonia Vaccine: No ROS Obtained: Yes Systems reviewed as appropriate & no additional complaints except as documented ROS per HPI Physical Exam General General appearance: alert and in no apparent distress Head Head exam: atraumatic and normocephalic Eye Eye exam: Present PERRL and EOMI ENT ENT exam: Present mucous membranes moist Neck Neck exam: Present normal inspection and full ROM Chest Chest inspection: Present symmetric chest wall rise Respiratory Respiratory exam: Present normal lung sounds bilaterally; Absent respiratory distress, wheezes or stridor Cardiovascular Cardiovascular exam: Present regular rate and normal rhythm Abdominal Exam Abdominal exam: Present soft; Absent distention or tenderness Extremities Exam Extremities exam: Present full ROM; Absent edema Back Exam Back exam: Absent CVA tenderness (R) or CVA tenderness (L) Neurological Exam Neurological exam: Present alert and oriented X3; Absent motor sensory deficit Psychiatric Psychiatric exam: Present normal affect and normal mood Skin Skin exam: Present warm and dry Medical Decision Making Medical Records Medical records reviewed: Yes I reviewed the patient's medical records. Screening: Per USPSTF and CDC recommendations, given the prevalence of disease in our region, it is our hospital?s policy to screen for HIV and viral Hepatitis for all patients aged 18 and over and those with ongoing risk factors. MR Comment: Patient was evaluated in January for urinary retention by urology and this report shows they were recommending follow-up at [facility]. Most recent cardiology note from 06/17/2024 with Colby Neil at our cardiology clinic demonstrates plan for routine labs, patient has a stent to the left renal artery placed over the summer. Ahn Inquiry Pt receiving controlled substance: No Vital Signs: 06/21/24 22:45 06/21/24 23:00 06/21/24 23:03 Temperature 97.5 F L Temperature Source Oral Pulse Rate 69 73 Pulse Rate [Right Radial] 68 Respiratory Rate 18 16 Blood Pressure 178/86 H Blood Pressure [Right Arm] 189/94 H Blood Pressure Mean [Right Arm] 125 Blood Pressure Source Blood Pressure Source [Right Arm] Automatic Cuff Blood Pressure Position Blood Pressure Position [Right Arm] Supine 02 Sat by Pulse Oximetry 96 98 Oxygen Delivery Method Room Air 06/22/24 00:00 06/22/24 00:30 06/22/24 01:31 Temperature Temperature Source Pulse Rate 70 71 69 Pulse Rate [Right Radial] Respiratory Rate 18 21 21 Blood Pressure 176/89 H 161/63 H 192/79 H Blood Pressure [Right Arm] Blood Pressure Mean [Right Arm] Blood Pressure Source Blood Pressure Source [Right Arm] Blood Pressure Position Blood Pressure Position [Right Arm] 02 Sat by Pulse Oximetry 98 96 97 Oxygen Delivery Method 06/22/24 02:01 06/22/24 02:30 06/22/24 03:01 Temperature Temperature Source Pulse Rate 70 72 72 Pulse Rate [Right Radial] Respiratory Rate 15 19 20 Blood Pressure 169/62 H 173/74 H 169/76 H Blood Pressure [Right Arm] Blood Pressure Mean [Right Arm] Blood Pressure Source Blood Pressure Source [Right Arm] Blood Pressure Position Blood Pressure Position [Right Arm] 02 Sat by Pulse Oximetry 98 95 96 Oxygen Delivery Method 06/22/24 03:30 06/22/24 04:15 06/22/24 04:27 Temperature Temperature Source Pulse Rate 70 70 70 Pulse Rate [Right Radial] Respiratory Rate 17 19 20 Blood Pressure 176/91 H 194/78 H 168/82 H Blood Pressure [Right Arm] Blood Pressure Mean [Right Arm] Blood Pressure Source Blood Pressure Source [Right Arm] Blood Pressure Position Blood Pressure Position [Right Arm] 02 Sat by Pulse Oximetry 95 98 96 Oxygen Delivery Method 06/22/24 04:30 06/22/24 04:45 06/22/24 05:41 Temperature 97.9 F Temperature Source Oral Pulse Rate 71 71 74 Pulse Rate [Right Radial] Respiratory Rate 17 22 18 Blood Pressure 179/81 H 168/72 H Blood Pressure [Right Arm] Blood Pressure Mean [Right Arm] Blood Pressure Source Automatic Cuff Blood Pressure Source [Right Arm] Blood Pressure Position Supine Blood Pressure Position [Right Arm] 02 Sat by Pulse Oximetry 97 98 Oxygen Delivery Method Room Air Lab Data Lab Results 06/21/24 23:05: Urine Color Yellow, Urine Appearance Clear, Urine pH 6.0, Ur Specific [place] 1.010, Urine Protein Trace, Urine Glucose (UA) Negative, Urine Ketones Negative, Urine Blood Negative, Urine Nitrate Negative, Urine Bilirubin Negative, Urine Urobilinogen 0.2, Ur Leukocyte Esterase 1+ A, Urine RBC None, Urine WBC 5-10, Ur Squamous Epith Cells 3-5, Urine Bacteria Trace 06/21/24 23:07: WBC 6.6, RBC 3.82 L, Hgb 11.5 L, Hct 35.2 L, MCV 92.2, MCH 30.0, MCHC 32.5, RDW 15.9, Plt Count 177, MPV 9.6, Neut % (Auto) 56.0, Lymph % (Auto) 32.8, Richardson % (Auto) 8.1, Eos % (Auto) 2.0, Baso % (Auto) 1.1, Neut # (Auto) 3.7, Lymph # (Auto) 2.2, Richardson # (Auto) 0.5, Eos # (Auto) 0.1, Baso # (Auto) 0.1, PT 11.1, INR 0.99, APTT 29.7, D-Dimer 1.19 H, Sodium 141, Potassium 3.8, Chloride 106, Carbon Dioxide 25, Anion Gap 13.8, BUN 22 H, Creatinine 1.50 H, Estimated Creat Clear 41, Estimated GFR 45 L, Est GFR ( Amer) 54 L, Glucose 118 H, Calcium 9.2, Total Bilirubin 1.2, AST 23, ALT 21, Alkaline Phosphatase 83, Troponin I < 0.01, NT-Pro-B Natriuret Pep 1760 H, Total Protein 7.2, Albumin 4.3, Globulin 2.9, Albumin/Globulin Ratio 1.5 06/22/24 02:45: Troponin I < 0.01 06/22/24 05:08: Troponin I < 0.01 06/21/24 23:07 06/21/24 23:07 Orders (Tests/Meds): ED MEDICATIONS Generic Name Dose Route Start Last Admin Trade Name Freq PRN Reason Stop Dose Admin Nitroglycerin 0.4 mg 06/21/24 23:20 Nitroglycerin 0.4mg Sl Tablet SL 06/22/24 23:21 Q5MINP PRN Chest Pain Sodium Chloride 10 ml 06/22/24 01:28 06/22/24 01:30 Sodium Chloride 0.9% 10ml Syr (Rad Only) IV 07/22/24 01:27 10 ml NEEDED PRN Administration Maintain IV Site Discontinued Medications Generic Name Dose Route Start Last Admin Trade Name Jeramy PRN Reason Stop Dose Admin Aspirin 324 mg 06/21/24 23:20 06/22/24 00:10 Aspirin 81mg Chewable Tablet PO 06/21/24 23:21 324 mg ONCE ONE Administration Iopamidol 70 ml 06/22/24 01:28 06/22/24 01:30 Iopamidol-370 (76%);100ml Bottle IV 06/22/24 01:29 70 ml ONCE ONE Administration Sodium Chloride 50 ml 06/22/24 01:28 06/22/24 01:30 0.9 % Sodium Chloride 50 Ml Vial IV 06/22/24 01:29 50 ml ONCE ONE Administration ORDERS Category Date Time Status CT angio chest PE protocol Stat Cat Scan 06/21/24 23:56 Completed XR chest 2V Stat Exams 06/21/24 23:20 Completed Activated Partial Thrombo Time Stat Lab 06/21/24 23:07 Completed BNP [NT Pro Brain Natriuretic Pep.] Stat Lab 06/22/24 00:00 Completed Complete Blood Count Auto Diff Stat Lab 06/21/24 23:07 Completed Comprehensive Metabolic Panel Stat Lab 06/21/24 23:07 Completed D-Dimer Stat Lab 06/21/24 23:07 Completed Prothrombin Time INR Stat Lab 06/21/24 23:07 Completed Troponin I Q3H Lab 06/22/24 02:45 Completed Troponin I Q3H Lab 06/22/24 05:08 Completed Troponin I Stat Lab 06/21/24 23:20 Completed Urinalysis and Microscopic Stat Lab 06/21/24 23:05 Completed Urine Culture Stat Micro 06/21/24 23:05 Received Medical Decision Narrative: In summary, this 83-year-old male with comorbidities as described in HPI presents to the emergency department today with chest pain/pressure radiating to the arms as well as a complaint of difficulty urinating and low urine output. On initial evaluation patient is hemodynamically stable, afebrile, no reproducible chest pain on exam but patient does report pleuritic pain with deep inspiration, cardiopulmonary exam is benign, no peripheral edema, GCS 15 with no neurodeficits, abdominal exam benign, no CVA tenderness. Differential diagnosis includes but is not limited to ACS, PE, arrhythmia, electrolyte abnormality, esophageal spasm, pneumothorax, regarding patient's urinary complaints I considered urinary tract infection, kidney dysfunction. Patient had a prevoid bladder scan of 207, he then voided and a while later bladder scan was again performed showing 324, I believe this is due to delay in bladder scan after voiding, I will monitor patient's urine output in the ER. Based on these concerns, I ordered serum labs, cardiac workup, chest x-ray, urine studies. ECG personally interpreted demonstrates irregular rhythm, pacemaker present, left axis deviation, rate 73, normal QTc, no STEMI. Patient received aspirin for treatment. Labs personally reviewed demonstrate no leukocytosis, anemia stable from prior, CMP nonactionable, patient's kidney function appears stable from prior with creatinine 1.5, similar to 4 days ago, no actionable electrolyte abnormalities, initial troponin undetectably low less than 0.01. Patient does have findings of fluid overload with BNP 1760, this is actually lower than it has been in the past, UA is not consistent with findings with infection since there are some WBCs however is contaminated with squamous cells, only trace bacteria, negative nitrates. Since patient does not have dysuria, will not treat for infection and will send this for culture instead. XR personally interpreted demonstrates no lobar infiltrate, no pneumothorax, possible mild fluid overload consistent with patient's BNP. D-dimer elevated over 1.1, cannot rule out PE, patient is going for CTA PE for further evaluation. CT imaging personally interpreted demonstrates no large PE, there is some pulmonary edema. See radiology read for full interpretation. Patient is not having any difficulty breathing, saturating well on room air, and with his findings of CKD at baseline as well as difficulty passing urine occasionally, I do not believe it is prudent to administer diuretic at this time since he is not showing clinical signs of fluid overload. Patient was placed into ED observation at 0030 for serial troponins to rule out evolving SD as well as to preclude unnecessary admission. This also gives me the opportunity to monitor patient's urine output. Patient was frequently reassessed, his chest pain had completely resolved and remained absent for the duration of the encounter. He had no changes in his hemodynamics. Serial troponins were undetectably low at 3 hours and 6 hours post arrival. Insert was significantly reassuring against acute cardiac pathology. Patient had over 900 mL urine output total during his stay in the ER, I do not have concerns about significant urinary retention as he is very clearly able to pass adequate amounts of urine and his kidney function is stable. Patient is appropriate for discharge and was given instructions on continued symptomatic monitoring and management, close follow-up with cardiology as well as his urologist, as well as strict return precautions for the ER. He indicated understanding and the patient was discharged in stable condition. Total time in ED observation: 5 hours 10 minutes Critical Care Critical Care Time Critical Care Time: No
[2024-06-22 00:47] LABS: NT Pro Brain Natriuretic Pep. 1760 pg/mL (0-450)
[2024-06-22] MEDS: SODIUM CHLORIDE 0.9% 10ML SYR (RAD ONLY) 10 ML IV (01:30)
[2024-06-22] MEDS: 0.9 % SODIUM CHLORIDE 50 ML VIAL IV (01:30)
[2024-06-22] MEDS: IOPAMIDOL-370 (76%);100ML BOTTLE 70 ML IV (01:30)
[2024-06-22 03:14] LABS: Troponin I < 0.01 ng/ml (0.00-0.034)
[2024-06-22 05:36] LABS: Troponin I < 0.01 ng/ml (0.00-0.034)
== END 2024-06-22 05:46 | disposition home or self-care (01) ==
PROVIDERS: Emergency Medicine; Emergency Provider Emergency Medicine; PCP Family Medicine
DX: R07.9 Chest pain, unspecified (principal); R20.2 Paresthesia of skin; R79.89 Other specified abnormal findings of blood chemistry; Z95.0 Presence of cardiac pacemaker; Z79.01 Long term (current) use 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s
CPT/HCPCS: 71046; 71275; 80053; 81001; 83880; 84484; 85025; 85378; 85610; 85730; 87086; 93005; 99285; Q9967

== ENCOUNTER 2024-07-20 19:00 | Observation (INO) | payer MEDICARE, OTHER, SELFPAY ==
[2024-07-20] VITALS (7 sets, daily range): BP systolic 122–199; BP diastolic 57–91; PULSE 72–101; RESP 20–29; TEMP 36.6–37.1; O2SAT 92–100; BMI 31.8; BMI 30.3
--- NOTE | 2024-07-20 19:07 | ECG_ITS ---
APPROVED REPORT Exam: Resting ECG HR:86 bpm ECG Measurements Heart Rate 86 AXES QRSd 117 QRS -73 QT 363 T 104 QTc 406 Conclusion UNCERTAIN IRREGULAR RHYTHM ELECTRONIC VENTRICULAR PACEMAKER -- CONTOUR ANALYSIS BASED ON INTRINSIC RHYTHM LEFT AXIS DEVIATION [QRS AXIS < -30] POSSIBLE ANTERIOR MYOCARDIAL INFARCTION , OF INDETERMINATE AGE [30 ms Q WAVE IN V3/V4, OR R < 0.2 mV IN V4] ABNORMAL ECG UNCONFIRMED REPORT Electronically signed by : Lam Dial, 07/20/2024 23:27:52
[2024-07-20] MEDS: IPRATROPIUM/ALBUTEROL 3 ML NEB IH (19:15)
--- NOTE | 2024-07-20 19:20 | XR_ITS ---
PROCEDURE INFORMATION: Exam: XR Chest Exam date and time: 07/20/2024 7:30 PM Age: 83 years old Clinical indication: Dyspnea TECHNIQUE: Imaging protocol: Radiologic exam of the chest. Views: 1 view. COMPARISON: CT ANGIO CHEST PE PROTOCOL 06/22/2024 12:40 AM FINDINGS: Tubes, catheters and devices: Pacer wire. Lungs: Normal pulmonary vessels. Left mid lung nodule measuring 10.5 mm . No focal infiltrates. Pleural spaces: Unremarkable. No pleural effusion. No pneumothorax. Heart/Mediastinum: Mild cardiomegaly. Bones/joints: Unremarkable. IMPRESSION: 1. Mild cardiomegaly. 2. Pacer wire. 3. Normal pulmonary vessels. 4. Left mid lung nodule measuring 10.5 mm . 5. No focal infiltrates.
[2024-07-20] MEDS: ALBUTEROL 0.083% 2.5 MG/3 ML NEB 20 MG IH (19:25)
--- NOTE | 2024-07-20 19:28 | ED_ITS ---
Discharge Plan Disposition Patient Disposition: Admitted Chief Complaint: Shortness of Breath/Dyspnea Prescriptions Prescriptions: No Action apixaban [Eliquis] 5 mg tablet 5 mg PO BID omeprazole 20 mg capsule,delayed release(DR/EC) 20 mg PO DAILY Patient Comments: TAKE ONE CAPSULE BY MOUTH EVERY DAY 30 minutes BEFORE morning meal nystatin-triamcinolone 100,000-0.1 unit/g-% cream 1 applic topical BID 30 Days Qty: 30 0RF carvedilol 6.25 mg tablet 6.25 mg PO Patient Comments: TAKE ONE TABLET BY MOUTH TWICE DAILY WITH FOOD amlodipine 5 mg tablet 5 mg PO Patient Comments: TAKE ONE TABLET BY MOUTH EVERY DAY lisinopril 5 mg tablet 5 mg PO DAILY Patient Comments: TAKE ONE TABLET BY MOUTH EVERY DAY levofloxacin 500 mg tablet 500 mg PO DAILY 5 Days Qty: 5 0RF Rx Instructions: Start this medicine Monday02-17-2024 tamsulosin 0.4 mg capsule 0.8 mg PO DAILY 90 Days Qty: 180 1RF finasteride [Proscar] 5 mg tablet 5 mg PO DAILY Qty: 90 3RF metformin 500 MG tablet extended release 24 hr 1,000 mg PO DAILY ferrous sulfate [FeroSul] 325 mg (65 mg iron) tablet 325 mg PO DAILY famotidine 40 mg tablet 40 mg PO HS Patient Comments: TAKE ONE TABLET BY MOUTH EVERY DAY AT BEDTIME clopidogrel 75 mg tablet 75 mg PO DAILY nitroglycerin 0.4 mg tablet, sublingual 0.4 mg sublingual Q5MINP PRN (Reason: chest pain) Rx Instructions: do not exceed 3 doses per episode atorvastatin 80 MG tablet 80 mg PO HS gabapentin 300 mg capsule 300 mg PO BID [id number] 1 EACH blister with device 1 puff IH DAILY Referrals Follow up/Referrals: Colby Quan MD [Primary Care Provider] - See instructions Clinical Impressions Clinical Impression: Acute exacerbation of chronic obstructive pulmonary disease, Acute respiratory distress Print Language Print Language: Maltese Discharge ED Provider: Gaurang Dial General Adult HPI General Chief complaint: Shortness of Breath/Dyspnea Stated complaint: Cough,wheezing,SOA Time Seen by Provider: 07/20/24 19:04 Mode of Arrival: Ambulatory Source of Information: Patient and Relative Limitations: No Limitations Description of Symptoms (Recalled from ER Triage Doc. by RN): shortness of breath. wheezing History of Present Illness HPI narrative: 83-year-old with history of COPD as well as heart failure with preserved ejection fraction and grade 3 diastolic dysfunction who presents today with shortness of breath cough and wheezing. Does have some lower extremity edema as well. No fevers or chills. Wears oxygen at home but does not wear oxygen during the day. Does not wear any type of noninvasive positive pressure ventilation at home. Related Data Home Medications ?Medication ?Instructions ?Recorded ?Confirmed atorvastatin 80 mg tablet 80 mg PO HS 09/10/17 06/17/24 apixaban 5 mg tablet (Eliquis) 5 mg PO BID 01/29/18 06/17/24 gabapentin 300 mg capsule 300 mg PO BID 01/20/20 06/17/24 fluticasone fur. 100 mcg-umeclid 1 puff inhalation DAILY 05/15/20 06/17/24 62.5 mcg-vilant 25 mcg inhalat.powder metformin 500 mg tablet,extended 1,000 mg PO DAILY 11/29/20 06/17/24 release 24 hr famotidine 40 mg tablet 40 mg PO HS 05/07/23 06/17/24 ferrous sulfate 325 mg (65 mg 325 mg PO DAILY 05/07/23 06/17/24 iron) tablet (FeroSul) lisinopril 5 mg tablet 5 mg PO DAILY 08/09/23 06/17/24 omeprazole 20 mg capsule,delayed 20 mg PO DAILY 11/08/23 06/17/24 release clopidogrel 75 mg tablet 75 mg PO DAILY 02/04/24 06/17/24 nitroglycerin 0.4 mg sublingual 0.4 mg sublingual Q5MINP PRN chest 02/05/24 06/17/24 tablet pain amlodipine 5 mg tablet 5 mg PO 03/25/24 06/17/24 carvedilol 6.25 mg tablet 6.25 mg PO 03/25/24 06/17/24 Previous Rx's ?Medication ?Instructions ?Recorded levofloxacin 500 mg tablet 500 mg PO DAILY 5 days #5 tabs 02/12/24 nystatin-triamcinolone 100,000 1 applic topical BID 30 days #30 02/19/24 unit/g-0.1 % topical cream grams finasteride 5 mg tablet (Proscar) 5 mg PO DAILY #90 tabs 02/27/24 tamsulosin 0.4 mg capsule 0.8 mg (2 x 0.4 mg) PO DAILY 90 02/27/24 days #180 caps Allergies Allergy/AdvReac Type Severity Reaction Status Date / Time Penicillins Allergy Verified 06/17/24 08:55 [facility] Disclaimer: The information contained in this section may have been updated after the patient was seen, as this information can be updated by other users. 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 HTN (hypertension) HLD (hyperlipidemia) RHONDA (renal artery stenosis) Dyspnea Edema Congestive heart failure COPD (chronic obstructive pulmonary disease) CAD (coronary artery disease) Surgical History History of cholecystectomy History of renal stent Family History Sister Breast cancer Son Diabetes Sister Leukemia Social History (Updated 06/22/24 @ 05:46 by Marti Polo MD) Smoking Status: Former smoker tobacco type: cigarettes packs per day: 1 years smoked: 35 second hand exposure: No alcohol intake: never counseling provided: none substance use type: denies use current occupational status: retired Travel in the last 8 weeks: None household members: children housing: house current occupational exposures/hazards: No caffeine: Yes Have you lived/traveled outside [place] in past 30 days?: No Contact w/someone who lives/traveled outside US past 30 days?: No Exposure to someone with infectious disease in past 14 days?: No Do you have a fever (greater than 100.4 F or 38 C)?: No Have you tested positive for COVID-19: No Exposed to someone with COVID-19 in past 14 days?: No Do you have a sore throat?: No Do you have a cough?: Yes Do you have any weakness?: No Do you have any diarrhea?: No Are you experiencing any unusual bleeding?: No Do you have any muscle aches/pain?: No Do you have any abdominal pain?: No Are you experiencing loss of taste or smell?: No Other Medical History Have you received the Flu Vaccine for this season: No Have you received the Pneumonia Vaccine: No ROS Obtained: Yes All systems reviewed & no additional complaints except as documented Physical Exam General General appearance: in distress (Increased work of breathing) Respiratory Respiratory exam: Present other (Patient speaking in fragmented sentences prolonged expiratory phase and diffuse wheezing throughout) Cardiovascular Cardiovascular exam: Present tachycardia Neurological Exam Neurological exam: Present alert, oriented X3 and other (Nonfocal) Medical Decision Making Medical Records Screening: Per USPSTF and CDC recommendations, given the prevalence of disease in our region, it is our hospital?s policy to screen for HIV and viral Hepatitis for all patients aged 18 and over and those with ongoing risk factors. [place] Inquiry Pt receiving controlled substance: No Vital Signs: 07/20/24 19:01 07/20/24 19:15 07/20/24 19:15 Temperature 98.8 F Temperature Source Oral Pulse Rate 81 Pulse Rate [Right] 101 H Respiratory Rate 26 H Blood Pressure Blood Pressure [Right Arm] 199/91 H Blood Pressure Mean Blood Pressure Mean [Right Arm] 127 02 Sat by Pulse Oximetry 92 L 98 Oxygen Delivery Method Room Air Nasal Cannula Oxygen Flow Rate (LPM) 2 07/20/24 19:15 07/20/24 19:25 07/20/24 20:01 Temperature Temperature Source Pulse Rate 79 72 75 Pulse Rate [Right] Respiratory Rate 29 H Blood Pressure 189/84 H Blood Pressure [Right Arm] Blood Pressure Mean 119 Blood Pressure Mean [Right Arm] 02 Sat by Pulse Oximetry 100 Oxygen Delivery Method Oxygen Flow Rate (LPM) Lab Data Lab results reviewed: Yes I reviewed the patient's lab results. Lab Results 07/20/24 19:10: SARS-CoV-2 (PCR) Not detected, Influenza A Untype (PCR) Not detected, Influenza Type B (PCR) Not detected 07/20/24 19:21: VBG pH 7.35, VBG pCO2 45.0, VBG pO2 33.1, VBG HCO3 24.0, VBG Total CO2 25.4, VBG O2 Saturation 60.6, VBG Base Excess -1.7, VBG Lactic Acid 1.9 07/20/24 19:48: WBC 11.0 H, RBC 3.67 L, Hgb 10.7 L, Hct 34.3 L, MCV 93.5, MCH 29.2, MCHC 31.2 L, RDW 14.6, Plt Count 167, MPV 12.3 H, Neut % (Auto) 73.1, Lymph % (Auto) 13.3, [place] % (Auto) 12.0 H, Eos % (Auto) 1.0, Baso % (Auto) 0.3, Neut # (Auto) 8.1 H, Lymph # (Auto) 1.5, [place] # (Auto) 1.3 H, Eos # (Auto) 0.1, Baso # (Auto) 0.0, D-Dimer 1.31 H, Sodium 139, Potassium 4.2, Chloride 107, Carbon Dioxide 25, Anion Gap 11.2, BUN 22 H, Creatinine 1.60 H, Estimated Creat Clear 40, Estimated GFR 41 L, Est GFR ( Amer) 50 L, Glucose 165 H, Calcium 8.7, Total Bilirubin 2.1 H, AST 29, ALT 21, Alkaline Phosphatase 76, Troponin I < 0.01, NT-Pro-B Natriuret Pep 4610 H, Total Protein 7.0, Albumin 4.0, Globulin 3.0, Albumin/Globulin Ratio 1.3 07/20/24 19:48 07/20/24 19:48 Orders (Tests/Meds): ED MEDICATIONS Generic Name Dose Route Start Last Admin Trade Name Freq PRN Reason Stop Dose Admin Doxycycline Hyclate 100 mg 07/20/24 21:28 Doxycycline Hycl 100 Mg Tablet PO 07/20/24 21:29 ONCE ONE Discontinued Medications Generic Name Dose Route Start Last Admin Trade Name Freq PRN Reason Stop Dose Admin Albuterol Sulfate 20 mg 07/20/24 19:25 07/20/24 19:25 Albuterol 0.083% 2.5 Mg/3 Ml Neb IH 07/20/24 19:26 20 mg ONCE ONE Administration Albuterol/Ipratropium 3 ml 07/20/24 19:20 07/20/24 19:15 Ipratropium/Albuterol 3 Ml Neb IH 07/20/24 19:21 3 ml ONCE ONE Administration Magnesium Sulfate 2 gm in 50 mls @ 50 mls/hr 07/20/24 19:20 07/20/24 19:48 Magnesium Sulfate 2gm/50ml Premix IV 07/20/24 20:19 50 mls/hr ONCE ONE Administration Iopamidol 70 ml 07/20/24 21:13 07/20/24 21:14 Iopamidol-370 (76%);100ml Bottle IV 07/20/24 21:14 70 ml ONCE ONE Administration Methylprednisolone Sodium Succinate 125 mg 07/20/24 19:20 07/20/24 19:48 Methylprednisolone Sod Succ 125mg Vial IV 07/20/24 19:21 125 mg ONCE ONE Administration Sodium Chloride 50 ml 07/20/24 21:13 07/20/24 21:14 0.9 % Sodium Chloride 50 Ml Vial IV 07/20/24 21:14 50 ml ONCE ONE Administration Sodium Chloride 10 ml 07/20/24 21:13 07/20/24 21:14 Sodium Chloride 0.9% 10ml Syr (Rad Only) IV 07/20/24 21:14 10 ml ONCE ONE Administration ORDERS Category Date Time Status CT angio chest PE protocol Stat Cat Scan 07/20/24 20:42 Taken CXR --portable [XR chest portable] Stat Exams 07/20/24 19:20 Taken POCUS Point of Care (ER Only) Stat Exams 07/20/24 19:15 Taken BNP [NT Pro Brain Natriuretic Pep.] Stat Lab 07/20/24 19:48 Completed CBC w/Auto Diff [Complete Blood Count Auto Diff] Stat Lab 07/20/24 19:48 Completed CMP [Comprehensive Metabolic Panel] Stat Lab 07/20/24 19:48 Completed D-Dimer Stat Lab 07/20/24 19:48 Completed HIV Combo Stat Lab 07/20/24 19:48 Received Hep C Ab with Reflex to RNA Stat Lab 07/20/24 19:48 Received Rapid PCR Covid and Flu A/B Stat Lab 07/20/24 19:10 Completed Trop I [Troponin I] Stat Lab 07/20/24 19:48 Completed Troponin I Q3H Lab 07/20/24 22:30 Ordered Troponin I Q3H Lab 07/21/24 01:30 Ordered Venous Blood Gas Stat RT 07/20/24 19:21 Completed Medical Decision Narrative: 83-year-old with above history and physical presenting today with dyspnea limited bedside ultrasound was used to differentiate heart failure versus COPD exacerbation and there was not a significant mount of pulmonary edema or there were some B-lines he did not have pleural effusions and his EF was preserved therefore the majority of this seems to be COPD in nature. He is working pretty hard currently holding off on noninvasive positive pressure ventilation will give a DuoNeb and continuous albuterol as well as magnesium and Solu-Medrol and reassess. Other things in the differential include pulmonary embolism pneumonia CHF etc. Chest x-ray performed which I personally interpreted shows no acute cardiopulmonary abnormalities patient had an elevated D-dimer got a CT PE which I personally interpreted which shows no acute lung consolidation or pulmonary embolism. On reassessment clinically patient still has significant increased work of breathing will require admission for further evaluation and management. I discussed the case with Dr. Quan given the fact that he has a history of diastolic dysfunction and has some mild pulmonary edema we will give also a dose of Lasix to see if that improves him. Patient will be admitted for further evaluation and management. Procedures Miscellaneous Procedure Procedure Performed: Limited cardiac ultrasound Indication: Dyspnea Identified structures: The heart was visualized in the parasternal long axis, parastenal short axis, apical four chamber and subxyphiod views. The IVC was visualized in the short axis and long axis at its entry into the right atrium. Findings: Normal LVEF no severe right heart strain no pericardial effusion Impression: Unremarkable limited ultrasound of the heart Images were to permanent archive The study was technically adequate CPT: 75436-38 This study was performed by ak, and I personally interpreted all images/videos. Based on my clinical judgement, these images were adequate and did not necessitate further imaging. Limited lung ultrasound A focused ultrasound exam of the pleural spaces was performed to evaluate for pneumothorax, pulmonary edema, pleural effusion and/or consolidation. The ultrasound was performed with the following indications, as noted in the H&P: Dyspnea Identified structures: Right and thoracic cavities were examined. Findings: Lung sliding: Lung sliding present throughout there are B-lines in all lung trejo but scant no pleural effusions no Impression: No evidence of pneumothorax or pleural effusion, there are B-lines throughout no focal consolidation noted Images were saved to permanent archive The study was technically adequate CPT 11526-95 This study was performed by ak, and I personally interpreted all images/videos. Based on my clinical judgement, these images were added and did not necessitate further imaging. Critical Care Critical Care Time Critical Care Time: Yes Attestation: On 07/20/24, the high probability of a clinically significant, sudden or life threatening deterioration of the following system(s) required my full and direct attention, intervention and personal management. The time I documented below is in addition to time spent performing reported procedures but includes the following listed in this critical care notation. Total Time Total Critical Care Time: 35
[2024-07-20] MEDS: MAGNESIUM SULFATE IN WATER 2 GM/50 ML PIGGYBACK IV (19:48)
[2024-07-20] MEDS: METHYLPREDNISOLONE SOD SUCC 125MG VIAL 125 MG IV (19:48)
[2024-07-20 19:49] LABS: Lactate Venous 1.9 mmol/L (0.4-2.0); VBG Base Excess -1.7 mmol/L (-2.4-2.3); VBG Oxygen Saturation 60.6 % (50-70); VBG PH 7.35 mmol/L (7.31-7.41); VBG PO2 33.1 mmol/L (28-40); VBG Total CO2 25.4 mmol/L (23-27)
[2024-07-20 19:59] LABS: Coronavirus 19, PCR Not Detected (NotDetected); Influenza A, PCR Not Detected (NotDetected); Influenza B, PCR Not Detected (NotDetected)
[2024-07-20 20:07] LABS: Basophils % 0.3 % (0.1-2.0); Hematocrit 34.3 % (42.0-52.0); Hemoglobin 10.7 g/dL (14.1-18.0); Lymphocytes % 13.3 % (10-50); Mean Corpuscular HGB Conc 31.2 g/dL (31.8-35.4); Mean Corpuscular Hemoglobin 29.2 pg (27.0-31.2); Mean Corpuscular Volume 93.5 fl (80-94); Mean Platelet Volume 12.3 fl (7.4-10.4); Neutrophils % 73.1 % (37.0-80.0); Platelet Count 167 K/mm3 (142-424); Red Blood Count 3.67 M/mm3 (4.60-6.20); Red Cell Distribution Width 14.6 % (11.5-17.5)
[2024-07-20 20:08] LABS: Eosinophils # 0.1 K/mm3 (0.0-0.4); Lymphocytes # 1.5 K/mm3 (0.7-4.5); Monocytes # 1.3 K/mm3 (0.1-1.0); Neutrophils # 8.1 K/mm3 (1.8-7.8)
[2024-07-20 20:12] LABS: Alanine Aminotransferase 21 U/L (12-78); Albumin/Globulin Ratio 1.3 (1.1-1.8); Alkaline Phosphatase 76 U/L (38-126); Anion Gap 11.2 mEq/L (5-15); Aspartate Amino Transferase 29 U/L (17-59); Bilirubin,Total 2.1 mg/dl (0.2-1.3); Blood Urea Nitrogen 22 mg/dl (9-20); Calcium 8.7 mg/dl (8.4-10.2); Carbon Dioxide 25 mmol/L (22.0-30.0); Chloride 107 mmol/L (98-107); Creatinine Clearance Estimated 40 mL/min (50-200); Estimated Glomerular Filt Rate 41 ml/min (>60); GFR (African American) 50 ML/MIN (>60); Glucose 165 mg/dl (74-100); Potassium 4.2 mmoL/L (3.5-5.1); Sodium 139 mmol/L (136-145)
[2024-07-20 20:17] LABS: D-Dimer 1.31 ug/mL (0.0-0.5)
[2024-07-20 20:26] LABS: NT Pro Brain Natriuretic Pep. 4610 pg/mL (0-450); Troponin I < 0.01 ng/ml (0.00-0.034)
--- NOTE | 2024-07-20 20:42 | CT_ITS ---
PROCEDURE INFORMATION: Exam: CTA Chest With Contrast Exam date and time: 07/20/2024 9:05 PM Age: 83 years old Clinical indication: Dyspnea; Additional info: Dyspnea, elevated d dimer TECHNIQUE: Imaging protocol: Computed tomographic angiography of the chest with contrast. Exam focused on the arteries. 3D rendering (Not supervised by radiologist): MIP and/or 3D reconstructed images were created by the technologist. Radiation optimization: All CT scans at this facility use at least one of these dose optimization techniques: automated exposure control; mA and/or kV adjustment per patient size (includes targeted exams where dose is matched to clinical indication); or iterative reconstruction. Contrast material: ISOVUE; Contrast volume: 70 ml; Contrast route: INTRAVENOUS (IV); COMPARISON: CT ANGIO CHEST PE PROTOCOL 06/22/2024 12:40 AM FINDINGS: Tubes, catheters and devices: Status post left subclavian cardiac pacer/defibrillator. Pulmonary arteries: The main pulmonary artery is normal in caliber. No acute pulmonary emboli. Aorta: Severely atherosclerotic thoracic aorta without aneurysm or dissection. Lungs: Left lung nodule measuring 9.9 mm image 7/60 and coronal image 1001/62 with some small satellite nodules and moderate spiculation. Diffuse bronchial wall thickening/cuffing. Mild bibasilar atelectasis. No airspace consolidation. Right greater than left apical subpleural blebs. Pleural spaces: Small bilateral pleural effusions. Focal pleural lipomatosis anterolateral left hemithorax corresponding with chest radiographic density. No pneumothorax. Heart: Trace pericardial effusion. Mild biatrial dilatation. Coronary arteries: Severe coronary artery calcifications. Lymph nodes: Progressive mediastinal and bilateral hilar lymphadenopathy compared with 06/22/2024 including partially calcified lymph nodes. Index nodes include prevascular space node measuring 16.6 mm image 5/51 and AP window node measuring 21 mm image 5/53. Intraperitoneal space: No acute process in the upper abdomen. There has been a cholecystectomy. Right adrenal nodule measuring 11.7 mm. 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 Remote mild anterior wedging of the T12 vertebral body. Soft tissues: Unremarkable. Other findings: Limitations imposed by moderate respiratory motion artifact. IMPRESSION: 1. No airspace consolidation. 2. No acute pulmonary emboli. 3. Left lung nodule measuring 9.9 mm image 7/60 and coronal image 1001/62 with some small satellite nodules and moderate spiculation 4. Small bilateral pleural effusions 5. Progressive mediastinal and bilateral hilar lymphadenopathy compared with 06/22/2024 including partially calcified lymph nodes. Index nodes include prevascular space node measuring 16.6 mm image and AP window node measuring 21 mm image . PET-CT may be helpful to assess metabolic activity of the nodes. 6. Bronchial wall thickening/peribronchial cuffing with narrowed bronchial lumens. 7. Severe coronary artery calcifications 8. Trace pericardial effusion. 9. Right adrenal nodule measuring 11.7 mm. This measures 30 Hounsfield units. MRI recommended. 10. Other (less critical/noncritical/incidental) findings as above; please refer to the body of report for further details. For patients at low risk (minimal or absent history of smoking and of other known risk factors), recommend CT Chest at 3-6 months, then consider CT Chest at 18-24 months. For patients at high risk (history of smoking or of other known risk factors), recommend CT Chest at 3-6 months, then CT Chest at 18-24 months. (Reference: Shavon) References: Shavon Martínez, et al. Guidelines for Management of Incidental Pulmonary Nodules Detected on CT Images: From the Fleischner Society 2017. Radiology. 2017;284(1):228-243.
[2024-07-20] MEDS: SODIUM CHLORIDE 0.9% 10ML SYR (RAD ONLY) 10 ML IV (21:14)
[2024-07-20] MEDS: 0.9 % SODIUM CHLORIDE 50 ML VIAL IV (21:14)
[2024-07-20] MEDS: IOPAMIDOL-370 (76%);100ML BOTTLE 70 ML IV (21:14)
--- NOTE | 2024-07-20 21:33 | PC.NURSE ---
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
[2024-07-20 21:45] LABS: HIV Combo NEGATIVE (Negative)
--- NOTE | 2024-07-20 22:03 | PC.NURSE ---
Report called to MARCELLO AGUILAR
--- NOTE | 2024-07-20 22:07 | PC.NURSE ---
Avelina REDDY called at this time for verbal orders to be entered for the patient.
--- NOTE | 2024-07-20 22:14 | PC.NURSE ---
Patient arrived to floor via stretcher from ED at 22:11.
[2024-07-20] MEDS: FUROSEMIDE 40MG/4ML VIAL 40 MG IV (22:28)
[2024-07-20] MEDS: DOXYCYCLINE HYCL 100 MG TABLET PO (22:28)
[2024-07-20 23:58] LABS: Troponin I 0.01 ng/ml (0.00-0.034)
[2024-07-21 02:04] LABS: Troponin I 0.01 ng/ml (0.00-0.034)
[2024-07-21 04:00] VITALS: BP 105/54; PULSE 72; RESP 18; TEMP 36.6; O2SAT 100; BMI 28.8
--- NOTE | 2024-07-21 04:11 | PC.NURSE ---
Mr Guevara Kim was newly admitted this shift on behalf of the following documented diagnosis: COPD exacerbation. Patient and daughter reported that his respiratory symptoms and shortness of breath have been worsening over the past couple days. Patient is alert and oriented x4 but presented being hard of hearing. Upon auscultation of his lungs, expiratory wheezing could be heard. Auscultation of his heart and bowels were within normal findings. Patient's bilateral ankles had trace swelling during assessment. He was given PO doxycycline and IV lasix per SEP. Admission assessment and home medication reconciliation were completed this shift. Patient was observed to have eyes closed, respirations even and unlabored on 2 L of oxygen via nasal cannula, and no apparent distress throughout the night. Patient's oxygen saturations have remained > 90% this shift. He has a bruise on his left elbow due to a previous fall at [facility]. Patient states that he uses his personal cane to steady himself during ambulation due to easy overexertion. He has not had any complaints of pain, worsening shortness of breath, nor nausea thus far this shift. At this time, the patient is resting supine at bed. A family member remains at the bedside. No acute changes noted thus far. Call light within reach.
--- NOTE | 2024-07-21 07:40 | HMH.PHAINT1 ---
Pharmacy Intervention Comments: Home medication list verified using list from outpatient pharmacy
[2024-07-21 08:00] VITALS: BP 137/61; PULSE 72; RESP 17; TEMP 36.6; O2SAT 94; O2SAT 96
--- NOTE | 2024-07-21 08:28 | P.HP_ITS ---
History of Present Illness *Admission Date: 07/20/24 *Reason for visit:: Difficulty breathing *History of present illness: Mr. Kim is an 83 year old patient of [facility], with a history of COPD, CAD and grade 3 diastollic dysfunction, who presented to [facility] ER last night with trouble breathing. He states his symptoms started earlier in the day yesterday after he was outside in the cold weather for several hours. He states he has been taking all of his regular medications. He had no recent travel or sick contacts. He typically uses supplemental oxygen when he sleeps. [facility] Disclaimer: The information contained in this section may have been updated after the patient was seen, as this information can be updated by other users. 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 HTN (hypertension) HLD (hyperlipidemia) RHONDA (renal artery stenosis) Dyspnea Edema Congestive heart failure COPD (chronic obstructive pulmonary disease) CAD (coronary artery disease) Surgical History (Updated 07/21/24 @ 08:35 by Colby Quan MD) History of heart artery stent S/P cardiac pacemaker procedure S/P cataract extraction History of cholecystectomy History of renal stent Family History Diabetes Son Heart disease Leukemia Sister Breast cancer Sister Social History Smoking Status: Former smoker tobacco type: cigarettes packs per day: 1 years smoked: 35 second hand exposure: No alcohol intake: never counseling provided: none substance use type: denies use current occupational status: retired Travel in the last 8 weeks: None household members: children housing: house current occupational exposures/hazards: No caffeine: Yes Have you lived/traveled outside [place] in past 30 days?: No Contact w/someone who lives/traveled outside US past 30 days?: No Exposure to someone with infectious disease in past 14 days?: No Do you have a fever (greater than 100.4 F or 38 C)?: No Have you tested positive for COVID-19: No Exposed to someone with COVID-19 in past 14 days?: No Do you have a sore throat?: No Do you have a cough?: Yes Do you have any weakness?: No Do you have any diarrhea?: No Are you experiencing any unusual bleeding?: No Do you have any muscle aches/pain?: No Do you have any abdominal pain?: No Are you experiencing loss of taste or smell?: No Other Medical History Have you received the Flu Vaccine for this season: Yes Have you received the Pneumonia Vaccine: Yes Review of Systems Constitutional Constitutional: Denies chills and Denies fever(s) ENT Ears, Nose, Mouth, and Throat: Denies dizziness *Cardiovascular Cardiovascular: Reports chest pain and Reports dyspnea *Respiratory Respiratory: Reports as per HPI, Reports cough and Reports dyspnea *Gastrointestinal Gastrointestinal: Denies abdominal pain *Genitourinary Genitourinary: Denies difficulty urinating *Musculoskeletal Musculoskeletal: Denies arthralgias *Neurologic Neurologic: Denies dizziness Meds Home Medications and Allergies Home Medications ?Medication ?Instructions ?Recorded ?Confirmed ?Type atorvastatin 80 mg tablet 80 mg PO HS 09/10/17 07/20/24 History apixaban 5 mg tablet (Eliquis) 5 mg PO BID 01/29/18 07/20/24 History gabapentin 300 mg capsule 300 mg PO BID 01/20/20 07/20/24 History fluticasone fur. 100 mcg-umeclid 1 puff inhalation DAILY 05/15/20 07/20/24 History 62.5 mcg-vilant 25 mcg inhalat.powder metformin 500 mg tablet,extended 1,000 mg PO DAILY 11/29/20 07/20/24 History release 24 hr famotidine 40 mg tablet 40 mg PO HS 05/07/23 07/20/24 History ferrous sulfate 325 mg (65 mg 325 mg PO DAILY 05/07/23 07/20/24 History iron) tablet (FeroSul) lisinopril 5 mg tablet 5 mg PO DAILY 08/09/23 07/20/24 History omeprazole 20 mg capsule,delayed 20 mg PO DAILY 11/08/23 07/20/24 History release clopidogrel 75 mg tablet 75 mg PO DAILY 02/04/24 07/20/24 History nitroglycerin 0.4 mg sublingual 0.4 mg sublingual Q5MINP PRN chest 02/05/24 07/20/24 History tablet pain levofloxacin 500 mg tablet 500 mg PO DAILY 5 days #5 tabs 02/12/24 07/20/24 Rx finasteride 5 mg tablet (Proscar) 5 mg PO DAILY #90 tabs 02/27/24 07/20/24 Rx tamsulosin 0.4 mg capsule 0.8 mg (2 x 0.4 mg) PO DAILY 90 02/27/24 07/20/24 Rx days #180 caps amlodipine 5 mg tablet 5 mg PO DAILY 03/25/24 07/20/24 History carvedilol 6.25 mg tablet 6.25 mg PO BID 03/25/24 07/20/24 History New Prescriptions to Start Prescriptions: Allergies Allergy/AdvReac Type Severity Reaction Status Date / Time Penicillins Allergy Verified 06/17/24 08:55 Exam Data for Last 24 hours Vital signs and Labs for Last 24 Hours: Temp Pulse Resp BP Pulse Ox O2 Del Method O2 Flow Rate 97.9 F 72 18 105/54 L 100 Nasal Cannula 2 07/21/24 04:00 07/21/24 04:00 07/21/24 04:00 07/21/24 04:00 07/21/24 04:00 07/21/24 06:45 07/21/24 06:45 Laboratory Results - last 24 hr 07/20/24 19:10: SARS-CoV-2 (PCR) Not detected, Influenza A Untype (PCR) Not detected, Influenza Type B (PCR) Not detected 07/20/24 19:21: VBG pH 7.35, VBG pCO2 45.0, VBG pO2 33.1, VBG HCO3 24.0, VBG Total CO2 25.4, VBG O2 Saturation 60.6, VBG Base Excess -1.7, VBG Lactic Acid 1.9 07/20/24 19:48: WBC 11.0 H, RBC 3.67 L, Hgb 10.7 L, Hct 34.3 L, MCV 93.5, MCH 29.2, MCHC 31.2 L, RDW 14.6, Plt Count 167, MPV 12.3 H, Neut % (Auto) 73.1, Lymph % (Auto) 13.3, [place] % (Auto) 12.0 H, Eos % (Auto) 1.0, Baso % (Auto) 0.3, Neut # (Auto) 8.1 H, Lymph # (Auto) 1.5, [place] # (Auto) 1.3 H, Eos # (Auto) 0.1, Baso # (Auto) 0.0, D-Dimer 1.31 H, Sodium 139, Potassium 4.2, Chloride 107, Carbon Dioxide 25, Anion Gap 11.2, BUN 22 H, Creatinine 1.60 H, Estimated Creat Clear 40, Estimated GFR 41 L, Est GFR ( Amer) 50 L, Glucose 165 H, Calcium 8.7, Total Bilirubin 2.1 H, AST 29, ALT 21, Alkaline Phosphatase 76, Troponin I < 0.01, NT-Pro-B Natriuret Pep 4610 H, Total Protein 7.0, Albumin 4.0, Globulin 3.0, Albumin/Globulin Ratio 1.3, HIV Ag/Ab Combo Qual Negative 07/20/24 23:15: Troponin I 0.01 07/21/24 01:35: Troponin I 0.01 I & O for Last 24 hours: Intake & Output 07/18/24 07/19/24 07/20/24 07/21/24 23:59 23:59 23:59 23:59 Intake Total 120 / 120 Output Total 300 / 300 Balance -180 / -180 Weight 171 lb 4.8 oz 162 lb 14.4 oz Constitutional Constitutional: no acute distress Comments: conversant *Routine HEENT Exam Head: Present normocephalic Eye: Present EOMI and PERRL ENT: Present mucous membranes moist Comments: hearing aides in place *Routine Neck Exam Neck: Present supple; Absent lymphadenopathy *Routine Respiratory Exam Respiratory: Present wheezes (bilateral expiratory) *Routine Cardiovascular Exam Cardiovascular: Present RRR *Routine Abdominal Exam Abdominal: Present soft and normoactive bowel sounds; Absent tenderness *Routine Rectal Exam Rectal:: deferred *Routine Genitalia Exam Genitalia:: deferred *Routine Extremities Exam Extremities: Absent cyanosis, clubbing or edema *Routine Skin Exam Skin: Present warm; Absent rash *Routine Neurological Exam Neurological: Present alert and oriented X3 H&P: Result Imaging and Cardiology CT scan - chest: Status: final report Assessment and Plan *Assessment and plan (1) Acute respiratory distress: Status: Acute Category: Medical Code(s): R06.03 - Acute respiratory distress (2) Acute exacerbation of chronic obstructive pulmonary disease: Status: Acute Category: Medical Code(s): J44.1 - Chronic obstructive pulmonary disease with (acute) exacerbation (3) Elevated d-dimer: Status: Acute Category: Medical Code(s): R79.89 - Other specified abnormal findings of blood chemistry (4) Chest pain: Status: Acute Category: Medical Code(s): R07.9 - Chest pain, unspecified (5) BPH loc w urin obs/LUTS: Status: Acute Category: Medical Code(s): N40.1 - Benign prostatic hyperplasia with lower urinary tract symptoms (6) GERD (gastroesophageal reflux disease): Status: Chronic Qualifiers: Esophagitis presence: esophagitis presence not specified Qualified Code(s): K21.9 - Gastro-esophageal reflux disease without esophagitis Category: Medical Code(s): K21.9 - Gastro-esophageal reflux disease without esophagitis (7) PAD (peripheral artery disease): Status: Chronic Category: Medical Code(s): I73.9 - Peripheral vascular disease, unspecified (8) Presence of cardiac pacemaker: Status: Chronic Category: Medical Code(s): Z95.0 - Presence of cardiac pacemaker (9) TIA (transient ischemic attack): Status: Chronic Category: Medical Code(s): G45.9 - Transient cerebral ischemic attack, unspecified (10) Chronic a-fib: Status: Acute Category: Medical Code(s): I48.20 - Chronic atrial fibrillation, unspecified (11) DM2 (diabetes mellitus, type 2): Status: Chronic Qualifiers: Diabetes mellitus skilled nursing insulin use: without local 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 transplanted heart: [place] heart Qualified Code(s): I25.119 - Atherosclerotic heart disease of [place] coronary artery with unspecified angina pectoris Category: Medical Code(s): I25.10 - Atherosclerotic heart disease of [place] coronary artery without angina pectoris (13) COPD (chronic obstructive pulmonary disease): Status: Chronic Qualifiers: COPD type: COPD with acute exacerbation Qualified Code(s): J44.1 - Chronic obstructive pulmonary disease with (acute) exacerbation Category: Medical Code(s): J44.9 - Chronic obstructive pulmonary disease, unspecified (14) Congestive heart failure: Status: Acute Qualifiers: Heart failure chronicity: chronic Heart failure type: diastolic Qualified Code(s): I50.32 - Chronic diastolic (congestive) heart failure Category: Medical Code(s): I50.9 - Heart failure, unspecified (15) HLD (hyperlipidemia): Status: Chronic Qualifiers: Hyperlipidemia type: mixed hyperlipidemia Qualified Code(s): E78.2 - Mixed hyperlipidemia Category: Medical Code(s): E78.5 - Hyperlipidemia, unspecified (16) HTN (hypertension): Status: Chronic Qualifiers: Hypertension type: essential hypertension Qualified Code(s): I10 - Essential (primary) hypertension Category: Medical Code(s): I10 - Essential (primary) hypertension (17) Diastolic dysfunction: Status: Acute Category: Medical Code(s): I51.89 - Other ill-defined heart diseases (18) Pulmonary nodule: Status: Acute Category: Medical Code(s): R91.1 - Solitary pulmonary nodule Plan Patient admitted for further evaluation and treatment. His respiratory status has improved, will continue antibiotics, steroids and neb treatments . Plan to resume some of his home medications today
--- NOTE | 2024-07-21 09:27 | PC.NURSE ---
pt RA sat 96%, pt complained of SOA. pt placed on 1LNC for comfort. sats 98% on 1LNC
[2024-07-21] MEDS: FLUTICASONE/UMECLIDIN/VILANTER 100/62.5/25MCG INHALER 1 PUFF IH (09:35)
[2024-07-21] MEDS: FINASTERIDE 5MG TABLET 5 MG PO (09:36)
[2024-07-21] MEDS: CLOPIDOGREL 75MG TAB 75 MG PO (09:36)
[2024-07-21] MEDS: APIXABAN 5MG TABLET 5 MG PO ×2 (09:36→22:48)
[2024-07-21] MEDS: GABAPENTIN 300MG CAPSULE 300 MG PO ×2 (09:37→22:49)
[2024-07-21] MEDS: DOXYCYCLINE HYCL 100 MG TABLET PO ×2 (09:37→22:49)
[2024-07-21] MEDS: predniSONE 20MG TAB 20 MG PO ×2 (09:37→22:49)
[2024-07-21] MEDS: TAMSULOSIN 0.4MG CAPSULE 0.8 MG PO (09:37)
[2024-07-21 16:00] VITALS: BP 132/70; PULSE 97; RESP 19; TEMP 36.6; O2SAT 99
[2024-07-21 16:31] VITALS: PULSE 69; PULSE 72; O2SAT 96
[2024-07-21] MEDS: IPRATROPIUM/ALBUTEROL 3 ML NEB IH ×2 (16:31→21:33)
--- NOTE | 2024-07-21 18:16 | PC.NURSE ---
pt a&ox4. lying supine in bed watching tv. pt has been up to the chair numerous times this shift. pt has received breathing treatments for wheezing. pt has not complained of pain this shift. pt sats 94-96% on RA, but requests 1LNC for comfort at times. pt tolerating diet well. family at bedside. no complaints at this time. call light within reach.
[2024-07-21 20:00] VITALS: PULSE 68; RESP 18; O2SAT 95
[2024-07-21 21:33] VITALS: PULSE 62; PULSE 68
[2024-07-21] MEDS: ATORVASTATIN 40MG TABLET 80 MG PO (22:49)
[2024-07-21] MEDS: PANTOPRAZOLE 40MG TABLET 40 MG PO (22:49)
[2024-07-21] MEDS: FAMOTIDINE 20MG TABLET 40 MG PO (22:49)
--- NOTE | 2024-07-21 23:02 | PC.NURSE ---
Patient's family member (Dinorah Wright) called at this time to check in on him.
[2024-07-22] VITALS: BP 143/76; PULSE 71; RESP 19; TEMP 36.7
[2024-07-22 01:13] VITALS: PULSE 65; PULSE 70
[2024-07-22] MEDS: IPRATROPIUM/ALBUTEROL 3 ML NEB IH (01:13)
--- NOTE | 2024-07-22 03:05 | PC.NURSE ---
Checked on the patient at this time. Patient's wheezing has slightly eased but still present. He reported that his wheezing is better than before, but he does have slight chest discomfort due to labored breathing. He denied a breathing treatment at this time, stating that he thinks it makes [his] wheezing worse. Patient is resting in bed with no further complaints.
[2024-07-22 04:00] VITALS: BP 181/70; PULSE 71; RESP 21; TEMP 36.6; O2SAT 97; BMI 29.6
--- NOTE | 2024-07-22 04:00 | PC.NURSE ---
Patient is alert and oriented x4. Patient was observed to have both wakeful periods (watching TV) and resting periods (eyes closed, respirations even) sporadically throughout the shift. Patient has reported having worsened wheezing during shift change yesterday, and he was given a breathing treatment during the evening per MAR. He reported that the breathing treatment did not help earlier, but as the night went on, the patient's wheezing slightly eased (see prior note). Patient's oxygen saturation was measured at the 03:00 check, and it was 94% to 95% on 1 L of oxygen via nasal cannula. Upon auscultation of his lungs, inspiratory/expiratory wheezing could be heard. Patient has a dry, wheezy, intermittent cough. At this time, the patient is resting in bed on his left side. A family member has remained at the bedside throughout the shift. Scheduled medications were given per MAR (administration for this patient was late due to other patient interventions/conflicts). He does not have any further complaints at this time. Personal cane at bedside. Call light within reach.
[2024-07-22 07:22] LABS: Chloride 108 mmol/L (98-107); Potassium 4.3 mmoL/L (3.5-5.1); Sodium 136 mmol/L (136-145)
[2024-07-22 07:25] LABS: Anion Gap 10.3 mEq/L (5-15); Blood Urea Nitrogen 35 mg/dl (9-20); Carbon Dioxide 22 mmol/L (22.0-30.0); Creatinine Clearance Estimated 37 mL/min (50-200); Estimated Glomerular Filt Rate 41 ml/min (>60); GFR (African American) 50 ML/MIN (>60)
[2024-07-22 07:26] LABS: Calcium 9.2 mg/dl (8.4-10.2); Glucose 182 mg/dl (74-100)
[2024-07-22 07:46] LABS: Hematocrit 31.8 % (42.0-52.0); Hemoglobin 10.2 g/dL (14.1-18.0); Mean Corpuscular HGB Conc 32.1 g/dL (31.8-35.4); Mean Corpuscular Hemoglobin 29.5 pg (27.0-31.2); Mean Corpuscular Volume 91.9 fl (80-94); Red Blood Count 3.46 M/mm3 (4.60-6.20); White Blood Count 12.3 K/mm3 (4.8-10.8)
[2024-07-22 07:47] LABS: Basophils % 0.1 % (0.1-2.0); Lymphocytes # 0.5 K/mm3 (0.7-4.5); Lymphocytes % 4.2 % (10-50); Mean Platelet Volume 12.2 fl (7.4-10.4); Monocytes # 0.6 K/mm3 (0.1-1.0); Monocytes % 4.5 % (1.7-9.3); Neutrophils # 11.1 K/mm3 (1.8-7.8); Neutrophils % 90.7 % (37.0-80.0); Platelet Count 178 K/mm3 (142-424); Red Cell Distribution Width 14.4 % (11.5-17.5)
[2024-07-22 07:49] LABS: MANUAL DIFFERENTIAL MANUAL DIFFERENTIAL (MANUAL DIFF)
[2024-07-22 08:00] VITALS: BP 178/61; PULSE 65; RESP 20; TEMP 36.6; O2SAT 95
--- NOTE | 2024-07-22 08:44 | P.PN_ITS ---
Subjective *Date: 07/22/24 *Time: 08:44 Interval history: Patient feels better this morning, off of supplemental oxygen now, anxious to go home. Medical Exam Vital signs and Labs for Last 24 Hours: Vital Signs Temp Pulse Pulse Resp BP Pulse Ox O2 Del Method 07/22/24 06:35 Nasal Cannula 07/22/24 05:00 Nasal Cannula 07/22/24 04:00 97.9 F 71 21 181/70 H 97 Nasal Cannula 07/22/24 03:00 Nasal Cannula 07/22/24 01:13 65 07/22/24 01:13 70 07/22/24 01:00 Nasal Cannula 07/22/24 00:00 98.1 F 71 19 143/76 H 07/21/24 23:00 Nasal Cannula 07/21/24 21:33 62 07/21/24 21:33 68 07/21/24 21:00 Nasal Cannula 07/21/24 20:00 68 18 95 Nasal Cannula 07/21/24 18:44 Nasal Cannula 07/21/24 17:00 Room Air 07/21/24 16:31 69 07/21/24 16:31 72 07/21/24 16:31 96 Nasal Cannula 07/21/24 16:00 98 F 97 H 19 132/70 99 Nasal Cannula 07/21/24 15:00 Room Air 07/21/24 13:00 Nasal Cannula 07/21/24 11:00 Nasal Cannula 07/21/24 09:00 Room Air O2 Flow Rate 07/22/24 06:35 1 07/22/24 05:00 1 07/22/24 04:00 1 07/22/24 03:00 1 07/22/24 01:13 07/22/24 01:13 07/22/24 01:00 1 07/22/24 00:00 07/21/24 23:00 1 07/21/24 21:33 07/21/24 21:33 07/21/24 21:00 1 07/21/24 20:00 1 07/21/24 18:44 1 07/21/24 17:00 07/21/24 16:31 07/21/24 16:31 07/21/24 16:31 2 07/21/24 16:00 2 07/21/24 15:00 07/21/24 13:00 1 07/21/24 11:00 1 07/21/24 09:00 Intake and Output 07/21/24 07/22/24 07/22/24 23:59 07:59 15:59 Intake Total 240 / 750 500 / 500 Output Total 0 / 700 1250 / 1250 Balance 240 / 50 -750 / -750 Intake: Intake, Oral Amount 240 / 750 500 / 500 Output: Output, Urine Amount 0 / 700 1250 / 1250 Other: Number of Unmeasured Voids 1 Number of Bowel Movements 1 Weight 167 lb 1.6 oz Patient Weight 07/22/24 23:59 Weight 167 lb 1.6 oz Laboratory Results - last 24 hr 07/22/24 06:17: WBC 12.3 H, RBC 3.46 L, Hgb 10.2 L, Hct 31.8 L, MCV 91.9, MCH 29.5, MCHC 32.1, RDW 14.4, Plt Count 178, MPV 12.2 H, Neut % (Auto) 90.7 H, Lymph % (Auto) 4.2 L, [place] % (Auto) 4.5, Eos % (Auto) 0.0 L, Baso % (Auto) 0.1, Neut # (Auto) 11.1 H, Lymph # (Auto) 0.5 L, [place] # (Auto) 0.6, Eos # (Auto) 0.0, Baso # (Auto) 0.0, Sodium 136, Potassium 4.3, Chloride 108 H, Carbon Dioxide 22, Anion Gap 10.3, BUN 35 H D, Creatinine 1.60 H, Estimated Creat Clear 37, Estimated GFR 41 L, Est GFR ( Amer) 50 L, Glucose 182 H, Calcium 9.2 I & O for Labs for Last 24 Hours: Intake & Output 07/19/24 07/20/24 07/21/24 07/22/24 23:59 23:59 23:59 23:59 Intake Total 600 / 750 500 / 500 Output Total 300 / 700 1250 / 1250 Balance 300 / 50 -750 / -750 Weight 171 lb 4.8 oz 162 lb 14.4 oz 167 lb 1.6 oz Constitutional: Present no acute distress Respiratory: Present normal respiratory effort Cardiac: Present Reg Rate and Rhythm GI: Present normal bowel sounds; Absent tenderness Extremities: Present normal inspection and full ROM Skin: Present intact; Absent erythema Neuro: Present Grossly Intact and moves all extremities Assessment and Plan *Assessment and plan (1) Acute respiratory distress: Status: Acute Category: Medical Code(s): R06.03 - Acute respiratory distress (2) Acute exacerbation of chronic obstructive pulmonary disease: Status: Acute Category: Medical Code(s): J44.1 - Chronic obstructive pulmonary disease with (acute) exacerbation (3) Elevated d-dimer: Status: Acute Category: Medical Code(s): R79.89 - Other specified abnormal findings of blood chemistry (4) Chest pain: Status: Acute Category: Medical Code(s): R07.9 - Chest pain, unspecified (5) BPH loc w urin obs/LUTS: Status: Acute Category: Medical Code(s): N40.1 - Benign prostatic hyperplasia with lower urinary tract symptoms (6) GERD (gastroesophageal reflux disease): Status: Chronic Qualifiers: Esophagitis presence: esophagitis presence not specified Qualified Code(s): K21.9 - Gastro-esophageal reflux disease without esophagitis Category: Medical Code(s): K21.9 - Gastro-esophageal reflux disease without esophagitis (7) PAD (peripheral artery disease): Status: Chronic Category: Medical Code(s): I73.9 - Peripheral vascular disease, unspecified (8) Presence of cardiac pacemaker: Status: Chronic Category: Medical Code(s): Z95.0 - Presence of cardiac pacemaker (9) TIA (transient ischemic attack): Status: Chronic Category: Medical Code(s): G45.9 - Transient cerebral ischemic attack, unspecified (10) Chronic a-fib: Status: Acute Category: Medical Code(s): I48.20 - Chronic atrial fibrillation, unspecified (11) DM2 (diabetes mellitus, type 2): Status: Chronic Qualifiers: Diabetes mellitus group home insulin use: without watermelon inspector use Diabetes mellitus complication status: with neurologic complications Diabetes mellitus complication detail: with polyneuropathy Qualified Code(s): E11.42 - Type 2 diabetes mellitus with diabetic polyneuropathy Category: Medical Code(s): E11.9 - Type 2 diabetes mellitus without complications (12) CAD (coronary artery disease): Status: Chronic Qualifiers: Associated angina: with unspecified form of angina Coronary Disease- Associated Artery/Lesion type: [place] artery [place] vs. transplanted heart: [place] heart Qualified Code(s): I25.119 - Atherosclerotic heart disease of [place] coronary artery with unspecified angina pectoris Category: Medical Code(s): I25.10 - Atherosclerotic heart disease of [place] coronary artery without angina pectoris (13) COPD (chronic obstructive pulmonary disease): Status: Chronic Qualifiers: COPD type: COPD with acute exacerbation Qualified Code(s): J44.1 - Chronic obstructive pulmonary disease with (acute) exacerbation Category: Medical Code(s): J44.9 - Chronic obstructive pulmonary disease, unspecified (14) Congestive heart failure: Status: Acute Qualifiers: Heart failure chronicity: chronic Heart failure type: diastolic Qualified Code(s): I50.32 - Chronic diastolic (congestive) heart failure Category: Medical Code(s): I50.9 - Heart failure, unspecified (15) HLD (hyperlipidemia): Status: Chronic Qualifiers: Hyperlipidemia type: mixed hyperlipidemia Qualified Code(s): E78.2 - Mixed hyperlipidemia Category: Medical Code(s): E78.5 - Hyperlipidemia, unspecified (16) HTN (hypertension): Status: Chronic Qualifiers: Hypertension type: essential hypertension Qualified Code(s): I10 - Essential (primary) hypertension Category: Medical Code(s): I10 - Essential (primary) hypertension (17) Diastolic dysfunction: Status: Acute Category: Medical Code(s): I51.89 - Other ill-defined heart diseases (18) Pulmonary nodule: Status: Acute Category: Medical Code(s): R91.1 - Solitary pulmonary nodule Plan OK for discharge home today with antibiotics and oral steroids, office f/u next week.
[2024-07-22] MEDS: APIXABAN 5MG TABLET 5 MG PO (08:54)
[2024-07-22] MEDS: LISINOPRIL 5MG TABLET 5 MG PO (08:54)
[2024-07-22] MEDS: CLOPIDOGREL 75MG TAB 75 MG PO (08:54)
[2024-07-22] MEDS: AMLODIPINE 5MG TABLET 5 MG PO (08:54)
[2024-07-22] MEDS: CARVEDILOL 6.25MG TABLET 6.25 MG PO (08:54)
[2024-07-22] MEDS: GABAPENTIN 300MG CAPSULE 300 MG PO (08:54)
[2024-07-22] MEDS: predniSONE 20MG TAB 20 MG PO (08:55)
[2024-07-22] MEDS: FINASTERIDE 5MG TABLET 5 MG PO (08:55)
[2024-07-22] MEDS: TAMSULOSIN 0.4MG CAPSULE 0.8 MG PO (08:55)
[2024-07-22] MEDS: DOXYCYCLINE HYCL 100 MG TABLET PO (08:55)
[2024-07-22 09:57] LABS: Lymphocytes % 6 % (10-50); Monocytes % 1 % (2-9); Neutrophils % 93 % (42-76); Platelet Estimate Normal; RBC Morphology Normal; Total Cells Counted 100
[2024-07-22 10:08] LABS: HCV Ab Non Reactive (Non Reactive)
--- NOTE | 2024-07-23 10:30 | SW/DCPLANNER ---
Spoke with patients daughter on the phone. Patients daughter stated that he is still doing alot of wheezing when he walks. Patients daughter stated that they are aware of his upscoming appointment and they were able to pepper picker his medicine before leaving the hospital. Patients daughter stated that she has no concerns or questions at this time. Roger Barton
--- NOTE | 2024-07-29 12:35 | P.DS_ITS ---
General Admission date:: 07/20/24 Discharge date: 07/22/24 HPI HPI HPI: Mr. Kim is an 83 year old patient of [facility], with a history of COPD, CAD and grade 3 diastollic dysfunction, who presented to [facility] ER last night with trouble breathing. He states his symptoms started earlier in the day yesterday after he was outside in the cold weather for several hours. He states he has been taking all of his regular medications. He had no recent travel or sick contacts. He typically uses supplemental oxygen when he sleeps. Hospital Course Hospital Course Hospital Course: The patient was admitted and his respiratory status improved. He was continued on antibiotics, steroids, and neb treatments. By 07/22/2024, he was feeling better and was off supplemental oxygen. He was anxious to be discharged home. He was discharged on antibiotics and oral steroids. Exam Data for Last 24 hours Vital signs and Labs for Last 24 Hours: Temp Pulse Resp BP Pulse Ox O2 Del Method O2 Flow Rate 97.8 F 65 20 178/61 H 95 Room Air 1 07/22/24 08:00 07/22/24 08:00 07/22/24 08:00 07/22/24 08:00 07/22/24 08:00 07/22/24 09:00 07/22/24 06:35 Narrative: Constitutional Constitutional: no acute distress Comments: conversant *Routine HEENT Exam Head: Present normocephalic Eye: Present EOMI and PERRL ENT: Present mucous membranes moist Comments: hearing aides in place *Routine Neck Exam Neck: Present supple; Absent lymphadenopathy *Routine Respiratory Exam Respiratory: Present wheezes (bilateral expiratory) *Routine Cardiovascular Exam Cardiovascular: Present RRR *Routine Abdominal Exam Abdominal: Present soft and normoactive bowel sounds; Absent tenderness *Routine Rectal Exam Rectal:: deferred *Routine Genitalia Exam Genitalia:: deferred *Routine Extremities Exam Extremities: Absent cyanosis, clubbing or edema *Routine Skin Exam Skin: Present warm; Absent rash *Routine Neurological Exam Neurological: Present alert and oriented X3 DS: Diagnosis Discharge Diagnosis (1) Acute respiratory distress: Status: Acute Code(s): R06.03 - Acute respiratory distress (2) Acute exacerbation of chronic obstructive pulmonary disease: Status: Acute Code(s): J44.1 - Chronic obstructive pulmonary disease with (acute) exacerbation (3) Elevated d-dimer: Status: Acute Code(s): R79.89 - Other specified abnormal findings of blood chemistry (4) Chest pain: Status: Acute Code(s): R07.9 - Chest pain, unspecified (5) BPH loc w urin obs/LUTS: Status: Acute Code(s): N40.1 - Benign prostatic hyperplasia with lower urinary tract symptoms (6) GERD (gastroesophageal reflux disease): Status: Chronic Code(s): K21.9 - Gastro-esophageal reflux disease without esophagitis Qualifiers: Esophagitis presence: esophagitis presence not specified Qualified Code(s): K21.9 - Gastro-esophageal reflux disease without esophagitis (7) PAD (peripheral artery disease): Status: Chronic Code(s): I73.9 - Peripheral vascular disease, unspecified (8) Presence of cardiac pacemaker: Status: Chronic Code(s): Z95.0 - Presence of cardiac pacemaker (9) TIA (transient ischemic attack): Status: Chronic Code(s): G45.9 - Transient cerebral ischemic attack, unspecified (10) Chronic a-fib: Status: Acute Code(s): I48.20 - Chronic atrial fibrillation, unspecified (11) DM2 (diabetes mellitus, type 2): Status: Chronic Code(s): E11.9 - Type 2 diabetes mellitus without complications Qualifiers: Diabetes mellitus salvage determiner insulin use: without salvage determiner use Diabetes mellitus complication status: with neurologic complications Diabetes mellitus complication detail: with polyneuropathy Qualified Code(s): E11.42 - Type 2 diabetes mellitus with diabetic polyneuropathy (12) CAD (coronary artery disease): Status: Chronic Code(s): I25.10 - Atherosclerotic heart disease of [place] coronary artery without angina pectoris Qualifiers: Associated angina: with unspecified form of angina Coronary Disease- Associated Artery/Lesion type: [place] artery [place] vs. transplanted heart: [place] heart Qualified Code(s): I25.119 - Atherosclerotic heart disease of [place] coronary artery with unspecified angina pectoris (13) COPD (chronic obstructive pulmonary disease): Status: Chronic Code(s): J44.9 - Chronic obstructive pulmonary disease, unspecified Qualifiers: COPD type: COPD with acute exacerbation Qualified Code(s): J44.1 - Chronic obstructive pulmonary disease with (acute) exacerbation (14) Congestive heart failure: Status: Acute Code(s): I50.9 - Heart failure, unspecified Qualifiers: Heart failure chronicity: chronic Heart failure type: diastolic Qual ified Code(s): I50.32 - Chronic diastolic (congestive) heart failure (15) HLD (hyperlipidemia): Status: Chronic Code(s): E78.5 - Hyperlipidemia, unspecified Qualifiers: Hyperlipidemia type: mixed hyperlipidemia Qualified Code(s): E78.2 - Mixed hyperlipidemia (16) HTN (hypertension): Status: Chronic Code(s): I10 - Essential (primary) hypertension Qualifiers: Hypertension type: essential hypertension Qualified Code(s): I10 - Essential (primary) hypertension (17) Diastolic dysfunction: Status: Acute Code(s): I51.89 - Other ill-defined heart diseases (18) Pulmonary nodule: Status: Acute Code(s): R91.1 - Solitary pulmonary nodule Meds Home Medications and Allergies Home Medications ?Medication ?Instructions ?Recorded ?Confirmed ?Type atorvastatin 80 mg tablet 80 mg PO HS 09/10/17 07/23/24 History apixaban 5 mg tablet (Eliquis) 5 mg PO BID 01/29/18 07/23/24 History gabapentin 300 mg capsule 300 mg PO BID 01/20/20 07/23/24 History fluticasone fur. 100 mcg-umeclid 1 puff inhalation DAILY 05/15/20 07/23/24 History 62.5 mcg-vilant 25 mcg inhalat.powder metformin 500 mg tablet,extended 1,000 mg PO DAILY 11/29/20 07/23/24 History release 24 hr famotidine 40 mg tablet 40 mg PO HS 05/07/23 07/23/24 History ferrous sulfate 325 mg (65 mg 325 mg PO DAILY 05/07/23 07/23/24 History iron) tablet (FeroSul) lisinopril 5 mg tablet 5 mg PO DAILY 08/09/23 07/23/24 History omeprazole 20 mg capsule,delayed 20 mg PO DAILY 11/08/23 07/23/24 History release clopidogrel 75 mg tablet 75 mg PO DAILY 02/04/24 07/23/24 History nitroglycerin 0.4 mg sublingual 0.4 mg sublingual Q5MINP PRN chest 02/05/24 07/23/24 History tablet pain finasteride 5 mg tablet (Proscar) 5 mg PO DAILY #90 tabs 02/27/24 07/23/24 Rx amlodipine 5 mg tablet 5 mg PO DAILY 03/25/24 07/24/24 History carvedilol 6.25 mg tablet 6.25 mg PO BID 03/25/24 07/23/24 History doxycycline hyclate 100 mg tablet 100 mg PO BID #10 tabs 07/22/24 07/24/24 Rx prednisone 20 mg tablet 20 mg PO BID #10 tabs 07/22/24 07/23/24 Rx tamsulosin 0.4 mg capsule 0.8 mg PO HS 07/24/24 07/24/24 History spironolactone 50 mg tablet 50 mg PO DAILY #30 tabs 07/26/24 Rx New Prescriptions to Start Prescriptions: doxycycline hyclate Colby Quan prednisone Colby Quan Allergies Allergy/AdvReac Type Severity Reaction Status Date / Time Penicillins Allergy Verified 06/17/24 08:55 Discharge Plan Disposition Patient Disposition: Home, Self-Care Condition: Fair Follow up Plan Follow up with: Colby Quan MD [Primary Care Provider] - 07/29/24 10:15 am Prescriptions/Medication Reconciliation: New prednisone 20 mg Tablet 20 mg PO BID Qty: 10 0RF Rx Instructions: LAST DOSE 07/27/24 doxycycline hyclate 100 mg Tablet 100 mg PO BID Qty: 10 0RF Rx Instructions: LAST DOSE 07/27/24 Continued apixaban [Eliquis] 5 mg tablet 5 mg PO BID omeprazole 20 mg capsule,delayed release(DR/EC) 20 mg PO DAILY Patient Comments: TAKE ONE CAPSULE BY MOUTH EVERY DAY 30 minutes BEFORE morning meal carvedilol 6.25 mg tablet 6.25 mg PO BID Patient Comments: TAKE ONE TABLET BY MOUTH TWICE DAILY WITH FOOD Rx Instructions: Take with food amlodipine 5 mg tablet 5 mg PO DAILY Patient Comments: TAKE ONE TABLET BY MOUTH EVERY DAY lisinopril 5 mg tablet 5 mg PO DAILY Patient Comments: TAKE ONE TABLET BY MOUTH EVERY DAY finasteride [Proscar] 5 mg tablet 5 mg PO DAILY Qty: 90 3RF metformin 500 MG tablet extended release 24 hr 1,000 mg PO DAILY ferrous sulfate [FeroSul] 325 mg (65 mg iron) tablet 325 mg PO DAILY famotidine 40 mg tablet 40 mg PO HS Patient Comments: TAKE ONE TABLET BY MOUTH EVERY DAY AT BEDTIME clopidogrel 75 mg tablet 75 mg PO DAILY nitroglycerin 0.4 mg tablet, sublingual 0.4 mg sublingual Q5MINP PRN (Reason: chest pain) Rx Instructions: do not exceed 3 doses per episode atorvastatin 80 MG tablet 80 mg PO HS gabapentin 300 mg capsule 300 mg PO BID [id number] 1 EACH blister with device 1 puff IH DAILY Discontinued levofloxacin 500 mg tablet 500 mg PO DAILY 5 Days Qty: 5 0RF Rx Instructions: Start this medicine Monday02-17-2024 No Action tamsulosin 0.4 mg capsule 0.8 mg PO HS spironolactone 50 mg tablet 50 mg PO DAILY Qty: 30 0RF Problem Reconciliation Problems Reviewed?: Yes Patient Discharge Instructions ACTIVITY: Continue current activity DIET: continue same diet Patient Instructions: DI for Chronic Obstructive Pulmonary Disease, DI for Shortness of Breath Print Language: Danish Providers Primary Care Provider: Colby Quan Admit Provider: Colby Quan Attending Provider: Colby Quan
== END 2024-07-22 10:05 | disposition home or self-care (01) ==
LOC: ER 21:32 → 2ND 21:47 → ER 22:58
PROVIDERS: Admitting Provider Family Medicine; Emergency Provider Student in an Organized Health Care Education/Training Program; PCP Family Medicine; Visit Provider Family Medicine
DX: J44.1 Chronic obstructive pulmonary disease with (acute) exacerbation (principal); N40.1 Benign prostatic hyperplasia with lower urinary tract symptoms; I11.0 Hypertensive heart disease with heart failure; K21.9 Gastro-esophageal reflux disease without esophagitis; Z95.0 Presence of cardiac pacemaker; I48.20 Chronic atrial fibrillation, unspecified; E11.42 Type 2 diabetes mellitus with diabetic polyneuropathy; I25.119 Atherosclerotic heart disease of native coronary artery with unspecified angina pectoris; I50.32 Chronic diastolic (congestive) heart failure; E78.5 Hyperlipidemia, unspecified; R91.1 Solitary pulmonary nodule; Z79.899 Other long term (current) drug therapy; Z79.84 Long term (current) use of oral hypoglycemic drugs
CPT/HCPCS: 36415; 71045; 71275; 80048; 80053; 82803; 83880; 84484; 85007; 85025; 85027; 85378; 86803; 87389; 87636; 93005; 94640; 94761; 99291; G0378; J1940; J2919; J3475; J7613; J7620; Q9967

== ENCOUNTER 2024-07-23 20:10 | Observation (INO) | payer MEDICARE, OTHER, SELFPAY ==
[2024-07-23] VITALS (7 sets, daily range): BP systolic 161–200; BP diastolic 74–100; PULSE 83–95; RESP 16–39; TEMP 37.1; O2SAT 77–100; BMI 25.8; BMI 24.0
--- NOTE | 2024-07-23 20:19 | XR_ITS ---
PROCEDURE INFORMATION: Exam: XR Chest Exam date and time: 07/23/2024 8:26 PM Age: 83 years old Clinical indication: Shortness of breath; Additional info: Acute resp failure TECHNIQUE: Imaging protocol: Radiologic exam of the chest. Views: 1 view. COMPARISON: CT ANGIO CHEST PE PROTOCOL 07/20/2024 9:05 PM FINDINGS: Tubes, catheters and devices: Stable single lead pacemaker. Lungs: Mild interstitial prominence. 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 Pleural spaces: Tiny bilateral pleural effusions. Heart/Mediastinum: Unremarkable. No cardiomegaly. Bones/joints: Unremarkable. IMPRESSION: Mild pulmonary edema/CHF.
[2024-07-23] MEDS: METHYLPREDNISOLONE SOD SUCC 125MG VIAL 125 MG IV (20:20)
--- NOTE | 2024-07-23 20:20 | ECG_ITS ---
APPROVED REPORT Exam: Resting ECG HR:83 bpm ECG Measurements Heart Rate 83 AXES QRSd 120 QRS -62 QT 393 T 117 QTc 433 Conclusion UNCERTAIN IRREGULAR RHYTHM ELECTRONIC VENTRICULAR PACEMAKER -- CONTOUR ANALYSIS BASED ON INTRINSIC RHYTHM LEFT AXIS DEVIATION [QRS AXIS < -30] POSSIBLE ANTERIOR MYOCARDIAL INFARCTION , PROBABLY OLD [30 ms Q WAVE IN V3/V4, OR R < 0.2 mV IN V4] MODERATE T-WAVE ABNORMALITY No acute STEMI, not significantly changed from prior ECG Electronically signed by : IRISH TOBIN, 07/24/2024 22:35:19
[2024-07-23] MEDS: MAGNESIUM SULFATE IN WATER 2 GM/50 ML PIGGYBACK IV (20:21)
--- NOTE | 2024-07-23 20:25 | ED_ITS ---
Discharge Plan Disposition Patient Disposition: Admitted Clinical Impressions Clinical Impression: COPD (chronic obstructive pulmonary disease), Acute on chronic respiratory failure with hypoxia and hypercapnia, Hypertensive emergency, Acute exacerbation of CHF (congestive heart failure), Pulmonary edema Discharge ED Provider: Teresita Padilla General Adult HPI General Chief complaint: Shortness of Breath/Dyspnea Stated complaint: SOA, high bp Time Seen by Provider: 07/23/24 20:16 History of Present Illness HPI narrative: This patient is an 83-year-old male with a history of chronic respiratory failure on 2 L nasal cannula, COPD, CAD, CHF, hypertension, hyperlipidemia, renal artery stenosis, tachybradycardia syndrome, atrial fibrillation on Eliquis presenting to the emergency department for evaluation for acute shortness of breath that started just an hour or 2 prior to arrival. Family notes he was just discharged yesterday on antibiotics and steroids after being admitted for shortness of breath. On medical record review, it looks like he was admitted for COPD exacerbation, respiratory failure, and also was found to have pulmonary edema and pleural effusions he was treated with diuresis. He was discharged home on prednisone and doxycycline, and family reports compliance with medications but states that he became acutely short of breath just prior to arrival. He arrives not on any oxygen but in acute respiratory distress. Patient does not contribute much to history given acuity of condition. Related Data Home Medications ?Medication ?Instructions ?Recorded ?Confirmed atorvastatin 80 mg tablet 80 mg PO HS 09/10/17 07/23/24 apixaban 5 mg tablet (Eliquis) 5 mg PO BID 01/29/18 07/23/24 gabapentin 300 mg capsule 300 mg PO BID 01/20/20 07/23/24 fluticasone fur. 100 mcg-umeclid 1 puff inhalation DAILY 05/15/20 07/23/24 62.5 mcg-vilant 25 mcg inhalat.powder metformin 500 mg tablet,extended 1,000 mg PO DAILY 11/29/20 07/23/24 release 24 hr famotidine 40 mg tablet 40 mg PO HS 05/07/23 07/23/24 ferrous sulfate 325 mg (65 mg 325 mg PO DAILY 05/07/23 07/23/24 iron) tablet (FeroSul) lisinopril 5 mg tablet 5 mg PO DAILY 08/09/23 07/23/24 omeprazole 20 mg capsule,delayed 20 mg PO DAILY 11/08/23 07/23/24 release clopidogrel 75 mg tablet 75 mg PO DAILY 02/04/24 07/23/24 nitroglycerin 0.4 mg sublingual 0.4 mg sublingual Q5MINP PRN chest 02/05/24 07/23/24 tablet pain amlodipine 5 mg tablet 5 mg PO DAILY 03/25/24 07/23/24 carvedilol 6.25 mg tablet 6.25 mg PO BID 03/25/24 07/23/24 Previous Rx's ?Medication ?Instructions ?Recorded finasteride 5 mg tablet (Proscar) 5 mg PO DAILY #90 tabs 02/27/24 tamsulosin 0.4 mg capsule 0.8 mg (2 x 0.4 mg) PO DAILY 90 02/27/24 days #180 caps doxycycline hyclate 100 mg tablet 100 mg PO BID #10 tabs 07/22/24 prednisone 20 mg tablet 20 mg PO BID #10 tabs 07/22/24 Allergies Allergy/AdvReac Type Severity Reaction Status Date / Time Penicillins Allergy Verified 06/17/24 08:55 [facility] Disclaimer: The information contained in this section may have been updated after the patient was seen, as this information can be updated by other users. Medical History Pulmonary nodule Diastolic dysfunction DM2 (diabetes mellitus, type 2) Chronic a-fib Left lower lobe pneumonia COVID Pneumonia due to COVID-19 virus Positive blood cultures Respiratory failure with hypoxia Closed right fibular fracture SIRS (systemic inflammatory response syndrome) Heart attack History of left heart catheterization (LHC) Abnormal result of cardiovascular function study Tachy-gerry syndrome Dizziness Sinus pause longterm current use 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 therapy HTN (hypertension) HLD (hyperlipidemia) RHONDA (renal artery stenosis) Dyspnea Edema Congestive heart failure COPD (chronic obstructive pulmonary disease) CAD (coronary artery disease) Surgical History History of heart artery stent S/P cardiac pacemaker procedure S/P cataract extraction History of cholecystectomy History of renal stent Family History Sister Breast cancer Son Diabetes Sister Leukemia Other Heart disease Social History (Updated 07/23/24 @ 22:36 by Melissa Yayo, RN) Smoking Status: Former smoker tobacco type: cigarettes packs per day: 1 years smoked: 35 second hand exposure: No alcohol intake: never counseling provided: none substance use type: denies use current occupational status: retired Travel in the last 8 weeks: None household members: children housing: house current occupational exposures/hazards: No caffeine: Yes Have you lived/traveled outside [place] in past 30 days?: No Contact w/someone who lives/traveled outside [place] past 30 days?: No Exposure to someone with infectious disease in past 14 days?: No Do you have a fever (greater than 100.4 F or 38 C)?: No Have you tested positive for COVID-19: No Exposed to someone with COVID-19 in past 14 days?: No Do you have a sore throat?: No Do you have a cough?: No Do you have any weakness?: No Do you have any diarrhea?: No Are you experiencing any unusual bleeding?: No Do you have any muscle aches/pain?: No Do you have any abdominal pain?: No Are you experiencing loss of taste or smell?: No Other Medical History Have you received the Flu Vaccine for this season: No Have you received the Pneumonia Vaccine: No ROS Obtained: Yes other (Unobtainable due to acuity of condition) Physical Exam General General appearance: alert and in distress Head Head exam: atraumatic and normocephalic Eye Eye exam: Present normal appearance, PERRL and EOMI ENT ENT exam: Present normal exam, normal oropharynx, mucous membranes moist and normal external ear exam Neck Neck exam: Present normal inspection, full ROM and trachea midline; Absent tenderness Chest Chest inspection: Present normal inspection and symmetric chest wall rise; Absent tenderness Respiratory Respiratory exam: Present respiratory distress, wheezes, accessory muscle use and prolonged expiratory phase; Absent stridor Cardiovascular Cardiovascular exam: Present regular rate, normal rhythm and other (Frequent PVCs) Abdominal Exam Abdominal exam: Present soft; Absent distention, tenderness or guarding Extremities Exam Extremities exam: Present normal inspection, full ROM and normal capillary refill; Absent tenderness or edema Back Exam Back exam: Present normal inspection and full ROM; Absent tenderness Neurological Exam Neurological exam: Present alert, oriented X3, CN II-XII intact and normal gait; Absent motor sensory deficit Psychiatric Psychiatric exam: Present normal affect and normal mood Skin Skin exam: Present warm and dry Medical Decision Making Medical Records Medical records reviewed: Yes I reviewed the patient's medical records. Screening: Per USPSTF and CDC recommendations, given the prevalence of disease in our region, it is our hospital?s policy to screen for HIV and viral Hepatitis for all patients aged 18 and over and those with ongoing risk factors. [place] Inquiry Pt receiving controlled substance: No Vital Signs: 07/23/24 20:11 07/23/24 21:01 07/23/24 22:03 Temperature 98.8 F Temperature Source Axillary Pulse Rate Pulse Rate [Right] 93 H 87 Respiratory Rate 39 H 30 H 32 H Blood Pressure 168/74 H Blood Pressure [Right Arm] 200/100 H Blood Pressure Mean [Right Arm] 133 Blood Pressure Source Blood Pressure Source [Right Arm] Automatic Cuff 02 Sat by Pulse Oximetry 77 L 100 100 Oxygen Delivery Method Room Air Venturi Mask Oxygen Flow Rate (LPM) 8 07/23/24 22:29 Temperature 98.8 F Temperature Source Axillary Pulse Rate 83 Pulse Rate [Right] Respiratory Rate 28 H Blood Pressure 173/86 H Blood Pressure [Right Arm] Blood Pressure Mean [Right Arm] Blood Pressure Source Automatic Cuff Blood Pressure Source [Right Arm] 02 Sat by Pulse Oximetry Oxygen Delivery Method Nasal Cannula Oxygen Flow Rate (LPM) 2 Lab Data Lab results reviewed: Yes I reviewed the patient's lab results. Lab Results 07/23/24 20:16: VBG pH 7.28 L, VBG pCO2 52.0 H, VBG pO2 32.6, VBG HCO3 23.7, VBG Total CO2 25.3, VBG O2 Saturation 53.8, VBG Base Excess -3.1 L, VBG Lactic Acid 1.5 07/23/24 20:20: WBC 10.9 H, RBC 3.98 L, Hgb 11.4 L, Hct 37.1 L, MCV 93.2, MCH 28.6, MCHC 30.7 L, RDW 14.5, Plt Count 214, MPV 12.3 H, Neut % (Auto) 76.2, Lymph % (Auto) 10.8, [place] % (Auto) 12.1 H, Eos % (Auto) 0.1, Baso % (Auto) 0.3, Neut # (Auto) 8.3 H, Lymph # (Auto) 1.2, [place] # (Auto) 1.3 H, Eos # (Auto) 0.0, Baso # (Auto) 0.0, Sodium 137, Potassium 3.9, Chloride 101, Carbon Dioxide 28, Anion Gap 11.9, BUN 41 H, Creatinine 1.80 H, Estimated GFR 36 L, Est GFR ( Amer) 44 L, Glucose 184 H, Calcium 9.2, Magnesium 2.2, Total Bilirubin 1.3, AST 60 H, ALT 37, Alkaline Phosphatase 90, Troponin I 0.02, C-Reactive Protein 15.1 H, NT-Pro-B Natriuret Pep 5270 H, Total Protein 7.6, Albumin 4.5, Globulin 3.1, Albumin/Globulin Ratio 1.5, Procalcitonin 0.111 07/23/24 20:20 07/23/24 20:20 Orders (Tests/Meds): ED MEDICATIONS Generic Name Dose Route Start Last Admin Trade Name Freq PRN Reason Stop Dose Admin Acetaminophen 650 mg 07/23/24 21:43 Acetaminophen 325mg Tab PO 08/22/24 21:42 Q6HP PRN Fever or Mild Pain (1-3) Albuterol/Ipratropium 3 ml 07/23/24 21:43 Ipratropium/Albuterol 3 Ml Neb IH 08/22/24 21:42 Q2HP PRN Wheezing Nitroglycerin 0.4 mg 07/23/24 20:17 Nitroglycerin 0.4mg Sl Tablet SL 08/22/24 20:16 Q5MINP PRN Chest Pain Discontinued Medications Generic Name Dose Route Start Last Admin Trade Name Freq PRN Reason Stop Dose Admin Albuterol/Ipratropium 9 ml 07/23/24 20:16 07/23/24 21:15 Ipratropium/Albuterol 3 Ml Neb IH 07/23/24 20:17 9 ml ONCE ONE Administration Furosemide 80 mg 07/23/24 20:18 07/23/24 20:40 Furosemide 40mg/4ml Vial IV 07/23/24 20:19 80 mg ONCE ONE Administration Magnesium Sulfate 2 gm in 50 mls @ 50 mls/hr 07/23/24 20:16 07/23/24 20:21 Magnesium Sulfate 2gm/50ml Premix IV 07/23/24 21:15 50 mls/hr ONCE ONE Administration Methylprednisolone Sodium Succinate 125 mg 07/23/24 20:16 07/23/24 20:20 Methylprednisolone Sod Succ 125mg Vial IV 07/23/24 20:17 125 mg ONCE ONE Administration ORDERS Category Date Time Status CXR --portable [XR chest portable] Stat Exams 07/23/24 20:19 Completed BNP [NT Pro Brain Natriuretic Pep.] Stat Lab 07/23/24 20:20 Completed CRP [C-Reactive Protein] Stat Lab 07/23/24 20:20 Completed Complete Blood Count Auto Diff Stat Lab 07/23/24 20:20 Completed Comprehensive Metabolic Panel Stat Lab 07/23/24 20:20 Completed MAG [Magnesium] Stat Lab 07/23/24 20:20 Completed Procalcitonin Stat Lab 07/23/24 20:20 Completed Trop I [Troponin I] Stat Lab 07/23/24 20:20 Completed Troponin I Q3H Lab 07/23/24 23:34 Completed Troponin I Q3H Lab 07/24/24 02:30 Ordered VBG [Venous Blood Gas] Stat RT 07/23/24 20:16 Completed ECG Data Tracing #1: I reviewed this ECG and interpreted as documented below: Electronic ventricular pacemaker. No acute STEMI. No significant changes from prior EKG. ECG initial impression date: 07/23/24 ECG initial impression time: 20:22 Medical Decision Narrative: In summary, this patient is a 83-year-old male presenting to the Emergency Department for evaluation of acute respiratory distress that started an hour or 2 prior to arrival. He was just discharged yesterday after admission for respiratory failure in the setting of COPD and CHF. Differential diagnoses considered include but are not limited to COPD exacerbation, CHF exacerbation, pneumonia, acute on chronic respiratory failure. Ruling out the most morbid conditions drove assessment. It should be noted patient's history includes COPD, CHF, extensive cardiovascular disease which are not at goal therapy. This complicates all aspects of care by increasing patient's risk for morbidity. I reviewed patient's past medical records and noted recent admission and subsequent discharge yesterday as detailed in HPI. On exam, the patient is in acute respiratory distress with an O2 saturation of 77% on room air. He is supposed to be on 2 L nasal cannula at home, but he arrives not on any oxygen. He has wheezes and diminished breath sounds bilaterally. Patient was given DuoNebs x 3, IV methylprednisolone, IV magnesium for initial stabilization. He is also profoundly hypertensive and has concerns for some volume overload on exam, so he was then given IV Lasix as well as sublingual nitroglycerin. Workup included lab evaluation to evaluate for infectious, cardiac, metabolic causes of acute respiratory distress. I considered obtaining D-dimer or CT PE, but patient does have a CT PE protocol 3 days ago which is not concerning for PE. I reviewed this on prior medical records. He also already is on Eliquis.. VBG was obtained which demonstrates a decompensated respiratory acidosis. It is very mild, I considered continuing with plan for DuoNebs and supplemental oxygen via nasal cannula but the patient has signs of volume overload on exam so I do feel he would benefit from BiPAP. Given this, he was placed on BiPAP. I independently interpreted chest x-ray prior to the radiologist read and noted for pulmonary edema. Please see their read for final interpretation. Labs were obtained that demonstrated elevated BNP from discharge. He has very mild leukocytosis but has been on steroids. Anemia stable. He had a respiratory acidosis as stated above. His creatinine is slightly uptrending. Initial troponin 0.01.. On reassessment, patient is tolerating BiPAP very well. He was on it for period of 2 hours down here in the emergency department before we took him off. He received DuoNebs x 3 as well as continuous albuterol neb for continued wheezing. His O2 saturations are much improved and he states he is feeling overall better, but he does still sound wheezy. Ultimately, feel he would benefit from admission for mixed COPD exacerbation and CHF exacerbation causing respiratory failure. I given him nitroglycerin here for severe hypertension, Lasix for diuresis, DuoNebs, methylprednisolone, mag. Patient was admitted in stable condition after interactive discussion with Dr. Quan. Critical Care Critical Care Time Critical Care Time: Yes Attestation: On 07/23/24, the high probability of a clinically significant, sudden or life threatening deterioration of the following system(s) required my full and direct attention, intervention and personal management. The time I documented below is in addition to time spent performing reported procedures but includes the following listed in this critical care notation. Total Time Total Critical Care Time: 50
[2024-07-23 20:26] LABS: Lactate Venous 1.5 mmol/L (0.4-2.0); VBG Base Excess -3.1 mmol/L (-2.4-2.3); VBG HCO3 23.7 mmol/L (23-30); VBG Oxygen Saturation 53.8 % (50-70); VBG PH 7.28 mmol/L (7.31-7.41); VBG PO2 32.6 mmol/L (28-40); VBG Total CO2 25.3 mmol/L (23-27)
[2024-07-23 20:40] LABS: Albumin Level 4.5 g/dl (3.5-5.0); Chloride 101 mmol/L (98-107); Potassium 3.9 mmoL/L (3.5-5.1); Sodium 137 mmol/L (136-145)
[2024-07-23] MEDS: FUROSEMIDE 40MG/4ML VIAL 80 MG IV (20:40)
[2024-07-23 20:42] LABS: Alanine Aminotransferase 37 U/L (12-78); Aspartate Amino Transferase 60 U/L (17-59); Blood Urea Nitrogen 41 mg/dl (9-20); Estimated Glomerular Filt Rate 36 ml/min (>60); GFR (African American) 44 ML/MIN (>60)
[2024-07-23 20:43] LABS: Albumin/Globulin Ratio 1.5 (1.1-1.8); Alkaline Phosphatase 90 U/L (38-126); Anion Gap 11.9 mEq/L (5-15); Bilirubin,Total 1.3 mg/dl (0.2-1.3); Calcium 9.2 mg/dl (8.4-10.2); Carbon Dioxide 28 mmol/L (22.0-30.0); Globulin 3.1 g/dL (1.3-3.2); Glucose 184 mg/dl (74-100); Magnesium 2.2 mg/dl (1.6-2.3); Total Protein,Serum 7.6 g/dl (6.3-8.2)
[2024-07-23 20:48] LABS: C-Reactive Protein 15.1 mg/L (0-4)
[2024-07-23 20:49] LABS: Hematocrit 37.1 % (42.0-52.0); Hemoglobin 11.4 g/dL (14.1-18.0); Mean Corpuscular HGB Conc 30.7 g/dL (31.8-35.4); Mean Corpuscular Hemoglobin 28.6 pg (27.0-31.2); Mean Corpuscular Volume 93.2 fl (80-94); Platelet Count 214 K/mm3 (142-424); Red Blood Count 3.98 M/mm3 (4.60-6.20); Red Cell Distribution Width 14.5 % (11.5-17.5); White Blood Count 10.9 K/mm3 (4.8-10.8)
[2024-07-23 20:50] LABS: Basophils % 0.3 % (0.1-2.0); Eosinophils % 0.1 % (0.1-12.0); Lymphocytes # 1.2 K/mm3 (0.7-4.5); Lymphocytes % 10.8 % (10-50); Mean Platelet Volume 12.3 fl (7.4-10.4); Monocytes # 1.3 K/mm3 (0.1-1.0); Monocytes % 12.1 % (1.7-9.3); Neutrophils # 8.3 K/mm3 (1.8-7.8); Neutrophils % 76.2 % (37.0-80.0)
[2024-07-23 20:52] LABS: NT Pro Brain Natriuretic Pep. 5270 pg/mL (0-450)
[2024-07-23 20:54] LABS: Troponin I 0.02 ng/ml (0.00-0.034)
[2024-07-23 20:59] LABS: Procalcitonin 0.111 ng/mL (0.0-2.0)
[2024-07-23] MEDS: IPRATROPIUM/ALBUTEROL 3 ML NEB 9 ML IH (21:15)
--- NOTE | 2024-07-23 21:34 | PC.NURSE ---
Dr. Quan pagejerome
--- NOTE | 2024-07-23 21:43 | PC.NURSE ---
Dr. Padilla s/w Dr. Quan
--- NOTE | 2024-07-23 22:29 | PC.NURSE ---
Called report to Anju ARMENDARIZ on Med/Surg
--- NOTE | 2024-07-23 22:51 | PC.NURSE ---
Patient arrived to floor via stretcher from ED at 22:43.
[2024-07-24 00:04] LABS: Troponin I 0.01 ng/ml (0.00-0.034)
[2024-07-24 03:12] LABS: Troponin I 0.02 ng/ml (0.00-0.034)
[2024-07-24 04:00] VITALS: BP 121/61; PULSE 82; TEMP 37.1; O2SAT 87; BMI 23.8
--- NOTE | 2024-07-24 04:16 | PC.NURSE ---
Addendum entered by Melissa Zee RN 07/24/24 04:21: BIPAP being placed by respiratory at this time. Original Note: Patient was bumped up to 4 L of oxygen via nasal cannula. Oxygen saturation according to pulse ox/telemetry box read 83%, and oxygen saturation according to datascope read 86% (readings did not surpass 87%). Current auscultation of his lungs still presented expiratory wheezing. Some audible wheezing could still be heard but has slightly eased since initial assessment. Respiratory was paged at this time for interventions.
--- NOTE | 2024-07-24 06:50 | PC.NURSE ---
Patient is currently on 3 L of oxygen via nasal cannula after receiving a breathing treatment this morning. Patient's oxygen saturations have noticed to drop quickly into the low 80s during any kind of exertion and ambulation this shift. Patient tolerates ambulation well with standby assistance (apart from oxygen descending). Wheezing remains present.
[2024-07-24 06:53] VITALS: PULSE 84; O2SAT 96
[2024-07-24] MEDS: IPRATROPIUM/ALBUTEROL 3 ML NEB IH ×2 (06:53→11:37)
--- NOTE | 2024-07-24 07:53 | HMH.PHAINT1 ---
Pharmacy Intervention Comments: Home medication list verified using LIST FROM OUTPATIENT PHARMACY AND RECENT DISCHARGE FROM THIS FACILITY 07/22/24
[2024-07-24 08:00] VITALS: BP 148/79; PULSE 73; RESP 20; TEMP 36.6; O2SAT 97
--- NOTE | 2024-07-24 10:02 | P.HP_ITS ---
History of Present Illness *Admission Date: 07/23/24 *Reason for visit:: Shortness of breath *History of present illness: Mr. Kim is an 83 year old patient of [facility] who was just admitted to [facility] for a COPD exacerbation and was discharged 2 days ago. Yesterday evening he acutely became short of breath and was brought back to the ER for evaluation. He was found to be hypertensive to 200 systolic and hypoxic with sats in the mid 70's on room air. Patient had no other new symptoms. and was reportedly taking the steroids and antibiotics prescribed at discharge. [facility] Disclaimer: The information contained in this section may have been updated after the patient was seen, as this information can be updated by other users. Medical History Pulmonary nodule Diastolic dysfunction DM2 (diabetes mellitus, type 2) Chronic a-fib Left lower lobe pneumonia COVID Pneumonia due to COVID-19 virus Positive blood cultures Respiratory failure with hypoxia Closed right fibular fracture SIRS (systemic inflammatory response syndrome) Heart attack History of left heart catheterization (LHC) Abnormal result of cardiovascular function study Tachy-gerry syndrome Dizziness Sinus pause longterm current use 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 therapy HTN (hypertension) HLD (hyperlipidemia) RHONDA (renal artery stenosis) Dyspnea Edema Congestive heart failure COPD (chronic obstructive pulmonary disease) CAD (coronary artery disease) Surgical History History of heart artery stent S/P cardiac pacemaker procedure S/P cataract extraction History of cholecystectomy History of renal stent Family History Diabetes Son Heart disease Leukemia Sister Breast cancer Sister Social History Smoking Status: Former smoker tobacco type: cigarettes packs per day: 1 years smoked: 35 second hand exposure: No alcohol intake: never counseling provided: none substance use type: denies use current occupational status: retired Travel in the last 8 weeks: None household members: children housing: house current occupational exposures/hazards: No caffeine: Yes Have you lived/traveled outside [place] in past 30 days?: No Contact w/someone who lives/traveled outside US past 30 days?: No Exposure to someone with infectious disease in past 14 days?: No Do you have a fever (greater than 100.4 F or 38 C)?: No Have you tested positive for COVID-19: No Exposed to someone with COVID-19 in past 14 days?: No Do you have a sore throat?: No Do you have a cough?: No Do you have any weakness?: No Do you have any diarrhea?: No Are you experiencing any unusual bleeding?: No Do you have any muscle aches/pain?: No Do you have any abdominal pain?: No Are you experiencing loss of taste or smell?: No Other Medical History Have you received the Flu Vaccine for this season: Yes Have you received the Pneumonia Vaccine: Yes Review of Systems Constitutional Constitutional: Denies chills and Denies fever(s) *Cardiovascular Cardiovascular: Denies chest pain and Reports dyspnea *Respiratory Respiratory: Reports as per HPI and Reports dyspnea *Gastrointestinal Gastrointestinal: Denies abdominal pain *Genitourinary Genitourinary: Denies difficulty urinating *Musculoskeletal Musculoskeletal: Denies arthralgias *Neurologic Neurologic: Denies confusion Psychiatric Psychiatric: Denies confusion Meds Home Medications and Allergies Home Medications ?Medication ?Instructions ?Recorded ?Confirmed ?Type atorvastatin 80 mg tablet 80 mg PO HS 09/10/17 07/23/24 History apixaban 5 mg tablet (Eliquis) 5 mg PO BID 01/29/18 07/23/24 History gabapentin 300 mg capsule 300 mg PO BID 01/20/20 07/23/24 History fluticasone fur. 100 mcg-umeclid 1 puff inhalation DAILY 05/15/20 07/23/24 History 62.5 mcg-vilant 25 mcg inhalat.powder metformin 500 mg tablet,extended 1,000 mg PO DAILY 11/29/20 07/23/24 History release 24 hr famotidine 40 mg tablet 40 mg PO HS 05/07/23 07/23/24 History ferrous sulfate 325 mg (65 mg 325 mg PO DAILY 05/07/23 07/23/24 History iron) tablet (FeroSul) lisinopril 5 mg tablet 5 mg PO DAILY 08/09/23 07/23/24 History omeprazole 20 mg capsule,delayed 20 mg PO DAILY 11/08/23 07/23/24 History release clopidogrel 75 mg tablet 75 mg PO DAILY 02/04/24 07/23/24 History nitroglycerin 0.4 mg sublingual 0.4 mg sublingual Q5MINP PRN chest 02/05/24 07/23/24 History tablet pain finasteride 5 mg tablet (Proscar) 5 mg PO DAILY #90 tabs 02/27/24 07/23/24 Rx amlodipine 5 mg tablet 5 mg PO DAILY 03/25/24 07/24/24 History carvedilol 6.25 mg tablet 6.25 mg PO BID 03/25/24 07/23/24 History doxycycline hyclate 100 mg tablet 100 mg PO BID #10 tabs 07/22/24 07/24/24 Rx prednisone 20 mg tablet 20 mg PO BID #10 tabs 07/22/24 07/23/24 Rx tamsulosin 0.4 mg capsule 0.8 mg PO HS 07/24/24 07/24/24 History New Prescriptions to Start Prescriptions: Allergies Allergy/AdvReac Type Severity Reaction Status Date / Time Penicillins Allergy Verified 06/17/24 08:55 Exam Data for Last 24 hours Vital signs and Labs for Last 24 Hours: Temp Pulse Resp BP Pulse Ox O2 Del Method O2 Flow Rate 97.9 F 73 20 148/79 H 97 Nasal Cannula 3 07/24/24 08:00 07/24/24 08:00 07/24/24 08:00 07/24/24 08:00 07/24/24 08:00 07/24/24 09:00 07/24/24 06:53 FiO2 28 07/23/24 23:32 Laboratory Results - last 24 hr 07/23/24 20:16: VBG pH 7.28 L, VBG pCO2 52.0 H, VBG pO2 32.6, VBG HCO3 23.7, VBG Total CO2 25.3, VBG O2 Saturation 53.8, VBG Base Excess -3.1 L, VBG Lactic Acid 1.5 07/23/24 20:20: WBC 10.9 H, RBC 3.98 L, Hgb 11.4 L, Hct 37.1 L, MCV 93.2, MCH 28.6, MCHC 30.7 L, RDW 14.5, Plt Count 214, MPV 12.3 H, Neut % (Auto) 76.2, L ymph % (Auto) 10.8, [place] % (Auto) 12.1 H, Eos % (Auto) 0.1, Baso % (Auto) 0.3, Neut # (Auto) 8.3 H, Lymph # (Auto) 1.2, [place] # (Auto) 1.3 H, Eos # (Auto) 0.0, Baso # (Auto) 0.0, Sodium 137, Potassium 3.9, Chloride 101, Carbon Dioxide 28, Anion Gap 11.9, BUN 41 H, Creatinine 1.80 H, Estimated GFR 36 L, Est GFR ( Amer) 44 L, Glucose 184 H, Calcium 9.2, Magnesium 2.2, Total Bilirubin 1.3, AST 60 H, ALT 37, Alkaline Phosphatase 90, Troponin I 0.02, C-Reactive Protein 15.1 H, NT-Pro-B Natriuret Pep 5270 H, Total Protein 7.6, Albumin 4.5, G lobulin 3.1, Albumin/Globulin Ratio 1.5, Procalcitonin 0.111 07/23/24 23:34: Troponin I 0.01 07/24/24 02:35: Troponin I 0.02 I & O for Last 24 hours: Intake & Output 07/21/24 07/22/24 07/23/24 07/24/24 23:59 23:59 23:59 23:59 Intake Total 100 / 100 Output Total 500 / 500 Balance -400 / -400 Weight 168 lb 166 lb 11.2 oz Constitutional Constitutional: no acute distress *Routine HEENT Exam Head: Present normocephalic Eye: Present EOMI and PERRL ENT: Present mucous membranes moist Comments: hearing aids in use *Routine Neck Exam Neck: Present supple; Absent lymphadenopathy *Routine Respiratory Exam Respiratory: Present wheezes, distant breath sounds and diminished air movement *Routine Cardiovascular Exam Cardiovascular: Present irregularly irregular *Routine Abdominal Exam Abdominal: Present soft and normoactive bowel sounds; Absent tenderness *Routine Rectal Exam Rectal:: deferred *Routine Genitalia Exam Genitalia:: deferred *Routine Extremities Exam Extremities: Absent cyanosis, clubbing or edema *Routine Skin Exam Skin: Present warm; Absent rash *Routine Neurological Exam Neurological: Present alert and oriented X3 H&P: Result Imaging and Cardiology Chest x-ray: Status: final report Assessment and Plan *Assessment and plan (1) Pulmonary edema: Status: Acute Category: Medical Code(s): J81.1 - Chronic pulmonary edema (2) Acute exacerbation of CHF (congestive heart failure): Status: Acute Category: Medical Code(s): I50.9 - Heart failure, unspecified (3) Hypertensive emergency: Status: Acute Category: Medical Code(s): I16.1 - Hypertensive emergency (4) Acute on chronic respiratory failure with hypoxia and hypercapnia: Status: Acute Category: Medical Code(s): J96.21 - Acute and chronic respiratory failure with hypoxia; J96.22 - Acute and chronic respiratory failure with hypercapnia (5) COPD (chronic obstructive pulmonary disease): Status: Acute Category: Medical Code(s): J44.9 - Chronic obstructive pulmonary disease, unspecified (6) Diastolic dysfunction: Status: Acute Category: Medical Code(s): I51.89 - Other ill-defined heart diseases (7) Chronic a-fib: Status: Acute Category: Medical Code(s): I48.20 - Chronic atrial fibrillation, unspecified (8) Acute respiratory distress: Status: Acute Category: Medical Code(s): R06.03 - Acute respiratory distress (9) GERD (gastroesophageal reflux disease): Status: Chronic Qualifiers: Esophagitis presence: esophagitis presence not specified Qualified Code(s): K21.9 - Gastro-esophageal reflux disease without esophagitis Category: Medical Code(s): K21.9 - Gastro-esophageal reflux disease without esophagitis (10) PAD (peripheral artery disease): Status: Chronic Category: Medical Code(s): I73.9 - Peripheral vascular disease, unspecified (11) Presence of cardiac pacemaker: Status: Chronic Category: Medical Code(s): Z95.0 - Presence of cardiac pacemaker (12) Anemia: Status: Chronic Qualifiers: Anemia type: unspecified type Qualified Code(s): D64.9 - Anemia, unspecified Category: Medical Code(s): D64.9 - Anemia, unspecified (13) DM2 (diabetes mellitus, type 2): Status: Chronic Qualifiers: Diabetes mellitus extermination supervisor insulin use: without nursing home use Diabetes mellitus complication status: with neurologic complications Diabetes mellitus complication detail: with polyneuropathy Qualified Code(s): E11.42 - Type 2 diabetes mellitus with diabetic polyneuropathy Category: Medical Code(s): E11.9 - Type 2 diabetes mellitus without complications (14) CAD (coronary artery disease): Status: Chronic Qualifiers: Associated angina: with unspecified form of angina Coronary Disease- Associated Artery/Lesion type: [place] artery [place] vs. transplanted heart: [place] heart Qualified Code(s): I25.119 - Atherosclerotic heart disease of [place] coronary artery with unspecified angina pectoris Category: Medical Code(s): I25.10 - Atherosclerotic heart disease of [place] coronary artery without angina pectoris (15) COPD (chronic obstructive pulmonary disease): Status: Chronic Qualifiers: COPD type: COPD with acute exacerbation Qualified Code(s): J44.1 - Chronic obstructive pulmonary disease with (acute) exacerbation Category: Medical Code(s): J44.9 - Chronic obstructive pulmonary disease, unspecified Plan Patient admitted for further evaluation and management of his HTN urgency and hypoxia. Plan to continue diuresis, will check an ECHO tomorrow. See orders.
[2024-07-24] MEDS: ACETAMINOPHEN 325MG TAB 650 MG PO (10:11)
[2024-07-24] MEDS: FINASTERIDE 5MG TABLET 5 MG PO (10:54)
[2024-07-24] MEDS: DOXYCYCLINE HYCL 100 MG TABLET PO ×2 (10:54→22:14)
[2024-07-24] MEDS: CARVEDILOL 6.25MG TABLET 6.25 MG PO ×2 (10:54→20:54)
[2024-07-24] MEDS: APIXABAN 5MG TABLET 5 MG PO ×2 (10:54→20:53)
[2024-07-24] MEDS: LISINOPRIL 5MG TABLET 5 MG PO (10:54)
[2024-07-24] MEDS: predniSONE 20MG TAB 20 MG PO ×2 (10:54→20:53)
[2024-07-24] MEDS: FUROSEMIDE 40MG/4ML VIAL 40 MG IV (10:54)
[2024-07-24] MEDS: FLUTICASONE/UMECLIDIN/VILANTER 100/62.5/25MCG INHALER 1 PUFF IH (11:35)
[2024-07-24 15:53] VITALS: BP 161/74; PULSE 82; RESP 22; TEMP 36.8; O2SAT 97
[2024-07-24 16:00] VITALS: O2SAT 97
--- NOTE | 2024-07-24 17:39 | PC.NURSE ---
patient remains on 3 LNC, O2 sats are above 95%. patient has used the urinal once today and has been ambulating to the bathroom via standby assist, tolerating well. family at bedside. no complaints at this time, call light within reach
[2024-07-24 20:00] VITALS: BP 163/89; PULSE 80; RESP 18; TEMP 36.4; O2SAT 98
[2024-07-24] MEDS: FAMOTIDINE 20MG TABLET 20 MG PO (20:53)
[2024-07-24] MEDS: ATORVASTATIN 40MG TABLET 80 MG PO (20:53)
[2024-07-24] MEDS: PANTOPRAZOLE 40MG TABLET 40 MG PO (20:54)
[2024-07-24] MEDS: TAMSULOSIN 0.4MG CAPSULE 0.8 MG PO (20:54)
--- NOTE | 2024-07-25 01:22 | PC.NURSE ---
RESPIRATORY NOTE: pt refused bipap at 2330
[2024-07-25 04:00] VITALS: BP 161/84; PULSE 70; RESP 20; TEMP 36.5; O2SAT 97; BMI 24.2
--- NOTE | 2024-07-25 04:55 | PC.NURSE ---
Pt audibly wheezing, RT contacted for PRN breathing treatment
[2024-07-25] MEDS: FLUTICASONE/UMECLIDIN/VILANTER 100/62.5/25MCG INHALER 1 PUFF IH (05:05)
[2024-07-25] MEDS: IPRATROPIUM/ALBUTEROL 3 ML NEB IH ×2 (05:05→22:34)
[2024-07-25 05:06] VITALS: PULSE 66; PULSE 75; O2SAT 97
--- NOTE | 2024-07-25 06:17 | CA_ITS ---
APPROVED REPORT EXAM: Comprehensive 2D, Doppler, and color-flow Echocardiogram Mercury Purifier: GINGER Marie, RVS Ht: 5 ft 6 in Wt: 170lbs BSA: 1.87 BP: 148/79 mmHg Rhythm: Abn EKG Indications: CAD, CHF, Respiratory failure, COPD, HTN, HLD, Diastolic Dysfunction III, Chronic A-fib Echo Enhancing Agent Comments: TDS Limited acoustic windows with lung impedence 2D Dimensions IVSd 1.16 cm M: 0.6-1.2 LVEF (Visual) 55.30 % PWd 1.10 cm M: 0.6 - 1.2 LA Volume 57.40 mL LVDd 5.82 cm M: 4.2 - 5.9 LA Volume Index [id number] mL/m2 (M/F) 16-34 LVDs 4.12 cm M: 2.5 - 4.0 Left Atrium 3.90 cm M: 3.0 - 4.0 M-Mode Dimensions LA Diam 3.87 cm (1.9-4.0) LVDd 5.27 cm (3.5-5.7) LVDs 3.74 cm (3.5-5.7) EF (Teich) 55.40% EPSs 0.97 cm FS 29.00% EDV (Teich) 133.60 mL TAPSE 1.97 (<1.7) ESV (Teich) 59.60 mL LV Diastology E Decel Time 140 (160-240 msec) E/A Ratio 4.70 MED A' 2.70 cm/s Aortic Valve LAUREN Index 0.97 cm2/m2 AoV Peak Chris. 116.0 (50-130 cm/s) AO Peak GR. 5.40 mmHg AO Mean GR. 2.70 (<5 mmHg) AO VTI 24.6 (18-25 cm) LAUREN (VTI) 1.86 (2.5-4.5 cm2) Mitral Valve MV A Velocity 25.0 (40-130 cm/s) E/A Ratio 4.70 Pulmonary Valve ID End VMAX 168.0 cm/s Tricuspid Valve TR P. Velocity 320.00 cm/s RAP Estimate 10.00 mmHg RVSP 50.90 mmHg Left Ventricle The left ventricle is normal size. The left ventricular systolic function is normal. The left ventricular ejection fraction is within the normal range. There is increased LV wall thickness. There is normal LV segmental wall motion. Diastolic function is indeterminate. LVEF is 60%. Right Ventricle The right ventricle is normal size. The right ventricular systolic function is normal. Atria Left atrium is mildly dilated. Right atrium is mildly dilated. There is no Doppler evidence of interatrial shunt. Aortic Valve The aortic valve is mildly thickened. There is no aortic valvular stenosis. Trace aortic regurgitation. Mitral Valve The mitral valve is normal in structure. No evidence of mitral valve stenosis. Trace mitral regurgitation. Tricuspid Valve Tricuspid valve is grossly normal in structure and function. Mild tricuspid regurgitation. RVSP is 40-45 mmHg. Pulmonic Valve The pulmonary valve is normal in structure. Trace pulmonic regurgitation. Great Vessels The aortic root is normal in size. IVC is normal in size and collapses >50% with inspiration. Pericardium There is no pericardial effusion. Other Information Study Quality: Fair Conclusion Normal biventricular systolic function. Biatrial dilation. Mild TR. Elevated RVSP 40-45 mmHg. Electronically signed by : Emily Perdue MD 07/26/2024 11:16:11
[2024-07-25 08:00] VITALS: BP 164/67; PULSE 85; RESP 22; TEMP 36.6; O2SAT 96
--- NOTE | 2024-07-25 08:38 | EXP.ACUTE.PN ---
Subjective *Date: 07/25/24 *Time: 08:38 Interval history: Patient with no new complaints today, could not tolerate the BiPAP last night. Did not have a lot of urine output with Lasix dose yesterday. Medical Exam Vital signs and Labs for Last 24 Hours: Vital Signs Temp Pulse Pulse Resp BP Pulse Ox O2 Del Method 07/25/24 07:40 Nasal Cannula 07/25/24 07:40 Nasal Cannula 07/25/24 05:06 66 07/25/24 05:06 75 07/25/24 05:06 97 Nasal Cannula 07/25/24 04:48 Nasal Cannula 07/25/24 04:00 97.7 F 70 20 161/84 H 97 Nasal Cannula 07/25/24 03:00 Nasal Cannula 07/25/24 01:00 Nasal Cannula 07/25/24 00:00 Room Air 07/24/24 23:00 Room Air 07/24/24 21:00 Room Air 07/24/24 20:00 Room Air 07/24/24 20:00 97.6 F 80 18 163/89 H 98 Room Air 07/24/24 18:39 Nasal Cannula 07/24/24 17:00 Nasal Cannula 07/24/24 16:00 97 07/24/24 15:53 98.2 F 82 22 161/74 H 97 Nasal Cannula 07/24/24 15:00 Nasal Cannula 07/24/24 13:00 Nasal Cannula 07/24/24 11:00 Nasal Cannula 07/24/24 09:00 Nasal Cannula O2 Flow Rate 07/25/24 07:40 2 07/25/24 07:40 2 07/25/24 05:06 07/25/24 05:06 07/25/24 05:06 3 07/25/24 04:48 3 07/25/24 04:00 3 07/25/24 03:00 3 07/25/24 01:00 3 07/25/24 00:00 07/24/24 23:00 07/24/24 21:00 07/24/24 20:00 07/24/24 20:00 3 07/24/24 18:39 07/24/24 17:00 07/24/24 16:00 3 07/24/24 15:53 07/24/24 15:00 07/24/24 13:00 07/24/24 11:00 07/24/24 09:00 Intake and Output 07/24/24 07/25/24 07/25/24 23:59 07:59 15:59 Intake Total 400 / 1380 240 / 240 Output Total 0 / 800 Balance 400 / 580 240 / 240 Intake: Intake, Oral Amount 400 / 1380 240 / 240 Output: Output, Urine Amount 0 / 800 Other: Number of Unmeasured Voids 1 Weight 169 lb 3.2 oz Patient Weight 07/25/24 23:59 Weight 169 lb 3.2 oz I & O for Labs for Last 24 Hours: Intake & Output 07/22/24 07/23/24 07/24/24 07/25/24 23:59 23:59 23:59 23:59 Intake Total 1140 / 1380 240 / 240 Output Total 800 / 800 Balance 340 / 580 240 / 240 Weight 168 lb 166 lb 11.2 oz 169 lb 3.2 oz Constitutional: Present no acute distress Respiratory: Present wheezes and distant breath sounds Cardiac: Present Reg Rate and Rhythm GI: Present normal bowel sounds; Absent tenderness Extremities: Present normal inspection and full ROM Skin: Present intact; Absent erythema Neuro: Present Grossly Intact and moves all extremities Assessment and Plan *Assessment and plan (1) Pulmonary edema: Status: Acute Category: Medical Code(s): J81.1 - Chronic pulmonary edema (2) Acute exacerbation of CHF (congestive heart failure): Status: Acute Category: Medical Code(s): I50.9 - Heart failure, unspecified (3) Hypertensive emergency: Status: Acute Category: Medical Code(s): I16.1 - Hypertensive emergency (4) Acute on chronic respiratory failure with hypoxia and hypercapnia: Status: Acute Category: Medical Code(s): J96.21 - Acute and chronic respiratory failure with hypoxia; J96.22 - Acute and chronic respiratory failure with hypercapnia (5) COPD (chronic obstructive pulmonary disease): Status: Acute Category: Medical Code(s): J44.9 - Chronic obstructive pulmonary disease, unspecified (6) Diastolic dysfunction: Status: Acute Category: Medical Code(s): I51.89 - Other ill-defined heart diseases (7) Chronic a-fib: Status: Acute Category: Medical Code(s): I48.20 - Chronic atrial fibrillation, unspecified (8) Acute respiratory distress: Status: Acute Category: Medical Code(s): R06.03 - Acute respiratory distress (9) GERD (gastroesophageal reflux disease): Status: Chronic Qualifiers: Esophagitis presence: esophagitis presence not specified Qualified Code(s): K21.9 - Gastro-esophageal reflux disease without esophagitis Category: Medical Code(s): K21.9 - Gastro-esophageal reflux disease without esophagitis (10) PAD (peripheral artery disease): Status: Chronic Category: Medical Code(s): I73.9 - Peripheral vascular disease, unspecified (11) Presence of cardiac pacemaker: Status: Chronic Category: Medical Code(s): Z95.0 - Presence of cardiac pacemaker (12) Anemia: Status: Chronic Qualifiers: Anemia type: unspecified type Qualified Code(s): D64.9 - Anemia, unspecified Category: Medical Code(s): D64.9 - Anemia, unspecified (13) DM2 (diabetes mellitus, type 2): Status: Chronic Qualifiers: Diabetes mellitus rat 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 transplanted heart: [place] heart Qualified Code(s): I25.119 - Atherosclerotic heart disease of [place] coronary artery with unspecified angina pectoris Category: Medical Code(s): I25.10 - Atherosclerotic heart disease of [place] coronary artery without angina pectoris (15) COPD (chronic obstructive pulmonary disease): Status: Chronic Qualifiers: COPD type: COPD with acute exacerbation Qualified Code(s): J44.1 - Chronic obstructive pulmonary disease with (acute) exacerbation Category: Medical Code(s): J44.9 - Chronic obstructive pulmonary disease, unspecified Plan Echo and lab reports pending this morning, will give 80 mg of Lasix today and await results.
[2024-07-25] MEDS: APIXABAN 5MG TABLET 5 MG PO ×2 (08:48→21:09)
[2024-07-25] MEDS: predniSONE 20MG TAB 20 MG PO ×2 (08:49→21:10)
[2024-07-25] MEDS: FINASTERIDE 5MG TABLET 5 MG PO (08:49)
[2024-07-25] MEDS: METFORMIN 500MG TABLET 1000 MG PO (08:49)
[2024-07-25] MEDS: DOXYCYCLINE HYCL 100 MG TABLET PO ×2 (08:49→21:09)
[2024-07-25] MEDS: FUROSEMIDE 100MG/10ML VIAL 80 MG IV (08:50)
[2024-07-25] MEDS: CARVEDILOL 6.25MG TABLET 6.25 MG PO ×2 (08:50→21:09)
[2024-07-25] MEDS: LISINOPRIL 5MG TABLET 5 MG PO (08:50)
[2024-07-25] MEDS: AMLODIPINE 5MG TABLET 5 MG PO (08:51)
[2024-07-25 09:18] LABS: Basophils % 0.1 % (0.1-2.0); Hematocrit 37.7 % (42.0-52.0); Hemoglobin 11.7 g/dL (14.1-18.0); Lymphocytes % 8.8 % (10-50); Mean Corpuscular Hemoglobin 28.7 pg (27.0-31.2); Mean Corpuscular Volume 92.6 fl (80-94); Mean Platelet Volume 12.3 fl (7.4-10.4); Monocytes % 5.5 % (1.7-9.3); Neutrophils % 84.9 % (37.0-80.0); Platelet Count 220 K/mm3 (142-424); Red Blood Count 4.07 M/mm3 (4.60-6.20); Red Cell Distribution Width 14.3 % (11.5-17.5); White Blood Count 11.2 K/mm3 (4.8-10.8)
[2024-07-25 09:19] LABS: Monocytes # 0.6 K/mm3 (0.1-1.0); Neutrophils # 9.5 K/mm3 (1.8-7.8)
[2024-07-25 11:46] LABS: Chloride 106 mmol/L (98-107); Potassium 4.3 mmoL/L (3.5-5.1); Sodium 139 mmol/L (136-145)
[2024-07-25 11:49] LABS: Blood Urea Nitrogen 47 mg/dl (9-20); Creatinine Clearance Estimated 35 mL/min (50-200); Estimated Glomerular Filt Rate 39 ml/min (>60); GFR (African American) 47 ML/MIN (>60)
[2024-07-25 11:50] LABS: Anion Gap 11.3 mEq/L (5-15); Calcium 9.3 mg/dl (8.4-10.2); Carbon Dioxide 26 mmol/L (22.0-30.0); Glucose 221 mg/dl (74-100)
--- NOTE | 2024-07-25 14:37 | PC.NURSE ---
PT IS SITTING UP IN THE CHAIR VISITING WITH FAMILY. ALERT AND ORIENTED X4. EATING AND DRINKING WELL. AMBULATES IN THE ROOM AND TO THE BATHROOM. DIURESING WELL. LUNG SOUNDS DIMINISHED WITH RIGHT SIDED CRACKLES (BASES). ABDOMEN SOFT/NON TENDER WITH ACTIVE BOWEL SOUNDS. VSS. WILL CONTINUE TO MONITOR.
[2024-07-25 16:00] VITALS: BP 92/68; PULSE 79; RESP 18; TEMP 36.8; O2SAT 97
[2024-07-25 20:00] VITALS: BP 158/93; PULSE 75; RESP 18; TEMP 36.9; O2SAT 99
[2024-07-25] MEDS: ATORVASTATIN 40MG TABLET 80 MG PO (21:09)
[2024-07-25] MEDS: PANTOPRAZOLE 40MG TABLET 40 MG PO (21:10)
[2024-07-25] MEDS: FAMOTIDINE 20MG TABLET 20 MG PO (21:10)
[2024-07-25] MEDS: TAMSULOSIN 0.4MG CAPSULE 0.8 MG PO (21:10)
--- NOTE | 2024-07-25 22:32 | PC.NURSE ---
RESP CARE NOTE: Pt refused to wear bipap tonight at this time.
[2024-07-25 22:33] VITALS: PULSE 68; PULSE 71; O2SAT 98
[2024-07-26] VITALS: BP 143/70; PULSE 79; RESP 16; TEMP 36.8; O2SAT 99
[2024-07-26 04:00] VITALS: BP 161/70; PULSE 80; RESP 20; TEMP 36.5; O2SAT 98; BMI 24.0
--- NOTE | 2024-07-26 04:16 | PC.NURSE ---
83yo male pt admitted with COPD exacerbation and heart failure. Pt is A/O X 3. He is able to ambulate to and from BR with standby assist. Family often assists and remain at bedside through the night. Pt has denied increased SOA, pain or nausea. 02 sats in high 90s with 02 at 2 liters.Lungs with expiratory wheezing throughout. Pt refused use of bipap this shift.
[2024-07-26] MEDS: FLUTICASONE/UMECLIDIN/VILANTER 100/62.5/25MCG INHALER 1 PUFF IH (06:07)
[2024-07-26] MEDS: IPRATROPIUM/ALBUTEROL 3 ML NEB IH (06:10)
[2024-07-26 06:11] VITALS: PULSE 75; PULSE 76; O2SAT 98
[2024-07-26 08:00] VITALS: BP 142/69; PULSE 68; RESP 18; TEMP 36.7; O2SAT 98
[2024-07-26] MEDS: METFORMIN 500MG TABLET 1000 MG PO (08:41)
[2024-07-26] MEDS: predniSONE 20MG TAB 20 MG PO (08:41)
[2024-07-26] MEDS: CARVEDILOL 6.25MG TABLET 6.25 MG PO (08:41)
[2024-07-26] MEDS: DOXYCYCLINE HYCL 100 MG TABLET PO (08:41)
[2024-07-26] MEDS: APIXABAN 5MG TABLET 5 MG PO (08:41)
[2024-07-26] MEDS: AMLODIPINE 5MG TABLET 5 MG PO (08:41)
[2024-07-26] MEDS: LISINOPRIL 5MG TABLET 5 MG PO (08:41)
[2024-07-26] MEDS: FINASTERIDE 5MG TABLET 5 MG PO (08:41)
--- NOTE | 2024-07-26 08:45 | P.PN_ITS ---
Subjective *Date: 07/26/24 *Time: 08:45 Interval history: Patient feels better this morning, breathing has improved, anxious to go home. Medical Exam Vital signs and Labs for Last 24 Hours: Vital Signs Temp Pulse Pulse Resp BP Pulse Ox O2 Del Method 07/26/24 06:50 Nasal Cannula 07/26/24 06:11 76 07/26/24 06:11 75 07/26/24 06:11 98 Nasal Cannula 07/26/24 05:00 Nasal Cannula 07/26/24 04:00 97.7 F 80 20 161/70 H 98 Nasal Cannula 07/26/24 03:00 Nasal Cannula 07/26/24 01:00 Nasal Cannula 07/26/24 00:00 98.3 F 79 16 143/70 H 99 Nasal Cannula 07/25/24 23:00 Nasal Cannula 07/25/24 22:33 68 07/25/24 22:33 71 07/25/24 22:33 98 Nasal Cannula 07/25/24 21:00 Nasal Cannula 07/25/24 20:00 99 Nasal Cannula 07/25/24 20:00 98.4 F 75 18 158/93 H 99 Nasal Cannula 07/25/24 18:19 Room Air 07/25/24 17:00 Room Air 07/25/24 16:00 98.2 F 79 18 92/68 L 97 Nasal Cannula 07/25/24 16:00 Room Air 07/25/24 14:30 Room Air 07/25/24 13:00 Nasal Cannula 07/25/24 10:29 Room Air O2 Flow Rate 07/26/24 06:50 2 07/26/24 06:11 07/26/24 06:11 07/26/24 06:11 3 07/26/24 05:00 2 07/26/24 04:00 2 07/26/24 03:00 2 07/26/24 01:00 2 07/26/24 00:00 3 07/25/24 23:00 2 07/25/24 22:33 07/25/24 22:33 07/25/24 22:33 3 07/25/24 21:00 3 07/25/24 20:00 3 07/25/24 20:00 3 07/25/24 18:19 07/25/24 17:00 07/25/24 16:00 2 07/25/24 16:00 07/25/24 14:30 07/25/24 13:00 07/25/24 10:29 Intake and Output 07/25/24 07/26/24 07/26/24 23:59 07:59 15:59 Intake Total 100 / 1180 Output Total 600 / 1550 0 / 0 Balance -500 / -370 0 / 0 Intake: Intake, Oral Amount 100 / 1180 Output: Output, Urine Amount 600 / 1550 0 / 0 Other: Number of Unmeasured Voids 1 1 Weight 167 lb 12.8 oz Patient Weight 07/26/24 23:59 Weight 167 lb 12.8 oz Laboratory Results - last 24 hr 07/25/24 08:35: WBC 11.2 H, RBC 4.07 L, Hgb 11.7 L, Hct 37.7 L, MCV 92.6, MCH 28.7, MCHC 31.0 L, RDW 14.3, Plt Count 220, MPV 12.3 H, Neut % (Auto) 84.9 H, Lymph % (Auto) 8.8 L, [place] % (Auto) 5.5, Eos % (Auto) 0.0 L, Baso % (Auto) 0.1, Neut # (Auto) 9.5 H, Lymph # (Auto) 1.0, [place] # (Auto) 0.6, Eos # (Auto) 0.0, Baso # (Auto) 0.0, Sodium 139, Potassium 4.3, Chloride 106, Carbon Dioxide 26, Anion Gap 11.3, BUN 47 H, Creatinine 1.70 H, Estimated Creat Clear 35, Estimated GFR 39 L, Est GFR ( Amer) 47 L, Glucose 221 H, Calcium 9.3 I & O for Labs for Last 24 Hours: Intake & Output 07/23/24 07/24/24 07/25/24 07/26/24 23:59 23:59 23:59 23:59 Intake Total 1140 / 1380 1180 / 1180 Output Total 800 / 800 1550 / 1550 0 / 0 Balance 340 / 580 -370 / -370 0 / 0 Weight 168 lb 166 lb 11.2 oz 169 lb 3.2 oz 167 lb 12.8 oz Constitutional: Present no acute distress Respiratory: Present distant breath sounds; Absent wheezes Cardiac: Present Reg Rate and Rhythm GI: Present normal bowel sounds; Absent tenderness Extremities: Present normal inspection and full ROM Skin: Present intact; Absent erythema Neuro: Present Grossly Intact and moves all extremities Assessment and Plan *Assessment and plan (1) Pulmonary edema: Status: Acute Category: Medical Code(s): J81.1 - Chronic pulmonary edema (2) Acute exacerbation of CHF (congestive heart failure): Status: Acute Category: Medical Code(s): I50.9 - Heart failure, unspecified (3) Hypertensive emergency: Status: Acute Category: Medical Code(s): I16.1 - Hypertensive emergency (4) Acute on chronic respiratory failure with hypoxia and hypercapnia: Status: Acute Category: Medical Code(s): J96.21 - Acute and chronic respiratory failure with hypoxia; J96.22 - Acute and chronic respiratory failure with hypercapnia (5) COPD (chronic obstructive pulmonary disease): Status: Acute Category: Medical Code(s): J44.9 - Chronic obstructive pulmonary disease, unspecified (6) Diastolic dysfunction: Status: Acute Category: Medical Code(s): I51.89 - Other ill-defined heart diseases (7) Chronic a-fib: Status: Acute Category: Medical Code(s): I48.20 - Chronic atrial fibrillation, unspecified (8) Acute respiratory distress: Status: Acute Category: Medical Code(s): R06.03 - Acute respiratory distress (9) GERD (gastroesophageal reflux disease): Status: Chronic Qualifiers: Esophagitis presence: esophagitis presence not specified Qualified Code(s): K21.9 - Gastro-esophageal reflux disease without esophagitis Category: Medical Code(s): K21.9 - Gastro-esophageal reflux disease without esophagitis (10) PAD (peripheral artery disease): Status: Chronic Category: Medical Code(s): I73.9 - Peripheral vascular disease, unspecified (11) Presence of cardiac pacemaker: Status: Chronic Category: Medical Code(s): Z95.0 - Presence of cardiac pacemaker (12) Anemia: Status: Chronic Qualifiers: Anemia type: unspecified type Qualified Code(s): D64.9 - Anemia, unspecified Category: Medical Code(s): D64.9 - Anemia, unspecified (13) DM2 (diabetes mellitus, type 2): Status: Chronic Qualifiers: Diabetes mellitus long term care social worker insulin use: without care home use Diabetes mellitus complication status: with neurologic complications Diabetes mellitus complication detail: with polyneuropathy Qualified Code(s): E11.42 - Type 2 diabetes mellitus with diabetic polyneuropathy Category: Medical Code(s): E11.9 - Type 2 diabetes mellitus without complications (14) CAD (coronary artery disease): Status: Chronic Qualifiers: Associated angina: with unspecified form of angina Coronary Disease- Associated Artery/Lesion type: [place] artery [place] vs. transplanted heart: [place] heart Qualified Code(s): I25.119 - Atherosclerotic heart disease of [place] coronary artery with unspecified angina pectoris Category: Medical Code(s): I25.10 - Atherosclerotic heart disease of [place] coronary artery without angina pectoris (15) COPD (chronic obstructive pulmonary disease): Status: Chronic Qualifiers: COPD type: COPD with acute exacerbation Qualified Code(s): J44.1 - Chronic obstructive pulmonary disease with (acute) exacerbation Category: Medical Code(s): J44.9 - Chronic obstructive pulmonary disease, unspecified Plan Patient is improving, will give one more dose of IV Lasix this morning and then discharge home this afternoon with daily aldactone, office f/u in 3 days.
[2024-07-26] MEDS: FUROSEMIDE 100MG/10ML VIAL 80 MG IV (09:24)
[2024-07-26] MEDS: SPIRONOLACTONE 25MG TABLET 50 MG PO (09:24)
--- NOTE | 2024-07-29 12:44 | EXP.DC.SUM ---
General Admission date:: 07/23/24 Discharge date: 07/26/24 HPI HPI HPI: Mr. Kim is an 83 year old patient of [facility] who was just admitted to [facility] for a COPD exacerbation and was discharged 2 days ago. Yesterday evening he acutely became short of breath and was brought back to the ER for evaluation. He was found to be hypertensive to 200 systolic and hypoxic with sats in the mid 70's on room air. Patient had no other new symptoms. and was reportedly taking the steroids and antibiotics prescribed at discharge. Hospital Course Hospital Course Hospital Course: The patient was admitted for hypertensive urgency and hypoxia. He was diuresed and an echo was ordered. BiPAP was started but he could not tolerate the BiPAP. He did not have a lot of urine output with Lasix. He was given 80 mg of Lasix. By 07/26/2024, he felt better and his breathing had improved. He was given 1 more dose of Lasix and was discharged home on daily Aldactone. His echo showed normal biventricular systolic function, biatrial dilatation, mild tricuspid regurgitation, and an elevated RVSP of 40 to 55 mmHg. Exam Data for Last 24 hours Vital signs and Labs for Last 24 Hours: Temp Pulse Resp BP Pulse Ox O2 Del Method O2 Flow Rate 98.1 F 68 18 142/69 H 98 Nasal Cannula 2 07/26/24 08:00 07/26/24 08:00 07/26/24 08:00 07/26/24 08:00 07/26/24 08:00 07/26/24 10:37 07/26/24 10:37 FiO2 28 07/23/24 23:32 I & O for Last 24 hours: Intake & Output 07/27/24 07/28/24 07/29/24 07/30/24 11:59 11:59 11:59 11:59 Output Total 700 / 700 Balance -700 / -700 DS: Diagnosis Discharge Diagnosis (1) Pulmonary edema: Status: Acute Code(s): J81.1 - Chronic pulmonary edema (2) Acute exacerbation of CHF (congestive heart failure): Status: Acute Code(s): I50.9 - Heart failure, unspecified (3) Hypertensive emergency: Status: Acute Code(s): I16.1 - Hypertensive emergency (4) Acute on chronic respiratory failure with hypoxia and hypercapnia: Status: Acute Code(s): J96.21 - Acute and chronic respiratory failure with hypoxia; J96.22 - Acute and chronic respiratory failure with hypercapnia (5) COPD (chronic obstructive pulmonary disease): Status: Acute Code(s): J44.9 - Chronic obstructive pulmonary disease, unspecified (6) Diastolic dysfunction: Status: Acute Code(s): I51.89 - Other ill-defined heart diseases (7) Chronic a-fib: Status: Acute Code(s): I48.20 - Chronic atrial fibrillation, unspecified (8) Acute respiratory distress: Status: Acute Code(s): R06.03 - Acute respiratory distress (9) GERD (gastroesophageal reflux disease): Status: Chronic Code(s): K21.9 - Gastro-esophageal reflux disease without esophagitis Qualifiers: Esophagitis presence: esophagitis presence not specified Qualified Code(s): K21.9 - Gastro-esophageal reflux disease without esophagitis (10) PAD (peripheral artery disease): Status: Chronic Code(s): I73.9 - Peripheral vascular disease, unspecified (11) Presence of cardiac pacemaker: Status: Chronic Code(s): Z95.0 - Presence of cardiac pacemaker (12) Anemia: Status: Chronic Code(s): D64.9 - Anemia, unspecified Qualifiers: Anemia type: unspecified type Qualified Code(s): D64.9 - Anemia, unspecified (13) DM2 (diabetes mellitus, type 2): Status: Chronic Code(s): E11.9 - Type 2 diabetes mellitus without complications Qualifiers: Diabetes mellitus termination clerk insulin use: without correction use Diabetes mellitus complication status: with neurologic complications Diabetes mellitus complication detail: with polyneuropathy Qualified Code(s): E11.42 - Type 2 diabetes mellitus with diabetic polyneuropathy (14) CAD (coronary artery disease): Status: Chronic Code(s): I25.10 - Atherosclerotic heart disease of [place] coronary artery without angina pectoris Qualifiers: Associated angina: with unspecified form of angina Coronary Disease-Associated Artery/Lesion type: [place] artery [place] vs. transplanted heart: [place] heart Qualified Code(s): I25.119 - Atherosclerotic heart disease of [place] coronary artery with unspecified angina pectoris Meds Home Medications and Allergies Home Medications ?Medication ?Instructions ?Recorded ?Confirmed ?Type atorvastatin 80 mg tablet 80 mg PO HS 09/10/17 07/23/24 History apixaban 5 mg tablet (Eliquis) 5 mg PO BID 01/29/18 07/23/24 History gabapentin 300 mg capsule 300 mg PO BID 01/20/20 07/23/24 History fluticasone fur. 100 mcg-umeclid 1 puff inhalation DAILY 05/15/20 07/23/24 History 62.5 mcg-vilant 25 mcg inhalat.powder metformin 500 mg tablet,extended 1,000 mg PO DAILY 11/29/20 07/23/24 History release 24 hr famotidine 40 mg tablet 40 mg PO HS 05/07/23 07/23/24 History ferrous sulfate 325 mg (65 mg 325 mg PO DAILY 05/07/23 07/23/24 History iron) tablet (FeroSul) lisinopril 5 mg tablet 5 mg PO DAILY 08/09/23 07/23/24 History omeprazole 20 mg capsule,delayed 20 mg PO DAILY 11/08/23 07/23/24 History release clopidogrel 75 mg tablet 75 mg PO DAILY 02/04/24 07/23/24 History nitroglycerin 0.4 mg sublingual 0.4 mg sublingual Q5MINP PRN chest 02/05/24 07/23/24 History tablet pain finasteride 5 mg tablet (Proscar) 5 mg PO DAILY #90 tabs 02/27/24 07/23/24 Rx amlodipine 5 mg tablet 5 mg PO DAILY 03/25/24 07/24/24 History carvedilol 6.25 mg tablet 6.25 mg PO BID 03/25/24 07/23/24 History doxycycline hyclate 100 mg tablet 100 mg PO BID #10 tabs 07/22/24 07/24/24 Rx prednisone 20 mg tablet 20 mg PO BID #10 tabs 07/22/24 07/23/24 Rx tamsulosin 0.4 mg capsule 0.8 mg PO HS 07/24/24 07/24/24 History spironolactone 50 mg tablet 50 mg PO DAILY #30 tabs 07/26/24 Rx New Prescriptions to Start Prescriptions: spironolactone Colby Quan Allergies Allergy/AdvReac Type Severity Reaction Status Date / Time Penicillins Allergy Verified 06/17/24 08:55 Discharge Plan Disposition Patient Disposition: Home, Self-Care Condition: Fair Follow up Plan Follow up with: Colby Quan MD [Primary Care Provider] - 07/29/24 10:15 am Prescriptions/Medication Reconciliation: New spironolactone 50 mg tablet 50 mg PO DAILY Qty: 30 0RF Continued apixaban [Eliquis] 5 mg tablet 5 mg PO BID omeprazole 20 mg capsule,delayed release(DR/EC) 20 mg PO DAILY Patient Comments: TAKE ONE CAPSULE BY MOUTH EVERY DAY 30 minutes BEFORE morning meal carvedilol 6.25 mg tablet 6.25 mg PO BID Patient Comments: TAKE ONE TABLET BY MOUTH TWICE DAILY WITH FOOD Rx Instructions: Take with food amlodipine 5 mg tablet 5 mg PO DAILY Patient Comments: TAKE ONE TABLET BY MOUTH EVERY DAY lisinopril 5 mg tablet 5 mg PO DAILY Patient Comments: TAKE ONE TABLET BY MOUTH EVERY DAY finasteride [Proscar] 5 mg tablet 5 mg PO DAILY Qty: 90 3RF metformin 500 MG tablet extended release 24 hr 1,000 mg PO DAILY ferrous sulfate [FeroSul] 325 mg (65 mg iron) tablet 325 mg PO DAILY famotidine 40 mg tablet 40 mg PO HS Patient Comments: TAKE ONE TABLET BY MOUTH EVERY DAY AT BEDTIME clopidogrel 75 mg tablet 75 mg PO DAILY nitroglycerin 0.4 mg tablet, sublingual 0.4 mg sublingual Q5MINP PRN (Reason: chest pain) Rx Instructions: do not exceed 3 doses per episode prednisone 20 mg Tablet 20 mg PO BID Qty: 10 0RF Rx Instructions: LAST DOSE 07/27/24 doxycycline hyclate 100 mg Tablet 100 mg PO BID Qty: 10 0RF Rx Instructions: LAST DOSE 07/27/24 atorvastatin 80 MG tablet 80 mg PO HS gabapentin 300 mg capsule 300 mg PO BID [id number] 1 EACH blister with device 1 puff IH DAILY tamsulosin 0.4 mg capsule 0.8 mg PO HS Problem Reconciliation Problems Reviewed?: Yes Patient Discharge Instructions ACTIVITY: Continue current activity DIET: low salt diet Patient Instructions: DI for Heart Failure, DI for High Blood Pressure, DI for Respiratory Failure, DI for Heart Failure Exacerbations Print Language: Mohawk Providers Primary Care Provider: Colby Quan Admit Provider: Colby Quan Attending Provider: Colby Quan
--- NOTE | 2024-07-30 11:48 | SW/DCPLANNER ---
Spoke with patients daughter on the phone. patient's daughter stated that they went back to the Dr yesterday and that her dad is doing good. Patient's daughter stated that they were able to get patients medicine from the pharmacy before they got dishcharged. Patients daughter stated that they have no concerns or questions at this time. Roger LUZ Director Of Ancillary Services
== END 2024-07-26 12:47 | disposition home or self-care (01) ==
LOC: ER 21:47 → 2ND 22:13
PROVIDERS: Admitting Provider Family Medicine; Emergency Provider Emergency Medicine; PCP Family Medicine; Visit Provider Family Medicine
DX: J96.21 Acute and chronic respiratory failure with hypoxia (principal); J81.1 Chronic pulmonary edema; I49.5 Sick sinus syndrome; I48.20 Chronic atrial fibrillation, unspecified; I11.0 Hypertensive heart disease with heart failure; J96.22 Acute and chronic respiratory failure with hypercapnia; E11.42 Type 2 diabetes mellitus with diabetic polyneuropathy; I25.118 Atherosclerotic heart disease of native coronary artery with other forms of angina pectoris; I50.9 Heart failure, unspecified; Z79.899 Other long term (current) drug therapy; Z79.84 Long term (current) use of oral hypoglycemic drugs; Z79.01 Long term (current) use 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s; Z99.81 Dependence on supplemental oxygen; Z95.0 Presence of cardiac pacemaker; Z86.16 Personal history of COVID-19
CPT/HCPCS: 71045; 80048; 80053; 82803; 83735; 83880; 84145; 84484; 85025; 86140; 93005; 93306; 94640; 94660; 94760; 94761; 99291; G0378; J1940; J2919; J3475; J7620

== ENCOUNTER 2024-09-23 14:51 | Observation (INO) | payer MEDICARE, OTHER, SELFPAY ==
[2024-09-23] VITALS (11 sets, daily range): BP systolic 157–191; BP diastolic 58–91; PULSE 70–89; RESP 14–18; TEMP 36.4–36.8; O2SAT 95–100; BMI 27.4; BMI 27.3
--- NOTE | 2024-09-23 14:56 | ECG_ITS ---
APPROVED REPORT Exam: Resting ECG HR:70 bpm ECG Measurements Heart Rate 70 AXES QRSd 150 QRS 266 QT 451 T 80 QTc 471 Conclusion ELECTRONIC VENTRICULAR PACEMAKER ABNORMAL RHYTHM ECG UNCONFIRMED REPORT Ventricular paced rhythm No ST elevation or depression. QTc interval 471 Electronically signed by : PARAS MUELLER, 09/24/2024 06:59:19
--- NOTE | 2024-09-23 15:04 | CT_ITS ---
FINAL REPORT CLINICAL HISTORY: possible stroke COMPARISON: None FINDINGS: CTA HEAD TECHNIQUE: Thin section axial CT with contrast with 3D MIP reconstruction This study was performed with techniques to keep radiation doses as low as reasonably achievable, (ALARA). Individualized dose reduction techniques using automated exposure control or adjustment of mA and/or kV according to the patient's size were employed. FINDINGS: No aneurysm is seen. . There is significant calcified plaque in the cavernous and intracranial portions of the internal carotid arteries, that likely produces bilateral internal carotid artery stenoses of at least 50%. There is a persistent origin of the left posterior cerebral artery. No major vessel occlusion is identified. IMPRESSION: Significant calcified plaque in the cavernous and intracranial portions of the internal carotid artery, that likely resulted in significant stenoses of the internal carotid arteries bilaterally of at least 50%. This study was performed using automated techniques to achieve radiation exposure as low as reasonably achievable Reviewed, Interpreted and Dictated by Gretta Rose MD Transcribed by Adelita Guerra Authenticated and [facility]
--- NOTE | 2024-09-23 15:04 | CT_ITS ---
FINAL REPORT CLINICAL HISTORY: possible stroke FINDINGS: CT NECK ANGIO, WITHOUT AND WITH CONTRAST TECHNIQUE: Thin section axial CT with contrast with multiplanar 3D MIP reconstruction. This study was performed with techniques to keep radiation doses as low as reasonably achievable, (ALARA). Individualized dose reduction techniques using automated exposure control or adjustment of mA and/or kV according to the patient''s size were employed. NASCET criteria and technique was utilized during interpretation. FINDINGS: Aortic arch: Arch shows no significant narrowing. Great vessel origins reveal mild stenoses at the origins of the great vessels.. Right carotid: There is approximately 60% stenosis of the proximal right internal carotid artery. Left carotid: Postoperative changes are noted in the left carotid bifurcation, and there is approximately 30% stenosis of the proximal left internal carotid artery. Vertebrals: The vertebral arteries are codominant. No significant stenosis is present. IMPRESSION: 60% stenosis of the right proximal internal carotid artery, with 30% stenosis at the origin of the proximal left internal carotid artery. This study was performed using automated techniques to achieve radiation exposure as low as reasonably Reviewed, Interpreted and Dictated by Gretta Rose MD Transcribed by Adelita Guerra Authenticated and [facility]
--- NOTE | 2024-09-23 15:04 | CT_ITS ---
FINAL REPORT TECHNIQUE: Noncontrast exam This study was performed with techniques to keep radiation doses as low as reasonably achievable, (ALARA). Individualized dose reduction techniques using automated exposure control or adjustment of mA and/or kV according to the patient's size were employed. CLINICAL HISTORY: possible stroke COMPARISON: 07/10/2021 FINDINGS: Moderate atrophy and chronic ischemic white matter changes are noted. There are areas of encephalomalacia in the right parieto-occipital and left frontoparietal regions, similar to the prior CT of 2020. No cortical edema is present. There is no mass or hemorrhage. Ventricles are normal. Bone windows show no skull fracture or obvious obstructive lesion. IMPRESSION: 1. No acute intracranial abnormality or obvious mass. 2. Moderate atrophy and chronic ischemic white matter changes as above. Reviewed, Interpreted and Dictated by Gretta Rose MD Transcribed by Adelita Guerra Authenticated and . [facility]
[2024-09-23] MEDS: 0.9 % SODIUM CHLORIDE 50 ML VIAL IV (15:17)
[2024-09-23] MEDS: SODIUM CHLORIDE 0.9% 10ML SYR (RAD ONLY) 10 ML IV (15:18)
[2024-09-23] MEDS: IOPAMIDOL-370 (76%);100ML BOTTLE 80 ML IV (15:18)
--- NOTE | 2024-09-23 15:25 | ED_ITS ---
Discharge Plan Disposition Patient Disposition: Admitted Clinical Impressions Clinical Impression: Facial numbness, Transient neurological symptoms, Carotid stenosis Discharge ED Provider: Teresita Padilla General Adult HPI <Jose Raul William MD - Last Filed: 09/23/24 15:59> General Chief complaint: Neuro Symptoms/Deficit Stated complaint: Numbess in face and hands Time Seen by Provider: 09/23/24 15:04 Mode of Arrival: Family Vehicle Source of Information: Patient and Relative History of Present Illness HPI narrative: Guevara Kim is an 84-year-old male with a history of A-fib on Eliquis, pacemaker, TIA who presents to the emergency department for complaints of bilateral facial numbness. Patient's last known normal was before he laid down for a nap at 1130 this morning. He then woke up with bilateral facial numbness at 2:30 PM. 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 Patient denies any weakness or numbness elsewhere. Family states that intermittently, he will have episodes where he will have trouble speaking and is difficult to understand. His NIH on arrival is 1. Patient reports chronic urinary retention but denies any dysuria, abdominal pain or chest pain. Related Data Home Medications ?Medication ?Instructions ?Recorded ?Confirmed atorvastatin 80 mg tablet 80 mg PO HS 09/10/17 09/23/24 apixaban 5 mg tablet (Eliquis) 5 mg PO BID 01/29/18 09/23/24 gabapentin 300 mg capsule 300 mg PO BID 01/20/20 09/23/24 fluticasone fur. 100 mcg-umeclid 1 puff inhalation DAILY 05/15/20 09/23/24 62.5 mcg-vilant 25 mcg inhalat.powder metformin 500 mg tablet,extended 1,000 mg PO DAILY 11/29/20 09/23/24 release 24 hr famotidine 40 mg tablet 40 mg PO HS 05/07/23 09/23/24 ferrous sulfate 325 mg (65 mg 325 mg PO DAILY 05/07/23 09/23/24 iron) tablet (FeroSul) lisinopril 5 mg tablet 5 mg PO DAILY 08/09/23 09/23/24 omeprazole 20 mg capsule,delayed 20 mg PO DAILY 11/08/23 09/23/24 release clopidogrel 75 mg tablet 75 mg PO DAILY 02/04/24 09/23/24 nitroglycerin 0.4 mg sublingual 0.4 mg sublingual Q5MINP PRN chest 02/05/24 09/23/24 tablet pain amlodipine 5 mg tablet 5 mg PO DAILY 03/25/24 09/23/24 carvedilol 6.25 mg tablet 6.25 mg PO BID 03/25/24 09/23/24 tamsulosin 0.4 mg capsule 0.8 mg PO HS 07/24/24 09/23/24 albuterol sulfate 90 mcg/actuation 2 puff inhalation Q4-6H PRN copd 09/16/24 09/23/24 aerosol inhaler empagliflozin 10 mg tablet 10 mg PO DAILY 09/16/24 09/23/24 (Jardiance) Previous Rx's ?Medication ?Instructions ?Recorded finasteride 5 mg tablet (Proscar) 5 mg PO DAILY #90 tabs 02/27/24 spironolactone 50 mg tablet 50 mg PO DAILY #30 tabs 07/26/24 Allergies Allergy/AdvReac Type Severity Reaction Status Date / Time Penicillins Allergy Verified 09/16/24 10:16 [facility] <Jose Raul William MD - Last Filed: 09/23/24 15:59> [facility] Disclaimer: The information contained in this section may have been updated after the patient was seen, as this information can be updated by other users. 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 HTN (hypertension) HLD (hyperlipidemia) RHONDA (renal artery stenosis) Dyspnea Edema Congestive heart failure COPD (chronic obstructive pulmonary disease) CAD (coronary artery disease) Surgical History History of heart artery stent S/P cardiac pacemaker procedure S/P cataract extraction History of cholecystectomy History of renal stent Family History Sister Breast cancer Son Diabetes Sister Leukemia Other Heart disease Social History Smoking Status: Never smoker years smoked: 35 second hand exposure: No alcohol intake: never counseling provided: none substance use type: denies use current occupational status: retired Travel in the last 8 weeks: None household members: children housing: house current occupational exposures/hazards: No caffeine: Yes Have you lived/traveled outside [place] in past 30 days?: No Contact w/someone who lives/traveled outside US past 30 days?: No Exposure to someone with infectious disease in past 14 days?: No Do you have a fever (greater than 100.4 F or 38 C)?: No Have you tested positive for COVID-19: No Exposed to someone with COVID-19 in past 14 days?: No Do you have a sore throat?: No Do you have a cough?: No Do you have any weakness?: Yes Do you have any diarrhea?: No Are you experiencing any unusual bleeding?: No Do you have any muscle aches/pain?: No Do you have any abdominal pain?: No Are you experiencing loss of taste or smell?: No Other Medical History Have you received the Flu Vaccine for this season: No Have you received the Pneumonia Vaccine: No <Jose Raul William MD - Last Filed: 09/23/24 15:59> ROS Obtained: Yes Systems reviewed as appropriate & no additional complaints except as documented Physical Exam <Jose Raul William MD - Last Filed: 09/23/24 15:59> General General appearance: alert and in no apparent distress Head Head exam: atraumatic Eye Eye exam: Present normal appearance ENT ENT exam: Present normal external ear exam Neck Neck exam: Present full ROM Chest Chest inspection: Present symmetric chest wall rise Respiratory Respiratory exam: Present normal lung sounds bilaterally; Absent respiratory distress Cardiovascular Cardiovascular exam: Present regular rate and normal rhythm Abdominal Exam Abdominal exam: Present soft; Absent tenderness or guarding exam: Present deferred Extremities Exam Extremities exam: Present normal inspection Back Exam Back exam: Present normal inspection Neurological Exam Neurological exam: Present alert and oriented X3 Expanded Neurological Exam Comment: NIH of 1 for bilateral facial decree sensation. Cranial nerves II through XII otherwise intact. 5 out of 5 strength in bilateral upper and lower extremities. No cerebellar signs. No dysarthria. Appropriately identifies common objects. Sensation intact and equal throughout all extremities. GCS 15 Psychiatric Psychiatric exam: Present normal affect Skin Skin exam: Present warm and dry Medical Decision Making <Jose Raul William MD - Last Filed: 09/23/24 15:59> Medical Records Screening: Per USPSTF and CDC recommendations, given the prevalence of disease in our region, it is our hospital?s policy to screen for HIV and viral Hepatitis for all patients aged 18 and over and those with ongoing risk factors. Han Inquiry Pt receiving controlled substance: No Vital Signs: 09/23/24 14:52 09/23/24 15:22 09/23/24 15:31 Temperature 98.3 F Temperature Source Oral Pulse Rate 72 70 Pulse Rate [Right] 71 Respiratory Rate 18 16 14 Blood Pressure 182/71 H 165/70 H Blood Pressure [Right Arm] 182/71 H Blood Pressure Mean Blood Pressure Mean [Right Arm] 108 Blood Pressure Source [Right Arm] Automatic Cuff Blood Pressure Position [Right Arm] Sitting 02 Sat by Pulse Oximetry 95 98 100 Oxygen Delivery Method Room Air Room Air Room Air 09/23/24 16:00 09/23/24 16:40 09/23/24 17:00 Temperature Temperature Source Pulse Rate 70 70 70 Pulse Rate [Right] Respiratory Rate 15 18 18 Blood Pressure 157/74 H 176/75 H 180/74 H Blood Pressure [Right Arm] Blood Pressure Mean 125 Blood Pressure Mean [Right Arm] Blood Pressure Source [Right Arm] Blood Pressure Position [Right Arm] 02 Sat by Pulse Oximetry 98 98 99 Oxygen Delivery Method Room Air Room Air 09/23/24 17:31 09/23/24 18:00 09/23/24 18:46 Temperature 98.3 F Temperature Source Pulse Rate 70 70 Pulse Rate [Right] Respiratory Rate 15 18 Blood Pressure 167/73 H 191/91 H Blood Pressure [Right Arm] Blood Pressure Mean 105 Blood Pressure Mean [Right Arm] Blood Pressure Source [Right Arm] Blood Pressure Position [Right Arm] 02 Sat by Pulse Oximetry 99 100 Oxygen Delivery Method Room Air Room Air Lab Data Lab Results 09/23/24 15:12: WBC 7.6, RBC 3.80 L, Hgb 11.0 L, Hct 35.6 L, MCV 93.7, MCH 28.9, MCHC 30.9 L, RDW 16.0, Plt Count 189, MPV 12.9 H, Neut % (Auto) 62.2, Lymph % (Auto) 25.7, [place] % (Auto) 9.7 H, Eos % (Auto) 1.7, Baso % (Auto) 0.4, Neut # (Auto) 4.7, Lymph # (Auto) 1.9, [place] # (Auto) 0.7, Eos # (Auto) 0.1, Baso # (Auto) 0.0, PT 10.5, INR 0.94, APTT 27.6, Sodium 141, Potassium 4.2, Chloride 103, Carbon Dioxide 29, Anion Gap 13.2, BUN 21 H, Creatinine 1.40 H, Estimated Creat Clear 42, Estimated GFR 48 L, Est GFR ( Amer) 58 L, Glucose 141 H, Calcium 8.8, Total Bilirubin 1.6 H, AST 29, ALT 21, Alkaline Phosphatase 97, Troponin I < 0.01, Total Protein 7.1, Albumin 4.4, Globulin 2.7, Albumin/Globulin Ratio 1.6, Triglycerides 290 H, Cholesterol 133 L, LDL Cholesterol Direct 59.98 L, VLDL Cholesterol 58 H, HDL Cholesterol 28 L, C holesterol/HDL Ratio 4.8 H, Plasma/Serum Alcohol < 10 09/23/24 15:59: SARS-CoV-2 (PCR) Not detected, Influenza A Untype (PCR) Not detected, Influenza Type B (PCR) Not detected 09/23/24 16:35: Urine Color Yellow, Urine Appearance Clear, Urine pH 7.0, Ur Specific [place] 1.010, Urine Protein Negative, Urine Glucose (UA) 3+, Urine Ketones Negative, Urine Blood Negative, Urine Nitrate Negative, Urine Bilirubin Negative, Urine Urobilinogen 0.2, Ur Leukocyte Esterase Trace, Urine RBC None, Urine WBC 5-10, Ur Squamous Epith Cells Occasional, Urine Bacteria Trace, Urine Opiates Screen Negative, Urine Methadone Screen Negative, Ur Barbituates Screen Negative, Ur Phencyclidine Scrn Negative, Ur Amphetamines Screen Negative, U Benzodiazepines Scrn Negative, Urine Cocaine Screen Negative, U Marijuana (THC) Screen Negative 09/23/24 18:27: Troponin I < 0.01 09/23/24 15:12 09/23/24 15:12 Orders (Tests/Meds): ED MEDICATIONS Generic Name Dose Route Start Last Admin Trade Name Jeramy PRN Reason Stop Dose Admin Acetaminophen 650 mg 09/23/24 18:08 Acetaminophen 325mg Tab PO 10/23/24 18:07 Q6HP PRN Fever or Mild Pain (1-3) Sodium Chloride 10 ml 09/23/24 15:04 Sodium Chloride 0.9% 10ml Flush Syringe IV 10/23/24 15:03 NEEDED PRN Maintain IV Site Sodium Chloride 10 ml 09/23/24 15:17 09/23/24 15:18 Sodium Chloride 0.9% 10ml Syr (Rad Only) IV 10/23/24 15:16 10 ml NEEDED PRN Administration Maintain IV Site Discontinued Medications Generic Name Dose Route Start Last Admin Trade Name Jeramy PRN Reason Stop Dose Admin Apixaban 5 mg 09/23/24 21:00 09/23/24 21:34 Apixaban 5mg Tablet PO 09/23/24 21:01 5 mg ONCE ONE Administration Atorvastatin Calcium 80 mg 09/23/24 21:00 09/23/24 21:34 Atorvastatin 40mg Tablet PO 09/23/24 21:01 80 mg ONCE ONE Administration Carvedilol 6.25 mg 09/23/24 21:00 09/23/24 21:34 Carvedilol 6.25mg Tablet PO 09/23/24 21:01 6.25 mg ONCE ONE Administration Gabapentin 300 mg 09/23/24 21:00 09/23/24 21:34 Gabapentin 300mg Capsule PO 09/23/24 21:01 300 mg ONCE ONE Administration Iopamidol 80 ml 09/23/24 15:17 09/23/24 15:18 Iopamidol-370 (76%);100ml Bottle IV 09/23/24 15:18 80 ml ONCE ONE Administration Metformin HCl 1,000 mg 09/23/24 21:00 09/23/24 21:34 Metformin 500mg Tablet PO 09/23/24 21:01 1,000 mg ONCE ONE Administration Sodium Chloride 50 ml 09/23/24 15:17 09/23/24 15:17 0.9 % Sodium Chloride 50 Ml Vial IV 09/23/24 15:18 50 ml ONCE ONE Administration Tamsulosin HCl 0.8 mg 09/23/24 21:00 09/23/24 21:34 Tamsulosin 0.4mg Capsule PO 09/23/24 21:01 0.8 mg ONCE ONE Administration ORDERS Category Date Time Status CT angio head Stat Cat Scan 09/23/24 15:[address] angio neck Stat Cat Scan 09/23/24 15:[address] head/brain wo con Stat Cat Scan 09/23/24 15:04 Completed Consult to Physician [CONS] Routine Cons 09/23/24 17:20 Ordered Activated Partial Thrombo Time Stat Lab 09/23/24 15:12 Completed Complete Blood Count Auto Diff Stat Lab 09/23/24 15:12 Completed Comprehensive Metabolic Panel Stat Lab 09/23/24 15:12 Completed Drug Screen,Urine Stat Lab 09/23/24 16:35 Completed Ethyl Alcohol Stat Lab 09/23/24 15:12 Completed Lipid Panel Stat Lab 09/23/24 15:12 Completed Prothrombin Time INR Stat Lab 09/23/24 15:12 Completed Rapid PCR Covid and Flu A/B Stat Lab 09/23/24 15:59 Completed Troponin I Q3H Lab 09/23/24 18:27 Completed Troponin I Q3H Lab 09/23/24 21:19 Completed Troponin I Stat Lab 09/23/24 15:12 Completed Urinalysis and Microscopic Stat Lab 09/23/24 16:35 Completed ECG Data Tracing #1: I reviewed this ECG and interpreted as documented below: EKG interpreted by me personally. Ventricularly paced rhythm. Ventricular rate of [address] elevation or depression per Sgarbossa criteria. QTc 471. Medical Decision Narrative: Guevara Kim is an 84y male with a history of previous right-sided stroke, TIA, A-fib on Eliquis, hypertension who presents to the emergency department with family for concern for bilateral facial numbness. Reportedly, patient went to bed feeling normal at 1130 this morning and woke from his nap at 230 complaining of facial numbness and both sides of his face. 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 Family also notes that he has had some difficulty speaking at times and often mumbles his words but this has been going on for some time. On arrival, patient is hypertensive with blood pressure 182/71, heart rate within normal and is, breathing comfortably on room air with oxygen saturation at 100% SpO2, afebrile. Physical exam, as stated above, reveals mild decrease in station throughout all aspects of both sides of his face but cranial nerves II through XII otherwise intact. Moving all extremities spontaneously and following commands appropriately. 5 out of 5 strength in all extremities. Sensation grossly intact throughout all extremities. No cerebellar signs. Differential diagnosis includes, but is not limited to: Ischemic stroke, hemorrhagic stroke, electrolyte derangement, UTI, hypoglycemia, ACS, among others. Workup in the emergency department included: Stroke alert activation with CTA of the head and neck, CT head, EKG, APTT, CMP, UDS, lipid panel, PT/INR, troponin, UA, fingerstick blood glucose, CBC with differential, triglycerides, lipid panel, alcohol level, COVID/flu/RSV On my interpretation of patient CT imaging, no LVO, no acute hemorrhage or midline shift. Evidence of old right posterior stroke. Consultation was had with [facility] via [facility] who also confirmed that there is no evidence of LVO acute hemorrhage or midline shift. Given bilateral nature of patient's symptoms, low concern for stroke etiology, however if symptoms do not improve, will consider admission for MRI. No acute neurological interventions recommended given low NIH and distribution of symptoms. At this time, patient's care was handed off to the oncoming physician, Dr. Padilla, pending completion of his workup. At this time, patient states that his symptoms are improving but not completely gone. If patient's symptoms do not totally improve, he may require admission for MRI, however patient's ultimate disposition to be determined by the oncoming physician once workup is completed. <Teresita Padilla, DO - Last Filed: 09/23/24 23:26> Vital Signs: 09/23/24 14:52 09/23/24 15:22 09/23/24 15:31 Temperature 98.3 F Temperature Source Oral Pulse Rate 72 70 Pulse Rate [Right] 71 Respiratory Rate 18 16 14 Blood Pressure 182/71 H 165/70 H Blood Pressure [Right Arm] 182/71 H Blood Pressure Mean Blood Pressure Mean [Right Arm] 108 Blood Pressure Source [Right Arm] Automatic Cuff Blood Pressure Position [Right Arm] Sitting 02 Sat by Pulse Oximetry 95 98 100 Oxygen Delivery Method Room Air Room Air Room Air 09/23/24 16:00 09/23/24 16:40 09/23/24 17:00 Temperature Temperature Source Pulse Rate 70 70 70 Pulse Rate [Right] Respiratory Rate 15 18 18 Blood Pressure 157/74 H 176/75 H 180/74 H Blood Pressure [Right Arm] Blood Pressure Mean 125 Blood Pressure Mean [Right Arm] Blood Pressure Source [Right Arm] Blood Pressure Position [Right Arm] 02 Sat by Pulse Oximetry 98 98 99 Oxygen Delivery Method Room Air Room Air 09/23/24 17:31 09/23/24 18:00 09/23/24 18:46 Temperature 98.3 F Temperature Source Pulse Rate 70 70 Pulse Rate [Right] Respiratory Rate 15 18 Blood Pressure 167/73 H 191/91 H Blood Pressure [Right Arm] Blood Pressure Mean 105 Blood Pressure Mean [Right Arm] Blood Pressure Source [Right Arm] Blood Pressure Position [Right Arm] 02 Sat by Pulse Oximetry 99 100 Oxygen Delivery Method Room Air Room Air Lab Data Lab Results 09/23/24 15:12: WBC 7.6, RBC 3.80 L, Hgb 11.0 L, Hct 35.6 L, MCV 93.7, MCH 28.9, MCHC 30.9 L, RDW 16.0, Plt Count 189, MPV 12.9 H, Neut % (Auto) 62.2, Lymph % (Auto) 25.7, [place] % (Auto) 9.7 H, Eos % (Auto) 1.7, Baso % (Auto) 0.4, Neut # (Auto) 4.7, Lymph # (Auto) 1.9, [place] # (Auto) 0.7, Eos # (Auto) 0.1, Baso # (Auto) 0.0, PT 10.5, INR 0.94, APTT 27.6, Sodium 141, Potassium 4.2, Chloride 103, Carbon Dioxide 29, Anion Gap 13.2, BUN 21 H, Creatinine 1.40 H, Estimated Creat Clear 42, Estimated GFR 48 L, Est GFR ( Amer) 58 L, Glucose 141 H, Calcium 8.8, Total Bilirubin 1.6 H, AST 29, ALT 21, Alkaline Phosphatase 97, Troponin I < 0.01, Total Protein 7.1, Albumin 4.4, Globulin 2.7, Albumin/Globulin Ratio 1.6, Triglycerides 290 H, Cholesterol 133 L, LDL Cholesterol Direct 59.98 L, VLDL Cholesterol 58 H, HDL Cholesterol 28 L, C holesterol/HDL Ratio 4.8 H, Plasma/Serum Alcohol < 10 09/23/24 15:59: SARS-CoV-2 (PCR) Not detected, Influenza A Untype (PCR) Not detected, Influenza Type B (PCR) Not detected 09/23/24 16:35: Urine Color Yellow, Urine Appearance Clear, Urine pH 7.0, Ur Specific [place] 1.010, Urine Protein Negative, Urine Glucose (UA) 3+, Urine Ketones Negative, Urine Blood Negative, Urine Nitrate Negative, Urine Bilirubin Negative, Urine Urobilinogen 0.2, Ur Leukocyte Esterase Trace, Urine RBC None, Urine WBC 5-10, Ur Squamous Epith Cells Occasional, Urine Bacteria Trace, Urine Opiates Screen Negative, Urine Methadone Screen Negative, Ur Barbituates Screen Negative, Ur Phencyclidine Scrn Negative, Ur Amphetamines Screen Negative, U Benzodiazepines Scrn Negative, Urine Cocaine Screen Negative, U Marijuana (THC) Screen Negative 09/23/24 18:27: Troponin I < 0.01 Orders (Tests/Meds): ED MEDICATIONS Generic Name Dose Route Start Last Admin Trade Name Freq PRN Reason Stop Dose Admin Acetaminophen 650 mg 09/23/24 18:08 Acetaminophen 325mg Tab PO 10/23/24 18:07 Q6HP PRN Fever or Mild Pain (1-3) Sodium Chloride 10 ml 09/23/24 15:04 Sodium Chloride 0.9% 10ml Flush Syringe IV 10/23/24 15:03 NEEDED PRN Maintain IV Site Sodium Chloride 10 ml 09/23/24 15:17 09/23/24 15:18 Sodium Chloride 0.9% 10ml Syr (Rad Only) IV 10/23/24 15:16 10 ml NEEDED PRN Administration Maintain IV Site Discontinued Medications Generic Name Dose Route Start Last Admin Trade Name Freq PRN Reason Stop Dose Admin Apixaban 5 mg 09/23/24 21:00 09/23/24 21:34 Apixaban 5mg Tablet PO 09/23/24 21:01 5 mg ONCE ONE Administration Atorvastatin Calcium 80 mg 09/23/24 21:00 09/23/24 21:34 Atorvastatin 40mg Tablet PO 09/23/24 21:01 80 mg ONCE ONE Administration Carvedilol 6.25 mg 09/23/24 21:00 09/23/24 21:34 Carvedilol 6.25mg Tablet PO 09/23/24 21:01 6.25 mg ONCE ONE Administration Gabapentin 300 mg 09/23/24 21:00 09/23/24 21:34 Gabapentin 300mg Capsule PO 09/23/24 21:01 300 mg ONCE ONE Administration Iopamidol 80 ml 09/23/24 15:17 09/23/24 15:18 Iopamidol-370 (76%);100ml Bottle IV 09/23/24 15:18 80 ml ONCE ONE Administration Metformin HCl 1,000 mg 09/23/24 21:00 09/23/24 21:34 Metformin 500mg Tablet PO 09/23/24 21:01 1,000 mg ONCE ONE Administration Sodium Chloride 50 ml 09/23/24 15:17 09/23/24 15:17 0.9 % Sodium Chloride 50 Ml Vial IV 09/23/24 15:18 50 ml ONCE ONE Administration Tamsulosin HCl 0.8 mg 09/23/24 21:00 09/23/24 21:34 Tamsulosin 0.4mg Capsule PO 09/23/24 21:01 0.8 mg ONCE ONE Administration ORDERS Category Date Time Status CT angio head Stat Cat Scan 09/23/24 15:[address] angio neck Stat Cat Scan 09/23/24 15:[address] head/brain wo con Stat Cat Scan 09/23/24 15:04 Completed Consult to Physician [CONS] Routine Cons 09/23/24 17:20 Ordered Activated Partial Thrombo Time Stat Lab 09/23/24 15:12 Completed Complete Blood Count Auto Diff Stat Lab 09/23/24 15:12 Completed Comprehensive Metabolic Panel Stat Lab 09/23/24 15:12 Completed Drug Screen,Urine Stat Lab 09/23/24 16:35 Completed Ethyl Alcohol Stat Lab 09/23/24 15:12 Completed Lipid Panel Stat Lab 09/23/24 15:12 Completed Prothrombin Time INR Stat Lab 09/23/24 15:12 Completed Rapid PCR Covid and Flu A/B Stat Lab 09/23/24 15:59 Completed Troponin I Q3H Lab 09/23/24 18:27 Completed Troponin I Q3H Lab 09/23/24 21:19 Completed Troponin I Stat Lab 09/23/24 15:12 Completed Urinalysis and Microscopic Stat Lab 09/23/24 16:35 Completed Medical Decision Narrative: Guevara Kim is an 84y male with a history of previous right-sided stroke, TIA, A-fib on Eliquis, hypertension who presents to the emergency department with family for concern for bilateral facial numbness. Reportedly, patient went to bed feeling normal at 1130 this morning and woke from his nap at 230 complaining of facial numbness and both sides of his face. 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 Family also notes that he has had some difficulty speaking at times and often mumbles his words but this has been going on for some time. On arrival, patient is hypertensive with blood pressure 182/71, heart rate within normal and is, breathing comfortably on room air with oxygen saturation at 100% SpO2, afebrile. Physical exam, as stated above, reveals mild decrease in station throughout all aspects of both sides of his face but cranial nerves II through XII otherwise intact. Moving all extremities spontaneously and following commands appropriately. 5 out of 5 strength in all extremities. Sensation grossly intact throughout all extremities. No cerebellar signs. Differential diagnosis includes, but is not limited to: Ischemic stroke, hemorrhagic stroke, electrolyte derangement, UTI, hypoglycemia, ACS, among others. Workup in the emergency department included: Stroke alert activation with CTA of the head and neck, CT head, EKG, APTT, CMP, UDS, lipid panel, PT/INR, troponin, UA, fingerstick blood glucose, CBC with differential, triglycerides, lipid panel, alcohol level, COVID/flu/RSV On my interpretation of patient CT imaging, no LVO, no acute hemorrhage or midline shift. Evidence of old right posterior stroke. Consultation was had with [facility] via [facility] who also confirmed that there is no evidence of LVO acute hemorrhage or midline shift. Given bilateral nature of patient's symptoms, low concern for stroke etiology, however if symptoms do not improve, will consider admission for MRI. No acute neurological interventions recommended given low NIH and distribution of symptoms. At this time, patient's care was handed off to the oncoming physician, Dr. Padilla, pending completion of his workup. At this time, patient states that his symptoms are improving but not completely gone. If patient's symptoms do not totally improve, he may require admission for MRI, however patient's ultimate disposition to be determined by the oncoming physician once workup is completed. DO Randy: I assumed care of the patient at 1500. On my assessment, he is feeling a little bit better. Vitals are reassuring. CT scans demonstrate carotid stenosis, no LVO. Chronic white matter changes but no obvious acute stroke. I considered tPA/TNK, however patient had symptoms that resolved upon my reassessment had very low INH to begin with. I considered thrombectomy however patient is no large vessel occlusion. After shared decision-making with patient and family, they would feel more comfortable with admission for MRI for further workup as opposed to discharge home. Previous provider had spoken with neurology at [facility] who recommended MRI for symptoms. Given this, after interactive discussion with the patient's primary care provider, he will be admitted for further workup of transient neurologic symptoms. He was admitted in stable condition. Critical Care <Jose Raul William MD - Last Filed: 09/23/24 15:59> Critical Care Time Critical Care Time: Yes Attestation: On 09/23/24, the high probability of a clinically significant, sudden or life threatening deterioration of the following system(s) required my full and direct attention, intervention and personal management. The time I documented below is in addition to time spent performing reported procedures but includes the following listed in this critical care notation. Total Time Total Critical Care Time: 35
--- NOTE | 2024-09-23 15:36 | PC.NURSE ---
Called [facility] for a stroke consult for Dr. William
--- NOTE | 2024-09-23 15:36 | PC.NURSE ---
Gave patient a urinal for a U/A. Patient unable to urinate as of now.
[2024-09-23 15:42] LABS: Albumin Level 4.4 g/dl (3.5-5.0); Chloride 103 mmol/L (98-107); Potassium 4.2 mmoL/L (3.5-5.1); Sodium 141 mmol/L (136-145)
[2024-09-23 15:45] LABS: Alanine Aminotransferase 21 U/L (12-78); Albumin/Globulin Ratio 1.6 (1.1-1.8); Alkaline Phosphatase 97 U/L (38-126); Anion Gap 13.2 mEq/L (5-15); Aspartate Amino Transferase 29 U/L (17-59); Bilirubin,Total 1.6 mg/dl (0.2-1.3); Blood Urea Nitrogen 21 mg/dl (9-20); Calcium 8.8 mg/dl (8.4-10.2); Carbon Dioxide 29 mmol/L (22.0-30.0); Cholesterol 133 mg/dl (140-200); Creatinine Clearance Estimated 42 mL/min (50-200); Estimated Glomerular Filt Rate 48 ml/min (>60); GFR (African American) 58 ML/MIN (>60); Globulin 2.7 g/dL (1.3-3.2); Glucose 141 mg/dl (74-100); Total Protein,Serum 7.1 g/dl (6.3-8.2); Triglycerides 290 mg/dl (30-150); VLDL Cholesterol 58 mg/dL (0-40)
[2024-09-23 15:46] LABS: Chol/HDL Ratio 4.8 (1-3.5); HDL Cholesterol 28 mg/dl (40-60)
[2024-09-23 15:47] LABS: Basophils % 0.4 % (0.1-2.0); Eosinophils # 0.1 K/mm3 (0.0-0.4); Eosinophils % 1.7 % (0.1-12.0); Hematocrit 35.6 % (42.0-52.0); Lymphocytes # 1.9 K/mm3 (0.7-4.5); Lymphocytes % 25.7 % (10-50); Mean Corpuscular HGB Conc 30.9 g/dL (31.8-35.4); Mean Corpuscular Hemoglobin 28.9 pg (27.0-31.2); Mean Corpuscular Volume 93.7 fl (80-94); Mean Platelet Volume 12.9 fl (7.4-10.4); Monocytes # 0.7 K/mm3 (0.1-1.0); Monocytes % 9.7 % (1.7-9.3); Neutrophils # 4.7 K/mm3 (1.8-7.8); Neutrophils % 62.2 % (37.0-80.0); Platelet Count 189 K/mm3 (142-424); White Blood Count 7.6 K/mm3 (4.8-10.8)
[2024-09-23 15:50] LABS: Ethyl Alcohol < 10 mg/dl (0-10)
[2024-09-23 15:57] LABS: Direct LDL Cholesterol 59.98 mg/dL (100-129)
[2024-09-23 16:06] LABS: Coronavirus 19, PCR Not Detected (NotDetected); Influenza A, PCR Not Detected (NotDetected); Influenza B, PCR Not Detected (NotDetected)
[2024-09-23 16:19] LABS: Activated Partial Thrombo Time 27.6 seconds (22.5-28.5); INR 0.94 (0.9-1.1); Prothrombin Time 10.5 seconds (9.2-12.1); Troponin I < 0.01 ng/ml (0.00-0.034)
[2024-09-23 16:46] LABS: Microscopic, Urine URINE MICROSCOPIC (MICROSCOPIC)
[2024-09-23 16:50] LABS: Appearance,Urine CLEAR (Clear); Bilirubin,Urine Negative (Negative); Blood, Urine Negative (Negative); Color,Urine YELLOW (Yellow); Glucose,Urine (UA) 3+ (Negative); Ketones,Urine Negative (Negative); Leukocyte Esterase,Urine TRACE (Negative); Nitrate,Urine Negative (Negative); Protein,Urine Negative (Negative); Urobilinogen,Urine 0.2 EU/dl (0.2)
[2024-09-23 17:07] LABS: Amphetamine/Metha Screen,Urine Negative ng/ml (<1000)
[2024-09-23 17:08] LABS: Barbiturates Screen,Urine Negative ng/ml (<200); Benzodiazepines Screen,Urine Negative ng/ml (<200)
[2024-09-23 17:09] LABS: Cannabinoid Screen,Urine Negative ng/ml (<50); Cocaine Screen,Urine Negative ng/ml (<300)
[2024-09-23 17:10] LABS: Phencyclidine Screen,Urine Negative ng/ml (<25)
[2024-09-23 17:13] LABS: Methadone Screen,Urine Negative ng/ml (<300)
[2024-09-23 17:14] LABS: Opiate Screen,Urine Negative ng/ml (<300)
[2024-09-23 17:28] LABS: Bacteria,Urine Trace /lpf; Squamous Epithelial Cell,Urine Occasional #/hpf (0-5)
--- NOTE | 2024-09-23 17:30 | PC.NURSE ---
Dr. Haris bob for Dr. Quan.
--- NOTE | 2024-09-23 17:42 | PC.NURSE ---
Dr. Padilla talking to Dr. Carballo at this time.
--- NOTE | 2024-09-23 18:07 | PC.NURSE ---
speaking with Dr. Quan.
--- NOTE | 2024-09-23 18:47 | PC.NURSE ---
arrived by w/c from ED
[2024-09-23 19:39] LABS: Troponin I < 0.01 ng/ml (0.00-0.034)
[2024-09-23] MEDS: METFORMIN 500MG TABLET 1000 MG PO (21:34)
[2024-09-23] MEDS: GABAPENTIN 300MG CAPSULE 300 MG PO (21:34)
[2024-09-23] MEDS: CARVEDILOL 6.25MG TABLET 6.25 MG PO (21:34)
[2024-09-23] MEDS: ATORVASTATIN 40MG TABLET 80 MG PO (21:34)
[2024-09-23] MEDS: APIXABAN 5MG TABLET 5 MG PO (21:34)
[2024-09-23] MEDS: TAMSULOSIN 0.4MG CAPSULE 0.8 MG PO (21:34)
[2024-09-23 22:07] LABS: Troponin I < 0.01 ng/ml (0.00-0.034)
[2024-09-24] VITALS: BP 124/53; PULSE 70; PULSE 72; RESP 17; TEMP 36.8; O2SAT 98
[2024-09-24 03:03] LABS: POC Glucose,Bedside 186 (70-110)
--- NOTE | 2024-09-24 03:42 | PC.NURSE ---
patient has rested well. patient is alert and oriented, no complaints of pain, no complaints of numbness, tolerating room air with O2 sats >95%, visitor at bedside, call button is in reach
[2024-09-24 04:00] VITALS: BP 137/63; PULSE 70; RESP 18; TEMP 36.7; O2SAT 92; BMI 27.3
[2024-09-24 07:37] VITALS: BP 156/74; PULSE 72; RESP 18; TEMP 36.6; O2SAT 97
[2024-09-24 08:00] VITALS: PULSE 80
[2024-09-24 08:50] LABS: MANUAL DIFFERENTIAL MANUAL DIFFERENTIAL (MANUAL DIFF)
[2024-09-24 08:53] LABS: Basophils % 0.3 % (0.1-2.0); Eosinophils # 0.1 K/mm3 (0.0-0.4); Eosinophils % 1.5 % (0.1-12.0); Hematocrit 36.7 % (42.0-52.0); Hemoglobin 11.2 g/dL (14.1-18.0); Lymphocytes # 1.6 K/mm3 (0.7-4.5); Lymphocytes % 20.2 % (10-50); Mean Corpuscular HGB Conc 30.5 g/dL (31.8-35.4); Mean Corpuscular Hemoglobin 28.9 pg (27.0-31.2); Mean Corpuscular Volume 94.6 fl (80-94); Mean Platelet Volume 12.2 fl (7.4-10.4); Monocytes # 0.6 K/mm3 (0.1-1.0); Monocytes % 7.8 % (1.7-9.3); Neutrophils # 5.6 K/mm3 (1.8-7.8); Neutrophils % 69.9 % (37.0-80.0); Platelet Count 170 K/mm3 (142-424); Red Blood Count 3.88 M/mm3 (4.60-6.20); Red Cell Distribution Width 16.4 % (11.5-17.5); White Blood Count 7.9 K/mm3 (4.8-10.8)
[2024-09-24 09:00] LABS: Chloride 106 mmol/L (98-107); Potassium 4.4 mmoL/L (3.5-5.1); Sodium 143 mmol/L (136-145)
[2024-09-24 09:03] LABS: Anion Gap 14.4 mEq/L (5-15); Blood Urea Nitrogen 21 mg/dl (9-20); Carbon Dioxide 27 mmol/L (22.0-30.0); Creatinine Clearance Estimated 37 mL/min (50-200); Estimated Glomerular Filt Rate 41 ml/min (>60); GFR (African American) 50 ML/MIN (>60)
[2024-09-24 09:04] LABS: Calcium 8.9 mg/dl (8.4-10.2); Glucose 154 mg/dl (74-100)
--- NOTE | 2024-09-24 09:05 | P.HPDS_ITS ---
General Admission date:: 09/23/24 Discharge date: 09/24/24 *Admission Date: 09/23/24 *Chief complaint: Facial numbness *History of present illness: Mr. 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 Patient states he awakened from a nap and felt the numbness. He experienced this about a week ago and was told by cardiology at an office visit to come to the ER if this occurred again. Son is with him and states he is always somewhat confused at times. Patient denies any confusion, visual changes, difficulty with speaking, movement of arms or legs, dysphagia, and speaking. He has not had a headache. He always experienced some dizziness but has not had any recent falls. He has been able to walk and uses a cane as usual. Patient denies chest pain and shortness of breath. He has had diarrhea for the last 2 days after eating some ribs about 2 days ago along with some abdominal discomfort with belching. He had about 3 stools yesterday and describes 3 during the night since admission. He denies any nausea or vomiting. He denies hematochezia melena or hematemesis. With evaluation in the emergency room stroke team was contacted at [facility]. He had a thorough workup with a CTA of the neck and the head as well as CT of the head. There were no acute changes noted. Due to the lingering of the numbness in the face he was admitted for further evaluation and treatment. To note also in the emergency room blood pressure was quite elevated. This a.m. patient denies any facial numbness. He states the numbness went away in the emergency room. Blood pressure has improved. He has continued to have diarrhea through the night. [facility] Disclaimer: The information contained in this section may have been updated after the patient was seen, as this information can be updated by other users. Medical History (Updated 09/24/24 @ 09:23 by Ana Garcia APRN) Stroke-like symptoms Pulmonary nodule Diastolic dysfunction DM2 (diabetes mellitus, type 2) Chronic a-fib Left lower lobe pneumonia COVID Pneumonia due to COVID-19 virus Positive blood cultures Respiratory failure with hypoxia Closed right fibular fracture SIRS (systemic inflammatory response syndrome) Heart attack History of left heart catheterization (LHC) Abnormal result of cardiovascular function study Tachy-gerry syndrome Dizziness Sinus pause half-way current use 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 therapy HTN (hypertension) HLD (hyperlipidemia) RHONDA (renal artery stenosis) Dyspnea Edema Congestive heart failure COPD (chronic obstructive pulmonary disease) CAD (coronary artery disease) Surgical History History of heart artery stent S/P cardiac pacemaker procedure S/P cataract extraction History of cholecystectomy History of renal stent Family History Sister Breast cancer Son Diabetes Sister Leukemia Other Heart disease Social History Smoking Status: Never smoker years smoked: 35 second hand exposure: No alcohol intake: never counseling provided: none substance use type: denies use current occupational status: retired Travel in the last 8 weeks: None household members: children housing: house current occupational exposures/hazards: No caffeine: Yes Have you lived/traveled outside [place] in past 30 days?: No Contact w/someone who lives/traveled outside US past 30 days?: No Exposure to someone with infectious disease in past 14 days?: No Do you have a fever (greater than 100.4 F or 38 C)?: No Have you tested positive for COVID-19: No Exposed to someone with COVID-19 in past 14 days?: No Do you have a sore throat?: No Do you have a cough?: No Do you have any weakness?: Yes Do you have any diarrhea?: No Are you experiencing any unusual bleeding?: No Do you have any muscle aches/pain?: No Do you have any abdominal pain?: No Are you experiencing loss of taste or smell?: No Other Medical History Have you received the Flu Vaccine for this season: Yes Have you received the Pneumonia Vaccine: Yes Review of Systems Constitutional Constitutional: Denies body ache(s), Denies chills, Denies fever(s), Denies frequent falls, Denies headache(s) and Reports poor appetite Eyes Eyes: Denies change in vision ENT Ears, Nose, Mouth, and Throat: Reports abnormal hearing (Wears hearing aids), Reports dizziness, Denies dysphagia, Denies otalgia, Denies headache(s), Denies nasal congestion, Denies sore throat and Reports vertigo *Cardiovascular Cardiovascular: Denies chest pain, Denies dyspnea, Denies edema, Denies irregular heart rhythm, Denies leg edema, Denies palpitations and Denies syncope *Respiratory Respiratory: Denies chest congestion, Denies dyspnea and Denies hemoptysis *Gastrointestinal Gastrointestinal: Reports abdominal pain, Reports belching, Denies constipation, Reports diarrhea, Denies dyspepsia, Denies dysphagia, Denies hematemesis, Denies melena and Denies vomiting Comments: Stools are dark due to iron that he takes *Genitourinary Genitourinary: Denies difficulty urinating *Musculoskeletal Musculoskeletal: Reports abnormal gait (Has used a cane for walking long-term) *Neurologic Neurologic: Reports abnormal gait (Has used a cane for walking long-term), Reports abnormal hearing (Wears hearing aids), Denies abnormal speech, Denies behavioral changes, Denies confusion, Denies convulsions, Reports dizziness, Denies frequent falls, Denies headache(s), Denies syncope and Reports vertigo Psychiatric Psychiatric: Denies behavioral changes and Denies confusion Endocrine Endocrine: Denies palpitations Exam Data for Last 24 hours Vital signs and Labs for Last 24 Hours: Temp Pulse Resp BP Pulse Ox O2 Del Method 97.8 F 80 18 156/74 H 97 Room Air 09/24/24 07:37 09/24/24 08:00 09/24/24 07:37 09/24/24 07:37 09/24/24 07:37 09/24/24 07:37 Laboratory Results - last 24 hr 09/23/24 15:12: WBC 7.6, RBC 3.80 L, Hgb 11.0 L, Hct 35.6 L, MCV 93.7, MCH 28.9, MCHC 30.9 L, RDW 16.0, Plt Count 189, MPV 12.9 H, Neut % (Auto) 62.2, Lymph % (Auto) 25.7, [place] % (Auto) 9.7 H, Eos % (Auto) 1.7, Baso % (Auto) 0.4, Neut # (Auto) 4.7, Lymph # (Auto) 1.9, [place] # (Auto) 0.7, Eos # (Auto) 0.1, Baso # (Auto) 0.0, PT 10.5, INR 0.94, APTT 27.6, Sodium 141, Potassium 4.2, Chloride 103, Carbon Dioxide 29, Anion Gap 13.2, BUN 21 H, Creatinine 1.40 H, Estimated Creat Clear 42, Estimated GFR 48 L, Est GFR ( Amer) 58 L, Glucose 141 H, Calcium 8.8, Total Bilirubin 1.6 H, AST 29, ALT 21, Alkaline Phosphatase 97, Troponin I < 0.01, Total Protein 7.1, Albumin 4.4, Globulin 2.7, Albumin/Globulin Ratio 1.6, Triglycerides 290 H, Cholesterol 133 L, LDL Cholesterol Direct 59.98 L, VLDL Cholesterol 58 H, HDL Cholesterol 28 L, Cholesterol/HDL Ratio 4.8 H, Plasma/Serum Alcohol < 10 09/23/24 15:59: SARS-CoV-2 (PCR) Not detected, Influenza A Untype (PCR) Not detected, Influenza Type B (PCR) Not detected 09/23/24 16:35: Urine Color Yellow, Urine Appearance Clear, Urine pH 7.0, Ur Specific [place] 1.010, Urine Protein Negative, Urine Glucose (UA) 3+, Urine Ketones Negative, Urine Blood Negative, Urine Nitrate Negative, Urine Bilirubin Negative, Urine Urobilinogen 0.2, Ur Leukocyte Esterase Trace, Urine RBC None, Urine WBC 5-10, Ur Squamous Epith Cells Occasional, Urine Bacteria Trace, Urine Opiates Screen Negative, Urine Methadone Screen Negative, Ur Barbituates Screen Negative, Ur Phencyclidine Scrn Negative, Ur Amphetamines Screen Negative, U Benzodiazepines Scrn Negative, Urine Cocaine Screen Negative, U Marijuana (THC) Screen Negative 09/23/24 18:27: Troponin I < 0.01 09/23/24 21:19: Troponin I < 0.01 09/23/24 22:13: POC Glucose 186 H 09/24/24 08:45: WBC 7.9, RBC 3.88 L, Hgb 11.2 L, Hct 36.7 L, MCV 94.6 H, MCH 28.9, MCHC 30.5 L, RDW 16.4, Plt Count 170, MPV 12.2 H, Neut % (Auto) 69.9, Lymph % (Auto) 20.2, [place] % (Auto) 7.8, Eos % (Auto) 1.5, Baso % (Auto) 0.3, Neut # (Auto) 5.6, Lymph # (Auto) 1.6, [place] # (Auto) 0.6, Eos # (Auto) 0.1, Baso # (Auto) 0.0, Sodium 143, Potassium 4.4, Chloride 106, Carbon Dioxide 27, Anion Gap 14.4, BUN 21 H, Creatinine 1.60 H, Estimated Creat Clear 37, Estimated GFR 41 L, Est GFR ( Amer) 50 L, Glucose 154 H, Calcium 8.9 I & O for Last 24 hours: Intake & Output 09/21/24 09/22/24 09/23/24 09/24/24 11:59 11:59 11:59 11:59 Intake Total 600 / 600 Output Total 0 / 0 Balance 600 / 600 Weight 170 lb 8 oz Constitutional Constitutional: no acute distress Comments: Lying comfortably in the bed. He has completed all of his breakfast. *Routine HEENT Exam Head: Present normocephalic and atraumatic Eye: Present EOMI and PERRL; Absent conjunctival icterus, scleral injection or conjunctivae pink ENT: Present mucous membranes moist and oropharynx clear *Routine Neck Exam Neck: Present supple and carotid bruit (Sounds are distant); Absent lymphadenopathy, thyromegaly or tenderness *Routine Respiratory Exam Respiratory: Present CTA bilaterally (Anteriorly and posteriorly) *Routine Cardiovascular Exam Cardiovascular: Present RRR *Routine Abdominal Exam Abdominal: Present soft, normoactive bowel sounds, tenderness (Diffuse and mild), distended and guarding *Routine Rectal Exam Rectal:: deferred *Routine Genitalia Exam Genitalia:: deferred *Routine Extremities Exam Extremities: Present full ROM; Absent edema or calf tenderness *Routine Neurological Exam Neurological: Present alert, oriented X3, moving all extremities, normal tone and normal speech; Absent pronator drift, altered mental status or tremors Allergy History Allergy History Drugs: Penicillin Meds Home Medications and Allergies Home Medications ?Medication ?Instructions ?Recorded ?Confirmed ?Type atorvastatin 80 mg tablet 80 mg PO HS 09/10/17 09/23/24 History apixaban 5 mg tablet (Eliquis) 5 mg PO BID 01/29/18 09/23/24 History gabapentin 300 mg capsule 300 mg PO BID 01/20/20 09/23/24 History fluticasone fur. 100 mcg-umeclid 1 puff inhalation DAILY 05/15/20 09/23/24 History 62.5 mcg-vilant 25 mcg inhalat.powder metformin 500 mg tablet,extended 1,000 mg PO DAILY 11/29/20 09/23/24 History release 24 hr famotidine 40 mg tablet 40 mg PO HS 05/07/23 09/23/24 History ferrous sulfate 325 mg (65 mg 325 mg PO DAILY 05/07/23 09/23/24 History iron) tablet (FeroSul) lisinopril 5 mg tablet 5 mg PO DAILY 08/09/23 09/23/24 History omeprazole 20 mg capsule,delayed 20 mg PO DAILY 11/08/23 09/23/24 History release clopidogrel 75 mg tablet 75 mg PO DAILY 02/04/24 09/23/24 History nitroglycerin 0.4 mg sublingual 0.4 mg sublingual Q5MINP PRN chest 02/05/24 09/23/24 History tablet pain finasteride 5 mg tablet (Proscar) 5 mg PO DAILY #90 tabs 02/27/24 09/23/24 Rx amlodipine 5 mg tablet 5 mg PO DAILY 03/25/24 09/23/24 History carvedilol 6.25 mg tablet 6.25 mg PO BID 03/25/24 09/23/24 History tamsulosin 0.4 mg capsule 0.8 mg PO HS 07/24/24 09/23/24 History spironolactone 50 mg tablet 50 mg PO DAILY #30 tabs 07/26/24 09/24/24 Rx albuterol sulfate 90 mcg/actuation 2 puff inhalation Q6H PRN copd 09/16/24 09/24/24 History aerosol inhaler empagliflozin 10 mg tablet 10 mg PO DAILY 09/16/24 09/23/24 History (Jardiance) loperamide 2 mg capsule (Imodium 2 mg PO QID PRN loose stool #1 cap 09/24/24 Rx A-D) New Prescriptions to Start Prescriptions: loperamide [Imodium A-D] Arpin,Colby Allergies Allergy/AdvReac Type Severity Reaction Status Date / Time Penicillins Allergy Verified 09/16/24 10:16 Hospital Course Hospital Course Hospital Course: After admission patient had no further neurosymptoms. Facial paresthesias resolved in the emergency room. Son stayed with him throughout the night and assisted him to the bathroom. He states Mr. Kim had no difficulty with ambulation. Patient did state he had 3 diarrhea stools throughout the night. He denied any nausea or vomiting and stated his abdomen is just sore. He had no chest pain or shortness of breath. Laboratory data with normal blood chemistries, stable CBC and renal insufficiency. Troponin I's were negative x 3. Patient unable to have MRI due to pacemaker. With resolved symptoms patient was deemed stable to be discharged to home. He was instructed to take Imodium for his diarrhea and continue with cardiac/blood pressure medicine. Follow-up in the office with Dr. Quan on 10/01/2024. Results Data Completed and Pending Labs on day of discharge: Labs from last 24 hours 09/24/24 09/23/24 09/23/24 08:45 22:13 21:19 WBC 7.9 RBC 3.88 L Hgb 11.2 L Hct 36.7 L MCV 94.6 H MCH 28.9 MCHC 30.5 L RDW 16.4 Plt Count 170 MPV 12.2 H Neut % (Auto) 69.9 Lymph % (Auto) 20.2 [place] % (Auto) 7.8 Eos % (Auto) 1.5 Baso % (Auto) 0.3 Neut # (Auto) 5.6 Lymph # (Auto) 1.6 [place] # (Auto) 0.6 Eos # (Auto) 0.1 Baso # (Auto) 0.0 PT INR APTT Sodium 143 Potassium 4.4 Chloride 106 Carbon Dioxide 27 Anion Gap 14.4 BUN 21 H Creatinine 1.60 H Estimated Creat Clear 37 Estimated GFR 41 L Est GFR ( Amer) 50 L Glucose 154 H POC Glucose 186 H Calcium 8.9 Total Bilirubin AST ALT Alkaline Phosphatase Troponin I < 0.01 Total Protein Albumin Globulin Albumin/Globulin Ratio Triglycerides Cholesterol LDL Cholesterol Direct VLDL Cholesterol HDL Cholesterol Cholesterol/HDL Ratio Urine Color Urine Appearance Urine pH Ur Specific [place] Urine Protein Urine Glucose (UA) Urine Ketones Urine Blood Urine Nitrate Urine Bilirubin Urine Urobilinogen Ur Leukocyte Esterase Urine RBC Urine WBC Ur Squamous Epith Cells Urine Bacteria Urine Opiates Screen Urine Methadone Screen Ur Barbituates Screen Ur Phencyclidine Scrn Ur Amphetamines Screen U Benzodiazepines Scrn Urine Cocaine Screen U Marijuana (THC) Screen Plasma/Serum Alcohol SARS-CoV-2 (PCR) Influenza A Untype (PCR) Influenza Type B (PCR) 09/23/24 09/23/24 09/23/24 18:27 16:35 15:59 WBC RBC Hgb Hct MCV MCH MCHC RDW Plt Count MPV Neut % (Auto) Lymph % (Auto) [place] % (Auto) Eos % (Auto) Baso % (Auto) Neut # (Auto) Lymph # (Auto) [place] # (Auto) Eos # (Auto) Baso # (Auto) PT INR APTT Sodium Potassium Chloride Carbon Dioxide Anion Gap BUN Creatinine Estimated Creat Clear Estimated GFR Est GFR ( Amer) Glucose POC Glucose Calcium Total Bilirubin AST ALT Alkaline Phosphatase Troponin I < 0.01 Total Protein Albumin Globulin Albumin/Globulin Ratio Triglycerides Cholesterol LDL Cholesterol Direct VLDL Cholesterol HDL Cholesterol Cholesterol/HDL Ratio Urine Color Yellow Urine Appearance Clear Urine pH 7.0 Ur Specific [place] 1.010 Urine Protein Negative Urine Glucose (UA) 3+ Urine Ketones Negative Urine Blood Negative Urine Nitrate Negative Urine Bilirubin Negative Urine Urobilinogen 0.2 Ur Leukocyte Esterase Trace Urine RBC None Urine WBC 5-10 Ur Squamous Epith Cells Occasional Urine Bacteria Trace Urine Opiates Screen Negative Urine Methadone Screen Negative Ur Barbituates Screen Negative Ur Phencyclidine Scrn Negative Ur Amphetamines Screen Negative U Benzodiazepines Scrn Negative Urine Cocaine Screen Negative U Marijuana (THC) Screen Negative Plasma/Serum Alcohol SARS-CoV-2 (PCR) Not detected Influenza A Untype (PCR) Not detected Influenza Type B (PCR) Not detected 09/23/24 15:12 WBC 7.6 RBC 3.80 L Hgb 11.0 L Hct 35.6 L MCV 93.7 MCH 28.9 MCHC 30.9 L RDW 16.0 Plt Count 189 MPV 12.9 H Neut % (Auto) 62.2 Lymph % (Auto) 25.7 [place] % (Auto) 9.7 H Eos % (Auto) 1.7 Baso % (Auto) 0.4 Neut # (Auto) 4.7 Lymph # (Auto) 1.9 [place] # (Auto) 0.7 Eos # (Auto) 0.1 Baso # (Auto) 0.0 PT 10.5 INR 0.94 APTT 27.6 Sodium 141 Potassium 4.2 Chloride 103 Carbon Dioxide 29 Anion Gap 13.2 BUN 21 H Creatinine 1.40 H Estimated Creat Clear 42 Estimated GFR 48 L Est GFR ( Amer) 58 L Glucose 141 H POC Glucose Calcium 8.8 Total Bilirubin 1.6 H AST 29 ALT 21 Alkaline Phosphatase 97 Troponin I < 0.01 Total Protein 7.1 Albumin 4.4 Globulin 2.7 Albumin/Globulin Ratio 1.6 Triglycerides 290 H Cholesterol 133 L LDL Cholesterol Direct 59.98 L VLDL Cholesterol 58 H HDL Cholesterol 28 L Cholesterol/HDL Ratio 4.8 H Urine Color Urine Appearance Urine pH Ur Specific [place] Urine Protein Urine Glucose (UA) Urine Ketones Urine Blood Urine Nitrate Urine Bilirubin Urine Urobilinogen Ur Leukocyte Esterase Urine RBC Urine WBC Ur Squamous Epith Cells Urine Bacteria Urine Opiates Screen Urine Methadone Screen Ur Barbituates Screen Ur Phencyclidine Scrn Ur Amphetamines Screen U Benzodiazepines Scrn Urine Cocaine Screen U Marijuana (THC) Screen Plasma/Serum Alcohol < 10 SARS-CoV-2 (PCR) Influenza A Untype (PCR) Influenza Type B (PCR) DS: Diagnosis Discharge Diagnosis (1) HTN (hypertension): Status: Chronic Code(s): I10 - Essential (primary) hypertension Qualifiers: Hypertension type: essential hypertension Qualified Code(s): I10 - Essential (primary) hypertension (2) Right facial numbness: Status: Acute Code(s): R20.0 - Anesthesia of skin (3) History of atrial fibrillation: Status: Acute Code(s): Z86.79 - Personal history of other diseases of the circulatory system (4) CAD (coronary artery disease): Status: Chronic Code(s): I25.10 - Atherosclerotic heart disease of [place] coronary artery without angina pectoris Qualifiers: Associated angina: with unspecified form of angina Coronary Disease- Associated Artery/Lesion type: [place] artery [place] vs. 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 (7) COPD (chronic obstructive pulmonary disease): Status: Acute Code(s): J44.9 - Chronic obstructive pulmonary disease, unspecified (8) Presence of cardiac pacemaker: Status: Chronic Code(s): Z95.0 - Presence of cardiac pacemaker (9) DM2 (diabetes mellitus, type 2): Status: Chronic Code(s): E11.9 - Type 2 diabetes mellitus without complications Qualifiers: Diabetes mellitus complication detail: with polyneuropathy Diabetes mellitus complication status: with neurologic complications Diabetes mellitus retirement insulin use: without terminal block 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 use Qualified Code(s): E11.42 - Type 2 diabetes mellitus with diabetic polyneuropathy Discharge Plan Disposition Patient Disposition: Home, Self-Care Condition: Fair Follow up Plan Follow up with: Colby Quan MD [Primary Care Provider] - 10/01/24 10:00 am Prescriptions/Medication Reconciliation: New loperamide [Imodium A-D] 2 mg capsule 2 mg PO QID PRN (Reason: loose stool) Qty: 1 0RF Continued apixaban [Eliquis] 5 mg tablet 5 mg PO BID omeprazole 20 mg capsule,delayed release(DR/EC) 20 mg PO DAILY Patient Comments: TAKE ONE CAPSULE BY MOUTH EVERY DAY 30 minutes BEFORE morning meal carvedilol 6.25 mg tablet 6.25 mg PO BID Rx Instructions: Take with food amlodipine 5 mg tablet 5 mg PO DAILY albuterol sulfate 90 mcg/actuation HFA aerosol inhaler 2 puff inhalation Q6H PRN (Reason: copd) Patient Comments: INHALE 2 PUFFS BY MOUTH EVERY 6 HOURS SHAKE WELL BEFORE USE Jardiance 10 mg tablet 10 mg PO DAILY Patient Comments: TAKE ONE TABLET BY MOUTH EVERY DAY lisinopril 5 mg tablet 5 mg PO DAILY Patient Comments: TAKE ONE TABLET BY MOUTH EVERY DAY finasteride [Proscar] 5 mg tablet 5 mg PO DAILY Qty: 90 3RF metformin 500 MG tablet extended release 24 hr 1,000 mg PO DAILY ferrous sulfate [FeroSul] 325 mg (65 mg iron) tablet 325 mg PO DAILY famotidine 40 mg tablet 40 mg PO HS clopidogrel 75 mg tablet 75 mg PO DAILY nitroglycerin 0.4 mg tablet, sublingual 0.4 mg sublingual Q5MINP PRN (Reason: chest pain) Rx Instructions: do not exceed 3 doses per episode atorvastatin 80 MG tablet 80 mg PO HS gabapentin 300 mg capsule 300 mg PO BID [id number] 1 EACH blister with device 1 puff IH DAILY tamsulosin 0.4 mg capsule 0.8 mg PO HS spironolactone 50 mg tablet 50 mg PO DAILY Qty: 30 0RF Problem Reconciliation Problems Reviewed?: Yes Patient Discharge Instructions ACTIVITY: Continue current activity DIET: continue same diet Patient Instructions: How to Prevent Falls, DI for Numbness/Tingling Print Language: Romanian Providers Primary Care Provider: Colby Quan Admit Provider: Colby Quan Attending Provider: Colby Quan
--- NOTE | 2024-09-24 09:25 | HMH.PHAINT1 ---
Pharmacy Intervention Comments: HOME MEDICATION LIST VERIFIED USING LIST FROM OUTPATIENT PHARMACY AND CARDIOLOGY OFFICE
--- NOTE | 2024-09-24 09:36 | PC.NURSE ---
pt voiced that he wanted to take home medications when he got home.
[2024-09-24 10:24] LABS: Eosinophils % 1 % (0-3); Lymphocytes % 25 % (10-50); Monocytes % 4 % (2-9); Neutrophils % 70 % (42-76); Platelet Estimate Normal; RBC Morphology Normal; Total Cells Counted 100
--- NOTE | 2024-09-25 10:35 | SW/DCPLANNER ---
Spoke with patients daughter on the phone. Patients daughter stated that they are aware of his upcoming appointments. Patients daughter stated that they were able to get his new medicine over the counter. Patients daughter stated that he is doing good. Patients daughter stated that they have no concerns or questions at this time. Roger Barton
== END 2024-09-24 09:34 | disposition home or self-care (01) ==
LOC: ER 18:10 → 2ND 18:32
PROVIDERS: Nurse Practitioner Family; Student in an Organized Health Care Education/Training Program; Admitting Provider Family Medicine; Emergency Provider Emergency Medicine; PCP Family Medicine; Visit Provider Family Medicine
DX: J44.1 Chronic obstructive pulmonary disease with (acute) exacerbation (principal); I25.119 Atherosclerotic heart disease of native coronary artery with unspecified angina pectoris; Z79.01 Long term (current) use 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s; Z95.0 Presence of cardiac pacemaker; E11.42 Type 2 diabetes mellitus with diabetic polyneuropathy; I70.1 Atherosclerosis of renal artery; I50.30 Unspecified diastolic (congestive) heart failure; I11.0 Hypertensive heart disease with heart failure; I48.91 Unspecified atrial fibrillation; Z79.899 Other long term (current) drug therapy; Z79.84 Long term (current) use of oral hypoglycemic drugs; R20.0 Anesthesia of skin
CPT/HCPCS: 70450; 70496; 70498; 80048; 80053; 80061; 80307; 80320; 81001; 82962; 84484; 85007; 85014; 85018; 85025; 85048; 85049; 85610; 85730; 87636; 93005; 99291; G0378; G0480; Q9967

== ENCOUNTER 2024-10-07 13:02 | Outpatient (CLI) | payer MEDICARE, OTHER, SELFPAY ==
--- NOTE | 2024-10-07 13:03 | CT_ITS ---
FINAL REPORT TECHNIQUE: NASCET technique utilized for stenosis evaluation. CLINICAL HISTORY: stroke like symptoms COMPARISON: 09/23/2024 FINDINGS: RIGHT CAROTID: There is approximately 60% stenosis of the proximal right internal carotid artery, stable since the prior CT of 09/23/2024. LEFT CAROTID: There are bulky calcifications in the left carotid bulb and proximal internal carotid artery, producing less than 50% luminal diameter stenosis. VERTEBRALS: The vertebrals are patent and codominant. No significant stenosis is present. Note is made of multilevel left facet hypertrophy in the cervical spine. IMPRESSION: No significant changes noted since the prior CTA of the cervical vessels dated 09/23/2024. Reviewed, Interpreted and Dictated by Florentino Rodrigues MD Transcribed by Adelita Guerra Authenticated and [facility]
--- NOTE | 2024-10-07 13:03 | CT_ITS ---
FINAL REPORT TECHNIQUE: thin section axial CT with and without IV contrast supplemented with multiplanar 3-D reconstruction of the head. This study was performed with techniques to keep radiation doses as low as reasonably achievable, (ALARA)individualized dose reduction techniques using automated exposure control or adjustment of mA and/or kV according to the patient's size were employed. CLINICAL HISTORY: dizziness, stroke like symptoms COMPARISON: 09/23/2024 FINDINGS: HEAD CT: Moderate atrophy is present intracranially. There is encephalomalacia in the posterior left frontal lobe and in the right posterior parietal lobe, stable when compared to the prior exam of 09/23/2024. There is no evidence of hemorrhage, mass effect, or edema. No extra-axial fluid collections are identified. IMPRESSION: Encephalomalacia unchanged since the prior CT. No acute intracranial abnormality identified. CTA: The cranial circulation is compared to the prior CTA of 09/23/2024. There is significant likely greater than 50% stenosis of the cavernous and intracranial portions of the carotid arteries, along with calcified plaque, slightly greater on the right than the left. This is unchanged since the prior CT. The intracranial vasculature does not reveal any evidence of aneurysm or other vascular abnormality. IMPRESSION: Intracranial circulation is stable when compared to the prior CTA of 09/23/2024. Reviewed, Interpreted and Dictated by Florentino Rodrigues MD Transcribed by Adelita Guerra Authenticated and [facility]
[2024-10-07] MEDS: SODIUM CHLORIDE 0.9% 10ML SYR (RAD ONLY) 10 ML IV (13:50)
[2024-10-07] MEDS: 0.9 % SODIUM CHLORIDE 50 ML VIAL IV (13:50)
[2024-10-07] MEDS: IOPAMIDOL-370 (76%);100ML BOTTLE 100 ML IV (13:50)
== END 2024-10-07 23:59 | disposition home or self-care (01) ==
LOC: RAD 13:03
PROVIDERS: PCP Family Medicine; Visit Provider Nurse Practitioner
DX: R20.0 Anesthesia of skin (principal); R29.90 Unspecified symptoms and signs involving the nervous system
CPT/HCPCS: 70496; 70498; Q9967

== ENCOUNTER 2025-03-03 13:29 | Outpatient (CLI) | payer MEDICARE, OTHER, SELFPAY ==
--- OUTSIDE RECORDS SUMMARY | 2025-03-03 13:32 | XMS_ITS | Encounter Summary ---
Author Organization [employer] ([place], [place], [place], [place]) Address [address] [place] [address] Care Team Providers Care Basic Sciences Dean Name Role Phone Xochitl Quan MD Primary Care Provider + [phone] Encounter Details Date Type Department Care Team (Late st Contact Info) Description 07/25/[address] 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 If you had special tests, such as EKG???s or X-rays, the interpretation of your tests given to you by the Emergency Department Physician is a preliminary report. Some fractures and illnesses fail to show up on preliminary tests. These will be reviewed again and we will call you if there are any new suggestions. If your symptoms continue notify your physician. After you leave, you should follow the instructions provided. What to do next Follow-Up Appointments Follow Up with XOCHITL QUAN When Within 2 to 3 days Comments Call for follow up appointment Monday. Do not restart the lisinopril and the carvedilol. Where: [facility] [address] [address] [place] [address] [place] [id number]- [place] (1) Allergies penicillin (angioedema, hives) Immunizations This Visit No Immunizations Found Medications What How Much When Instructions Next Dose albuterol (ProAir HFA 90 mcg/ inh inhalation aerosol) 2 Puff(s) Inhalation Every 4 Hours as needed for for wheezing albuterol-ipratropium (DuoNeb 0.5 mg-2.5 mg/ 3 mL inhalation solution) 3 Milliliter(s) Nebulized Inhalation Four Times A Day as needed for for shortness of breath or wheezing aspirin (aspirin 81 mg oral tablet) 1 Tablet(s) Oral Every Day atorvastatin (Lipitor 80 mg oral tablet) 1 Tablet(s) Oral At Bedtime benzonatate (benzonatate 200 mg oral capsule) 1 Capsule(s) Oral Three Times A Day as needed for as needed for cough budesonide (budesonide 0.5 mg/ 2 mL inhalation suspension) 2 Milliliter(s) Nebulized Inhalation Two Times A Day carvedilol (Coreg 25 mg oral tablet) 1 Tablet(s) Oral Two Times A Day dabigatran (Pradaxa 150 mg oral capsule) 1 Capsule(s) Oral Two Times A Day dextromethorphan-promethazine (dextromethorphan-promethazine 15 mg-6.25 mg/ 5 mL oral syrup) 5 Milliliter(s) Oral Every 6 Hours as needed for for cough and congestion esomeprazole (NexIUM 40 mg oral delayed release capsule) 1 Capsule(s) Oral Every Day finasteride (Proscar 5 mg oral tablet) 1 Tablet(s) Oral Every Day furosemide (Lasix 20 mg oral tablet) 1 Tablet(s) Oral Every Day gabapentin (gabapentin 300 mg oral capsule) 1 Capsule(s) Oral Three Times A Day lisinopril (lisinopril 20 mg oral tablet) 1 Tablet(s) Oral Two Times A Day methylPREDNISolone (Medrol Dosepak 4 mg oral tablet) 1 Packet(s) Oral Every Day Duration: 6 Day(s) as directed on package labeling roflumilast (Daliresp 500 mcg oral tablet) 1 Tablet(s) Oral Every Day tamsulosin (tamsulosin 0.4 mg oral capsule) 1 Capsule(s) Oral Every Day The home medications listed are only as accurate as the information you provided. Please continue taking all of your medications prescribed by your Primary Care Provider unless specifically told to change or discontinue the medication. Please direct any questions regarding your home medications to your Primary Care Provider. Take your medications faithfully. Do NOT skip medication. Do NOT stop taking medications without the direction of a physician. Carry a list of your medications with you at all times, and take this medication list with you to your first follow up visit. Report any side effects. Avoid herbal remedies unless discussed with your physician. As part of your treatment plan, your physician may have prescribed a limited course of a controlled substance. This medication may be given to help people with moderate or severe pain or for other medical conditions, but there are risks involved with treatment. Common side effects may include nausea, constipation, drowsiness, sweating, itching, dry mouth, and rash. More serious side effects may include cognitive and motor impairment, like problems with thinking, concentrating, alertness, and movement (e.g. slowed reflexes), and driving and operating heavy machinery can be dangerous. It is important for you to talk to your physician if you have these side effects or questions. These controlled substances can produce physical dependence and be habit-forming if taken for an extended period of time, which means that the body has gotten used to them and may experience withdrawal symptoms if they are abruptly stopped. Withdrawal symptoms can include runny nose, sweating, goose bumps, diarrhea, abdominal cramping, rapid heartbeat, difficulty sleeping, and nervousness. Please dispose of unused and medications per pharmacy guidance. Test Results Laboratory or Other Results This Visit (last charted value for your 07/25/2021 visit) Hematology 07/25/2021 6:47 PM WBC: 9.8 K/uL -- Normal range between ( 3.6 and 9.5 ) RBC: 3.39 Million/uL -- Normal range between ( 4.20 and 5.70 ) Hct: 30.7 % -- Normal range between ( 40.1 and 51.0 ) Hgb: 9.2 g/dL -- Normal range between ( 13.5 and 17.3 ) Platelet Count: 73 K/uL -- Normal range between ( 163 and 369 ) MCH: 27.1 pg -- Normal range between ( 25.6 and 32.2 ) MCHC: 30.0 Gram/dL -- Normal range between ( 32.2 and 36.5 ) MCV: 90.6 fL -- Normal range between ( 79.0 and 94.8 ) Slide Review: No Eos %: 3.7 % -- Normal range between ( 0.0 and 7.0 ) [place] #: 0.72 K/uL -- Normal range between ( 0.16 and 1.00 ) Elliptocytes: 1+ Eos #: 0.36 x10(3)/uL -- Normal range between ( 0.00 and 0.80 ) [place] %: 7.4 % -- Normal range between ( 3.0 and 9.0 ) Baso %: 0.1 % -- Normal range between ( 0.0 and 1.5 ) RBC Morphology: Abnormal Baso #: 0.01 x10(3)/uL -- Normal range between ( 0.00 and 0.20 ) RDW: 18.6 % -- Normal range between ( 11.7 and 14.9 ) Neut %: 76.3 % -- Normal range between ( 34.0 and 71.0 ) Ovalocytes: 1+ Neut #: 7.47 K/uL -- Normal range between ( 1.56 and 6.13 ) Anisocytosis: 1+ Lymph %: 11.9 % -- Normal range between ( 19.3 and 53.1 ) Platelet Ct Estimate: Decreased Mariana Cells: 2+ Lymph #: 1.16 x10(3)/uL -- Normal range between ( 1.00 and 3.90 ) MPV: 12.8 fL -- Normal range between ( 9.4 and 12.4 ) Poikilocytosis: 2+ IG#: 0.06 x10(3)/uL -- Normal range between ( 0.00 and 0.05 ) IG%: 0.60 % -- Normal range between ( 0.00 and 0.60 ) General Chemistry 07/25/2021 6:47 PM Creatinine Level: 1.00 mg/dL -- Normal range between ( 0.70 and 1.30 ) Sodium Level: 142 mmol/L -- Normal range between ( 136 and 146 ) Potassium Level: 3.6 mmol/L -- Normal range between ( 3.5 and 5.1 ) Chloride Level: 110 mmol/L -- Normal range between ( 102 and 112 ) Carbon Dioxide Level: 27 mmol/L -- Normal range between ( 21 and 32 ) Anion Gap: 9 -- Normal range between ( 9 and 20 ) Bun/Creatinine: 26.0 -- Normal range between ( 8.0 and 20.0 ) Calcium Level: 8.3 mg/dL -- Normal range between ( 8.4 and 10.1 ) eGFR : >60 mL/min/1.73m2 eGFR NonAfrican: >60 mL/min/1.73m2 Glucose Level: 104 mg/dL -- Normal range between ( 74 and 106 ) Blood Urea Nitrogen: 26 mg/dL -- Normal range between ( 7 and 22 ) Cardiac Specific Markers 07/25/2021 6:47 PM Troponin I Ultra: 0.025 ng/mL -- Normal range between ( 0.015 and 0.045 ) ProBNP: 2274 pg/mL -- Normal range between ( 0 and 450 ) Education Materials Hypotension As your heart beats, it forces blood through your body. Hypotension, commonly called low blood pressure, is when the force of blood pumping through your arteries is too weak. Arteries are blood vessels that carry blood from the heart throughout the body. Depending on the cause and severity, hypotension may be harmless (benign) or may cause serious problems (be critical). When blood pressure is too low, you may not get enough blood to your brain or to the rest of your organs. This can cause weakness, light-headedness, rapid heartbeat, and fainting. What are the causes? This condition may be caused by: ??? Blood loss. ??? Loss of body fluids (dehydration). ??? Heart problems. ??? Hormone (endocrine) problems. ??? . ??? Severe infection. ??? Lack of certain nutrients. ??? Severe allergic reactions (anaphylaxis). ??? Certain medicines, such as blood pressure medicine or medicines that make the body lose excess fluids (diuretics). Sometimes, hypotension may be caused by not taking medicine as directed, such as taking too much of a certain medicine. What increases the risk? The following factors may make you more likely to develop this condition: ??? Age. Risk increases as you get older. ??? Conditions that affect the heart or the central nervous system. ??? Taking certain medicines, such as blood pressure medicine or diuretics. ??? Being . What are the signs or symptoms? Common symptoms of this condition include: ??? Weakness. ??? Light-headedness. ??? Dizziness. ??? Blurred vision. ??? Fatigue. ??? Rapid heartbeat. ??? Fainting, in severe cases. How is this diagnosed? This condition is diagnosed based on: ??? Your medical history. ??? Your symptoms. ??? Your blood pressure measurement. Your health care provider will check your blood pressure when you are: ? Lying down. ? Sitting. ? Standing. A blood pressure reading is recorded as two numbers, such as 120 over 80 (or 120/80). The first ( top ) number is called the systolic pressure. It is a measure of the pressure in your arteries as your heart beats. The second ( bottom ) number is called the diastolic pressure. It is a measure of the pressure in your arteries when your heart relaxes between beats. Blood pressure is measured in a unit called mm Hg. Healthy blood pressure for most adults is 120/80. If your blood pressure is below 90/60, you may be diagnosed with hypotension. Other information or tests that may be used to diagnose hypotension include: ??? Your other vital signs, such as your heart rate and temperature. ??? Blood tests. ??? Tilt table test. For this test, you will be safely secured to a table that moves you from a lying position to an upright position. Your heart rhythm and blood pressure will be monitored during the test. How is this treated? Treatment for this condition may include: ??? Changing your diet. This may involve eating more salt (sodium) or drinking more water. ??? Taking medicines to raise your blood pressure. ??? Changing the dosage of certain medicines you are taking that might be lowering your blood pressure. ??? Wearing compression stockings. These stockings help to prevent blood clots and reduce swelling in your legs. In some cases, you may need to go to the hospital for: ??? Fluid replacement. This means you will receive fluids through an IV. ??? Blood replacement. This means you will receive donated blood through an IV (transfusion). ??? Treating an infection or heart problems, if this applies. ??? Monitoring. You may need to be monitored while medicines that you are taking wear off. Follow these instructions at home: Eating and drinking ??? Drink enough fluid to keep your urine pale yellow. ??? Eat a healthy diet, and follow instructions from your health care provider about eating or drinking restrictions. A healthy diet includes: ? Fresh fruits and vegetables. ? Whole grains. ? Lean meats. ? Low-fat dairy products. ??? Eat extra salt only as directed. Do not add extra salt to your diet unless your health care provider told you to do that. ??? Eat frequent, small meals. ??? Avoid standing up suddenly after eating. Medicines ??? Take [id number] and prescription medicines only as told by your health care provider. ? Follow instructions from your health care provider about changing the dosage of your current medicines, if this applies. ? Do not stop or adjust any of your medicines on your own. General instructions ??? Wear compression stockings as told by your health care provider. ??? Get up slowly from lying down or sitting positions. This gives your blood pressure a chance to adjust. ??? Avoid hot showers and excessive heat as directed by your health care provider. ??? Return to your normal activities as told by your health care provider. Ask your health care provider what activities are safe for you. ??? Do not use any products that contain nicotine or tobacco, such as cigarettes, e-cigarettes, and chewing tobacco. If you need help quitting, ask your health care provider. ??? Keep all follow-up visits as told by your health care provider. This is important. Contact a health care provider if you: ??? Vomit. ??? Have diarrhea. ??? Have a fever for more than 2???3 days. ??? Feel more thirsty than usual. ??? Feel weak and tired. Get help right away if you: ??? Have chest pain. ??? Have a fast or irregular heartbeat. ??? Develop numbness in any part of your body. ??? Cannot move your arms or your legs. ??? Have trouble speaking. ??? Become sweaty or feel light-headed. ??? Faint. ??? Feel short of breath. ??? Have trouble staying awake. ??? Feel confused. Summary ??? Hypotension is when the force of blood pumping through your arteries is too weak. ??? Hypotension may be harmless (benign) or may cause serious problems (be critical). ??? Treatment for this condition may include changing your diet, changing your medicines, and wearing compression stockings. ??? In some cases, you may need to go to the hospital for fluid or blood replacement. This information is not intended to replace advice given to you by your health care provider. Make sure you discuss any questions you have with your health care provider. Document Revised: 01/10/2019 Document Reviewed: 01/10/2019 [employer] Patient Education ?? 2020 [employer]. Emergency Awareness and Preventative Care STROKE is an EMERGENCY Every Minute Counts Act FAST and Check for these signs: FACE Does the face look uneven? ARM Does one arm drift down? SPEECH Does their speech sound strange? TIME Call at any sign of stroke Stroke Risk Factors Atrial Fibrillation (irregular heartbeat) Diabetes Family history of stroke Heart Disease Heavy alcohol use High Blood Pressure High Cholesterol Physical inactivity and obesity Smoking Cigarette Smoking The facts are clear, cigarette smoking will shorten your life. Smoking can cause many illnesses along the way. As a healthcare provider, we recommend that you stop smoking. Assistance with quitting is available by contacting 1-460-IKKP-NOW. This is a free resource providing counseling, support, and referral. Or you may contact your personal physician. National Suicide Prevention Lifeline: The National Suicide Prevention Lifeline is a national network of local crisis centers that provides free and confidential emotional support to people in suicidal crisis or emotional distress 24 hours a day, 7 days a week. Don't Wait! Stop a Heart Attack Before it Starts What is a heart attack? A heart attack is damage or to a part of the heart from severely decreased or lack of blood flow to the heart. Over time, arteries can become narrow from the buildup of fat and cholesterol, which is called plaque. The plaque can rupture causing a blood clot to form. When the blood clot forms, the artery can become severely narrowed or completely blocked, causing a heart attack. Heart attack is the leading cause of in the [place]. 85% of muscle damage occurs within the first 2 hours. Delay in the recognition of heart attack symptoms increases the chances of . Know the early symptoms of a heart attack: Nausea Feeling of fullness in chest Jaw Pain Pain that travels down one or both arms Fatigue/being tired Anxiety Back Pain Chest pressure, squeezing, or discomfort Shortness of breath Sweating, or a cold sweat Feeling of impending doom There are unusual signs of a heart attack, too! Women, the elderly, and diabetics may present with atypical symptoms: Fainting/dizziness Weakness Confusion Risk Factors for a Heart Attack Some heart disease risk factors, such as age and family history, cannot be changed. Others, like smoking and lack of exercise, can be changed. Smoking High Cholesterol High Blood Pressure Family History Obesity Age Gender (Males are at higher risk) Lack of Exercise Diabetes Diet Stress Excessive Alcohol Intake If you or someone you know is experiencing the signs and symptoms of a heart attack, DON???T DELAY. Call immediately and seek help. If someone collapses, perform CPR! Do not attempt to drive if you are having symptoms of heart attack. Hands-Only CPR Why Hands-Only CPR? Hands-Only CPR has been shown to be as effective as conventional CPR for cardiac arrests that occur outside of a hospital. Survival depends on immediately receiving CPR from someone nearby. How do you perform Hands-Only CPR? There are two easy steps: Call if you see a teen or adult collapse Push hard and fast in the center of the chest at a beat of 100 beats per minute. Save a life! 4 WAYS TO GET AHEAD OF SEPSIS SEPSIS is a MEDICAL EMERGENCY. Time matters! Infections put you and your family at risk for a life-threatening condition called sepsis. Sepsis is the body's extreme response to an infection. It is life-threatening, and without timely treatment, sepsis can rapidly lead to tissue damage, organ failure, and . Sepsis happens when an infection you already have-in your skin, lungs, urinary tract or somewhere else-triggers a chain reaction throughout your body. 1 PREVENT INFECTIONS Take good care of chronic conditions. Talk to your doctor about getting the recommended vaccines. 2 PRACTICE GOOD HYGIENE Wash your hands frequently. Keep cuts or open sores clean and covered until they are healed. 3 KNOW THE SYMPTOMS Confusion or disorientation Shortness of breath High heart rate Fever, shivering, or feeling very cold Extreme pain or discomfort Clammy or sweaty skin 4 ACT FAST Get medical care IMMEDIATELY if you suspect sepsis or if you have an infection that is not getting better or is getting worse. To learn more about sepsis and how to prevent infections, visit www.cdc.gov/sepsis. The examination and treatment you have received in the Emergency Department has been done to provide an appropriate evaluation and stabilizing treatment on an emergency basis only. Given the limited resources, it is not meant to be a substitute for complete medical care. The follow-up doctor you named will receive a copy of your records and all test reports. IT IS IMPORTANT THAT YOU SCHEDULE A FOLLOW-UP APPOINTMENT AND ARE RE-EVALUATED. You should report any new complaints, symptoms, or remaining problems at that time. IT IS IMPOSSIBLE FOR THE EMERGENCY DEPARTMENT TO RECOGNIZE AND TREAT ALL ELEMENTS OF INJURY OR ILLNESS IN A SINGLE VISIT. If you have been referred to a specialist physician, it means that we believe you may have a condition that requires the expertise of a specialist. These physicians work in partnership with the hospital and have agreed to see referred patients in their office for further evaluation. KEEP IN MIND THAT THE SPECIALIST HAS HIS/HER OWN OFFICE POLICIES WHICH MAY REQUIRE PROPER INSURANCE OR PAYMENT UP FRONT BEFORE THE SPECIALIST WILL SEE YOU. It is your responsibility to call the specialist physician to make an appointment. We do not have the ability to refer patients to specialists/physicians that work with specific insurance companies. Please be advised that all financial charges or billing practices are determined by that practice, not the hospital. If your insurance company requires that you see a specialist from their approved list, it is your responsibility to contact your insurance company to make those arrangements. It is also your responsibility to follow any other requirements of your insurance company necessary to obtain coverage for claims submitted. We will bill your insurance; however, you are responsible today for any co-pay amounts. You will receive a separate bill for any services you may have received including: emergency, radiology, or pathology physicians. Patient Name:DAYSI KIM I have received this information and was given the opportunity to ask questions. Patient/Turbine Room Attendant Name: Patient/Turbine Room Attendant Signature: Relationship to Patient: Clinician/Hospital Turbine Room Attendant Signature: Please Provide a Telephone Number Where You Can Be Reached: Is it Permissible To Leave a Message? Date: Electronically signed by Tonja [facility] Conversion Marine Chronometer Assembler Cerner at 11/17/2022 9:48 AM CDT documented in this encounter Plan of Treatment Not on file documented as of this encounter Visit Diagnoses Not on filedocumented in this encounter Care Teams Basic Sciences Dean Relationship Specialty Start Date End Date Xochitl Quan MD [address] [place] [id number] PCP - General Family Medicine 05/09/23 documented as of this encounter
--- OUTSIDE RECORDS SUMMARY | 2025-03-03 13:32 | XMS_ITS | Encounter Summary ---
Author Organization [employer] ([place], [place], [place], [place]) Address [address] [place] [address] Care Team Providers Care Rrts Name Role Phone Xochitl Quan MD Primary Care Provider + [phone] Encounter Details Date Type Department Care Team (Late st Contact Info) Description 07/25/2021 Transcribed Document [facility] [place] Family [place] [address] ProviderJames MD [address] [place] [address] [id number] Social History Tobacco Use Types Packs/Day Years Used Date Smoking Tobacco: Never Assessed Sex and Gender Information Value Date Recorded Sex Assigned at Not on file Legal Sex Male 1:17 PM CDT Gender Identity Not on file Sexual Orientation Not on file documented as of this encounter Miscellaneous Notes * Cerner Conversion Note - James Brody MD - 07/25/2021 6:43 PM ARCHITECTURE DRAFTER Patient: DAYSI KIM Age: 80 years Sex: Male : 1940 Associated Diagnoses: Hypotension Author: LYUBOV AMATO MD-EMR Basic Information Additional information: Chief Complaint from Nursing Triage Note : Chief Complaint 07/25/2021 16:12 EST Chief Complaint Pt c/o low BP, Daughter has written log of BP's in triage; BP 99/47; Hx: Cardiac stents, pacemaker . History of Present Illness The patient presents with hypotension. The onset was 4 days ago. The patient presents with a complaint of hypotension for the last 3 to 4 days. His checks his blood pressure regularly and his blood pressure has remained low for the last 3 to 4 days (~90s/60s). He talked to his primary care doctor and told his to stop his lisinopril and carvedilol 3 days ago. His blood pressure has not rebounded. The patient just complains of some mild fatigue. He had Covid 3 weeks ago and his states he is not eating and drinking normally. He still feels very fatigued most days. He had chest pain for approximately 5 minutes this morning. The patient states he was at rest and developed sharp central chest pain but has not had a recurrence of this pain since this morning. He also denies shortness of breath. . Review of Systems Constitutional symptoms: Fatigue, no fever, no chills. Skin symptoms: No rash, Eye symptoms: Vision unchanged. ENMT symptoms: No sore throat, no nasal congestion. Respiratory symptoms: No shortness of breath, no cough. Cardiovascular symptoms: Chest pain, no palpitations, no tachycardia. Gastrointestinal symptoms: No abdominal pain, no nausea, no vomiting, no diarrhea. Genitourinary symptoms: No dysuria, Musculoskeletal symptoms: No Muscle pain, Neurologic symptoms: No headache, no dizziness. Health Status Allergies: Allergic Reactions (Selected) Severity Not Documented Penicillin- Hives and angioedema.. Medications: (Selected) Prescriptions Prescribed Daliresp 500 mcg oral tablet: 1 Tab, Oral, Daily, 30 Tab, 0 Refill(s) Medrol Dosepak 4 mg oral tablet: 1 Packet, Oral, Daily, for 6 Day(s), as directed on package labeling, 21 Tab, 0 Refill(s) Documented Medications Documented Coreg 25 mg oral tablet: 1 Tab, Oral, BID, 60 Tab, 0 Refill(s) DuoNeb 0.5 mg-2.5 mg/3 mL inhalation solution: 3 mL, Nebulized Inhalation, QID, PRN: for shortness of breath or wheezing, 0 Refill(s) Lasix 20 mg oral tablet: 1 Tab, Oral, Daily, 30 Tab, 0 Refill(s) Lipitor 80 mg oral tablet: 1 Tab, Oral, At Bedtime, 0 Refill(s) NexIUM 40 mg oral delayed release capsule: 1 Cap, Oral, Daily, 0 Refill(s) Pradaxa 150 mg oral capsule: 1 Cap, Oral, BID, 60 Cap, 0 Refill(s) ProAir HFA 90 mcg/inh inhalation aerosol: 2 Puff, Inhalation, Q4H, PRN: for wheezing, 0 Refill(s) Proscar 5 mg oral tablet: 1 Tab, Oral, Daily, 0 Refill(s) aspirin 81 mg oral tablet: 1 Tab, Oral, Daily, 30 Tab, 0 Refill(s) benzonatate 200 mg oral capsule: 1 Cap, Oral, TID, PRN: as needed for cough, 30 Cap, 0 Refill(s) budesonide 0.5 mg/2 mL inhalation suspension: 2 mL, Nebulized Inhalation, BID, 0 Refill(s) dextromethorphan-promethazine 15 mg-6.25 mg/5 mL oral syrup: 5 mL, Oral, Q6H, PRN: for cough and congestion, 0 Refill(s) gabapentin 300 mg oral capsule: 1 Cap, Oral, TID, 90 Cap, 0 Refill(s) lisinopril 20 mg oral tablet: 1 Tab, Oral, BID, 0 Refill(s) tamsulosin 0.4 mg oral capsule: 1 Cap, Oral, Daily, 30 Cap. Past Medical/ Family/ Social History Surgical history: Cholecystectomy ([id number]). Stent in kidney (not sure which one). Cardiac cath x 2 with 1 heart stent placed. Left Carotid Thromboendarterectomy. left and right common iliac stenting. L external iliac stenting. cataract bilateral.. Family history: No family history items have been selected or recorded.. Social history: Social & Psychosocial Habits Alcohol 09/01/2014 Alcohol Use History, Social Habits No Date/Time of Last Drink a beer every 4 or 5 months Alcohol Use in Last Twelve Months Yes Comment: Occasional beer. Once every month. - 03/27/2013 22:53 - ERIN LEPE RN; Once in a great while, maybe once a month if that - 11/19/2013 23:08 - Jennifer Rayo Nurse - Other Employment/School 11/19/2013 Status: Retired Hazardous equipment operation: No Home/Environment 07/04/2014 Lives with: Children Living situation: Home/Independent Home equipment: Walker/Cane Nutrition/Health 09/01/2014 Type of diet: Regular Caffeine intake amount: coffee (2 cup/day) Substance Abuse 03/27/2013 Recreational Drug Use History No Recreational Drug Use Last 12 Months No Tobacco 09/01/2014 Tobacco Use Within Last Twelve Months No Smoking Status Former smoker Years of Tobacco Use 50 Packs/Tins Daily 1.5 Used Tobacco, but Quit Yes Month Tobacco Last Used quit in 2003 or 2004. Second Hand Smoke Exposure Yes 02/14/2016 Smoking Status Former smoker Smoking Frequency Within Last 30 Days None Years of Tobacco Use 49 , Reviewed as documented in chart. Problem list: Active Problems (11) Atrial fibrillation CAD s/p SC stent CHF - Congestive heart failure CKD (chronic kidney disease), stage III COPD CVA (cerebrovascular accident) Disorder of prostate (BPH) GERD (gastroesophageal reflux disease) High cholesterol PAD (peripheral artery disease) Peripheral neuropathy . Physical Examination Vital Signs Vital Signs/Vital Measures 07/25/2021 17:05 EST Oxygen Therapy Mode Nasal cannula 07/25/2021 16:30 EST Systolic Blood Pressure 116 mmHg Diastolic Blood Pressure 56 mmHg LOW Mean Arterial Pressure (MAP)-BMDI 85 Heart Rate Monitored 66 bpm Oxygen Saturation 16 % LOW Oxygen Flow Rate 2 Liter/Min 07/25/2021 16:12 EST Systolic Blood Pressure 99 mmHg Diastolic Blood Pressure 67 mmHg Temperature Source Oral Temperature Mode Fahrenheit Temperature, Fahrenheit 98.9 Deg F Clinical Temperature, C 37.2 Deg C Peripheral Pulse Rate 67 bpm Respiratory Rate 21 Breaths/Min HI Oxygen Saturation 97 % . General: Alert, no acute distress. Skin: Warm, dry. Head: Normocephalic, atraumatic. Eye: Extraocular movements are intact. Ears, nose, mouth and throat: Oral mucosa moist. Cardiovascular: Regular rate and rhythm, No edema. Respiratory: Lungs are clear to auscultation, breath sounds are equal. Gastrointestinal: Soft, Nontender. Neurological: Alert and oriented to person, place, time, and situation, No focal neurological deficit observed. Psychiatric: Cooperative. Medical Decision Making Results review: Lab results : Lab Results 07/25/2021 18:47 EST Sodium Level 142 mmol/L Potassium Level 3.6 mmol/L Chloride Level 110 mmol/L Carbon Dioxide Level 27 mmol/L Anion Gap 9 Glucose Level 104 mg/dL Blood Urea Nitrogen 26 mg/dL HI Creatinine Level 1.00 mg/dL eGFR >60 mL/min/1.73m2 eGFR NonAfrican >60 mL/min/1.73m2 Bun/Creatinine 26.0 HI Calcium Level 8.3 mg/dL LOW Troponin I Ultra 0.025 ng/mL ProBNP 2,274 pg/mL HI WBC 9.8 K/uL HI RBC 3.39 Million/uL LOW Hgb 9.2 g/dL LOW Hct 30.7 % LOW MCV 90.6 fL MCH 27.1 pg MCHC 30.0 Gram/dL LOW Platelet Count 73 K/uL LOW MPV 12.8 fL HI RDW 18.6 % HI Neut % 76.3 % HI Neut # 7.47 K/uL HI Lymph % 11.9 % LOW Lymph # 1.16 x10(3)/uL [place] % 7.4 % [place] # 0.72 K/uL Eos % 3.7 % Eos # 0.36 x10(3)/uL Baso % 0.1 % Baso # 0.01 x10(3)/uL RBC Morphology Abnormal Anisocytosis 1+ Poikilocytosis 2+ Mariana Cells 2+ Elliptocytes 1+ Ovalocytes 1+ Platelet Ct Estimate Decreased Slide Review No IG# 0.06 x10(3)/uL HI IG% 0.60 % . Chest X-Ray: Interpretation by Emergency Physician, Patchy bilateral infiltrates consistent with recent history of Covid pneumonia. Reexamination/ Reevaluation Time: 07/25/2021 19:29:00 . Notes: His BNP is slightly elevated but he takes furosemide daily. He is not in renal failure.. Impression and Plan Diagnosis Hypotension - Discharge, Medical Plan Condition: Stable. Disposition: Discharged Admit/Transfer/Discharge: Discharge (Order): Start: 07/25/2021 19:30 EST, Discharge to: Home . Patient was given the following educational materials: Hypotension. Follow up with: XOCHITL QUAN Within 2 to 3 days Call for follow up appointment Monday. Do not restart the lisinopril and the carvedilol. . Counseled: Patient, Family. documented in this encounter Plan of Treatment Not on file documented as of this encounter Visit Diagnoses Not on filedocumented in this encounter Care Teams Rrts Relationship Specialty Start Date End Date Xochitl Quan MD [address] [facility] [address] [place] [id number] PCP - General Family Medicine 05/09/23 documented as of this encounter
--- OUTSIDE RECORDS SUMMARY | 2025-03-03 13:32 | XMS_ITS | Encounter Summary ---
Author Organization [employer] ([place], [place], [place], [place]) Address [address] [place] [address] Care Team Providers Care Cleaner And Dyer Name Role Phone Colby Quan MD Primary Care Provider + [phone] Encounter Details Date Type Department Care Team (Late st Contact Info) Description 07/25/2021 Transcribed Document [facility] [place] Family Medicine [facility] [place] [address] ProviderJames MD [address] [place] [address] [id number] Social History Tobacco Use Types Packs/Day Years Used Date Smoking Tobacco: Never Assessed Sex and Gender Information Value Date Recorded Sex Assigned at Not on file Legal Sex Male 1:17 PM CDT Gender Identity Not on file Sexual Orientation Not on file documented as of this encounter Miscellaneous Notes * Cerner Conversion Note - Historical ProviderMD - 07/25/2021 7:51 PM NEWS PHOTOGRAPHER ED Discharge Entered On: 07/25/2021 19:52 EST Performed On: 07/25/2021 19:51 EST by Carissa Mak College Archivist Process Patient Disposition : Discharge Personal Belongings With Patient : Yes Patient Education Completed : Yes Teaching Evaluation : Verbalizes understanding IV Discontinued : No Nursing Documentation Completed : Yes Carissa Mak Rn - 07/25/2021 19:51 EST ED Discharge Discharge To : Home with ambulatory/outpatient follow-up Mode Of Departure : Wheelchair Accompanied By : Daughter Discharge Instructions Reviewed With, Opportunity For Questions Given : Patient Prescriptions Given to Patient : No Carissa Mak Rn - 07/25/2021 19:51 EST Electronically signed by [facility] Conversion Stockroom Helper Cerner at 11/17/2022 9:45 AM CDT documented in this encounter Plan of Treatment Not on file documented as of this encounter Visit Diagnoses Not on filedocumented in this encounter Care Teams Cleaner And Dyer Relationship Specialty Start Date End Date Colby Quan MD [address] [facility] [address] [place] [id number] PCP - General Family Medicine 05/09/23 documented as of this encounter
--- OUTSIDE RECORDS SUMMARY | 2025-03-03 13:32 | XMS_ITS | Encounter Summary ---
Author Organization [employer] ([place], [place], [place], [place]) Address [address] [place] [address] Care Team Providers Care Global Engineering Manager Name Role Phone Colby Quan MD Primary Care Provider + [phone] Encounter Details Date Type Department Care Team (Late st Contact Info) Description 07/25/2021 Transcribed Document [facility] [place] Family [place] [facility] [address] ProviderJames MD [facility] [place], [place] [id number] Social History Tobacco Use Types Packs/Day Years Used Date Smoking Tobacco: Never Assessed Sex and Gender Information Value Date Recorded Sex Assigned at Not on file Legal Sex Male 1:17 PM CDT Gender Identity Not on file Sexual Orientation Not on file documented as of this encounter Miscellaneous Notes * Cerner Conversion Note - Historical ProviderMD - 07/25/2021 4:04 PM ECONOMIC DEVELOPMENT COORDINATOR ED Assessment Entered On: 07/25/2021 17:07 EST Performed On: 07/25/2021 17:05 EST by TAMMI DELCID RN ED Quick Look Assessment Level of Consciousness : Alert, Awake Affect/Behavior : Appropriate, Calm Orientation : Oriented x 4 Skin Temperature : Warm Skin Description : Normal for ethnicity TAMMI DELCID RN - 07/25/2021 17:05 EST ED General-Functional Assess Information Obtained From : Patient Preferred Communication Mode : Verbal Communication Barrier : None Primary Language : Haitian Any Spiritual/Cultural Needs or Requests : No Currently in Unsafe Situation : No TAMMI DELCID RN - 07/25/2021 17:05 EST Social Habits Smoking Status : 10 or more cigarettes (1/2 pack or more)/day in last 30 days Smokeless Tobacco Status : Never Desires Tobacco Cessation Medication : No Reason for No Tobacco Cessation Medication : ED/procedural patient only Desires Tobacco Cessation Calc : 1 TAMMI DELCID RN - 07/25/2021 17:05 EST Social History (As Of: 07/25/2021 17:07:52 EST) Tobacco: Use in Last 12 Months: No. Smoking Status Former smoker. Years of Use: 50. Packs/Tins Daily: 1.5. Used Tobacco, but Quit Yes. Last Used: quit in 2003 or 2004.. Second Hand Smoke Exposure: Yes. (Last Updated: 09/01/2014 10:42:05 EST by GISELE LOPEZ RN) Smoking Status Former smoker. None Smoking Frequency Within Last 30 Days. Years of Use: 50. (Last Updated: 02/14/2016 14:41:57 EDT by Windy Chaney RN) Alcohol: Alcohol Use History No. Date/Time of Last Drink: a beer every 4 or 5 months . Use in Last 12 Months: Yes. Comments: 11/19/2013 23:08 - Jennifer Rayo, Nurse - Other: Once in a great while, maybe once a month if that 03/27/2013 22:53 - ERIN LEPE RN: Occasional beer. Once every month. (Last Updated: 09/01/2014 10:42:32 EST by GISELE LOPEZ, MARCELLO) Substance Abuse: Drug Use Hx: No. Use in Last 12 Months: No. (Last Updated: 03/27/2013 22:53:50 EDT by ERIN LEPE, MARCELLO) Nutrition/Health: Regular, Caffeine intake amount: coffee (2 cup/day). (Last Updated: 09/01/2014 10:43:02 EST by GISELE LOPEZ, MARCELLO) Home/Environment: Lives with Children. Living situation: Home/Independent. Home equipment: Walker/Cane. (Last Updated: 07/04/2014 12:04:39 EST by ZHANE BARRAZA, MARCELLO) Employment/School: Retired, Operates hazardous equipment: No. (Last Updated: 11/19/2013 23:12:15 EDT by Jennifer Rayo, Nurse - Other) Cardiovascular ASMT, ED Cardiovascular Assessment WDL : WDL with exceptions (Comment: Hx of [place], stents; Brought in by daughter for hypotension, BP normotensive upon arrival, Pt reported CP to daughter this AM, states he is no longer having CP, NSR on the monitor. No swelling or edema noted. [TAMMI DELCID, MARCELLO - 07/25/2021 17:05 EST] ) TAMMI DELCID RN - 07/25/2021 17:05 EST Respiratory Respiratory Assessment WDL : WDL with exceptions (Comment: Pt c/o SOA, wears 2 L at home. SPO2 90% on RA, 2 L NC applied, Diminished lung sound sin the lower trejo. [TAMMI DELCID RN - 07/25/2021 17:05 EST] ) TAMMI DELCID RN - 07/25/2021 17:05 EST Oxygen Therapy Oxygen Therapy Mode : Nasal cannula Oxygen Flow Rate Titrated : 2 Liter/Min TAMMI DELCID RN - 07/25/2021 17:05 EST Musculoskeletal Musculoskeletal Assessment WDL : WDL with exceptions (Comment: Pt to room via Wheelchair, c/o weakness. Requires x1 assist. [TAMMI DELCID RN - 07/25/2021 17:05 EST] ) TAMMI DELCID RN - 07/25/2021 17:05 EST Neurologic ASMT, ED Neurologic Assessment WDL : WDL TAMMI DELCID RN - 07/25/2021 17:05 EST Electronically signed by [facility] Conversion Yarn Inspector Cerner at 11/17/2022 9:45 AM CDT documented in this encounter Plan of Treatment Not on file documented as of this encounter Visit Diagnoses Not on filedocumented in this encounter Care Teams Global Engineering Manager Relationship Specialty Start Date End Date Colby Quan MD [address] [place] [facility] [address] [place] [phone] PCP - General Family Medicine 05/09/23 documented as of this encounter
--- OUTSIDE RECORDS SUMMARY | 2025-03-03 13:32 | XMS_ITS | Encounter Summary ---
Author Organization [employer] ([place], [place], [place], [place]) Address [address] [place] [address] Care Team Providers Care Adult Literacy Teacher Name Role Phone Colby Quan MD Primary Care Provider + [phone] Encounter Details Date Type Department Care Team (Late st Contact Info) Description 07/26/2021 Transcribed Document [facility] [place] [address] ProviderJames MD [address] [place] [address] Social History Tobacco Use Types Packs/Day Years Used Date Smoking Tobacco: Never Assessed Sex and Gender Information Value Date Recorded Sex Assigned at Not on file Legal Sex Male 1:17 PM CDT Gender Identity Not on file Sexual Orientation Not on file documented as of this encounter Miscellaneous Notes * Cerner Conversion Note - Historical ProviderMD - 07/26/2021 9:05 AM ENGLISH COMPOSITION INSTRUCTOR CR Chest 1 Vw Portable Ordered: 07/25/2021 Modified Reason for Exam: chest pain 07/25/2021 20:34 07/26/2021 09:05 (RADHA WATSON APRN) Reviewed by Provider, No further action required x1 Electronically signed by Tonja [facility] Conversion Feed And Farm Management Adviser Cerner at 11/17/2022 9:46 AM CDT documented in this encounter Plan of Treatment Not on file documented as of this encounter Visit Diagnoses Not on filedocumented in this encounter Care Teams Adult Literacy Teacher Relationship Specialty Start Date End Date Colby Quan MD [address] [facility] [address] [place] [phone] PCP - General Family Medicine 05/09/23 documented as of this encounter
--- OUTSIDE RECORDS SUMMARY | 2025-03-03 13:32 | XMS_ITS | Encounter Summary ---
Author Organization [employer] ([place], [place], [place], [place]) Address [address] [place] [address] Care Team Providers Care Staff Antisubmarine Officer Name Role Phone Colby Quan MD Primary Care Provider + [phone] Encounter Details Date Type Department Care Team (Late st Contact Info) Description 07/25/2021 Transcribed Document [facility] Family Medicine [facility] [place] [address] ProviderJames MD [address] [place], [place] [id number] Social History Tobacco Use Types Packs/Day Years Used Date Smoking Tobacco: Never Assessed Sex and Gender Information Value Date Recorded Sex Assigned at Not on file Legal Sex Male 1:17 PM CDT Gender Identity Not on file Sexual Orientation Not on file documented as of this encounter Miscellaneous Notes * Cerner Conversion Note - Historical ProviderMD - 07/25/2021 4:04 PM READING TUTOR Broset Violence Assessment Entered On: 07/25/2021 17:07 EST Performed On: 07/25/2021 17:07 EST by TAMMI DELCID RN Broset Violence Assessment Broset Violence Checklist of Symptoms : None Broset Violence Symptoms Subtotal : 0 Broset Violence Symptoms Indicator : Low risk (0) TAMMI DELCID RN - 07/25/2021 17:07 EST Electronically signed by Tonja [facility] Conversion Power Wheelchair Mechanic Cerner at 11/17/2022 9:50 AM CDT documented in this encounter Plan of Treatment Not on file documented as of this encounter Visit Diagnoses Not on filedocumented in this encounter Care Teams Staff Antisubmarine Officer Relationship Specialty Start Date End Date Colby Quan MD [address] [place] [address] [place] [phone] PCP - General Family Medicine 05/09/23 documented as of this encounter
--- OUTSIDE RECORDS SUMMARY | 2025-03-03 13:33 | XMS_ITS | Encounter Summary ---
Author Organization [employer] ([place], [place], [place], [place]) Address [address] [place] [address] Care Team Providers Care Nuclear Control Operator Name Role Phone Colby Quan MD Primary Care Provider [phone] Encounter Details Date Type Department Care Team (Late st Contact Info) Description 07/25/2021 Transcribed Document [facility] [place] [place] Family Medicine [address] [place] [address] ProviderJames MD [address] [place], [place] [id number] Social History Tobacco Use Types Packs/Day Years Used Date Smoking Tobacco: Never Assessed Sex and Gender Information Value Date Recorded Sex Assigned at Not on file Legal Sex Male 1:17 PM CDT Gender Identity Not on file Sexual Orientation Not on file documented as of this encounter Miscellaneous Notes * Cerner Conversion Note - Historical ProviderMD - 07/25/2021 7:30 PM CLINICAL REGISTERED NURSE Electronically signed by Tonja [facility] Conversion Theater Education Teacher Cerner at 11/17/2022 9:40 AM CDT documented in this encounter Plan of Treatment Not on file documented as of this encounter Visit Diagnoses Not on filedocumented in this encounter Care Teams Nuclear Control Operator Relationship Specialty Start Date End Date Colby Quan MD [address] [facility] [address] [place] [phone] PCP - General Family Medicine 05/09/23 documented as of this encounter
--- OUTSIDE RECORDS SUMMARY | 2025-03-03 13:33 | XMS_ITS | Clinical Summary ---
Author Organization [employer] ([place], [place], [place], [place]) Address [address] [place] [address] Care Team Providers Care Refuge Manager Name Role Phone Colby Quan MD Primary Care Provider + [phone] Allergies Active Allergy Reactions Criticality Noted Date Comments Penicillin 05/09/2023 Medications nitrofurantoin, macrocrystal-mo nohydrate, (MACROBID) 100 MG capsule Take 1 capsule (100 mg total) by mouth 2 (two) times daily. 20 capsule 05/12/2023 Active FeroSuL 325 mg (65 mg iron) tablet Take 1 tablet (325 mg total) by mouth 3 (three) times daily. 05/01/2023 Active famotidine (PEPCID) 40 MG tablet Take 1 tablet (40 mg total) by mouth nightly. 05/30/2023 Active clopidogreL (PLAVIX) 75 mg tablet Take 1 tablet (75 mg total) by mouth daily. 05/01/2023 Active Eliquis 5 MG tablet Take 1 tablet (5 mg total) by mouth 2 (two) times daily. 05/30/2023 Active amLODIPine (NORVASC) 2.5 MG tablet Take 1 tablet (2.5 mg total) by mouth daily. 05/30/2023 Active Trelegy Ellipta 100-62.5-25 mcg DsDv Take 1 puff by mouth daily. 05/30/2023 Active lisinopriL (PRINIVIL,ZESTR IL) 20 MG tablet Take 1 tablet (20 mg total) by mouth daily. 04/03/2023 Active atorvastatin (LIPITOR) 80 MG tablet Take 1 tablet (80 mg total) by mouth nightly. 05/01/2023 Active metFORMIN (GLUCOPHAGE-XR) 500 MG 24 hr tablet Take 2 tablets (1,000 mg total) by mouth daily. 05/01/2023 Active gabapentin (NEURONTIN) 300 MG capsule Take 1 capsule (300 mg total) by mouth 2 (two) times daily. 05/30/2023 Active carvediloL (COREG) 12.5 MG tablet Take 1 tablet (12.5 mg total) by mouth 2 (two) times daily. 05/01/2023 Active tamsulosin (FLOMAX) 0.4 mg Cap 24 hr capsule Take 2 capsules (0.8 mg total) by mouth daily. 90 capsule 3 06/05/2023 Active Social History Tobacco Use Types Packs/Day Years Used Date Smoking Tobacco: Former Cigarettes Smokeless Tobacco: Never Tobacco Cessation:Counseling Given: Not Answered Food Insecurity Answer Date Recorded Food run out past 12 months Not on file 07/31 Food did not last past 12 months Not on file 08/18/2023 Employment Answer Date Recorded Help finding and keeping a job Not on file 0 08/18/2023 Family and Community Support Answer Seferino e Recorded Help with Day to Day Activities Not on file 08/18/2023 Feeling Lonely or Isolated Not on file 08/18 Educational Attainment Answer Date Michael rded Speak language other than Macanese at home Not on file 08/18/2023 Want help with school or training Not on file 08/18/2023 Substance Use Answer Date Recorded Used prescription meds for non-medical reasons N ot on file 08/18/2023 Used illegal drugs past 12 months Not on file 08/18/2023 Sex and Gender Information Value Date Recorded Sex Assigned at Not on file Legal Sex Male 1:17 PM CDT Gender Identity Not on file Sexual Orientation Not on file Last Filed Vital Signs Vital Sign Reading Time Taken Comments Blood Pressure 144/73 09/04/2023 1:22 PM EST Pulse 70 06/05/2023 1:07 PM EST Temperature 36.9 C (98.4 F) 05/09/2023 7:56 PM EDT Respiratory Rate 16 05/09/2023 2:13 PM EDT Oxygen Saturation 93% 05/09/2023 7:45 PM EDT Inhaled Oxygen Concentration - - Weight 71.7 kg (158 lb) 09/04/2023 1:22 PM EST Height 162.6 cm (5' 4.02 ) 09/04/2023 1:22 PM ES T Body Mass Index 27.11 09/04/2023 1:22 PM EST Plan of Treatment Health Maintenance Due Date Last Done Comments Depression Screening (12+) 1951 DTAP/TDAP/TD VACCINES (1 - Tdap) 1958 Shingles Vaccine (Zoster) (1 of 2) 1989 Respiratory Syncytial Virus (RSV) Adult or (1 - 1-dose 75+ series) 2014 COVID-19 VACCINE (2 - 2023-2 5 season) 2024 10/08/2020 Falls Risk Screening 07/31/2024 Tobacco Cessation Counseling and Screening (12+) 09/04/2024 09/04/2023 Influenza Vaccine (#1) 2025 , 06/02/2020, 05/05/2016, Additional history exists Pneumococcal 50+ years Completed 07/25/2022, 2012 Insurance MEDICARE PART B ONLY [employer] [place] Advance Directives For more information, please contact: [phone] Documents on File Type Date Recorded Patient Curator Expl anation Power of Assisted Living Assistant 05/10/2023 1:34 PM POA 05/10/23 Care Teams Refuge Manager Relationship Specialty Start Date End Date Colby Quan MD [address] [place] [facility] [address] [place] [id number] PCP - General Family Medicine 05/09/23
--- OUTSIDE RECORDS SUMMARY | 2025-03-03 13:33 | XMS_ITS | Encounter Summary ---
Author Organization Healthcare Address [address] [place] [address] Care Team Providers Care Regional Transfer Liaison Name Role Phone Colby Quan MD Primary Care Provider [phone] Encounter Details Date Type Department Care Team (Late st Contact Info) Description 05/07/2023 Orders Only External Location [address] [place] [address] Wali Acevedo MD [address] [place] [address] Social History Tobacco Use Types Packs/Day Years Used Date Smoking Tobacco: Former Alcohol Use Standard Drinks/Week Comments Yes 0 (1 standard drink = 0.6 oz pur e alcohol) Sex and Gender Information Value Date Recorded Sex Assigned at Not on file Legal Sex Male 7:46 PM EDT Gender Identity Not on file Sexual Orientation Not on file documented as of this encounter Plan of Treatment Not on file documented as of this encounter Procedures Procedure Name Priority Date/Time Associated Diagnosis Comments CT OUTSIDE IMAGES 05/07/2023 11:23 AM EDT documented in this encounter Results * CT OUTSIDE IMAGES (05/07/2023 11:23 AM EDT) Anatomical Region Laterality Modality Computed Tomogra phy 05/07/2023 11:2 3 AM EDT us Wali Acevedo MD IMG CT PROCEDURES Final Resul t documented in this encounter Visit Diagnoses Not on filedocumented in this encounter Care Teams Regional Transfer Liaison Relationship Specialty Start Date End Date Colby Quan MD [address] [place] [address] PCP - General 12/11/20 documented as of this encounter
--- OUTSIDE RECORDS SUMMARY | 2025-03-03 13:33 | XMS_ITS | Encounter Summary ---
Author Organization Healthcare Address [address] [id number] Care Team Providers Care Marshmallow Machine Worker Name Role Phone Colby Quan MD Primary Care Provider [phone] Encounter Details Date Type Department Care Team (Late st Contact Info) Description 02/19/2024 Orders Only External Location [address] [place] [address] Costa Melendez MD [facility] [place] [address] Social History Tobacco Use Types Packs/Day Years [...] Procedure Name Priority Date/Time Associated Diagnosis Comments US OUTSIDE IMAGES 02/19/2024 3:18 PM EDT documented in this encounter Results * US OUTSIDE IMAGES (02/19/2024 3:18 PM EDT) Anatomical Region Laterality Modality Ultrasound 02/19/2024 3:18 PM EDT us Costa Melendez MD IMG US PROCEDURES Final Result documented in this encounter Visit Diagnoses Not on filedocumented in this encounter Care Teams Marshmallow Machine Worker Relationship Specialty Start Date End Date Colby Quan MD [address] [place] [address] PCP - General 12/11/20 documented as of this encounter
--- OUTSIDE RECORDS SUMMARY | 2025-03-03 13:33 | XMS_ITS | Encounter Summary ---
Author Organization [employer] ([place], [place], [place], [place]) Address [address] [place] [address] Care Team Providers Care Lump Inspector Name Role Phone Colby Quan MD Primary Care Provider + [phone] Encounter Details Date Type Department Care Team (Late st Contact Info) Description 07/25/2021 Transcribed Document [facility] [facility] [place] [address] ProviderJames MD [address] [place] [address] [id number] Social History Tobacco Use Types Packs/Day Years Used Date Smoking Tobacco: Never Assessed Sex and Gender Information Value Date Recorded Sex Assigned at Not on file Legal Sex Male 1:17 PM CDT Gender Identity Not on file Sexual Orientation Not on file documented as of this encounter Miscellaneous Notes * Cerner Conversion Note - James ProviderMD - 07/25/2021 4:04 PM TRAUMA THERAPIST ED Triage Entered On: 07/25/2021 16:14 EST Performed On: 07/25/2021 16:12 EST by TAMMI DELCID RN ED Triage Across the Room Chief Complaint : Pt c/o low BP, Daughter has written log of BP's in triage; BP 99/47; Hx: Cardiac stents, pacemaker Triage Date/Time : 07/25/2021 16:12 EST TAMMI DELCID RN - 07/25/2021 16:12 EST DCP GENERIC CODE Tracking Acuity : 3 - Urgent Tracking Group : [facility] ED TAMMI DELCID RN - 07/25/2021 16:12 EST Mode of Arrival : Wheelchair Transported to ED by : Private vehicle To Room Via : Wheelchair Accompanied By : Daughter ED Vital Signs : Document Height & Weight : Document ED Reason for Visit : Document Tetanus Immunization : Less than 5 years TAMMI DELCID RN - 07/25/2021 16:12 EST Infectious Disease History Does patient have symptoms of COVID-19? : No Has the Patient Been Tested for COVID-19 in the last 14 days? : No, Patient stated Does the Patient state known exposure to a COVID-19 positive case in the last 14 days? : No Patient Vaccinated for COVID-19 : Fully vaccinated TAMMI DELCID RN - 07/25/2021 16:12 EST Infectious Disease Risk Screening Grid Cough < 2 wks of unknown origin : NO Cough > 2 weeks : NO Blood in Sputum : NO Fever or self-reported Fever : NO Rash of unknown origin : NO Headache : NO Stiff neck : NO Night Sweats : NO Unexplained Weight Loss : NO Diarrhea (3 episode per day) : NO TAMMI DELCID RN - 07/25/2021 16:12 EST Physical contact outside [place] in the last 30 days : No, Unable to obtain Hospitalized in Foreign Country : No Infectious Disease History : Chicken pox/Shingles, Influenza, Measles INF Disease TB Screening Calc : 0 INF Disease Recent Travel Calc : 0 TAMMI DELCID RN - 07/25/2021 16:12 EST Vital Signs ED Temperature Source : Oral Temperature Mode : Fahrenheit Temperature, Fahrenheit : 98.9 Deg F Clinical Temperature, C : 37.2 Deg C Peripheral Pulse Rate : 67 bpm Respiratory Rate : 21 Breaths/Min (HI) Systolic Blood Pressure : 99 mmHg Diastolic Blood Pressure : 67 mmHg Oxygen Saturation : 97 % TAMMI DELCID RN - 07/25/2021 16:12 EST Diagnosis Control ED (As Of: 07/25/2021 16:14:25 EST) Problems(Active) Atrial fibrillation (SNOMED CT :24051007 ) Name of Problem: Atrial fibrillation ; Recorder: NIRAV COLE RN; Confirmation: Confirmed ; Classification: Medical ; Code: [id number] ; Contributor System: Fengxiafei ; Last Updated: 01/09/2014 19:25 EDT ; Life Cycle Date: 07/05/2013 ; Life Cycle Status: Active ; Vocabulary: SNOMED CT CAD s/p FL stent (SNOMED CT :2306892435 ) Name of Problem: CAD s/p FL stent ; Recorder: CHANG SEVILLA RN; Confirmation: Confirmed ; Classification: Medical ; Code: [id number] ; Contributor System: PowerChart ; Last Updated: 12/10/2016 22:14 EDT ; Life Cycle Date: 08/07/2014 ; Life Cycle Status: Active ; Vocabulary: SNOMED CT CHF - Congestive heart failure (SNOMED CT :861297198 ) Name of Problem: CHF - Congestive heart failure ; Recorder: NIRAV COLE RN; Confirmation: Confirmed ; Classification: Medical ; Code: [id number] ; Contributor System: PowerChart ; Last Updated: 01/14/2014 10:55 EDT ; Life Cycle Date: 07/05/2013 ; Life Cycle Status: Active ; Vocabulary: SNOMED CT CKD (chronic kidney disease), stage III (SNOMED CT :9882905337 ) Name of Problem: CKD (chronic kidney disease), stage III ; Recorder: ALLYSON ZAIDI MD-EMR; Confirmation: Complaint of ; Classification: Medical ; Code: [id number] ; Contributor System: PowerChart ; Last Updated: 12/10/2016 22:14 EDT ; Life Cycle Date: 12/10/2016 ; Life Cycle Status: Active ; Vocabulary: SNOMED CT COPD (SNOMED CT :14003973 ) Name of Problem: COPD ; Recorder: NIRAV COLE RN; Confirmation: Confirmed ; Classification: Medical ; Code: 16547986 ; Contributor System: AccuradioChart ; Last Updated: 01/14/2014 10:36 EDT ; Life Cycle Date: 07/05/2013 ; Life Cycle Status: Active ; Vocabulary: SNOMED CT ; Comments: 12/02/2013 11:05 - DIANNA SHI, RN 2 l o2 at night prn CVA (cerebrovascular accident) (SNOMED CT :418558039 ) Name of Problem: CVA (cerebrovascular accident) ; Recorder: ALLYSON ZAIDI MD-EMR; Confirmation: Complaint of ; Classification: Medical ; Code: 380813013 ; Contributor System: AccuradioChart ; Last Updated: 12/10/2016 22:14 EDT ; Life Cycle Date: 12/10/2016 ; Life Cycle Status: Active ; Vocabulary: SNOMED CT Disorder of prostate (BPH) (SNOMED CT :28294368 ) Name of Problem: Disorder of prostate (BPH) ; Recorder: GISELE LOPEZ RN; Confirmation: Confirmed ; Classification: Medical ; Code: 84367047 ; Contributor System: PowerChart ; Last Updated: 09/01/2014 10:50 EST ; Life Cycle Date: 09/01/2014 ; Life Cycle Status: Active ; Vocabulary: SNOMED CT GERD (gastroesophageal reflux disease) (SNOMED CT :451076171 ) Name of Problem: GERD (gastroesophageal reflux disease) ; Recorder: DIANNA SHI RN; Confirmation: Confirmed ; Classification: Medical ; Code: 161998547 ; Contributor System: PowerChart ; Last Updated: 12/02/2013 10:28 EDT ; Life Cycle Date: 12/02/2013 ; Life Cycle Status: Active ; Vocabulary: SNOMED CT High cholesterol (SNOMED CT :73982144 ) Name of Problem: High cholesterol ; Recorder: GISELE LOPEZ RN; Confirmation: Confirmed ; Classification: Medical ; Code: 63894232 ; Contributor System: PowerChart ; Last Updated: 09/01/2014 10:48 EST ; Life Cycle Date: 09/01/2014 ; Life Cycle Status: Active ; Vocabulary: SNOMED CT PAD (peripheral artery disease) (SNOMED CT :2689729464 ) Name of Problem: PAD (peripheral artery disease) ; Recorder: CHANG SEVILLA RN; Confirmation: Confirmed ; Classification: Medical ; Code: 4863864301 ; Contributor System: PowerChart ; Last Updated: 08/07/2014 17:12 EST ; Life Cycle Date: 08/07/2014 ; Life Cycle Status: Active ; Vocabulary: SNOMED CT Peripheral neuropathy (SNOMED CT :15760468 ) Name of Problem: Peripheral neuropathy ; Recorder: DIANNA SHI RN; Confirmation: Confirmed ; Classification: Medical ; Code: 09040874 ; Contributor System: PowerChart ; Last Updated: 12/02/2013 10:28 EDT ; Life Cycle Date: 12/02/2013 ; Life Cycle Status: Active ; Vocabulary: SNOMED CT Diagnoses(Active) Hypotension Date: 07/25/2021 ; Diagnosis Type: Reason For Visit ; Confirmation: Complaint of ; Clinical Dx: Hypotension ; Classification: Medical ; Clinical Service: Non-Specified ; Code: PNED ; Probability: 0 ; Diagnosis Code: [id number] ED Height and Weight Height Source : Stated Height Entry Format : [place] Height, Feet : 5 ft(Converted to: 152 cm, 60 Inch) Height, Inches : 2 Inch(Converted to: 0 ft 2 Inch, 5.08 cm) Clinical Height : 157.48 cm Weight Source, ED : Critical estimated dosing weight Weight Entry Format : [place] Weight, Pounds : 150 lb Clinical Dosing Weight : 68.18 kg Body Surface Area (BSA) : 1.69 m2 Body Mass Index : 27.5 kg/m2 (HI) [place] Body Weight (IBW) : 53.73 kg TAMMI DELCID RN - 07/25/2021 16:12 EST Electronically signed by [facility], [facility] Conversion Line Analyst Cerner at 11/17/2022 9:28 AM CDT documented in this encounter Plan of Treatment Not on file documented as of this encounter Visit Diagnoses Not on filedocumented in this encounter Care Teams Lump Inspector Relationship Specialty Start Date End Date Colby Quan MD [address] [facility] [address] [place] [id number] PCP - General Family Medicine 05/09/23 documented as of this encounter
--- OUTSIDE RECORDS SUMMARY | 2025-03-03 13:33 | XMS_ITS | Clinical Summary ---
Author Organization [facility] Address [address] [place] [address] Care Team Providers Care Associate Professor Of History Name Role Phone Colby Quan MD Primary Care Provider [phone] Allergies Active Allergy Reactions Criticality Noted Date Comments Penicillins Unknown - Patient st ates they do not know rxn details Low 02/20/2018 Medications finasteride (Proscar) 5 MG tablet Take 1 tablet (5 mg) by mouth 1 (one) time each day. 4 Active FeroSul 325 (65 Fe) MG tablet TAKE ONE TABLET BY MOUTH EVERY DAY FOR supplement Active amLODIPine (Norvasc) 5 MG tablet Take 1 tablet (5 mg) by mouth Daily. Active carvedilol (Coreg) 6.25 MG tablet every 12 (twelve) hours. Active clopidogrel (Plavix) 75 MG tablet Take 1 tablet (75 mg) by mouth 1 (one) time each day. Active Eliquis 5 MG tablet Take 1 tablet (5 mg) by mouth 2 (two) times a day. Active gabapentin (Neurontin) 300 MG capsule TAKE ONE CAPSULE BY MOUTH TWICE DAILY MAY CAUSE DROWSINESS Active lisinopril 5 MG tablet Take 1 tablet (5 mg) by mouth 1 (one) time each day. 4 Active metFORMIN XR (Glucophage-XR) 500 MG 24 hr tablet Take 2 tablets (1,000 mg) by mouth 1 (one) time each day. Active omeprazole (PriLOSEC) [address] capsule TAKE ONE CAPSULE BY MOUTH EVERY DAY 30 minutes BEFORE morning meal 4 Active tamsulosin (Flomax) 0.4 MG 24 hr capsule Take 2 capsules (0.8 mg) by mouth 1 (one) time each day. Active famotidine (Pepcid) 40 MG tablet Take 1 tablet (40 mg) by mouth every night. Active atorvastatin (Lipitor) 80 MG tablet Take 1 tablet (80 mg) by mouth every night. Active Active Problems Problem Noted Date Diagnosed Date Anemia 04/19/2024 A-fib 04/19/2024 Atelectasis of both lungs 04/19/2024 Atypical chest pain 04/19/2024 CAD (coronary artery disease) 04/19/2024 Acute bronchitis 04/19/2024 Common wart 04/19/2024 Closed right fibular fracture 04/19/2024 Respiratory failure with hypoxia 04/19/2024 COPD (chronic obstructive pulmonary disease) COPD exacerbation 04/19/2024 COVID 04/19/2024 Cystitis 04/19/2024 Congestive heart failure 04/19/2024 Diabetic foot 04/19/2024 Dizziness 04/19/2024 DM2 (diabetes mellitus, type 2) 04/19/2024 Dyspnea 04/19/2024 Fall 04/19/2024 Facial contusion 04/19/2024 Epistaxis 04/19/2024 Epigastric pain 04/19/2024 Elevated troponin 04/19/2024 Elevated brain natriuretic peptide (BNP) level 0 04/19/2024 Non compliance with medical treatment 04/19/2024 Left lower lobe pneumonia 04/19/2024 Keratosis 04/19/2024 HLD (hyperlipidemia) 04/19/2024 GERD (gastroesophageal reflux disease) Fever 04/19/2024 Overweight (BMI 25.0-29.9) 04/19/2024 Otitis externa 04/19/2024 Onychodystrophy 04/19/2024 PAD (peripheral artery disease) 04/19/2024 Community acquired pneumonia 04/19/2024 Pneumonia due to COVID-19 virus 04/19/2024 Renal insufficiency 04/19/2024 RHONDA (renal artery stenosis) 04/19/2024 Presence of cardiac pacemaker 04/19/2024 Positive blood cultures 04/19/2024 SIRS (systemic inflammatory response syndrome) 0 04/19/2024 Right shoulder pain 04/19/2024 Respiratory acidosis 04/19/2024 Transient cerebral ischemia 04/19/2024 TIA (transient ischemic attack) 04/19/2024 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 Chronic respiratory failure 05/08/[address] 02/20/2018 Heart disease 02/20/2018 COPD, moderate 07/04/2013 Immunizations Immunization Administration Dates Next Due Influenza, high-dose, quadrivalent 06/02/2020, Influenza, injectable, quadrivalent, preservativ e free 11/01/2017 Influenza, seasonal, injectable 04/26/2013 Influenza, seasonal, injectable, preservative fr ee 09/05/2014,09/03/2014 Pneumococcal 20-yeison Conj Vaccine 07/25/2022 Pneumococcal Polysaccharide PPV23 04/26/2013 Family History Medical History Relation Name Comments Heart attack Brother Liver cancer Father Lung cancer Father Heart attack Mother Migraines Mother Relation Name Status Comments Brother Father Mother Social History Tobacco Use Types Packs/Day Years Used Date Smoking Tobacco: Former Smokeless Tobacco: Never Tobacco Cessation:Counseling Given: Not Answered Alcohol Use Standard Drinks/Week Comments Yes 0 (1 standard drink = 0.6 oz pur e alcohol) PHQ-2 Answer Date Recorded Patient Health Questionnaire-2 Score 0 05/08/2024 Sex and Gender Information Value Date Recorded Sex Assigned at Not on file Legal Sex Male 7:46 PM EDT Gender Identity Not on file Sexual Orientation Not on file Last Filed Vital Signs Vital Sign Reading Time Taken Comments Blood Pressure 150/72 05/08/2024 10:49 AM EDT Pulse 72 05/08/2024 10:49 AM EDT Temperature 36.4 C (97.6 F) 05/08/2024 10:49 AM EDT Respiratory Rate 24 05/08/2018 1:31 PM EDT Oxygen Saturation 99% 05/08/2024 10: 49 AM EDT Inhaled Oxygen Concentration - - Weight 76.1 kg (167 lb 12.3 oz) 024 10:49 AM EDT Height 167.6 cm (5' 6 ) 05/08/2024 10:4 9 AM EDT Body Mass Index 27.08 05/08/2024 10:49 AM EDT Plan of Treatment Health Maintenance Due Date Last Done Comments [facility]-Diabetes: Hemoglobin A1C 1940 [facility]-Medicare Annual Wellness (AWV) 1940 [facility]-/Child/Adol SDOH Screenings 1939 Diabetes: Dental Exam 1949 [facility]- SDOH Screenings 1957 [facility]-Adult SDOH Screenings 1957 [facility]-DTaP,Tdap,and Td Vaccines (1 - Tdap) 1958 [facility]-Zoster Vaccines (1 of 2) 1989 [facility]-RSV Vaccine: 60+ Years or (1 - 1-dose 75+ series) 2014 [id number] Vaccine (2 - season) 2024 10/08/2020 [facility]-Influenza Vaccine (#1) 03/31/202506/02, 11/01/2017, 05/05/2016, Additional history exists [facility]-Depression Screening 05/08/2025 05/08/2024 [facility]-Pneumococcal Vaccine: 50+ Years Completed 07/25/2022, 04/26/2013 [facility]-Obesity Intervention Completed 05/08/2024, 04/01 HPV Vaccines Aged Out No longer eligi ble based on patient's age to complete this topic [facility]-HIB Vaccines Aged Out No longer e ligible based on patient's age to complete this topic [facility]-Hepatitis A Vaccines Aged Out No longer eligible based on patient's age to complete this topic [facility]-IPV Vaccines Aged Out No longer e ligible based on patient's age to complete this topic [facility]-Rotavirus Vaccines Aged Out No lo nger eligible based on patient's age to complete this topic Insurance AETNA [facility] MEDICAID MEDICARE Care Teams Associate Professor Of History Relationship Specialty Start Date End Date Colby Quan MD [address] [place] [address] PCP - General 12/11/20
--- OUTSIDE RECORDS SUMMARY | 2025-03-03 13:33 | XMS_ITS | Referral Summary ---
Author Organization [employer] ([place], [place], [place], [place]) Address [address] [place] [address] Care Team Providers Care Sales Appointment Coordinator Name Role Phone Colby Quan MD Primary Care Provider + [phone] Allergies Active Allergy Reactions Criticality Noted Date [...] Date Michael rded Speak language other than Vietnamese at home Not on file 08/18/2023 Want [...] 09/04/2023 1:22 PM EST Plan of Treatment Not on file Insurance MEDICARE PART B ONLY [place] [id number] AETNA [facility] Advance Directives For more information, please contact: [phone] Documents on File Type Date Recorded Patient Airfield Engineer Officer Expl anation Power of Supervisor Pyrotechnic Loading 05/10/2023 1:34 PM POA 05/10/23 Care Teams Sales Appointment Coordinator Relationship Specialty Start Date End Date Colby Quan MD [address] [facility] [address] [place] [phone] PCP - General Family Medicine 05/09/23
[2025-03-03 14:53] LABS: Anion Gap 14.0 mEq/L (5-15); Blood Urea Nitrogen 14 mg/dl (9-20); Calcium 9.5 mg/dl (8.4-10.2); Carbon Dioxide 24 mmol/L (22.0-30.0); Chloride 107 mmol/L (98-107); Creatinine,Serum 1.50 mg/dl (0.66-1.25); Estimated Glomerular Filt Rate 44 ml/min (>60); GFR (African American) 54 ML/MIN (>60); Glucose 171 mg/dl (74-100); Potassium 4.0 mmoL/L (3.5-5.1); Sodium 141 mmol/L (136-145)
== END 2025-03-03 23:59 | disposition home or self-care (01) ==
PROVIDERS: PCP Family Medicine; Visit Provider Physician Assistant
DX: I25.119 Atherosclerotic heart disease of native coronary artery with unspecified angina pectoris (principal); R09.89 Other specified symptoms and signs involving the circulatory and respiratory systems; I73.9 Peripheral vascular disease, unspecified; I10 Essential (primary) hypertension
CPT/HCPCS: 36415; 80048

== ENCOUNTER 2025-03-20 07:40 | Outpatient (CLI) | payer MEDICARE, OTHER, SELFPAY ==
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
--- OUTSIDE RECORDS SUMMARY | 2025-03-20 07:43 | XMS_ITS | Clinical Summary ---
Author Organization [facility] Address [address] [facility] [address] [place] [address] Phone Care Team Providers Care Director Informatics Name Role Phone Unavailable Unavailable Conditions or Problems No information available. Medications No information available. Medications Administered No information available. Allergies, Adverse Reactions, Alerts No information available. Results No information available. Plan of Care No information available. Procedures No information available. Vital Signs No information available. Immunizations No information available. Advance Directives No information available.
--- OUTSIDE RECORDS SUMMARY | 2025-03-20 07:44 | XMS_ITS | Encounter Summary ---
Author Organization [employer] ([place], [place], [place], [place]) Address [address] [place] [address] Care Team Providers Care Hearing Consultant Name Role Phone Xochitl Quan MD Primary Care Provider + [phone] Encounter Details Date Type Department Care Team (Late st Contact Info) Description 07/25/2021 Transcribed Document [facility] [place] [facility] Family Medicine [facility] [place] [address] ProviderJames MD [address] [place] [address] [id number] Social History Tobacco Use Types Packs/Day Years Used Date Smoking Tobacco: Never Assessed Sex and Gender Information Value Date Recorded Sex Assigned at Not on file Legal Sex Male 1:17 PM CDT Gender Identity Not on file Sexual Orientation Not on file documented as of this encounter Miscellaneous Notes * [employer] Conversion Note - James Brody MD - 07/25/2021 6:43 PM ANTHROPOLOGY FACULTY MEMBER Patient: DAYSI KIM Age: 80 years Sex: [...] Medical/ Family/ Social History Surgical history: Cholecystectomy ([id number]). Stent in kidney (not sure which one). [...] Active Problems (11) Atrial fibrillation CAD s/p DE stent CHF - Congestive heart failure CKD [...] 11.9 % LOW Lymph # 1.16 x10(3)/uL [place] % 7.4 % [place] # 0.72 K/uL Eos % 3.7 % [...] on filedocumented in this encounter Care Teams Hearing Consultant Relationship Specialty Start Date End Date Xochitl Quan MD [address] [facility] [address] [place] [id number] PCP - General Family Medicine 05/09/23 documented as of this encounter
--- OUTSIDE RECORDS SUMMARY | 2025-03-20 07:44 | XMS_ITS | Encounter Summary ---
Author Organization [employer] ([place], [place], [place], [place]) Address [address] [place] [address] Care Team Providers Care Client Portfolio Manager Name Role Phone Colby Quan MD Primary Care Provider + [phone] Encounter Details Date Type Department Care Team (Late st Contact Info) Description 07/25/2021 Transcribed Document [facility] [place] [facility] [place] [address] ProviderJames MD [address] [place], [place] [address] Social History Tobacco Use Types Packs/Day Years Used Date Smoking Tobacco: Never Assessed Sex and Gender Information Value Date Recorded Sex Assigned at Not on file Legal Sex Male 1:17 PM CDT Gender Identity Not on file Sexual Orientation Not on file documented as of this encounter Miscellaneous Notes * [employer]ner Conversion Note - Historical ProviderMD - 07/25/2021 4:04 PM PIT FURNACE OPERATOR Broset Violence Assessment Entered On: 07/25/2021 17:07 EST Performed On: 07/25/2021 17:07 EST by TAMMI DELCID RN Broset Violence Assessment Broset Violence Checklist of Symptoms : None Broset Violence Symptoms Subtotal : 0 Broset Violence Symptoms Indicator : Low risk (0) TAMMI DELCID RN - 07/25/2021 17:07 EST Electronically signed by Tonja [facility] Conversion Backside Grinder Cerner at 11/17/2022 9:50 AM CDT documented in this encounter Plan of Treatment Not on file documented as of this encounter Visit Diagnoses Not on filedocumented in this encounter Care Teams Client Portfolio Manager Relationship Specialty Start Date End Date Colby Quan MD [address] [place] [id number] PCP - General Family Medicine 05/09/23 documented as of this encounter
--- OUTSIDE RECORDS SUMMARY | 2025-03-20 07:44 | XMS_ITS | Encounter Summary ---
Author Organization [employer] ([place], [place], [place], [place]) Address [address] [place] [address] Care Team Providers Care Cash Register Servicer Name Role Phone Xochitl Quan MD Primary Care Provider + [phone] Encounter Details Date Type Department Care Team (Late st Contact Info) Description 07/25/2021 Transcribed Document [facility] [place] Family Medicine Counts include 234 beds at the [facility] [address] ProviderJames MD [address] [place] [id number] Social History Tobacco Use Types Packs/Day Years Used Date Smoking Tobacco: Never Assessed Sex and Gender Information Value Date Recorded Sex Assigned at Not on file Legal Sex Male 1:17 PM CDT Gender Identity Not on file Sexual Orientation Not on file documented as of this encounter Miscellaneous Notes * Cerner Conversion Note - James Brody MD - 07/25/2021 7:32 PM PLACEMENT SPECIAL[place] [address] DAYSI KIM :1940 Visit Time:07/25/2021 [...] restart the lisinopril and the carvedilol. Where: [facility] [address] [place] [address] [place] [address]- [facility] (1) Allergies penicillin (angioedema, hives) Immunizations This [...] range between ( 0.0 and 7.0 ) [place] #: 0.72 K/uL -- Normal range between ( 0.16 and 1.00 ) Elliptocytes: 1+ Eos #: 0.36 x10(3)/uL -- Normal range between ( 0.00 and 0.80 ) [place] %: 7.4 % -- Normal range between [...] and 53.1 ) Platelet Ct Estimate: Decreased [place] Cells: 2+ Lymph #: 1.16 x10(3)/uL -- [...] up suddenly after eating. Medicines ??? Take [id number]-[id number] and prescription medicines only as told by [...] provider. Document Revised: 01/10/2019 Document Reviewed: 01/10/2019 [employer] Patient Education ?? 2020 [employer] Emergency Awareness and Preventative Care STROKE is [...] Assistance with quitting is available by contacting 9-699-DFOM-NOW. This is a free resource providing counseling, [...] was given the opportunity to ask questions. Patient/Metallurgical Engineering Technician Name: Patient/Metallurgical Engineering Technician Signature: Relationship to Patient: Clinician/Hospital Metallurgical Engineering Technician Signature: Please Provide a Telephone Number Where You Can Be Reached: Is it Permissible To Leave a Message? Date: Electronically signed by Tonja [facility] Conversion Needle Loom Operator Helper Cerner at 11/17/2022 9:48 AM CDT documented in this encounter Plan of Treatment Not on file documented as of this encounter Visit Diagnoses Not on filedocumented in this encounter Care Teams Cash Register Servicer Relationship Specialty Start Date End Date Xochitl Quan MD [address] [place] [address] [place] [id number] PCP - General Family Medicine 05/09/23 documented as of this encounter
--- OUTSIDE RECORDS SUMMARY | 2025-03-20 07:44 | XMS_ITS | Encounter Summary ---
Author Organization [employer] ([place], [place], [place], [place]) Address [address] [place] [address] Care Team Providers Care Operations Planner Name Role Phone Colby Quan MD Primary Care Provider + [phone] Encounter Details Date Type Department Care Team (Late st Contact Info) Description 07/26/[address] [facility] [place] Family Medicine [facility] [place] [address] ProviderJames MD [address] [place] [address] Social History Tobacco Use Types Packs/Day Years Used Date Smoking Tobacco: Never Assessed Sex and Gender Information Value Date Recorded Sex Assigned at Not on file Legal Sex Male 1:17 PM CDT Gender Identity Not on file Sexual Orientation Not on file documented as of this encounter Miscellaneous Notes * Cerner Conversion Note - Historical ProviderMD - 07/26/2021 9:05 AM FRUIT GRADER OPERATOR CR Chest 1 Vw Portable Ordered: 07/25/2021 Modified Reason for Exam: chest pain 07/25/2021 20:34 07/26/2021 09:05 (RADHA WATSON APRN) Reviewed by Provider, No further action required x1 Electronically signed by Tonja [facility] Conversion Double End Tenon Operator Cerner at 11/17/2022 9:46 AM CDT documented in this encounter Plan of Treatment Not on file documented as of this encounter Visit Diagnoses Not on filedocumented in this encounter Care Teams Operations Planner Relationship Specialty Start Date End Date Colby Quan MD [address] [facility] [address] [place] [id number] PCP - General Family Medicine 05/09/23 documented as of this encounter
--- OUTSIDE RECORDS SUMMARY | 2025-03-20 07:44 | XMS_ITS | Encounter Summary ---
Author Organization [employer] ([place], [place], [place], [place]) Address [address] [place] [address] Care Team Providers Care Operations Manager/Coordinator Name Role Phone Colby Quan MD Primary Care Provider + [phone] Encounter Details Date Type Department Care Team (Late st Contact Info) Description 07/25/2021 Transcribed Document [facility] [place] Family [place] [address] ProviderJames MD [address] [place] [phone] Social History Tobacco Use Types Packs/Day Years Used Date Smoking Tobacco: Never Assessed Sex and Gender Information Value Date Recorded Sex Assigned at Not on file Legal Sex Male 1:17 PM CDT Gender Identity Not on file Sexual Orientation Not on file documented as of this encounter Miscellaneous Notes * Cerner Conversion Note - Historical ProviderMD - 07/25/2021 7:51 PM FOREST TECHNICIAN ED Discharge Entered On: 07/25/2021 19:52 EST Performed On: 07/25/2021 19:51 EST by Carissa Mak Cardiovascular Invasive Specialist Process Patient Disposition : Discharge Personal Belongings [...] - 07/25/2021 19:51 EST Electronically signed by [facility] Conversion Application Chemist Cerner at 11/17/2022 9:45 AM CDT documented in this encounter Plan of Treatment Not on file documented as of this encounter Visit Diagnoses Not on filedocumented in this encounter Care Teams Operations Manager/Coordinator Relationship Specialty Start Date End Date Colby Quan MD [address] [facility] [address] [place] [phone] PCP - General Family Medicine 05/09/23 documented as of this encounter
--- OUTSIDE RECORDS SUMMARY | 2025-03-20 07:44 | XMS_ITS | Encounter Summary ---
Author Organization [employer] ([place], [place], [place], [place]) Address [address] [place] [address] Care Team Providers Care Dental Laboratory Assistant Name Role Phone Colby Quan MD Primary Care Provider + [phone] Encounter Details Date Type Department Care Team (Late st Contact Info) Description 07/25/2021 Transcribed Document [facility] [place] [facility] [place] [address] ProviderJames MD [facility] [place], [place] [address] Social History Tobacco Use Types Packs/Day Years Used Date Smoking Tobacco: Never Assessed Sex and Gender Information Value Date Recorded Sex Assigned at Not on file Legal Sex Male 1:17 PM CDT Gender Identity Not on file Sexual Orientation Not on file documented as of this encounter Miscellaneous Notes * Cerner Conversion Note - Historical ProviderMD - 07/25/2021 4:04 PM TIN ASSORTER ED Assessment Entered On: 07/25/2021 17:07 EST [...] Communication Barrier : None Primary Language : South Sudanese Any Spiritual/Cultural Needs or Requests : No [...] (Last Updated: 09/01/2014 10:42:32 EST by GISELE LPOEZ, MARCELLO) Substance Abuse: Drug Use Hx: No. [...] : WDL with exceptions (Comment: Hx of [place], stents; Brought in by daughter for hypotension, [...] - 07/25/2021 17:05 EST Electronically signed by [facility] Conversion Pc Tech Cerner at 11/17/2022 9:45 AM CDT documented in this encounter Plan of Treatment Not on file documented as of this encounter Visit Diagnoses Not on filedocumented in this encounter Care Teams Dental Laboratory Assistant Relationship Specialty Start Date End Date Colby Quan MD [address] [place] [facility] [address] [place] [phone] PCP - General Family Medicine 05/09/23 documented as of this encounter
--- OUTSIDE RECORDS SUMMARY | 2025-03-20 07:44 | XMS_ITS | Clinical Summary ---
Author Organization [employer] ([place], [place], [place], [place]) Address [address] [place] [address] Care Team Providers Care Block Out Machine Operator Name Role Phone Colby Quan MD Primary Care Provider + [phone] Allergies Active Allergy Reactions Criticality Noted Date [...] Date Michael rded Speak language other than Cameroonian at home Not on file 08/18/2023 Want [...] 2012 Insurance MEDICARE PART B ONLY [employer] [facility] Advance Directives For more information, please contact: [phone] Documents on File Type Date Recorded Patient Management Specialist Expl anation Power of Customer Experience Analyst 05/10/2023 1:34 PM POA 05/10/23 Care Teams Block Out Machine Operator Relationship Specialty Start Date End Date Colby Quan MD [address] [place] [facility] [address] [place] [id number] PCP - General Family Medicine 05/09/23
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
--- OUTSIDE RECORDS SUMMARY | 2025-03-20 07:45 | XMS_ITS | Encounter Summary ---
Author Organization Healthcare Address [address] [place] [address] Care Team Providers Care Java J2Ee Architect Name Role Phone Colby Quan MD Primary Care Provider [phone] Encounter Details Date Type Department Care Team (Late st Contact Info) Description 05/07/2023 Orders Only External Location [address] [place] [address] Wali Acevedo MD [address] [place] [address] Social History Tobacco Use Types [...] on filedocumented in this encounter Care Teams Java J2Ee Architect Relationship Specialty Start Date End Date Colby Quan MD [address] [place] [address] PCP - General 12/11/20 documented as of this encounter
--- OUTSIDE RECORDS SUMMARY | 2025-03-20 07:45 | XMS_ITS | Referral Summary ---
Author Organization [employer] ([place], [place], [place], [place]) Address [address] [place] [address] Care Team Providers Care Steam Frame Operator Name Role Phone Colby Quan MD Primary Care Provider + [phone] Allergies Active Allergy Reactions Criticality Noted Date [...] Date Michael rded Speak language other than Serbian at home Not on file 08/18/2023 Want [...] on file Insurance MEDICARE PART B ONLY [place] [id number] AETNA [facility] Advance Directives For more information, please contact: [phone] Documents on File Type Date Recorded Patient Genetic Coordinator Expl anation Power of Combiner 05/10/2023 1:34 PM POA 05/10/23 Care Teams Steam Frame Operator Relationship Specialty Start Date End Date Colby Quan MD [address] [facility] [address] [place] [address] PCP - General Family Medicine 05/09/23
--- OUTSIDE RECORDS SUMMARY | 2025-03-20 07:45 | XMS_ITS | Clinical Summary ---
Author Organization [facility] Address [address] [place] [address] Care Team Providers Care Chain Maker Loom Control Name Role Phone Colby Quan MD Primary Care Provider [phone] Allergies Active Allergy Reactions Criticality Noted Date [...] or (1 - 1-dose 75+ series) 2014 [id number] Vaccine (2 - season) 2024 10/08/2020 UKY-Influenza [...] age to complete this topic Insurance AETNA [facility] MEDICAID MEDICARE Care Teams Chain Maker Loom Control Relationship Specialty Start Date End Date Colby Quan MD [address] [place] [address] PCP - General 12/11/20
--- OUTSIDE RECORDS SUMMARY | 2025-03-20 07:45 | XMS_ITS | Encounter Summary ---
Author Organization Healthcare Address [address] [id number] Care Team Providers Care Correction Officer Reformatory Name Role Phone Colby Quan MD Primary Care Provider [phone] Encounter Details Date Type Department Care Team (Late st Contact Info) Description 02/19/2024 Orders Only External Location [address] [place] [address] Costa Melendez MD [facility] [place] [address] Social History Tobacco Use Types Packs/Day Years [...] on filedocumented in this encounter Care Teams Correction Officer Reformatory Relationship Specialty Start Date End Date Colby Quan MD [address] [place] [address] PCP - General 12/11/20 documented as of this encounter
--- OUTSIDE RECORDS SUMMARY | 2025-03-20 07:45 | XMS_ITS | Encounter Summary ---
Author Organization [employer] ([place], [place], [place], [place]) Address [address] [place] [address] Care Team Providers Care Relocation Director Name Role Phone Colby Quan MD Primary Care Provider + [phone] Encounter Details Date Type Department Care Team (Late st Contact Info) Description 07/25/2021 Transcribed Document [facility] [place] Formerly [facility] [place] [address] ProviderJames MD [address] [place] [id number] Social History Tobacco Use Types Packs/Day Years Used Date Smoking Tobacco: Never Assessed Sex and Gender Information Value Date Recorded Sex Assigned at Not on file Legal Sex Male 1:17 PM CDT Gender Identity Not on file Sexual Orientation Not on file documented as of this encounter Miscellaneous Notes * Cerner Conversion Note - James ProviderMD - 07/25/2021 4:04 PM TWISTING FRAME CHANGER ED Triage Entered On: 07/25/2021 16:14 EST [...] : 3 - Urgent Tracking Group : [facility] ED TAMMI DELCID RN - 07/25/2021 16:12 [...] 16:14:25 EST) Problems(Active) Atrial fibrillation (SNOMED CT :08289957 ) Name of Problem: Atrial fibrillation ; Recorder: NIRAV COLE RN; Confirmation: Confirmed ; Classification: Medical ; Code: [id number] ; Contributor System: RipCode ; Last Updated: 01/09/2014 19:25 EDT ; Life Cycle Date: 07/05/2013 ; Life Cycle Status: Active ; Vocabulary: SNOMED CT CAD s/p DE stent (SNOMED CT :1710951767 ) Name of Problem: CAD s/p DE stent ; Recorder: CHANG SEVILLA RN; Confirmation: Confirmed ; Classification: Medical ; Code: [id number] ; Contributor System: PowerChart ; Last Updated: 12/10/2016 22:14 EDT ; Life Cycle Date: 08/07/2014 ; Life Cycle Status: Active ; Vocabulary: SNOMED CT CHF - Congestive heart failure (SNOMED CT :300110615 ) Name of Problem: CHF - Congestive heart failure ; Recorder: NIRAV COLE RN; Confirmation: Confirmed ; Classification: Medical ; Code: [id number] ; Contributor System: PowerChart ; Last Updated: 01/14/2014 10:55 EDT ; Life Cycle Date: 07/05/2013 ; Life Cycle Status: Active ; Vocabulary: SNOMED CT CKD (chronic kidney disease), stage III (SNOMED CT :1619567565 ) Name of Problem: CKD (chronic kidney disease), stage III ; Recorder: ALLYSON ZAIDI MD-EMR; Confirmation: Complaint of ; Classification: Medical ; Code: [id number] ; Contributor System: PowerChart ; Last Updated: 12/10/2016 22:14 EDT ; Life Cycle Date: 12/10/2016 ; Life Cycle Status: Active ; Vocabulary: SNOMED CT COPD (SNOMED CT :28280943 ) Name of Problem: COPD ; Recorder: NIRAV COLE RN; Confirmation: Confirmed ; Classification: Medical ; Code: 35393030 ; Contributor System: SedicidodiciChart ; Last Updated: 01/14/2014 10:36 EDT ; Life Cycle Date: 07/05/2013 ; Life Cycle Status: Active ; Vocabulary: SNOMED CT ; Comments: 12/02/2013 11:05 - IDANNA SHI, RN 2 l o2 at night prn CVA (cerebrovascular accident) (SNOMED CT :419870699 ) Name of Problem: CVA (cerebrovascular accident) ; Recorder: ALLYSON ZAIDI MD-EMR; Confirmation: Complaint of ; Classification: Medical ; Code: 409434103 ; Contributor System: SedicidodiciChart ; Last Updated: 12/10/2016 22:14 EDT ; Life Cycle Date: 12/10/2016 ; Life Cycle Status: Active ; Vocabulary: SNOMED CT Disorder of prostate (BPH) (SNOMED CT :39831071 ) Name of Problem: Disorder of prostate (BPH) ; Recorder: GISELE LOPEZ RN; Confirmation: Confirmed ; Classification: Medical ; Code: 07274980 ; Contributor System: PowerChart ; Last Updated: 09/01/2014 10:50 EST ; Life Cycle Date: 09/01/2014 ; Life Cycle Status: Active ; Vocabulary: SNOMED CT GERD (gastroesophageal reflux disease) (SNOMED CT :333844557 ) Name of Problem: GERD (gastroesophageal reflux disease) ; Recorder: DIANNA SHI RN; Confirmation: Confirmed ; Classification: Medical ; Code: 544600309 ; Contributor System: PowerChart ; Last Updated: 12/02/2013 10:28 EDT ; Life Cycle Date: 12/02/2013 ; Life Cycle Status: Active ; Vocabulary: SNOMED CT High cholesterol (SNOMED CT :83553926 ) Name of Problem: High cholesterol ; Recorder: GISELE LOPEZ RN; Confirmation: Confirmed ; Classification: Medical ; Code: 72189373 ; Contributor System: PowerChart ; Last Updated: 09/01/2014 10:48 EST ; Life Cycle Date: 09/01/2014 ; Life Cycle Status: Active ; Vocabulary: SNOMED CT PAD (peripheral artery disease) (SNOMED CT :4633817720 ) Name of Problem: PAD (peripheral artery disease) ; Recorder: CHANG SEVILLA RN; Confirmation: Confirmed ; Classification: Medical ; Code: [id number] ; Contributor System: PowerChart ; Last Updated: 08/07/2014 17:12 EST ; Life Cycle Date: 08/07/2014 ; Life Cycle Status: Active ; Vocabulary: SNOMED CT Peripheral neuropathy (SNOMED CT :38764919 ) Name of Problem: Peripheral neuropathy ; Recorder: DIANNA SHI RN; Confirmation: Confirmed ; Classification: Medical ; Code: 12615385 ; Contributor System: PowerChart ; Last Updated: 12/02/2013 10:28 EDT ; Life Cycle Date: 12/02/2013 ; Life Cycle Status: Active ; Vocabulary: SNOMED CT Diagnoses(Active) Hypotension Date: 07/25/2021 ; Diagnosis Type: Reason For Visit ; Confirmation: Complaint of ; Clinical Dx: Hypotension ; Classification: Medical ; Clinical Service: Non-Specified ; Code: PNED ; Probability: 0 ; Diagnosis Code: [id number] ED Height and Weight Height Source : Stated Height Entry Format : [place] Height, Feet : 5 ft(Converted to: 152 cm, 60 Inch) Height, Inches : 2 Inch(Converted to: 0 ft 2 Inch, 5.08 cm) Clinical Height : 157.48 cm Weight Source, ED : Critical estimated dosing weight Weight Entry Format : [place] Weight, Pounds : 150 lb Clinical Dosing Weight : 68.18 kg Body Surface Area (BSA) : 1.69 m2 Body Mass Index : 27.5 kg/m2 (HI) [place] Body Weight (IBW) : 53.73 kg TAMMI DELCID RN - 07/25/2021 16:12 EST Electronically signed by [facility] Conversion Qa Test Lead Cerner at 11/17/2022 9:28 AM CDT documented in this encounter Plan of Treatment Not on file documented as of this encounter Visit Diagnoses Not on filedocumented in this encounter Care Teams Relocation Director Relationship Specialty Start Date End Date Colby Quan MD [address] [facility] [address] [place] [phone] PCP - General Family Medicine 05/09/23 documented as of this encounter
--- OUTSIDE RECORDS SUMMARY | 2025-03-20 07:45 | XMS_ITS | Encounter Summary ---
Author Organization [employer] ([place], [place], [place], [place]) Address [address] [place] [address] Care Team Providers Care Devops Consultant Name Role Phone Colby Quan MD Primary Care Provider [phone] Encounter Details Date Type Department Care Team (Late st Contact Info) Description 07/25/2021 Transcribed Document [facility] [place] Family Medicine [address] [place] [address] ProviderJames MD [address] [place], [place] [address] Social History Tobacco Use Types Packs/Day Years Used Date Smoking Tobacco: Never Assessed Sex and Gender Information Value Date Recorded Sex Assigned at Not on file Legal Sex Male 1:17 PM CDT Gender Identity Not on file Sexual Orientation Not on file documented as of this encounter Miscellaneous Notes * Cerner Conversion Note - Historical ProviderMD - 07/25/2021 7:30 PM COLD HEADER documented in this encounter Plan of Treatment Not on file documented as of this encounter Visit Diagnoses Not on filedocumented in this encounter Care Teams Devops Consultant Relationship Specialty Start Date End Date Colby Quan MD [address] [facility] [address] [place] [phone] PCP - General Family Medicine 05/09/23 documented as of this encounter
--- NOTE | 2025-03-20 08:00 | CT_ITS ---
FINAL REPORT CLINICAL HISTORY: PAD,claudication COMPARISON: 12/22/2021 FINDINGS: Post contrast axial imaging of the aorta and bilateral lower extremity was obtained and reviewed. This study was performed with techniques to keep radiation doses as low as reasonably achievable (ALARA). Individualized dose reduction techniques using automated exposure control or adjustment of mA and/or kV according to the patient's size were employed. Abdominal aorta: No evidence of aortic aneurysm is identified. There is calcification involving the origin of the celiac axis, without significant stenosis. There is focal stenosis of the proximal superior mesenteric artery, producing approximately 50% diameter stenosis, more evident than seen on the prior exam. There are dual renal arteries on the right and the left. There is a stent present in the superior left renal artery, when compared to the prior exam the stent appears new. There is questionable debris within the proximal aspect of the left renal artery stent, best seen on images #88 through 90 of series 6001, producing approximately 60% diameter stenosis. The inferior mesenteric artery is not identified. There is an aortobifemoral graft present, that arises from the anterior aspect of the infrarenal abdominal aorta. The cheesh-na left iliac artery is occluded, with the stent graft patent to the distal anastomosis. The right cheesh-na iliac artery is patent, as is the graft to its distal anastomosis. There is a femoral-femoral graft noted, which appears occluded, and with the same appearance noted on the prior CT of 2021. Left: There is extensive calcification and stenosis in the left superficial femoral artery. There may be some small segments that are occluded and difficult to identify secondary to dense vascular calcification. The vessel from the mid superficial femoral artery to the popliteal artery has areas of significant stenosis, greater than 90% at some locations. The popliteal artery is patent. There is poor contrast identified in the calf vessels, although there does appear to be flow in the posterior tibial artery to the ankle. Right: There are extensive irregular calcifications and stenoses in the right superficial femoral artery, including to the adductor canal, with greater than 90% stenosis at some locations. The popliteal artery is patent. There is poor contrast visualization distally, although there appears to be runoff in the posterior tibial artery. Left: There is extensive calcification and stenoses in the left superficial femoral artery. There may be some segments that are occluded and are difficult to identify secondary to dense vascular calcification. The mid superficial femoral artery to the adductor canal appears occluded, with reconstitution at the popliteal artery. There is poor visualization of the distal vessels, however there may be runoff in the posterior tibial artery to the ankle. Scarring is present in the lung bases. The gallbladder has been surgically resected. There are focal perfusion defects, 1 in the right lobe of the liver and 2 in the left lobe of the liver, that were seen on the prior CTA of 2021 and appear stable. The spleen is unremarkable in appearance. There are calcifications in the pancreatic head, consistent with changes of chronic pancreatitis. The adrenal glands are unremarkable. There is extensive diverticulosis present in the sigmoid colon. There is no fluid collection or acute inflammatory process. IMPRESSION: The aortoiliac bypass graft is patent. There is focal stenosis in the proximal superior mesenteric artery of approximately 50%, more evident than seen on the prior exam. The inferior mesenteric artery is not identified and likely occluded. There is a stent present in the left renal artery, which appears new since the prior exam. There appears to be debris in the proximal portion of the stent, that produces approximately 60% luminal diameter stenosis. The aortobifemoral graft is patent. Extensive irregular calcifications and stenoses in the right superficial femoral artery including the adductor canal, producing greater than 90% stenosis at some locations. Extensive calcifications and stenosis in the left superficial femoral artery, that likely has some segments occluded prior to reconstitution of the popliteal artery. There is poor visualization of the vessels distal to the trifurcation in the lower legs, however, there appears to be single-vessel runoff bilaterally. Reviewed, Interpreted and Dictated by Florentino Rodrigues MD Transcribed by Adelita Guerra Authenticated and [facility]
[2025-03-20] MEDS: IOPAMIDOL-370 (76%);100ML BOTTLE 120 ML IV (08:27)
[2025-03-20] MEDS: 0.9 % SODIUM CHLORIDE 50 ML VIAL 10 ML IV (08:27)
== END 2025-03-20 23:59 | disposition home or self-care (01) ==
LOC: RAD 07:41
PROVIDERS: PCP Family Medicine; Visit Provider Physician Assistant
DX: T82.398A Other mechanical complication of other vascular grafts, initial encounter (principal); I70.201 Unspecified atherosclerosis of native arteries of extremities, right leg; K55.1 Chronic vascular disorders of intestine; I10 Essential (primary) hypertension; I25.10 Atherosclerotic heart disease of native coronary artery without angina pectoris; R09.89 Other specified symptoms and signs involving the circulatory and respiratory systems; Z95.828 Presence of other vascular implants and grafts
CPT/HCPCS: 75635; Q9967

== ENCOUNTER 2025-04-02 08:13 | Day surgery (SDC) | payer MEDICARE, OTHER, SELFPAY ==
[2025-04-02] VITALS (11 sets, daily range): BP systolic 120–178; BP diastolic 60–90; PULSE 70–73; RESP 16–18; TEMP 36.6; O2SAT 91–97; BMI 26.8
--- NOTE | 2025-04-02 07:05 | IR_ITS ---
APPROVED REPORT Patient Location: Outpatient PROCEDURES Right radial arterial access Catheter placement in the aortobifem graft with selective engagement of the left femoral bypass graft Left femoral bypass graft selective angiography with bilateral iliofemoral runoff to the distal left popliteal artery Catheter placement in the distal abdominal aorta Distal abdominal aortography INDICATION Abnormal CTA, Peripheral artery disease, [place] claudication class III, History of aortobifem bypass surgery Informed consent was obtained prior to the procedure. COMPLICATIONS NONE Estimated Blood Loss: LESS THAN 10 ML TECHNIQUE One percent lidocaine used to anesthetize the right anterior aspect of the wrist. The right radial artery was accessed via the Seldinger technique. A 6 [place] sheath was placed in the right radial artery. 2.5 mg of Verapamil, 800 mcg of nitroglycerin, 1mg Lidocaine and 5000 U Heparin were given through the arterial sheath. A 119 cm hydrophilic sheath was then exchanged for the 6 [place] sheath and a PV multi curve was used to cannulate the aortobifem graft. The aortobifem graft after being selected with a PV multi curve then had a wire placed into the left limb of the bifemoral graft and the sheath was advanced. Selective angiography was performed with iliofemoral runoff to the left distal popliteal artery. The catheter was pulled back and a distal abdominal aortogram was performed. At the end the procedure the apparatus was removed the sheath was removed hemostasis was achieved and TR banding patient was transferred to the postop already in stable condition ANGIOGRAPHIC RESULTS The distal abdominal aorta is occluded The aortobifem graft is widely patent. Both limbs of the bypass graft are patent. There are anatomical kinks in the left limb which did not have a gradient upon pullback with a PV multi curve. The left limb of the bypass graft anastomoses into the distal left femoral artery. The left superficial femoral artery is ostially occluded. The left profunda femoris artery is widely patent and collateralizes the distal popliteal artery. The distal popliteal artery is a large vessel which fills distally. Visualization of the anterior posterior tibialis artery and peroneal artery was not performed IMPRESSION Peripheral artery disease as described above Chronically occluded left SFA which cannot be revascularized due to the ostial occlusion and extensive calcification throughout Extensive collateralization through the profunda femoris into the left popliteal artery PLAN 1. Medical management 2. Physical therapy with rehabilitation 3. LDL less than 55 to be achieved with high intensity statin 4. Avoidance of tobacco products Electronically signed by : Emery Odom MD 04/04/2025 17:27:29
[2025-04-02 09:06] LABS: Hematocrit 43.5 % (42.0-52.0); Hemoglobin 13.5 g/dL (14.1-18.0); Immature Granulocytes % 0.3 %; Mean Corpuscular HGB Conc 31.0 g/dL (31.8-35.4); Mean Corpuscular Hemoglobin 28.7 pg (27.0-31.2); Mean Corpuscular Volume 92.4 fl (80-94); Nucleated Red Blood Cells % 0 %; Platelet Count 152 K/mm3 (142-424); Red Blood Count 4.71 M/mm3 (4.60-6.20); Red Cell Distribution Width-SD 52.3 fL; White Blood Count 7.6 K/mm3 (4.8-10.8)
[2025-04-02 09:33] LABS: Anion Gap 16.4 mEq/L (5-15); Blood Urea Nitrogen 24 mg/dl (9-20); Calcium 9.5 mg/dl (8.4-10.2); Carbon Dioxide 26 mmol/L (22.0-30.0); Chloride 104 mmol/L (98-107); Creatinine Clearance Estimated 34 mL/min (50-200); Creatinine,Serum 1.70 mg/dl (0.66-1.25); Estimated Glomerular Filt Rate 38 ml/min (>60); GFR (African American) 47 ML/MIN (>60); Glucose 127 mg/dl (74-100); Potassium 5.4 mmoL/L (3.5-5.1); Sodium 141 mmol/L (136-145)
[2025-04-02] MEDS: NITROGLYCERIN 800MCG/8ML SYR (CATH LAB) 800 MCG IA (10:52)
[2025-04-02] MEDS: VERAPAMIL 2.5MG/ML 2ML VIAL 2.5 MG IV (10:53)
[2025-04-02] MEDS: HEPARIN 1,000 UNITS/ML 10ML VIAL (CATH LAB) 5000 UNIT IV (10:53)
[2025-04-02] MEDS: HEPARIN 1,000 UNITS/500ML NS (CATH LAB) 3000 UNIT IV (10:53)
[2025-04-02] MEDS: LIDOCAINE 1% 10ML MDV 10 ML IJ (10:53)
[2025-04-02] MEDS: 0.9 % SODIUM CHLORIDE 500 ML 25 ML IV (10:53)
[2025-04-02] MEDS: MIDAZOLAM HCL 1MG/ML 5ML VIAL 1 MG IV (11:33)
[2025-04-02] MEDS: FENTANYL 100MCG/2ML VIAL 50 MCG IV (11:33)
[2025-04-02] MEDS: IOHEXOL-240 100ML BOTTLE 112 ML IV (14:23)
== END 2025-04-02 14:56 | disposition home or self-care (01) ==
LOC: CATHLAB 08:14
PROVIDERS: PCP Family Medicine; Visit Provider Internal Medicine
DX: I70.212 Atherosclerosis of native arteries of extremities with intermittent claudication, left leg (principal); E11.51 Type 2 diabetes mellitus with diabetic peripheral angiopathy without gangrene; R09.89 Other specified symptoms and signs involving the circulatory and respiratory systems; I25.119 Atherosclerotic heart disease of native coronary artery with unspecified angina pectoris; I70.1 Atherosclerosis of renal artery; I11.0 Hypertensive heart disease with heart failure; I50.32 Chronic diastolic (congestive) heart failure; I48.91 Unspecified atrial fibrillation; J44.9 Chronic obstructive pulmonary disease, unspecified; E78.2 Mixed hyperlipidemia; F01.50 Vascular dementia, unspecified severity, without behavioral disturbance, psychotic disturbance, mood disturbance, and anxiety; N40.1 Benign prostatic hyperplasia with lower urinary tract symptoms; N13.8 Other obstructive and reflux uropathy; I25.2 Old myocardial infarction; Z86.73 Personal history of transient ischemic attack (TIA), and cerebral infarction without residual deficits; Z87.891 Personal history of nicotine dependence; Z95.5 Presence of coronary angioplasty implant and graft; Z95.0 Presence of cardiac pacemaker; Z79.02 Long term (current) use of antithrombotics/antiplatelets; Z79.84 Long term (current) use of oral hypoglycemic drugs; Z79.01 Long term (current) use 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s; Z79.899 Other long term (current) drug therapy; Z88.0 Allergy status to penicillin; Z82.49 Family history of ischemic heart disease and other diseases of the circulatory system
CPT/HCPCS: 36200; 36246; 75625; 80048; 85025; 99152; 99153; C1725; C1769; J1200; J1644; J2003; J3010; J7040; Q9966

== ENCOUNTER 2025-04-06 19:18 | Emergency (ER) | payer MEDICARE, OTHER, SELFPAY ==
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
--- OUTSIDE RECORDS SUMMARY | 2024-10-24 06:00 | XMS_ITS ---
Author Organization [facility] Address [address] [facility] [address] [facility] [address] [place] [phone] Care Team Providers Care Sports Journalist Name Role Phone Colby Quan Primary Care Provider REASON FOR VISIT 2.5 months Encounters Encounter Location Date Provider Diagnosis [facility] [address] [place] [phone] 10/24/2024 Colby Quan Plan Of Treatment Next Appt Details Provider Name:Colby Bolaños ry, 07/02/2025 01:30:00 PM, [address], [address], [place], [phone], Progress Notes * VARUN BRITTOB: [birth year] (84 yo M)Acc No.[id number]:10/24/2024 Progress Notes Patient: DAYSI EGAN Provider: Leonel Quan M.D. :1940 A ge:84 Y S ex:Male Date:10/24/2024 Address:[address], [id number] Subjective: * Chief Complaints: * 1 . 2.5 months. * Medical History: Objective: * Vitals: Assessment: Plan: * Treatment: * Images: Billing Information: * Visit Code: * Procedure Codes: * Electronic signature of May Quan MD on 04/06/2025 at 07:31 PM EDT Sign off status: Pending * Provider: Leonel Quan M.D. Date: 0 10/24/2024 Generated for Cedric bustamante/Vadim/Cade on: 0 04/06/2025 07:31 PM EDT
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
[2025-04-06] VITALS (7 sets, daily range): BP systolic 151–195; BP diastolic 47–82; PULSE 70–75; RESP 12–18; TEMP 36.9–37.2; O2SAT 94–99; BMI 27.4
--- OUTSIDE RECORDS SUMMARY | 2025-04-06 19:30 | XMS_ITS | Clinical Summary ---
Author Organization [employer] ([place], [place], [place], [place]) Address [address] [place] [address] Care Team Providers Care Casing Fluid Tender Name Role Phone Colby uQan MD Primary Care Provider + [phone] Allergies Active Allergy Reactions Criticality Noted Date [...] Date Michael rded Speak language other than Guyanese at home Not on file 08/18/2023 Want [...] or (1 - 1-dose 75+ series) 2014 Falls Risk Screening 07/31/2024 Tobacco Cessation Counseling and Screening (12+) 09/04/2024 09/04/2023 COVID-19 VACCINE (2 - 2024-2 6 season) 2025 10/08/2020 Influenza Vaccine (#1) 2025 , 06/02/2020, 05/05/2016, Additional history exists Pneumococcal 50+ years Completed 07/25/2022, 2012 Insurance MEDICARE PART B ONLY AETNA [facility] Advance Directives For more information, please contact: [phone] Documents on File Type Date Recorded Patient Molded Rubber Goods Cutter Expl anation Power of Welt Wheeler 05/10/2023 1:34 PM POA 05/10/23 Care Teams Casing Fluid Tender Relationship Specialty Start Date End Date Colby Quan MD [address] [place] [facility] [address] [place] [phone] PCP - General Family Medicine 05/09/23
--- OUTSIDE RECORDS SUMMARY | 2025-04-06 19:30 | XMS_ITS | Encounter Summary ---
Author Organization [employer] ([place], [place], [place], [place]) Address [address] [place] [address] Care Team Providers Care Metallurgical Engineering Teacher Name Role Phone Colby Quan MD Primary Care Provider + [phone] Encounter Details Date Type Department Care Team (Late st Contact Info) Description 07/25/2021 Transcribed Document [facility] [place] Family Medicine Formerly [facility] [place] [address] ProviderJames MD [address] [place] [id number] Social History Tobacco Use Types Packs/Day Years Used Date Smoking Tobacco: Never Assessed Sex and Gender Information Value Date Recorded Sex Assigned at Not on file Legal Sex Male 1:17 PM CDT Gender Identity Not on file Sexual Orientation Not on file documented as of this encounter Miscellaneous Notes * Cerner Conversion Note - Historical ProviderMD - 07/25/2021 7:51 PM ENTERTAINER & COMIC ED Discharge Entered On: 07/25/2021 19:52 EST Performed On: 07/25/2021 19:51 EST by Carissa Mak Tacker Elastic Band Process Patient Disposition : Discharge Personal Belongings [...] - 07/25/2021 19:51 EST Electronically signed by [facility] Conversion Commercial Marketing Specialist Cerner at 11/17/2022 9:45 AM CDT documented in this encounter Plan of Treatment Not on file documented as of this encounter Visit Diagnoses Not on filedocumented in this encounter Care Teams Metallurgical Engineering Teacher Relationship Specialty Start Date End Date Colby Quan MD [address] [facility] [address] [place] [phone] PCP - General Family Medicine 05/09/23 documented as of this encounter
--- OUTSIDE RECORDS SUMMARY | 2025-04-06 19:30 | XMS_ITS | Clinical Summary ---
Author Organization [facility] Address [address] [facility] [address] [place] [address] Phone Care Team Providers Care Transfer Knitter Name Role Phone Unavailable Unavailable Conditions or Problems No information available. Medications No information available. Medications Administered No information available. Allergies, Adverse Reactions, Alerts No information available. Results No information available. Plan of Care No information available. Procedures No information available. Vital Signs No information available. Immunizations No information available. Advance Directives No information available.
--- OUTSIDE RECORDS SUMMARY | 2025-04-06 19:30 | XMS_ITS | Encounter Summary ---
Author Organization [employer] ([place], [place], [place], [place]) Address [address] [place] [address] Care Team Providers Care Patient Account Specialist Name Role Phone Xochitl Quan MD Primary Care Provider + [phone] Encounter Details Date Type Department Care Team (Late st Contact Info) Description 07/25/2021 Transcribed Document [facility] [place] [address] ProviderJames MD [address] [place] [id number] Social History Tobacco Use Types Packs/Day Years Used Date Smoking Tobacco: Never Assessed Sex and Gender Information Value Date Recorded Sex Assigned at Not on file Legal Sex Male 1:17 PM CDT Gender Identity Not on file Sexual Orientation Not on file documented as of this encounter Miscellaneous Notes * [employer] Conversion Note - James Brody MD - 07/25/2021 6:43 PM CHECK OUT CLERK Patient: DAYSI KIM Age: 80 years Sex: [...] Medical/ Family/ Social History Surgical history: Cholecystectomy ([id number]). Stent in kidney (not sure which one). [...] Active Problems (11) Atrial fibrillation CAD s/p MT stent CHF - Congestive heart failure CKD [...] 11.9 % LOW Lymph # 1.16 x10(3)/uL Hutchinson % 7.4 % [place] # 0.72 K/uL Eos % 3.7 % Eos # 0.36 x10(3)/uL Baso % 0.1 % Baso # 0.01 x10(3)/uL RBC Morphology Abnormal Anisocytosis 1+ Poikilocytosis 2+ [place] Cells 2+ Elliptocytes 1+ Ovalocytes 1+ Platelet [...] on filedocumented in this encounter Care Teams Patient Account Specialist Relationship Specialty Start Date End Date Xochitl Quan MD [address] [facility] [address] [place] [address] PCP - General Family Medicine 05/09/23 documented as of this encounter
--- OUTSIDE RECORDS SUMMARY | 2025-04-06 19:30 | XMS_ITS | Encounter Summary ---
Author Organization [employer] ([place], [place], [place], [place]) Address [address] [place] [address] Care Team Providers Care Gear Lapping Machine Operator Name Role Phone Colby Quan MD Primary Care Provider + [phone] Encounter Details Date Type Department Care Team (Late st Contact Info) Description 07/26/2021 Transcribed Document [facility] [place] [facility] [place] [address] ProviderJames MD [address] [place] [id number] Social History Tobacco Use Types Packs/Day Years Used Date Smoking Tobacco: Never Assessed Sex and Gender Information Value Date Recorded Sex Assigned at Not on file Legal Sex Male 1:17 PM CDT Gender Identity Not on file Sexual Orientation Not on file documented as of this encounter Miscellaneous Notes * [employer]ner Conversion Note - Historical ProviderMD - 07/26/2021 9:05 AM MINERAL ECONOMIST CR Chest 1 Vw Portable Ordered: 07/25/2021 Modified Reason for Exam: chest pain 07/25/2021 20:34 07/26/2021 09:05 (RADHA WATSON APRN) Reviewed by Provider, No further action required x1 Electronically signed by Tonja [facility] Conversion Customs And Border Protection Officer Cerner at 11/17/2022 9:46 AM CDT documented in this encounter Plan of Treatment Not on file documented as of this encounter Visit Diagnoses Not on filedocumented in this encounter Care Teams Gear Lapping Machine Operator Relationship Specialty Start Date End Date Colby Quan MD [address] [facility] [address] [place] [address] PCP - General Family Medicine 05/09/23 documented as of this encounter
--- OUTSIDE RECORDS SUMMARY | 2025-04-06 19:30 | XMS_ITS | Encounter Summary ---
Author Organization [employer] ([place], [place], [place], [place]) Address [address] [place] [address] Care Team Providers Care Client Success Manager Name Role Phone Colby Quan MD Primary Care Provider + [phone] Encounter Details Date Type Department Care Team (Late st Contact Info) Description 07/25/2021 Transcribed Document [facility] [place] [facility] [address] ProviderJames MD [facility] [place], [place] [id number] Social History Tobacco Use Types Packs/Day Years Used Date Smoking Tobacco: Never Assessed Sex and Gender Information Value Date Recorded Sex Assigned at Not on file Legal Sex Male 1:17 PM CDT Gender Identity Not on file Sexual Orientation Not on file documented as of this encounter Miscellaneous Notes * [employer]ner Conversion Note - Historical ProviderMD - 07/25/2021 4:04 PM ESCALATOR OPERATOR ED Assessment Entered On: 07/25/2021 17:07 EST [...] Communication Barrier : None Primary Language : Grenadian Any Spiritual/Cultural Needs or Requests : No [...] : WDL with exceptions (Comment: Hx of [place], stents; Brought in by daughter for hypotension, [...] - 07/25/2021 17:05 EST Electronically signed by [facility] Conversion Senior Environmental Engineer Cerner at 11/17/2022 9:45 AM CDT documented in this encounter Plan of Treatment Not on file documented as of this encounter Visit Diagnoses Not on filedocumented in this encounter Care Teams Client Success Manager Relationship Specialty Start Date End Date Colby Quan MD [address] [place] [facility] [address] [place] [address] PCP - General Family Medicine 05/09/23 documented as of this encounter
--- OUTSIDE RECORDS SUMMARY | 2025-04-06 19:30 | XMS_ITS | Encounter Summary ---
Author Organization [employer] ([place], [place], [place], [place]) Address [address] [place] [address] Care Team Providers Care Automotive Collision Repair Instructor Name Role Phone Xochitl Quan MD Primary Care Provider + [phone] Encounter Details Date Type Department Care Team (Late st Contact Info) Description 07/25/2021 Transcribed Document [facility] [place] [facility] [place] [address] ProviderJames MD [address] [place] [address] Social History Tobacco Use Types Packs/Day Years Used Date Smoking Tobacco: Never Assessed Sex and Gender Information Value Date Recorded Sex Assigned at Not on file Legal Sex Male 1:17 PM CDT Gender Identity Not on file Sexual Orientation Not on file documented as of this encounter Miscellaneous Notes * Cerner Conversion Note - James Brody MD - 07/25/2021 7:32 PM COMMUNICATION CONSULTANT [facility] [place] [address] DAYSI KIM :1940 Visit Time:07/25/2021 [...] restart the lisinopril and the carvedilol. Where: [facility] [address] [place] [address] [place] [phone]- [employer] (1) Allergies penicillin (angioedema, hives) Immunizations This [...] range between ( 0.0 and 7.0 ) Bowman #: 0.72 K/uL -- Normal range between ( 0.16 and 1.00 ) Elliptocytes: 1+ Eos #: 0.36 x10(3)/uL -- Normal range between ( 0.00 and 0.80 ) Bowman %: 7.4 % -- Normal range between [...] up suddenly after eating. Medicines ??? Take rkig-mic-idrruhf and prescription medicines only as told by [...] provider. Document Revised: 01/10/2019 Document Reviewed: 01/10/2019 [email or web address] Patient Education ?? 2020 [employer]. Emergency Awareness and Preventative Care STROKE is [...] Assistance with quitting is available by contacting 2-595-YFEU-NOW. This is a free resource providing counseling, [...] was given the opportunity to ask questions. Patient/Home Theater Installer Name: Patient/Home Theater Installer Signature: Relationship to Patient: Clinician/Hospital Home Theater Installer Signature: Please Provide a Telephone Number Where You Can Be Reached: Is it Permissible To Leave a Message? Date: Electronically signed by Tonja [facility] Conversion Sports Management Professor Cerner at 11/17/2022 9:48 AM CDT documented in this encounter Plan of Treatment Not on file documented as of this encounter Visit Diagnoses Not on filedocumented in this encounter Care Teams Automotive Collision Repair Instructor Relationship Specialty Start Date End Date Xochitl Quan MD [address] [place] [address] PCP - General Family Medicine 05/09/23 documented as of this encounter
--- OUTSIDE RECORDS SUMMARY | 2025-04-06 19:30 | XMS_ITS | Encounter Summary ---
Author Organization [employer] ([place], [place], [place], [place]) Address [address] [place] [address] Care Team Providers Care Supermarket Manager Name Role Phone Colby Quan MD Primary Care Provider + [phone] Encounter Details Date Type Department Care Team (Late st Contact Info) Description 07/25/2021 Transcribed Document [facility] [place] [facility] [place] [address] ProviderJames MD [address] [place], [place] [id number] Social History Tobacco Use Types Packs/Day Years Used Date Smoking Tobacco: Never Assessed Sex and Gender Information Value Date Recorded Sex Assigned at Not on file Legal Sex Male 1:17 PM CDT Gender Identity Not on file Sexual Orientation Not on file documented as of this encounter Miscellaneous Notes * [employer] Conversion Note - Historical ProviderMD - 07/25/2021 4:04 PM TAPE COATER Broset Violence Assessment Entered On: 07/25/2021 17:07 EST Performed On: 07/25/2021 17:07 EST by TAMMI DELCID RN Broset Violence Assessment Broset Violence Checklist of Symptoms : None Broset Violence Symptoms Subtotal : 0 Broset Violence Symptoms Indicator : Low risk (0) TAMMI DELCID RN - 07/25/2021 17:07 EST Electronically signed by Tonja [facility] Conversion Emergency Management Director Cerner at 11/17/2022 9:50 AM CDT documented in this encounter Plan of Treatment Not on file documented as of this encounter Visit Diagnoses Not on filedocumented in this encounter Care Teams Supermarket Manager Relationship Specialty Start Date End Date Colby Quan MD [address] [place] [address] [place] [id number] PCP - General Family Medicine 05/09/23 documented as of this encounter
--- OUTSIDE RECORDS SUMMARY | 2025-04-06 19:31 | XMS_ITS | Encounter Summary ---
Author Organization Healthcare Address [address] [place] [address] Care Team Providers Care Storm Door Maker Name Role Phone Colby Quan MD Primary Care Provider [phone] Encounter Details Date Type Department Care Team (Late st Contact Info) Description 05/07/2023 Orders Only External Location [address] [place] [address] Wali Acevedo MD [address] [place] [address] Social History Tobacco Use Types [...] 05/07/2023 11:2 3 AM EDT us Wali cAevedo MD IMG CT PROCEDURES Final Resul t documented in this encounter Visit Diagnoses Not on filedocumented in this encounter Care Teams Storm Door Maker Relationship Specialty Start Date End Date Colby Quan MD [address] [place] [address] PCP - General 12/11/20 documented as of this encounter
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
--- OUTSIDE RECORDS SUMMARY | 2025-04-06 19:31 | XMS_ITS | Referral Summary ---
Author Organization [employer] ([place], [place], [place], [place]) Address [address] [place] [address] Care Team Providers Care Floating Labor Gang Supervisor Name Role Phone Colby Quan MD Primary Care Provider + [phone] Allergies Active Allergy Reactions Criticality Noted Date [...] Date Michael rded Speak language other than Bahraini at home Not on file 08/18/2023 Want [...] on file Insurance MEDICARE PART B ONLY [place] [id number] [employer] [facility] Advance Directives For more information, please contact: [phone] Documents on File Type Date Recorded Patient Power Sweeper Operator Expl anation Power of Pipe Coremaker 05/10/2023 1:34 PM POA 05/10/23 Care Teams Floating Labor Gang Supervisor Relationship Specialty Start Date End Date Colby Quan MD [address] [facility] [address] [place] [id number] PCP - General Family Medicine 05/09/23
--- OUTSIDE RECORDS SUMMARY | 2025-04-06 19:31 | XMS_ITS | Encounter Summary ---
Author Organization [facility] Address [address] [id number] Care Team Providers Care Christmas Tree Contractor Name Role Phone Colby Quan MD Primary Care Provider [phone] Encounter Details Date Type Department Care Team (Late st Contact Info) Description 02/19/2024 Orders Only External Location [address] [place] [address] Costa Melendez MD [facility] [place] [address] Social History Tobacco Use Types Packs/Day Years [...] on filedocumented in this encounter Care Teams Christmas Tree Contractor Relationship Specialty Start Date End Date Colby Quan MD [address] [place] [address] PCP - General 12/11/20 documented as of this encounter
--- OUTSIDE RECORDS SUMMARY | 2025-04-06 19:31 | XMS_ITS | Clinical Summary ---
Author Organization [facility] Address [address] [place] [address] Care Team Providers Care Aviation Neuropsychologist Name Role Phone Colby Quan MD Primary Care Provider [phone] Allergies Active Allergy Reactions Criticality Noted Date [...] A1C 1940 [facility]-Medicare Annual Wellness (AWV) 1940 [facility]-Infant/Child/Adol SDOH Screenings 1940 Diabetes: Dental Exam 1949 [facility]- SDOH Screenings 1957 [facility]-Adult SDOH Screenings 1957 [facility]-DTaP,Tdap,and Td Vaccines (1 - Tdap) 1958 [facility]-Zoster Vaccines (1 of 2) 1989 [facility]-RSV Vaccine: 60+ Years or (1 - 1-dose 75+ series) 2014 [id number] Vaccine (2 - season) 2025 10/08/2020 [facility]-Influenza Vaccine (#1) 03/31/202506/02, 11/01/2017, 05/05/2016, [...] age to complete this topic Insurance [employer] [facility] MEDICAID MEDICARE Care Teams Aviation Neuropsychologist Relationship Specialty Start Date End Date Colby Quan MD [address] [place] [address] PCP - General 12/11/20
--- OUTSIDE RECORDS SUMMARY | 2025-04-06 19:32 | XMS_ITS | Encounter Summary ---
Author Organization [employer] ([place], [place], [place], [place]) Address [address] [place] [address] Care Team Providers Care Batch Unloader Name Role Phone Colby Quan MD Primary Care Provider [phone] Encounter Details Date Type Department Care Team (Late st Contact Info) Description 07/25/2021 Transcribed Document [facility] [address] [place] [address] ProviderJames MD [address] [place], [place] [address] Social History Tobacco Use Types Packs/Day Years Used Date Smoking Tobacco: Never Assessed Sex and Gender Information Value Date Recorded Sex Assigned at Not on file Legal Sex Male 1:17 PM CDT Gender Identity Not on file Sexual Orientation Not on file documented as of this encounter Miscellaneous Notes * Cerner Conversion Note - Historical ProviderMD - 07/25/2021 7:30 PM DRAWBRIDGE OPERATOR Electronically signed by Tonja [facility] Conversion Boiler Room Operator Cerner at 11/17/2022 9:40 AM CDT documented in this encounter Plan of Treatment Not on file documented as of this encounter Visit Diagnoses Not on filedocumented in this encounter Care Teams Batch Unloader Relationship Specialty Start Date End Date Colby Quan MD [address] [facility] [address] [place] [phone] PCP - General Family Medicine 05/09/23 documented as of this encounter
--- OUTSIDE RECORDS SUMMARY | 2025-04-06 19:32 | XMS_ITS | Encounter Summary ---
Author Organization [employer] ([place], [place], [place], [place]) Address [address] [place] [address] Care Team Providers Care Cryptological Technician Name Role Phone Colby Quan MD Primary Care Provider + [phone] Encounter Details Date Type Department Care Team (Late st Contact Info) Description 07/25/2021 Transcribed Document [facility] [place] Family Medicine Formerly [facility] [place] [address] ProviderJames MD [address] [place] [address] [id number] Social History Tobacco Use Types Packs/Day Years Used Date Smoking Tobacco: Never Assessed Sex and Gender Information Value Date Recorded Sex Assigned at Not on file Legal Sex Male 1:17 PM CDT Gender Identity Not on file Sexual Orientation Not on file documented as of this encounter Miscellaneous Notes * [employer]ner Conversion Note - James ProviderMD - 07/25/2021 4:04 PM [employer] ED Triage Entered On: 07/25/2021 16:14 EST [...] : 3 - Urgent Tracking Group : [facility] ED TAMMI DELCID RN - [...] 16:14:25 EST) Problems(Active) Atrial fibrillation (SNOMED CT :79325827 ) Name of Problem: Atrial fibrillation ; Recorder: NIRAV COLE RN; Confirmation: Confirmed ; Classification: Medical ; Code: [id number] ; Contributor System: Code Climate ; Last Updated: 01/09/2014 19:25 EDT ; Life Cycle Date: 07/05/2013 ; Life Cycle Status: Active ; Vocabulary: SNOMED CT CAD s/p AL stent (SNOMED CT :8215535390 ) Name of Problem: CAD s/p AL stent ; Recorder: CHANG SEVILLA RN; Confirmation: Confirmed ; Classification: Medical ; Code: [id number] ; Contributor System: PowerChart ; Last Updated: 12/10/2016 22:14 EDT ; Life Cycle Date: 08/07/2014 ; Life Cycle Status: Active ; Vocabulary: SNOMED CT CHF - Congestive heart failure (SNOMED CT :972214868 ) Name of Problem: CHF - Congestive heart failure ; Recorder: NIRAV COLE RN; Confirmation: Confirmed ; Classification: Medical ; Code: [id number] ; Contributor System: PowerChart ; Last Updated: 01/14/2014 10:55 EDT ; Life Cycle Date: 07/05/2013 ; Life Cycle Status: Active ; Vocabulary: SNOMED CT CKD (chronic kidney disease), stage III (SNOMED CT :1613168927 ) Name of Problem: CKD (chronic kidney disease), stage III ; Recorder: ALLYSON ZAIDI MD-EMR; Confirmation: Complaint of ; Classification: Medical ; Code: [id number] ; Contributor System: PowerChart ; Last Updated: 12/10/2016 22:14 EDT ; Life Cycle Date: 12/10/2016 ; Life Cycle Status: Active ; Vocabulary: SNOMED CT COPD (SNOMED CT :26109106 ) Name of Problem: COPD ; Recorder: NIRAV COLE RN; Confirmation: Confirmed ; Classification: Medical ; Code: 24428161 ; Contributor System: ZooplusChart ; Last Updated: 01/14/2014 10:36 EDT ; Life Cycle Date: 07/05/2013 ; Life Cycle Status: Active ; Vocabulary: SNOMED CT ; Comments: 12/02/2013 11:05 - DIANNA SHI, RN 2 l o2 at night prn CVA (cerebrovascular accident) (SNOMED CT :764265993 ) Name of Problem: CVA (cerebrovascular accident) ; Recorder: ALLYSON ZAIDI MD-EMR; Confirmation: Complaint of ; Classification: Medical ; Code: [id number] ; Contributor System: ZooplusChart ; Last Updated: 12/10/2016 22:14 EDT ; Life Cycle Date: 12/10/2016 ; Life Cycle Status: Active ; Vocabulary: SNOMED CT Disorder of prostate (BPH) (SNOMED CT :50304094 ) Name of Problem: Disorder of prostate (BPH) ; Recorder: GISELE LOPEZ RN; Confirmation: Confirmed ; Classification: Medical ; Code: [id number] ; Contributor System: PowerChart ; Last Updated: 09/01/2014 10:50 EST ; Life Cycle Date: 09/01/2014 ; Life Cycle Status: Active ; Vocabulary: SNOMED CT GERD (gastroesophageal reflux disease) (SNOMED CT :143643935 ) Name of Problem: GERD (gastroesophageal reflux disease) ; Recorder: DIANNA SHI RN; Confirmation: Confirmed ; Classification: Medical ; Code: [id number] ; Contributor System: PowerChart ; Last Updated: 12/02/2013 10:28 EDT ; Life Cycle Date: 12/02/2013 ; Life Cycle Status: Active ; Vocabulary: SNOMED CT High cholesterol (SNOMED CT :31457167 ) Name of Problem: High cholesterol ; Recorder: GISELE LOPEZ RN; Confirmation: Confirmed ; Classification: Medical ; Code: 21690442 ; Contributor System: PowerChart ; Last Updated: 09/01/2014 10:48 EST ; Life Cycle Date: 09/01/2014 ; Life Cycle Status: Active ; Vocabulary: SNOMED CT PAD (peripheral artery disease) (SNOMED CT :0949468640 ) Name of Problem: PAD (peripheral artery disease) ; Recorder: CHANG SEVILLA RN; Confirmation: Confirmed ; Classification: Medical ; Code: [id number] ; Contributor System: PowerChart ; Last Updated: 08/07/2014 17:12 EST ; Life Cycle Date: 08/07/2014 ; Life Cycle Status: Active ; Vocabulary: SNOMED CT Peripheral neuropathy (SNOMED CT :72799089 ) Name of Problem: Peripheral neuropathy ; Recorder: DIANNA SHI RN; Confirmation: Confirmed ; Classification: Medical ; Code: 87140823 ; Contributor System: PowerChart ; Last Updated: 12/02/2013 10:28 EDT ; Life Cycle Date: 12/02/2013 ; Life Cycle Status: Active ; Vocabulary: SNOMED CT Diagnoses(Active) Hypotension Date: 07/25/2021 ; Diagnosis Type: Reason For Visit ; Confirmation: Complaint of ; Clinical Dx: Hypotension ; Classification: Medical ; Clinical Service: Non-Specified ; Code: PNED ; Probability: 0 ; Diagnosis Code: [id number] ED Height and Weight Height Source : Stated Height Entry Format : [place] Height, Feet : 5 ft(Converted to: 152 cm, 60 Inch) Height, Inches : 2 Inch(Converted to: 0 ft 2 Inch, 5.08 cm) Clinical Height : 157.48 cm Weight Source, ED : Critical estimated dosing weight Weight Entry Format : [place] Weight, Pounds : 150 lb Clinical Dosing Weight : 68.18 kg Body Surface Area (BSA) : 1.69 m2 Body Mass Index : 27.5 kg/m2 (HI) [place] Body Weight (IBW) : 53.73 kg TAMMI DELCID RN - 07/25/2021 16:12 EST Electronically signed by [facility] Conversion [employer] at 11/17/2022 9:28 AM CDT documented in this encounter Plan of Treatment Not on file documented as of this encounter Visit Diagnoses Not on filedocumented in this encounter Care Teams Cryptological Technician Relationship Specialty Start Date End Date Colby Quan MD [address] [facility] [address] [place] [id number] PCP - General Family Medicine 05/09/23 documented as of this encounter
--- NOTE | 2025-04-06 19:38 | HMH.EDGENADL ---
Discharge Plan Disposition Patient Disposition: Home, Self-Care Condition: Good Prescriptions Prescriptions: New azithromycin 250 mg tablet 250 mg PO DAILY 4 Days Qty: 4 0RF Rx Instructions: start on day 2 of therapy cefpodoxime 200 mg tablet 200 mg PO BID 5 Days Qty: 10 0RF Rx Instructions: must administer with a meal/food No Action apixaban [Eliquis] 5 mg tablet 5 mg PO BID omeprazole 20 mg capsule,delayed release(DR/EC) 20 mg PO DAILY Patient Comments: TAKE ONE CAPSULE BY MOUTH EVERY DAY 30 minutes BEFORE morning meal carvedilol 6.25 mg tablet 6.25 mg PO BID Rx Instructions: Take with food amlodipine 5 mg tablet 5 mg PO DAILY albuterol sulfate 90 mcg/actuation HFA aerosol inhaler 2 puff inhalation Q6H PRN (Reason: copd) Patient Comments: INHALE 2 PUFFS BY MOUTH EVERY 6 HOURS SHAKE WELL BEFORE USE Jardiance 10 mg tablet 10 mg PO DAILY Patient Comments: TAKE ONE TABLET BY MOUTH EVERY DAY ketoconazole 2 % cream 1 applic topical BID Qty: 30 2RF lisinopril 5 mg tablet 5 mg PO DAILY Patient Comments: TAKE ONE TABLET BY MOUTH EVERY DAY (DME) Diabetic Shoes (DME) Misc See Rx Instructions .ROUTE .MEDSUPPLY Qty: 1 0RF Rx Instructions: [facility] Please dispense one (1) pair of Diabetic shoes with inserts finasteride [Proscar] 5 mg tablet 5 mg PO DAILY Qty: 90 3RF metformin 500 MG tablet extended release 24 hr 1,000 mg PO DAILY ferrous sulfate [FeroSul] 325 mg (65 mg iron) tablet 325 mg PO DAILY famotidine 40 mg tablet 40 mg PO HS clopidogrel 75 mg tablet 75 mg PO DAILY nitroglycerin 0.4 mg tablet, sublingual 0.4 mg sublingual Q5MINP PRN (Reason: chest pain) Rx Instructions: do not exceed 3 doses per episode atorvastatin 80 MG tablet 80 mg PO HS gabapentin 300 mg capsule 300 mg PO BID [id number] 1 EACH blister with device 1 puff IH DAILY tamsulosin 0.4 mg capsule 0.8 mg PO HS spironolactone 50 mg tablet 50 mg PO DAILY Qty: 30 0RF loperamide [Imodium A-D] 2 mg capsule 2 mg PO QID PRN (Reason: loose stool) Qty: 1 0RF Referrals Follow up/Referrals: Colby Quan MD [Primary Care Provider, Medical] - See instructions Activity Restrictions/Add. Instructions Additional Instructions/Restrictions: Take the antibiotics as prescribed. Return to the emergency department for any acute or worsening shortness of breath. Clinical Impressions Clinical Impression: COVID, Pneumonia Instructions Patient Instructions: Cough Print Language Print Language: Kinyarwanda Discharge ED Provider: Roro Macias General Adult HPI General Chief complaint: Cough Stated complaint: cough,SOA,whezzy Time Seen by Provider: 04/06/25 19:26 Mode of Arrival: Ambulatory Source of Information: Patient Description of Symptoms (Recalled from ER Triage Doc. by RN): Pt reports having cough, wheezing, SOA, mild CP which began 04/05/2025. Pt reports pain 11/07 and states it comes and goes. Pt also reports having a heart cath on 04/03/2025. History of Present Illness HPI narrative: Patient is an 84-year-old male with past medical history of coronary artery disease who presented to the emergency department with fatigue for the last few days. Patient states that he has not had any falls at home. Has had intermittent chest pain but no shortness of breath. Patient has been coughing. Patient tried a nebulizer treatment at home but states that he is unsure why he has them and does not have a history of COPD. Patient is not a current smoker. Patient denies any abdominal pain nausea vomiting diarrhea. Daughter at bedside states that patient has just been more fatigued than usual and they went out to eat on Monday. Related Data Home Medications ?Medication ?Instructions ?Recorded ?Confirmed atorvastatin 80 mg tablet 80 mg PO HS 09/10/17 04/02/25 apixaban 5 mg tablet (Eliquis) 5 mg PO BID 01/29/18 04/02/25 gabapentin 300 mg capsule 300 mg PO BID 01/20/20 04/02/25 fluticasone fur. 100 mcg-umeclid 1 puff inhalation DAILY 05/15/20 04/02/25 62.5 mcg-vilant 25 mcg inhalat.powder metformin 500 mg tablet,extended 1,000 mg PO DAILY 11/29/20 04/02/25 release 24 hr Held on 04/02/25. Instructions: Resume on 04/04/25. famotidine 40 mg tablet 40 mg PO HS 05/07/23 04/02/25 ferrous sulfate 325 mg (65 mg 325 mg PO DAILY 05/07/23 04/02/25 iron) tablet (FeroSul) lisinopril 5 mg tablet 5 mg PO DAILY 08/09/23 04/02/25 omeprazole 20 mg capsule,delayed 20 mg PO DAILY 11/08/23 04/02/25 release clopidogrel 75 mg tablet 75 mg PO DAILY 02/04/24 04/02/25 nitroglycerin 0.4 mg sublingual 0.4 mg sublingual Q5MINP PRN chest 02/05/24 04/02/25 tablet pain amlodipine 5 mg tablet 5 mg PO DAILY 03/25/24 04/02/25 carvedilol 6.25 mg tablet 6.25 mg PO BID 03/25/24 04/02/25 tamsulosin 0.4 mg capsule 0.8 mg PO HS 07/24/24 04/02/25 albuterol sulfate 90 mcg/actuation 2 puff inhalation Q6H PRN copd 09/16/24 04/02/25 aerosol inhaler empagliflozin 10 mg tablet 10 mg PO DAILY 09/16/24 04/02/25 (Jardiance) Previous Rx's ?Medication ?Instructions ?Recorded spironolactone 50 mg tablet 50 mg PO DAILY #30 tabs 07/26/24 loperamide 2 mg capsule (Imodium 2 mg PO QID PRN loose stool #1 cap 09/24/24 A-D) ketoconazole 2 % topical cream 1 applic topical BID athletes foot 12/17/24 #30 grams finasteride 5 mg tablet (Proscar) 5 mg PO DAILY #90 tabs 03/03/25 Diabetic Shoes (DME) #1 ea 03/04/25 azithromycin 250 mg tablet 250 mg PO DAILY 4 days #4 tabs 04/06/25 cefpodoxime 200 mg tablet 200 mg PO BID 5 days #10 tabs 04/06/25 Allergies Allergy/AdvReac Type Severity Reaction Status Date / Time Penicillins Allergy Verified 03/24/25 10:54 [facility] Disclaimer: The information contained in this section may have been updated after the patient was seen, as this information can be updated by other users. Medical History History of arthritis History of kidney disease History of heart attack History of hypertension History of diabetes mellitus, type I History of CHF (congestive heart failure) History of anxiety History and physical examination, immigration Carotid stenosis Transient neurological symptoms Pulmonary edema Acute exacerbation of CHF (congestive heart failure) Acute on chronic respiratory failure with hypoxia and hypercapnia Acute respiratory distress Acute exacerbation of chronic obstructive pulmonary disease Elevated d-dimer Callus of foot Balanitis BPH loc w urin obs/LUTS Urine retention GERD (gastroesophageal reflux disease) PAD (peripheral artery disease) Presence of cardiac pacemaker History of peptic ulcer Anemia Overweight (BMI 25.0-29.9) Onychoincurvatum Onychogryphosis Onychodystrophy Diabetic foot TIA (transient ischemic attack) Transient cerebral ischemia A-fib Stroke-like symptoms Pulmonary nodule Diastolic dysfunction DM2 (diabetes mellitus, type 2) Chronic a-fib Left lower lobe pneumonia COVID Pneumonia due to COVID-19 virus Positive blood cultures Respiratory failure with hypoxia Closed right fibular fracture SIRS (systemic inflammatory response syndrome) Heart attack History of left heart catheterization (LHC) Abnormal result of cardiovascular function study Tachy-gerry syndrome Dizziness Sinus pause group home current use 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 therapy HTN (hypertension) HLD (hyperlipidemia) RHONDA (renal artery stenosis) Dyspnea Edema Congestive heart failure COPD (chronic obstructive pulmonary disease) CAD (coronary artery disease) Surgical History History of heart artery stent S/P cardiac pacemaker procedure S/P cataract extraction History of cholecystectomy History of renal stent Family History Sister Breast cancer Son Diabetes Sister Leukemia Other Cancer Coronary artery disease Heart attack Heart disease Hypertension Stroke Social History Smoking Status: Former smoker tobacco type: cigarettes packs per day: 1 years smoked: 50 how long ago did patient quit smokin yrs ago second hand exposure: No alcohol intake: former counseling provided: none substance use type: denies use current occupational status: retired Travel in the last 8 weeks?: None household members: children housing: house marital status: number of children: 7 current occupational exposures/hazards: No caffeine: Yes Have you lived/traveled outside [place] in past 30 days?: No Contact w/someone who lives/traveled outside US past 30 days?: No Exposure to someone with infectious disease in past 14 days?: No Do you have a fever (greater than 100.4 F or 38 C)?: No Have you tested positive for COVID-19?: No Exposed to someone with COVID-19 in past 14 days?: No Do you have a sore throat?: No Do you have a cough?: No Do you have any weakness?: No Do you have any diarrhea?: No Are you experiencing any unusual bleeding?: No Do you have any muscle aches/pain?: No Do you have any abdominal pain?: No Are you experiencing loss of taste or smell?: No Other Medical History Have you received the Flu Vaccine for this season: No Have you received the Pneumonia Vaccine: No ROS Obtained: Yes All systems reviewed & no additional complaints except as documented and Yes Systems reviewed as appropriate & no additional complaints except as documented Physical Exam General General appearance: alert and in no apparent distress Head Head exam: atraumatic, normocephalic and normal inspection Eye Eye exam: Present normal appearance, PERRL and EOMI; Absent scleral icterus ENT ENT exam: Present normal exam and normal external ear exam Neck Neck exam: Present normal inspection and full ROM Chest Chest inspection: Present normal inspection and symmetric chest wall rise Respiratory Respiratory exam: Present normal lung sounds bilaterally; Absent respiratory distress or wheezes Cardiovascular Cardiovascular exam: Present regular rate, normal rhythm and normal heart sounds Abdominal Exam Abdominal exam: Present soft and distention; Absent tenderness, guarding or rebound Extremities Exam Extremities exam: Present normal inspection and full ROM Back Exam Back exam: Present normal inspection and full ROM Neurological Exam Neurological exam: Present alert and oriented X3 Psychiatric Psychiatric exam: Present normal affect and normal mood Skin Skin exam: Present warm and dry Medical Decision Making Medical Records Medical records reviewed: Yes I reviewed the patient's medical records. Screening: Per USPSTF and CDC recommendations, given the prevalence of disease in our region, it is our hospital?s policy to screen for HIV and viral Hepatitis for all patients aged 18 and over and those with ongoing risk factors. [place] Inquiry Pt receiving controlled substance: No Vital Signs: 04/06/25 19:26 04/06/25 21:00 04/06/25 21:30 Temperature 98.5 F Temperature Source Oral Pulse Rate 70 75 Pulse Rate [Left] 74 Respiratory Rate 16 12 18 Blood Pressure 167/74 H 186/82 H Blood Pressure [Right Arm] 151/65 H Blood Pressure Mean 105 116 Blood Pressure Mean [Right Arm] 93 Blood Pressure Source Blood Pressure Source [Right Arm] Automatic Cuff Blood Pressure Position Blood Pressure Position [Right Arm] Sitting 02 Sat by Pulse Oximetry 94 L 99 95 Oxygen Delivery Method Room Air 04/06/25 22:01 04/06/25 22:32 04/06/25 22:55 Temperature Temperature Source Pulse Rate 70 70 73 Pulse Rate [Left] Respiratory Rate 18 15 12 Blood Pressure 195/81 H 164/47 H 176/82 H Blood Pressure [Right Arm] Blood Pressure Mean 119 119 129 Blood Pressure Mean [Right Arm] Blood Pressure Source Blood Pressure Source [Right Arm] Blood Pressure Position Blood Pressure Position [Right Arm] 02 Sat by Pulse Oximetry 95 98 96 Oxygen Delivery Method 04/06/25 23:16 Temperature 98.9 F Temperature Source Oral Pulse Rate 75 Pulse Rate [Left] Respiratory Rate 16 Blood Pressure 170/69 H Blood Pressure [Right Arm] Blood Pressure Mean Blood Pressure Mean [Right Arm] Blood Pressure Source Automatic Cuff Blood Pressure Source [Right Arm] Blood Pressure Position Sitting Blood Pressure Position [Right Arm] 02 Sat by Pulse Oximetry Oxygen Delivery Method Room Air Lab Data Lab results reviewed: Yes I reviewed the patient's lab results. Lab Results 04/06/25 19:25: SARS-CoV-2 (PCR) Detected A, Influenza Type A (PCR) Not detected, Influenza Type B (PCR) Not detected, RSV (PCR) Not detected, Rhinovirus (PCR) Not detected 04/06/25 19:55: WBC 7.3, RBC 3.97 L, Hgb 11.5 L, Hct 36.7 L, MCV 92.4, MCH 29.0, MCHC 31.3 L, RDW 16.2, Plt Count 126 L, MPV 12.0 H, Neut % (Auto) 68.6, Lymph % (Auto) 17.7, [place] % (Auto) 11.9 H, Eos % (Auto) 1.1, Baso % (Auto) 0.3, Neut # (Auto) 5.0, Lymph # (Auto) 1.3, [place] # (Auto) 0.9, Eos # (Auto) 0.1, Baso # (Auto) 0.0, Sodium 138, Potassium 4.7, Chloride 107, Carbon Dioxide 24, Anion Gap 11.7, BUN 22 H, Creatinine 1.80 H, Estimated Creat Clear 33, Estimated GFR 36 L, Est GFR ( Amer) 44 L, Glucose 150 H, Calcium 9.6, Total Bilirubin 1.6 H, AST 30, ALT 18, Alkaline Phosphatase 80, Troponin I 0.02, Total Protein 7.3, Albumin 4.4, Globulin 2.9, Albumin/Globulin Ratio 1.5, Lipase 108 04/06/25 19:57: VBG pH 7.32, VBG pCO2 49.5, VBG pO2 26.8 L, VBG HCO3 24.9, VBG Total CO2 26.4, VBG O2 Saturation 41.9 L, VBG Base Excess -1.2, VBG Lactic Acid 2.4 H 04/06/25 22:27: Urine Color Yellow, Urine Appearance Clear, Urine pH 6.0, Ur Specific [place] 1.020, Urine Protein 1+ A, Urine Glucose (UA) 3+, Urine Ketones Trace, Urine Blood Trace-l, Urine Nitrate Negative, Urine Bilirubin Negative, Urine Urobilinogen 0.2, Ur Leukocyte Esterase Trace, Urine RBC Occasional, Urine WBC 5-10, Ur Squamous Epith Cells Occasional, Urine Bacteria Trace 04/06/25 22:42: Troponin I 0.02 04/06/25 19:55 04/06/25 19:55 Orders (Tests/Meds): ED MEDICATIONS Discontinued Medications Generic Name Dose Route Start Last Admin Trade Name Jeramy PRN Reason Stop Dose Admin Azithromycin 500 mg 04/06/25 22:31 04/06/25 22:39 Azithromycin 250mg Tablet PO 04/06/25 22:32 500 mg ONCE ONE Administration Ceftriaxone Sodium 2 gm/ 100 mls @ 200 mls/hr 04/06/25 22:32 04/06/25 23:20 Sodium Chloride IV 04/06/25 23:01 Infused ONCE ONE Infusion ORDERS Category Date Time Status CXR --portable [XR chest portable] Stat Exams 04/06/25 19:57 Completed CBC w/Auto Diff [Complete Blood Count Auto Diff] Stat Lab 04/06/25 19:55 Completed CMP [Comprehensive Metabolic Panel] Stat Lab 04/06/25 19:55 Completed Lipase Stat Lab 04/06/25 19:55 Completed Mini Respiratory Panel Stat Lab 04/06/25 19:25 Completed Trop I [Troponin I] Stat Lab 04/06/25 19:55 Completed Troponin I Q3H Lab 04/06/25 22:42 Completed Troponin I Q3H Lab 04/07/25 02:00 Ordered UA [Urinalysis and Microscopic] Stat Lab 04/06/25 22:27 Completed Urine Culture Stat Micro 04/06/25 22:27 Received VBG [Venous Blood Gas] Stat RT 04/06/25 19:57 Completed Medical Decision Narrative: Patient is an 84-year-old male with past medical history of coronary artery disease who presented to the emergency department with cough and generalized fatigue for the last 3 days. On arrival, patient was hemodynamically stable, vital signs were otherwise unremarkable. Patient was not tachycardic patient was not hypoxic. Differential includes but not limited to: ACS/AR, pneumothorax, pleural effusion, pneumonia, viral syndrome, electrolyte abnormalities, amongst others. Labs were reviewed and interpreted by myself: CBC showed no leukocytosis, hemoglobin was stable. VBG was unremarkable. Lactate mildly elevated at 2.4. Initial troponin 0.02. CMP was unremarkable with creatinine at patient's baseline. UA showed no evidence of infection. EKG was reviewed and interpreted by myself and showed paced rhythm no acute ST or T wave changes concerning for ischemia Patient's respiratory panel was positive for COVID. Chest x-ray on my review showed no acute focal consolidation, pneumothorax, pleural effusion or other acute cardiopulmonary process however on radiology read, they read possible right lower lobe consolidation. At this time I elected to give patient ceftriaxone and azithromycin in the emergency department. Patient was saturating appropriately on room air, patient second troponin was 0.02. Patient was sent home with cefpodoxime and azithromycin for community-acquired pneumonia and return precautions were discussed. Critical Care Critical Care Time Critical Care Time: No
--- NOTE | 2025-04-06 19:57 | ECG_ITS ---
APPROVED REPORT Exam: Resting ECG HR:70 bpm ECG Measurements Heart Rate 70 AXES QRSd 148 QRS 262 QT 434 T 78 QTc 454 Conclusion ELECTRONIC VENTRICULAR PACEMAKER ABNORMAL RHYTHM ECG UNCONFIRMED REPORT Electronically signed by : RASHAUN BURNETTE, 04/07/2025 23:03:38
--- NOTE | 2025-04-06 19:57 | XR_ITS ---
PROCEDURE INFORMATION: Exam: XR Chest Exam date and time: 04/06/2025 8:18 PM Age: 84 years old Clinical indication: Shortness of breath TECHNIQUE: Imaging protocol: Radiologic exam of the chest. Views: 1 view. COMPARISON: CR XR CHEST PORTABLE 07/23/2024 8:26 PM FINDINGS: Tubes, catheters and devices: Cardiac pacemaker with a generator overlying the upper left chest. Lungs: New increased density within the left base in the retrocardiac region with loss of definition of the left hemidiaphragm and costophrenic angle. No other change in the appearance of the lungs appreciated. The approximate 2 cm density overlying the lateral left chest at the level of the posterolateral 6th rib is stable and was described previously as a subpleural lipoma. Pleural spaces: Possible left pleural effusion. Heart/Mediastinum: Unremarkable. No cardiomegaly. Vasculature: Atherosclerotic plaquing aortic arch. Surgical clips left neck suggesting a previous endarterectomy. Bones/joints: Unremarkable. IMPRESSION: New left basilar density with loss of definition of the left hemidiaphragm suggesting left lower lobe atelectasis/consolidation with possibly a left pleural effusion. No other change identified. No significant central vascular congestion appreciated.
[2025-04-06 20:01] LABS: VBG HCO3 24.9 mmol/L (23-30); VBG PCO2 49.5 mmol/L (35-51); VBG PH 7.32 mmol/L (7.31-7.41); VBG PO2 26.8 mmol/L (28-40)
[2025-04-06 20:03] LABS: Lactate Venous 2.4 mmol/L (0.4-2.0)
[2025-04-06 20:05] LABS: Influenza A, PCR Not Detected (NotDetected); Influenza B, PCR Not Detected (NotDetected)
[2025-04-06 20:05] LABS: Hematocrit 36.7 % (42.0-52.0); Hemoglobin 11.5 g/dL (14.1-18.0); Immature Granulocytes % 0.4 %; Mean Corpuscular HGB Conc 31.3 g/dL (31.8-35.4); Mean Corpuscular Hemoglobin 29.0 pg (27.0-31.2); Mean Corpuscular Volume 92.4 fl (80-94); Nucleated Red Blood Cells % 0 %; Platelet Count 126 K/mm3 (142-424); Red Blood Count 3.97 M/mm3 (4.60-6.20); Red Cell Distribution Width-SD 54.4 fL; White Blood Count 7.3 K/mm3 (4.8-10.8)
[2025-04-06 20:11] LABS: Albumin Level 4.4 g/dl (3.5-5.0); Chloride 107 mmol/L (98-107); Potassium 4.7 mmoL/L (3.5-5.1); Sodium 138 mmol/L (136-145)
[2025-04-06 20:13] LABS: Alanine Aminotransferase 18 U/L (12-78); Aspartate Amino Transferase 30 U/L (17-59); Blood Urea Nitrogen 22 mg/dl (9-20); Creatinine Clearance Estimated 33 mL/min (50-200); Creatinine,Serum 1.80 mg/dl (0.66-1.25); Estimated Glomerular Filt Rate 36 ml/min (>60); GFR (African American) 44 ML/MIN (>60)
[2025-04-06 20:14] LABS: Albumin/Globulin Ratio 1.5 (1.1-1.8); Alkaline Phosphatase 80 U/L (38-126); Anion Gap 11.7 mEq/L (5-15); Bilirubin,Total 1.6 mg/dl (0.2-1.3); Calcium 9.6 mg/dl (8.4-10.2); Carbon Dioxide 24 mmol/L (22.0-30.0); Globulin 2.9 g/dL (1.3-3.2); Glucose 150 mg/dl (74-100); Lipase 108 U/L (23-300); Total Protein,Serum 7.3 g/dl (6.3-8.2)
[2025-04-06 20:25] LABS: Troponin I 0.02 ng/ml (0.00-0.034)
[2025-04-06 21:24] LABS: Coronavirus 19, PCR Detected (NotDetected)
[2025-04-06 22:33] LABS: Microscopic, Urine URINE MICROSCOPIC (MICROSCOPIC)
[2025-04-06 22:34] LABS: Bilirubin,Urine Negative (Negative); Color,Urine YELLOW (Yellow); Glucose,Urine (UA) 3+ (Negative); Ketones,Urine TRACE (Negative); Leukocyte Esterase,Urine TRACE (Negative); PH,Urine 6.0 (5.0-8.5); Protein,Urine 1+ (Negative); Specific Gravity, Urine 1.020 (1.005-1.030); Urobilinogen,Urine 0.2 EU/dl (0.2)
[2025-04-06] MEDS: AZITHROMYCIN 250MG TABLET 500 MG PO (22:39)
[2025-04-06 22:50] LABS: Bacteria,Urine Trace /lpf; RBC,Urine Occasional #/hpf (0-3); Squamous Epithelial Cell,Urine Occasional #/hpf (0-5)
[2025-04-06 23:11] LABS: Troponin I 0.02 ng/ml (0.00-0.034)
[2025-04-07 00:03] LABS: Reflex Lactic Add Lactic Reflex
== END 2025-04-06 23:25 | disposition home or self-care (01) ==
PROVIDERS: Emergency Provider Student in an Organized Health Care Education/Training Program; PCP Family Medicine
DX: U07.1 COVID-19 (principal); J18.9 Pneumonia, unspecified organism; E78.5 Hyperlipidemia, unspecified; I11.0 Hypertensive heart disease with heart failure; I25.10 Atherosclerotic heart disease of native coronary artery without angina pectoris; I50.9 Heart failure, unspecified
CPT/HCPCS: 71045; 80053; 81001; 82803; 83690; 84484; 85025; 87086; 87631; 93005; 96365; 99285; J0696

== ENCOUNTER 2025-07-13 14:05 | Inpatient (IN) | payer MEDICARE, OTHER, SELFPAY ==
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
--- OUTSIDE RECORDS SUMMARY | 2024-03-11 04:00 | XMS_ITS ---
Author Organization [facility] Address [address] [address] [place] [id number] Care Team Providers Care Asbestos Shingle Roofer Name Role Phone Colby Quan Primary Care Provider REASON FOR VISIT 4 Month Check Up Encounters Encounter Location Date Provider Diagnosis [facility] [address] [place] [phone] 03/11/2024 Colby Quan Plan Of Treatment Next Appt Details Provider Name:Colby Bolaños ry, 12/31/2025 11:45:00 AM, [address], [address], [place], [phone], Progress Notes * Kasandra BRITTOB: [birth year]40 (84 yo M)Acc No.[id number]:03/11/2024 Progress Notes Patient: Guevara EGAN Provider: Leonel Quan M.D. :1940 A ge:83 Y S ex:Male Date:03/11/2024 Address:[address], [id number] Subjective: * Chief Complaints: * 1 . 4 Month Check Up. * Medical History: Objective: * Vitals: Assessment: Plan: * Treatment: * Images: Billing Information: * Visit Code: * Procedure Codes: * Electronic signature of May Quan MD on 07/13/2025 at 02:24 PM EST Sign off status: Pending * Provider: Leonel Quan M.D. Date: 0 03/11/2024 Generated for Cedric bustamante/Vadim/Cade on: 1 09/13/2024 02:24 PM EST
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
--- OUTSIDE RECORDS SUMMARY | 2024-10-24 05:00 | XMS_ITS ---
Author Organization [facility] Address [address] [facility] [address] [place] [phone] Care Team Providers Care Director Women Name Role Phone Colby Quan Primary Care Provider [phone] REASON FOR VISIT 2.5 months Encounters Encounter Location Date Provider Diagnosis [facility] [address] [place] [phone] 10/24/2024 Colby Quan Plan Of Treatment Next Appt Details Provider Name:Colby Bolaños ry, 12/31/2025 11:45:00 AM, [address], [address], [place], [phone], Progress Notes * Kasandra BRITTOB: [birth year] (84 yo M)Acc No.[id number]:10/24/2024 Progress Notes Patient: Guevara EGAN Provider: Leonel Quan M.D. :1940 A ge:84 Y S ex:Male Date:10/24/2024 Address:[address], [id number] Subjective: * Chief Complaints: * 1 . 2.5 months. * Medical History: Objective: * Vitals: Assessment: Plan: * Treatment: * Images: Billing Information: * Visit Code: * Procedure Codes: * Electronic signature of May Quan MD on 07/13/2025 at 02:25 PM EST Sign off status: Pending * Provider: Leonel Quan M.D. Date: 0 10/24/2024 Generated for Cedric bustamante/Vadim/Cade on: 1 09/13/2024 02:25 PM EST
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
[2025-07-13] VITALS (11 sets, daily range): BP systolic 135–165; BP diastolic 67–93; PULSE 66–95; RESP 16–20; TEMP 36.9–38.8; O2SAT 84–99; BMI 27.4; BMI 26.2
--- NOTE | 2025-07-13 14:19 | XR_ITS ---
PROCEDURE INFORMATION: Exam: XR Chest Exam date and time: 07/13/2025 2:47 PM Age: 84 years old Clinical indication: Shortness of breath; Additional info: SOB TECHNIQUE: Imaging protocol: Radiologic exam of the chest. Views: 1 view. COMPARISON: CR XR CHEST PORTABLE 04/06/2025 8:18 PM FINDINGS: Tubes, catheters and devices: Single lead left subclavian pacemaker, with lead tip projecting at the right ventricle. Lungs: Development of right lower lung field airspace disease. Development of mild streaky opacities in the left lower lung field. Pleural spaces: Unremarkable. No pleural effusion. No pneumothorax. Heart/Mediastinum: Borderline enlargement of the cardiac silhouette. Vasculature: Atherosclerosis. Bones/joints: Degenerative changes of the spine. Osteoarthritis of the left acromioclavicular joint. IMPRESSION: 1. Development of right lower lobe airspace disease, typical of pneumonia. 2. Development of mild streaky opacities in the left lower lung field that may represent atelectasis and/or pneumonia. 3. Borderline enlargement of the cardiac silhouette. 4. Atherosclerosis. 5. Additional chronic/nonemergent findings as detailed above.
--- NOTE | 2025-07-13 14:21 | HMH.EDGENADL ---
Discharge Plan Disposition Chief Complaint: Shortness of Breath/Dyspnea Prescriptions Prescriptions: No Action apixaban [Eliquis] 5 mg tablet 5 mg PO BID omeprazole 20 mg capsule,delayed release(DR/EC) 20 mg PO DAILY Patient Comments: TAKE ONE CAPSULE BY MOUTH EVERY DAY 30 minutes BEFORE morning meal carvedilol 6.25 mg tablet 6.25 mg PO BID Rx Instructions: Take with food amlodipine 5 mg tablet 5 mg PO DAILY albuterol sulfate 90 mcg/actuation HFA aerosol inhaler 2 puff inhalation Q6H PRN (Reason: copd) Patient Comments: INHALE 2 PUFFS BY MOUTH EVERY 6 HOURS SHAKE WELL BEFORE USE Jardiance 10 mg tablet 10 mg PO DAILY Patient Comments: TAKE ONE TABLET BY MOUTH EVERY DAY ketoconazole 2 % cream 1 applic topical BID Qty: 30 2RF (DME) Diabetic Shoes (DME) Misc See Rx Instructions .ROUTE .MEDSUPPLY Qty: 1 0RF Rx Instructions: [facility] Please dispense one (1) pair of Diabetic shoes with inserts lisinopril 5 mg tablet 5 mg PO DAILY Patient Comments: TAKE ONE TABLET BY MOUTH EVERY DAY finasteride [Proscar] 5 mg tablet 5 mg PO DAILY Qty: 90 3RF metformin 500 MG tablet extended release 24 hr 1,000 mg PO DAILY ferrous sulfate [FeroSul] 325 mg (65 mg iron) tablet 325 mg PO DAILY famotidine 40 mg tablet 40 mg PO HS clopidogrel 75 mg tablet 75 mg PO DAILY nitroglycerin 0.4 mg tablet, sublingual 0.4 mg sublingual Q5MINP PRN (Reason: chest pain) Rx Instructions: do not exceed 3 doses per episode azithromycin 250 mg tablet 250 mg PO DAILY 4 Days Qty: 4 0RF Rx Instructions: start on day 2 of therapy cefpodoxime 200 mg tablet 200 mg PO BID 5 Days Qty: 10 0RF Rx Instructions: must administer with a meal/food atorvastatin 80 MG tablet 80 mg PO HS gabapentin 300 mg capsule 300 mg PO BID pcbahirxuph-rtjiglobx-prrzzcau 1 EACH blister with device 1 puff IH DAILY tamsulosin 0.4 mg capsule 0.8 mg PO HS spironolactone 50 mg tablet 50 mg PO DAILY Qty: 30 0RF loperamide [Imodium A-D] 2 mg capsule 2 mg PO QID PRN (Reason: loose stool) Qty: 1 0RF Referrals Follow up/Referrals: Colby Quan MD [Primary Care Provider, Medical] - See instructions Print Language Print Language: Bengali Discharge ED Provider: Randy Rodrigues General Adult HPI General Chief complaint: Shortness of Breath/Dyspnea Stated complaint: Wheezing, SOA, runny nose, fatigue, not eating Time Seen by Provider: 07/13/25 14:14 Mode of Arrival: Wheelchair Source of Information: Patient Description of Symptoms (Recalled from ER Triage Doc. by RN): Patient states he has been feeling tired, weakness, intermittent confusion for the last couple of days. States patient wears oxygen as needed at home and has been wearing all the time lately. History of Present Illness HPI narrative: Increasing oxygen requirement decreasing oral tolerance as of the past several days. States he feels like she may have the flu Related Data Home Medications ?Medication ?Instructions ?Recorded ?Confirmed atorvastatin 80 mg tablet 80 mg PO HS 09/10/17 06/18/25 apixaban 5 mg tablet (Eliquis) 5 mg PO BID 01/29/18 06/18/25 gabapentin 300 mg capsule 300 mg PO BID 01/20/20 06/18/25 fluticasone fur. 100 mcg-umeclid 1 puff inhalation DAILY 05/15/20 06/18/25 62.5 mcg-vilant 25 mcg inhalat.powder metformin 500 mg tablet,extended 1,000 mg PO DAILY 11/29/20 06/18/25 release 24 hr Held on 04/02/25. Instructions: Resume on 04/04/25. famotidine 40 mg tablet 40 mg PO HS 05/07/23 06/18/25 ferrous sulfate 325 mg (65 mg 325 mg PO DAILY 05/07/23 06/18/25 iron) tablet (FeroSul) lisinopril 5 mg tablet 5 mg PO DAILY 08/09/23 06/18/25 omeprazole 20 mg capsule,delayed 20 mg PO DAILY 11/08/23 06/18/25 release clopidogrel 75 mg tablet 75 mg PO DAILY 02/04/24 06/18/25 nitroglycerin 0.4 mg sublingual 0.4 mg sublingual Q5MINP PRN chest 02/05/24 06/18/25 tablet pain amlodipine 5 mg tablet 5 mg PO DAILY 03/25/24 06/18/25 carvedilol 6.25 mg tablet 6.25 mg PO BID 03/25/24 06/18/25 tamsulosin 0.4 mg capsule 0.8 mg PO HS 07/24/24 06/18/25 albuterol sulfate 90 mcg/actuation 2 puff inhalation Q6H PRN copd 09/16/24 06/18/25 aerosol inhaler empagliflozin 10 mg tablet 10 mg PO DAILY 09/16/24 06/18/25 (Jardiance) Previous Rx's ?Medication ?Instructions ?Recorded spironolactone 50 mg tablet 50 mg PO DAILY #30 tabs 07/26/24 loperamide 2 mg capsule (Imodium 2 mg PO QID PRN loose stool #1 cap 09/24/24 A-D) ketoconazole 2 % topical cream 1 applic topical BID athletes foot 12/17/24 #30 grams finasteride 5 mg tablet (Proscar) 5 mg PO DAILY #90 tabs 03/03/25 azithromycin 250 mg tablet 250 mg PO DAILY 4 days #4 tabs 04/06/25 cefpodoxime 200 mg tablet 200 mg PO BID 5 days #10 tabs 04/06/25 Diabetic Shoes (DME) #1 ea 06/18/25 Allergies Allergy/AdvReac Type Severity Reaction Status Date / Time Penicillins Allergy Unknown Verified 06/18/25 13:19 allergy reaction [facility] Disclaimer: The information contained in this section may have been updated after the patient was seen, as this information can be updated by other users. 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 History of arthritis History of kidney disease History of heart attack History of hypertension History of diabetes mellitus, type I History of CHF (congestive heart failure) History of anxiety History and physical examination, immigration Carotid stenosis Transient neurological symptoms Pulmonary edema Acute exacerbation of CHF (congestive heart failure) Acute on chronic respiratory failure with hypoxia and hypercapnia Acute respiratory distress Acute exacerbation of chronic obstructive pulmonary disease Elevated d-dimer Callus of foot Balanitis BPH loc w urin obs/LUTS Urine retention GERD (gastroesophageal reflux disease) PAD (peripheral artery disease) Presence of cardiac pacemaker History of peptic ulcer Anemia Overweight (BMI 25.0-29.9) Onychoincurvatum Onychogryphosis Onychodystrophy Diabetic foot TIA (transient ischemic attack) Transient cerebral ischemia A-fib Stroke-like symptoms Pulmonary nodule Diastolic dysfunction DM2 (diabetes mellitus, type 2) Chronic a-fib Left lower lobe pneumonia COVID Pneumonia due to COVID-19 virus Positive blood cultures Respiratory failure with hypoxia Closed right fibular fracture SIRS (systemic inflammatory response syndrome) Heart attack History of left heart catheterization (LHC) Abnormal result of cardiovascular function study Tachy-gerry syndrome Dizziness Sinus pause joint 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 use 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 therapy HTN (hypertension) HLD (hyperlipidemia) RHONDA (renal artery stenosis) Dyspnea Edema Congestive heart failure COPD (chronic obstructive pulmonary disease) CAD (coronary artery disease) Surgical History History of heart artery stent S/P cardiac pacemaker procedure S/P cataract extraction History of cholecystectomy History of renal stent Family History Sister Breast cancer Son Diabetes Sister Leukemia Other Cancer Coronary artery disease Heart attack Heart disease Hypertension Stroke Social History Smoking Status: Former smoker tobacco type: cigarettes packs per day: 1 years smoked: 50 how long ago did patient quit smokin yrs ago second hand exposure: No alcohol intake: former counseling provided: none substance use type: denies use current occupational status: retired Travel in the last 8 weeks?: None household members: children housing: house marital status: number of children: 7 current occupational exposures/hazards: No caffeine: Yes Have you lived/traveled outside [place] in past 30 days?: No Contact w/someone who lives/traveled outside US past 30 days?: No Exposure to someone with infectious disease in past 14 days?: No Do you have a fever (greater than 100.4 F or 38 C)?: No Have you tested positive for COVID-19?: No Exposed to someone with COVID-19 in past 14 days?: No Do you have a sore throat?: No Do you have a cough?: No Do you have any weakness?: No Do you have any diarrhea?: No Are you experiencing any unusual bleeding?: No Do you have any muscle aches/pain?: No Do you have any abdominal pain?: No Are you experiencing loss of taste or smell?: No Other Medical History Have you received the Flu Vaccine for this season: No Have you received the Pneumonia Vaccine: No ROS Obtained: Yes Systems reviewed as appropriate & no additional complaints except as documented Physical Exam General General appearance: alert Head Head exam: atraumatic Eye Eye exam: Present normal appearance ENT ENT exam: Present normal exam Neck Neck exam: Present normal inspection Chest Chest inspection: Present normal inspection Respiratory Respiratory exam: Present other (Diminished on the left) Cardiovascular Cardiovascular exam: Present regular rate Abdominal Exam Abdominal exam: Present soft Extremities Exam Extremities exam: Present normal inspection and other (No unilateral swelling or significant edema) Neurological Exam Neurological exam: Present alert and oriented X3 Psychiatric Psychiatric exam: Present normal affect Skin Skin exam: Present warm and dry Medical Decision Making Medical Records Screening: Per USPSTF and CDC recommendations, given the prevalence of disease in our region, it is our hospital?s policy to screen for HIV and viral Hepatitis for all patients aged 18 and over and those with ongoing risk factors. [place] Inquiry Pt receiving controlled substance: No Vital Signs: 07/13/25 14:15 07/13/25 14:26 07/13/25 14:30 Temperature 98.9 F Temperature Source Oral Pulse Rate 95 H 78 Pulse Rate [Right Brachial] 71 Respiratory Rate 18 Blood Pressure 144/70 H 143/74 H Blood Pressure [Right Arm] 165/80 H Blood Pressure Mean [Right Arm] 108 Blood Pressure Source [Right Arm] Automatic Cuff Blood Pressure Position [Right Arm] Sitting 02 Sat by Pulse Oximetry 84 L 95 98 Oxygen Delivery Method Room Air Nasal Cannula Nasal Cannula Oxygen Flow Rate (LPM) 2 2 07/13/25 15:00 Temperature Temperature Source Pulse Rate 86 Pulse Rate [Right Brachial] Respiratory Rate Blood Pressure 155/86 H Blood Pressure [Right Arm] Blood Pressure Mean [Right Arm] Blood Pressure Source [Right Arm] Blood Pressure Position [Right Arm] 02 Sat by Pulse Oximetry 99 Oxygen Delivery Method Room Air T-Piece Oxygen Flow Rate (LPM) Lab Data Lab Results 07/13/25 14:27: WBC 13.5 H, RBC 3.98 L, Hgb 11.3 L, Hct 36.7 L, MCV 92.2, MCH 28.4, MCHC 30.8 L, RDW 15.6, Plt Count 242, MPV 12.1 H, Neut % (Auto) 84.1 H, Lymph % (Auto) 5.9 L, Pondera % (Auto) 9.6 H, Eos % (Auto) 0.0 L, Baso % (Auto) 0.1, Neut # (Auto) 11.4 H, Lymph # (Auto) 0.8, Pondera # (Auto) 1.3 H, Eos # (Auto) 0.0, Baso # (Auto) 0.0, VBG pH 7.31, VBG pCO2 43.3, VBG pO2 46.0 H, VBG HCO3 21.4 L, VBG Total CO2 22.7 L, VBG O2 Saturation 76.0 H, VBG Base Excess -4.9 L, VBG Lactic Acid 2.9 H, Sodium 135 L, Potassium 4.1, Chloride 104, Carbon Dioxide 22, Anion Gap 13.1, BUN 23 H, Creatinine 1.80 H, Estimated Creat Clear 33, Estimated GFR 36 L, Est GFR ( Amer) 44 L, Glucose 140 H, Calcium 8.6, Magnesium 2.0, Total Bilirubin 1.5 H, AST 67 H, ALT 46, Alkaline Phosphatase 81, Troponin I 0.07 H, NT-Pro-B Natriuret Pep 36994 H, Total Protein 7.7, Albumin 4.0, Globulin 3.7 H, Albumin/Globulin Ratio 1.1 07/13/25 14:27 07/13/25 14:27 Orders (Tests/Meds): ED MEDICATIONS Generic Name Dose Route Start Last Admin Trade Name Freq PRN Reason Stop Dose Admin Ceftriaxone Sodium 1 gm/ 50 mls @ 100 mls/hr 07/13/25 15:00 07/13/25 15:22 Sodium Chloride IV 07/23/25 14:59 Infused Q24H DARA Infusion Azithromycin 500 mg/ Sodium 250 mls @ 250 mls/hr 07/13/25 15:00 07/13/25 15:27 Chloride IV 07/23/25 14:59 250 mls/hr Q24H DARA Administration Discontinued Medications Generic Name Dose Route Start Last Admin Trade Name Freq PRN Reason Stop Dose Admin Albuterol/Ipratropium 9 ml 07/13/25 14:20 07/13/25 14:39 Ipratropium/Albuterol 3 Ml Neb IH 07/13/25 14:21 9 ml ONCE ONE Administration Lactated Ringer's 500 mls @ 999 mls/hr 07/13/25 14:48 07/13/25 15:23 Lactated Ringer's 500ml IV 07/13/25 15:18 Infused .Q31M ONE Infusion ORDERS Category Date Time Status XR chest portable Stat Exams 07/13/25 14:19 Completed BNP [NT Pro Brain Natriuretic Pep.] Stat Lab 07/13/25 14:27 Completed CBC w/Auto Diff [Complete Blood Count Auto Diff] Stat Lab 07/13/25 14:27 Completed CMP [Comprehensive Metabolic Panel] Stat Lab 07/13/25 14:27 Completed Magnesium Stat Lab 07/13/25 14:27 Completed Mini Respiratory Panel Stat Lab 07/13/25 14:54 Received Troponin I Q3H Lab 07/13/25 17:30 Ordered Troponin I Q3H Lab 07/13/25 20:30 Ordered Troponin I Stat Lab 07/13/25 14:27 Completed Blood Culture Stat Micro 07/13/25 15:10 Received VBG [Venous Blood Gas] Stat RT 07/13/25 14:27 Completed Medical Decision Narrative: Patient is a significantly comorbid gentleman arrives with several days of shortness of breath and weakness and decreased oral intake his laboratory evaluation was significant for leukocytosis. He had a lactate elevation on his VBG concerning for possible sepsis. At this time ordered a 500 cc bolus. 30 mL/kg bolus was not ordered based on the patient's comorbidities. Based on exam and is diminished lung sounds on the left suspected pneumonia as his source thereby ordered ceftriaxone and azithromycin following cultures. Chest x-ray is notable for significant right-sided consolidation. Given this patient's increasing oxygen requirements as well as the patient's meeting of sepsis criteria discussed admission with hospital medicine who agreed to admit. Critical Care Critical Care Time Critical Care Time: No
--- OUTSIDE RECORDS SUMMARY | 2025-07-13 14:23 | XMS_ITS | Encounter Summary ---
Author Organization [employer] ([place], [place], [place], [place], [place]) Address [address] [place] [address] Care Team Providers Care Cloth Examiner Machine Name Role Phone Colby Quan MD Primary Care Provider + [phone] Encounter Details Date Type Department Care Team (Late st Contact Info) Description 07/26/2021 Transcribed Document [facility] [place] Family Medicine [address] [place] [id number] ProviderJames MD [address] [place] [id number] Social History Tobacco Use Types Packs/Day Years Used Date Smoking Tobacco: Never Assessed Sex and Gender Information Value Date Recorded Sex Assigned at Not on file Legal Sex Male 1:17 PM CDT Gender Identity Not on file Sexual Orientation Not on file documented as of this encounter Miscellaneous Notes * [employer] Conversion Note - Historical ProviderMD - 07/26/2021 9:05 AM CHILD PROTECTION SPECIALIST CR Chest 1 Vw Portable Ordered: 07/25/2021 Modified Reason for Exam: chest pain 07/25/2021 20:34 07/26/2021 09:05 (RADHA WATSON APRN) Reviewed by Provider, No further action required x1 Electronically signed by Tonja [facility] Conversion Outside Food Server Cerner at 11/17/2022 9:46 AM CDT documented in this encounter Plan of Treatment Not on file documented as of this encounter Visit Diagnoses Not on filedocumented in this encounter Care Teams Cloth Examiner Machine Relationship Specialty Start Date End Date Colby Quan MD [address] [facility] [address] [place] [id number] PCP - General Family Medicine 05/09/23 documented as of this encounter
--- OUTSIDE RECORDS SUMMARY | 2025-07-13 14:24 | XMS_ITS | Clinical Summary ---
Author Organization [employer] ([place], [place], [place], [place], [place]) Address [address] [place] [address] Care Team Providers Care Adult Care Manager Name Role Phone Colby Quan MD Primary Care Provider + [phone] Allergies Active Allergy Reactions Criticality Noted Date [...] Date Michael rded Speak language other than Russian at home Not on file 08/18/2023 Want [...] 2012 Insurance MEDICARE PART B ONLY [employer] [facility] Advance Directives For more information, please contact: [phone] Documents on File Type Date Recorded Patient Pinion Sorter Expl anation Power of Neuro Intensivist Physician 05/10/2023 1:34 PM POA 05/10/23 Care Teams Adult Care Manager Relationship Specialty Start Date End Date Colby Quan MD [address] [place] [facility] [address] [place] [id number] PCP - General Family Medicine 05/09/23
--- OUTSIDE RECORDS SUMMARY | 2025-07-13 14:24 | XMS_ITS | Encounter Summary ---
Author Organization [employer] ([place], [place], [place], [place], [place]) Address [address] [place] [address] Care Team Providers Care Kalsominer Name Role Phone Colby Quan MD Primary Care Provider + [phone] Encounter Details Date Type Department Care Team (Late st Contact Info) Description 07/25/2021 Transcribed Document [facility] Family Medicine [facility] [place] [address] ProviderJames MD [address] [place] [address] [id number] Social History Tobacco Use Types Packs/Day Years Used Date Smoking Tobacco: Never Assessed Sex and Gender Information Value Date Recorded Sex Assigned at Not on file Legal Sex Male 1:17 PM CDT Gender Identity Not on file Sexual Orientation Not on file documented as of this encounter Miscellaneous Notes * [employer] Conversion Note - Historical ProviderMD - 07/25/2021 7:51 PM HALL DIRECTOR ED Discharge Entered On: 07/25/2021 19:52 EST Performed On: 07/25/2021 19:51 EST by Carissa Mak Construction Management Instructor Process Patient Disposition : Discharge Personal Belongings [...] - 07/25/2021 19:51 EST Electronically signed by [facility] Conversion External Relations Director Cerner at 11/17/2022 9:45 AM CDT documented in this encounter Plan of Treatment Not on file documented as of this encounter Visit Diagnoses Not on filedocumented in this encounter Care Teams Kalsominer Relationship Specialty Start Date End Date Colby Quan MD [address] [place] [facility] [address] [place] [id number] PCP - General Family Medicine 05/09/23 documented as of this encounter
--- OUTSIDE RECORDS SUMMARY | 2025-07-13 14:24 | XMS_ITS | Encounter Summary ---
Author Organization Healthcare Address [address] [id number] Care Team Providers Care Display Coordinator Name Role Phone Colby Quan MD Primary Care Provider [phone] Encounter Details Date Type Department Care Team (Late st Contact Info) Description 02/19/2024 Orders Only External Location [address] [place] [address] Costa Melendez MD [facility] [address] [place] [address] Social History Tobacco Use Types Packs/Day Years [...] on filedocumented in this encounter Care Teams Display Coordinator Relationship Specialty Start Date End Date Colby Quan MD [address] [address] [place] [address] PCP - General 12/11/20 documented as of this encounter
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
--- OUTSIDE RECORDS SUMMARY | 2025-07-13 14:24 | XMS_ITS | Encounter Summary ---
Author Organization [email or web address] ([place], [place], [place], [place], [place]) Address [address] [place] [address] Care Team Providers Care Extract Puller Name Role Phone Xochitl Quan MD Primary Care Provider + [phone] Encounter Details Date Type Department Care Team (Late st Contact Info) Description 07/25/2021 Transcribed Document [facility] [place] Family [place] [facility] [place] [address] ProviderJames MD [address] [place] [id number] Social History Tobacco Use Types Packs/Day Years Used Date Smoking Tobacco: Never Assessed Sex and Gender Information Value Date Recorded Sex Assigned at Not on file Legal Sex Male 1:17 PM CDT Gender Identity Not on file Sexual Orientation Not on file documented as of this encounter Miscellaneous Notes * Cerner Conversion Note - Historical MD Mary Grace - 07/25/2021 6:43 PM ONCOLOGY PHYSICIAN Patient: DAYSI KIM Age: 80 years Sex: [...] Medical/ Family/ Social History Surgical history: Cholecystectomy ([id number]). Stent in kidney (not sure which one). [...] Active Problems (11) Atrial fibrillation CAD s/p VT stent CHF - Congestive heart failure CKD [...] 11.9 % LOW Lymph # 1.16 x10(3)/uL [place] % 7.4 % [place] # 0.72 K/uL Eos % 3.7 % [...] on filedocumented in this encounter Care Teams Extract Puller Relationship Specialty Start Date End Date Xochitl Quan MD [address] [facility] [address] [place] [address] PCP - General Family Medicine 05/09/23 documented as of this encounter
--- OUTSIDE RECORDS SUMMARY | 2025-07-13 14:24 | XMS_ITS | Referral Summary ---
Author Organization [employer] ([place], [place], [place], [place], [place]) Address [address] [place] [address] Care Team Providers Care Beadworker Name Role Phone Colby Quan MD Primary Care Provider + [phone] Allergies Active Allergy Reactions Criticality Noted Date [...] Date Michael rded Speak language other than Swedish at home Not on file 08/18/2023 Want [...] on file Insurance MEDICARE PART B ONLY [facility] Advance Directives For more information, please contact: [phone] Documents on File Type Date Recorded Patient Leak Detection Engineer Expl anation Power of Internet Systems Administrator 05/10/2023 1:34 PM POA 05/10/23 Care Teams Beadworker Relationship Specialty Start Date End Date Colby Quan MD [address] [place] [facility] [address] [place] [phone] PCP - General Family Medicine 05/09/23
--- OUTSIDE RECORDS SUMMARY | 2025-07-13 14:24 | XMS_ITS | Clinical Summary ---
Author Organization [facility] Address [address] [place] [address] Care Team Providers Care Stockroom Clerk Name Role Phone Colby Quan MD Primary Care Provider [phone] Allergies Active Allergy Reactions Criticality Noted Date [...] pain 04/19/2024 CAD (coronary artery disease) 04/19/2024 Common wart 04/19/2024 Closed right fibular fracture 04/19/2024 Respiratory failure with hypoxia 04/19/2024 COPD (chronic obstructive pulmonary disease) COPD exacerbation 04/19/2024 Cystitis 04/19/2024 Congestive heart failure 04/19/2024 Diabetic foot 04/19/2024 Dizziness 04/19/2024 DM2 (diabetes mellitus, type 2) 04/19/2024 Dyspnea 04/19/2024 Facial contusion 04/19/2024 Epistaxis 04/19/2024 Epigastric pain 04/19/2024 Elevated troponin 04/19/2024 Elevated brain natriuretic peptide (BNP) level 0 04/19/2024 Non compliance with medical treatment 04/19/2024 Keratosis 04/19/2024 HLD (hyperlipidemia) 04/19/2024 GERD (gastroesophageal reflux disease) Fever 04/19/2024 Otitis externa 04/19/2024 Onychodystrophy 04/19/2024 PAD (peripheral artery disease) 04/19/2024 Renal insufficiency 04/19/2024 RHONDA (renal artery stenosis) 04/19/2024 Presence of cardiac pacemaker 04/19/2024 SIRS (systemic inflammatory response syndrome) 0 04/19/2024 Right shoulder pain 04/19/2024 Respiratory acidosis 04/19/2024 Transient cerebral ischemia 04/19/2024 TIA (transient ischemic attack) 04/19/2024 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 Chronic respiratory failure 05/08/[address] 02/20/2018 Heart disease 02/20/2018 COPD, moderate 07/04/2013 Resolved Problems Problem Noted Date Diagnosed Date Resolved Date Acute bronchitis 04/19/2024 04/20/2025 COVID 04/19/2024 04/20/2025 Fall 04/19/2024 04/20/2025 Left lower lobe pneumonia 04/19/2024 Overweight (BMI 25.0-29.9) 04/19/2024 0 04/20/2025 Community acquired pneumonia 04/19/2024 04/20/2025 Pneumonia due to COVID-19 virus 04/19/2024 04/20/2025 Positive blood cultures 04/19/202404/01 Immunizations Immunization Administration Dates Next Due Influenza, [...] or (1 - 1-dose 75+ series) 2014 [id number] Vaccine (2 - season) 2025 10/08/2020 [facility]-Influenza Vaccine (#1) 03/31/202506/02, 11/01/2017, 05/05/2016, Additional history exists [facility]-Depression Screening 05/08/2025 05/08/2024 [facility]-Pneumococcal Vaccine: 50+ Years Completed 07/25/2022, 04/26/2013 [facility]-Obesity Intervention Completed 05/08/2024, 04/01 HPV Vaccines (No Doses Required) Completed [facility]-HIB Vaccines Aged Out No longer e [...] age to complete this topic Insurance [facility] MEDICAID MEDICARE Care Teams Stockroom Clerk Relationship Specialty Start Date End Date Colby Quan MD [address] [place] [id number] PCP - General 12/11/20
--- OUTSIDE RECORDS SUMMARY | 2025-07-13 14:24 | XMS_ITS | Encounter Summary ---
Author Organization [employer] ([place], [place], [place], [place], [place]) Address [address] [place] [address] Care Team Providers Care Maintenance Carpenter Name Role Phone Colby Quan MD Primary Care Provider + [phone] Encounter Details Date Type Department Care Team (Late st Contact Info) Description 07/25/2021 Transcribed Document [facility] [address] [place] [address] ProviderJames MD [address] [place] [address] Social History Tobacco Use Types Packs/Day Years Used Date Smoking Tobacco: Never Assessed Sex and Gender Information Value Date Recorded Sex Assigned at Not on file Legal Sex Male 1:17 PM CDT Gender Identity Not on file Sexual Orientation Not on file documented as of this encounter Miscellaneous Notes * Cerner Conversion Note - Historical ProviderMD - 07/25/2021 4:04 PM HALF SECTION IRONER Broset Violence Assessment Entered On: 07/25/2021 17:07 EST Performed On: 07/25/2021 17:07 EST by TAMMI DELCID RN Broset Violence Assessment Broset Violence Checklist of Symptoms : None Broset Violence Symptoms Subtotal : 0 Broset Violence Symptoms Indicator : Low risk (0) TAMMI DELCID RN - 07/25/2021 17:07 EST Electronically signed by Tonja [facility] Conversion Plastic Frame Inserter Cerner at 11/17/2022 9:50 AM CDT documented in this encounter Plan of Treatment Not on file documented as of this encounter Visit Diagnoses Not on filedocumented in this encounter Care Teams Maintenance Carpenter Relationship Specialty Start Date End Date Colby Quan MD [address] [facility] [address] [place] [phone] PCP - General Family Medicine 05/09/23 documented as of this encounter
--- OUTSIDE RECORDS SUMMARY | 2025-07-13 14:24 | XMS_ITS | Encounter Summary ---
Author Organization [employer] ([place], [place], [place], [place], [place]) Address [address] [place] [address] Care Team Providers Care Supervisor Process Testing Name Role Phone Xochitl Quan MD Primary Care Provider + [phone] Encounter Details Date Type Department Care Team (Late st Contact Info) Description 07/25/2021 Transcribed Document [facility] [place] Family Medicine [facility] [place] [place] [address] ProviderJames MD [address] [place] [address] Social History Tobacco Use Types Packs/Day Years Used Date Smoking Tobacco: Never Assessed Sex and Gender Information Value Date Recorded Sex Assigned at Not on file Legal Sex Male 1:17 PM CDT Gender Identity Not on file Sexual Orientation Not on file documented as of this encounter Miscellaneous Notes * Cerner Conversion Note - James Brody MD - 07/25/2021 7:32 PM CUPOLA TENDER HELPER [facility] [place] [address] LORENA KIMDDIE :1940 Visit Time:07/25/2021 Your Visit Summary Your [...] restart the lisinopril and the carvedilol. Where: [facility] [address] [place] [address] [place] [address]- [facility] (1) Allergies penicillin (angioedema, hives) Immunizations This [...] range between ( 0.0 and 7.0 ) [place] #: 0.72 K/uL -- Normal range between ( 0.16 and 1.00 ) Elliptocytes: 1+ Eos #: 0.36 x10(3)/uL -- Normal range between ( 0.00 and 0.80 ) [place] %: 7.4 % -- Normal range between [...] up suddenly after eating. Medicines ??? Take oyun-zyx-esyxghg and prescription medicines only as told by [...] provider. Document Revised: 01/10/2019 Document Reviewed: 01/10/2019 [employer] Patient Education ?? 2020 [employer]. Emergency Awareness and Preventative Care STROKE is [...] Assistance with quitting is available by contacting 7-284-LMLE-NOW. This is a free resource providing counseling, [...] was given the opportunity to ask questions. Patient/Hoop Maker Machine Name: Patient/Hoop Maker Machine Signature: Relationship to Patient: Clinician/Hospital Hoop Maker Machine Signature: Please Provide a Telephone Number Where You Can Be Reached: Is it Permissible To Leave a Message? Date: Electronically signed by Tonja [facility] Conversion Band Cutting Machine Operator Cerner at 11/17/2022 9:48 AM CDT documented in this encounter Plan of Treatment Not on file documented as of this encounter Visit Diagnoses Not on filedocumented in this encounter Care Teams Supervisor Process Testing Relationship Specialty Start Date End Date Xochitl Quan MD [address] [place] [address] [place] [phone] PCP - General Family Medicine 05/09/23 documented as of this encounter
--- OUTSIDE RECORDS SUMMARY | 2025-07-13 14:25 | XMS_ITS | Encounter Summary ---
Author Organization [facility] Address [address] [place] [address] Care Team Providers Care Industrial Relations Analyst Name Role Phone Colby Quan MD Primary Care Provider [phone] Encounter Details Date Type Department Care Team (Late st Contact Info) Description 05/07/2023 Orders Only External Location [address] [place] [address] Wali Acevedo MD [address] [place] [address] Social History Tobacco Use Types [...] on filedocumented in this encounter Care Teams Industrial Relations Analyst Relationship Specialty Start Date End Date Colby Quan MD [address] [place] [address] PCP - General 12/11/20 documented as of this encounter
--- OUTSIDE RECORDS SUMMARY | 2025-07-13 14:26 | XMS_ITS | Encounter Summary ---
Author Organization [employer] ([place], [place], [place], [place], [place]) Address [address] [place] [address] Care Team Providers Care Base Remover Name Role Phone Colby Quan MD Primary Care Provider + [phone] Encounter Details Date Type Department Care Team (Late st Contact Info) Description 07/25/2021 Transcribed Document [facility] [place] Family Medicine [facility] [place] [address] ProviderJames MD [address] [place] [id number] Social History Tobacco Use Types Packs/Day Years Used Date Smoking Tobacco: Never Assessed Sex and Gender Information Value Date Recorded Sex Assigned at Not on file Legal Sex Male 1:17 PM CDT Gender Identity Not on file Sexual Orientation Not on file documented as of this encounter Miscellaneous Notes * Cerner Conversion Note - Historical ProviderMD - 07/25/2021 4:04 PM INTELLIGENCE RESEARCH SPECIALIST ED Triage Entered On: 07/25/2021 16:14 EST [...] : 3 - Urgent Tracking Group : [facility] TAMMI DELCID RN - 07/25/2021 16:12 [...] 16:14:25 EST) Problems(Active) Atrial fibrillation (SNOMED CT :41171504 ) Name of Problem: Atrial fibrillation ; Recorder: NIRAV COLE RN; Confirmation: Confirmed ; Classification: Medical ; Code: [id number] ; Contributor System: New.net ; Last Updated: 01/09/2014 19:25 EDT ; Life Cycle Date: 07/05/2013 ; Life Cycle Status: Active ; Vocabulary: SNOMED CT CAD s/p ID stent (SNOMED CT :3612498424 ) Name of Problem: CAD s/p ID stent ; Recorder: CHANG SEVILLA RN; Confirmation: Confirmed ; Classification: Medical ; Code: 1549645001 ; Contributor System: PowerChart ; Last Updated: 12/10/2016 22:14 EDT ; Life Cycle Date: 08/07/2014 ; Life Cycle Status: Active ; Vocabulary: SNOMED CT CHF - Congestive heart failure (SNOMED CT :065301075 ) Name of Problem: CHF - Congestive heart failure ; Recorder: NIRAV COLE RN; Confirmation: Confirmed ; Classification: Medical ; Code: 616007873 ; Contributor System: PowerChart ; Last Updated: 01/14/2014 10:55 EDT ; Life Cycle Date: 07/05/2013 ; Life Cycle Status: Active ; Vocabulary: SNOMED CT CKD (chronic kidney disease), stage III (SNOMED CT :8058861107 ) Name of Problem: CKD (chronic kidney disease), stage III ; Recorder: ALLYSON ZAIDI MD-EMR; Confirmation: Complaint of ; Classification: Medical ; Code: [id number] ; Contributor System: PowerChart ; Last Updated: 12/10/2016 22:14 EDT ; Life Cycle Date: 12/10/2016 ; Life Cycle Status: Active ; Vocabulary: SNOMED CT COPD (SNOMED CT :16255868 ) Name of Problem: COPD ; Recorder: NIRAV COLE RN; Confirmation: Confirmed ; Classification: Medical ; Code: 59287931 ; Contributor System: ChorPpayChart ; Last Updated: 01/14/2014 10:36 EDT ; Life Cycle Date: 07/05/2013 ; Life Cycle Status: Active ; Vocabulary: SNOMED CT ; Comments: 12/02/2013 11:05 - DIANNA SHI, MARCELLO 2 l o2 at night prn CVA (cerebrovascular accident) (SNOMED CT :582815622 ) Name of Problem: CVA (cerebrovascular accident) ; Recorder: ALLYSON ZAIDI MD-EMR; Confirmation: Complaint of ; Classification: Medical ; Code: 180004292 ; Contributor System: ChorPpayChart ; Last Updated: 12/10/2016 22:14 EDT ; Life Cycle Date: 12/10/2016 ; Life Cycle Status: Active ; Vocabulary: SNOMED CT Disorder of prostate (BPH) (SNOMED CT :83164325 ) Name of Problem: Disorder of prostate (BPH) ; Recorder: GISELE LOPEZ RN; Confirmation: Confirmed ; Classification: Medical ; Code: 90632462 ; Contributor System: PowerChart ; Last Updated: 09/01/2014 10:50 EST ; Life Cycle Date: 09/01/2014 ; Life Cycle Status: Active ; Vocabulary: SNOMED CT GERD (gastroesophageal reflux disease) (SNOMED CT :689446059 ) Name of Problem: GERD (gastroesophageal reflux disease) ; Recorder: DIANNA SHI RN; Confirmation: Confirmed ; Classification: Medical ; Code: 903358976 ; Contributor System: PowerChart ; Last Updated: 12/02/2013 10:28 EDT ; Life Cycle Date: 12/02/2013 ; Life Cycle Status: Active ; Vocabulary: SNOMED CT High cholesterol (SNOMED CT :29057210 ) Name of Problem: High cholesterol ; Recorder: GISELE LOPEZ RN; Confirmation: Confirmed ; Classification: Medical ; Code: 19920803 ; Contributor System: PowerChart ; Last Updated: 09/01/2014 10:48 EST ; Life Cycle Date: 09/01/2014 ; Life Cycle Status: Active ; Vocabulary: SNOMED CT PAD (peripheral artery disease) (SNOMED CT :5003556469 ) Name of Problem: PAD (peripheral artery disease) ; Recorder: CHANG SEVILLA RN; Confirmation: Confirmed ; Classification: Medical ; Code: 9123313693 ; Contributor System: PowerChart ; Last Updated: 08/07/2014 17:12 EST ; Life Cycle Date: 08/07/2014 ; Life Cycle Status: Active ; Vocabulary: SNOMED CT Peripheral neuropathy (SNOMED CT :03116529 ) Name of Problem: Peripheral neuropathy ; Recorder: DIANNA SHI RN; Confirmation: Confirmed ; Classification: Medical ; Code: 25153823 ; Contributor System: PowerChart ; Last Updated: 12/02/2013 10:28 EDT ; Life Cycle Date: 12/02/2013 ; Life Cycle Status: Active ; Vocabulary: SNOMED CT Diagnoses(Active) Hypotension Date: 07/25/2021 ; Diagnosis Type: Reason For Visit ; Confirmation: Complaint of ; Clinical Dx: Hypotension ; Classification: Medical ; Clinical Service: Non-Specified ; Code: PNED ; Probability: 0 ; Diagnosis Code: [id number] ED Height and Weight Height Source : Stated Height Entry Format : Mcintosh Height, Feet : 5 ft(Converted to: 152 cm, 60 Inch) Height, Inches : 2 Inch(Converted to: 0 ft 2 Inch, 5.08 cm) Clinical Height : 157.48 cm Weight Source, ED : Critical estimated dosing weight Weight Entry Format : Mcintosh Weight, Pounds : 150 lb Clinical Dosing Weight : 68.18 kg Body Surface Area (BSA) : 1.69 m2 Body Mass Index : 27.5 kg/m2 (HI) [place] Body Weight (IBW) : 53.73 kg TAMMI DELCID RN - 07/25/2021 16:12 EST Electronically signed by Tonja [facility] Conversion Voice Engineer Cerner at 11/17/2022 9:28 AM CDT documented in this encounter Plan of Treatment Not on file documented as of this encounter Visit Diagnoses Not on filedocumented in this encounter Care Teams Base Remover Relationship Specialty Start Date End Date Colby Quan MD [facility] [address] [place] [phone] PCP - General Family Medicine 05/09/23 documented as of this encounter
--- OUTSIDE RECORDS SUMMARY | 2025-07-13 14:26 | XMS_ITS | Encounter Summary ---
Author Organization [employer] ([place], [place], [place], [place], [place]) Address [address] [place] [address] Care Team Providers Care Drawing Frame Tender Name Role Phone Colby Quan MD Primary Care Provider [phone] Encounter Details Date Type Department Care Team (Late st Contact Info) Description 07/25/2021 Transcribed Document [facility] [place] Family Medicine [address] [place] [address] ProviderJames MD [address] [place] [address] Social History Tobacco Use Types Packs/Day Years Used Date Smoking Tobacco: Never Assessed Sex and Gender Information Value Date Recorded Sex Assigned at Not on file Legal Sex Male 1:17 PM CDT Gender Identity Not on file Sexual Orientation Not on file documented as of this encounter Miscellaneous Notes * [employer]ner Conversion Note - Historical ProviderMD - 07/25/2021 7:[address] LIGHT SERVICER SUPERVISOR Electronically signed by Tonja [facility] Conversion Utility Forester Cerner at 11/17/2022 9:40 AM CDT documented in this encounter Plan of Treatment Not on file documented as of this encounter Visit Diagnoses Not on filedocumented in this encounter Care Teams Drawing Frame Tender Relationship Specialty Start Date End Date Colby Quan MD [address] [facility] [address] [place] [phone] PCP - General Family Medicine 05/09/23 documented as of this encounter
--- NOTE | 2025-07-13 14:30 | ECG_ITS ---
APPROVED REPORT Exam: Resting ECG HR:83 bpm ECG Measurements Heart Rate 83 AXES QRSd 117 QRS -67 QT 360 T 122 QTc 400 Conclusion UNCERTAIN IRREGULAR RHYTHM ELECTRONIC VENTRICULAR PACEMAKER -- CONTOUR ANALYSIS BASED ON INTRINSIC RHYTHM LEFT AXIS DEVIATION [QRS AXIS < -30] POSSIBLE ANTERIOR MYOCARDIAL INFARCTION , OF INDETERMINATE AGE [30 ms Q WAVE IN V3/V4, OR R < 0.2 mV IN V4] ABNORMAL ECG UNCONFIRMED REPORT Electronically signed by : RASHAUN BURNETTE, 07/14/2025 00:18:20
[2025-07-13 14:36] LABS: VBG HCO3 21.4 mmol/L (23-30); VBG PCO2 43.3 mmol/L (35-51); VBG PH 7.31 mmol/L (7.31-7.41); VBG PO2 46.0 mmol/L (28-40)
[2025-07-13 14:37] LABS: Hematocrit 36.7 % (42.0-52.0); Hemoglobin 11.3 g/dL (14.1-18.0); Immature Granulocytes % 0.3 %; Mean Corpuscular HGB Conc 30.8 g/dL (31.8-35.4); Mean Corpuscular Hemoglobin 28.4 pg (27.0-31.2); Mean Corpuscular Volume 92.2 fl (80-94); Nucleated Red Blood Cells % 0 %; Platelet Count 242 K/mm3 (142-424); Red Blood Count 3.98 M/mm3 (4.60-6.20); Red Cell Distribution Width-SD 52.7 fL; White Blood Count 13.5 K/mm3 (4.8-10.8)
[2025-07-13] MEDS: IPRATROPIUM/ALBUTEROL 3 ML NEB 9 ML IH (14:39)
[2025-07-13 14:41] LABS: Lactate Venous 2.9 mmol/L (0.4-2.0)
[2025-07-13] MEDS: RINGERS SOLUTION,LACTATED 500 ML 999 ML IV (14:55)
[2025-07-13 15:00] LABS: Albumin Level 4.0 g/dl (3.5-5.0); Chloride 104 mmol/L (98-107)
[2025-07-13 15:01] LABS: Coronavirus 19, PCR Not Detected (NotDetected); Influenza A, PCR Not Detected (NotDetected); Influenza B, PCR Not Detected (NotDetected)
[2025-07-13 15:01] LABS: Potassium 4.1 mmoL/L (3.5-5.1); Sodium 135 mmol/L (136-145)
[2025-07-13 15:03] LABS: Alanine Aminotransferase 46 U/L (12-78); Albumin/Globulin Ratio 1.1 (1.1-1.8); Anion Gap 13.1 mEq/L (5-15); Aspartate Amino Transferase 67 U/L (17-59); Blood Urea Nitrogen 23 mg/dl (9-20); Carbon Dioxide 22 mmol/L (22.0-30.0); Creatinine Clearance Estimated 33 mL/min (50-200); Creatinine,Serum 1.80 mg/dl (0.66-1.25); Estimated Glomerular Filt Rate 36 ml/min (>60); GFR (African American) 44 ML/MIN (>60); Globulin 3.7 g/dL (1.3-3.2); Total Protein,Serum 7.7 g/dl (6.3-8.2)
[2025-07-13 15:04] LABS: Alkaline Phosphatase 81 U/L (38-126); Bilirubin,Total 1.5 mg/dl (0.2-1.3); Calcium 8.6 mg/dl (8.4-10.2); Glucose 140 mg/dl (74-100); Magnesium 2.0 mg/dl (1.6-2.3)
[2025-07-13 15:13] LABS: NT Pro Brain Natriuretic Pep. 10200 pg/mL (0-450)
[2025-07-13 15:15] LABS: Troponin I 0.07 ng/ml (0.00-0.034)
[2025-07-13] MEDS: AZITHROMYCIN 500 MG in 0.9 % SODIUM CHLORIDE 250 ML 250 MG IV (15:27)
--- NOTE | 2025-07-13 15:56 | EXP.HP ---
History of Present Illness *Admission Date: 07/13/25 *Reason for visit:: Shortness of breath *History of present illness: Mr. Kim is an 84-year-old male with multiple comorbidities including CKD, HFpEF, COPD. Presented to the ER with complaint of worsening shortness of breath over the past several days to a week. He has had intermittent cough, nonproductive. No alexandra fever. Presented to the ER because of his shortness of breath and chest discomfort. On arrival, found to have elevated BNP of 10,000, white count of 13.5. Chest imaging obtained with x-ray showing right middle lobe consolidation concerning for pneumonia versus effusion. Started on azithromycin and Rocephin. Medicine consulted for admission and further management. After arriving to the floor, patient is stable on room air with mild respiratory distress. Review of chart shows echo obtained a year ago in June 2024 with RVSP of 40-45, EF of 60%. [facility] Disclaimer: The information contained in this section may have been updated after the patient was seen, as this information can be updated by other users. 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 History of arthritis History of kidney disease History of heart attack History of hypertension History of diabetes mellitus, type I History of CHF (congestive heart failure) History of anxiety History and physical examination, immigration Carotid stenosis Transient neurological symptoms Pulmonary edema Acute exacerbation of CHF (congestive heart failure) Acute on chronic respiratory failure with hypoxia and hypercapnia Acute respiratory distress Acute exacerbation of chronic obstructive pulmonary disease Elevated d-dimer Callus of foot Balanitis BPH loc w urin obs/LUTS Urine retention GERD (gastroesophageal reflux disease) PAD (peripheral artery disease) Presence of cardiac pacemaker History of peptic ulcer Anemia Overweight (BMI 25.0-29.9) Onychoincurvatum Onychogryphosis Onychodystrophy Diabetic foot TIA (transient ischemic attack) Transient cerebral ischemia A-fib Stroke-like symptoms Pulmonary nodule Diastolic dysfunction DM2 (diabetes mellitus, type 2) Chronic a-fib Left lower lobe pneumonia COVID Pneumonia due to COVID-19 virus Positive blood cultures Respiratory failure with hypoxia Closed right fibular fracture SIRS (systemic inflammatory response syndrome) Heart attack History of left heart catheterization (LHC) Abnormal result of cardiovascular function study Tachy-gerry syndrome Dizziness Sinus pause correction current use 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 therapy HTN (hypertension) HLD (hyperlipidemia) RHONDA (renal artery stenosis) Dyspnea Edema Congestive heart failure COPD (chronic obstructive pulmonary disease) CAD (coronary artery disease) Surgical History History of heart artery stent S/P cardiac pacemaker procedure S/P cataract extraction History of cholecystectomy History of renal stent Family History Sister Breast cancer Son Diabetes Sister Leukemia Other Cancer Coronary artery disease Heart attack Heart disease Hypertension Stroke Social History Smoking Status: Former smoker tobacco type: cigarettes packs per day: 1 years smoked: 50 how long ago did patient quit smokin yrs ago second hand exposure: No alcohol intake: former counseling provided: none substance use type: denies use current occupational status: retired Travel in the last 8 weeks?: None household members: children housing: house marital status: number of children: 7 current occupational exposures/hazards: No caffeine: Yes Have you lived/traveled outside [place] in past 30 days?: No Contact w/someone who lives/traveled outside US past 30 days?: No Exposure to someone with infectious disease in past 14 days?: No Do you have a fever (greater than 100.4 F or 38 C)?: No Have you tested positive for COVID-19?: No Exposed to someone with COVID-19 in past 14 days?: No Do you have a sore throat?: No Do you have a cough?: No Do you have any weakness?: No Are you experiencing any nausea/vomitting?: No Do you have any diarrhea?: No Are you experiencing any unusual bleeding?: No Do you have any muscle aches/pain?: No Do you have any abdominal pain?: No Are you experiencing loss of taste or smell?: No Other Medical History Have you received the Flu Vaccine for this season: No Have you received the Pneumonia Vaccine: No Review of Systems Review of Systems Review of systems (narrative): 14 point review of systems performed, pertinent positives and negatives as per HPI Meds Home Medications and Allergies Home Medications ?Medication ?Instructions ?Recorded ?Confirmed ?Type atorvastatin 80 mg tablet 80 mg PO HS 09/10/17 06/18/25 History apixaban 5 mg tablet (Eliquis) 5 mg PO BID 01/29/18 06/18/25 History gabapentin 300 mg capsule 300 mg PO BID 01/20/20 06/18/25 History fluticasone fur. 100 mcg-umeclid 1 puff inhalation DAILY 05/15/20 06/18/25 History 62.5 mcg-vilant 25 mcg inhalat.powder metformin 500 mg tablet,extended 1,000 mg PO DAILY 11/29/20 06/18/25 History release 24 hr Held on 04/02/25. Instructions: Resume on 04/04/25. famotidine 40 mg tablet 40 mg PO HS 05/07/23 06/18/25 History ferrous sulfate 325 mg (65 mg 325 mg PO DAILY 05/07/23 06/18/25 History iron) tablet (FeroSul) lisinopril 5 mg tablet 5 mg PO DAILY 08/09/23 06/18/25 History omeprazole 20 mg capsule,delayed 20 mg PO DAILY 11/08/23 06/18/25 History release clopidogrel 75 mg tablet 75 mg PO DAILY 02/04/24 06/18/25 History nitroglycerin 0.4 mg sublingual 0.4 mg sublingual Q5MINP PRN chest 02/05/24 06/18/25 History tablet pain amlodipine 5 mg tablet 5 mg PO DAILY 03/25/24 06/18/25 History carvedilol 6.25 mg tablet 6.25 mg PO BID 03/25/24 06/18/25 History tamsulosin 0.4 mg capsule 0.8 mg PO HS 07/24/24 06/18/25 History spironolactone 50 mg tablet 50 mg PO DAILY #30 tabs 07/26/24 06/18/25 Rx albuterol sulfate 90 mcg/actuation 2 puff inhalation Q6H PRN copd 09/16/24 06/18/25 History aerosol inhaler empagliflozin 10 mg tablet 10 mg PO DAILY 09/16/24 06/18/25 History (Jardiance) loperamide 2 mg capsule (Imodium 2 mg PO QID PRN loose stool #1 cap 09/24/24 06/18/25 Rx A-D) ketoconazole 2 % topical cream 1 applic topical BID athletes foot 12/17/24 06/18/25 Rx #30 grams finasteride 5 mg tablet (Proscar) 5 mg PO DAILY #90 tabs 03/03/25 06/18/25 Rx azithromycin 250 mg tablet 250 mg PO DAILY 4 days #4 tabs 04/06/25 06/18/25 Rx cefpodoxime 200 mg tablet 200 mg PO BID 5 days #10 tabs 04/06/25 06/18/25 Rx Diabetic Shoes (DME) #1 ea 06/18/25 06/18/25 Rx New Prescriptions to Start Prescriptions: Allergies Allergy/AdvReac Type Severity Reaction Status Date / Time Penicillins Allergy Unknown Verified 06/18/25 13:19 allergy reaction Exam Data for Last 24 hours Vital signs and Labs for Last 24 Hours: Temp Pulse Resp BP Pulse Ox O2 Del Method O2 Flow Rate 98.9 F 86 18 155/86 H 99 Room Air, T-Piece 2 07/13/25 14:15 07/13/25 15:00 07/13/25 14:15 07/13/25 15:00 07/13/25 15:00 07/13/25 15:00 07/13/25 14:30 Laboratory Results - last 24 hr 07/13/25 14:27: WBC 13.5 H, RBC 3.98 L, Hgb 11.3 L, Hct 36.7 L, MCV 92.2, MCH 28.4, MCHC 30.8 L, RDW 15.6, Plt Count 242, MPV 12.1 H, Neut % (Auto) 84.1 H, Lymph % (Auto) 5.9 L, [place] % (Auto) 9.6 H, Eos % (Auto) 0.0 L, Baso % (Auto) 0.1, Neut # (Auto) 11.4 H, Lymph # (Auto) 0.8, [place] # (Auto) 1.3 H, Eos # (Auto) 0.0, Baso # (Auto) 0.0, VBG pH 7.31, VBG pCO2 43.3, VBG pO2 46.0 H, VBG HCO3 21.4 L, VBG Total CO2 22.7 L, VBG O2 Saturation 76.0 H, VBG Base Excess -4.9 L, VBG Lactic Acid 2.9 H, Sodium 135 L, Potassium 4.1, Chloride 104, Carbon Dioxide 22, Anion Gap 13.1, BUN 23 H, Creatinine 1.80 H, Estimated Creat Clear 33, Estimated GFR 36 L, Est GFR ( Amer) 44 L, Glucose 140 H, Calcium 8.6, Magnesium 2.0, Total Bilirubin 1.5 H, AST 67 H, ALT 46, Alkaline Phosphatase 81, Troponin I 0.07 H, NT-Pro-B Natriuret Pep 93058 H, Total Protein 7.7, Albumin 4.0, Globulin 3.7 H, Albumin/Globulin Ratio 1.1 I & O for Last 24 hours: Intake & Output 07/10/25 07/11/25 07/12/25 07/13/25 23:59 23:59 23:59 23:59 Intake Total 550 / 550 Balance 550 / 550 Weight 77.111 kg Constitutional Constitutional: mild distress, average body habitus, chronically ill appearing and cooperative *Routine HEENT Exam Head: Present normocephalic Eye: Present EOMI and PERRL ENT: Present mucous membranes moist Comments: hearing aids in use *Routine Neck Exam Neck: Present supple; Absent lymphadenopathy *Routine Respiratory Exam Respiratory: Present prolonged expiratory phase, crackles (Right lung field, minimal deep inspiration), distant breath sounds and diminished air movement; Absent rhonchi or wheezes *Routine Cardiovascular Exam Cardiovascular: Present irregularly irregular *Routine Abdominal Exam Abdominal: Present soft and normoactive bowel sounds; Absent tenderness *Routine Rectal Exam Rectal:: deferred *Routine Genitalia Exam Genitalia:: deferred *Routine Extremities Exam Extremities: Absent cyanosis, clubbing or edema *Routine Skin Exam Skin: Present warm; Absent rash *Routine Neurological Exam Neurological: Present alert and oriented X3; Absent altered mental status Assessment and Plan *Assessment and plan (1) Pneumonia: Status: Acute Category: Medical Code(s): J18.9 - Pneumonia, unspecified organism (2) Acute on chronic hypoxic respiratory failure: Status: Acute Category: Medical Code(s): J96.21 - Acute and chronic respiratory failure with hypoxia (3) Acute on chronic heart failure with preserved ejection fraction (HFpEF): Status: Acute Category: Medical Code(s): I50.33 - Acute on chronic diastolic (congestive) heart failure (4) HTN (hypertension): Status: Chronic Qualifiers: Hypertension type: essential hypertension Qualified Code(s): I10 - Essential (primary) hypertension Category: Medical Code(s): I10 - Essential (primary) hypertension (5) HLD (hyperlipidemia): Status: Chronic Qualifiers: Hyperlipidemia type: mixed hyperlipidemia Qualified Code(s): E78.2 - Mixed hyperlipidemia Category: Medical Code(s): E78.5 - Hyperlipidemia, unspecified (6) COPD (chronic obstructive pulmonary disease): Status: Acute Category: Medical Code(s): J44.9 - Chronic obstructive pulmonary disease, unspecified (7) CKD stage 3b, GFR 30-44 ml/min: Status: Chronic Category: Medical Code(s): N18.32 - Chronic kidney disease, stage 3b (8) NSTEMI (non-ST elevated myocardial infarction): Status: Acute Category: Medical Code(s): I21.4 - Non-ST elevation (NSTEMI) myocardial infarction Plan 84-year-old male who wears oxygen intermittently at home with COPD who presented to the ER with worsening shortness of breath. Found to be hypoxic on arrival to the ER. Workup consistent with pneumonia. Discussed case with ER physician, request admission for further management. I decided to admit for IV antibiotics and diuresis and further treatment of his acute on chronic hypoxemic respiratory failure, acute HFpEF exacerbation, and right middle lobe pneumonia. PSI port score of 115, class IV risk (due to age, male, CHF history, renal disease history and, effusions on x-ray). 8-9% mortality risk. Necessitating inpatient care. Problems addressed as follows: Acute on chronic hypoxemic respiratory failure Right middle lobe pneumonia - White count 13, x-ray per my review showing dense consolidation of right middle lobe. Blunting of costophrenic margins consistent with small effusions - Initiated on azithromycin and Rocephin. Continue azithromycin 500 mg IV for 3 days. Continue ceftriaxone 2 g daily for at least 5 days. Sputum and blood cultures pending - Repeat CBC, CMP, magnesium ordered for the morning - DuoNebs every 6 hours for COPD component; twice daily - Supplemental oxygen as needed for goal sats greater 90%. Currently on 3 L. Wears 2 L intermittently at baseline, does not usually need at rest. Requiring 3 L continuous at this time. - O2 sats were 84% when he came to the ER on room air - Mini respiratory panel pending Type II NSTEMI secondary to pneumonia and HFpEF exacerbation Acute on chronic HFpEF: - BNP 10,000. Review of chart shows echo performed in June 2024 with RVSP elevated at 40 to 45. EF preserved at 60%. Troponin also elevated at 0.07, serial levels pending. Will initiate diuresis with Bumex 2 mg IV once. Continue Bumex 1 mg IV twice daily tomorrow. - Will defer cardiology consult to PCP who will take over in the morning - Repeat echocardiogram ordered for the morning CKD 3b: kidney function appears at baseline with BUN 23, creatinine 1.8. Caution with nephrotoxins. Potassium 4.1. Full code Lovenox 40 mg daily Cardiac diet
[2025-07-13] MEDS: BUMETANIDE 1MG/4ML VIAL 2 MG IV (16:05)
[2025-07-13] MEDS: BUDESONIDE 0.5MG/2ML NEB 0.5 MG IH (17:24)
[2025-07-13] MEDS: SODIUM CHLORIDE 3% 15ML NEB 3 ML IH (17:24)
[2025-07-13] MEDS: IPRATROPIUM/ALBUTEROL 3 ML NEB IH ×2 (17:24→23:33)
--- NOTE | 2025-07-13 17:51 | PC.NURSE ---
pts daughter will bring in his home medications in the am. They are not sure what he takes @ home
[2025-07-13 18:20] LABS: Troponin I 0.07 ng/ml (0.00-0.034)
[2025-07-13 18:41] LABS: Reflex Lactic Add Lactic Reflex
[2025-07-13 18:55] LABS: Lactic Acid Follow Up (RFLX 1) 1.9 mmol/L (0.7-2.1)
[2025-07-13] MEDS: ACETAMINOPHEN 325MG TAB 650 MG PO (21:14)
[2025-07-13 21:52] LABS: Troponin I 0.07 ng/ml (0.00-0.034)
[2025-07-14] VITALS (9 sets, daily range): BP systolic 143–165; BP diastolic 64–77; PULSE 73–97; RESP 16–21; TEMP 36.4–37.9; O2SAT 92–96; BMI 25.5
--- NOTE | 2025-07-14 02:11 | PC.NURSE ---
Pt AOx4. COWLITZ. Treated a 101.8 fever with tylenol per SEP, after which his temp decreased to 97.6. Pt is currently resting in bed with eyes closed. Respirations even and unlabored. Bed is low, locked, and call light is in reach.
--- NOTE | 2025-07-14 05:44 | PC.NURSE ---
Pt had out 250mL via urinal for whole shift. Hospitalist notified. No further orders received.
[2025-07-14] MEDS: BUDESONIDE 0.5MG/2ML NEB 0.5 MG IH ×2 (06:13→18:17)
[2025-07-14] MEDS: IPRATROPIUM/ALBUTEROL 3 ML NEB IH ×4 (06:13→23:23)
[2025-07-14 06:51] LABS: Hematocrit 35.8 % (42.0-52.0); Hemoglobin 11.0 g/dL (14.1-18.0); Immature Granulocytes % 0.4 %; Mean Corpuscular HGB Conc 30.7 g/dL (31.8-35.4); Mean Corpuscular Hemoglobin 28.1 pg (27.0-31.2); Mean Corpuscular Volume 91.6 fl (80-94); Nucleated Red Blood Cells % 0 %; Platelet Count 222 K/mm3 (142-424); Red Blood Count 3.91 M/mm3 (4.60-6.20); Red Cell Distribution Width-SD 52.9 fL; White Blood Count 11.2 K/mm3 (4.8-10.8)
[2025-07-14 07:00] LABS: Albumin Level 3.7 g/dl (3.5-5.0); Chloride 103 mmol/L (98-107); Potassium 3.5 mmoL/L (3.5-5.1); Sodium 134 mmol/L (136-145)
[2025-07-14 07:02] LABS: Blood Urea Nitrogen 25 mg/dl (9-20); Creatinine Clearance Estimated 28 mL/min (50-200); Creatinine,Serum 2.00 mg/dl (0.66-1.25); Estimated Glomerular Filt Rate 32 ml/min (>60); GFR (African American) 39 ML/MIN (>60)
[2025-07-14 07:03] LABS: Alanine Aminotransferase 49 U/L (12-78); Albumin/Globulin Ratio 1.0 (1.1-1.8); Alkaline Phosphatase 85 U/L (38-126); Anion Gap 12.5 mEq/L (5-15); Aspartate Amino Transferase 71 U/L (17-59); Bilirubin,Total 1.1 mg/dl (0.2-1.3); Calcium 8.4 mg/dl (8.4-10.2); Carbon Dioxide 22 mmol/L (22.0-30.0); Globulin 3.6 g/dL (1.3-3.2); Glucose 132 mg/dl (74-100); Magnesium 1.9 mg/dl (1.6-2.3); Total Protein,Serum 7.3 g/dl (6.3-8.2)
--- NOTE | 2025-07-14 08:18 | EXP.PN ---
Subjective *Date: 07/14/25 *Time: 08:58 Interval history: Patient states he is doing somewhat better. He did sleep some last night. Family is at bedside and state that he did not eat much breakfast. He denies any chest pain. Physical therapy in the room ready for evaluation. He is able to sit on the side of the bed and put his own shoes on. Patient is currently on Zithromax Rocephin. He is also on budesonide nebs twice daily as well as DuoNebs every 6 hours's.White blood cell count is 11,200 with a hemoglobin of 11. Chemistry shows sodium of 134 and potassium of 3.5 BUN is 25 and creatinine is 2. Echocardiogram has been ordered as well. Exam Data for Last 24 hours Vital signs and Labs for Last 24 Hours: Temp Pulse Resp BP Pulse Ox O2 Del Method O2 Flow Rate 97.9 F 78 21 144/72 H 92 L Nasal Cannula 2 07/14/25 04:00 07/14/25 06:13 07/14/25 04:00 07/14/25 04:00 07/14/25 04:00 07/14/25 06:26 07/14/25 06:26 Laboratory Results - last 24 hr 07/13/25 14:27: WBC 13.5 H, RBC 3.98 L, Hgb 11.3 L, Hct 36.7 L, MCV 92.2, MCH 28.4, MCHC 30.8 L, RDW 15.6, Plt Count 242, MPV 12.1 H, Neut % (Auto) 84.1 H, Lymph % (Auto) 5.9 L, [place] % (Auto) 9.6 H, Eos % (Auto) 0.0 L, Baso % (Auto) 0.1, Neut # (Auto) 11.4 H, Lymph # (Auto) 0.8, [place] # (Auto) 1.3 H, Eos # (Auto) 0.0, Baso # (Auto) 0.0, VBG pH 7.31, VBG pCO2 43.3, VBG pO2 46.0 H, VBG HCO3 21.4 L, VBG Total CO2 22.7 L, VBG O2 Saturation 76.0 H, VBG Base Excess -4.9 L, VBG Lactic Acid 2.9 H, Sodium 135 L, Potassium 4.1, Chloride 104, Carbon Dioxide 22, Anion Gap 13.1, BUN 23 H, Creatinine 1.80 H, Estimated Creat Clear 33, Estimated GFR 36 L, Est GFR ( Amer) 44 L, Glucose 140 H, Calcium 8.6, Magnesium 2.0, Total Bilirubin 1.5 H, AST 67 H, ALT 46, Alkaline Phosphatase 81, Troponin I 0.07 H, NT-Pro-B Natriuret Pep 20835 H, Total Protein 7.7, Albumin 4.0, Globulin 3.7 H, Albumin/Globulin Ratio 1.1 07/13/25 14:54: SARS-CoV-2 (PCR) Not detected, Influenza Type A (PCR) Not detected, Influenza Type B (PCR) Not detected, RSV (PCR) Not detected, Rhinovirus (PCR) Not detected 07/13/25 17:35: Lactate 1.9, Troponin I 0.07 H 07/13/25 21:22: Troponin I 0.07 H 07/14/25 05:38: WBC 11.2 H, RBC 3.91 L, Hgb 11.0 L, Hct 35.8 L, MCV 91.6, MCH 28.1, MCHC 30.7 L, RDW 15.6, Plt Count 222, MPV 12.0 H, Neut % (Auto) 84.1 H, Lymph % (Auto) 5.4 L, [place] % (Auto) 9.7 H, Eos % (Auto) 0.1, Baso % (Auto) 0.3, Neut # (Auto) 9.4 H, Lymph # (Auto) 0.6 L, [place] # (Auto) 1.1 H, Eos # (Auto) 0.0, Baso # (Auto) 0.0, Sodium 134 L, Potassium 3.5, Chloride 103, Carbon Dioxide 22, Anion Gap 12.5, BUN 25 H, Creatinine 2.00 H, Estimated Creat Clear 28, Estimated GFR 32 L, Est GFR ( Amer) 39 L, Glucose 132 H, Calcium 8.4, Magnesium 1.9, Total Bilirubin 1.1, AST 71 H, ALT 49, Alkaline Phosphatase 85, Total Protein 7.3, Albumin 3.7, Globulin 3.6 H, Albumin/Globulin Ratio 1.0 L I & O for Last 24 hours: Intake & Output 12/07/2407/12/25 07/13/25 07/14/25 11:59 11:59 11:59 11:59 Intake Total 1160 / 1160 Output Total 250 / 250 Balance 910 / 910 Weight 159 lb 3.2 oz Constitutional Constitutional: no acute distress Comments: Sitting on bedside getting ready to work with physical therapy. *Routine Respiratory Exam Respiratory: Present decreased breath sounds (Posteriorly with scattered rhonchi) *Routine Cardiovascular Exam Cardiovascular: Present RRR *Routine Abdominal Exam Abdominal: Present soft and normoactive bowel sounds; Absent tenderness *Routine Extremities Exam Extremities: Absent edema or calf tenderness *Routine Neurological Exam Neurological: Present alert and oriented X3 Comments: Very hard of hearing Assessment and Plan *Assessment and plan (1) Pneumonia: Status: Acute Category: Medical Code(s): J18.9 - Pneumonia, unspecified organism (2) Acute on chronic hypoxic respiratory failure: Status: Acute Category: Medical Code(s): J96.21 - Acute and chronic respiratory failure with hypoxia (3) Acute on chronic heart failure with preserved ejection fraction (HFpEF): Status: Acute Category: Medical Code(s): I50.33 - Acute on chronic diastolic (congestive) heart failure (4) HTN (hypertension): Status: Chronic Qualifiers: Hypertension type: essential hypertension Qualified Code(s): I10 - Essential (primary) hypertension Category: Medical Code(s): I10 - Essential (primary) hypertension (5) HLD (hyperlipidemia): Status: Chronic Qualifiers: Hyperlipidemia type: mixed hyperlipidemia Qualified Code(s): E78.2 - Mixed hyperlipidemia Category: Medical Code(s): E78.5 - Hyperlipidemia, unspecified (6) COPD (chronic obstructive pulmonary disease): Status: Acute Category: Medical Code(s): J44.9 - Chronic obstructive pulmonary disease, unspecified (7) CKD stage 3b, GFR 30-44 ml/min: Status: Chronic Category: Medical Code(s): N18.32 - Chronic kidney disease, stage 3b (8) NSTEMI (non-ST elevated myocardial infarction): Status: Acute Category: Medical Code(s): I21.4 - Non-ST elevation (NSTEMI) myocardial infarction (9) DM2 (diabetes mellitus, type 2): Status: Acute Qualifiers: Diabetes mellitus intermediate teacher insulin use: without intermediate teacher use Diabetes mellitus complication status: with neurologic complications Diabetes mellitus complication detail: with polyneuropathy Qualified Code(s): E11.42 - Type 2 diabetes mellitus with diabetic polyneuropathy Category: Medical Code(s): E11.9 - Type 2 diabetes mellitus without complications (10) Diastolic dysfunction: Status: Acute Category: Medical Code(s): I51.89 - Other ill-defined heart diseases (11) A-fib: Status: Acute Qualifiers: Atrial fibrillation type: longstanding persistent Qualified Code(s): I48.11 - Longstanding persistent atrial fibrillation Category: Medical Code(s): I48.91 - Unspecified atrial fibrillation (12) COPD (chronic obstructive pulmonary disease): Status: Acute Qualifiers: COPD type: COPD with acute exacerbation Qualified Code(s): J44.1 - Chronic obstructive pulmonary disease with (acute) exacerbation Category: Medical Code(s): J44.9 - Chronic obstructive pulmonary disease, unspecified (13) CAD (coronary artery disease): Status: Acute Qualifiers: Associated angina: with unspecified form of angina Coronary Disease-Associated Artery/Lesion type: [place] artery [place] vs. transplanted heart: [place] heart Qualified Code(s): I25.119 - Atherosclerotic heart disease of [place] coronary artery with unspecified angina pectoris Category: Medical Code(s): I25.10 - Atherosclerotic heart disease of [place] coronary artery without angina pectoris (14) Elevated brain natriuretic peptide (BNP) level: Status: Acute Category: Medical Code(s): R79.89 - Other specified abnormal findings of blood chemistry Plan Patient was diuresed yesterday and appears to be better today. Continue current antibiotics and neb treatments. Patient was also thought to have bedbugs. Dr. Quan entry - Saw patient, agree with above note. He seems to have CAP and a CHF exacerbation as he has improved with diuresis and he had a fever last night. Await echo report.
--- NOTE | 2025-07-14 09:07 | HMH.PTEV ---
Physical Therapy Evaluation Rehab PT IP Evaluation Start: 07/13/25 16:59 Freq: ONCE Status: Active Protocol: Document 07/14/25 09:03 BETTIE (Rec: 07/14/25 09:07 BETTIE [id number]) Subjective/History History History Per H&P: Mr. Kim is an 84-year-old male with multiple comorbidities including CKD, HFpEF, COPD. Presented to the ER with complaint of worsening shortness of breath over the past several days to a week. He has had intermittent cough, nonproductive. No alexandra fever. Presented to the ER because of his shortness of breath and chest discomfort. On arrival, found to have elevated BNP of 10,000, white count of 13 .5. Chest imaging obtained with x-ray showing right middle lobe consolidation concerning for pneumonia versus effusion. Started on azithromycin and Rocephin. Medicine consulted for admission and further management. After arriving to the floor, patient is stable on room air with mild respiratory distress. Review of chart shows echo obtained a year ago in June 2024 with RVSP of 40-45, EF of 60%. Subjective Subjective PLOF: IND with mobility using a SPC. Some falls reported d/t pt's big family dog. HOME: Lives with family in a home with 4 [address]. ASSIST: Pt has 20/02 family assistance at home if needed . [facility] How much help from another person do you currently need... Turning from your None back to your side while in a flat bed without using bedrails? Moving from lying on None back to sitting on the side of a flat bed without using bedrails? Moving to and from a None bed to a chair ( including a wheelchair)? Standing up from a None chair using your arms? (e.g., wheelchair, bedside chair) Walking in hospital None room? Climbing 3-5 steps A little with a railing? Mobility Score 23 Mobility Level [facility] Mobility Walk 25 feet or more Mobility Calculator Rehab PT IP Eval Objective Appearance Patient Behavior Appropriate,Cooperative Patient Orientation Person Difficulty following none instructions Speech Pattern Clear Ambulation Patient Able to Yes Ambulate Ambulation Observation IP General Gait Wide Based Gait,Shuffling Step Pattern Observation Ambulation Distance 30 (feet) Ambulation Assistive Straight Cane Device Ambulation Ability Supervision/Stand by Balance Ability to Arise Able, uses arms to help Sitting Balance Steady, safe Standing Balance Steady, wide stance Dynamic Sitting Good Balance Ability Dynamic Standing Fair Balance Ability Transfers Bed Transfer Ability Supervision/Stand by Sit to Stand Bed Supervision/Stand by Transfer Ability Rehab PT IP prob,goals,plan Problems Date of Evaluation: 07/14/25 Rehab Potential Rehab Potential Innapropriate for Skilled Therapy Discharge Plan PT Discharge Plan Pt presents at his baseline in mobility and is not appropriate for skilled PT at this time. Recommending OP PT to address baseline strength and balance deficits. Eval Complexity Eval Charge Codes 00321 - Moderate Complexity PHYSICIAN CERTIFICATION: I certify the specified therapy services for Guevara Kim are required, authorized, and reviewed every 30 days.
[2025-07-14] MEDS: BUMETANIDE 1MG/4ML VIAL 1 MG IV (09:09)
--- NOTE | 2025-07-14 09:11 | HMH.PTEV ---
Physical Therapy Evaluation Rehab PT IP Evaluation Start: 07/13/25 16:59 Freq: ONCE Status: Active Protocol: Document 07/14/25 09:03 BETTIE (Rec: 07/14/25 09:07 BETTIE [id number]) Subjective/History History History Per H&P: Mr. Kim is an 84-year-old male with multiple comorbidities including CKD, HFpEF, COPD. Presented to the ER with complaint of worsening shortness of breath over the past several days to a week. He has had intermittent cough, nonproductive. No alexandra fever. Presented to the ER because of his shortness of breath and chest discomfort. On arrival, found to have elevated BNP of 10,000, white count of 13 .5. Chest imaging obtained with x-ray showing right middle lobe consolidation concerning for pneumonia versus effusion. Started on azithromycin and Rocephin. Medicine consulted for admission and further management. After arriving to the floor, patient is stable on room air with mild respiratory distress. Review of chart shows echo obtained a year ago in June 2024 with RVSP of 40-45, EF of 60%. Subjective Subjective PLOF: IND with mobility using a SPC. Some falls reported d/t pt's big family dog. HOME: Lives with family in a home with 4 [address]. ASSIST: Pt has 20/02 family assistance at home if needed . [facility] How much help from another person do you currently need... Turning from your None back to your side while in a flat bed without using bedrails? Moving from lying on None back to sitting on the side of a flat bed without using bedrails? Moving to and from a None bed to a chair ( including a wheelchair)? Standing up from a None chair using your arms? (e.g., wheelchair, bedside chair) Walking in hospital None room? Climbing 3-5 steps A little with a railing? Mobility Score 23 Mobility Level [facility] Mobility Walk 25 feet or more Mobility Calculator Rehab PT IP Eval Objective Appearance Patient Behavior Appropriate,Cooperative Patient Orientation Person Difficulty following none instructions Speech Pattern Clear Ambulation Patient Able to Yes Ambulate Ambulation Observation IP General Gait Wide Based Gait,Shuffling Step Pattern Observation Ambulation Distance 30 (feet) Ambulation Assistive Straight Cane Device Ambulation Ability Supervision/Stand by Balance Ability to Arise Able, uses arms to help Sitting Balance Steady, safe Standing Balance Steady, wide stance Dynamic Sitting Good Balance Ability Dynamic Standing Fair Balance Ability Transfers Bed Transfer Ability Supervision/Stand by Sit to Stand Bed Supervision/Stand by Transfer Ability Rehab PT IP prob,goals,plan Problems Date of Evaluation: 07/14/25 Rehab Potential Rehab Potential Innapropriate for Skilled Therapy Discharge Plan PT Discharge Plan Pt presents at his baseline in mobility and is not appropriate for skilled PT at this time. PT recommending pt's family continuing pt supervision for safety. Recommending OP PT to address baseline strength and balance deficits. Recommending nursing staff continue getting pt up OOB per activity orders. Eval Complexity Eval Charge Codes 36993 - Moderate Complexity PHYSICIAN CERTIFICATION: I certify the specified therapy services for Guevara Kim are required, authorized, and reviewed every 30 days.
--- NOTE | 2025-07-14 10:11 | HMH.PHAAMS2 ---
- Antimicrobial Stewardship Review culture & sensitivity review Stewardship interventions: culture & sensitivity review (CURRENTLY ON ARTHUR AND BILL, WBC 11.2K, AFEBRILE, CX PENDING.)
[2025-07-14] MEDS: SPIRONOLACTONE 25MG TABLET 50 MG PO (10:27)
--- NOTE | 2025-07-14 12:09 | SW/DCPLANNER ---
Addendum entered by Mary Goss 07/14/25 13:04: [facility] is able to accept patient. Roger Barton Original Note: Spoke with patient and patient's daughter and sons regarding home health or outpatient therapy once patient is medically stable and ready for discharge. Patient and his family stated that they are not interested in outpatient therapy but are willing to do home health. Patient stated that he would like for me to send his information to [facility] and i will update once i hear back if they can accept patient or not. Roger Barton
[2025-07-14] MEDS: AZITHROMYCIN 500 MG in 0.9 % SODIUM CHLORIDE 250 ML 250 MG IV (15:13)
--- NOTE | 2025-07-14 17:12 | PC.NURSE ---
patient is a/ox4 but hard of hearing. up ad ana, family remained at bedside for majority of the shift. had a BM this shift. no c/o pain. tolerating diet, currently up to chair, call light within reach. no further requests at this time.
--- NOTE | 2025-07-14 18:20 | CA_ITS ---
APPROVED REPORT EXAM: Comprehensive 2D, Doppler, and color-flow Echocardiogram Manager Aviation: Clementine Scott RT(R) Ht: 5 ft 5 in Wt: 162lbs BSA: 1.81 BP: 155/86 mmHg Indications: evaluate EF, SOB, hyperlipidemia, COPD, chronic AFIB, pacemaker, renal stents 2D Dimensions LA Volume 53.10 mL LA Volume Index 29.871335 mL/m2 (M/F) 16-34 EF AP4 24.00 % GL Strain -10.1 % M-Mode Dimensions RVDd 3.53 cm (0.9-2.6) LA Diam 4.04 cm (1.9-4.0) LVDd 4.06 cm (3.5-5.7) LVDs 3.34 cm (3.5-5.7) IVSd 1.02 cm (0.6-1.1) PWd 1.02 cm (0.6-1.1) EF (Teich) 37.40% FS 17.70% EDV (Teich) 72.50 mL ESV (Teich) 45.40 mL Left Ventricle The left ventricle is normal size. Left ventricular systolic function is normal. The left ventricular ejection fraction is within the normal range. There is increased left ventricular wall thickness. There is normal LV segmental wall motion. Transmitral Doppler flow pattern suggests impaired LV relaxation. LVEF is 55% Right Ventricle Right ventricle is mildly dilated. The right ventricular systolic function is normal. Atria Left atrium is moderately dilated. Right atrium is moderately dilated. There is no color Doppler evidence of interatrial shunt. Aortic Valve The aortic valve is mildly thickened. There is no hemodynamically significant aortic valvular stenosis. Trace aortic regurgitation is present. Mitral Valve The mitral valve is normal in structure. No evidence of mitral valve stenosis. Trace mitral regurgitation is present. Tricuspid Valve The tricuspid valve leaflets are thin and pliable. Trace tricuspid regurgitation. There is insufficient TR jet to estimate RVSP. Pulmonic Valve The pulmonary valve is grossly normal in structure. Mild pulmonic valve regurgitation is present. Great Vessels The aortic root is normal in size. IVC is normal in size and collapses >50% with inspiration. Pericardium There is no pericardial effusion. Other Information Study Quality: Fair Conclusion Normal biventricular systolic function. Mild RV dilation. Biatrial dilation. Mild PI. Electronically signed by : Emily Perdue MD 07/14/2025 13:25:55
[2025-07-14] MEDS: TAMSULOSIN 0.4MG CAPSULE 0.8 MG PO (20:10)
[2025-07-14] MEDS: ATORVASTATIN 40MG TABLET 80 MG PO (20:10)
[2025-07-14] MEDS: GABAPENTIN 300MG CAPSULE 300 MG PO (20:10)
[2025-07-14] MEDS: ACETAMINOPHEN 325MG TAB 650 MG PO (20:10)
[2025-07-14] MEDS: PANTOPRAZOLE 40MG TABLET 40 MG PO (20:10)
[2025-07-14] MEDS: APIXABAN 5MG TABLET 5 MG PO (20:10)
[2025-07-14] MEDS: FAMOTIDINE 20MG TABLET 40 MG PO (20:10)
[2025-07-15] VITALS: TEMP 36.6
--- NOTE | 2025-07-15 03:30 | PC.NURSE ---
Patient is alert and oriented x4; very hard of hearing. He was observed to have both wakeful periods and resting periods (eyes closed, respirations even and unlabored) throughout the night. Multiple family members have rotated residing at the bedside. Patient has not had any complaints of worsening shortness of breath or chest pain this shift. Scattered audible wheezing can be heard. Oxygen saturations > 90% on room air. Patient did spike a fever yesterday evening (oral temperature 100.3) of which Tylenol was given per SEP. Room temperature was decreased and top blankets were removed. Patient has remained afebrile (99.4 and 97.8 rechecks) thus far since Tylenol administration. He has not had any complaints of pain, nausea, etc. as well. Physical assessment (see nursing shift biophysical intervention) was performed as appropriately this shift. Vital signs Q8HR. Patient gets up with assistance as needed with ambulation/transfers. Urinal at bedside for voiding needs. Scheduled medications administered per SEP. Breathing treatments given by RTs. At this time, the patient remains resting in bed with no apparent distress. No acute changes noted thus far. Call light within reach. Contact precautions ongoing for previous bed bug findings, blue adhesive mat outside patient's room.
[2025-07-15 04:00] VITALS: BP 140/65; PULSE 80; RESP 20; TEMP 37.6; O2SAT 93; BMI 25.7
[2025-07-15 06:19] VITALS: PULSE 70; O2SAT 90
[2025-07-15] MEDS: IPRATROPIUM/ALBUTEROL 3 ML NEB IH ×2 (06:19→11:05)
[2025-07-15] MEDS: BUDESONIDE 0.5MG/2ML NEB 0.5 MG IH (06:19)
[2025-07-15] MEDS: FLUTICASONE/UMECLIDIN/VILANTER 100/62.5/25MCG INHALER 1 PUFF IH (06:23)
[2025-07-15 06:40] LABS: Hematocrit 31.7 % (42.0-52.0); Hemoglobin 10.2 g/dL (14.1-18.0); Mean Corpuscular HGB Conc 32.2 g/dL (31.8-35.4); Mean Corpuscular Hemoglobin 28.7 pg (27.0-31.2); Mean Corpuscular Volume 89.0 fl (80-94); Platelet Count 229 K/mm3 (142-424); Red Blood Count 3.56 M/mm3 (4.60-6.20); White Blood Count 10.4 K/mm3 (4.8-10.8)
[2025-07-15 07:07] LABS: Chloride 103 mmol/L (98-107); Potassium 3.4 mmoL/L (3.5-5.1); Sodium 135 mmol/L (136-145)
[2025-07-15 07:10] LABS: Anion Gap 11.4 mEq/L (5-15); Blood Urea Nitrogen 26 mg/dl (9-20); Carbon Dioxide 24 mmol/L (22.0-30.0); Creatinine Clearance Estimated 31 mL/min (50-200); Creatinine,Serum 1.80 mg/dl (0.66-1.25); Estimated Glomerular Filt Rate 36 ml/min (>60); GFR (African American) 44 ML/MIN (>60)
[2025-07-15 07:11] LABS: Calcium 8.2 mg/dl (8.4-10.2); Glucose 139 mg/dl (74-100)
[2025-07-15 07:52] LABS: Total Cells Counted 100
[2025-07-15 07:53] LABS: RBC Morphology Normal
[2025-07-15 08:00] VITALS: BP 135/67; PULSE 80; RESP 18; TEMP 36.9; O2SAT 94
--- NOTE | 2025-07-15 08:26 | P.PN_ITS ---
Subjective *Date: 07/15/25 *Time: 09:03 Interval history: Signs stable with patient throughout the night. He states that patient did not sleep. He has been able to ambulate in the room with assistance. He denies chest pain. He states his breathing is better. He has not required continuous oxygen. He does have some productive cough. He has been able to eat. Hemoglobin is 10.2 white blood cell count has decreased to normal at 10,000 blood chemistry shows sodium of 135 potassium of 3.4. BUN is 26 and creatinine is 1.8. Sputum cultures are pending. Blood cultures are negative thus far. Echo with the following results: Conclusion Normal biventricular systolic function. Mild RV dilation. Biatrial dilation. Mild PI. Exam Data for Last 24 hours Vital signs and Labs for Last 24 Hours: Temp Pulse Resp BP Pulse Ox O2 Del Method O2 Flow Rate 98.5 F 80 18 135/67 94 L Room Air 2 07/15/25 08:00 07/15/25 08:00 07/15/25 08:00 07/15/25 08:00 07/15/25 08:00 07/15/25 08:00 07/14/25 06:26 Laboratory Results - last 24 hr 07/15/25 05:25: WBC 10.4, RBC 3.56 L, Hgb 10.2 L, Hct 31.7 L, MCV 89.0, MCH 28.7, MCHC 32.2, RDW 15.7, Plt Count 229, MPV 12.5 H, Neut % (Auto) 83.1 H, Lymph % (Auto) 6.1 L, [place] % (Auto) 10.1 H, Eos % (Auto) 0.1, Baso % (Auto) 0.2, Neut # (Auto) 8.7 H, Lymph # (Auto) 0.6 L, [place] # (Auto) 1.1 H, Eos # (Auto) 0.0, Baso # (Auto) 0.0, Total Counted 100, Neutrophils % (Manual) 85 H, Lymphocytes % (Manual) 5 L, Monocytes % (Manual) 9, Basophils % (Manual) 1.0, Platelet Estimate Normal, RBC Morphology Normal, Sodium 135 L, Potassium 3.4 L, Chloride 103, Carbon Dioxide 24, Anion Gap 11.4, BUN 26 H, Creatinine 1.80 H, Estimated Creat Clear 31, Estimated GFR 36 L, Est GFR ( Amer) 44 L, Glucose 139 H, Calcium 8.2 L I & O for Last 24 hours: Intake & Output 07/12/25 07/13/25 07/14/25 07/15/25 11:59 11:59 11:59 11:59 Intake Total 1520 / 1520 1170 / 1170 Output Total 250 / 250 400 / 400 Balance 1270 / 1270 770 / 770 Weight 159 lb 3.2 oz 160 lb Microbiology Reports for the Last 24 Hours: Microbiology 07/13/25 15:05 Blood Blood Culture - Preliminary NO GROWTH AFTER 24 HOURS 07/13/25 15:10 Blood Blood Culture - Preliminary NO GROWTH AFTER 24 HOURS 07/14/25 10:29 Sputum - Expectorated Sputum Gram Stain - Final Constitutional Constitutional: no acute distress Comments: Sitting on the bedside completing his breakfast. He appears comfortable. *Routine Respiratory Exam Respiratory: Present decreased breath sounds (Posteriorly although air sounds are improved.) and wheezes (Scattered posteriorly) *Routine Cardiovascular Exam Cardiovascular: Present RRR *Routine Extremities Exam Extremities: Absent edema or calf tenderness *Routine Neurological Exam Neurological: Present alert and oriented X3 Comments: Very hard of hearing Assessment and Plan *Assessment and plan (1) Pneumonia: Status: Acute Category: Medical Code(s): J18.9 - Pneumonia, unspecified organism (2) Acute on chronic hypoxic respiratory failure: Status: Acute Category: Medical Code(s): J96.21 - Acute and chronic respiratory failure with hypoxia (3) Acute on chronic heart failure with preserved ejection fraction (HFpEF): Status: Acute Category: Medical Code(s): I50.33 - Acute on chronic diastolic (congestive) heart failure (4) HTN (hypertension): Status: Chronic Qualifiers: Hypertension type: essential hypertension Qualified Code(s): I10 - Essential (primary) hypertension Category: Medical Code(s): I10 - Essential (primary) hypertension (5) HLD (hyperlipidemia): Status: Chronic Qualifiers: Hyperlipidemia type: mixed hyperlipidemia Qualified Code(s): E78.2 - Mixed hyperlipidemia Category: Medical Code(s): E78.5 - Hyperlipidemia, unspecified (6) COPD (chronic obstructive pulmonary disease): Status: Acute Category: Medical Code(s): J44.9 - Chronic obstructive pulmonary disease, unspecified (7) CKD stage 3b, GFR 30-44 ml/min: Status: Chronic Category: Medical Code(s): N18.32 - Chronic kidney disease, stage 3b (8) NSTEMI (non-ST elevated myocardial infarction): Status: Acute Category: Medical Code(s): I21.4 - Non-ST elevation (NSTEMI) myocardial infarction (9) DM2 (diabetes mellitus, type 2): Status: Acute Qualifiers: Diabetes mellitus complication detail: with polyneuropathy Diabetes mellitus complication status: with neurologic complications Diabetes mellitus snf insulin use: without ocean transportation intermediary use Qualified Code(s): E11.42 - Type 2 diabetes mellitus with diabetic polyneuropathy Category: Medical Code(s): E11.9 - Type 2 diabetes mellitus without complications (10) Diastolic dysfunction: Status: Acute Category: Medical Code(s): I51.89 - Other ill-defined heart diseases (11) A-fib: Status: Acute Qualifiers: Atrial fibrillation type: longstanding persistent Qualified Code(s): I48.11 - Longstanding persistent atrial fibrillation Category: Medical Code(s): I48.91 - Unspecified atrial fibrillation (12) COPD (chronic obstructive pulmonary disease): Status: Acute Qualifiers: COPD type: COPD with acute exacerbation Qualified Code(s): J44.1 - Chronic obstructive pulmonary disease with (acute) exacerbation Category: Medical Code(s): J44.9 - Chronic obstructive pulmonary disease, unspecified (13) CAD (coronary artery disease): Status: Acute Qualifiers: Associated angina: with unspecified form of angina Coronary Disease- Associated Artery/Lesion type: [place] artery [place] vs. transplanted heart: [place] heart Qualified Code(s): I25.119 - Atherosclerotic heart disease of [place] coronary artery with unspecified angina pectoris Category: Medical Code(s): I25.10 - Atherosclerotic heart disease of [place] coronary artery without angina pectoris (14) Elevated brain natriuretic peptide (BNP) level: Status: Acute Category: Medical Code(s): R79.89 - Other specified abnormal findings of blood chemistry (15) Hypokalemia: Status: Acute Category: Medical Code(s): E87.6 - Hypokalemia Plan Patient has improved. Will continue current care and add p.o. potassium. Dr. Quan entry - Saw patient, agree with above note. Probable discharge home later today.
[2025-07-15] MEDS: EMPAGLIFLOZIN 10MG TABLET 10 MG PO (08:28)
[2025-07-15] MEDS: LISINOPRIL 5MG TABLET 5 MG PO (08:28)
[2025-07-15] MEDS: CLOPIDOGREL 75MG TAB 75 MG PO (08:28)
[2025-07-15] MEDS: SPIRONOLACTONE 25MG TABLET 50 MG PO (08:28)
[2025-07-15] MEDS: BUMETANIDE 1MG/4ML VIAL 1 MG IV (08:28)
[2025-07-15] MEDS: FERROUS SULFATE 325MG TABLET 325 MG PO (08:28)
[2025-07-15] MEDS: APIXABAN 5MG TABLET 5 MG PO (08:28)
[2025-07-15] MEDS: METFORMIN 500MG TABLET 1000 MG PO (08:28)
[2025-07-15] MEDS: GABAPENTIN 300MG CAPSULE 300 MG PO (08:29)
--- NOTE | 2025-07-15 09:05 | HMH.PHAAMS2 ---
- Antimicrobial Stewardship Review culture & sensitivity review Stewardship interventions: culture & sensitivity review (CURRENTLY RECEIVING AZITH AND ROCEPHIN, WBC DOWN FROM 13.5K TO 10.4K, AFEBRILE, BLX CX-NO GROWTH, SPUTUM PENDING.)
[2025-07-15] MEDS: POTASSIUM CHLORIDE 20MEQ TAB 20 MEQ PO (09:38)
[2025-07-15 11:05] VITALS: PULSE 70; PULSE 72; O2SAT 92
[2025-07-15] MEDS: AZITHROMYCIN 250MG TABLET 500 MG PO (12:32)
--- NOTE | 2025-07-16 10:32 | SW/DCPLANNER ---
Spoke with patient's daughter on the phone. Patient's daughter stated that he is doing well except his oxygen dropped this morning and she had to put his oxygen back on him. Patient's daughter stated that she is aware of his upcoming appointment. Patient's daughter stated that they were able to get his new medicine picked up from the pharmacy. patient's daughter asked if she her dad can get a portable oxygen tank. Patient's daughter stated that she has no concerns or questions at this time. Roger Barton
== END 2025-07-15 13:44 | disposition home or self-care (01) | DRG 193 ==
LOC: ER 15:53 → 2ND 16:10
PROVIDERS: Admitting Provider Internal Medicine Adolescent Medicine; Emergency Provider Student in an Organized Health Care Education/Training Program; PCP Family Medicine; Visit Provider Family Medicine
DX: J18.9 Pneumonia, unspecified organism (principal); I21.A1 Myocardial infarction type 2; I50.33 Acute on chronic diastolic (congestive) heart failure; J96.21 Acute and chronic respiratory failure with hypoxia; I48.11 Longstanding persistent atrial fibrillation; I13.0 Hypertensive heart and chronic kidney disease with heart failure and stage 1 through stage 4 chronic kidney disease, or unspecified chronic kidney disease; J44.0 Chronic obstructive pulmonary disease with (acute) lower respiratory infection; J44.9 Chronic obstructive pulmonary disease, unspecified; E78.2 Mixed hyperlipidemia; N18.32 Chronic kidney disease, stage 3b; I51.89 Other ill-defined heart diseases; E87.6 Hypokalemia; Z79.01 Long term (current) use 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s; Z79.02 Long term (current) use of antithrombotics/antiplatelets; Z79.84 Long term (current) use of oral hypoglycemic drugs; Z88.0 Allergy status to penicillin; K21.9 Gastro-esophageal reflux disease without esophagitis; Z95.0 Presence of cardiac pacemaker; Z86.73 Personal history of transient ischemic attack (TIA), and cerebral infarction without residual deficits; Z86.16 Personal history of COVID-19; Z95.5 Presence of coronary angioplasty implant and graft; Z87.891 Personal history of nicotine dependence; Z99.81 Dependence on supplemental oxygen; E11.42 Type 2 diabetes mellitus with diabetic polyneuropathy; E11.22 Type 2 diabetes mellitus with diabetic chronic kidney disease; I25.10 Atherosclerotic heart disease of native coronary artery without angina pectoris
CPT/HCPCS: 36415; 71045; 80048; 80053; 82803; 83605; 83735; 83880; 84484; 85007; 85014; 85018; 85025; 85048; 85049; 87040; 87070; 87077; 87205; 87631; 89220; 93005; 93306; 94640; 94761; 97162; 97165; 99285; J0456; J0696; J1650; J1939; J7050; J7120